=== PATIENT | male | born 1970 | race Caucasian/White ===

== ENCOUNTER → 2016-08-27 | Outpatient (CLI) | payer MEDICARE, MEDICAID ==
[~2016-08-27] MED LIST: /MOXI40TA OR; ATOR40TA PO; AUGM875T27 PO; BUSP15TA47 PO; BUSP30TA PO; CELE40TA OR; FLUO60TA PO; FOLI1TAB OR; IBUP400T OR; LIPI20TA PO; LISI40TAB PO; LISIPOW OR; LYRI20SO PO; MOTR200T44 PO; NORV5TAB PO; OLAN10TA2 PO; OMEP20TA7 OR; OMEP40CA2 PO; PREG25CA PO; PROZ40CA PO; SUBO8MIS SL; THIA100T OR; WELLTAB38 PO; [UNRECOGNIZED DRUG - OTHER]
--- NOTE | 2016-08-27 11:53 | REP ---
Clinical: Pain. History of prior surgery. Technique: AP, lateral, bilateral oblique views of the left wrist. Comparison: 06/18/2016. Findings: The patient is noted to be status post lunate resection for Kienback's disease. Dystrophic calcifications and presumed chondrocalcinosis as well as mild swelling is again identified and essentially unchanged. No new acute findings are identified. Impression: Chronic postsurgical/degenerative changes similar to the 06/18/2016. Signed by Sai Patterson MD 08/27/2016 11:45 A
== END ==
LOC: M RAD 11:27
PROVIDERS: ATTEND Physician Assistant Medical
DX: M25.532 Pain in left wrist (principal); Z47.89 Encounter for other orthopedic aftercare

== ENCOUNTER 2016-08-30 22:11 | Inpatient (IN) | payer MEDICARE, MEDICAID ==
[~2016-08-30] VITALS: Ht 182.9 cm; Wt 108.9 kg
[~2016-08-30 22:11] MED LIST changes: -ATOR40TA PO; -BUSP30TA PO; -FLUO60TA PO; -OLAN10TA2 PO; -WELLTAB38 PO
[2016-08-30] MEDS ORDERED: ASPIRIN 81 MG CHEW TABLET As Ordered ONE (22:30)
[2016-08-30 23:44] LABS: BASO % 0.3 % (0.0-1.0); EOS # 0.3 K/mm3 (0.0-0.50); EOS % 2.5 % (0.0-3.0); LARGE UNSTAINED CELL # 0.3 K/mm3 (0.0-0.4); LARGE UNSTAINED CELL % 3.2 % (0.0-4.0); LYMPH # 3.2 K/mm3 (1.5-4.5); LYMPH % 26.1 % (24.0-44.0); MEAN CORPUSCULAR HEMOGLOBIN 28.3 pg (27.0-33.0); MEAN CORPUSCULAR HGB CONC 33.3 g/dl (32.0-36.5); MEAN CORPUSCULAR VOLUME 84.9 fl (80.0-96.0); MONO # 1.2 K/mm3 (0.0-0.8); MONO % 10.9 % (0.0-5.0); NEUTROPHILS # 6.2 K/mm3 (1.8-7.7); PLATELET COUNT, AUTOMATED 176 k/mm3 (150-450); RED CELL DISTRIBUTION WIDTH 14.8 % (11.5-14.5); WHITE BLOOD COUNT 10.8 K/mm3 (4.0-10.0)
[2016-08-30] MEDS ORDERED: fentaNYL 100 MCG/2 ML INJECTION (J3010) As Ordered ONE (23:58)
[2016-08-31] VITALS (7 sets, daily range): BP systolic 112–137; BP diastolic 68–86
[2016-08-31 00:13] LABS: ALKALINE PHOSPHATASE 82 U/L (45-117); ALT/SGPT 153 U/L (12-78); ANION GAP 8 MEQ/L (8-16); AST/SGOT 84 U/L (15-37); BLOOD UREA NITROGEN 15 MG/DL (7-18); CALCIUM LEVEL 7.8 MG/DL (8.5-10.1); CARBON DIOXIDE LEVEL 25 MEQ/L (21-32); CHLORIDE LEVEL 112 MEQ/L (98-107); CREATININE FOR GFR 1.28 MG/DL (0.70-1.30); GLOMERULAR FILTRATION RATE > 60.0 (>60); GLUCOSE, FASTING 85 MG/DL (70-105); SODIUM LEVEL 145 MEQ/L (136-145)
[2016-08-31 00:14] LABS: ALBUMIN 3.3 GM/DL (3.2-5.2); ALBUMIN/GLOBULIN RATIO 0.89 (1.00-1.93); BILIRUBIN,DIRECT < 0.1 MG/DL (0.0-0.2); BILIRUBIN,TOTAL 0.3 MG/DL (0.2-1.0)
[2016-08-31] MEDS ORDERED: FUROSEMIDE 40 MG/4 ML VIAL (J1940) As Ordered ONE ×3 (00:40→04:18)
[2016-08-31] MEDS ORDERED: ATOR40TA PO (01:45)
[2016-08-31] MEDS ORDERED: FLUO60TA PO (01:45)
[2016-08-31] MEDS ORDERED: IPRATROPIUM 0.5MG/ALBUTEROL 2.5MG INH SOL UD 3ML (DUONEB)(J7620) NEB PRN (01:45)
[2016-08-31] MEDS ORDERED: LISI40TAB PO (01:45)
[2016-08-31] MEDS ORDERED: BUSP30TA PO (01:45)
[2016-08-31] MEDS ORDERED: OLAN10TA2 PO (01:45)
[2016-08-31] MEDS ORDERED: NICOTINE 14 MG/24 HR TRANSDERMAL TD SCH (02:00)
[2016-08-31] MEDS ORDERED: WELLTAB38 PO (02:27)
[2016-08-31] MEDS ORDERED: PERCOCET 5MG/325MG TAB As Ordered ONE ×2 (02:33→08:49)
[2016-08-31] MEDS: PERCOCET 5MG/325MG TAB PO PRN ×4 (02:35→21:53)
[2016-08-31] MEDS: FUROSEMIDE 40 MG/4 ML VIAL (J1940) IV SCH ×6 (04:22→23:32)
--- NOTE | 2016-08-31 06:14 | ECGEPIP ---
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
--- NOTE | 2016-08-31 07:05 | HPE ---
DATE OF ADMISSION: 08/31/2016 PRIMARY CARE PROVIDER: Blayne Mayfield, psychiatrist. In the past, it has been Dr. Farrell. CODE STATUS: FULL CODE. CHIEF COMPLAINT: Increasing shortness of breath, dyspnea on exertion, worse over the last 2-3 days. HISTORY OF PRESENT ILLNESS: Mr. Hearn is a pleasant, 45-year-old gentleman seen in the emergency department with increasing lower extremity edema, anasarca with abdominal distension, shortness breath, dyspnea on exertion, paroxysmal nocturnal dyspnea (PND), orthopnea and happened to sleep on three pillows at night for greater than 2 weeks. His who is present with him informs me that his symptoms have been longstanding and progressively worse over the last year to 2 years and the patient has been medically noncompliant with his medications and outpatient followups. He also describes today intermittently noticing substernal chest pain, left shoulder pain and radiation down his left arm. Currently, this has dissipated. He denies any nausea or vomiting. His appetite has been relatively good. He denies any fevers, chills, cough. 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 He does continue to smoke approximately a pack a day. He does have a previous history of polysubstance abuse/use as well as a previous history of alcohol abuse. PAST MEDICAL HISTORY: Includes major depression/bipolar disorder, hypertension, gastroesophageal reflux disease, osteoarthritis, chronic low back pain, tobacco use, history of hepatitis C, polysubstance abuse. PAST SURGICAL HISTORY: Left wrist repair with previous nerve disorder, polypectomy of the throat, and right wrist repair as well. SOCIAL HISTORY: The patient is , lives at home. Smokes approximately a pack a day. Currently denies any alcohol use, but he does have a prior history of alcohol abuse as well as polysubstance abuse. No recent travel. No sick contacts. FAMILY HISTORY: Noncontributory. ALLERGIES: NO KNOWN DRUG ALLERGIES. HOME MEDICATIONS: - Norvasc 10 mg daily - BuSpar 10 mg twice a day - lisinopril 40 mg daily - omeprazole 40 mg daily - lorazepam 0.5 mg nightly - Wellbutrin XL 150 mg daily REVIEW OF SYSTEMS: Constitutional: He denies fevers, chills, rigors. No change in appetite. However, he has had some generalized weakness and shortness of breath. HEENT: No headache, lightheadedness, dizziness. No blurry vision, double vision or tinnitus. Pulmonary: Dyspnea with occasional wheeze, nonproductive cough. No hemoptysis. Cardiovascular: Substernal chest pain earlier today with radiation to jaw, left shoulder and arm. He also describes symptoms of PND, orthopnea, lower extremity edema, dyspnea on exertion. He is able to climb a flight of stairs in his house , which has 20 steps. He states he is quite short of breath and diaphoretic when he reaches the top but he is able to make it the full flight of stairs without stopping. Gastrointestinal (GI): No nausea, vomiting, diarrhea. Denies hematochezia or melena. Genitourinary (): No dysuria, frequency or hematuria. Musculoskeletal: Generalized weakness. Does have chronic low back pain, apparently a history of osteoarthritis of the cervical spine. Neurologic: No paresthesias, paralysis. No history of seizure disorder. Lymphatics: No lumps, bumps, swelling in the neck, axilla or groin. No history of weight loss. No night sweats. Endocrine: Negative for diabetes. Negative for thyroid disorder. Hematology: No history of bleeding or bruising disorder. No history of venous thromboembolism. Oncology: No history of cancer. Psychiatric: Positive for major depression/bipolar disorder and anxiety. History of polysubstance abuse, alcohol abuse. 10-point review of system complete. Pertinent positives are listed. PHYSICAL EXAMINATION: Temperature is 97.2. Pulse is 86 and regular. Respiratory rate is 18 with some auditory wheeze, but he is be able speak complete sentences. Blood pressure (BP ) 141/92. SpO2 is 92% on room air. General: The patient appears to be in no acute distress. He is alert, oriented , pleasant to talk to. HEENT: Head is atraumatic, normocephalic. Jugular venous distention (JVD) is noted to the angle of the jaw. Throat is clear. Neck: Supple. Lungs: Intermittent expiratory wheeze, occasional crackles in the basilar region. Heart: Regular rate and rhythm. Abdomen: Soft, distended. Positive bowel sounds. No masses. No rebound. Lower extremities: He does have 1-2+ edema to the mid huerta. No calf tenderness. LABORATORY DATA: White count is 10.8, hemoglobin 13.4, platelets are 176,000. Sodium 145, potassium 4.0, chloride 112, bicarbonate 25, anion gap 8, BUN is 15, creatinine 1.28, glucose 85, calcium 7.8, total bilirubin 0.3, direct bilirubin less than 0.1, AST 84, ALT 153, alkaline phosphatase is 82, CK is 581, CK-MB is 3.2, troponin less than 0.02, BNP is 79.1, albumin is 3.3. Does appear to have some cephalization of pulmonary vasculature. There is no appreciable pleural effusion. No consolidation. 12-lead EKG: Sinus rhythm with no acute ST-T wave abnormality. However, there is some borderline left axis deviation. Ventricular rate is 83 beats per minute. IMPRESSION: Mr. Hearn is a 45-year-old gentleman who has had increasing shortness of breath, paroxysmal nocturnal dyspnea, orthopnea, dyspnea on exertion and substernal chest pain this evening who will be admitted for cardiac rule out as well as workup for acutely decompensated congestive heart failure. He did receive 80 of Lasix IV in the emergency department and will need to keep him on telemetry overnight, cycle his cardiac enzymes, fluid restrict and start net negative Lasix to see how he improves his symptomatology. PROBLEM LIST: 1. Heart failure, new onset acutely decompensated. 2. Substernal chest pain. 3. Hypertension, possibly related to hypertensive heart disease. 4. Medical noncompliance. 5. Gastroesophageal reflux disease. 6. Depression and anxiety. 7. Tobacco use. Counseling provided. Encourage smoking cessation. 8. History of alcohol abuse. 9. History of hepatitis C. 10. History of polysubstance abuse. 11. Chronic low back pain 12. History of cervical osteoarthritis. PLAN: The patient will be admitted to progressive care unit (PCU) on telemetry per Dr. Carvajal. 80 of Lasix IV given times one now in the emergency department. Will continue with net negative Lasix, fluid restrict 1800 mL/hr. Continue home medications. Hold parameters on Norvasc and lisinopril. Will check a 2-D echo tomorrow, cycles his cardiac marker panel and cardiac rehabilitation. Nicotine patch for smoking cessation and deep venous thrombosis (DVT) prophylaxis with Lovenox. DISPOSITION: Anticipate the patient will be here than two midnights. [employer]
--- NOTE | 2016-08-31 08:02 | REP ---
Clinical: Chest pain and shortness of breath. Technique: PA and lateral. Comparison: 09/23/2015. Findings: Diffuse coarsened interstitial markings and very subtle hazy bilateral opacities suggest bronchitis and multifocal pneumonia / atelectasis. Mediastinum and cardiac silhouette stable. No effusion. No pneumothorax. Skeletal structures intact. Impression: Findings suggest bronchitis with multifocal atelectasis/infiltrate. Signed by Sai Patterson MD 08/31/2016 07:53 A
[2016-08-31] MEDS: LISINOPRIL 40 MG TAB PO SCH (09:18)
[2016-08-31] MEDS: buPROPion **XL** TABLET 150MG (WELLBUTRIN XL) PO SCH (09:18)
[2016-08-31] MEDS: busPIRone 10 MG TAB PO SCH ×2 (09:18→20:33)
[2016-08-31] MEDS: OMEPRAZOLE 20 MG CAP PO SCH (09:18)
[2016-08-31] MEDS: amLODIPine 5 MG TAB PO SCH (09:18)
[2016-08-31 13:34] LABS: INR 0.99
--- NOTE | 2016-08-31 14:51 | EDDOCDS ---
Nurse's Notes [facility] Name: Misty Shay Age: 45 yrs Sex: Male : 1970 Arrival Date: 08/30/2016 Time: 22:11 Bed Admit Hold Private MD: Blayne Mayfield Diagnosis: Acute combined systolic (congestive) and diastolic (congestive) heart failure Presentation: 08/30 22:19 Presenting complaint: Patient states: shortness of breath, leg and feet swelling, chest sls1 tightness, reports out of blood pressure medication. Reports swelling for two days, and generalized body aches, with back pain. Pt also reports has not been voiding. Aspirin was not taken prior to arrival. Adult Sepsis Screening: The patient does not have new or worsening altered mentation. Patient's respiratory rate is less than 22. Systolic blood pressure is greater than 100. Patient has a qSOFA score of 0- Negative Sepsis Screen. Suicide/Homicide risk assessment- the patient denies having any suicidal and/or homicidal ideations and does not present with any other emotional, behavioral or mental health complaints. Status: Patient is not a member services representative or dependent. Transition of care: patient was not received from another setting of care. 22:19 Acuity: TAMIE Level 2 sls1 22:19 Method Of Arrival: Walkin/Carried/Asstd sls1 Triage Assessment: 22:23 General: Appears in no apparent distress, Behavior is appropriate for age, cooperative. sls1 Pain: Location: back, chest, right leg and left leg Pain currently is 6 out of 10 on a pain scale. Pt Declines HIV testing. The patient is triaged at the bedside. See Assessment in Nurses Notes section of ED record. Neurological: No deficits noted. Cardiovascular: Chest pain is described as Pain is 6 out of 10 on a pain scale. radiates Does not radiate. episodes are continuous began. Respiratory: Reports shortness of breath at rest on exertion. Historical: - Allergies: no known allergies; - Home Meds: 1. amlodipine 10 mg Oral tab 1 tab once daily 2. BuSpar 10 mg oral tab 2 times per day 3. lisinopril 40 mg Oral tab 1 tab once daily 4. omeprazole 40 mg Oral cpDR once daily 5. lorazepam 0.5 mg Oral tab nightly 6. Wellbutrin XL 150 mg Oral Tb24 1 tab once daily - PMHx: bone disease; Depression; Hypertension; Bipolar disorder; - PSHx: left wrsit repair; nerve disorder; Polypectomy throat; Right wrist repair; - Social history: Smoking status: Patient uses tobacco products, current every day smoker. No barriers to communication noted, The patient speaks fluent Senegalese, Speaks appropriately for age, former etoh use. - Family history: Not pertinent. - : The pt / caregiver states he / she is not on anticoagulants. Home medication list is obtained from the patient. - Exposure Risk Screening:: None identified. Screenin:36 Screening information is obtained from the patient. Fall risk: No risks identified. ko2 Assistance ADL's: requires no assistance with activities of daily living. Abuse/DV Screen: The patient / caregiver reports he/she is: not in a situation that causes fear, pain or injury. Nutritional screening: No deficits noted. Advance Directives: Currently, there is no health care proxy. There is no active DNR order. There is no living will. There is no Power of Watermelon Harvesting Supervisor. home support is adequate. Assessment: 23:36 General: Appears in no apparent distress, comfortable, Behavior is appropriate for age, ko2 cooperative. Pain: Location: chest and back Pain currently is 6 out of 10 on a pain scale. Cardiovascular: Heart tones S1 S2 present Rhythm is regular. Respiratory: Airway is patent Respiratory effort is even, unlabored. Derm: Skin is normal. 08/31 00:30 General: Appears in no apparent distress, comfortable, Behavior is appropriate for age, ko2 cooperative. Pain: Location: back. Neurological: Level of Consciousness is awake, alert. Respiratory: Airway is patent Respiratory effort is even, unlabored. Derm: Skin is normal. 01:39 General: Appears in no apparent distress, comfortable, Behavior is appropriate for age, ko2 cooperative. Neurological: Level of Consciousness is awake, alert. Respiratory: Airway is patent Respiratory effort is even, unlabored. Derm: Skin is normal. 02:16 General: Report given to brewer nurse Rosanna Senior RN Please see Intelligent[employer] for further ko2 documentation. Vital Signs: 08/30 22:13 BP 148 / 91; Pulse 89; Resp 18 S; Temp 97.2(O); Pulse Ox 97% on R/A; Weight 108.86 kg gr2 (R); Height 6 ft. 0 in. (182.88 cm) (R); Pain 4/10; 08/31 00:02 BP 141 / 92 (auto/); ko2 00:02 Pulse 86 MON; Pulse Ox 92% ; ko2 00:28 BP 144 / 80 (auto/); ko2 00:29 Pulse 86 MON; ko2 00:58 BP 123 / 69 (auto/); ko2 00:58 Pulse 84 MON; Pulse Ox 94% ; ko2 01:28 BP 122 / 71 (auto/); ko2 01:29 Pulse 84 MON; Pulse Ox 95% ; ko2 08/30 22:13 Body Mass Index 32.55 (108.86 kg, 182.88 cm) gr2 Vitals: 08/30 22:13 Log In Time: August 30, 2016 at 22:13. RN notified that patient meets Red Flag gr2 criteria. ED Course: 22:12 Patient visited by Justin Maxwell. gr2 22:12 Blayne Mayfield is Private Physician. gr2 22:12 Patient moved to Waiting gr2 22:16 Rina Trivedi,OUMAR is Primary Nurse. sls1 22:16 Patient moved to 8 sls1 22:20 Kels[facility] Mcdonald FNP [facility] le 22:21 Triage Initiated sls1 22:30 Patient visited by Kelsy Mcdonald FNP. le 22:30 Patient visited by Kelsy Mcdonald FNP. le 22:34 Patient visited by Mirta Cmapos, CITLALLI. cln 22:34 EKG done. (by ED staff). Reviewed by Kelsy MACIAS. cln 22:54 Patient name changed from Misty\S\Giuseppe\S\Shay\S\ to Misty\S\A\S\Shay. EDMS 23:04 [facility] Payment Agreement was scanned into [employer] and attached to record. [facility] 23:35 Patient visited by Rina Trivedi RN. ko2 23:35 B-Type Natiuretic Peptide Sent. ko2 23:35 Basic Metabolic Profile Sent. ko2 23:35 CBC with Diff Sent. ko2 23:35 Cardiac Injury Profile Sent. ko2 23:35 Troponin Sent. ko2 23:35 Inserted saline lock: 20 gauge in left antecubital area and blood collected. The ko2 patient tolerated the procedure well. 23:36 Patient visited by Rina Trivedi RN. ko2 08/31 00:04 LIVER PROFILE Sent. ko2 00:10 The patient / caregiver is instructed regarding the plan of care and ED course. Cardiac ko2 monitor on. Pulse ox on. NIBP on. 00:29 Patient visited by Rina Trivedi RN. ko2 00:48 José Lopez DO is Hospitalizing Provider. le 02:23 Patient moved to 10 jul 03:26 Patient moved to Admit Hold ml3 06:33 EKG-ADULT Returned. EDMS 07:14 Primary Nurse role handed off by Rina Trivedi RN js13 08:12 Chest, 2 View (pa\E\lat) Returned. EDMS 14:39 No procedures done that require assistance. me3 Administered Medications: 08/30 23:35 Drug: Aspirin 324 mg [aspirin 81 mg chewable tablet (4 tabs)] Route: PO; ko2 08/31 00:03 Drug: fentaNYL (PF) 50 mcg [fentanyl (PF) 50 mcg/mL injection solution (1 mL)] Route: ko2 IVP; Site: left antecubital; 00:46 CANCELLED (Other Intervention Used): Furosemide 40 mg IVP once le 00:53 Drug: Furosemide 80 mg [furosemide 10 mg/mL injection solution (8 mL)] Route: IVP; mb9 Site: left antecubital; Output: 00:30 Urine: 525.00ml (Voided); Total: 525.00ml. ko2 01:39 Urine: 1450.00ml (Voided); Total: 1975.00ml. ko2 Order Results: Lab Order: B-Type Natiuretic Peptide; SPEC'M 08/30/16 23:33 Test: BRAIN NATRIURETIC PEPTIDE; Value: 79.1; Range: <100; Units: PG/ML; Status: F Lab Order: Basic Metabolic Profile; SPEC'M 08/30/16 23:33 Test: GLUCOSE, FASTING; Value: 85; Range: 70-105; Units: MG/DL; Status: F Test: BLOOD UREA NITROGEN; Value: 15; Range: 7-18; Units: MG/DL; Status: F Test: CREATININE FOR GFR; Value: 1.28; Range: 0.70-1.30; Units: MG/DL; Status: F Test: GLOMERULAR FILTRATION RATE; Value: > 60.0; Range: >60; Status: F Test: SODIUM LEVEL; Value: 145; Range: 136-145; Units: MEQ/L; Status: F Test: POTASSIUM SERUM; Value: 4.0; Range: 3.5-5.1; Units: MEQ/L; Status: F Test: CHLORIDE LEVEL; Value: 112; Range: 98-107; Abnormal: Above high normal; Units: MEQ/L; Status: F Test: CARBON DIOXIDE LEVEL; Value: 25; Range: 21-32; Units: MEQ/L; Status: F Test: ANION GAP; Value: 8; Range: 8-16; Units: MEQ/L; Status: F Test: CALCIUM LEVEL; Value: 7.8; Range: 8.5-10.1; Abnormal: Below low normal; Units: MG/DL; Status: F Test Note: ; Units are mL/min/1.73 m2 Chronic Kidney Disease Staging per NKF: Stage I & II GFR >=60 Normal to Mildly Decreased Stage III GFR 30-59 Moderately Decreased Stage IV GFR 15-29 Severely Decreased Stage V GFR <15 Very Little GFR Left ESRD GFR <15 on PHYSIOGNOMIST Lab Order: CBC with Diff; SPEC'M 08/30/16 23:33 Test: WHITE BLOOD COUNT; Value: 10.8; Range: 4.0-10.0; Abnormal: Above high normal; Units: K/mm3; Status: F Test: RED BLOOD COUNT; Value: 4.73; Range: 4.30-6.10; Units: M/mm3; Status: F Test: HEMOGLOBIN; Value: 13.4; Range: 14.0-18.0; Abnormal: Below low normal; Units: g/dl; Status: F Test: HEMATOCRIT; Value: 40.1; Range: 42.0-52.0; Abnormal: Below low normal; Units: %; Status: F Test: MEAN CORPUSCULAR VOLUME; Value: 84.9; Range: 80.0-96.0; Units: fl; Status: F Test: MEAN CORPUSCULAR HEMOGLOBIN; Value: 28.3; Range: 27.0-33.0; Units: pg; Status: F Test: MEAN CORPUSCULAR HGB CONC; Value: 33.3; Range: 32.0-36.5; Units: g/dl; Status: F Test: RED CELL DISTRIBUTION WIDTH; Value: 14.8; Range: 11.5-14.5; Abnormal: Above high normal; Units: %; Status: F Test: PLATELET COUNT, AUTOMATED; Value: 176; Range: 150-450; Units: k/mm3; Status: F Test: NEUTROPHILS %; Value: 57.0; Range: 36.0-66.0; Units: %; Status: F Test: LYMPH %; Value: 26.1; Range: 24.0-44.0; Units: %; Status: F Test: MONO %; Value: 10.9; Range: 0.0-5.0; Abnormal: Above high normal; Units: %; Status: F Test: EOS %; Value: 2.5; Range: 0.0-3.0; Units: %; Status: F Test: BASO %; Value: 0.3; Range: 0.0-1.0; Units: %; Status: F Test: LARGE UNSTAINED CELL %; Value: 3.2; Range: 0.0-4.0; Units: %; Status: F Test: NEUTROPHILS #; Value: 6.2; Range: 1.8-7.7; Units: K/mm3; Status: F Test: LYMPH #; Value: 3.2; Range: 1.5-4.5; Units: K/mm3; Status: F Test: MONO #; Value: 1.2; Range: 0.0-0.8; Abnormal: Above high normal; Units: K/mm3; Status: F Test: EOS #; Value: 0.3; Range: 0.0-0.50; Units: K/mm3; Status: F Test: BASO #; Value: 0.0; Range: 0.0-0.2; Units: K/mm3; Status: F Test: LARGE UNSTAINED CELL #; Value: 0.3; Range: 0.0-0.4; Units: K/mm3; Status: F Lab Order: Cardiac Injury Profile; SPEC'M 08/30/16 23:33 Test: CPK CREATINE PHOSPHOKINASE; Value: 581; Range: 39-308; Abnormal: Above high normal; Units: U/L; Status: F Test: CK-MB VALUE MASS; Value: 3.2; Range: 0.0-3.6; Units: NG/ML; Status: F Test: MB/CK RELATIVE INDEX; Value: 0.55; Range: < OR =4; Status: F Test Note: ; DIAGNOSIS CRITERIA MMB ng/ml Relative Index (RI) NON-AMI < or = 5 N/A STEVENS ZONE > 5 < or = 4 AMI > 5 > 4 Lab Order: Troponin; SPEC' 08/30/16 23:33 Test: TROPONIN I; Value: < 0.02; Range: < 0.10; Units: NG/ML; Status: F Test Note: ; Troponin I Reference Interval for [email or web address] LOCI: 99th Percentile= 0.00-0.045 ng/ml Risk Stratification: <= 0.10 ng/ml Decreased Risk for Adverse Clinical Events. 0.10-1.50 ng/ml Increased Risk for Adverse Clinical Events. Evaluation of additional criterion and/or repeat testing in 2-6 hours is suggested to rule out myocardial damage. >= 1.50 ng/ml Indicative of Myocardial Injury. Lab Order: LIVER PROFILE; [facility] 08/30/16 23:33 Test: AST/SGOT; Value: 84; Range: 15-37; Abnormal: Above high normal; Units: U/L; Status: F Test: ALT/SGPT; Value: 153; Range: 12-78; Abnormal: Above high normal; Units: U/L; Status: F Test: ALKALINE PHOSPHATASE; Value: 82; Range: 45-117; Units: U/L; Status: F Test: BILIRUBIN,TOTAL; Value: 0.3; Range: 0.2-1.0; Units: MG/DL; Status: F Test: BILIRUBIN,DIRECT; Value: < 0.1; Range: 0.0-0.2; Units: MG/DL; Status: F Test: TOTAL PROTEIN; Value: 7.0; Range: 6.4-8.2; Units: GM/DL; Status: F Test: ALBUMIN; Value: 3.3; Range: 3.2-5.2; Units: GM/DL; Status: F Test: ALBUMIN/GLOBULIN RATIO; Value: 0.89; Range: 1.00-1.93; Abnormal: Below low normal; Status: F Lab Order: CARDIAC MARKER PANEL; [facility]08/31/16 06:07 Test: CPK CREATINE PHOSPHOKINASE; Value: 518; Range: 39-308; Abnormal: Above high normal; Units: U/L; Status: F Test: CK-MB VALUE MASS; Value: 3.1; Range: 0.0-3.6; Units: NG/ML; Status: F Test: MB/CK RELATIVE INDEX; Value: 0.59; Range: < OR =4; Status: F Test: TROPONIN I; Value: < 0.02; Range: < 0.10; Units: NG/ML; Status: F Test Note: ; DIAGNOSIS CRITERIA MMB ng/ml Relative Index (RI) NON-AMI < or = 5 N/A STEVENS ZONE > 5 < or = 4 AMI > 5 > 4 Lab Order: CARDIAC MARKER PANEL; [facility]08/31/16 11:46 Test: CPK CREATINE PHOSPHOKINASE; Value: 429; Range: 39-308; Abnormal: Above high normal; Units: U/L; Status: F Test: CK-MB VALUE MASS; Value: 2.2; Range: 0.0-3.6; Units: NG/ML; Status: F Test: MB/CK RELATIVE INDEX; Value: 0.51; Range: < OR =4; Status: F Test: TROPONIN I; Value: < 0.02; Range: < 0.10; Units: NG/ML; Status: F Test Note: ; DIAGNOSIS CRITERIA MMB ng/ml Relative Index (RI) NON-AMI < or = 5 N/A STEVENS ZONE > 5 < or = 4 AMI > 5 > 4 Lab Order: C REACTIVE PROTEIN QUANTITATIV; [facility]08/31/16 10:42 Test: C REACTIVE PROTEIN QUANTITATIV; Value: 0.79; Range: 0.00-0.30; Abnormal: Above high normal; Units: MG/DL; Status: F Lab Order: ERYTHROCYTE SEDIMENTATION RATE; [facility]08/31/16 10:42 Test: ERYTHROCYTE SEDIMENTATION RATE; Value: 14; Range: 0-15; Units: mm/hr; Status: F Lab Order: HEPATITIS PROFILE; [facility]08/31/16 10:42 Test: HEPATITIS C VIRUS NEHEMIAH INDEX; Value: > 11.0; Range: <0.8; Abnormal: Above high normal; Units: INDEX; Status: F Test: HEPATITIS B SURFACE ANTIGEN; Value: NEGATIVE; Range: NEGATIVE; Status: F Test: HEPATITIS B CORE ANTIBODY IGM; Value: NEGATIVE; Range: NEGATIVE; Status: F Test: HEPATITIS A ANTIBODY IGM; Value: NEGATIVE; Range: NEGATIVE; Status: F Test Note: ; This screening test for Hepatitis C Virus was above the 1.0 cutoff index value and will be sent for Hep C RNA OC testing to confirm or exclude active Hepatitis C Virus infection. Screening test Positive samples with high index values (>11.0) usually (95%) confirm Positive, but <5 of every 100 samples with this result might be a false positive and Hep C RNA OC testing will aid in patient management. Lab Order: LACTIC ACID LEVEL, LACTATE; SPEC'M 08/31/16 10:41 Test: LACTIC ACID SEPSIS PROTOCOL; Value: 1.3; Range: 0.4-2.0; Units: MMOL/L; Status: F Lab Order: INFLUENZA A&B RAPID ANTIGEN; SPEC'M 08/31/16 10:39 Test: INFLUENZA A RAPID SCR by ICA; Value: INFLUENZA A RESULTS NEGATIVE; Status: F Test: INFLUENZA A RAPID SCR by ICA; Value: Comments:; Status: F Test: INFLUENZA B RAPID SCR by ICA; Value: INFLUENZA B RESULTS NEGATIVE; Status: F Test Note: ; The Influenza test is a direct rapid immunoassay for the qualitative detection of Influenza viral antigen. Cell culture (Viral Culture) testing should be considered to confirm NEGATIVE results and to assist in detecting other viruses that can provide similar clinical symptoms. Please contact the lab within 24 hours ([phone]) if confirmatory testing is desired. Lab Order: RESPIRATORY PANEL; SPEC'M 08/31/16 10:39 Test: RESPIRATORY PANEL; Value: RP PANEL RESULT NEGATIVE by PCR; Status: F Test: RESPIRATORY PANEL; Value: Comments:; Status: F Test Note: ; This respiratory PCR panel detects Influenza A H1, H3 and 2009 H1 viruses, Influenza B virus, Respiratory syncytial virus, Human metapneumovirus, Parainfluenza virus 1, 2, 3 and 4, Adenovirus, Rhinovirus/Enterovirus, Coronavirus HKU1, NL63, OC43 and 229E, Bordetella pertussis, Mycoplasma pneumoniae and Chlamydia pneumoniae. Lab Order: PROTHROMBIN TIME PROFILE\E\INR; SPEC'M 08/31/16 13:12 Test: PROTHROMBIN TIME; Value: 13.2; Range: 12.3-14.5; Units: SECONDS; Status: F Test: INR; Value: 0.99; Status: F Test Note: ; THERAPUTIC HUMAN INR VALUES INDICATIONS NORMAL RANGES PROPHYLAXIS/TREATMENT OF: VENOUS THROMBOSIS 2.0-3.0 PULMONARY EMBOLISM 2.0-3.0 PREVENTION OF SYSTEMIC EMBOLISM FROM: TISSUE HEART VALVES 2.0-3.0 ACUTE MYOCARDIAL INFARCTION 2.0-3.0 VALVULAR HEART DISEASE 2.0-3.0 ATRIAL FIBRILLATION 2.0-3.0 MECHANICAL VALVES(HIGH RISK) 2.5-3.5 RECURRENT MYOCARDIAL INFARCTION 2.5-3.5 Lab Order: D-DIMER QUANT; SPEC'M 08/31/16 13:12 Test: D-DIMER QUANT; Value: 352.1; Range: <500; Units: ng/ml; Status: F Radiology Order: EKG-ADULT Test: EKG-ADULT REASON FOR EXAMINATION: Chest Pain; Stationary ECG Study; [facility] - ED; ; Test Date: 2016-08-30; Pat Name: IMSTY SHAY Department:; Room: -; 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; : 1970 Requested By: JAGUAR Lee; Order Number: [id number] Reading MD: Elian Lilly; Measurements; Intervals [place]; Rate: 83 P: 28; MN: 177 QRS: -24; QRSD: 102 T: 30; QT: 376; QTc: 444; Interpretive Statements; SINUS RHYTHM; BORDERLINE LEFT AXIS DEVIATION; SIMILAR TO 04/02/16; Electronically Signed On 08-31-2016 6:14:32 EST by Elian Lilly; Radiology Order: Chest, 2 View (pa\E\lat) Test: Chest, 2 View (pa\E\lat) REASON FOR EXAMINATION: Chest Pain;Shortness of Breath; Clinical: Chest pain and shortness of breath.; ; Technique: PA and lateral.; ; Comparison: 09/23/2015.; ; Findings:; Diffuse coarsened interstitial markings and very subtle hazy bilateral opacities; suggest bronchitis and multifocal pneumonia / atelectasis. Mediastinum and; cardiac silhouette stable. No effusion. No pneumothorax. Skeletal structures; intact.; ; Impression:; Findings suggest bronchitis with multifocal atelectasis/infiltrate.; ; ; Signed by; Misty Patterson MD 08/31/2016 07:53 A; Outcome: 00:48 Decision to Hospitalize by Provider. rick 02:11 Discharge Assessment: Patient awake, alert and oriented x 3. No cognitive and/or ko2 functional deficits noted. Patient verbalized understanding of disposition instructions. patient administered narcotics - yes. 14:39 The following High Risk Discharge criteria are identified: None. Admitted PACU holding, me3 accompanied by nurse, on monitor, with chart. Condition: stable. 14:40 Property :Personal belongings accompany Pt. me3 14:41 No special radiology studies were completed. me3 14:51 Patient left the ED. srm Signatures: Dispatcher [employer]DA[employer] Cece Hatch, RN RN alyx Hassan, Lois Elaine RN OUMAR Patel, Vitaliy, Food And Beverage Cashier Unit ml3 Genesis Trujillo,FRESH FOOD MANAGER FRESH FOOD MANAGER me3 Kelsy Mcdonald, NIGHT ORDER SELECTOR NIGHT ORDER SELECTOR Brigida Monroe RN RN sls1 Breanna KumarRN RN js13 Justin Maxwell gr2 Rina TrivediRN RN emeterio2 Juanita Trejo Michael,RN RN mb9 Mirta Campos, CITLALLI INVENTORY ACCOUNTANT cln Corrections: (The following items were deleted from the chart) 08/30 23:58 23:35 LIVER PROFILE+LAB sent. [address] 08/31 02:17 02:16 General: Report given to brewer nurse Rosanna Senior RN. [place] [id number] MTDD
--- NOTE | 2016-08-31 14:51 | EDDOCDS ---
Physician Documentation [facility] Name: Sai Hearn Age: 45 yrs Sex: Male : 1970 Arrival Date: 08/30/2016 Time: 22:11 Bed Admit Hold Private MD: Blayne Mayfield Disposition: 08/31/16 00:48 Hospitalization ordered by José Lopez for Inpatient Admission. Preliminary diagnosis is Acute combined systolic (congestive) and diastolic (congestive) heart failure. - Bed requested for Admit. - Status is Inpatient Admission. srm - Condition is Stable. - Problem is new. - Symptoms are unchanged. Historical: - Allergies: no known allergies; - Home Meds: 1. amlodipine 10 mg Oral tab 1 tab once daily 2. BuSpar 10 mg oral tab 2 times per day 3. lisinopril 40 mg Oral tab 1 tab once daily 4. omeprazole 40 mg Oral cpDR once daily 5. lorazepam 0.5 mg Oral tab nightly 6. Wellbutrin XL 150 mg Oral Tb24 1 tab once daily - PMHx: bone disease; Depression; Hypertension; Bipolar disorder; - PSHx: left wrsit repair; nerve disorder; Polypectomy throat; Right wrist repair; - Social history: Smoking status: Patient uses tobacco products, current every day smoker. No barriers to communication noted, The patient speaks fluent Chadian, Speaks appropriately for age, former etoh use. - Family history: Not pertinent. - : The pt / caregiver states he / she is not on anticoagulants. Home medication list is obtained from the patient. - Exposure Risk Screening:: None identified. Vital Signs: 08/30 22:13 BP 148 / 91; Pulse 89; Resp 18 S; Temp 97.2(O); Pulse Ox 97% on R/A; Weight 108.86 kg / gr2 240 lbs (R); Height 6 ft. 0 in. (182.88 cm) (R); Pain 4/10; 08/31 00:02 BP 141 / 92 (auto/); ko2 00:02 Pulse 86 MON; Pulse Ox 92% ; ko2 00:28 BP 144 / 80 (auto/); ko2 00:29 Pulse 86 MON; ko2 00:58 BP 123 / 69 (auto/); ko2 00:58 Pulse 84 MON; Pulse Ox 94% ; ko2 01:28 BP 122 / 71 (auto/); ko2 01:29 Pulse 84 MON; Pulse Ox 95% ; ko2 08/30 22:13 Body Mass Index 32.55 (108.86 kg, 182.88 cm) gr2 MDM: 08/30 22:17 ECG WITH READING ER PHYS+CARDIAG ordered. EDMS 22:21 Aspirin Chewable Tablet 324 mg PO once ordered. le 22:21 Bait Packer/Pulse Ox/q 30 min VS ordered. le 22:21 IV Saline Lock ordered. le 22:21 Rhythm Strip to chart ordered. le 22:21 Undress patient appropriately for examination ordered. le 22:23 Chest, 2 View (pa\E\lat) Ordered. EDMS 22:23 B-Type Natiuretic Peptide Ordered. EDMS 22:23 Basic Metabolic Profile Ordered. EDMS 22:23 CBC with Diff Ordered. EDMS 22:23 Cardiac Injury Profile Ordered. EDMS 22:23 Troponin Ordered. EDMS 22:52 Financial registration complete. [facility] 23:04 [facility] Payment Agreement was scanned into [employer] and attached to record. [facility] 23:56 fentaNYL (PF) 50 mcg IVP once ordered. le 23:56 CBC with Diff Reviewed. le 23:58 LIVER PROFILE Ordered. EDMS 08/31 00:05 B-Type Natiuretic Peptide Reviewed. le 00:17 Basic Metabolic Profile Reviewed. le 00:17 LIVER PROFILE Reviewed. le 00:17 Troponin Reviewed. le 00:25 Bladder Scan please ordered. le 00:25 Basic Metabolic Profile Reviewed. le 00:25 Cardiac Injury Profile Reviewed. le 00:25 LIVER PROFILE Reviewed. le 00:25 Troponin Reviewed. le 00:46 Furosemide 80 mg IVP once ordered. le 00:47 BED REQUEST+ADM ordered. EDMS 01:52 PHYSICAL THERAPY EVAL & TREAT ordered. EDMS 01:53 Admission / Observation Status ordered. EDMS 01:53 ECHOCARD,DOPPLER/COLOR FLOW ordered. EDMS 01:53 CARDIAC MARKER PANEL Ordered. EDMS 01:54 CARDIAC MARKER PANEL Ordered. EDMS 02:06 2 GRAM SODIUM DIET ordered. EDMS 10:21 C REACTIVE PROTEIN QUANTITATIV Ordered. EDMS 10:21 ERYTHROCYTE SEDIMENTATION RATE Ordered. EDMS 10:22 HEPATITIS PROFILE Ordered. EDMS 10:22 LACTIC ACID LEVEL, LACTATE Ordered. EDMS 10:22 INFLUENZA A&B RAPID ANTIGEN Ordered. EDMS 10:22 RESPIRATORY PANEL Ordered. EDMS 10:22 Abdomen, limited US Ordered. EDMS 12:10 HCV RNA OC QUALITATIVE Ordered. EDMS 12:51 PROTHROMBIN TIME PROFILE\E\INR Ordered. EDMS 12:55 D-DIMER QUANT Ordered. EDMS Administered Medications: 08/30 23:35 Drug: Aspirin 324 mg [aspirin 81 mg chewable tablet (4 tabs)] Route: PO; ko2 08/31 00:03 Drug: fentaNYL (PF) 50 mcg [fentanyl (PF) 50 mcg/mL injection solution (1 mL)] Route: ko2 IVP; Site: left antecubital; 00:46 CANCELLED (Other Intervention Used): Furosemide 40 mg IVP once le 00:53 Drug: Furosemide 80 mg [furosemide 10 mg/mL injection solution (8 mL)] Route: IVP; mb9 Site: left antecubital; Signatures: Dispatcher [employer] EDCece Self, RN OUMAR Mcdonald, Kelsy, RN ENT RN ENT Brigida Monroe RN RN sls1 Rina Trivedi RN RN ko2 Juanita Trejo Michael RN mb9 The chart was reviewed and I authenticate all verbal orders and agree with the evaluation and treatment provided.Corrections: (The following items were deleted from the chart) 08/30 23:58 22:39 LIVER PROFILE+LAB ordered. EDMS EDMS 08/31 00:46 00:38 Furosemide 40 mg IVP once ordered. le le 00:46 00:46 Furosemide 40 mg IVP once ordered. le le 02:05 01:53 2 GRAM SODIUM DIET ordered. EDMS EDMS 12:55 12:45 D-DIMER QUANT ordered. EDMS EDMS Attachments: 08/30 23:04 [facility] Payment Agreement [facility]
[2016-08-31] MEDS: LORazepam 0.5 MG TAB PO PRN (20:49)
[2016-09-01] MEDS: FUROSEMIDE 40 MG/4 ML VIAL (J1940) IV SCH ×2 (03:55→08:11)
[2016-09-01] MEDS: PERCOCET 5MG/325MG TAB PO PRN ×3 (03:55→17:29)
[2016-09-01 04:00] VITALS: BP 124/86
[2016-09-01 06:29] LABS: MEAN CORPUSCULAR HEMOGLOBIN 28.6 pg (27.0-33.0); MEAN CORPUSCULAR HGB CONC 33.8 g/dl (32.0-36.5); MEAN CORPUSCULAR VOLUME 84.6 fl (80.0-96.0); RED CELL DISTRIBUTION WIDTH 14.7 % (11.5-14.5); WHITE BLOOD COUNT 6.9 K/mm3 (4.0-10.0)
[2016-09-01 06:54] LABS: ANION GAP 8 MEQ/L (8-16); BLOOD UREA NITROGEN 16 MG/DL (7-18); CALCIUM LEVEL 8.6 MG/DL (8.5-10.1); CARBON DIOXIDE LEVEL 29 MEQ/L (21-32); CHLORIDE LEVEL 102 MEQ/L (98-107); CREATININE FOR GFR 1.21 MG/DL (0.70-1.30); GLOMERULAR FILTRATION RATE > 60.0 (>60); GLUCOSE, FASTING 124 MG/DL (70-105); POTASSIUM SERUM 3.8 MEQ/L (3.5-5.1); SODIUM LEVEL 139 MEQ/L (136-145)
--- NOTE | 2016-09-01 07:50 | REP ---
Clinical: Elevated liver function tests . Technique: Fitzpatrick scale ultrasound using curved array transducer. Findings: The liver and pancreas are normal in contour, size, and echogenicity without focal hepatic or pancreatic lesions identified. The gallbladder is normal without gallstones, wall thickening or pericholecystic fluid. No biliary ductal dilatation is appreciated, and the common bile duct measures 3.6 mm diameter. The right kidney is normal in reniform shape without hydronephrosis and measures 10.3 x 4.0 x 6.0 cm. No ascites. Visualized portions of the abdominal aorta normal. Impression: Normal right upper quadrant and gallbladder abdominal ultrasound. Signed by Sai Patterson MD 09/01/2016 07:42 A
[2016-09-01 08:00] VITALS: BP 139/87
[2016-09-01] MEDS: amLODIPine 5 MG TAB PO SCH (08:11)
[2016-09-01] MEDS: OMEPRAZOLE 20 MG CAP PO SCH (08:11)
[2016-09-01] MEDS: LISINOPRIL 40 MG TAB PO SCH (08:12)
[2016-09-01] MEDS: busPIRone 10 MG TAB PO SCH ×2 (08:12→20:12)
[2016-09-01] MEDS: buPROPion **XL** TABLET 150MG (WELLBUTRIN XL) PO SCH (08:12)
[2016-09-01 11:10] VITALS: BP 122/78
[2016-09-01] MEDS ORDERED: IBUPROFEN 800 MG TAB PO PRN (12:45)
[2016-09-01 14:00] VITALS: BP 117/61
--- NOTE | 2016-09-01 16:15 | IPNPDOC ---
Subjective Date Seen The patient was seen on 09/01/16. Subjective Chief Complaint/HPI The patient is a 45-year-old male admitted with a reason for visit of Chest Pain , Chf. General: Denies: Chills, Night Sweats Constitutional: Denies: Chills, Fever Eyes: Denies: Pain, Vision change ENT: Denies: Ear Pain, Head Aches Skin: Denies: Lesions, Rash Pulmonary: Denies: Cough, Dyspnea Cardiovascular: Denies: Chest Pain, Orthopnea, Palpitations Gastrointestinal: Denies: Nausea, Vomiting Genitourinary: Denies: Dysuria Hematologic: Denies: Bleeding Excessively, Bruising Objective Physical Examination General Exam: Positive: Alert, Cooperative, No Acute Distress ENT Exam: Positive: Atraumatic, Mucous membr. moist/pink Neck Exam: Negative: JVD Chest Exam: Positive: Clear to auscultation, Normal air movement Heart Exam: Positive: Normal S1, Normal S2, Rate Normal Abdomen Exam: Positive: Soft, Negative: Tenderness Extremity Exam: Negative: Swelling, Tenderness Assessment /Plan Plan/VTE VTE Prophylaxis Ordered?: Yes Plan 1. Heart failure, new onset acutely decompensated. 2-D echocardiogram pending Status post IV Lasix every 4 hours, this has been transitioned to by mouth Lasix 40 mg daily Daily weights Monitor I's and O's Fluid restriction The patient states that his volume status has markedly improved, as well as his dyspnea The patient has a net negative fluid balance of 5 L over the last 48 hours The patient has been weaned off of all supplemental oxygen We will continue to monitor the patient's volume status 2. Hypertension, possibly related to hypertensive heart disease. Continue current antihypertensive regimen 3. Gastroesophageal reflux disease. Continue PPI 4. Depression and anxiety. Continue current medication regimen 5. Tobacco use Encourage smoking cessation. 6. History of alcohol abuse. 7. History of hepatitis C. 8. History of polysubstance abuse. 9. Chronic low back pain 10. History of cervical osteoarthritis. DVT prophylaxis-Lovenox VS, I&O, 24H, Fishbone Vital Signs/I&O Vital Signs Date Time Temp Pulse Resp B/P Pulse Ox O2 Delivery O2 Flow Rate FiO2 09/01/16 14:00 95.4 81 18 117/61 94 Room Air I&O- Last 24 Hours up to 6 AM 09/01/16 06:00 Intake Total 1230 ml Output Total 2475 ml Balance -1245 ml Laboratory Data 24H LABS Laboratory Tests 2 09/01/16 06:09: Anion Gap 8, Blood Urea Nitrogen 16, Creatinine 1.21, Sodium Level 139, Potassium Level 3.8, Chloride Level 102, Carbon Dioxide Level 29, Calcium Level 8.6, Glomerular Filtration Rate > 60.0 CBC/BMP Laboratory Tests 09/01/16 06:09 Calcium Level 8.6, Red Blood Count 5.46, Mean Corpuscular Volume 84.6, Mean Corpuscular Hemoglobin 28.6, Mean Corpuscular Hemoglobin Concent 33.8, Red Cell Distribution Width 14.7 H Microbiology Microbiology 08/31/16 Influenza Virus Type A Antigen - Final, Complete 08/31/16 Influenza Virus Type B Antigen - Final, Complete 08/31/16 Respiratory Virus Panel (PCR) ([facility]) - Final, Complete JANIS STEINER MD Sep 01, 2016 16:15
[2016-09-01] MEDS: LORazepam 0.5 MG TAB PO PRN (20:11)
[2016-09-01] MEDS: NYSTATIN 100,000 UNITS/GM TOPICAL PWD 15 GM TOP PRN (21:52)
[2016-09-01 22:00] VITALS: BP 104/69
[2016-09-02] MEDS: PERCOCET 5MG/325MG TAB PO PRN ×3 (05:24→17:33)
[2016-09-02 05:31] LABS: MEAN CORPUSCULAR HEMOGLOBIN 29.3 pg (27.0-33.0); MEAN CORPUSCULAR HGB CONC 34.2 g/dl (32.0-36.5); MEAN CORPUSCULAR VOLUME 85.7 fl (80.0-96.0); RED CELL DISTRIBUTION WIDTH 14.7 % (11.5-14.5)
[2016-09-02 05:45] LABS: ANION GAP 7 MEQ/L (8-16); CALCIUM LEVEL 8.7 MG/DL (8.5-10.1); CARBON DIOXIDE LEVEL 28 MEQ/L (21-32); CHLORIDE LEVEL 105 MEQ/L (98-107); CREATININE FOR GFR 1.27 MG/DL (0.70-1.30); GLOMERULAR FILTRATION RATE > 60.0 (>60); GLUCOSE, FASTING 125 MG/DL (70-105); POTASSIUM SERUM 4.2 MEQ/L (3.5-5.1); SODIUM LEVEL 140 MEQ/L (136-145)
[2016-09-02 05:58] LABS: BLOOD UREA NITROGEN 30 MG/DL (7-18)
[2016-09-02 06:00] VITALS: BP 129/88
[2016-09-02] MEDS: OMEPRAZOLE 20 MG CAP PO SCH (09:00)
[2016-09-02] MEDS: buPROPion **XL** TABLET 150MG (WELLBUTRIN XL) PO SCH (09:00)
[2016-09-02] MEDS: ENOXAPARIN 40 MG/0.4 ML SYRINGE (J1650) SC SCH (09:00)
[2016-09-02] MEDS: LISINOPRIL 40 MG TAB PO SCH (09:01)
[2016-09-02] MEDS: amLODIPine 5 MG TAB PO SCH (09:01)
[2016-09-02] MEDS: busPIRone 10 MG TAB PO SCH ×2 (09:01→20:08)
[2016-09-02] MEDS: NYSTATIN 100,000 UNITS/GM TOPICAL PWD 15 GM TOP PRN ×2 (09:02→20:11)
[2016-09-02] MEDS: FUROSEMIDE 40 MG TAB PO SCH (09:02)
[2016-09-02] MEDS ORDERED: INFLUENZA QUADRIVALENT PF VACCINE 0.5ML SYRINGE/VIAL (90686) IM ONE (13:00)
[2016-09-02 14:00] VITALS: BP 115/56
--- NOTE | 2016-09-02 14:15 | IPNPDOC ---
Subjective Date Seen The patient was seen on 09/02/16. Subjective Chief Complaint/HPI The patient is a 45-year-old male admitted with a reason for visit of Chest Pain , Chf. General: Denies: Chills, Night Sweats Constitutional: Denies: Chills, Fever Eyes: Denies: Pain, Vision change ENT: Denies: Ear Pain, Head Aches Skin: Denies: Lesions, Rash Pulmonary: Denies: Cough, Dyspnea Cardiovascular: Denies: Chest Pain, Palpitations Gastrointestinal: Denies: Nausea, Vomiting Genitourinary: Denies: Dysuria, Frequency Hematologic: Denies: Bleeding Excessively, Bruising Objective Physical Examination General Exam: Positive: Alert, Cooperative, No Acute Distress ENT Exam: Positive: Atraumatic, Mucous membr. moist/pink Neck Exam: Negative: JVD Chest Exam: Positive: Clear to auscultation, Normal air movement Heart Exam: Positive: Normal S1, Normal S2, Rate Normal Abdomen Exam: Positive: Soft, Negative: Tenderness Extremity Exam: Negative: Swelling, Tenderness Assessment /Plan Plan/VTE VTE Prophylaxis Ordered?: Yes Plan 1. Heart failure, new onset acutely decompensated. 2-D echocardiogram pending Continue on Lasix 40 mg daily Daily weights Monitor I's and O's Fluid restriction We will continue to monitor the patient's volume status, and await the results of the 2-D echo in an effort to better titrate his diuretic dosage. 2. Hypertension, possibly related to hypertensive heart disease. Continue current antihypertensive regimen 3. Gastroesophageal reflux disease. Continue PPI 4. Depression and anxiety. Continue current medication regimen 5. Tobacco use Encourage smoking cessation. 6. History of alcohol abuse. 7. History of hepatitis C. 8. History of polysubstance abuse. 9. Chronic low back pain 10. History of cervical osteoarthritis. DVT prophylaxis-Lovenox VS, I&O, 24H, Fishbone Vital Signs/I&O Vital Signs Date Time Temp Pulse Resp B/P Pulse Ox O2 Delivery O2 Flow Rate FiO2 09/02/16 14:00 97.5 89 18 115/56 97 Room Air I&O- Last 24 Hours up to 6 AM 09/02/16 06:00 Intake Total 1920 ml Output Total 1700 ml Balance 220 ml Laboratory Data 24H LABS Laboratory Tests 2 09/02/16 05:11: Anion Gap 7L, Blood Urea Nitrogen 30#H, Creatinine 1.27, Sodium Level 140, Potassium Level 4.2, Chloride Level 105, Carbon Dioxide Level 28, Calcium Level 8.7, Glomerular Filtration Rate > 60.0 CBC/BMP Laboratory Tests 09/02/16 05:11 Calcium Level 8.7, Red Blood Count 5.40, Mean Corpuscular Volume 85.7, Mean Corpuscular Hemoglobin 29.3, Mean Corpuscular Hemoglobin Concent 34.2, Red Cell Distribution Width 14.7 H Microbiology Microbiology 08/31/16 Influenza Virus Type A Antigen - Final, Complete 08/31/16 Influenza Virus Type B Antigen - Final, Complete 08/31/16 Respiratory Virus Panel (PCR) ([facility]) - Final, Complete JANIS STEINER MD Sep 02, 2016 14:15
--- NOTE | 2016-09-02 15:51 | EDDOCDS ---
Nurse's Notes [facility] Name: Misty Shay Age: 45 yrs Sex: Male : 1970 Arrival Date: 08/30/2016 Time: 22:11 Bed Admit Hold Private MD: Blayne Mayfield Diagnosis: Acute combined systolic (congestive) and diastolic (congestive) heart failure Presentation: 08/30 22:19 Presenting complaint: Patient states: shortness of breath, leg and feet swelling, chest sls1 tightness, reports out of blood pressure medication. Reports swelling for two days, and generalized body aches, with back pain. Pt also reports has not been voiding. Aspirin was not taken prior to arrival. Adult Sepsis Screening: The patient does not have new or worsening altered mentation. Patient's respiratory rate is less than 22. Systolic blood pressure is greater than 100. Patient has a qSOFA score of 0- Negative Sepsis Screen. Suicide/Homicide risk assessment- the patient denies having any suicidal and/or homicidal ideations and does not present with any other emotional, behavioral or mental health complaints. Status: Patient is not a marketing services specialist or dependent. Transition of care: patient was not received from another setting of care. 22:19 Acuity: TAMIE Level 2 sls1 22:19 Method Of Arrival: Walkin/Carried/Asstd sls1 Triage Assessment: 22:23 General: Appears in no apparent distress, Behavior is appropriate for age, cooperative. sls1 Pain: Location: back, chest, right leg and left leg Pain currently is 6 out of 10 on a pain scale. Pt Declines HIV testing. The patient is triaged at the bedside. See Assessment in Nurses Notes section of ED record. Neurological: No deficits noted. Cardiovascular: Chest pain is described as Pain is 6 out of 10 on a pain scale. radiates Does not radiate. episodes are continuous began. Respiratory: Reports shortness of breath at rest on exertion. Historical: - Allergies: no known allergies; - Home Meds: 1. amlodipine 10 mg Oral tab 1 tab once daily 2. BuSpar 10 mg oral tab 2 times per day 3. lisinopril 40 mg Oral tab 1 tab once daily 4. omeprazole 40 mg Oral cpDR once daily 5. lorazepam 0.5 mg Oral tab nightly 6. Wellbutrin XL 150 mg Oral Tb24 1 tab once daily - PMHx: bone disease; Depression; Hypertension; Bipolar disorder; - PSHx: left wrsit repair; nerve disorder; Polypectomy throat; Right wrist repair; - Social history: Smoking status: Patient uses tobacco products, current every day smoker. No barriers to communication noted, The patient speaks fluent Mexican, Speaks appropriately for age, former etoh use. - Family history: Not pertinent. - : The pt / caregiver states he / she is not on anticoagulants. Home medication list is obtained from the patient. - Exposure Risk Screening:: None identified. Screenin:36 Screening information is obtained from the patient. Fall risk: No risks identified. ko2 Assistance ADL's: requires no assistance with activities of daily living. Abuse/DV Screen: The patient / caregiver reports he/she is: not in a situation that causes fear, pain or injury. Nutritional screening: No deficits noted. Advance Directives: Currently, there is no health care proxy. There is no active DNR order. There is no living will. There is no Power of Scuba Diving Instructor. home support is adequate. Assessment: 23:36 General: Appears in no apparent distress, comfortable, Behavior is appropriate for age, ko2 cooperative. Pain: Location: chest and back Pain currently is 6 out of 10 on a pain scale. Cardiovascular: Heart tones S1 S2 present Rhythm is regular. Respiratory: Airway is patent Respiratory effort is even, unlabored. Derm: Skin is normal. 08/31 00:30 General: Appears in no apparent distress, comfortable, Behavior is appropriate for age, ko2 cooperative. Pain: Location: back. Neurological: Level of Consciousness is awake, alert. Respiratory: Airway is patent Respiratory effort is even, unlabored. Derm: Skin is normal. 01:39 General: Appears in no apparent distress, comfortable, Behavior is appropriate for age, ko2 cooperative. Neurological: Level of Consciousness is awake, alert. Respiratory: Airway is patent Respiratory effort is even, unlabored. Derm: Skin is normal. 02:16 General: Report given to brewer nurse Rosanna Senior RN Please see [employer] for further ko2 documentation. Vital Signs: 08/30 22:13 BP 148 / 91; Pulse 89; Resp 18 S; Temp 97.2(O); Pulse Ox 97% on R/A; Weight 108.86 kg gr2 (R); Height 6 ft. 0 in. (182.88 cm) (R); Pain 4/10; 08/31 00:02 BP 141 / 92 (auto/); ko2 00:02 Pulse 86 MON; Pulse Ox 92% ; ko2 00:28 BP 144 / 80 (auto/); ko2 00:29 Pulse 86 MON; ko2 00:58 BP 123 / 69 (auto/); ko2 00:58 Pulse 84 MON; Pulse Ox 94% ; ko2 01:28 BP 122 / 71 (auto/); ko2 01:29 Pulse 84 MON; Pulse Ox 95% ; ko2 08/30 22:13 Body Mass Index 32.55 (108.86 kg, 182.88 cm) gr2 Vitals: 08/30 22:13 Log In Time: August 30, 2016 at 22:13. RN notified that patient meets Red Flag gr2 criteria. ED Course: 22:12 Patient visited by Justin Maxwell. gr2 22:12 Blayne Mayfield is Private Physician. gr2 22:12 Patient moved to Waiting gr2 22:16 Rina Trivedi,OUMAR is Primary Nurse. sls1 22:16 Patient moved to 8 sls1 22:20 Kelsy Mcdonald FNP [facility]. le 22:21 Triage Initiated sls1 22:30 Patient visited by Kelsy Mcdonald FNP. le 22:30 Patient visited by Kelsy Mcdonald FNP. le 22:34 Patient visited by Mirta Campos, CITLALLI. cln 22:34 EKG done. (by ED staff). Reviewed by Kelsy MACIAS. cln 22:54 Patient name changed from Misty\S\Giuseppe\S\Shay\S\ to Misty\S\A\S\Shay. EDMS 23:04 [facility] Payment Agreement was scanned into [employer] and attached to record. [facility] 23:35 Patient visited by Rina Trivedi RN. ko2 23:35 B-Type Natiuretic Peptide Sent. ko2 23:35 Basic Metabolic Profile Sent. ko2 23:35 CBC with Diff Sent. ko2 23:35 Cardiac Injury Profile Sent. ko2 23:35 Troponin Sent. ko2 23:35 Inserted saline lock: 20 gauge in left antecubital area and blood collected. The ko2 patient tolerated the procedure well. 23:36 Patient visited by Rina Trivedi RN. ko2 08/31 00:04 LIVER PROFILE Sent. ko2 00:10 The patient / caregiver is instructed regarding the plan of care and ED course. Cardiac ko2 monitor on. Pulse ox on. NIBP on. 00:29 Patient visited by Rina Trivedi RN. ko2 00:48 José Lopez DO is Hospitalizing Provider. le 02:23 Patient moved to Jul 03:26 Patient moved to Admit Hold ml3 06:33 EKG-ADULT Returned. EDMS 07:14 Primary Nurse role handed off by Rina Trivedi,RN js13 08:12 Chest, 2 View (pa\E\lat) Returned. EDMS 14:39 No procedures done that require assistance. me3 15:55 T-Sheet-- Draft Copy was scanned into [employer] and attached to record. gb 09/01 09:18 ECG/EKG was scanned into [employer] and attached to record. gb Administered Medications: 08/30 23:35 Drug: Aspirin 324 mg [aspirin 81 mg chewable tablet (4 tabs)] Route: PO; ko2 08/31 00:03 Drug: fentaNYL (PF) 50 mcg [fentanyl (PF) 50 mcg/mL injection solution (1 mL)] Route: ko2 IVP; Site: left antecubital; 00:46 CANCELLED (Other Intervention Used): Furosemide 40 mg IVP once le 00:53 Drug: Furosemide 80 mg [furosemide 10 mg/mL injection solution (8 mL)] Route: IVP; mb9 Site: left antecubital; Output: 00:30 Urine: 525.00ml (Voided); Total: 525.00ml. ko2 01:39 Urine: 1450.00ml (Voided); Total: 1975.00ml. ko2 Order Results: Lab Order: B-Type Natiuretic Peptide; SPEC'M 08/30/16 23:33 Test: BRAIN NATRIURETIC PEPTIDE; Value: 79.1; Range: <100; Units: PG/ML; Status: F Lab Order: Basic Metabolic Profile; SPEC'M 08/30/16 23:33 Test: GLUCOSE, FASTING; Value: 85; Range: 70-105; Units: MG/DL; Status: F Test: BLOOD UREA NITROGEN; Value: 15; Range: 7-18; Units: MG/DL; Status: F Test: CREATININE FOR GFR; Value: 1.28; Range: 0.70-1.30; Units: MG/DL; Status: F Test: GLOMERULAR FILTRATION RATE; Value: > 60.0; Range: >60; Status: F Test: SODIUM LEVEL; Value: 145; Range: 136-145; Units: MEQ/L; Status: F Test: POTASSIUM SERUM; Value: 4.0; Range: 3.5-5.1; Units: MEQ/L; Status: F Test: CHLORIDE LEVEL; Value: 112; Range: 98-107; Abnormal: Above high normal; Units: MEQ/L; Status: F Test: CARBON DIOXIDE LEVEL; Value: 25; Range: 21-32; Units: MEQ/L; Status: F Test: ANION GAP; Value: 8; Range: 8-16; Units: MEQ/L; Status: F Test: CALCIUM LEVEL; Value: 7.8; Range: 8.5-10.1; Abnormal: Below low normal; Units: MG/DL; Status: F Test Note: ; Units are mL/min/1.73 m2 Chronic Kidney Disease Staging per NKF: Stage I & II GFR >=60 Normal to Mildly Decreased Stage III GFR 30-59 Moderately Decreased Stage IV GFR 15-29 Severely Decreased Stage V GFR <15 Very Little GFR Left ESRD GFR <15 on FOREST FIRE PREVENTION SPECIALIST Lab Order: CBC with Diff; SPEC'M 08/30/16 23:33 Test: WHITE BLOOD COUNT; Value: 10.8; Range: 4.0-10.0; Abnormal: Above high normal; Units: K/mm3; Status: F Test: RED BLOOD COUNT; Value: 4.73; Range: 4.30-6.10; Units: M/mm3; Status: F Test: HEMOGLOBIN; Value: 13.4; Range: 14.0-18.0; Abnormal: Below low normal; Units: g/dl; Status: F Test: HEMATOCRIT; Value: 40.1; Range: 42.0-52.0; Abnormal: Below low normal; Units: %; Status: F Test: MEAN CORPUSCULAR VOLUME; Value: 84.9; Range: 80.0-96.0; Units: fl; Status: F Test: MEAN CORPUSCULAR HEMOGLOBIN; Value: 28.3; Range: 27.0-33.0; Units: pg; Status: F Test: MEAN CORPUSCULAR HGB CONC; Value: 33.3; Range: 32.0-36.5; Units: g/dl; Status: F Test: RED CELL DISTRIBUTION WIDTH; Value: 14.8; Range: 11.5-14.5; Abnormal: Above high normal; Units: %; Status: F Test: PLATELET COUNT, AUTOMATED; Value: 176; Range: 150-450; Units: k/mm3; Status: F Test: NEUTROPHILS %; Value: 57.0; Range: 36.0-66.0; Units: %; Status: F Test: LYMPH %; Value: 26.1; Range: 24.0-44.0; Units: %; Status: F Test: MONO %; Value: 10.9; Range: 0.0-5.0; Abnormal: Above high normal; Units: %; Status: F Test: EOS %; Value: 2.5; Range: 0.0-3.0; Units: %; Status: F Test: BASO %; Value: 0.3; Range: 0.0-1.0; Units: %; Status: F Test: LARGE UNSTAINED CELL %; Value: 3.2; Range: 0.0-4.0; Units: %; Status: F Test: NEUTROPHILS #; Value: 6.2; Range: 1.8-7.7; Units: K/mm3; Status: F Test: LYMPH #; Value: 3.2; Range: 1.5-4.5; Units: K/mm3; Status: F Test: MONO #; Value: 1.2; Range: 0.0-0.8; Abnormal: Above high normal; Units: K/mm3; Status: F Test: EOS #; Value: 0.3; Range: 0.0-0.50; Units: K/mm3; Status: F Test: BASO #; Value: 0.0; Range: 0.0-0.2; Units: K/mm3; Status: F Test: LARGE UNSTAINED CELL #; Value: 0.3; Range: 0.0-0.4; Units: K/mm3; Status: F Lab Order: Cardiac Injury Profile; SPEC'M 08/30/16 23:33 Test: CPK CREATINE PHOSPHOKINASE; Value: 581; Range: 39-308; Abnormal: Above high normal; Units: U/L; Status: F Test: CK-MB VALUE MASS; Value: 3.2; Range: 0.0-3.6; Units: NG/ML; Status: F Test: MB/CK RELATIVE INDEX; Value: 0.55; Range: < OR =4; Status: F Test Note: ; DIAGNOSIS CRITERIA MMB ng/ml Relative Index (RI) NON-AMI < or = 5 N/A STEVENS ZONE > 5 < or = 4 AMI > 5 > 4 Lab Order: Troponin; SPEC'M 08/30/16 23:33 Test: TROPONIN I; Value: < 0.02; Range: < 0.10; Units: NG/ML; Status: F Test Note: ; Troponin I Reference Interval for [place] LOCI: 99th Percentile= 0.00-0.045 ng/ml Risk Stratification: <= 0.10 ng/ml Decreased Risk for Adverse Clinical Events. 0.10-1.50 ng/ml Increased Risk for Adverse Clinical Events. Evaluation of additional criterion and/or repeat testing in 2-6 hours is suggested to rule out myocardial damage. >= 1.50 ng/ml Indicative of Myocardial Injury. Lab Order: LIVER PROFILE; SPEC'M 08/30/16 23:33 Test: AST/SGOT; Value: 84; Range: 15-37; Abnormal: Above high normal; Units: U/L; Status: F Test: ALT/SGPT; Value: 153; Range: 12-78; Abnormal: Above high normal; Units: U/L; Status: F Test: ALKALINE PHOSPHATASE; Value: 82; Range: 45-117; Units: U/L; Status: F Test: BILIRUBIN,TOTAL; Value: 0.3; Range: 0.2-1.0; Units: MG/DL; Status: F Test: BILIRUBIN,DIRECT; Value: < 0.1; Range: 0.0-0.2; Units: MG/DL; Status: F Test: TOTAL PROTEIN; Value: 7.0; Range: 6.4-8.2; Units: GM/DL; Status: F Test: ALBUMIN; Value: 3.3; Range: 3.2-5.2; Units: GM/DL; Status: F Test: ALBUMIN/GLOBULIN RATIO; Value: 0.89; Range: 1.00-1.93; Abnormal: Below low normal; Status: F Lab Order: CARDIAC MARKER PANEL; [facility] 06:07 Test: CPK CREATINE PHOSPHOKINASE; Value: 518; Range: 39-308; Abnormal: Above high normal; Units: U/L; Status: F Test: CK-MB VALUE MASS; Value: 3.1; Range: 0.0-3.6; Units: NG/ML; Status: F Test: MB/CK RELATIVE INDEX; Value: 0.59; Range: < OR =4; Status: F Test: TROPONIN I; Value: < 0.02; Range: < 0.10; Units: NG/ML; Status: F Test Note: ; DIAGNOSIS CRITERIA MMB ng/ml Relative Index (RI) NON-AMI < or = 5 N/A STEVENS ZONE > 5 < or = 4 AMI > 5 > 4 Lab Order: CARDIAC MARKER PANEL; [facility]08/31/16 11:46 Test: CPK CREATINE PHOSPHOKINASE; Value: 429; Range: 39-308; Abnormal: Above high normal; Units: U/L; Status: F Test: CK-MB VALUE MASS; Value: 2.2; Range: 0.0-3.6; Units: NG/ML; Status: F Test: MB/CK RELATIVE INDEX; Value: 0.51; Range: < OR =4; Status: F Test: TROPONIN I; Value: < 0.02; Range: < 0.10; Units: NG/ML; Status: F Test Note: ; DIAGNOSIS CRITERIA MMB ng/ml Relative Index (RI) NON-AMI < or = 5 N/A STEVENS ZONE > 5 < or = 4 AMI > 5 > 4 Lab Order: C REACTIVE PROTEIN QUANTITATIV; [facility]08/31/16 10:42 Test: C REACTIVE PROTEIN QUANTITATIV; Value: 0.79; Range: 0.00-0.30; Abnormal: Above high normal; Units: MG/DL; Status: F Lab Order: ERYTHROCYTE SEDIMENTATION RATE; 08/31/16 10:42 Test: ERYTHROCYTE SEDIMENTATION RATE; Value: 14; Range: 0-15; Units: mm/hr; Status: F Lab Order: HEPATITIS PROFILE; [facility]'M 08/31/16 10:42 Test: HEPATITIS C VIRUS NEHEMIAH INDEX; Value: > 11.0; Range: <0.8; Abnormal: Above high normal; Units: INDEX; Status: F Test: HEPATITIS B SURFACE ANTIGEN; Value: NEGATIVE; Range: NEGATIVE; Status: F Test: HEPATITIS B CORE ANTIBODY IGM; Value: NEGATIVE; Range: NEGATIVE; Status: F Test: HEPATITIS A ANTIBODY IGM; Value: NEGATIVE; Range: NEGATIVE; Status: F Test Note: ; This screening test for Hepatitis C Virus was above the 1.0 cutoff index value and will be sent for Hep C RNA OC testing to confirm or exclude active Hepatitis C Virus infection. Screening test Positive samples with high index values (>11.0) usually (95%) confirm Positive, but <5 of every 100 samples with this result might be a false positive and Hep C RNA OC testing will aid in patient management. Lab Order: LACTIC ACID LEVEL, LACTATE; SPEC'M 08/31/16 10:41 Test: LACTIC ACID SEPSIS PROTOCOL; Value: 1.3; Range: 0.4-2.0; Units: MMOL/L; Status: F Lab Order: INFLUENZA A&B RAPID ANTIGEN; SPEC'M 08/31/16 10:39 Test: INFLUENZA A RAPID SCR by ICA; Value: INFLUENZA A RESULTS NEGATIVE; Status: F Test: INFLUENZA A RAPID SCR by ICA; Value: Comments:; Status: F Test: INFLUENZA B RAPID SCR by ICA; Value: INFLUENZA B RESULTS NEGATIVE; Status: F Test Note: ; The Influenza test is a direct rapid immunoassay for the qualitative detection of Influenza viral antigen. Cell culture (Viral Culture) testing should be considered to confirm NEGATIVE results and to assist in detecting other viruses that can provide similar clinical symptoms. Please contact the lab within 24 hours ([phone] if confirmatory testing is desired. Lab Order: RESPIRATORY PANEL; SPEC'M 08/31/16 10:39 Test: RESPIRATORY PANEL; Value: RP PANEL RESULT NEGATIVE by PCR; Status: F Test: RESPIRATORY PANEL; Value: Comments:; Status: F Test Note: ; This respiratory PCR panel detects Influenza A H1, H3 and 2009 H1 viruses, Influenza B virus, Respiratory syncytial virus, Human metapneumovirus, Parainfluenza virus 1, 2, 3 and 4, Adenovirus, Rhinovirus/Enterovirus, Coronavirus HKU1, NL63, OC43 and 229E, Bordetella pertussis, Mycoplasma pneumoniae and Chlamydia pneumoniae. Lab Order: PROTHROMBIN TIME PROFILE\E\INR; SPEC'M 08/31/16 13:12 Test: PROTHROMBIN TIME; Value: 13.2; Range: 12.3-14.5; Units: SECONDS; Status: F Test: INR; Value: 0.99; Status: F Test Note: ; THERAPUTIC HUMAN INR VALUES INDICATIONS NORMAL RANGES PROPHYLAXIS/TREATMENT OF: VENOUS THROMBOSIS 2.0-3.0 PULMONARY EMBOLISM 2.0-3.0 PREVENTION OF SYSTEMIC EMBOLISM FROM: TISSUE HEART VALVES 2.0-3.0 ACUTE MYOCARDIAL INFARCTION 2.0-3.0 VALVULAR HEART DISEASE 2.0-3.0 ATRIAL FIBRILLATION 2.0-3.0 MECHANICAL VALVES(HIGH RISK) 2.5-3.5 RECURRENT MYOCARDIAL INFARCTION 2.5-3.5 Lab Order: D-DIMER QUANT; SPEC'M 08/31/16 13:12 Test: D-DIMER QUANT; Value: 352.1; Range: <500; Units: ng/ml; Status: F Radiology Order: EKG-ADULT Test: EKG-ADULT REASON FOR EXAMINATION: Chest Pain; Stationary ECG Study; [facility] - ED; ; Test Date: 2016-08-30; Pat Name: MISTY SHAY Department:; Room: -; Gender: M Winch Derrick Operator: maday; : 1970 Requested By: JAGUAR Lee; Order Number: [id number] Reading MD: Elian Lilly; Measurements; Intervals [place]; Rate: 83 P: 28; MT: 177 QRS: -24; QRSD: 102 T: 30; QT: 376; QTc: 444; Interpretive Statements; SINUS RHYTHM; BORDERLINE LEFT AXIS DEVIATION; SIMILAR TO 04/02/16; Electronically Signed On 08-31-2016 6:14:32 EST by Elian Lilly; Radiology Order: Chest, 2 View (pa\E\lat) Test: Chest, 2 View (pa\E\lat) REASON FOR EXAMINATION: Chest Pain;Shortness of Breath; Clinical: Chest pain and shortness of breath.; ; Technique: PA and lateral.; ; Comparison: 09/23/2015.; ; Findings:; Diffuse coarsened interstitial markings and very subtle hazy bilateral opacities; suggest bronchitis and multifocal pneumonia / atelectasis. Mediastinum and; cardiac silhouette stable. No effusion. No pneumothorax. Skeletal structures; intact.; ; Impression:; Findings suggest bronchitis with multifocal atelectasis/infiltrate.; ; ; Signed by; Misty Patterson MD 08/31/2016 07:53 A; Outcome: 00:48 Decision to Hospitalize by Provider. le 02:11 Discharge Assessment: Patient awake, alert and oriented x 3. No cognitive and/or ko2 functional deficits noted. Patient verbalized understanding of disposition instructions. patient administered narcotics - yes. 14:39 The following High Risk Discharge criteria are identified: None. Admitted PACU holding, me3 accompanied by nurse, on monitor, with chart. Condition: stable. 14:40 Property :Personal belongings accompany Pt. me3 14:41 No special radiology studies were completed. me3 14:51 Patient left the ED. srm Signatures: Dispatcher [employer] EDMN Cece Hatch, RN OUMAR Hassan, Lois Elaine, RN Dorie Jacob, Reg Reg gb Amanda, MarikaKiaraStephanie, Grease Packer Unit ml3 Genesis Trujillo,MESMERIST MESMERIST me3 Kelsy Mcdonald, RETROFIT INSTALLER RETROFIT INSTALLERBrigida Gavin, RN RN sls1 Breanna KumarRN RN js13 Justin Maxwell gr2 Rina TrivediRN RN emeterio2 Juanita Trejo Michael,RN RN mb9 Mirta Capmos, CITLALLI REGULATORY LAW SPECIALIST cln Corrections: (The following items were deleted from the chart) 08/30 23:58 23:35 LIVER PROFILE+LAB sent. enedelia EDMN 08/31 02:17 02:16 General: Report given to brewer nurse Rosanna Senior RN. enedelia mcdaniels Chart Complete MTDD
--- NOTE | 2016-09-02 15:51 | EDDOCDS ---
Physician Documentation [facility] Name: Sai Hearn Age: 45 yrs Sex: Male : 1970 Arrival Date: 08/30/2016 Time: 22:11 Bed Admit Hold Private MD: Blayne Mayfield Disposition: 08/31/16 00:48 Hospitalization ordered by José Lopez for Inpatient Admission. Preliminary diagnosis is Acute combined systolic (congestive) and diastolic (congestive) heart failure. - Bed requested for Admit. - Status is Inpatient Admission. srm - Condition is Stable. - Problem is new. - Symptoms are unchanged. Historical: - Allergies: no known allergies; - Home Meds: 1. amlodipine 10 mg Oral tab 1 tab once daily 2. BuSpar 10 mg oral tab 2 times per day 3. lisinopril 40 mg Oral tab 1 tab once daily 4. omeprazole 40 mg Oral cpDR once daily 5. lorazepam 0.5 mg Oral tab nightly 6. Wellbutrin XL 150 mg Oral Tb24 1 tab once daily - PMHx: bone disease; Depression; Hypertension; Bipolar disorder; - PSHx: left wrsit repair; nerve disorder; Polypectomy throat; Right wrist repair; - Social history: Smoking status: Patient uses tobacco products, current every day smoker. No barriers to communication noted, The patient speaks fluent Grenadian, Speaks appropriately for age, former etoh use. - Family history: Not pertinent. - : The pt / caregiver states he / she is not on anticoagulants. Home medication list is obtained from the patient. - Exposure Risk Screening:: None identified. Vital Signs: 08/30 22:13 BP 148 / 91; Pulse 89; Resp 18 S; Temp 97.2(O); Pulse Ox 97% on R/A; Weight 108.86 kg / gr2 240 lbs (R); Height 6 ft. 0 in. (182.88 cm) (R); Pain 4/10; 08/31 00:02 BP 141 / 92 (auto/); ko2 00:02 Pulse 86 MON; Pulse Ox 92% ; ko2 00:28 BP 144 / 80 (auto/); ko2 00:29 Pulse 86 MON; ko2 00:58 BP 123 / 69 (auto/); ko2 00:58 Pulse 84 MON; Pulse Ox 94% ; ko2 01:28 BP 122 / 71 (auto/); ko2 01:29 Pulse 84 MON; Pulse Ox 95% ; ko2 08/30 22:13 Body Mass Index 32.55 (108.86 kg, 182.88 cm) gr2 MDM: 08/30 22:17 ECG WITH READING ER PHYS+CARDIAG ordered. EDMS 22:21 Aspirin Chewable Tablet 324 mg PO once ordered. le 22:21 Supervisor Sunglasses/Pulse Ox/q 30 min VS ordered. le 22:21 IV Saline Lock ordered. le 22:21 Rhythm Strip to chart ordered. le 22:21 Undress patient appropriately for examination ordered. le 22:23 Chest, 2 View (pa\E\lat) Ordered. EDMS 22:23 B-Type Natiuretic Peptide Ordered. EDMS 22:23 Basic Metabolic Profile Ordered. EDMS 22:23 CBC with Diff Ordered. EDMS 22:23 Cardiac Injury Profile Ordered. EDMS 22:23 Troponin Ordered. EDMS 22:52 Financial registration complete. [facility] 23:04 [facility] Payment Agreement was scanned into [employer] and attached to record. [facility] 23:56 fentaNYL (PF) 50 mcg IVP once ordered. le 23:56 CBC with Diff Reviewed. le 23:58 LIVER PROFILE Ordered. EDMS 08/31 00:05 B-Type Natiuretic Peptide Reviewed. le 00:17 Basic Metabolic Profile Reviewed. le 00:17 LIVER PROFILE Reviewed. le 00:17 Troponin Reviewed. le 00:25 Bladder Scan please ordered. le 00:25 Basic Metabolic Profile Reviewed. le 00:25 Cardiac Injury Profile Reviewed. le 00:25 LIVER PROFILE Reviewed. le 00:25 Troponin Reviewed. le 00:46 Furosemide 80 mg IVP once ordered. le 00:47 BED REQUEST+ADM ordered. EDMS 01:52 PHYSICAL THERAPY EVAL & TREAT ordered. EDMS 01:53 Admission / Observation Status ordered. EDMS 01:53 ECHOCARD,DOPPLER/COLOR FLOW ordered. EDMS 01:53 CARDIAC MARKER PANEL Ordered. EDMS 01:54 CARDIAC MARKER PANEL Ordered. EDMS 02:06 2 GRAM SODIUM DIET ordered. EDMS 10:21 C REACTIVE PROTEIN QUANTITATIV Ordered. EDMS 10:21 ERYTHROCYTE SEDIMENTATION RATE Ordered. EDMS 10:22 HEPATITIS PROFILE Ordered. EDMS 10:22 LACTIC ACID LEVEL, LACTATE Ordered. EDMS 10:22 INFLUENZA A&B RAPID ANTIGEN Ordered. EDMS 10:22 RESPIRATORY PANEL Ordered. EDMS 10:22 Abdomen, limited US Ordered. EDMS 12:10 HCV RNA OC QUALITATIVE Ordered. EDMS 12:51 PROTHROMBIN TIME PROFILE\E\INR Ordered. EDMS 12:55 D-DIMER QUANT Ordered. EDMS 15:55 T-Sheet-- Draft Copy was scanned into [employer] and attached to record. 09/01 09:18 ECG/EKG was scanned into [employer] and attached to record. gb Administered Medications: 08/30 23:35 Drug: Aspirin 324 mg [aspirin 81 mg chewable tablet (4 tabs)] Route: PO; ko2 08/31 00:03 Drug: fentaNYL (PF) 50 mcg [fentanyl (PF) 50 mcg/mL injection solution (1 mL)] Route: ko2 IVP; Site: left antecubital; 00:46 CANCELLED (Other Intervention Used): Furosemide 40 mg IVP once le 00:53 Drug: Furosemide 80 mg [furosemide 10 mg/mL injection solution (8 mL)] Route: IVP; mb9 Site: left antecubital; Signatures: Dispatcher [employer] EDCece Self, RN RN [facility] Institutek[facility], Dorie, Reg Reg gb Kelsy Mcdonald, DRAFTSPERSON DRAFTSPERSON Brigida Monroe RN RN sls1 Rina TrivediRN RN ko2 Juanita Trejo Jesus Penn RN mb9 The chart was reviewed and I authenticate all verbal orders and agree with the evaluation and treatment provided.Corrections: (The following items were deleted from the chart) 08/30 23:58 22:39 LIVER PROFILE+LAB ordered. EDMS EDMS 08/31 00:46 00:38 Furosemide 40 mg IVP once ordered. le le 00:46 00:46 Furosemide 40 mg IVP once ordered. le le 02:05 01:53 2 GRAM SODIUM DIET ordered. EDMS EDMS 12:55 12:45 D-DIMER QUANT ordered. EDCA EDMS Attachments: 08/30 23:04 [facility] Payment Agreement [facility] 08/31 15:55 T-Sheet-- Draft Copy 09/01 09:18 ECG/EKG Chart Complete MTDD
--- NOTE | 2016-09-02 15:51 | EDDOCDS ---
Physician Documentation [facility] Name: Sai Hearn Age: 45 yrs Sex: Male : 1970 Arrival Date: 08/30/2016 Time: 22:11 Bed Admit Hold Private MD: Blayne Mayfield Disposition: 08/31/16 00:48 Hospitalization ordered by José Lopez for Inpatient Admission. Preliminary diagnosis is Acute combined systolic (congestive) and diastolic (congestive) heart failure. - Bed requested for Admit. - Status is Inpatient Admission. srm - Condition is Stable. - Problem is new. - Symptoms are unchanged. Historical: - Allergies: no known allergies; - Home Meds: 1. amlodipine 10 mg Oral tab 1 tab once daily 2. BuSpar 10 mg oral tab 2 times per day 3. lisinopril 40 mg Oral tab 1 tab once daily 4. omeprazole 40 mg Oral cpDR once daily 5. lorazepam 0.5 mg Oral tab nightly 6. Wellbutrin XL 150 mg Oral Tb24 1 tab once daily - PMHx: bone disease; Depression; Hypertension; Bipolar disorder; - PSHx: left wrsit repair; nerve disorder; Polypectomy throat; Right wrist repair; - Social history: Smoking status: Patient uses tobacco products, current every day smoker. No barriers to communication noted, The patient speaks fluent Hungarian, Speaks appropriately for age, former etoh use. - Family history: Not pertinent. - : The pt / caregiver states he / she is not on anticoagulants. Home medication list is obtained from the patient. - Exposure Risk Screening:: None identified. Vital Signs: 08/30 22:13 BP 148 / 91; Pulse 89; Resp 18 S; Temp 97.2(O); Pulse Ox 97% on R/A; Weight 108.86 kg / gr2 240 lbs (R); Height 6 ft. 0 in. (182.88 cm) (R); Pain 4/10; 08/31 00:02 BP 141 / 92 (auto/); ko2 00:02 Pulse 86 MON; Pulse Ox 92% ; ko2 00:28 BP 144 / 80 (auto/); ko2 00:29 Pulse 86 MON; ko2 00:58 BP 123 / 69 (auto/); ko2 00:58 Pulse 84 MON; Pulse Ox 94% ; ko2 01:28 BP 122 / 71 (auto/); ko2 01:29 Pulse 84 MON; Pulse Ox 95% ; ko2 08/30 22:13 Body Mass Index 32.55 (108.86 kg, 182.88 cm) gr2 MDM: 08/30 22:17 ECG WITH READING ER PHYS+CARDIAG ordered. EDMS 22:21 Aspirin Chewable Tablet 324 mg PO once ordered. le 22:21 Net Repairer/Pulse Ox/q 30 min VS ordered. le 22:21 IV Saline Lock ordered. le 22:21 Rhythm Strip to chart ordered. le 22:21 Undress patient appropriately for examination ordered. le 22:23 Chest, 2 View (pa\E\lat) Ordered. EDMS 22:23 B-Type Natiuretic Peptide Ordered. EDMS 22:23 Basic Metabolic Profile Ordered. EDMS 22:23 CBC with Diff Ordered. EDMS 22:23 Cardiac Injury Profile Ordered. EDMS 22:23 Troponin Ordered. EDMS 22:52 Financial registration complete. [facility] 23:04 [facility] Payment Agreement was scanned into [employer] and attached to record. [facility] 23:56 fentaNYL (PF) 50 mcg IVP once ordered. le 23:56 CBC with Diff Reviewed. le 23:58 LIVER PROFILE Ordered. EDMS 08/31 00:05 B-Type Natiuretic Peptide Reviewed. le 00:17 Basic Metabolic Profile Reviewed. le 00:17 LIVER PROFILE Reviewed. le 00:17 Troponin Reviewed. le 00:25 Bladder Scan please ordered. le 00:25 Basic Metabolic Profile Reviewed. le 00:25 Cardiac Injury Profile Reviewed. le 00:25 LIVER PROFILE Reviewed. le 00:25 Troponin Reviewed. le 00:46 Furosemide 80 mg IVP once ordered. le 00:47 BED REQUEST+ADM ordered. EDMS 01:52 PHYSICAL THERAPY EVAL & TREAT ordered. EDMS 01:53 Admission / Observation Status ordered. EDMS 01:53 ECHOCARD,DOPPLER/COLOR FLOW ordered. EDMS 01:53 CARDIAC MARKER PANEL Ordered. EDMS 01:54 CARDIAC MARKER PANEL Ordered. EDMS 02:06 2 GRAM SODIUM DIET ordered. EDMS 10:21 C REACTIVE PROTEIN QUANTITATIV Ordered. EDMS 10:21 ERYTHROCYTE SEDIMENTATION RATE Ordered. EDMS 10:22 HEPATITIS PROFILE Ordered. EDMS 10:22 LACTIC ACID LEVEL, LACTATE Ordered. EDMS 10:22 INFLUENZA A&B RAPID ANTIGEN Ordered. EDMS 10:22 RESPIRATORY PANEL Ordered. EDMS 10:22 Abdomen, limited US Ordered. EDMS 12:10 HCV RNA OC QUALITATIVE Ordered. EDMS 12:51 PROTHROMBIN TIME PROFILE\E\INR Ordered. EDMS 12:55 D-DIMER QUANT Ordered. EDMS 15:55 T-Sheet-- Draft Copy was scanned into [employer] and attached to record. 09/01 09:18 ECG/EKG was scanned into [employer] and attached to record. gb Administered Medications: 08/30 23:35 Drug: Aspirin 324 mg [aspirin 81 mg chewable tablet (4 tabs)] Route: PO; ko2 08/31 00:03 Drug: fentaNYL (PF) 50 mcg [fentanyl (PF) 50 mcg/mL injection solution (1 mL)] Route: ko2 IVP; Site: left antecubital; 00:46 CANCELLED (Other Intervention Used): Furosemide 40 mg IVP once le 00:53 Drug: Furosemide 80 mg [furosemide 10 mg/mL injection solution (8 mL)] Route: IVP; mb9 Site: left antecubital; Signatures: Dispatcher [employer] EDCece Self, RN RN [facility], Dorie, Reg Reg gb Kelsy Mcdonald, APPLICATIONS SALES CONSULTANT APPLICATIONS SALES CONSULTANT Brigida Monroe RN RN sls1 Rina TrivediRN RN ko2 Juanita Trejo Jesus Penn RN mb9 The chart was reviewed and I authenticate all verbal orders and agree with the evaluation and treatment provided.Corrections: (The following items were deleted from the chart) 08/30 23:58 22:39 LIVER PROFILE+LAB ordered. EDMS EDMS 08/31 00:46 00:38 Furosemide 40 mg IVP once ordered. le le 00:46 00:46 Furosemide 40 mg IVP once ordered. le le 02:05 01:53 2 GRAM SODIUM DIET ordered. EDMS EDMS 12:55 12:45 D-DIMER QUANT ordered. EDKS EDMS Attachments: 08/30 23:04 [facility] Payment Agreement [facility] 08/31 15:55 T-Sheet-- Draft Copy 09/01 09:18 ECG/EKG Chart Complete MTDD
[2016-09-02] MEDS: LORazepam 0.5 MG TAB PO PRN (20:09)
[2016-09-02 22:00] VITALS: BP 130/78
[2016-09-03] MEDS: PERCOCET 5MG/325MG TAB PO PRN (05:17)
[2016-09-03 05:58] LABS: MEAN CORPUSCULAR HEMOGLOBIN 28.2 pg (27.0-33.0); MEAN CORPUSCULAR HGB CONC 32.9 g/dl (32.0-36.5); MEAN CORPUSCULAR VOLUME 85.8 fl (80.0-96.0); RED CELL DISTRIBUTION WIDTH 14.9 % (11.5-14.5); WHITE BLOOD COUNT 7.8 K/mm3 (4.0-10.0)
[2016-09-03 06:00] VITALS: BP 154/88
[2016-09-03 06:18] LABS: ANION GAP 9 MEQ/L (8-16); BLOOD UREA NITROGEN 26 MG/DL (7-18); CALCIUM LEVEL 8.6 MG/DL (8.5-10.1); CARBON DIOXIDE LEVEL 28 MEQ/L (21-32); CHLORIDE LEVEL 103 MEQ/L (98-107); CREATININE FOR GFR 1.15 MG/DL (0.70-1.30); GLOMERULAR FILTRATION RATE > 60.0 (>60); GLUCOSE, FASTING 109 MG/DL (70-105); POTASSIUM SERUM 4.3 MEQ/L (3.5-5.1); SODIUM LEVEL 140 MEQ/L (136-145)
--- NOTE | 2016-09-03 06:44 | ECHO ---
DATE OF PROCEDURE: 09/01/2016 DATE OF : 1970 AGE: 45 REFERRING PROVIDER: Dr. Lopez. PATIENT LOCATION: Room 4201. REASON FOR ECHOCARDIOGRAM: Heart failure, unspecified. 2D MEASUREMENTS: IVS: 1.8 cm LV: 4.1 cm LVPW: cm LA: 3.7 cm Aorta: 3.7 cm IVC: 1.46 cm DOPPLER MEASUREMENTS: Peak velocity across the aortic valve: 1.2 m/s Peak velocity across the LVOT: 0.70 m/s Mitral E: 0.46 Mitral A: 0.64 Ratio 0.7 2D COMMENTS: 1. Normal left ventricular size and systolic function with probably moderately increased left ventricular wall thickness. Left ventricular systolic function is normal, estimated at 60% to 65%. 2. Normal left atrium. Normal right atrium and right ventricle. 3. The atrial septum appeared to be normal without evidence of defect or shunt. 4. Borderline enlarged aortic root at 3.7 cm. 5. No pericardial effusion seen. 6. Mildly calcified aortic valve with normal leaflet excursion. Normal mitral valve, tricuspid valve and pulmonic valve. 7. The proximal pulmonary artery branches were not well visualized. 8. The inferior vena cava was normal in size, central venous pressure is most likely normal. DOPPLER: No significant valvular abnormalities detected but trace tricuspid regurgitation. The estimated pulmonary artery systolic pressure is normal. IMPRESSION: 1. Normal global left ventricular systolic function with probably moderate concentric left ventricular hypertrophy. There are some features of left ventricular diastolic dysfunction, grade 1. 2. Aortic valve sclerosis without stenosis or aortic regurgitation. 3. Trace tricuspid regurgitation.
[2016-09-03] MEDS ORDERED: FURO40TA2 PO (07:10)
[2016-09-03] MEDS: busPIRone 10 MG TAB PO SCH (08:13)
[2016-09-03] MEDS: buPROPion **XL** TABLET 150MG (WELLBUTRIN XL) PO SCH (08:13)
[2016-09-03] MEDS: OMEPRAZOLE 20 MG CAP PO SCH (08:13)
[2016-09-03] MEDS: FUROSEMIDE 40 MG TAB PO SCH (08:14)
[2016-09-03 08:15] VITALS: BP 130/86
[2016-09-03] MEDS: amLODIPine 5 MG TAB PO SCH (08:15)
[2016-09-03] MEDS: LISINOPRIL 40 MG TAB PO SCH (08:16)
[2016-09-03] MEDS: ENOXAPARIN 40 MG/0.4 ML SYRINGE (J1650) SC SCH (08:18)
[2016-09-03] MEDS ORDERED: OXYC1TAB23 PO (08:59)
--- NOTE | 2016-09-03 14:45 | DS.PDOC ---
Discharge Summary General Date of Admission Aug 31, 2016 at 01:44 Date of Discharge Sep 03, 2016 at 10:24 Discharge Summary PROCEDURES PERFORMED DURING STAY: None. COMPLICATIONS/CHIEF COMPLAINT: Chest Pain, Chf ADMISSION DIAGNOSES: 1. . Decompensated congestive heart failure 2. . Hypertension 3. . Chronic back pain DISCHARGE DIAGNOSES: 1. . Diastolic congestive heart failure 2. . Hypertension 3. . Chronic back pain HISTORY OF PRESENT ILLNESS: 45-year-old male with past medical history of hypertension, GERD, osteoarthritis , chronic low back pain, depression/anxiety, and history of hepatitis C presented to the ER with a chief complaint of increasing lower extremity edema, abdominal distention, shortness of breath, dyspnea on exertion, paroxysmal nocturnal dyspnea, and orthopnea for the past 2 weeks. The patient states that he has been having a worsening of this over the last 1-2 years. The patient denied any chest pain, palpitations, lightheadedness/dizziness, or any history of heart disease. In the ER, the patient was found to have generalized anasarca. The patient was started on IV Lasix in an effort to obtain a negative fluid balance. During the patient's stay in the hospital here, the patient did achieve nearly 5 L of net negative fluid loss over the first 48 hours of his hospitalization. A 2-D echocardiogram was performed and this revealed a normal ejection fraction, with a stage I diastolic dysfunction. An EKG was without any acute changes, and troponin levels were also within normal limits. The patient has been transitioned to 40 mg of by mouth Lasix daily, and the patient has remained euvolemic on this regimen. The patient will be discharged on a dose of 40 mg of Lasix daily. I've advised the patient that he should discontinue this medication if he starts to feel lightheaded/dizzy, with increased muscle cramping, and overall dehydration. I have discussed the adverse effects of this medication, and advised the patient to follow-up with his primary care physician within 7 days for further monitoring of his clinical condition and electrolytes. DISCHARGE MEDICATIONS: Please see below. ALLERGIES: Please see below. PHYSICAL EXAMINATION ON DISCHARGE: VITAL SIGNS: Please see below. General Exam: Positive: Alert, Cooperative, No Acute Distress ENT Exam: Positive: Atraumatic, Mucous membr. moist/pink Neck Exam: Negative: JVD Chest Exam: Positive: Clear to auscultation, Normal air movement Heart Exam: Positive: Normal S1, Normal S2, Rate Normal Abdomen Exam: Positive: Soft, Negative: Tenderness Extremity Exam: Negative: Swelling, Tenderness LABORATORY DATA: Please see below. VTE Prophylaxis ordered?: Yes DISCHARGE CONDITION: Stable. DISPOSITION: .Discharged Home ACTIVITY: . As tolerated DIET: . 2 g low sodium diet, fluid restriction ITEMS TO FOLLOWUP ON OUTPATIENT: 1. . Follow-up with primary care physician within one week 2. . BMP within 1 week 3. . Patient advised to return to the ER if symptoms return or worsen TIME SPENT ON DISCHARGE: Greater than 30 minutes. Vital Signs/I&Os Vital Signs Date Time Temp Pulse Resp B/P Pulse Ox O2 Delivery O2 Flow Rate FiO2 09/03/16 10:08 Room Air 09/03/16 08:15 85 130/86 09/03/16 06:00 97.0 19 97 I&O- Last 24 Hours up to 6 AM 09/03/16 06:00 Intake Total 1500 ml Output Total 1350 ml Balance 150 ml Laboratory Data Labs 24H Laboratory Tests 2 09/03/16 05:12: Anion Gap 9, Blood Urea Nitrogen 26H, Creatinine 1.15, Sodium Level 140, Potassium Level 4.3, Chloride Level 103, Carbon Dioxide Level 28, Calcium Level 8.6, Glomerular Filtration Rate > 60.0 CBC/BMP Laboratory Tests 09/03/16 05:12 Calcium Level 8.6, Red Blood Count 5.29, Mean Corpuscular Volume 85.8, Mean Corpuscular Hemoglobin 28.2, Mean Corpuscular Hemoglobin Concent 32.9, Red Cell Distribution Width 14.9 H Microbiology Microbiology 08/31/16 Influenza Virus Type A Antigen - Final, Complete 08/31/16 Influenza Virus Type B Antigen - Final, Complete 08/31/16 Respiratory Virus Panel (PCR) (RICHARD) - Final, Complete Medications Scheduled Amlodipine Besylate (Norvasc) 5 Mg Tab 5 MG PO DAILY Atorvastatin Calcium (Atorvastatin Calcium) 40 Mg Tab 40 MG PO DAILY Bupropion HCl (Wellbutrin Xl) 150 Mg Tab 150 MG PO DAILY Buspirone HCl (Buspirone HCl) 30 Mg Tab 30 MG PO BID Fluoxetine HCl (Fluoxetine HCl) 60 Mg Tab 60 MG PO DAILY Furosemide (Furosemide) 40 Mg Tab 40 MG PO DAILY Lisinopril (Lisinopril) 40 Mg Tab 40 MG PO DAILY Olanzapine (Olanzapine) 10 Mg Tab 10 MG PO QHS Omeprazole (Omeprazole) 40 Mg Cap 40 MG PO DAILY Scheduled PRN Oxycodone/Acetaminophen (Oxycodone/Acetaminophen 5-325 mg) 1 Tab Tab 1 TAB PO BIDP PRN PRN PAIN SCALE 6-10 Allergies Coded Allergies: Acetaminophen (Verified Allergy, Unknown, 10/18/12) Codeine (Verified Allergy, Unknown, 10/18/12) JANIS STEINER MD Sep 03, 2016 14:45
== END 2016-09-03 10:24 | disposition home or self-care (01) | DRG 293 ==
LOC: M ED 22:11 → M ED INP 08-31 01:44 → M MSPAV 08-31 15:40 → M OR 08-31 15:40 → M ED INP 08-31 15:40 → M OR 09-01 11:06 → M MSPAV 09-01 11:06 → UNDODISIN 09-03 10:24
PROVIDERS: ADMIT Hospitalist; ATTEND Internal Medicine
DX: I11.0 Hypertensive heart disease with heart failure (principal); F31.9 Bipolar disorder, unspecified; I50.33 Acute on chronic diastolic (congestive) heart failure; K21.9 Gastro-esophageal reflux disease without esophagitis; M19.90 Unspecified osteoarthritis, unspecified site; M54.5 Low back pain; F17.210 Nicotine dependence, cigarettes, uncomplicated; B18.2 Chronic viral hepatitis C; Z79.899 Other long term (current) drug therapy; F41.9 Anxiety disorder, unspecified; Z91.19 Patient's noncompliance with other medical treatment and regimen; M43.12 Spondylolisthesis, cervical region

== ENCOUNTER 2016-09-14 16:32 | Emergency (ER) | payer MEDICARE, MEDICAID ==
[~2016-09-14 16:32] MED LIST changes: +ATOR40TA PO; +BUSP30TA PO; +FLUO60TA PO; +FURO40TA2 PO; +OLAN10TA2 PO; +OXYC1TAB23 PO; +WELLTAB38 PO
[2016-09-14] MEDS ORDERED: NS 1,000 ML IV ONE (16:45)
[2016-09-14] MEDS ORDERED: ONDANSETRON 4MG/2ML VIAL (J2405) IV ONE (16:45)
[2016-09-14 17:00] LABS: BASO # 0.1 K/mm3 (0.0-0.2); BASO % 0.6 % (0.0-1.0); EOS # 0.2 K/mm3 (0.0-0.50); EOS % 2.2 % (0.0-3.0); LARGE UNSTAINED CELL # 0.7 K/mm3 (0.0-0.4); LARGE UNSTAINED CELL % 6.4 % (0.0-4.0); LYMPH # 4.2 K/mm3 (1.5-4.5); LYMPH % 36.4 % (24.0-44.0); MEAN CORPUSCULAR HEMOGLOBIN 27.9 pg (27.0-33.0); MEAN CORPUSCULAR HGB CONC 32.9 g/dl (32.0-36.5); MONO # 0.8 K/mm3 (0.0-0.8); MONO % 6.9 % (0.0-5.0); NEUTROPHILS # 5.4 K/mm3 (1.8-7.7); NEUTROPHILS % 47.5 % (36.0-66.0); PLATELET COUNT, AUTOMATED 235 k/mm3 (150-450); RED CELL DISTRIBUTION WIDTH 14.6 % (11.5-14.5); WHITE BLOOD COUNT 11.4 K/mm3 (4.0-10.0)
[2016-09-14 17:38] LABS: ALBUMIN 3.7 GM/DL (3.2-5.2); ALBUMIN/GLOBULIN RATIO 0.93 (1.00-1.93); ALKALINE PHOSPHATASE 93 U/L (45-117); ALT/SGPT 181 U/L (12-78); ANION GAP 12 MEQ/L (8-16); AST/SGOT 119 U/L (15-37); BILIRUBIN,DIRECT 0.2 MG/DL (0.0-0.2); BILIRUBIN,TOTAL 0.5 MG/DL (0.2-1.0); BLOOD UREA NITROGEN 15 MG/DL (7-18); CALCIUM LEVEL 8.6 MG/DL (8.5-10.1); CARBON DIOXIDE LEVEL 24 MEQ/L (21-32); CHLORIDE LEVEL 102 MEQ/L (98-107); CREATININE FOR GFR 1.35 MG/DL (0.70-1.30); GLOMERULAR FILTRATION RATE > 60.0 (>60); GLUCOSE, FASTING 180 MG/DL (70-105); POTASSIUM SERUM 3.6 MEQ/L (3.5-5.1); SODIUM LEVEL 138 MEQ/L (136-145); TOTAL PROTEIN 7.7 GM/DL (6.4-8.2)
--- NOTE | 2016-09-14 17:39 | REP ---
Portable chest x-ray: Single view: History: Drug overdose. Comparison study: 08/30/2016. Findings: EKG monitoring electrodes overlie the chest. A fusion plate is seen in the lower cervical spine at the upper margin of the field of view. The lungs are symmetrically aerated. No infiltrate is seen. Heart size is normal. Pulmonary vasculature is not increased. Pleural angles are sharp. Impression: No active cardiopulmonary disease seen. Signed by Ron Kim MD 09/14/2016 07:46 P
[2016-09-14 19:12] VITALS: BP 142/88
--- NOTE | 2016-09-14 21:00 | ECGEPIP ---
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
== END 2016-09-14 20:02 | disposition left against medical advice (07) ==
LOC: M ED 19:24
DX: T50.7X Poisoning by, adverse effect of and underdosing of analeptics and opioid receptor antagonists (principal); R40.20 Unspecified coma; X58.XXXA Exposure to other specified factors, initial encounter; Y92.89 Other specified places as the place of occurrence of the external cause; Y93.89 Activity, other specified; Y99.8 Other external cause status; F19.10 Other psychoactive substance abuse, uncomplicated; F17.200 Nicotine dependence, unspecified, uncomplicated
CPT/HCPCS: 36415; 71010; 80048; 80076; 82550; 83605; 84443; 85025; 93005; 93041; 94760; 96374; 99285; G0480; J2405

== ENCOUNTER → 2016-12-28 | Outpatient (CLI) | payer MEDICARE, MEDICAID ==
[2016-12-28 10:32] LABS: BASO # 0.1 K/mm3 (0.0-0.2); BASO % 1.1 % (0.0-1.0); EOS # 0.2 K/mm3 (0.0-0.50); LARGE UNSTAINED CELL # 0.3 K/mm3 (0.0-0.4); LARGE UNSTAINED CELL % 3.4 % (0.0-4.0); LYMPH # 2.4 K/mm3 (1.5-4.5); LYMPH % 28.6 % (24.0-44.0); MEAN CORPUSCULAR HEMOGLOBIN 29.6 pg (27.0-33.0); MEAN CORPUSCULAR HGB CONC 34.2 g/dl (32.0-36.5); MEAN CORPUSCULAR VOLUME 86.5 fl (80.0-96.0); MONO # 0.9 K/mm3 (0.0-0.8); NEUTROPHILS # 4.5 K/mm3 (1.8-7.7); PLATELET COUNT, AUTOMATED 142 k/mm3 (150-450); RED CELL DISTRIBUTION WIDTH 13.3 % (11.5-14.5); WHITE BLOOD COUNT 8.3 K/mm3 (4.0-10.0)
[2016-12-28 11:37] LABS: ALBUMIN 3.8 GM/DL (3.2-5.2); ALBUMIN/GLOBULIN RATIO 1.09 (1.00-1.93); ALKALINE PHOSPHATASE 79 U/L (45-117); ALT/SGPT 101 U/L (12-78); ANION GAP 7 MEQ/L (8-16); AST/SGOT 43 U/L (15-37); BILIRUBIN,TOTAL 0.3 MG/DL (0.2-1.0); BLOOD UREA NITROGEN 22 MG/DL (7-18); CALCIUM LEVEL 8.9 MG/DL (8.5-10.1); CARBON DIOXIDE LEVEL 25 MEQ/L (21-32); CHLORIDE LEVEL 108 MEQ/L (98-107); CHOLESTEROL LEVEL 109 MG/DL (<200); CREATININE FOR GFR 1.08 MG/DL (0.70-1.30); GLOMERULAR FILTRATION RATE > 60.0 (>60); GLUCOSE, FASTING 107 MG/DL (70-105); POTASSIUM SERUM 4.2 MEQ/L (3.5-5.1); SODIUM LEVEL 140 MEQ/L (136-145); TOTAL PROTEIN 7.3 GM/DL (6.4-8.2); TRIGLYCERIDES LEVEL 73 MG/DL (<150)
== END ==
LOC: M WUC 08:26
PROVIDERS: ATTEND Family Medicine Addiction Medicine
DX: B18.2 Chronic viral hepatitis C (principal)

== ENCOUNTER → 2017-01-28 | Outpatient (REF) | payer MEDICARE, MEDICAID ==
[~2017-01-28] MED LIST changes: -ATOR40TA PO; +ATOR40TA75 PO; -AUGM875T27 PO; +AUGM875T28 PO
== END ==
LOC: M LAB REF 13:37
PROVIDERS: ATTEND Family Medicine Addiction Medicine
DX: N52.8 Other male erectile dysfunction (principal)

== ENCOUNTER → 2017-03-02 | Outpatient (CLI) | payer MEDICARE, MEDICAID ==
[2017-03-02 09:51] LABS: BASO % 0.4 % (0.0-1.0); EOS # 0.3 K/mm3 (0.0-0.50); EOS % 2.7 % (0.0-3.0); LARGE UNSTAINED CELL # 0.2 K/mm3 (0.0-0.4); LARGE UNSTAINED CELL % 2.2 % (0.0-4.0); LYMPH # 2.7 K/mm3 (1.5-4.5); LYMPH % 26.5 % (24.0-44.0); MEAN CORPUSCULAR HEMOGLOBIN 29.2 pg (27.0-33.0); MEAN CORPUSCULAR VOLUME 88.4 fl (80.0-96.0); MONO # 0.8 K/mm3 (0.0-0.8); MONO % 8.6 % (0.0-5.0); NEUTROPHILS # 5.7 K/mm3 (1.8-7.7); NEUTROPHILS % 59.6 % (36.0-66.0); PLATELET COUNT, AUTOMATED 192 k/mm3 (150-450); RED CELL DISTRIBUTION WIDTH 13.8 % (11.5-14.5); WHITE BLOOD COUNT 9.6 K/mm3 (4.0-10.0)
[2017-03-03 08:59] LABS: HEPATITIS B SURFACE ANTIBODY NEGATIVE (POSITIVE)
[2017-03-04 14:13] LABS: ALT 88 IU/L (0-55); GGT 38 IU/L (0-65); HAPTOGLOBIN 164 mg/dL (34-200); HEPATITIS C QUANTITATION 9211570 IU/mL (.); NECROINFLAM SCORE 0.51 (0.00-0.17); NECROINFLAMM GRADE A1-A2 (.); TOTAL BILIRUBIN 0.1 mg/dL (0.0-1.2)
[2017-03-12 14:15] LABS: HCV GENOTYPE REFLEX NS5QA Indicated (.); HEPATITIS C QUANTITATION 5839090 IU/mL (.)
== END ==
LOC: M WUC 08:40
PROVIDERS: ATTEND Internal Medicine Infectious Disease
DX: B18.2 Chronic viral hepatitis C (principal)

== ENCOUNTER → 2017-05-05 | Outpatient (REF) | payer MEDICARE, MEDICAID ==
[2017-05-05 12:38] LABS: ALBUMIN 4.1 GM/DL (3.2-5.2); BILIRUBIN,DIRECT 0.1 MG/DL (0.0-0.2); BILIRUBIN,TOTAL 0.5 MG/DL (0.2-1.0); TOTAL PROTEIN 8.2 GM/DL (6.4-8.2)
[2017-05-07 14:36] LABS: HEPATITIS C QUANTITATION HCV Not Detected IU/mL (.)
== END ==
LOC: M SFHCPLAZ 09:21
PROVIDERS: ATTEND Internal Medicine Infectious Disease
DX: B18.2 Chronic viral hepatitis C (principal); Z23 Encounter for immunization
CPT/HCPCS: 36415; 80076; 87522; 90471; 90686; 90746; G0008

== ENCOUNTER → 2017-07-01 | Outpatient (REF) | payer MEDICARE, MEDICAID ==
[2017-07-01 12:41] LABS: ALBUMIN 3.8 GM/DL (3.2-5.2); ALBUMIN/GLOBULIN RATIO 0.86 (1.00-1.93); ALKALINE PHOSPHATASE 92 U/L (45-117); ALT/SGPT 27 U/L (12-78); AST/SGOT 24 U/L (7-37); BILIRUBIN,DIRECT 0.1 MG/DL (0.0-0.2); BILIRUBIN,TOTAL 0.3 MG/DL (0.2-1.0); TOTAL PROTEIN 8.2 GM/DL (6.4-8.2)
[2017-07-02 10:35] LABS: HEPATITIS B SURFACE ANTIBODY NEGATIVE (POSITIVE)
== END ==
LOC: M LABDRAW1 11:44
PROVIDERS: ATTEND Internal Medicine Infectious Disease
DX: B18.2 Chronic viral hepatitis C (principal)

== ENCOUNTER → 2017-07-27 | Outpatient (CLI) | payer MEDICARE, MEDICAID | LOC: M RAD 09:24 | DX: R06.09 Other forms of dyspnea (principal) | CPT/HCPCS: 71046 ==

== ENCOUNTER → 2017-08-06 | Outpatient (CLI) | payer MEDICARE, MEDICAID ==
[2017-08-06 11:15] LABS: BASO % 0.3 % (0.0-1.0); EOS # 0.1 10^3/uL (0.0-0.50); EOS % 0.8 % (0.0-3.0); HEMATOCRIT 43.9 % (42.0-52.0); HEMOGLOBIN 14.5 g/dl (14.0-18.0); IMMATURE GRANULOCYTE % 0.3 % (0-0); LYMPH # 2.7 10^3/uL (1.5-4.5); LYMPH % 27.7 % (24.0-44.0); MEAN CORPUSCULAR HEMOGLOBIN 27.2 pg (27.0-33.0); MEAN CORPUSCULAR VOLUME 82.2 fl (80.0-96.0); MONO # 0.8 10^3/uL (0.0-0.8); MONO % 8.7 % (0.0-5.0); NEUTROPHILS % 62.2 % (36.0-66.0); PLATELET COUNT, AUTOMATED 292 10^3/uL (150-450); RED BLOOD COUNT 5.34 10^6/uL (4.30-6.10); RED CELL DISTRIBUTION WIDTH 12.9 % (11.5-14.5); WHITE BLOOD COUNT 9.6 10^3/uL (4.0-10.0)
[2017-08-06 11:36] LABS: ANION GAP 8 MEQ/L (8-16); BLOOD UREA NITROGEN 19 MG/DL (7-18); CALCIUM LEVEL 9.2 MG/DL (8.5-10.1); CARBON DIOXIDE LEVEL 24 MEQ/L (21-32); CHLORIDE LEVEL 103 MEQ/L (98-107); CREATININE FOR GFR 1.13 MG/DL (0.70-1.30); GLOMERULAR FILTRATION RATE > 60.0 (>60); GLUCOSE, FASTING 108 MG/DL (70-100); POTASSIUM SERUM 4.5 MEQ/L (3.5-5.1); SODIUM LEVEL 135 MEQ/L (136-145)
== END ==
LOC: M LAB 10:27
DX: R06.09 Other forms of dyspnea (principal); I44.60 Unspecified fascicular block
CPT/HCPCS: 93005

== ENCOUNTER 2017-09-13 11:40 | Observation (INO) | payer MEDICARE, MEDICAID ==
[2017-09-13 12:33] LABS: BASO % 0.4 % (0.0-1.0); EOS # 0.1 10^3/uL (0.0-0.50); EOS % 0.9 % (0.0-3.0); HEMATOCRIT 38.8 % (42.0-52.0); HEMOGLOBIN 12.8 g/dl (14.0-18.0); IMMATURE GRANULOCYTE % 0.3 % (0-3.0); LYMPH # 3.1 10^3/uL (1.5-4.5); LYMPH % 28.2 % (24.0-44.0); MEAN CORPUSCULAR HEMOGLOBIN 27.1 pg (27.0-33.0); MONO % 8.9 % (0.0-5.0); NEUTROPHILS # 6.7 10^3/uL (1.8-7.7); NEUTROPHILS % 61.3 % (36.0-66.0); PLATELET COUNT, AUTOMATED 251 10^3/uL (150-450); RED BLOOD COUNT 4.73 10^6/uL (4.30-6.10); RED CELL DISTRIBUTION WIDTH 13.9 % (11.5-14.5); WHITE BLOOD COUNT 10.9 10^3/uL (4.0-10.0)
[2017-09-13 12:58] LABS: LACTIC ACID SEPSIS PROTOCOL 1.1 MMOL/L (0.4-2.0)
[2017-09-13 13:00] LABS: ALBUMIN 3.4 GM/DL (3.2-5.2); ALBUMIN/GLOBULIN RATIO 0.81 (1.00-1.93); ALKALINE PHOSPHATASE 108 U/L (45-117); ALT/SGPT 22 U/L (12-78); AST/SGOT 22 U/L (7-37); BILIRUBIN,DIRECT 0.1 MG/DL (0.0-0.2); BILIRUBIN,TOTAL 0.3 MG/DL (0.2-1.0); NT-PRO BNP 24 PG/ML (<125); TOTAL PROTEIN 7.6 GM/DL (6.4-8.2)
[2017-09-13 13:01] LABS: ANION GAP 8 MEQ/L (8-16); BLOOD UREA NITROGEN 13 MG/DL (7-18); CALCIUM LEVEL 8.4 MG/DL (8.5-10.1); CARBON DIOXIDE LEVEL 26 MEQ/L (21-32); CHLORIDE LEVEL 104 MEQ/L (98-107); CPK CREATINE PHOSPHOKINASE 184 U/L (39-308); CREATININE FOR GFR 1.17 MG/DL (0.70-1.30); GLOMERULAR FILTRATION RATE > 60.0 (>60); GLUCOSE, FASTING 84 MG/DL (70-100); POTASSIUM SERUM 4.2 MEQ/L (3.5-5.1); SODIUM LEVEL 138 MEQ/L (136-145); TROPONIN I < 0.02 NG/ML (< 0.10)
[2017-09-13 13:02] LABS: CK-MB VALUE MASS 1.7 NG/ML (0.0-3.6); MB/CK RELATIVE INDEX 0.92 (< OR =4)
[2017-09-13] MEDS ORDERED: ISOVUE-370 76% 100ML VIAL (Q9967) As Ordered ×2 (15:00)
[2017-09-13 16:00] LABS: INFLUENZA A AMPLIFICATION NEGATIVE (NEGATIVE); INFLUENZA B AMPLIFICATION NEGATIVE (NEGATIVE)
[2017-09-13] MEDS: AZITHROMYCIN INJ 500 MG, VIAL MATE ADAPTER 1 EACH in D5W 250 ML IV ×2 (16:45)
[2017-09-13] MEDS: CEFTRIAXONE SOD 1 GM in APPROPRIATE DILUENT 1 EA IV (16:45)
[2017-09-13] MEDS: FUROSEMIDE 40 MG/4 ML VIAL (J1940) IV ×2 (16:45)
[2017-09-13] MEDS ORDERED: ACETAMINOPHEN TAB 650MG DOSE (2X325MG) PO ×2 (18:15)
[2017-09-13] MEDS ORDERED: ONDANSETRON 4MG/2ML VIAL (J2405) IV ×2 (18:15)
[2017-09-13] MEDS ORDERED: ONDANSETRON 4 MG TAB (S0181) PO ×2 (18:15)
[2017-09-13] MEDS ORDERED: IPRATROPIUM 0.5MG/ALBUTEROL 2.5MG INH SOL UD 3ML (DUONEB)(J7620) NEB ×2 (18:30)
[2017-09-13 19:51] LABS: CPK CREATINE PHOSPHOKINASE 191 U/L (39-308); TROPONIN I < 0.02 NG/ML (< 0.10)
[2017-09-13 19:52] LABS: CK-MB VALUE MASS 1.5 NG/ML (0.0-3.6); MB/CK RELATIVE INDEX 0.78 (< OR =4)
[2017-09-13] MEDS: IPRATROPIUM 0.5MG/ALBUTEROL 2.5MG INH SOL UD 3ML (DUONEB)(J7620) NEB ×2 (20:19)
[2017-09-14 02:16] LABS: CPK CREATINE PHOSPHOKINASE 136 U/L (39-308); TROPONIN I < 0.02 NG/ML (< 0.10)
[2017-09-14 02:18] LABS: MB/CK RELATIVE INDEX 0.73 (< OR =4)
[2017-09-14] MEDS: IPRATROPIUM 0.5MG/ALBUTEROL 2.5MG INH SOL UD 3ML (DUONEB)(J7620) NEB ×4 (03:59→07:14)
[2017-09-14 06:15] LABS: BASO % 0.4 % (0.0-1.0); EOS # 0.2 10^3/uL (0.0-0.50); EOS % 2.5 % (0.0-3.0); HEMATOCRIT 40.4 % (42.0-52.0); IMMATURE GRANULOCYTE % 0.4 % (0-3.0); LYMPH # 2.3 10^3/uL (1.5-4.5); LYMPH % 33.5 % (24.0-44.0); MEAN CORPUSCULAR HEMOGLOBIN 26.6 pg (27.0-33.0); MEAN CORPUSCULAR HGB CONC 32.2 g/dl (32.0-36.5); MEAN CORPUSCULAR VOLUME 82.8 fl (80.0-96.0); MONO # 0.7 10^3/uL (0.0-0.8); MONO % 10.4 % (0.0-5.0); NEUTROPHILS # 3.6 10^3/uL (1.8-7.7); NEUTROPHILS % 52.8 % (36.0-66.0); PLATELET COUNT, AUTOMATED 239 10^3/uL (150-450); RED BLOOD COUNT 4.88 10^6/uL (4.30-6.10); RED CELL DISTRIBUTION WIDTH 13.8 % (11.5-14.5); WHITE BLOOD COUNT 6.9 10^3/uL (4.0-10.0)
[2017-09-14 06:32] LABS: ALBUMIN 3.4 GM/DL (3.2-5.2); ALBUMIN/GLOBULIN RATIO 0.79 (1.00-1.93); ALKALINE PHOSPHATASE 111 U/L (45-117); ALT/SGPT 20 U/L (12-78); ANION GAP 6 MEQ/L (8-16); AST/SGOT 22 U/L (7-37); BILIRUBIN,TOTAL 0.3 MG/DL (0.2-1.0); BLOOD UREA NITROGEN 16 MG/DL (7-18); CALCIUM LEVEL 8.8 MG/DL (8.5-10.1); CARBON DIOXIDE LEVEL 28 MEQ/L (21-32); CHLORIDE LEVEL 103 MEQ/L (98-107); CREATININE FOR GFR 1.05 MG/DL (0.70-1.30); GLOMERULAR FILTRATION RATE > 60.0 (>60); GLUCOSE, FASTING 102 MG/DL (70-100); MAGNESIUM LEVEL 2.1 MG/DL (1.8-2.4); POTASSIUM SERUM 4.2 MEQ/L (3.5-5.1); RHEUMATOID FACTOR QUANT < 10.0 IU/ML (0-15.0); SODIUM LEVEL 137 MEQ/L (136-145); TOTAL PROTEIN 7.7 GM/DL (6.4-8.2)
[2017-09-14] MEDS: OMEPRAZOLE 20 MG CAP PO ×2 (08:51)
[2017-09-14] MEDS: amLODIPine 5 MG TAB PO ×2 (08:51)
[2017-09-14] MEDS: MULTIVITAMINS/MINERALS THERAP 1 TAB PO ×2 (08:51)
[2017-09-14] MEDS: LISINOPRIL 40 MG TAB PO ×2 (08:51)
[2017-09-14] MEDS: ATORVASTATIN 20 MG TAB PO ×2 (08:51)
[2017-09-14] MEDS: FUROSEMIDE 40 MG TAB PO ×2 (08:51)
[2017-09-14] MEDS: ENOXAPARIN 40 MG/0.4 ML SYRINGE (J1650) SC ×4 (08:52→09:00)
[2017-09-14 10:52] LABS: CPK CREATINE PHOSPHOKINASE 118 U/L (39-308); TROPONIN I < 0.02 NG/ML (< 0.10)
[2017-09-14 10:53] LABS: MB/CK RELATIVE INDEX 0.84 (< OR =4)
[2017-09-14] MEDS ORDERED: CEFTRIAXONE SOD 1 GM in APPROPRIATE DILUENT 1 EA IV (17:00)
[2017-09-14] MEDS ORDERED: AZITHROMYCIN INJ 500 MG, VIAL MATE ADAPTER 1 EACH in D5W 250 ML IV ×2 (18:00)
[2017-09-15 14:15] LABS: ANTINUCLEAR ANTIBODIES DIRECT Negative (Negative)
== END 2017-09-14 12:40 | disposition home or self-care (01) ==
LOC: M ED 11:40 → M ED INP 18:12 → M MSPAV 21:09
DX: J84.89 Other specified interstitial pulmonary diseases (principal); J18.9 Pneumonia, unspecified organism; I50.32 Chronic diastolic (congestive) heart failure; I11.0 Hypertensive heart disease with heart failure; F31.9 Bipolar disorder, unspecified; K21.9 Gastro-esophageal reflux disease without esophagitis; M19.90 Unspecified osteoarthritis, unspecified site; Z86.19 Personal history of other infectious and parasitic diseases; M54.5 Low back pain; F11.11 Opioid abuse, in remission; Z87.898 Personal history of other specified conditions; R07.89 Other chest pain; R06.02 Shortness of breath; J84.10 Pulmonary fibrosis, unspecified; E78.5 Hyperlipidemia, unspecified; F17.210 Nicotine dependence, cigarettes, uncomplicated; Z88.5 Allergy status to narcotic agent; Z79.899 Other long term (current) drug therapy; Z79.2 Long term (current) use of antibiotics
CPT/HCPCS: J0456

== ENCOUNTER → 2018-04-25 | Outpatient (CLI) | payer MEDICARE | LOC: M RAD 12:13 | DX: R06.00 Dyspnea, unspecified (principal) | CPT/HCPCS: 71046 ==

== ENCOUNTER → 2018-05-10 | Outpatient (REF) | payer MEDICARE, MEDICAID ==
[2018-05-10 14:15] LABS: ERYTHROCYTE SEDIMENTATION RATE 6 mm/hr (0-15)
[2018-05-10 14:20] LABS: RHEUMATOID FACTOR QUANT < 10.0 IU/ML (<15.0)
[2018-05-13 00:10] LABS: ANCA-ATYPICAL <1:20 titer (Neg:<1:20); ANGIOTENSIN 1 CONVERTING ENZYM 4 U/L (14-82); ANTI DOUBLE STRAND-DNA AB 8 IU/mL (0-9); ANTINUCLEAR ANTIBODIES DIRECT Negative (Negative); CYTOPLASMIC NEUTROP AB ANCA-C <1:20 titer (Neg:<1:20); PERINUCLEAR AB ANCA-P <1:20 titer (Neg:<1:20); RNP ANTIBODIES 0.2 AI (0.0-0.9); SJOGREN'S ANTI SS-A 0.3 AI (0.0-0.9); SJOGREN'S ANTI SS-B <0.2 AI (0.0-0.9); SMITH ANTIBODIES <0.2 AI (0.0-0.9)
== END ==
LOC: M LAB REF 13:14
DX: R91.8 Other nonspecific abnormal finding of lung field (principal)
CPT/HCPCS: 82164

== ENCOUNTER → 2018-05-24 | Outpatient (CLI) | payer MEDICARE, MEDICAID | LOC: M RAD 09:00 | DX: J84.10 Pulmonary fibrosis, unspecified (principal) | CPT/HCPCS: 71250 ==

== ENCOUNTER → 2018-06-27 | Outpatient (CLI) | payer MEDICARE, MEDICAID ==
[~2018-06-27] MED LIST changes: +AZIT500T2 PO; +CEFD1CAP8 PO; +IBUPOTC PO; +OMEP20CA3 PO; +PROAAER10 INH; +VITMTA PO; +[UNRECOGNIZED DRUG - OTHER] TOP
[2018-06-27 10:59] LABS: ABG PARTIAL PRESSURE CO2 37.4 mmHg (35.0-45.0); ABG pH (ARTERIAL) 7.437 UNITS (7.350-7.450)
[2018-06-27 11:00] LABS: ABG BASE EXCESS 0.8 (-2.0-2.0); ABG HCO3 24.7 MEQ/L (22.0-26.0); ABG PARTIAL PRESSURE O2 77.6 mmHg (75.0-100.0); ABG STANDARD HCO3 25.1 MEQ/L (22.0-26.0); ABG TOTAL CO2 25.8 MEQ/L (22.0-29.0)
[2018-06-27 11:01] LABS: ABG O2 SATURATION 96.5 % (95.0-99.0)
[2018-06-27 11:03] LABS: APPEARANCE, URINE CLEAR (CLEAR); BACTERIA, URINE AUTO NEGATIVE (NEGATIVE); BILIRUBIN, URINE AUTO NEGATIVE (NEGATIVE); BLOOD, URINE BLOOD NEGATIVE (NEGATIVE); COLOR, URINE YELLOW (YELLOW); GLUCOSE, URINE (UA) AUTO NEGATIVE (NEGATIVE); KETONE, URINE AUTO NEGATIVE (NEGATIVE); LEUKOCYTE ESTERASE, URINE AUTO NEGATIVE (NEGATIVE); MUCUS, URINE SMALL (NEGATIVE); NITRITE, URINE AUTO NEGATIVE (NEGATIVE); PROTEIN, URINE AUTO NEGATIVE (NEGATIVE); RBC, URINE AUTO 3 /HPF (0-3); SPECIFIC GRAVITY URINE AUTO 1.016 (1.002-1.035); SQUAMOUS EPITHELIAL CELL UR AU 0 /HPF (0-6); UROBILINOGEN, URINE AUTO 0.2 mg/dL (0.0-2.0); WBC, URINE AUTO 0 /HPF (0-3)
[2018-06-27 11:05] LABS: HEMATOCRIT 45.8 % (42.0-52.0); HEMOGLOBIN 14.9 g/dl (13.5-17.5); MEAN CORPUSCULAR HEMOGLOBIN 28.1 pg (27.0-33.0); MEAN CORPUSCULAR HGB CONC 32.5 g/dl (32.0-36.5); MEAN CORPUSCULAR VOLUME 86.3 fl (80.0-96.0); PLATELET COUNT, AUTOMATED 249 10^3/uL (150-450); RED BLOOD COUNT 5.31 10^6/uL (4.30-6.10); WHITE BLOOD COUNT 12.8 10^3/uL (4.0-10.0)
[2018-06-27 11:17] LABS: INR 0.99; PROTHROMBIN TIME 13.2 SECONDS (12.1-14.4)
[2018-06-27 11:18] LABS: PARTIAL THROMBOPLASTIN TIME 30.1 SECONDS (25.4-37.6)
[2018-06-27 11:27] LABS: BLOOD UREA NITROGEN 12 MG/DL (7-18); CALCIUM LEVEL 9.3 MG/DL (8.5-10.1); CARBON DIOXIDE LEVEL 26 MEQ/L (21-32); CHLORIDE LEVEL 102 MEQ/L (98-107); CREATININE FOR GFR 1.12 MG/DL (0.70-1.30); GLOMERULAR FILTRATION RATE > 60.0 (>60); GLUCOSE, FASTING 96 MG/DL (70-100); POTASSIUM SERUM 4.3 MEQ/L (3.5-5.1); SODIUM LEVEL 137 MEQ/L (136-145)
[2018-06-27 11:43] LABS: HEPATITIS B SURFACE ANTIBODY NEGATIVE (POSITIVE)
--- NOTE | 2018-06-27 12:05 | REP ---
CHEST X-RAY: TWO VIEWS. HISTORY: Dyspnea. Preadmission testing. COMPARISON CHEST X-RAY: April 25, 2018 FINDINGS: There is a diffuse interstitial lung disease pattern consistent with fibrosis, unchanged from the April 25, 2018 prior study. Heart is not enlarged. Pleural angles are sharp. The patient is status post ventral discectomy and fusion plating in the lower cervical spine. No other significant bony abnormality is seen. IMPRESSION: Diffuse interstitial lung disease finding, consistent with fibrosis. Unchanged from the comparison study. Electronically Signed by Ron Kim MD 06/27/2018 08:00 P
--- NOTE | 2018-06-28 08:48 | ECGEPIP ---
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
[2018-06-29 14:14] LABS: HEPATITIS C QUANTITATION HCV Not Detected IU/mL (.)
== END ==
LOC: M ADMPAT 09:20
PROVIDERS: ATTEND Thoracic Surgery (Cardiothoracic Vascular Surgery)
DX: Z01.818 Encounter for other preprocedural examination (principal); J84.10 Pulmonary fibrosis, unspecified; B18.2 Chronic viral hepatitis C; R91.1 Solitary pulmonary nodule; R91.8 Other nonspecific abnormal finding of lung field

== ENCOUNTER → 2018-07-07 | Outpatient (CLI) | payer MEDICARE, MEDICAID ==
[~2018-07-07] MED LIST changes: +ALEV220C2 PO; +AMLO10TA5 PO; +LISI40TA PO
--- NOTE | 2018-07-13 13:58 | SLEEPHOME ---
DATE OF PROCEDURE: 07/07/2018 INTERPRETATION: Diagnostic home sleep testing was performed due to concern for sleep apnea syndrome in this patient with symptoms of excessive daytime sleepiness, insomnia, snoring, gasping respirations, and nonrestorative sleep. Portable home monitoring was performed using a NOX-T3 respiratory monitoring device. Continuous record was made of pulse, oxygen saturation, airflow, chest and abdominal strain. There were 430.4 minutes of data analyzed of presumed sleep. There was however, a significant time period when the pulse and SpO2 monitoring was not captured. During the presumed sleep interval, there was a minimum of 225 respiratory events identified of 10 seconds in duration or longer for a respiratory event index (MAY) of at least 31.4. The events were predominately obstructive apneas / hypopneas however, when considering that oximetry data was only available until about 1:30 in the morning, over 50% of the night hypopneas could not be evaluated. I suspect that his index is significantly higher, perhaps even doubled. The patient's baseline saturation was 92% with a minimal recorded value of 84%. The patient's baseline pulse was 95 beast per minute with a maximum recorded pulse of 114 beats per minute. IMPRESSION: Abnormal home sleep test with repetitive respiratory events, respiratory event of at least 31.2 is consistent with severe obstructive sleep apnea. Many events were likely not seen because of the loss of SpO2 monitoring making it impossible to determine hypopneas. RECOMMENDATIONS: Recommend the patient be sent to a sleep disorder center for formal determination of pressure therapy or be started on a APAP. MTDD
== END ==
LOC: M SLEEP HO 10:32
PROVIDERS: ATTEND Internal Medicine Pulmonary Disease
DX: G47.30 Sleep apnea, unspecified (principal)

== ENCOUNTER → 2018-07-27 | Outpatient (CLI) | payer MEDICARE, MEDICAID ==
[~2018-07-27] MED LIST changes: +8 HO650T2 PO
--- NOTE | 2018-07-28 00:46 | REP ---
Clinical: History of pulmonary fibrosis with dyspnea. Technique: PA and lateral. Comparison: 07/21/2018, 04/25/2018. Findings: Mediastinum and cardiac silhouette are stable and within normal limits. Lung durham demonstrate diffuse chronic stable fibrosis and interstitial disease. No obvious acute consolidation, effusion, or pneumothorax. Skeletal structures are intact. Impression: Chronic changes consistent with a history of pulmonary fibrosis. While no focal consolidation or effusion is appreciated, a very subtle superimposed process cannot be excluded. Electronically Signed by Sai Patterson MD 07/28/2018 12:37 A
== END ==
LOC: M RAD 13:37
PROVIDERS: ATTEND Thoracic Surgery (Cardiothoracic Vascular Surgery)
DX: R91.8 Other nonspecific abnormal finding of lung field (principal); J84.10 Pulmonary fibrosis, unspecified; R07.1 Chest pain on breathing

== ENCOUNTER 2018-07-31 09:22 | Emergency (ER) | payer MEDICARE, MEDICAID ==
[~2018-07-31] VITALS: Ht 182.9 cm; Wt 105.5 kg
[~2018-07-31 09:22] MED LIST changes: -8 HO650T2 PO
[2018-07-31 10:11] LABS: BASO # 0.1 10^3/uL (0.0-0.2); BASO % 0.3 % (0.0-1.0); EOS # 0.4 10^3/uL (0.0-0.50); EOS % 1.9 % (0.0-3.0); HEMATOCRIT 41.7 % (42.0-52.0); HEMOGLOBIN 13.5 g/dl (13.5-17.5); LYMPH # 3.9 10^3/uL (1.5-4.5); MEAN CORPUSCULAR HEMOGLOBIN 27.3 pg (27.0-33.0); MEAN CORPUSCULAR HGB CONC 32.4 g/dl (32.0-36.5); MEAN CORPUSCULAR VOLUME 84.4 fl (80.0-96.0); MONO # 1.6 10^3/uL (0.0-0.8); MONO % 8.6 % (0.0-5.0); NEUTROPHILS # 12.5 10^3/uL (1.8-7.7); NEUTROPHILS % 67.7 % (36.0-66.0); PLATELET COUNT, AUTOMATED 327 10^3/uL (150-450); RED BLOOD COUNT 4.94 10^6/uL (4.30-6.10); WHITE BLOOD COUNT 18.5 10^3/uL (4.0-10.0)
[2018-07-31 10:22] LABS: INR 1.02; PARTIAL THROMBOPLASTIN TIME 30.4 SECONDS (25.4-37.6); PROTHROMBIN TIME 13.5 SECONDS (12.1-14.4)
[2018-07-31 10:29] LABS: ERYTHROCYTE SEDIMENTATION RATE 41 mm/hr (0-15)
[2018-07-31 10:39] LABS: ALBUMIN 3.5 GM/DL (3.2-5.2); BILIRUBIN,DIRECT 0.1 MG/DL (0.0-0.2); BILIRUBIN,TOTAL 0.3 MG/DL (0.2-1.0); C REACTIVE PROTEIN QUANTITATIV 3.11 MG/DL (0.00-0.30); CALCIUM LEVEL 8.7 MG/DL (8.5-10.1); CREATININE FOR GFR 1.83 MG/DL (0.70-1.30); GLOMERULAR FILTRATION RATE 42.3 (>60); POTASSIUM SERUM 4.1 MEQ/L (3.5-5.1); TOTAL PROTEIN 8.5 GM/DL (6.4-8.2)
--- NOTE | 2018-07-31 11:20 | REP ---
LEFT LOWER EXTREMITY DOPPLER VENOUS ULTRASOUND: 07/31/2018. Comparison: None. Clinical history: Evaluate for DVT. Lower extremity pain. Technique: The deep venous system of the left lower extremity is evaluated with logan scale imaging, compression ultrasound, color imaging and duplex Doppler interrogation. Examination from the groin through the popliteal fossa into the proximal calf. Findings: There is full compressibility from the common femoral vein in the inguinal region through the popliteal vein. Color imaging confirms patency throughout the course of the deep venous system. There is respiratory variation and augmented flow at all levels. Impression: 1. No Doppler venous ultrasound evidence of DVT in the left lower extremity. Electronically Signed by Edgar Byrd MD 07/31/2018 11:11 A
--- NOTE | 2018-07-31 12:41 | REP ---
HEPATIC ULTRASOUND: 07/31/2018. Comparison: CT chest 07/14/2018, RUQ ultrasound 08/31/2016. Clinical history: Right upper quadrant pain. History hepatitis C. Evaluate for gallbladder or pancreas abnormality. Findings: Sonographic evaluation of the right upper quadrant shows the liver homogeneous but not increased in echotexture. However the liver is slightly enlarged and 18.8 cm vertical diameter in the midclavicular line. No hepatic mass, intrahepatic biliary dilatation nor perihepatic ascites. Gallbladder is adequately filled and does demonstrate some small amount of layering sludge. Wall thickness is 2.5 mm and normal. There is no stone, mass or pericholecystic fluid. Common bile duct 3.8 mm and unremarkable. The pancreas is limited evaluation due to gas shadowing. Portions seen were unremarkable. Right kidney is 10.6 x 4.8 x 4.5 cm. There is no hydronephrosis, stone or other abnormality visible. Aorta not seen because of gas shadowing. Impression: 1. Some mild hepatomegaly with an 18.8 cm vertical diameter of the right hepatic lobe in the midclavicular line. Although echogenicity is homogeneous, it appears normal and not abnormally increased to suggest fatty infiltration. No biliary dilatation or mass. No ascites. 2. Gallbladder with small amounts of layering sludge but no mass, wall thickening, stone or pericholecystic fluid. 3. Common duct 3.8 mm and normal. The visualized right kidney and portions of pancreas and kidneys seen were unremarkable. Electronically Signed by Edgar Byrd MD 07/31/2018 02:31 P
[2018-07-31] MEDS ORDERED: NS 1,000 ML IV ONE (12:45)
[2018-07-31] MEDS: MORPHINE 4 MG/ML 1ML VIAL/SYRINGE (J2270) IV PRN ×2 (12:49→15:07)
--- NOTE | 2018-07-31 13:36 | REP ---
LEFT KNEE, COMPLETE: 07/31/2018. Clinical history: Left lower extremity pain. No trauma. Non localized. Evaluate for infection. Five views are provided. There is spurring at the insertion of the quadriceps tendon on the upper pole the patella. No definite suprapatellar effusion. Spurs in the tibial spines noted. No narrowing of the medial or lateral compartments nor the patellofemoral joint. No patellar subluxation. No fracture, avulsion, loose body or osteochondral defect. I do not see significant soft tissue swelling about the knee. Impression: 1. Minor degenerative changes at the knee without definite joint effusion, fracture, loose body or bony destructive lesion. No abnormal soft tissue swelling by plain film. Electronically Signed by Edgar Byrd MD 07/31/2018 04:36 P
--- NOTE | 2018-07-31 13:38 | REP ---
LEFT TIBIA-FIBULA: 07/31/2018. Clinical history: Left lower leg pain, atraumatic. Non localized. Rule out infection. Findings: Four views were provided to encompass the entirety of the tibia and fibula. There is no fracture or focal lesion of the tibia-fibula. There is no avulsion, soft-tissue calcification, foreign body or bony destructive lesion visible. Minor degenerative changes with spurs at the tibial spines and a spur at the quadriceps insertion noted. No significant soft tissue swelling visible. Impression: 1. No fracture, avulsion, destructive bone lesion, abnormal soft-tissue calcification or foreign body. Minimal degenerative changes about the knee. No significant soft tissue swelling seen by plain film. Electronically Signed by Edgar Byrd MD 07/31/2018 04:36 P
--- NOTE | 2018-07-31 13:48 | REP ---
LEFT ANKLE COMPLETE: 07/31/2018. Comparison: Left tibia-fibula and foot series this date. Clinical history: Left lower leg pain, atraumatic, non localized. Rule out infection. Findings: Four views of the ankle were provided. Distal tibia and fibula without visible or displaced fracture. There is no avulsion or destructive bone lesion. The mortise joint appeared symmetric and normal. There is no osteochondral defect in the talar dome. Subtalar joints are intact. Calcaneus and talus without fracture or focal lesion. The talonavicular and calcaneocuboid joints are normal. I do not see significant swelling about the ankle. Impression: 1. No visible or displaced fracture, avulsion, disruption of the mortise joint, abnormal soft-tissue calcification, foreign body or significant soft tissue swelling by plain film. Electronically Signed by Edgar Byrd MD 07/31/2018 04:37 P
--- NOTE | 2018-07-31 13:50 | REP ---
LEFT FOOT COMPLETE: 07/31/2018. Clinical history: Left lower extremity pain, atraumatic, non localized. Rule out infection. Comparison: Left ankle series today. Findings: The four views show no plantar or Achilles insertional spur. Subtalar joints intact. Tarsal bones, metatarsals, phalanges and their joints show no acute destructive lesion or fracture. Some minor degenerative changes noted at some of the IP joints and the first MTP joint. No foreign body or abnormal soft tissues swelling. Impression: 1. Minimal degenerative change but no fracture, avulsion, erosion, destructive lesion or significant soft tissue swelling. Electronically Signed by Edgar Byrd MD 07/31/2018 04:37 P
[2018-07-31 15:44] VITALS: BP 113/61
[2018-07-31] MEDS ORDERED: 8 HO650T2 PO (15:47)
--- NOTE | 2018-08-01 06:45 | ED PDOC ---
Post-Departure Follow-Up dr montenegro faxed formal report of liver us for fu Gianni Guzman MD Aug 01, 2018 06:45
--- NOTE | 2018-08-01 07:51 | REP ---
CT LEFT TIBIA-FIBULA WITHOUT CONTRAST: 07/31/2018. Comparison: X-ray 07/31/2018. Technique: Axial soft-tissue and bone windows reviewed with coronal and sagittal reconstructions provided. Findings: Axial images show a small suprapatellar bursal fluid collection extending into the medial and lateral bursa adjacent to the condyles. No joint space narrowing or patellar fracture. The bony femoral condyles, tibial plateau, tibial shaft and plafond were intact and without a fracture. Cortex preserved. No endosteal scalloping or mass. Sclerotic focus along the endosteal surface of the proximal tibial diametaphysis medially, likely a benign bone island. Remainder of the tibial shaft and endosteal surface unremarkable. I do not see soft tissue swelling in the pretibial region nor periosteal reaction. There is no fracture or healing fracture. The fibula is likewise unremarkable for fracture or focal lesion. No destructive lesions or cortical breach. The anterior and posterior compartment musculature of the lower leg was normal. Visualized portions of ankle and foot grossly intact. Please see CT foot report for full description. Impression: 1. No visible destructive change in the tibia or fibula to suggest osteomyelitis. The anterior posterior compartment musculature were symmetric and normal in their appearance without evidence of edema, fluid collection or abscess. Subcutaneous fat intact. Nothing acute on this CT. Electronically Signed by Edgar Byrd MD 08/01/2018 01:01 P
--- NOTE | 2018-08-01 07:52 | REP ---
CT LEFT FOOT WITHOUT CONTRAST: 07/31/2018 CLINICAL HISTORY: Lower extremity pain, rule out infection. COMPARISON: Left foot and ankle x-rays this date. TECHNIQUE: Axial soft-tissue and bone windows through the foot with coronal and sagittal reconstructions provided. FINDINGS: Distal tibia to the tibial plafond and distal fibula are unremarkable. Ankle mortise joint is symmetric and normal and is without talar dome osteochondral defect, avulsion or fracture fragments. There is some minor degenerative changes inferior aspect of the medial malleolus and medial talus adjacent to it. Tarsal bones and articulations are unremarkable. The talonavicular and calcaneocuboid joints are normal. Tarsometatarsal joints, metatarsals and the MTP joints are all grossly intact without fracture or destructive lesion. That portion of phalanges and IP joints visualized also unremarkable. Normal arches seen on the sagittal reconstructions and the subtalar joints intact. Achilles tendon grossly intact. No abnormal soft tissue swelling about the lower leg or at the ankle. Some minor subcutaneous edema in the plantar aspect of the mid and distal forefoot. This is nonspecific. IMPRESSION: 1. There is no fracture, avulsion, destructive lesion or other finding to suggest osteomyelitis in the bony foot and ankle included on this study. 2. No abnormal soft tissue swelling of the lower leg hind foot and ankle region. 3. Minimal subcutaneous edema plantar aspect of the mid and distal forefoot. No evidence of abscess. No subcutaneous emphysema. No acute bony abnormality. Electronically Signed by Edgar Byrd MD 08/01/2018 01:03 P
== END 2018-07-31 15:55 | disposition home or self-care (01) ==
LOC: M ED 09:22
DX: M79.662 Pain in left lower leg (principal); S37.002A Unspecified injury of left kidney, initial encounter; X58.XXXA Exposure to other specified factors, initial encounter; Y92.89 Other specified places as the place of occurrence of the external cause; I50.9 Heart failure, unspecified; I11.0 Hypertensive heart disease with heart failure; E78.5 Hyperlipidemia, unspecified; M51.37 Other intervertebral disc degeneration, lumbosacral region; K21.9 Gastro-esophageal reflux disease without esophagitis; J84.10 Pulmonary fibrosis, unspecified; R91.1 Solitary pulmonary nodule; Z86.14 Personal history of Methicillin resistant Staphylococcus aureus infection; Z79.899 Other long term (current) drug therapy; Z88.5 Allergy status to narcotic agent; Z88.8 Allergy status to other drugs, medicaments and biological substances; F10.11 Alcohol abuse, in remission; F11.10 Opioid abuse, uncomplicated; Z87.891 Personal history of nicotine dependence
CPT/HCPCS: 36415; 73564; 73590; 73610; 73630; 73700; 76705; 80048; 80076; 85025; 85610; 85652; 85730; 86140; 87040; 93971; 96374; 96376; 99284; J2270

== ENCOUNTER → 2018-08-15 | Outpatient (CLI) | payer MEDICARE ==
[~2018-08-15] MED LIST changes: +8 HO650T2 PO
--- NOTE | 2018-08-16 02:57 | REP ---
Clinical: Pulmonary fibrosis. Technique: PA and lateral. Comparison: 07/27/2018. Findings: A right apical pneumothorax of approximately 25% is appreciated. Diffuse underlying interstitial changes noted throughout the bilateral lung durham consistent with the given diagnosis of pulmonary fibrosis. Subtle superimposed scattered atelectasis and/or infiltrates cannot be excluded. No effusion. Mediastinum and cardiac silhouette are stable and within normal limits. Skeletal structures are intact. Impression: Right apical pneumothorax of approximately 25%. Electronically Signed by Sai Patterson MD 08/16/2018 02:48 A
== END ==
LOC: M SMT 09:33
PROVIDERS: ATTEND Thoracic Surgery (Cardiothoracic Vascular Surgery)
DX: J84.10 Pulmonary fibrosis, unspecified (principal)

== ENCOUNTER → 2018-08-18 | Outpatient (CLI) | payer MEDICARE ==
--- NOTE | 2018-08-19 01:52 | REP ---
Clinical: Pulmonary fibrosis with dyspnea. Technique: PA and lateral. Comparison: 08/15/2018. Findings: Mediastinum and cardiac silhouette are normal. Lung durham demonstrate diffuse chronic fibrosis and interstitial changes. A right apical pneumothorax is again identified at and essentially unchanged. Skeletal structures are intact. Impression: Right apical pneumothorax unchanged from recent prior examination. Electronically Signed by Sai Patterson MD 08/19/2018 01:42 A
== END ==
LOC: M SMT 10:32
PROVIDERS: ATTEND Thoracic Surgery (Cardiothoracic Vascular Surgery)
DX: J84.10 Pulmonary fibrosis, unspecified (principal); R07.1 Chest pain on breathing; J93.9 Pneumothorax, unspecified

== ENCOUNTER → 2018-08-25 | Outpatient (CLI) | payer MEDICARE ==
--- NOTE | 2018-08-25 14:43 | REP ---
Chest two views HISTORY: follow-up chest x-ray Comparison: 08/18/2018 A diffuse increase in interstitial markings is present in the lungs consistent with chronic interstitial fibrosis. The heart is normal in size. The pulmonary vasculature is normal in appearance. The bony structure is intact. IMPRESSION: Chronic interstitial fibrosis. Electronically Signed by Reza Yang MD 08/25/2018 02:35 P
== END ==
LOC: M SMT 11:45
PROVIDERS: ATTEND Thoracic Surgery (Cardiothoracic Vascular Surgery)
DX: J98.4 Other disorders of lung (principal); J84.10 Pulmonary fibrosis, unspecified; R07.1 Chest pain on breathing; J93.9 Pneumothorax, unspecified

== ENCOUNTER → 2018-09-20 | Outpatient (REF) | payer MEDICARE, MEDICAID ==
[2018-09-20 14:40] LABS: URIC ACID 5.6 MG/DL (3.5-7.2)
== END ==
LOC: M LAB REF 13:51
PROVIDERS: ATTEND Internal Medicine Pulmonary Disease
DX: J84.82 Adult pulmonary Langerhans cell histiocytosis (principal)

== ENCOUNTER → 2018-09-20 | Outpatient (REF) | payer MEDICARE, MEDICAID ==
[2018-09-20 12:31] LABS: BASO % 0.3 % (0.0-1.0); EOS # 0.2 10^3/uL (0.0-0.50); EOS % 1.6 % (0.0-3.0); HEMATOCRIT 43.2 % (42.0-52.0); HEMOGLOBIN 14.1 g/dl (13.5-17.5); LYMPH # 3.4 10^3/uL (1.5-4.5); LYMPH % 30.2 % (24.0-44.0); MEAN CORPUSCULAR HEMOGLOBIN 27.2 pg (27.0-33.0); MEAN CORPUSCULAR HGB CONC 32.6 g/dl (32.0-36.5); MEAN CORPUSCULAR VOLUME 83.2 fl (80.0-96.0); MONO % 8.4 % (0.0-5.0); NEUTROPHILS # 6.7 10^3/uL (1.8-7.7); PLATELET COUNT, AUTOMATED 257 10^3/uL (150-450); RED BLOOD COUNT 5.19 10^6/uL (4.30-6.10); WHITE BLOOD COUNT 11.3 10^3/uL (4.0-10.0)
[2018-09-20 13:36] LABS: ALBUMIN 3.5 GM/DL (3.2-5.2); ALT/SGPT 19 U/L (12-78); BILIRUBIN,TOTAL 0.4 MG/DL (0.2-1.0); BLOOD UREA NITROGEN 14 MG/DL (7-18); CALCIUM LEVEL 8.9 MG/DL (8.5-10.1); CARBON DIOXIDE LEVEL 26 MEQ/L (21-32); CHLORIDE LEVEL 103 MEQ/L (98-107); CHOLESTEROL LEVEL 185 MG/DL (<200); CHOLESTEROL RISK RATIO 5.606 (<5); CREATININE FOR GFR 1.16 MG/DL (0.70-1.30); GLOMERULAR FILTRATION RATE > 60.0 (>60); GLUCOSE, FASTING 108 MG/DL (70-100); HDL CHOLESTEROL 33 MG/DL (>40); LDL CHOLESTEROL 119 MG/DL (<100); NON-HDL-C 152 MG/DL; POTASSIUM SERUM 4.1 MEQ/L (3.5-5.1); SODIUM LEVEL 137 MEQ/L (136-145); TESTOSTERONE 241 NG/DL (241-827); TRIGLYCERIDES LEVEL 163 MG/DL (<150)
== END ==
LOC: M LAB REF 12:02
PROVIDERS: ATTEND Family Medicine Addiction Medicine
DX: I10 Essential (primary) hypertension (principal); N52.8 Other male erectile dysfunction; J84.82 Adult pulmonary Langerhans cell histiocytosis

== ENCOUNTER → 2018-11-29 | Outpatient (REF) | payer MEDICARE, MEDICAID ==
[~2018-11-29] MED LIST changes: -/MOXI40TA OR; +AVEL1TAB2 OR; +LISI40TA52 PO; -LISI40TAB PO
[2018-11-29 18:24] LABS: BASO % 0.4 % (0.0-1.0); EOS # 0.2 10^3/uL (0.0-0.50); EOS % 1.7 % (0.0-3.0); HEMOGLOBIN 14.5 g/dl (13.5-17.5); LYMPH # 2.8 10^3/uL (1.5-4.5); LYMPH % 27.9 % (24.0-44.0); MEAN CORPUSCULAR HEMOGLOBIN 26.9 pg (27.0-33.0); MEAN CORPUSCULAR HGB CONC 31.5 g/dl (32.0-36.5); MEAN CORPUSCULAR VOLUME 85.3 fl (80.0-96.0); MONO # 0.6 10^3/uL (0.0-0.8); MONO % 6.2 % (0.0-5.0); NEUTROPHILS # 6.4 10^3/uL (1.8-7.7); NEUTROPHILS % 63.4 % (36.0-66.0); PLATELET COUNT, AUTOMATED 275 10^3/uL (150-450); RED BLOOD COUNT 5.39 10^6/uL (4.30-6.10); WHITE BLOOD COUNT 10.1 10^3/uL (4.0-10.0)
[2018-11-29 18:38] LABS: ALBUMIN 3.7 GM/DL (3.2-5.2); ALT/SGPT 21 U/L (12-78); BILIRUBIN,TOTAL 0.4 MG/DL (0.2-1.0); BLOOD UREA NITROGEN 14 MG/DL (7-18); CALCIUM LEVEL 8.8 MG/DL (8.5-10.1); CARBON DIOXIDE LEVEL 29 MEQ/L (21-32); CHLORIDE LEVEL 99 MEQ/L (98-107); CREATININE FOR GFR 1.22 MG/DL (0.70-1.30); GLOMERULAR FILTRATION RATE > 60.0 (>60); GLUCOSE, FASTING 121 MG/DL (70-100); POTASSIUM SERUM 4.2 MEQ/L (3.5-5.1); SODIUM LEVEL 135 MEQ/L (136-145); TOTAL PROTEIN 8.6 GM/DL (6.4-8.2)
[2018-11-29 18:39] LABS: TESTOSTERONE 316 NG/DL (241-827)
== END ==
LOC: M LAB REF 17:23
PROVIDERS: ATTEND Family Medicine Addiction Medicine
DX: I10 Essential (primary) hypertension (principal); E55.9 Vitamin D deficiency, unspecified; R53.83 Other fatigue

== ENCOUNTER → 2018-12-28 | Outpatient (REF) | payer MEDICARE, MEDICAID ==
[2018-12-28 13:17] LABS: FREE T4 1.74 NG/DL (0.76-1.46); PROSTATIC SPECIFIC AG MONITOR 0.25 NG/ML (< 4.00); THYROID STIMULATING HORMONE 1.7 uIU/ML (0.358-3.740)
== END ==
LOC: M LAB REF 12:32
PROVIDERS: ATTEND Family Medicine Addiction Medicine
DX: R79.89 Other specified abnormal findings of blood chemistry (principal); E03.8 Other specified hypothyroidism

== ENCOUNTER → 2019-01-18 | Outpatient (CLI) | payer MEDICARE, MEDICAID ==
[~2019-01-18] MED LIST changes: +ISOVUE-370 76% 100ML VIAL (Q9967) As Ordered ONE; -OMEP20CA3 PO; +OMEP20CA4 PO; +TERB250T90; +TEST1.622
--- NOTE | 2019-01-18 21:58 | REP ---
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 Findings: Alignment and lordosis maintained. Limbus vertebra at L4 noted. No acute fracture / compression injury or subluxation. Early moderate degenerative changes include endplate sclerosis with minimal disc space narrowing predominantly at L4-5 and L5-S1. Impression: 1. Early moderate multilevel degenerative spondylosis. 2. L4 limbus vertebra. Electronically Signed by Sai Patterson MD 01/18/2019 09:50 P
--- NOTE | 2019-01-18 22:13 | REP ---
Clinical: thoracic pain. Technique: AP, lateral, and swimmers views. Findings: Alignment and kyphosis is maintained. Vertebral bodies intact. No acute fracture / compression injury or subluxation. No degenerative changes. Paravertebral soft tissues are normal. Impression: Normal thoracic spine series. The Electronically Signed by Sai Patterson MD 01/18/2019 10:03 P
--- NOTE | 2019-01-18 23:15 | REP ---
Clinical: Langerhans cell histiocytosis. Technique: Axial contrast enhanced images from the thoracic inlet to the upper abdomen with coronal and sagittal re-formations using 100 ml Isovue 370 intravenous contrast material. Comparison: 07/14/2018. Findings: Moderate/advanced diffuse fibrosis with interstitial changes and scarring as well as mild underlying bronchiectasis again noted and essentially unchanged. No focal consolidation. 8 mm noncalcified nodule in the medial right lower lobe (image 47) is unchanged through 10/18/2014. No further nodule or mass lesion. No effusion. No pneumothorax. Mediastinal and hilar adenopathy is unchanged compared to 07/14/2018. Thoracic aorta, pulmonary vasculature and heart/pericardium are relatively normal / stable. Small hiatal hernia noted. Paraesophageal lymph nodes are also appreciated and stable measuring up to approximately 11 mm. Surrounding musculoskeletal structures are intact. Impression: 1. Stable diffuse fibrosis and chronic interstitial changes along with mild bronchiectasis and mediastinal/hilar adenopathy unchanged. 2. No new acute process identified. Electronically Signed by Sai Patterson MD 01/18/2019 11:07 P
== END ==
LOC: M RAD 09:59
PROVIDERS: ATTEND Internal Medicine Pulmonary Disease
DX: C96.5 Multifocal and unisystemic Langerhans-cell histiocytosis (principal); J84.10 Pulmonary fibrosis, unspecified; J47.9 Bronchiectasis, uncomplicated
CPT/HCPCS: 71260; 72072; 72100; Q9967

== ENCOUNTER 2019-01-23 12:53 | Emergency (ER) | payer MEDICARE, MEDICAID ==
[~2019-01-23] VITALS: Ht 182.9 cm; Wt 102.3 kg
[~2019-01-23 12:53] MED LIST changes: -ISOVUE-370 76% 100ML VIAL (Q9967) As Ordered ONE; -TERB250T90; -TEST1.622
[2019-01-23 12:54] VITALS: BP 92/57
[2019-01-23] MEDS ORDERED: TERB250T90 (13:06)
[2019-01-23] MEDS ORDERED: TEST1.622 (13:06)
== END 2019-01-23 14:17 | disposition left against medical advice (07) ==
LOC: M ED 12:53
DX: Z53.29 Procedure and treatment not carried out because of patient's decision for other reasons (principal)

== ENCOUNTER → 2019-02-17 | Outpatient (REF) | payer MEDICARE, MEDICAID ==
[~2019-02-17] MED LIST changes: +TERB250T90; +TEST1.622
== END ==
LOC: M LAB REF 18:48
PROVIDERS: ATTEND Nurse Practitioner Family
DX: L03.90 Cellulitis, unspecified (principal)

== ENCOUNTER → 2019-02-23 | Outpatient (REF) | payer MEDICARE, MEDICAID ==
[~2019-02-23] MED LIST changes: -AZIT500T2 PO; +AZIT500T5 PO; +OMEP1CAP73 PO; -OMEP20CA4 PO; -OMEP40CA2 PO; +OMEP40CA97 PO
[2019-02-23 12:38] LABS: BASO % 0.4 % (0.0-1.0); EOS # 0.2 10^3/uL (0.0-0.50); EOS % 2.9 % (0.0-3.0); HEMATOCRIT 44.1 % (42.0-52.0); HEMOGLOBIN 13.7 g/dl (13.5-17.5); LYMPH # 1.9 10^3/uL (1.5-4.5); LYMPH % 27.9 % (24.0-44.0); MEAN CORPUSCULAR HEMOGLOBIN 25.9 pg (27.0-33.0); MEAN CORPUSCULAR HGB CONC 31.1 g/dl (32.0-36.5); MEAN CORPUSCULAR VOLUME 83.4 fl (80.0-96.0); MONO # 0.6 10^3/uL (0.0-0.8); MONO % 9.3 % (0.0-5.0); NEUTROPHILS # 4.1 10^3/uL (1.8-7.7); NEUTROPHILS % 59.4 % (36.0-66.0); PLATELET COUNT, AUTOMATED 257 10^3/uL (150-450); RED BLOOD COUNT 5.29 10^6/uL (4.30-6.10); WHITE BLOOD COUNT 6.9 10^3/uL (4.0-10.0)
[2019-02-23 12:57] LABS: ALBUMIN 3.5 GM/DL (3.2-5.2); ALT/SGPT 20 U/L (12-78); BILIRUBIN,TOTAL 0.2 MG/DL (0.2-1.0); BLOOD UREA NITROGEN 12 MG/DL (7-18); CALCIUM LEVEL 8.9 MG/DL (8.5-10.1); CARBON DIOXIDE LEVEL 28 MEQ/L (21-32); CHLORIDE LEVEL 103 MEQ/L (98-107); CHOLESTEROL LEVEL 157 MG/DL (<200); CHOLESTEROL RISK RATIO 4.906 (<5); CREATININE FOR GFR 1.21 MG/DL (0.70-1.30); FREE T4 1.41 NG/DL (0.76-1.46); GLOMERULAR FILTRATION RATE > 60.0 (>60); GLUCOSE, FASTING 96 MG/DL (70-100); HDL CHOLESTEROL 32 MG/DL (>40); LDL CHOLESTEROL 104 MG/DL (<100); NON-HDL-C 125 MG/DL; POTASSIUM SERUM 4.5 MEQ/L (3.5-5.1); SODIUM LEVEL 139 MEQ/L (136-145); TOTAL PROTEIN 7.6 GM/DL (6.4-8.2); TRIGLYCERIDES LEVEL 104 MG/DL (<150)
[2019-02-23 13:56] LABS: TESTOSTERONE 358 NG/DL (241-827); TOTAL 25(OH) VITAMIN D 34.1 NG/ML (30.0-100.0)
[2019-02-23 14:43] LABS: HEMOGLOBIN A1c 6.5 %
[2019-02-25 14:36] LABS: Lyme Disease IgG Ab 18 kDa Ban Absent (.); Lyme Disease IgG Ab 23 kDa Ban Absent (.); Lyme Disease IgG Ab 28 kDa Ban Absent (.); Lyme Disease IgG Ab 30 kDa Ban Absent (.); Lyme Disease IgG Ab 39 kDa Ban Absent (.); Lyme Disease IgG Ab 41 kDa Ban Absent (.); Lyme Disease IgG Ab 45 kDa Ban Absent (.); Lyme Disease IgG Ab 58 kDa Ban Absent (.); Lyme Disease IgG Ab 66 kDa Ban Absent (.); Lyme Disease IgG Ab 93 kDa Ban Absent (.); Lyme Disease IgG West Blot Int Negative (.); Lyme Disease IgG/IgM Antibodie <0.91 ISR (0.00-0.90); Lyme Disease IgM Ab 23 kDa Ban Present (.); Lyme Disease IgM Ab 39 kDa Ban Absent (.); Lyme Disease IgM Ab 41 kDa Ban Present (.); Lyme Disease IgM Ab Quantitati 1.26 index (0.00-0.79); Lyme Disease IgM West Blot Int Positive (.)
== END ==
LOC: M LABDRAW1 07:46
PROVIDERS: ATTEND Family Medicine
DX: R79.89 Other specified abnormal findings of blood chemistry (principal); E07.9 Disorder of thyroid, unspecified

== ENCOUNTER → 2019-06-05 | Outpatient (CLI) | payer MEDICARE, MEDICAID ==
[~2019-06-05] MED LIST changes: -OMEP1CAP73 PO; +OMEP20CA4 PO
[2019-06-05 17:07] LABS: ALBUMIN 3.5 GM/DL (3.2-5.2); ALT/SGPT 19 U/L (12-78); BILIRUBIN,TOTAL 0.3 MG/DL (0.2-1.0); BLOOD UREA NITROGEN 16 MG/DL (7-18); CALCIUM LEVEL 8.8 MG/DL (8.5-10.1); CARBON DIOXIDE LEVEL 25 MEQ/L (21-32); CHLORIDE LEVEL 106 MEQ/L (98-107); CHOLESTEROL LEVEL 207 MG/DL (<200); CHOLESTEROL RISK RATIO 7.392 (<5); CREATININE FOR GFR 1.13 MG/DL (0.70-1.30); GLOMERULAR FILTRATION RATE > 60.0 (>60); GLUCOSE, FASTING 100 MG/DL (70-100); HDL CHOLESTEROL 28 MG/DL (>40); HEMOGLOBIN A1c 6.1 %; LDL CHOLESTEROL 136 MG/DL (<100); NON-HDL-C 179 MG/DL; POTASSIUM SERUM 4.4 MEQ/L (3.5-5.1); SODIUM LEVEL 139 MEQ/L (136-145); TOTAL PROTEIN 7.7 GM/DL (6.4-8.2); TRIGLYCERIDES LEVEL 217 MG/DL (<150)
[2019-06-05 17:10] LABS: MALB URINE SIEMENS 7.4 MG/L; MAU/CREAT RATIO 3.3 MCG/MG (0.0-30.0)
== END ==
LOC: M LAB 15:39
PROVIDERS: ATTEND Family Medicine
DX: E11.9 Type 2 diabetes mellitus without complications (principal)

== ENCOUNTER 2019-08-12 12:06 | Emergency (ER) | payer MEDICARE, MEDICAID ==
[~2019-08-12] VITALS: Ht 182.9 cm; Wt 101.8 kg
[~2019-08-12 12:06] MED LIST changes: +OMEP1CAP73 PO; -OMEP20CA4 PO
[2019-08-12] MEDS ORDERED: NS 1,000 ML IV SCH (12:23)
[2019-08-12] MEDS ORDERED: methylPREDNISolone INJ 125 MG/2 ML VIAL (J2930) IV ONE (12:30)
[2019-08-12] MEDS ORDERED: IPRATROPIUM 0.5MG/ALBUTEROL 2.5MG INH SOL UD 3ML (DUONEB)(J7620) NEB PRN (12:30)
[2019-08-12] MEDS ORDERED: ESCI10TA2 PO (12:36)
[2019-08-12] MEDS ORDERED: PREG150C PO (12:36)
--- NOTE | 2019-08-12 13:00 | REP ---
PA and lateral chest: Comparison is 08/25/2018. There is diffuse bilateral interstitial coarsening, similar to the prior study, compatible with fibrosis. There are no infiltrates or pleural effusions. Cardiac size is normal. The pipo, mediastinum, skeletal structures are unremarkable except for a cervical spine stabilization plate, unchanged. Impression: Chronic interstitial coarsening compatible with fibrosis. No acute cardiopulmonary findings. Electronically Signed by Mina Person MD 08/12/2019 12:52 P
[2019-08-12 13:07] LABS: ABG BASE EXCESS -0.2 (-2.0-2.0); ABG HCO3 25.1 MEQ/L (22.0-26.0); ABG O2 SATURATION 96.6 % (95.0-99.0); ABG PARTIAL PRESSURE CO2 43.6 mmHg (35.0-45.0); ABG PARTIAL PRESSURE O2 83.3 mmHg (75.0-100.0); ABG STANDARD HCO3 24.3 MEQ/L (22.0-26.0); ABG TOTAL CO2 26.4 MEQ/L (22.0-29.0); ABG pH (ARTERIAL) 7.378 UNITS (7.350-7.450)
[2019-08-12 13:10] LABS: BASO % 0.4 % (0.0-1.0); EOS # 0.3 10^3/uL (0.0-0.5); EOS % 2.4 % (0.0-3.0); HEMATOCRIT 41.4 % (42.0-52.0); HEMOGLOBIN 12.5 g/dl (13.5-17.5); LYMPH # 2.2 10^3/uL (1.5-5.0); LYMPH % 21.5 % (24.0-44.0); MEAN CORPUSCULAR HGB CONC 30.2 g/dl (32.0-36.5); MEAN CORPUSCULAR VOLUME 82.6 fl (80.0-96.0); MONO # 0.6 10^3/uL (0.0-0.8); MONO % 5.4 % (0.0-5.0); NEUTROPHILS # 7.2 10^3/uL (1.5-8.5); NEUTROPHILS % 69.8 % (36.0-66.0); PLATELET COUNT, AUTOMATED 226 10^3/uL (150-450); RED BLOOD COUNT 5.01 10^6/uL (4.30-6.10); WHITE BLOOD COUNT 10.3 10^3/uL (4.0-10.0)
[2019-08-12 13:41] LABS: ALBUMIN 3.8 GM/DL (3.2-5.2); ALT/SGPT 18 U/L (12-78); BILIRUBIN,DIRECT 0.1 MG/DL (0.0-0.2); BILIRUBIN,TOTAL 0.4 MG/DL (0.2-1.0); BLOOD UREA NITROGEN 19 MG/DL (7-18); CALCIUM LEVEL 8.4 MG/DL (8.5-10.1); CARBON DIOXIDE LEVEL 27 MEQ/L (21-32); CHLORIDE LEVEL 105 MEQ/L (98-107); CK-MB VALUE MASS 2.4 NG/ML (<3.6); CPK CREATINE PHOSPHOKINASE 193 U/L (39-308); CREATININE FOR GFR 1.31 MG/DL (0.70-1.30); GLOMERULAR FILTRATION RATE > 60.0 (>60); GLUCOSE, FASTING 98 MG/DL (70-100); MB/CK RELATIVE INDEX 1.24 (< OR =4); POTASSIUM SERUM 4.6 MEQ/L (3.5-5.1); SODIUM LEVEL 138 MEQ/L (136-145); TOTAL PROTEIN 7.6 GM/DL (6.4-8.2); TROPONIN I < 0.02 NG/ML (< 0.10)
[2019-08-12 13:42] LABS: INFLUENZA A AMPLIFICATION NEGATIVE (NEGATIVE); INFLUENZA B AMPLIFICATION NEGATIVE (NEGATIVE)
[2019-08-12 13:45] VITALS: BP 114/61
[2019-08-12] MEDS ORDERED: PRED20TA PO (14:07)
[2019-08-12] MEDS ORDERED: PROAAER10 INH (14:07)
--- NOTE | 2019-08-12 21:49 | ECGEPIP ---
[facility] - ED Test Date: 2019-08-12 Pat Name: MISTY SHAY Department: Room: - Gender: Male Program Checker: ROSETTA : 1970 Requested By: CARL MACIAS Order Number: [id number] Reading MD: Elian Lilly Measurements Intervals [place] Rate: 78 P: 42 MD: 167 QRS: -48 QRSD: 118 T: -6 QT: 410 QTc: 469 Interpretive Statements SINUS RHYTHM LEFT AXIS DEVIATION MODERATE INTRAVENTRICULAR CONDUCTION DELAY NONSPECIFIC T-WAVE ABNORMALITY Electronically Signed on 08-12-2019 21:49:02 EST by Elian Lilly
== END 2019-08-12 14:16 | disposition home or self-care (01) ==
LOC: M ED 12:06
DX: J84.10 Pulmonary fibrosis, unspecified (principal); R06.00 Dyspnea, unspecified; I11.0 Hypertensive heart disease with heart failure; J98.4 Other disorders of lung; B19.20 Unspecified viral hepatitis C without hepatic coma; F17.210 Nicotine dependence, cigarettes, uncomplicated; Z88.2 Allergy status to sulfonamides; Z88.5 Allergy status to narcotic agent; Z79.51 Long term (current) use of inhaled steroids; Z79.84 Long term (current) use of oral hypoglycemic drugs; Z79.899 Other long term (current) drug therapy
CPT/HCPCS: 36600; 71046; 80048; 80076; 82550; 82553; 82803; 84484; 85025; 87040; 87077; 87186; 87502; 93005; 93041; 94640; 94760; 96374; 99284; J2930

== ENCOUNTER → 2019-09-11 | Outpatient (REF) | payer MEDICARE, MEDICAID ==
[~2019-09-11] MED LIST changes: +ESCI10TA2 PO; +PRED20TA PO; +PREG150C PO
[2019-09-11 14:19] LABS: BASO % 0.2 % (0.0-1.0); EOS # 0.2 10^3/uL (0.0-0.5); EOS % 1.6 % (0.0-3.0); HEMATOCRIT 43.4 % (42.0-52.0); HEMOGLOBIN 13.7 g/dl (13.5-17.5); LYMPH # 1.5 10^3/uL (1.5-5.0); LYMPH % 14.1 % (24.0-44.0); MEAN CORPUSCULAR HEMOGLOBIN 25.7 pg (27.0-33.0); MEAN CORPUSCULAR HGB CONC 31.6 g/dl (32.0-36.5); MEAN CORPUSCULAR VOLUME 81.4 fl (80.0-96.0); MONO # 0.6 10^3/uL (0.0-0.8); MONO % 5.7 % (0.0-5.0); NEUTROPHILS # 8.3 10^3/uL (1.5-8.5); NEUTROPHILS % 78.1 % (36.0-66.0); PLATELET COUNT, AUTOMATED 282 10^3/uL (150-450); RED BLOOD COUNT 5.33 10^6/uL (4.30-6.10); WHITE BLOOD COUNT 10.6 10^3/uL (4.0-10.0)
[2019-09-11 14:41] LABS: HEMOGLOBIN A1c 6.4 %
[2019-09-11 15:01] LABS: ALBUMIN 3.7 GM/DL (3.2-5.2); ALT/SGPT 22 U/L (12-78); BILIRUBIN,TOTAL 0.6 MG/DL (0.2-1.0); BLOOD UREA NITROGEN 12 MG/DL (7-18); CALCIUM LEVEL 9.2 MG/DL (8.5-10.1); CARBON DIOXIDE LEVEL 25 MEQ/L (21-32); CHLORIDE LEVEL 104 MEQ/L (98-107); CHOLESTEROL LEVEL 191 MG/DL (<200); CHOLESTEROL RISK RATIO 5.787 (<5); CREATININE FOR GFR 1.06 MG/DL (0.70-1.30); GLOMERULAR FILTRATION RATE > 60.0 (>60); GLUCOSE, FASTING 103 MG/DL (70-100); HDL CHOLESTEROL 33 MG/DL (>40); LDL CHOLESTEROL 138 MG/DL (<100); NON-HDL-C 158 MG/DL; POTASSIUM SERUM 4.7 MEQ/L (3.5-5.1); SODIUM LEVEL 137 MEQ/L (136-145); TOTAL PROTEIN 8.1 GM/DL (6.4-8.2); TRIGLYCERIDES LEVEL 99 MG/DL (<150)
== END ==
LOC: M LAB REF 13:16
PROVIDERS: ATTEND Family Medicine
DX: E11.9 Type 2 diabetes mellitus without complications (principal)

== ENCOUNTER → 2019-09-12 | Outpatient (CLI) | payer MEDICARE, MEDICAID ==
--- NOTE | 2019-09-12 15:20 | PFTRPT ---
Site: [facility], [address] [place], [address] ID: [id number] Name: MISTY SHAY Visit Date: 09/12/2019 Second ID: [id number] Referring Doctor: Gin BROOKE, Re Levi Reviewing Doctor: Inocente Perez MD Outpatient Scheduler: Nilton VELASQUEZ, VIKTORIA Age: 48 : 1970 Sex: Male Race: Height: 72.00 Inches Weight: 224.00 Lbs BSA: 2.24 Order IDs: [id number] Requested Test(s): <RESP-PFT.DLCO> Diagnosis: J84.10 test meet the ATS standards for acceptability and repeatability. Review Status: Not Reviewed Pre-Bronch Post-Bronch Pred Actual %Pred Actual %Chng SPIROMETRY FVC (L) 5.40 3.88 71 FEV1 (L) 4.19 3.43 81 FEV1/FVC (%) 78 88 113 FEF 25% (L/sec) 8.28 10.30 124 FEF 50% (L/sec) 5.11 7.12 139 FEF 75% (L/sec) 1.78 2.15 120 FEF 25-75% (L/sec) 3.66 5.51 150 FEF Max (L/sec) 10.28 10.44 101 FIVC (L) 3.91 FIF 50% (L/sec) 4.98 3.50 70 FIF Max (L/sec) 3.85 Expiratory Time (sec) 6.46 Back Extrap Vol (L) 0.15 Time To FEFmax (sec) 0.082 LUNG VOLUMES SVC (L) 5.22 3.97 75 IC (L) 3.58 3.15 87 ERV (L) 1.64 0.82 49 DIFFUSION DLCOunc (ml/min/mmHg) 31.56 12.77 40 DLCOcor (ml/min/mmHg) 31.56 12.53 39 DL/VA (ml/min/mmHg/L) 4.28 2.46 57 VA (L) 7.37 5.10 69 BHT (sec) 10.26 IVC (L) 3.90 TLC (SB) (L) 5.25 BLOOD GASES Hgb (gm/dL) 15.3
== END ==
LOC: M CARPUL 14:44
PROVIDERS: ATTEND Internal Medicine Pulmonary Disease
DX: J84.10 Pulmonary fibrosis, unspecified (principal)

== ENCOUNTER → 2019-12-21 | Outpatient (CLI) | payer MEDICARE ==
--- NOTE | 2019-12-21 15:33 | REP ---
REASON FOR EXAM: History of chronic lung disease. COMPARISON: Multiple, the latest 08/12/2019. There is pulmonary fibrotic change, status quo. No acute patchy parenchymal opacities or pleural effusions have developed. There is no change in the cardiomediastinal silhouette or osseous structures. IMPRESSION: No evidence of significant change. Electronically Signed by Candelario Walsh DO 12/21/2019 05:06 P
== END ==
LOC: M RAD 11:12
PROVIDERS: ATTEND Nurse Practitioner Family
DX: J84.82 Adult pulmonary Langerhans cell histiocytosis (principal)

== ENCOUNTER → 2019-12-22 | Outpatient (REF) | payer MEDICARE, MEDICAID ==
[2019-12-22 13:07] LABS: BASO # 0.1 10^3/uL (0.0-0.2); BASO % 0.4 % (0.0-1.0); EOS # 0.3 10^3/uL (0.0-0.5); EOS % 2.6 % (0.0-3.0); HEMATOCRIT 46.6 % (42.0-52.0); HEMOGLOBIN 14.4 g/dl (13.5-17.5); LYMPH # 3.3 10^3/uL (1.5-5.0); LYMPH % 29.1 % (24.0-44.0); MEAN CORPUSCULAR HEMOGLOBIN 25.1 pg (27.0-33.0); MEAN CORPUSCULAR HGB CONC 30.9 g/dl (32.0-36.5); MEAN CORPUSCULAR VOLUME 81.3 fl (80.0-96.0); MONO % 8.7 % (0.0-5.0); NEUTROPHILS # 6.8 10^3/uL (1.5-8.5); NEUTROPHILS % 58.9 % (36.0-66.0); PLATELET COUNT, AUTOMATED 246 10^3/uL (150-450); RED BLOOD COUNT 5.73 10^6/uL (4.30-6.10); WHITE BLOOD COUNT 11.5 10^3/uL (4.0-10.0)
[2019-12-22 13:32] LABS: ALBUMIN 3.4 GM/DL (3.2-5.2); ALT/SGPT 19 U/L (12-78); BILIRUBIN,TOTAL 0.3 MG/DL (0.2-1.0); BLOOD UREA NITROGEN 16 MG/DL (7-18); CALCIUM LEVEL 9.1 MG/DL (8.5-10.1); CARBON DIOXIDE LEVEL 27 MEQ/L (21-32); CHLORIDE LEVEL 104 MEQ/L (98-107); CHOLESTEROL LEVEL 162 MG/DL (<200); CHOLESTEROL RISK RATIO 4.909 (<5); CREATININE FOR GFR 1.13 MG/DL (0.70-1.30); GLOMERULAR FILTRATION RATE > 60.0 (>56); GLUCOSE, FASTING 97 MG/DL (70-100); HDL CHOLESTEROL 33 MG/DL (>40); LDL CHOLESTEROL 111 MG/DL (<100); NON-HDL-C 129 MG/DL; POTASSIUM SERUM 4.6 MEQ/L (3.5-5.1); SODIUM LEVEL 135 MEQ/L (136-145); TOTAL 25(OH) VITAMIN D 29.6 NG/ML (30.0-100.0); TOTAL PROTEIN 7.6 GM/DL (6.4-8.2); TRIGLYCERIDES LEVEL 88 MG/DL (<150)
[2019-12-22 13:38] LABS: HEMOGLOBIN A1c 6.2 %
== END ==
LOC: M LAB REF 11:58
PROVIDERS: ATTEND Family Medicine
DX: E11.9 Type 2 diabetes mellitus without complications (principal)

== ENCOUNTER → 2020-01-16 | Outpatient (CLI) | payer MEDICARE, MEDICAID ==
[~2020-01-16] MED LIST changes: -AMLO10TA5 PO; +AMLO1TAB25 PO; +KETO10TAB PO; +ROBA750T4 PO
--- NOTE | 2020-01-16 22:58 | REP ---
REASON: Followup Langerhans cell histiocytosis. All priors were reviewed, the latest 01/18/2019. Once again, the lack of intravenous contrast decreases the sensitivity of the exam. There is mediastinal and hilar adenopathy, status quo. There are no pleural or pericardial effusions. There is no change in the appearance of the imaged upper abdomen or imaged osseous structures. Evaluation of the lung durham shows relatively stable appearing fibrotic changes with varicoid and early saccular bronchiectasis throughout, but particularly in the lung bases, and seen in conjunction with early honeycomb lung. These findings are stable not only from the latest prior, but when compared to an older exam of 05/24/2018. There has been, however, significant progression when compared to a much older examination of 03/27/2011. IMPRESSION: Chronic changes, as described above. Electronically Signed by Candelario Walsh DO 01/17/2020 09:25 A
== END ==
LOC: M RAD 10:29
PROVIDERS: ATTEND Nurse Practitioner Family
DX: J84.82 Adult pulmonary Langerhans cell histiocytosis (principal); R59.0 Localized enlarged lymph nodes

== ENCOUNTER → 2020-02-22 | Outpatient (CLI) | payer MEDICARE, MEDICAID ==
[2020-03-28 07:35] LABS: HEMATOCRIT 41.3 % (42.0-52.0); HEMOGLOBIN 12.8 g/dl (13.5-17.5); MEAN CORPUSCULAR HEMOGLOBIN 24.8 pg (27.0-33.0); PLATELET COUNT, AUTOMATED 271 10^3/uL (150-450); RED BLOOD COUNT 5.16 10^6/uL (4.30-6.10); WHITE BLOOD COUNT 15.9 10^3/uL (4.0-10.0)
--- NOTE | 2020-03-29 13:48 | ECGEPIP ---
[facility] Test Date: 2020-02-22 Pat Name: MISTY SHAY Department: Room: - Gender: Male Inoculator: PATRICIA : 1970 Requested By: Mina Cho Order Number: [id number] Reading MD: Rola Burton Measurements Intervals [place] Rate: 79 P: 41 VT: 172 QRS: -27 QRSD: 95 T: 9 QT: 367 QTc: 421 Interpretive Statements SINUS RHYTHM BORDERLINE LEFT AXIS DEVIATION MODERATE T-WAVE ABNORMALITY, CONSIDER ANTERIOR ISCHEMIA ABNORMAL ECG SEE SCANNED DOWNTIME REPORT
[2020-03-31 11:17] LABS: CHLAMYDIA DNA AMPLIFICATION NEGATIVE (NEGATIVE); GC DNA AMPLIFICATION NEGATIVE (NEGATIVE)
[2020-04-04 08:28] LABS: ALBUMIN 3.5 GM/DL (3.2-5.2); ALT/SGPT 16 U/L (12-78); BILIRUBIN,TOTAL 0.7 MG/DL (0.2-1.0); BLOOD UREA NITROGEN 12 MG/DL (7-18); CALCIUM LEVEL 8.9 MG/DL (8.5-10.1); CARBON DIOXIDE LEVEL 28 MEQ/L (21-32); CHLORIDE LEVEL 101 MEQ/L (98-107); CREATININE FOR GFR 1.16 MG/DL (0.70-1.30); GLOMERULAR FILTRATION RATE > 60.0 (>56); GLUCOSE, FASTING 90 MG/DL (70-100); HEPATITIS B SURFACE ANTIGEN NEGATIVE (NEGATIVE); HEPATITIS C VIRUS ABY INDEX > 11.0 INDEX (<0.8); HIV 1&2 SCREEN CENTAUR NEGATIVE (NEGATIVE); POTASSIUM SERUM 4.2 MEQ/L (3.5-5.1); SODIUM LEVEL 134 MEQ/L (136-145); TOTAL PROTEIN 7.6 GM/DL (6.4-8.2)
== END ==
LOC: M LAB 09:54
PROVIDERS: ATTEND Family Medicine
DX: F11.10 Opioid abuse, uncomplicated (principal); F17.218 Nicotine dependence, cigarettes, with other nicotine-induced disorders; I10 Essential (primary) hypertension; E78.2 Mixed hyperlipidemia; F32.9 Major depressive disorder, single episode, unspecified; F41.9 Anxiety disorder, unspecified

== ENCOUNTER 2020-02-24 18:33 | Emergency (ER) | payer MEDICARE ==
[~2020-02-24 18:33] MED LIST changes: -KETO10TAB PO; -ROBA750T4 PO
[2020-02-24] MEDS ORDERED: ACETAMINOPHEN 500 MG TAB As Ordered ONE (19:24)
[2020-02-24] MEDS ORDERED: MORPHINE 4 MG/ML 1ML VIAL/SYRINGE (J2270) ONE (19:24)
[2020-02-24] MEDS ORDERED: ACETAMINOPHEN 500 MG TAB ONE (19:24)
[2020-02-24] MEDS ORDERED: MORPHINE 4 MG/ML 1ML VIAL/SYRINGE (J2270) As Ordered ONE (19:24)
[2020-04-08 20:38] LABS: BASO % 0.3 % (0.0-1.0); EOS # 0.2 10^3/uL (0.0-0.5); EOS % 1.6 % (0.0-3.0); HEMATOCRIT 43.6 % (42.0-52.0); HEMOGLOBIN 13.2 g/dl (13.5-17.5); LYMPH # 2.4 10^3/uL (1.5-5.0); LYMPH % 23.8 % (24.0-44.0); MEAN CORPUSCULAR HEMOGLOBIN 24.5 pg (27.0-33.0); MEAN CORPUSCULAR HGB CONC 30.3 g/dl (32.0-36.5); MONO # 0.7 10^3/uL (0.0-0.8); MONO % 7.4 % (0.0-5.0); NEUTROPHILS # 6.7 10^3/uL (1.5-8.5); NEUTROPHILS % 66.5 % (36.0-66.0); PLATELET COUNT, AUTOMATED 257 10^3/uL (150-450); RED BLOOD COUNT 5.38 10^6/uL (4.30-6.10)
== END 2020-02-24 21:10 | disposition left against medical advice (07) ==
LOC: M ED 18:33
DX: M54.5 Low back pain (principal); R50.9 Fever, unspecified; Z53.9 Procedure and treatment not carried out, unspecified reason; I10 Essential (primary) hypertension; Z79.899 Other long term (current) drug therapy
CPT/HCPCS: 36415; 80047; 85025; 85379; 86140; 87040; 87486; 87581; 87633; 87798; 99285; J2270

== ENCOUNTER 2020-02-29 15:12 | Emergency (ER) | payer MEDICARE ==
[~2020-02-29] VITALS: Ht 182.9 cm; Wt 100.3 kg
[2020-02-29 15:13] VITALS: BP 148/75
[2020-03-01] MEDS ORDERED: KETO10TAB PO (20:32)
[2020-03-01] MEDS ORDERED: ROBA750T4 PO (20:32)
== END 2020-02-29 16:34 | disposition left against medical advice (07) ==
LOC: M ED 15:12
DX: Z53.21 Procedure and treatment not carried out due to patient leaving prior to being seen by health care provider (principal)

== ENCOUNTER 2020-03-01 17:42 | Emergency (ER) | payer MEDICARE, MEDICAID ==
[~2020-03-01] VITALS: Ht 182.9 cm; Wt 100.9 kg
[2020-03-01] MEDS ORDERED: NORCO, ANEXSIA 5/325MG TABLET (HYDROcodone/ACETAMINOPHEN) PO ONE (18:45)
--- NOTE | 2020-03-01 20:01 | REPVR ---
PROCEDURE INFORMATION: Exam: CT Lumbar Spine Without Contrast Exam date and time: 03/01/2020 7:46 PM Age: 49 years old Clinical indication: Injury or trauma; Fall; Initial encounter; Blunt trauma (contusions or hematomas) TECHNIQUE: Imaging protocol: Computed tomography images of the lumbar spine without contrast. Radiation optimization: All CT scans at this facility use at least one of these dose optimization techniques: automated exposure control; mA and/or kV adjustment per patient size (includes targeted exams where dose is matched to clinical indication); or iterative reconstruction. COMPARISON: CR Spine, Lumbosacral, partial 01/18/2019 10:31 AM FINDINGS: Vertebrae: Well corticated fragment at the anterior superior margin of L4 likely the result of unfused ring apophysis or prior trauma. No acute fracture demonstrated. L1-L2: No significant disc protrusion. No severe spinal canal stenosis. No significant neural foraminal narrowing. L2-L3: No significant disc protrusion. No spinal canal stenosis. No neural foraminal narrowing. L3-L4: No significant disc protrusion. No severe spinal canal stenosis. No significant neural foraminal narrowing. L4-L5: There is a moderate to severe central spinal stenosis at L4-L5 secondary to diffuse annular bulging, thickened ligamentum flavum with mild facet joint arthropathy. L5-S1: No significant disc protrusion. No severe spinal canal stenosis. No significant neural foraminal narrowing. Vasculature: The aortoiliac vessels demonstrate mild atherosclerotic calcification. Soft tissues: Unremarkable. IMPRESSION: 1. Moderate to severe central spinal stenosis L4-L5. 2. No acute findings. Electronically signed by: Liang Chavarria On 03/01/2020 20:01:41 PM
[2020-03-01] MEDS ORDERED: KETOROLAC 30 MG/ML 1ML VIAL IM ONE (20:15)
[2020-03-01] MEDS ORDERED: KETO10TAB PO (20:32)
[2020-03-01] MEDS ORDERED: ROBA750T4 PO (20:32)
[2020-03-01 20:44] VITALS: BP 154/74
== END 2020-03-01 20:47 | disposition home or self-care (01) ==
LOC: M ED 17:42
DX: S30.0XXA Contusion of lower back and pelvis, initial encounter (principal); M54.32 Sciatica, left side; M51.36 Other intervertebral disc degeneration, lumbar region; W10.8XXA Fall (on) (from) other stairs and steps, initial encounter; Y92.019 Unspecified place in single-family (private) house as the place of occurrence of the external cause; Z11.59 Encounter for screening for other viral diseases; F17.210 Nicotine dependence, cigarettes, uncomplicated; Z79.899 Other long term (current) drug therapy
CPT/HCPCS: 72131; 96372; 99283; U0002

== ENCOUNTER 2020-03-19 18:04 | Emergency (ER) | payer MEDICARE, MEDICAID ==
[~2020-03-19] VITALS: Ht 182.9 cm; Wt 97.7 kg
[~2020-03-19 18:04] MED LIST changes: +KETO10TAB PO; +ROBA750T4 PO
[2020-03-19 18:08] VITALS: BP 117/81
[2020-03-19] MEDS ORDERED: KETOROLAC 60MG 2ML VIAL IM ONE (20:00)
[2020-03-19] MEDS ORDERED: MORPHINE 10 MG/ML 1ML VIAL (J2270) IM ONE (20:00)
[2020-03-19] MEDS ORDERED: methocarbamoL 750 MG TAB PO ONE (20:00)
== END 2020-03-19 20:23 | disposition left against medical advice (07) ==
LOC: M ED 18:04
DX: M54.5 Low back pain (principal); E11.9 Type 2 diabetes mellitus without complications; I11.9 Hypertensive heart disease without heart failure; E78.5 Hyperlipidemia, unspecified; K21.9 Gastro-esophageal reflux disease without esophagitis; B18.2 Chronic viral hepatitis C; Z79.51 Long term (current) use of inhaled steroids; Z79.899 Other long term (current) drug therapy
CPT/HCPCS: 96372; 99281; J1885; J2270

== ENCOUNTER → 2020-04-03 | Outpatient (CLI) | payer MEDICARE ==
--- NOTE | 2020-04-10 09:25 | REP ---
MRI LUMBAR SPINE WITHOUT CONTRAST HISTORY: Lumbar disc displacement. No comparison MRI study. There is a comparison lumbar spine CT study from March 01, 2020. TECHNIQUE: Patient was quite claustrophobic. Axial and sagittal T1 and T2 weighted scans were obtained with and without fat saturation. MRI FINDINGS: Cortical and medullary bone signal intensity are normal. There is some straightening. Lumbar vertebral heights were observed, and alignment is otherwise normal. The tip of the conus medullaris is normal in position and appearance at L1. There is mild degenerative disc narrowing at T12-L1 and minimal central disc bulging is present at this level. No cord compression is seen. There are degenerative disc changes at L2-3 through L4-5 as well with disc space narrowing and decreased disc space signal intensity. The L1-2 disc level shows no significant finding. Axial and sagittal images at L2-3 demonstrate minimal diffuse disc bulging. No central canal stenosis or focal disc protrusion is seen. No foraminal narrowing is seen. At L3-4, there is diffuse disc bulging effacing the ventral subarachnoid space. Canal size is borderline. Midline AP dimension of the thecal sac at this level is 9.7 mm. No focal disc protrusion is seen. No foraminal narrowing is observed. At L4, there is a limbus vertebra as seen on CT study. There is degenerative disc narrowing at 3-4 and 4-5. Axial and sagittal images at the L4-5 disc space show diffuse disc bulging. There is moderate central canal stenosis at L4-5 as seen on the CT study. The midline AP dimension of the thecal sac at L4-5 is 7.8 mm. No foraminal stenosis is appreciated. There is no evidence of spondylolysis or spondylolisthesis. At L5-S1, there is mild bilateral facet hypertrophy. No focal disc protrusion is seen. No foraminal stenosis is seen. IMPRESSION: Mild central canal stenosis at L4-5. Degenerative disc disease with disc bulging diffusely at 4-5 and 3-4. Minimal disc bulging at L2-3. Limbus vertebra at L4. Straightening. Otherwise negative. MTDD
== END ==
LOC: M RAD 09:02
PROVIDERS: ATTEND Physician Assistant
DX: M51.26 Other intervertebral disc displacement, lumbar region (principal); M48.061 Spinal stenosis, lumbar region without neurogenic claudication; M51.36 Other intervertebral disc degeneration, lumbar region

== ENCOUNTER → 2021-02-12 | Outpatient (CLI) | payer MEDICARE ==
[~2021-02-12] MED LIST changes: +ESCI10TA16 PO; -ESCI10TA2 PO; -LISI40TA PO; +LISI40TA4 PO; -OLAN10TA2 PO; +OLAN1TAB20 PO; +OMEP40CA4 PO; -OMEP40CA97 PO
[2021-02-12 17:29] LABS: BASO % 0.3 % (0.0-1.0); EOS # 0.1 10^3/uL (0.0-0.5); HEMATOCRIT 44.7 % (42.0-52.0); HEMOGLOBIN 13.4 g/dl (13.5-17.5); LYMPH # 2.5 10^3/uL (1.5-5.0); LYMPH % 27.4 % (24.0-44.0); MEAN CORPUSCULAR HEMOGLOBIN 23.9 pg (27.0-33.0); MEAN CORPUSCULAR VOLUME 79.8 fl (80.0-96.0); MONO # 0.8 10^3/uL (0.0-0.8); MONO % 8.8 % (2.0-8.0); NEUTROPHILS # 5.7 10^3/uL (1.5-8.5); NEUTROPHILS % 62.2 % (36.0-66.0); PLATELET COUNT, AUTOMATED 298 10^3/uL (150-450); WHITE BLOOD COUNT 9.2 10^3/uL (4.0-10.0)
[2021-02-12 17:35] LABS: ALBUMIN 3.6 GM/DL (3.2-5.2); ALT/SGPT 18 U/L (12-78); BILIRUBIN,TOTAL 0.3 MG/DL (0.2-1.0); BLOOD UREA NITROGEN 13 MG/DL (7-18); CALCIUM LEVEL 8.8 MG/DL (8.5-10.1); CARBON DIOXIDE LEVEL 28 MEQ/L (21-32); CHLORIDE LEVEL 101 MEQ/L (98-107); CREATININE FOR GFR 1.11 MG/DL (0.70-1.30); GLOMERULAR FILTRATION RATE > 60.0 (>56); GLUCOSE, FASTING 94 MG/DL (70-100); POTASSIUM SERUM 4.3 MEQ/L (3.5-5.1); SODIUM LEVEL 135 MEQ/L (136-145); TESTOSTERONE 536 NG/DL (241-827); TOTAL PROTEIN 7.9 GM/DL (6.4-8.2)
[2021-02-12 17:46] LABS: HEMOGLOBIN A1c 5.7 %
== END ==
LOC: M WUC 10:47
PROVIDERS: ATTEND Family Medicine Addiction Medicine
DX: R79.89 Other specified abnormal findings of blood chemistry (principal); Z79.899 Other long term (current) drug therapy

== ENCOUNTER 2021-02-26 15:50 | Emergency (ER) | payer MEDICARE ==
[~2021-02-26] VITALS: Ht 182.9 cm; Wt 99.2 kg
[2021-02-26 15:50] VITALS: BP 145/95
== END 2021-02-26 16:02 | disposition left against medical advice (07) ==
LOC: M ED 15:50
DX: Z53.21 Procedure and treatment not carried out due to patient leaving prior to being seen by health care provider (principal)

== ENCOUNTER 2021-03-28 15:32 | Emergency (ER) | payer MEDICARE ==
[~2021-03-28] VITALS: Ht 182.9 cm; Wt 96.8 kg
[~2021-03-28 15:32] MED LIST changes: -TEST1.622; +TEST75GE
[2021-03-28 15:33] VITALS: BP 121/64
== END 2021-03-28 18:26 | disposition left against medical advice (07) ==
LOC: M ED 15:32
DX: Z53.21 Procedure and treatment not carried out due to patient leaving prior to being seen by health care provider (principal)

== ENCOUNTER 2021-03-31 00:02 | Inpatient (IN) | payer MEDICARE ==
[~2021-03-31] VITALS: Ht 182.9 cm; Wt 94.9 kg
[2021-03-31] MEDS ORDERED: METH10CO3 PO (00:28)
[2021-03-31] MEDS ORDERED: PANT40TA29 PO (00:28)
[2021-03-31] MEDS ORDERED: TEST1INJ3 IM (00:28)
[2021-03-31] MEDS ORDERED: dexameTHASONE 20MG/5ML VIAL (J1100 PER 1MG) IV ONE (00:55)
[2021-03-31] MEDS: COMBIVENT RESPIMAT 100-20MCG INHALER 4GM INH SCH ×3 (01:15→02:28)
[2021-03-31] MEDS ORDERED: FURO20TA2 PO (01:40)
[2021-03-31] MEDS ORDERED: LISI10TA22 PO (01:40)
[2021-03-31 01:48] LABS: BASO % 0.2 % (0.0-1.0); EOS % 0.1 % (0.0-3.0); HEMATOCRIT 37.4 % (42.0-52.0); HEMOGLOBIN 11.5 g/dl (13.5-17.5); LYMPH # 1.4 10^3/uL (1.5-5.0); MEAN CORPUSCULAR HGB CONC 30.7 g/dl (32.0-36.5); MEAN CORPUSCULAR VOLUME 74.8 fl (80.0-96.0); MONO # 0.7 10^3/uL (0.0-0.8); MONO % 5.3 % (2.0-8.0); NEUTROPHILS # 11.5 10^3/uL (1.5-8.5); NEUTROPHILS % 83.9 % (36.0-66.0); PLATELET COUNT, AUTOMATED 246 10^3/uL (150-450); WHITE BLOOD COUNT 13.7 10^3/uL (4.0-10.0)
--- NOTE | 2021-03-31 01:53 | REPVR ---
PROCEDURE INFORMATION: Exam: XR Chest Exam date and time: 03/31/2021 1:31 AM Age: 50 years old Clinical indication: Cough and dyspnea; Additional info: Dyspnea/cough TECHNIQUE: Imaging protocol: XR of the chest. Views: 1 view. COMPARISON: CT Chest without contrast 01/16/2020 10:46 AM FINDINGS: Lungs: Coarse and prominent interstitium with hazy bilateral pulmonary infiltrates which are increased since the prior study. Pleural spaces: Unremarkable. No pleural effusion. No pneumothorax. Heart/Mediastinum: The heart and mediastinum are unchanged. Bones/joints: Anterior fusion of the cervical spine. IMPRESSION: Coarsened prominent interstitium with hazy bilateral pulmonary infiltrates which are increased since 08/12/2019 and may reflect pulmonary edema and congestive failure overlying COPD. Pneumonia is not excluded. Electronically signed by: Kirby White On 03/31/2021 01:52:59 AM
[2021-03-31 02:35] LABS: ALBUMIN 2.9 GM/DL (3.2-5.2); ALT/SGPT 16 U/L (12-78); BILIRUBIN,DIRECT 0.2 MG/DL (0.0-0.2); BILIRUBIN,TOTAL 0.5 MG/DL (0.2-1.0); BLOOD UREA NITROGEN 13 MG/DL (7-18); CALCIUM LEVEL 7.9 MG/DL (8.5-10.1); CARBON DIOXIDE LEVEL 24 MEQ/L (21-32); CHLORIDE LEVEL 106 MEQ/L (98-107); CK-MB VALUE MASS 1.6 NG/ML (<3.6); CPK CREATINE PHOSPHOKINASE 90 U/L (39-308); CREATININE FOR GFR 1.37 MG/DL (0.70-1.30); GLOMERULAR FILTRATION RATE 58.3 (>56); GLUCOSE, FASTING 97 MG/DL (70-100); MB/CK RELATIVE INDEX 1.78 (< OR =4); NT-PRO BNP 6126 PG/ML (<125); POTASSIUM SERUM 4.3 MEQ/L (3.5-5.1); SODIUM LEVEL 138 MEQ/L (136-145); TOTAL PROTEIN 7.4 GM/DL (6.4-8.2); TROPONIN I < 0.02 NG/ML (< 0.10)
[2021-03-31] MEDS ORDERED: ISOVUE-370 76% 100ML VIAL As Ordered ONE (04:25)
--- NOTE | 2021-03-31 05:02 | REPVR ---
PROCEDURE INFORMATION: Exam: CTA Chest With Contrast Exam date and time: 03/31/2021 4:42 AM Age: 50 years old Clinical indication: Pain; Chest pressure; Additional info: Hypoxia/sob TECHNIQUE: Imaging protocol: Computed tomographic angiography of the chest with contrast. 3D rendering (Not supervised by radiologist): MIP and/or 3D reconstructed images were created by the technologist. Radiation optimization: All CT scans at this facility use at least one of these dose optimization techniques: automated exposure control; mA and/or kV adjustment per patient size (includes targeted exams where dose is matched to clinical indication); or iterative reconstruction. Contrast material: ISO 370; Contrast volume: 75 ml; Contrast route: INTRAVENOUS (IV); COMPARISON: CT ANGIO CHEST 09/13/2017 3:01 PM FINDINGS: Pulmonary arteries: The main pulmonary artery measures 40 mm. No pulmonary embolism is identified. Aorta: The ascending thoracic aorta measures 30 mm. Lungs: Coarse interstitium with scattered bullous and cystic changes and mild bronchiectasis. There are minimal scattered ground-glass infiltrates which are increased or new. Pleural spaces: Unremarkable. No pneumothorax. No pleural effusion. Heart: Unremarkable. No cardiomegaly. No pericardial effusion. Mediastinal space: Minimal hiatal hernia. Lymph nodes: Numerous enlarged mediastinal and bilateral hilar nodes which are slightly increased overall since the prior study. Bones/joints: Anterior fusion of the lower cervical spine. Slight anterior wedge configuration of T11 and to a lesser degree T8 which appear to be chronic and unchanged from the prior study. Soft tissues: Unremarkable. IMPRESSION: 1. Coarse pulmonary interstitium with scattered bullous and cystic changes and mild bronchiectasis which are increased since 09/13/2017. There are also scattered ground-glass infiltrates which are increased or new since the prior study. 2. Mild mediastinal and bilateral hilar adenopathy which is slightly increased overall since the prior study. 3. Enlarged main pulmonary artery measuring 40 mm which may be seen with pulmonary hypertension. 4. Otherwise negative CTA chest. No pulmonary embolism is identified. Electronically signed by: Kirby White On 03/31/2021 05:01:48 AM
[2021-03-31] MEDS ORDERED: ACETAMINOPHEN TAB 650MG DOSE (2X325MG) PO PRN (05:30)
[2021-03-31] MEDS ORDERED: MOM 30ML SUSPENSION UDC PO PRN (05:30)
[2021-03-31] MEDS ORDERED: NS 1,000 ML IV SCH (05:30)
[2021-03-31] MEDS ORDERED: COMBIVENT RESPIMAT 100-20MCG INHALER 4GM INH PRN (05:30)
--- NOTE | 2021-03-31 05:32 | HPEPDOC ---
[facility] Medical History & Physical Date of Admission Mar 31, 2021 Date of Service: Mar 31, 2021 Attending Physician: LETITIA MILLARD MD History and Physical CHIEF COMPLAINT: [sob ] HISTORY OF PRESENT ILLNESS: [This is a 50 y/o male with a pmh of htn, gerd, hep c now resolved, polysubstance abuse on methadone therapy and adult pulmonary langerhan's histiocytosis who presents to our ED on 03/31 with a cc of increasing sob x3 days. Patient states that his symptom began insidiously about 3 days ago and has steadily worsened. Patient states that he has never felt this before and feels as though it is d/t his lung disease but is unsure why it has gotten worse. Patient tells me that other than his breathing, he "feels great." Patient does admit to some recent poor appetite because of his being sob. Patient, at the time of my exam, denies any subjective fevers, chills, chest pain, chest tightness, cough, abd pain, n/v/d/c, pedal edema, dysuria, recent travel. ] PAST MEDICAL HISTORY: 1. [See HPI PAST SURGICAL HISTORY: 1. [Cervical fusion]. 2. [Unspec. b/l wrist surgeries]. 3. [Lung biopsy]. SOCIAL HISTORY: Tobacco use:[Current smoker] ETOH: [Former] Illicit drug use: [Former] FAMILY HISTORY: mother - DM ALLERGIES: Please see below. REVIEW OF SYSTEMS: CONSTITUTIONAL: [Denies fevers, chills]. HEENT: [Denies uri type sx]. CARDIOVASCULAR: [Denies chest pain, palpitations]. RESPIRATORY: [See HPI]. GASTROINTESTINAL: [Denies abd pain, n/v/d/c]. GENITOURINARY: [Denies dysuria]. SKIN: [Denies rash]. MUSCULOSKELETAL: [Denies acute joint pain]. NEUROLOGICAL: [Denies syncope, paresthesias]. ENDOCRINE: [Hx of DM]. HEMATOLOGIC/LYMPHATIC: [Denies hx of vte]. HOME MEDICATIONS: Please see below. PHYSICAL EXAMINATION: VITAL SIGNS: Please see below. GENERAL APPEARANCE: [This is a 50 y/o male who is alert and oriented to all questioning. He does not appear to be in any acute distress]. HEENT: [No mass or lesion. EOMI. No scleral icterus. Nares patent. Oral mucosa dry]. CARDIOVASCULAR: [Tachy rate, regular rhythm. no murmurs, rubs, gallops]. LUNGS: [Very coarse breath sounds with rales in all lung durham]. ABDOMEN: [Soft, nontender]. MUSCULOSKELETAL: [No joint deformity]. EXTREMITIES: [No pedal edema appreciated. Pulses intact. No overlying skin changes]. NEUROLOGICAL: [Speech clear. A+Ox3. No focal deficits]. PSYCHIATRIC: [mood and affect appear appropriate]. LABORATORY DATA: See below. IMAGING: [CXR: FINDINGS: Lungs: Coarse and prominent interstitium with hazy bilateral pulmonary infiltrates which are increased since the prior study. Pleural spaces: Unremarkable. No pleural effusion. No pneumothorax. Heart/Mediastinum: The heart and mediastinum are unchanged. Bones/joints: Anterior fusion of the cervical spine. IMPRESSION: Coarsened prominent interstitium with hazy bilateral pulmonary infiltrates which are increased since 08/12/2019 and may reflect pulmonary edema and congestive failure overlying COPD. Pneumonia is not excluded. CTA Chest: FINDINGS: Pulmonary arteries: The main pulmonary artery measures 40 mm. No pulmonary embolism is identified. Aorta: The ascending thoracic aorta measures 30 mm. Lungs: Coarse interstitium with scattered bullous and cystic changes and mild bronchiectasis. There are minimal scattered ground-glass infiltrates which are increased or new. Pleural spaces: Unremarkable. No pneumothorax. No pleural effusion. Heart: Unremarkable. No cardiomegaly. No pericardial effusion. Mediastinal space: Minimal hiatal hernia. Lymph nodes: Numerous enlarged mediastinal and bilateral hilar nodes which are slightly increased overall since the prior study. Bones/joints: Anterior fusion of the lower cervical spine. Slight anterior wedge configuration of T11 and to a lesser degree T8 which appear to be chronic and unchanged from the prior study. Soft tissues: Unremarkable. IMPRESSION: 1. Coarse pulmonary interstitium with scattered bullous and cystic changes and mild bronchiectasis which are increased since 09/13/2017. There are also scattered ground-glass infiltrates which are increased or new since the prior study. 2. Mild mediastinal and bilateral hilar adenopathy which is slightly increased overall since the prior study. 3. Enlarged main pulmonary artery measuring 40 mm which may be seen with pulmonary hypertension. 4. Otherwise negative CTA chest. No pulmonary embolism is identified. ] MICROBIOLOGY: Please see below. ASSESSMENT: [This is a 50 y/o male with a pmh of htn, gerd, hep c now resolved, polysubstance abuse on methadone therapy and adult pulmonary langerhan's histiocytosis who presents to our ED on 03/31 with a cc of increasing sob x3 days. Patient states that his symptom began insidiously about 3 days ago and has steadily worsened.]. . PLAN: 1. [Hypoxia - Likely d/t community acquired pneumonia i/s/o pulmonary langerhan's h istiocytosis (was previously followed by ) - Patient meeting sepsis criteria with fever, tachycardia, hypoxia, leukocytosis and infiltrates on cta - Will start abx with cefepime q12h - Opting at this time to skip 30cc/kg bolus as patient clinically only slightly dry and has hx of volume overload, current elevated bnp. Will just give maintenance fluids at this time - Patient acutely requiring 4L nasal canula, does not wear o2 at home - Will continue supplemental o2 and titrate to >90 - Smoking cessation education - Will begin steroid therapy d/t underlying pulmonary disease - Combivents as needed - Strongly recommend day team consult pulmonology for assistance in management of complex rare lung disease - The day time team may also consider referral to a specialized center for enrollment in a clinical trial or discussion with the Rehabilitation Medicine Physician about treatment with cladribine or cytarbine - Continuous pulse oximetry and telemetry - Admit to pcu for tx of presumed sepsis d/t cap i/s/o pulmonary langerhan's histiocytosis 2. Hx opioid use - continue methadone 3. HTN - continue lasix, lisinopril 4. GERD - continue protonix DVT prophylaxis - teds and scds]. Vital Signs Vital Signs Date Time Temp Pulse Resp B/P (MAP) Pulse Ox O2 Delivery O2 Flow Rate FiO2 03/31/21 04:17 62 18 93 Nasal Cannula 4.0 03/31/21 02:15 103/66 (78) 03/31/21 00:16 100.1 Laboratory Data Labs 24H Laboratory Tests 2 03/31/21 01:34: Immature Granulocyte % (Auto) 0.5, Neutrophils (%) (Auto) 83.9H, Lymphocytes (%) (Auto) 10.0L, Monocytes (%) (Auto) 5.3, Eosinophils (%) (Auto) 0.1, Basophils (%) (Auto) 0.2, Neutrophils # (Auto) 11.5H, Lymphocytes # (Auto) 1.4L, Monocytes # (Auto) 0.7, Eosinophils # (Auto) 0.0, Basophils # (Auto) 0.0, Nucleated Red Blood Cells % (auto) 0.0, Anion Gap 8, Glomerular Filtration Rate 58.3, Lactic Acid Level 0.7, Calcium Level 7.9L, Total Bilirubin 0.5, Direct Bilirubin 0.2, Aspartate Amino Transf (AST/SGOT) 21, Alanine Aminotransferase (ALT/SGPT) 16, Alkaline Phosphatase 115, Total Creatine Kinase 90, Creatine Kinase MB 1.6, Creatine Kinase MB Relative Index 1.78, Troponin I < 0.02, PB-Pew-T-Type Natriuretic Peptide 6126H, Total Protein 7.4, Albumin 2.9L, Albumin/Globulin Ratio 0.6, Thyroid Stimulating Hormone (TSH) 1.320 CBC/BMP Laboratory Tests 03/31/21 01:34 Microbiology Microbiology 03/31/21 Blood Culture, Received Pending 03/31/21 Blood Culture, Received Pending 03/31/21 Respiratory Virus Panel (PCR) (RICHARD) - Final, Complete Home Medications Scheduled Furosemide (Furosemide) 20 Mg Tablet, 20 MG PO DAILY Lisinopril (Lisinopril) 10 Mg Tablet, 10 MG PO DAILY Methadone HCl (Methadone Intensol) 10 Mg/1 Ml Oral.conc, 135 MG PO DAILY VERIFIED WITH CR[facility]O Multivitamins (Thera M Plus Tablet) 1 Tab Tab, 1 TAB PO DAILY Pantoprazole Sodium (Pantoprazole Sodium) 40 Mg Tablet.dr, 40 MG PO DAILY Testosterone Cypionate (Testosterone Cypionate) 100 Mg/1 Ml Vial, 100 MG IM QWEEK TUESDAYS Scheduled PRN Albuterol Sulfate (Proair Hfa) 108 Mcg/Act Aer, 2 PUFFS INH QID PRN for SHORTNESS OF BREATH Pregabalin (Pregabalin) 150 Mg Capsule, 150 MG PO BID PRN for PAIN LEVEL 1-4 Allergies Coded Allergies: No Known Allergies (Unverified , 03/01/20) A-FIB/CHADSVASC A-FIB History Current/History of A-Fib/PAF?: No BROCK ADAMS Mar 31, 2021 05:32 LETITIA MILLARD MD Mar 31, 2021 06:27
[2021-03-31] MEDS ORDERED: CEFEPIME HCL 2 GM in D5W MINI-BAG PLUS 50 ML IV SCH (06:00)
--- NOTE | 2021-03-31 06:56 | ECGEPIP ---
[facility] - ED Test Date: 2021-03-31 Pat Name: MISTY SHAY Department: Room: 01[facility] Gender: Male Office Service Coordinator: DELIA : 1970 Requested By: RENALDO Lewis Order Number: [id number] Reading MD: Renaldo Clayton Measurements Intervals [place] Rate: 68 P: 29 DC: 166 QRS: -53 QRSD: 100 T: -20 QT: 458 QTc: 487 Interpretive Statements Normal sinus rhythm Pulmonary disease pattern Left anterior fascicular block ST & Marked T wave abnormality- more pronounced than tracing done 02-22-20 Prolonged QTc interval Electronically Signed on 03-31-2021 6:55:55 EDT by Renaldo Clayton
[2021-03-31 08:00] VITALS: BP 133/79
[2021-03-31] MEDS ORDERED: HOME MED LIST COMPLETE! XX SCH (08:15)
[2021-03-31] MEDS: predniSONE 20 MG TAB PO SCH (09:28)
[2021-03-31] MEDS: METHADONE 10 MG TAB (S0109) PO SCH (09:29)
[2021-03-31 09:48] VITALS: BP 142/75
--- NOTE | 2021-03-31 11:21 | CR.PDOC ---
General Date of Consultation: Mar 31, 2021 Attending Physician: MARIA C FERGUSON MD Consultation REASON FOR CONSULTATION/CHIEF COMPLAINT: Worsening shortness of breathe and PMHx of Langerhan's histiocytosis HISTORY OF PRESENT ILLNESS: This is a 50 year-old male with PMHx of HTN, GERD, hx of Hepatitis C, hx of heroin abuse on methadone therapy and pulmonary Langerhan's Histiocytosis presenting to the ED on 03/31 with progressive increasing shortness of breath for the past 3 days. Patient states that since his diagnosis of Langerhan's Histiocytosis, he has had constant NAGY. In the past 3 days however he had worsening SOB, he had to use his inhalers with no relief and borrowed his mother's home oxygen. Also states that he has cough and congestion for the past 3 days which is changed from baseline. Is unable to easily bring up any mucous. Denies fevers or chills, no chest pain. Denies increased LE edema. Denies any recent respiratory infection, denies hx of frequent bronchitis. Patient was recently discharged from [facility] pulmonary with Dr. Greenfield; was following up there for his Pulmonary Langerhan's Histiocytosis and abnormal CT scans. In the ED he was given steroids and antibiotics. Patient was also hypoxic and placed on 4L NC. Patient was seen today at bedside rounds. Had no acute events overnight and no new complaints this morning. He states that his SOB has improved, continues to have some cough. ALLERGIES: Please see below. HOME MEDICATIONS: Please see below. PAST MEDICAL HISTORY: 1. Langerhan's Histiocytosis 2. HTN 3. GERD 4. Hx of Hepatitis C 5. Hx of heroin abuse on methadone therapy 6. SHAWN; noncomplaint on CPAP PAST SURGICAL HISTORY: 1. Lung biopsy - multiple wedge resections 2018 2. Cervical fusion 3. s/p knee surgery 4. s/p throat surgery 5. b/l wrist surgeries - Kienbock's disease 6. chronic diastolic CHF (formerly managed by Dr. Burton) 7. Bipolar disorder and anxiety 8. Osteoarthritis 9. Hx of alcohol abuse 10. Hx of heroin abuse on methadone therapy 11. Tobacco use disorder 12. Hx of right apical pneumothorax - chest tube x 2 (07/2018) 13. Chronic lower back pain & Sciatica 14. 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 Tobacco use: currently smoking 4-5 cigarettes/day ETOH: past alcohol use Illicit drug use: past heroin use; currently on methadone Travel: denies Sick contacts: denies REVIEW OF SYSTEMS: CONSTITUTIONAL: denies subjective fever, chills, night sweats HEENT: + cough CARDIOVASCULAR: denies chest pain, palpitations RESPIRATORY: + cough, shortness of breath GENITOURINARY: denies dysuria MUSCULOSKELETAL: denies leg swelling GASTROINTESTINAL: denies abdominal pain, n/v/d, constipation SKIN: denies any new lesions NEUROLOGICAL: denies numbness or tingling PHYSICAL EXAMINATION: VITAL SIGNS: Please see below. GENERAL APPEARANCE: well appearing; in no acute distress; AAO x3 HEENT: EOMI, trachea midlines; no cervical LAD; uvula midline; moist mucous membranes RESPIRATORY: Fine crackles bilaterally; good air entry bilaterally CARDIOVASCULAR: regular rate and rhythm; S1 and S2 heard; no murmurs, rubs or gallops noted ABDOMEN: normoactive bowel sounds; rounded, soft, nondistended, no tenderness to palpation EXTREMITIES: no pedal edema bilaterally; has clubbing on all fingers NEUROLOGICAL: CN II-XII grossly intact; no focal neurologic deficits noted PSYCHIATRIC: appropriate mood and affect LABORATORY DATA: Please see below. IMAGING: CXR 03/31: "Coarsened prominent interstitium with hazy bilateral pulmonary infiltrates which are increased since 08/12/2019 and may reflect pulmonary edema and congestive failure overlying COPD. Pneumonia is not excluded." CTA 03/31: "1. Coarse pulmonary interstitium with scattered bullous and cystic changes and mild bronchiectasis which are increased since 09/13/2017. There are also scattered ground-glass infiltrates, more perihilar, which are increased or new since the prior study. 2. Mild mediastinal and bilateral hilar adenopathy which is slightly increased overall since the prior study. 3. Enlarged main pulmonary artery measuring 40 mm which may be seen with pulmonary hypertension. 4. Otherwise negative CTA chest. No pulmonary embolism is identified." ASSESSMENT/PLAN: This is a 50 year-old male with PMHx of HTN, GERD, hx of Hepatitis C, hx of heroin abuse on methadone therapy and pulmonary Langerhan's Histiocytosis presenting to the ED on 03/31 with progressive increasing shortness of breath for the past 3 days concerning for Acute Hypoxemic Respiratory Failure likely 2/2 to worsening interstitial lung disease, possible component of pulmonary edema and CAP. Acute hypoxemic respiratory failure: Likely some chronic component 2/2 worsening smoking related interstitial lung disease with ongoing smoking and hx of biopsy proven [facility]. Patient also with possible acute component of pulmonary edema with new GGO in perihilar distribution and increased interlobular septal thickening with elevated BNP. Patient also had fever and leukocytosis so possible CAP as cause of increased GGO - Patient was given cefepime initially. would change abx to cover for atypical organisms and change to coverage for CAP. start ceftriaxone and doxycycline - d/c IVF NS @125 cc/hr - c/w supplemental O2 to maintain > 90% - c/w combivent inhaler - start lasix 40mg IV daily for now, monitor I/O. Patient was on torsemide 20mg po as outpatient. reports prior hx of abdominal swelling/distention, prior hx of hep C. - start PO prednisone 40mg daily for ILD - Smoking cessation education Possible Community Acquired Pneumonia - start ceftriaxone and doxycycline - pending MRSA PCR - pending sputum culture - pending legionella and strep urine antigens - f/u procalcitonin to aid in de-escalation of abx Prior hx of biopsy proven [facility], ongoing smoking with evidence of progressive now more fibrotic smoking related interstitial lung disease - used to f/w Dr. Gin DC from pulmonary practice. Will need to f/u with another group on discharge. - smoking cessation counselling - Evidence of pulmonary hypertension on imaging, likely contributing to pulmonary edema. May be 2/2 to group 3, hx also of SHAWN noncompliant with CPAP. Would get ECHO. Hx opioid use - c/w home methadone - start colace for prn constipation DVT prophylaxis - Heparin Code status Full Code Vital Signs/I&O Vital Signs Date Time Temp Pulse Resp B/P (MAP) Pulse Ox O2 Delivery O2 Flow Rate FiO2 03/31/21 09:48 142/75 (97) 03/31/21 08:00 97.7 61 30 Nasal Cannula 4.0 03/31/21 06:47 98 Laboratory Data Labs 24H Laboratory Tests 2 03/31/21 01:20: Procalcitonin <0.05 03/31/21 01:34: Immature Granulocyte % (Auto) 0.5, Neutrophils (%) (Auto) 83.9H, Lymphocytes (%) (Auto) 10.0L, Monocytes (%) (Auto) 5.3, Eosinophils (%) (Auto) 0.1, Basophils (%) (Auto) 0.2, Neutrophils # (Auto) 11.5H, Lymphocytes # (Auto) 1.4L, Monocytes # (Auto) 0.7, Eosinophils # (Auto) 0.0, Basophils # (Auto) 0.0, Nucleated Red Blood Cells % (auto) 0.0, Anion Gap 8, Glomerular Filtration Rate 58.3, Lactic Acid Level 0.7, Calcium Level 7.9L, Total Bilirubin 0.5, Direct Bilirubin 0.2, Aspartate Amino Transf (AST/SGOT) 21, Alanine Aminotransferase (ALT/SGPT) 16, Alkaline Phosphatase 115, Total Creatine Kinase 90, Creatine Kinase MB 1.6, Crea monica Kinase MB Relative Index 1.78, Troponin I < 0.02, UA-Dlz-[id number]-Type Natriuretic Peptide 6126H, Total Protein 7.4, Albumin 2.9L, Albumin/Globulin Ratio 0.6, Thyroid Stimulating Hormone (TSH) 1.320 CBC/BMP Laboratory Tests 03/31/21 01:34 Microbiology Microbiology 03/31/21 Blood Culture, Received Pending 03/31/21 Blood Culture, Received Pending 03/31/21 Respiratory Virus Panel (PCR) (RICHARD) - Final, Complete Allergies Coded Allergies: No Known Allergies (Unverified , 03/01/20) Home Medications Scheduled Furosemide (Furosemide) 20 Mg Tablet, 20 MG PO DAILY, (Reported) Lisinopril (Lisinopril) 10 Mg Tablet, 10 MG PO DAILY, (Reported) Methadone HCl (Methadone Intensol) 10 Mg/1 Ml Oral.conc, 135 MG PO DAILY, (Reported) VERIFIED WITH [facility] Multivitamins (Thera M Plus Tablet) 1 Tab Tab, 1 TAB PO DAILY, (Reported) Pantoprazole Sodium (Pantoprazole Sodium) 40 Mg Tablet.dr, 40 MG PO DAILY, (Reported) Testosterone Cypionate (Testosterone Cypionate) 100 Mg/1 Ml Vial, 100 MG IM QWEEK, (Reported) TUESDAYS Scheduled PRN Albuterol Sulfate (Proair Hfa) 108 Mcg/Act Aer, 2 PUFFS INH QID PRN for SHORTNESS OF BREATH, (Reported) Pregabalin (Pregabalin) 150 Mg Capsule, 150 MG PO BID PRN for PAIN LEVEL 1-4, (Reported) GME ATTESTATION GME ATTESTATION My faculty preceptor for this patient encounter was physically present during the encounter and was fully available. All aspects of the patient interview, examination, medical decision making process, and medical care plan development were reviewed and approved by the faculty preceptor. The faculty preceptor is aware and concurs with the plan as stated in the body of this note and will attest to such by his/her cosignature. Holly Boogie DO Mar 31, 2021 10:49 MARIA C FERGUSON MD Apr 01, 2021 08:17
[2021-03-31] MEDS ORDERED: DOCUSATE SODIUM 100MG CAPSULE PO PRN (11:25)
[2021-03-31 12:00] VITALS: BP 138/87
[2021-03-31] MEDS ORDERED: cefTRIAXone SOD 2 GM in D5W MINI-BAG PLUS 50 ML IV SCH (13:00)
[2021-03-31] MEDS: DOXYCYCLINE HYCLATE 100MG TABLET PO SCH ×2 (13:57→20:31)
[2021-03-31] MEDS: FUROSEMIDE 40MG/4ML VIAL (J1940) IV SCH (13:58)
--- NOTE | 2021-03-31 14:58 | IPNPDOC ---
Text Note Date of Service The patient was seen on 03/31/21. NOTE SUBJECTIVE: -No acute complaints overnight, requesting his methadone this AM OBJECTIVE: VITAL SIGNS: Please see below. GENERAL APPEARANCE: NAD HEENT: NCAT, EOMI, MMM CARDIOVASCULAR: RRR, no m/r/g LUNGS: Continues to be coarse with diffuse crackles ABDOMEN: Normoactive bowel sounds, soft, NTND EXTREMITIES: No pedal edema appreciated. Pulses intact. No overlying skin change s NEUROLOGICAL: Speech clear. A+Ox3. No focal deficits LABORATORY DATA: WBC 13.7 hgb 11.5 platelets 246 na 138 K 4.3 Cr 1.37 IMAGING: CXR: Lungs: Coarse and prominent interstitium with hazy bilateral pulmonary infiltrates which are increased since the prior study. Pleural spaces: Unremarkable. No pleural effusion. No pneumothorax. Heart/Mediastinum: The heart and mediastinum are unchanged. Bones/joints: Anterior fusion of the cervical spine. IMPRESSION: Coarsened prominent interstitium with hazy bilateral pulmonary infiltrates which are increased since 08/12/2019 and may reflect pulmonary edema and congestive failure overlying COPD. Pneumonia is not excluded. CTA Chest: Pulmonary arteries: The main pulmonary artery measures 40 mm. No pulmonary embolism is identified. Aorta: The ascending thoracic aorta measures 30 mm. Lungs: Coarse interstitium with scattered bullous and cystic changes and mild bronchiectasis. There are minimal scattered ground-glass infiltrates which are increased or new. Pleural spaces: Unremarkable. No pneumothorax. No pleural effusion. Heart: Unremarkable. No cardiomegaly. No pericardial effusion. Mediastinal space: Minimal hiatal hernia. Lymph nodes: Numerous enlarged mediastinal and bilateral hilar nodes which are slightly increased overall since the prior study. Bones/joints: Anterior fusion of the lower cervical spine. Slight anterior wedge configuration of T11 and to a lesser degree T8 which appear to be chronic and unchanged from the prior study. Soft tissues: Unremarkable. IMPRESSION: 1. Coarse pulmonary interstitium with scattered bullous and cystic changes and mild bronchiectasis which are increased since 09/13/2017. There are also scattered ground-glass infiltrates which are increased or new since the prior study. 2. Mild mediastinal and bilateral hilar adenopathy which is slightly increased overall since the prior study. 3. Enlarged main pulmonary artery measuring 40 mm which may be seen with pulmonary hypertension. 4. Otherwise negative CTA chest. No pulmonary embolism is identified. ] MICROBIOLOGY: Please see below. ASSESSMENT: 50 y/o M with a pmh of htn, gerd, HCV s/p treatment, polysubstance abuse on methadone therapy and adult pulmonary langerhan's histiocytosis who presents to our ED on 03/31 with a cc of increasing sob x3 days and admitted for presumed CAP with exacerbation of his Langerhans with acute hypoxemic respiratory failure. . PLAN: Acute hypoxemic respiratory failure: Likely 2/2 community acquired pneumonia i/s/o pulmonary langerhan's histiocytosis (was previously followed by ) - Patient met sepsis criteria with fever, tachycardia, hypoxemia, leukocytosis and GGOs on cta - Switched from cefepime to ceftriaxone by pulm - Continue supplemental Or, to goal >89% - Smoking cessation education - Pulm consulted, continue the empiric steroid therapy at pred 40 QD - Combivent Presumed CAP -empiric cefepime -MRSA PCR -sputum culture -legionella and strep urine antigens -f/u procalcitonin Langerhans histiocytosis: Likely in exacerbation i/s/o CAP and continued smoking -used to f/w Dr. Greenfield, will be seen by Dr. Power in consult today -smoking cessation counselling -tx CAP as detailed above -steroids as noted above Hx opioid use - continue methadone HTN - continue lasix, lisinopril GERD - continue protonix DVT prophylaxis - teds and scds, lovenox VS,Fishbone, I+O VS, Fishbone, I+O Laboratory Tests 03/31/21 01:34 Vital Signs Date Time Temp Pulse Resp B/P (MAP) Pulse Ox O2 Delivery O2 Flow Rate FiO2 03/31/21 06:47 98.1 62 16 115/76 (89) 98 Nasal Cannula 4.0 REMIGIO LANDRUM MD Mar 31, 2021 08:32
[2021-03-31] MEDS: MULTIVITAMINS/MINERALS THERAP 1 TAB PO SCH (15:52)
[2021-03-31] MEDS: PANTOPRAZOLE 40MG TAB (PROTONIX) PO SCH (15:52)
[2021-03-31 16:00] VITALS: BP 151/81
[2021-03-31] MEDS ORDERED: SLF 3 ML SYR IV PRN (16:10)
[2021-03-31 20:00] VITALS: BP 130/60
[2021-03-31] MEDS: SLF 3 ML SYR IV SCH (20:31)
[2021-04-01] VITALS (7 sets, daily range): BP systolic 122–146; BP diastolic 68–79
[2021-04-01] MEDS: SLF 3 ML SYR IV SCH ×3 (05:14→20:54)
[2021-04-01 06:11] LABS: HEMATOCRIT 41.3 % (42.0-52.0); HEMOGLOBIN 12.5 g/dl (13.5-17.5); MEAN CORPUSCULAR HEMOGLOBIN 22.9 pg (27.0-33.0); MEAN CORPUSCULAR HGB CONC 30.3 g/dl (32.0-36.5); MEAN CORPUSCULAR VOLUME 75.5 fl (80.0-96.0); PLATELET COUNT, AUTOMATED 236 10^3/uL (150-450); RED BLOOD COUNT 5.47 10^6/uL (4.30-6.10); WHITE BLOOD COUNT 12.2 10^3/uL (4.0-10.0)
[2021-04-01 06:33] LABS: ALBUMIN 2.7 GM/DL (3.2-5.2); ALT/SGPT 16 U/L (12-78); BILIRUBIN,TOTAL 0.4 MG/DL (0.2-1.0); BLOOD UREA NITROGEN 13 MG/DL (7-18); CALCIUM LEVEL 8.9 MG/DL (8.5-10.1); CARBON DIOXIDE LEVEL 27 MEQ/L (21-32); CHLORIDE LEVEL 108 MEQ/L (98-107); CREATININE FOR GFR 1.16 MG/DL (0.70-1.30); GLOMERULAR FILTRATION RATE > 60.0 (>56); GLUCOSE, FASTING 80 MG/DL (70-100); MAGNESIUM LEVEL 2.1 MG/DL (1.8-2.4); SODIUM LEVEL 140 MEQ/L (136-145); TOTAL PROTEIN 8.2 GM/DL (6.4-8.2)
[2021-04-01] MEDS: FUROSEMIDE 40MG/4ML VIAL (J1940) IV SCH (08:52)
[2021-04-01] MEDS: PANTOPRAZOLE 40MG TAB (PROTONIX) PO SCH (08:53)
[2021-04-01] MEDS: DOXYCYCLINE HYCLATE 100MG TABLET PO SCH ×2 (08:53→20:54)
[2021-04-01] MEDS: predniSONE 20 MG TAB PO SCH (08:53)
[2021-04-01] MEDS: METHADONE 10 MG TAB (S0109) PO SCH (08:54)
[2021-04-01] MEDS ORDERED: FUROSEMIDE 20 MG TAB PO SCH (09:00)
[2021-04-01] MEDS ORDERED: INFLUENZA QUADRIVALENT PF VACCINE 0.5ML SYRINGE IM ONE (09:00)
--- NOTE | 2021-04-01 09:29 | IPNPDOC ---
Date Seen The patient was seen on 04/01/21. Progress Note SUBJECTIVE: Patient is a 50-year-old male with his is a 50 year-old male with PMHx of HTN, GERD, hx of Hepatitis C, hx of heroin abuse on methadone therapy and pulmonary Langerhan's Histiocytosis presenting to the ED on 03/31 with progressive increasing shortness of breath for the past 3 days. Patient was seen at bedside this morning. He had no acute events overnight and has no acute complaints this morning. States that his breathing is better and that he is bringing some phlegm and continues to have cough. Denies fever, chills, night sweats, chest pain, palpitations, abdominal pain, n/v/d, swelling in legs. OBJECTIVE PHYSICAL EXAMINATION: VITAL SIGNS: Please see below. GENERAL: AAOx3; well appearing; in no acute distress HEENT: EOMI, trachea midline; no cervical LAD; uvula midline; moist mucous membranes CARDIOVASCULAR: regular rate and rhythm; S1 and S2 heard; no murmurs, rubs or gallops noted RESPIRATORY: Fine crackles bilaterally, good air entry bilaterally; no accessory muscle use ABDOMINAL: normoactive bowel sounds; rounded, soft, nondistended, no tenderness to palpation EXTREMITIES: no pedal edema bilaterally; has clubbing on all fingers NEUROLOGICAL: CN II-XII grossly intact; no focal neurologic deficits noted PSYCHIATRIC: appropriate mood and affect LABORATORY DATA, IMAGING STUDIES, MICROBIOLOGY: Please see below. IMAGING: CXR 03/31: "Coarsened prominent interstitium with hazy bilateral pulmonary infiltrates which are increased since 08/12/2019 and may reflect pulmonary edema and congestive failure overlying COPD. Pneumonia is not excluded." CTA 03/31: "1. Coarse pulmonary interstitium with scattered bullous and cystic changes and mild bronchiectasis which are increased since 09/13/2017. There are also scattered ground-glass infiltrates, more perihilar, which are increased or new since the prior study. 2. Mild mediastinal and bilateral hilar adenopathy which is slightly increased overall since the prior study. 3. Enlarged main pulmonary artery measuring 40 mm which may be seen with pulmonary hypertension. 4. Otherwise negative CTA chest. No pulmonary embolism is identified." ASSESSMENT AND PLAN: This is a 50 year-old male with PMHx of HTN, GERD, hx of Hepatitis C, hx of heroin abuse on methadone therapy and pulmonary Langerhan's Histiocytosis presenting to the ED on 03/31 with progressive increasing shortness of breath for the past 3 days concerning for Acute Hypoxemic Respiratory Failure likely 2/2 to worsening interstitial lung disease, possible component of pulmonary edema and CAP. PROBLEMS: Acute hypoxemic respiratory failure - likely some chronic component 2/2 worsening smoking related ILD with ongoing smoking and hx of biopsy proven PLCH - possible acute component of pulmonary edema with new ground glass opacities in perihilar distribution and increased interlobular septal thickening with elevated BNP; also had fever and leukocytosis so possible CAP - Procalcitonin negative. continue Doxycycline for total 7 day course for atypical coverage - d/c ceftriaxone - d/c IVF - c/w supplemental O2 to maintain > 90%; will try to ween down his need for O2, may need O2 with ambulation - c/w combivent inhaler - keep patient on 1 more day of IV lasix 40mg; monitor I/O; will restart PO home torsemide 20mg after as pt reports prior hx of abdominal swelling/distention and prior hx of hep C - c/w PO prednisone 40mg daily for ILD for the next 7 days - Smoking cessation education Possible Community Acquired Pneumonia - continue Doxycycline for 7 more days - MRSA PCR negative - sputum cx: mod gram + cocci in pairs; mod gram + rods; few gram - rods --> likely contaminants; will wait for final cx read - blood cx: prelim negative for growths - pending legionella and strep urine antigens - procalcitonin <0.05; will deescalate abx from ceftriaxone and doxycycline to just doxycycline Prior hx of biopsy proven PLCH, ongoing smoking with evidence of progressive now more fibrotic smoking related interstitial lung disease - used to f/w Dr. Gin DC from pulmonary practice. Will need to f/u with another group on discharge. - smoking cessation counselling - Evidence of pulmonary hypertension on imaging; likely contributing to pulmonary edema; likely 2/2 to group 3 pulmonary HTN, hx also of SHAWN noncompliant with CPAP -> pending Echocardiogram Hx opioid use - c/w home methadone - start colace for prn constipation DVT prophylaxis - Heparin Code status Full Code. VS, I&O, 24H, Fishbone Vital Signs/I&O Vital Signs Date Time Temp Pulse Resp B/P (MAP) Pulse Ox O2 Delivery O2 Flow Rate FiO2 04/01/21 08:53 137/78 04/01/21 07:32 97.9 53 17 97 Nasal Cannula 4.0 I&O- Last 24 Hours up to 6 AM 04/01/21 05:59 Intake Total 950 ml Output Total 550 ml Balance 400 ml Laboratory Data 24H LABS Laboratory Tests 2 03/31/21 11:31: Methicillin-Resist S.aureus DNA PCR NOT DETECTED 03/31/21 15:40: 04/01/21 05:24: Nucleated Red Blood Cells % (auto) 0.0, Anion Gap 5L, Glomerular Filtration Rate > 60.0, Calcium Level 8.9, Magnesium Level 2.1, Total Bilirubin 0.4, Aspartate Amino Transf (AST/SGOT) 14, Alanine Aminotransferase (ALT/SGPT) 16, Alkaline Phosphatase 104, Total Protein 8.2, Albumin 2.7L, Albumin/Globulin Ratio 0.5 CBC/BMP Laboratory Tests 04/01/21 05:24 Microbiology Microbiology 03/31/21 Gram Stain - Final, Resulted 03/31/21 Sputum Culture, Resulted Pending 03/31/21 Blood Culture - Preliminary, Resulted No growth after 24 hours . All specim... 03/31/21 Blood Culture - Preliminary, Resulted No growth after 24 hours . All specim... 03/31/21 Respiratory Virus Panel (PCR) ([facility]) - Final, Complete GME ATTESTATION GME ATTESTATION My faculty preceptor for this patient encounter was physically present during the encounter and was fully available. All aspects of the patient interview, examination, medical decision making process, and medical care plan development were reviewed and approved by the faculty preceptor. The faculty preceptor is aware and concurs with the plan as stated in the body of this note and will attest to such by his/her cosignature. ATTENDING NOTE I, Maria C Power, conducted an independent examination and history of the patient and agree with the plan as detailed by resident and edited where necessary Holly Boogie DO Apr 01, 2021 09:28 MARIA C POWER MD Apr 01, 2021 18:24
[2021-04-01] MEDS: MULTIVITAMINS/MINERALS THERAP 1 TAB PO SCH (11:22)
--- NOTE | 2021-04-01 12:01 | IPNPDOC ---
Text Note Date of Service The patient was seen on 04/01/21. NOTE SUBJECTIVE: -No acute complaints overnight -Now on 3L NC OBJECTIVE: VITAL SIGNS: Please see below. GENERAL APPEARANCE: NAD HEENT: NCAT, EOMI, MMM CARDIOVASCULAR: RRR, no m/r/g LUNGS: Continues to be coarse with diffuse crackles ABDOMEN: Normoactive bowel sounds, soft, NTND EXTREMITIES: No pedal edema appreciated. Pulses intact. No overlying skin changes NEUROLOGICAL: Speech clear. A+Ox3. No focal deficits LABORATORY DATA: Reviewed Cr now 1.16 IMAGING: CXR: Lungs: Coarse and prominent interstitium with hazy bilateral pulmonary infiltrates which are increased since the prior study. Pleural spaces: Unremarkable. No pleural effusion. No pneumothorax. Heart/Mediastinum: The heart and mediastinum are unchanged. Bones/joints: Anterior fusion of the cervical spine. IMPRESSION: Coarsened prominent interstitium with hazy bilateral pulmonary infiltrates which are increased since 08/12/2019 and may reflect pulmonary edema and congestive failure overlying COPD. Pneumonia is not excluded. CTA Chest: Pulmonary arteries: The main pulmonary artery measures 40 mm. No pulmonary embolism is identified. Aorta: The ascending thoracic aorta measures 30 mm. Lungs: Coarse interstitium with scattered bullous and cystic changes and mild bronchiectasis. There are minimal scattered ground-glass infiltrates which are increased or new. Pleural spaces: Unremarkable. No pneumothorax. No pleural effusion. Heart: Unremarkable. No cardiomegaly. No pericardial effusion. Mediastinal space: Minimal hiatal hernia. Lymph nodes: Numerous enlarged mediastinal and bilateral hilar nodes which are slightly increased overall since the prior study. Bones/joints: Anterior fusion of the lower cervical spine. Slight anterior wedge configuration of T11 and to a lesser degree T8 which appear to be chronic and unchanged from the prior study. Soft tissues: Unremarkable. IMPRESSION: 1. Coarse pulmonary interstitium with scattered bullous and cystic changes and mild bronchiectasis which are increased since 09/13/2017. There are also scattered ground-glass infiltrates which are increased or new since the prior study. 2. Mild mediastinal and bilateral hilar adenopathy which is slightly increased overall since the prior study. 3. Enlarged main pulmonary artery measuring 40 mm which may be seen with pulmonary hypertension. 4. Otherwise negative CTA chest. No pulmonary embolism is identified. ] MICROBIOLOGY: Please see below. ASSESSMENT: 50 y/o M with a pmh of htn, gerd, HCV s/p treatment, polysubstance abuse on methadone therapy and adult pulmonary langerhan's histiocytosis who presents to our ED on 03/31 with a cc of increasing sob x3 days and admitted for presumed CAP with exacerbation of his Langerhans with acute hypoxemic respiratory failure. . PLAN: Acute hypoxemic respiratory failure: Likely 2/2 community acquired pneumonia i/s/o pulmonary langerhan's histiocytosis (was previously followed by ) - Patient met sepsis criteria with fever, tachycardia, hypoxemia, leukocytosis and GGOs on cta - Switched from cefepime to ceftriaxone/doxy by pulm on 03/31 - Continue supplemental Or, to goal >89% - Smoking cessation education - Pulm consulted, continue the empiric steroid therapy at pred 40 QD, started him on lasix given that he had received fluids from the admitting team - Combivent - Pending TTE Presumed CAP -continue ceftriaxone/doxy -MRSA PCR negative -sputum culture pending -legionella and strep urine antigens pending -procalcitonin negative Langerhans histiocytosis: Likely in exacerbation i/s/o continued smoking -used to f/w Dr. Greenfield, being seen by Dr. Power in consult -smoking cessation counselling -Empiric tx of presumed CAP as detailed above, though procal is negative -steroids as noted above CHF: HFpEF? on baseline loop diuretic -pending TTE -continue lasix 40 QD IV per pulm Hx opioid use - continue methadone HTN - continue lasix, lisinopril GERD - continue protonix DVT prophylaxis - teds and scds, lovenox VS,Fishbone, I+O VS, Fishbone, I+O Laboratory Tests 04/01/21 05:24 Vital Signs Date Time Temp Pulse Resp B/P (MAP) Pulse Ox O2 Delivery O2 Flow Rate FiO2 04/01/21 07:32 97.9 53 17 137/78 (97) 97 Nasal Cannula 4.0 I&O- Last 24 Hours up to 6 AM 04/01/21 05:59 Intake Total 950 ml Output Total 550 ml Balance 400 ml REMIGIO LANDRUM MD Apr 01, 2021 08:25
--- NOTE | 2021-04-01 20:30 | ECHO ---
ECHOCARDIOGRAM DATE OF PROCEDURE: 04/01/2021 Age: 50 Gender: Male Height: 72 inches Weight: 216 pounds Body surface area: 2.2 m2 Inpatient, progressive care unit (PCU), room 3224. REFERRING PHYSICIAN: Holly Boogie D.O. INDICATION: Dyspnea. MEASUREMENTS: 2D Measurements: RV - 4.4 cm LV - 5.5 cm Septum 1.2 cm Posterior wall 1.2 cm Aortic root 4.0 cm LA - 4.1 cm LVEF 70% Doppler Measurements: AV - 1.42 m/s LVOT - 1.0 m/s LVOT diameter 2.2 cm MV-E 81, A 90, E:A ratio 0.9 Early mitral deceleration time 236 msec E prime medial 8.1 A prime medial 15.9 E prime lateral 9.6 PV - 1.1 m/s Pulmonary artery acceleration time 106 msec RVSP 35 mmHg IVC - 1.9 cm COMMENTS: Sinus bradycardia without intraventricular conduction disturbance. M-mode and 2-dimensional echocardiography was performed with pulse, continuous wave, color flow, and tissue Doppler studies. Borderline hypertrophied left ventricle with hyperkinetic wall motion. Slightly dilated left atrium with grade 1 LV diastolic dysfunction but currently normal estimated mean left atrial pressure. Mildly dilated right heart chambers with normal wall motion and Doppler evidence of mild pulmonary hypertension. Normal IVC size and collapse against an elevated central venous pressure. Mildly dilated aortic root but normal ascending and aortic arch diameters. Normal-appearing and functional aortic valve. Normal-appearing and functioning mitral valve and tricuspid valve with mild tricuspid insufficiency. No apparent intracardiac mass or pericardial effusion.
[2021-04-02] VITALS: BP 138/81
[2021-04-02 04:00] VITALS: BP 122/72
[2021-04-02 05:54] LABS: HEMATOCRIT 45.2 % (42.0-52.0); HEMOGLOBIN 13.6 g/dl (13.5-17.5); MEAN CORPUSCULAR HEMOGLOBIN 22.7 pg (27.0-33.0); MEAN CORPUSCULAR HGB CONC 30.1 g/dl (32.0-36.5); MEAN CORPUSCULAR VOLUME 75.3 fl (80.0-96.0); PLATELET COUNT, AUTOMATED 290 10^3/uL (150-450); WHITE BLOOD COUNT 11.8 10^3/uL (4.0-10.0)
[2021-04-02 06:22] LABS: ALBUMIN 2.9 GM/DL (3.2-5.2); ALT/SGPT 17 U/L (12-78); BILIRUBIN,TOTAL 0.4 MG/DL (0.2-1.0); BLOOD UREA NITROGEN 18 MG/DL (7-18); CARBON DIOXIDE LEVEL 29 MEQ/L (21-32); CHLORIDE LEVEL 106 MEQ/L (98-107); GLOMERULAR FILTRATION RATE > 60.0 (>56); GLUCOSE, FASTING 93 MG/DL (70-100); POTASSIUM SERUM 3.9 MEQ/L (3.5-5.1); SODIUM LEVEL 141 MEQ/L (136-145); TOTAL PROTEIN 7.7 GM/DL (6.4-8.2)
[2021-04-02] MEDS: SLF 3 ML SYR IV SCH (06:37)
[2021-04-02 07:37] VITALS: BP 145/84
[2021-04-02] MEDS: PANTOPRAZOLE 40MG TAB (PROTONIX) PO SCH (08:24)
[2021-04-02] MEDS: DOXYCYCLINE HYCLATE 100MG TABLET PO SCH (08:24)
[2021-04-02] MEDS: predniSONE 20 MG TAB PO SCH (08:24)
[2021-04-02] MEDS: FUROSEMIDE 40MG/4ML VIAL (J1940) IV SCH (08:25)
[2021-04-02] MEDS: METHADONE 10 MG TAB (S0109) PO SCH (08:25)
--- NOTE | 2021-04-02 09:19 | IPNPDOC ---
Date Seen The patient was seen on 04/02/21. Progress Note SUBJECTIVE: Patient is a 50-year-old male with his is a 50 year-old male with PMHx of HTN, GERD, hx of Hepatitis C, hx of heroin abuse on methadone therapy and pulmonary Langerhan's Histiocytosis presenting to the ED on 03/31 with progressive increasing shortness of breath for the past 3 days. Patient was seen at bedside this morning. He had no acute events overnight and has no acute complaints this morning. He states that he is ready to go home and that his breathing is back to his baseline. He does continue to have a productive cough. Denies fever, chills, night sweats, chest pain, palpitations, abdominal pain, n/v/d, swelling in legs. OBJECTIVE PHYSICAL EXAMINATION: VITAL SIGNS: Please see below. GENERAL: AAOx3; well appearing; in no acute distress HEENT: EOMI, trachea midline; no cervical LAD; uvula midline; moist mucous membranes CARDIOVASCULAR: regular rate and rhythm; S1 and S2 heard; no murmurs, rubs or gallops noted RESPIRATORY: Fine crackles bilaterally, good air entry bilaterally; no accessory muscle use ABDOMINAL: normoactive bowel sounds; rounded, soft, nondistended, no tenderness to palpation EXTREMITIES: no pedal edema bilaterally; has clubbing on all fingers NEUROLOGICAL: CN II-XII grossly intact; no focal neurologic deficits noted PSYCHIATRIC: appropriate mood and affect LABORATORY DATA, IMAGING STUDIES, MICROBIOLOGY: Please see below. IMAGING: CXR 03/31: "Coarsened prominent interstitium with hazy bilateral pulmonary infil trates which are increased since 08/12/2019 and may reflect pulmonary edema and congestive failure overlying COPD. Pneumonia is not excluded." CTA 03/31: "1. Coarse pulmonary interstitium with scattered bullous and cystic changes and mild bronchiectasis which are increased since 09/13/2017. There are also scattered ground-glass infiltrates, more perihilar, which are increased or new since the prior study. 2. Mild mediastinal and bilateral hilar adenopathy which is slightly increased overall since the prior study. 3. Enlarged main pulmonary artery measuring 40 mm which may be seen with pulmon kaylah hypertension. 4. Otherwise negative CTA chest. No pulmonary embolism is identified." Echocardiogram: "Sinus bradycardia without intraventricular conduction disturbance. M-mode and 2-dimensional echocardiography was performed with pulse, continuous wave, color flow, and tissue Doppler studies. Borderline hypertrophied left ventricle with hyperkinetic wall motion. Slightly dilated left atrium with grade 1 LV diastolic dysfunction but currently normal estimated mean left atrial pressure. Mildly dilated right heart chambers with normal wall motion and Doppler evidence of mild pulmonary hypertension. Normal IVC size and collapse against an elevated central venous pressure. Mildly dilated aortic root but normal ascending and aortic arch diameters. Normal-appearing and functional aortic valve. Normal-appearing and functioning mitral valve and tricuspid valve with mild tricuspid insufficiency. No apparent intracardiac mass or pericardial effusion." ASSESSMENT AND PLAN: This is a 50 year-old male with PMHx of HTN, GERD, hx of Hepatitis C, hx of heroin abuse on methadone therapy and pulmonary Langerhan's Histiocytosis presenting to the ED on 03/31 with progressive increasing shortness of breath for the past 3 days concerning for Acute Hypoxemic Respiratory Failure likely 2/2 to worsening interstitial lung disease, possible component of pulmonary edema and CAP. PROBLEMS: Acute hypoxemic respiratory failure - likely some chronic component 2/2 worsening smoking related ILD with ongoing smoking and hx of biopsy proven PLCH - possible acute component of pulmonary edema with new ground glass opacities in perihilar distribution and increased interlobular septal thickening with elevated BNP; also had fever and leukocytosis so possible CAP - continue Doxycycline for a total of 7 days for atypical coverage - pt currently on RA with O2 sat of 91%: will see how he sats with ambulation - c/w combivent inhaler - restart PO home torsemide 20mg after as pt reports prior hx of abdominal swelling/distention and prior hx of hep C - c/w PO prednisone 40mg daily for ILD for a total of 7 days - Smoking cessation education Possible Community Acquired Pneumonia - continue Doxycycline for a total of 7 days for atypical coverage - MRSA PCR negative - sputum cx: mod gram + cocci in pairs; mod gram + rods; few gram - rods --> likely contaminants; will wait for final cx read - blood cx: prelim negative for growths - pending legionella and strep urine antigens Prior hx of biopsy proven PLCH, ongoing smoking with evidence of progressive now more fibrotic smoking related interstitial lung disease - used to f/w Dr. Gin DC from pulmonary practice. Will need to f/u with another group on discharge. - smoking cessation counselling - Evidence of pulmonary hypertension on Echocardiogram; likely 2/2 to group 3 pulmonary HTN, hx also of SHAWN noncompliant with CPAP Hx opioid use - c/w home methadone - colace for prn constipation DVT prophylaxis - Heparin Code status Full Code. VS, I&O, 24H, Fishbone Vital Signs/I&O Vital Signs Date Time Temp Pulse Resp B/P (MAP) Pulse Ox O2 Delivery O2 Flow Rate FiO2 04/02/21 07:37 97.4 57 20 145/84 (104) 97 Nasal Cannula 3.0 I&O- Last 24 Hours up to 6 AM 04/02/21 06:00 Intake Total 2500 ml Output Total 1625 ml Balance 875 ml Laboratory Data 24H LABS Laboratory Tests 2 04/02/21 05:22: Nucleated Red Blood Cells % (auto) 0.0, Anion Gap 6L, Glomerular Filtration Rate > 60.0, Calcium Level 9.0, Magnesium Level 2.0, Total Bilirubin 0.4, Aspartate Amino Transf (AST/SGOT) 11, Alanine Aminotransferase (ALT/SGPT) 17, Alkaline Phosphatase 100, Total Protein 7.7, Albumin 2.9L, Albumin/Globulin Ratio 0.6 CBC/BMP Laboratory Tests 04/02/21 05:22 Microbiology Microbiology 03/31/21 Gram Stain - Final, Resulted 03/31/21 Sputum Culture, Resulted Pending 03/31/21 Blood Culture - Preliminary, Resulted No Growth after 48 hours. All Specime... 03/31/21 Blood Culture - Preliminary, Resulted No Growth after 48 hours. All Specime... 03/31/21 Respiratory Virus Panel (PCR) ([facility]) - Final, Complete GME ATTESTATION GME ATTESTATION My faculty preceptor for this patient encounter was physically present during the encounter and was fully available. All aspects of the patient interview, examination, medical decision making process, and medical care plan development were reviewed and approved by the faculty preceptor. The faculty preceptor is aware and concurs with the plan as stated in the body of this note and will attest to such by his/her cosignature. ATTENDING NOTE I, Maria C Power, have conducted an independent examination and history of the patient and agree with the plan as detailed by resident and discussed during rounds. Holly Boogie DO Apr 02, 2021 09:19 MARIA C POWER MD Apr 02, 2021 21:33
--- NOTE | 2021-04-02 09:41 | DS.PDOC ---
Discharge Summary General Date of Admission Mar 31, 2021 at 00:03 Date of Discharge 04/02/2021 Attending Physician: REMIGIO LANDRUM MD Discharge Summary PROCEDURES PERFORMED DURING STAY: None ADMITTING DIAGNOSES: Acute hypoxemic respiratory failure DISCHARGE DIAGNOSES: Acute hypoxemic respiratory failure CAP Adult Pulmonary Langerhans Cell Histiocytosis HTN GERD HCV s/p treatment History of polysubstance abuse on methadone therapy Pulmonary HTN Mild HFpEF exacerbation with grade 1 diastolic dysfunction COMPLICATIONS/CHIEF COMPLAINT: Adult Pulmonary Langerhans Cell Histiocytosis. HISTORY OF PRESENT ILLNESS: 50 y/o M with htn, gerd, hep c s/p treatment, polysubstance abuse on methadone therapy and adult pulmonary langerhan's histiocytosis, active smoker, who p resents to our ED on 03/31 with a cc of increasing sob x3 days. Patient reported that his symptoms began insidiously about 3 days ago and steadily worsened. He otherwise denied any subjective fevers, chills, chest pain, chest tightness, cough, abd pain, n/v/d/c, pedal edema, dysuria, recent travel. HOSPITAL COURSE: In the ED, he was hypoxemic to at least low 80s and required 4L NC to return to at least 90% saturation. He was afebrile, and normotensive. He was started on CAP coverage with underlying lung disease with cefepime and was initially given fluids? On day 2, pulm was consulted and placed him on IV diuretics and de- escalated his antibiotics to ceftriaxone/doxy and continue prednisone 40mg PO that was started after an initial dose of solumedrol. He had a TTE that revealed some mild diastolic dysfunction and pulm HTN. His hypoxemia improved to 91% on room air at rest on day 2, but he did have some desaturation with exertion. He is now being discharged home with PRN home oxygen for exertion, prednisone 40mg for 7d, doxy for 7d and referral to pulm in [place] as he had been discharged from [facility] pul for non-compliance. Of note, he has SHAWN for which he refuses CPAP therapy. He also was extensively counselled by pulm about the deleterious effects of continued smoking as this is most definitely contributing to his Langerhan's histiocytosis flare. DISCHARGE MEDICATIONS: Please see below. ALLERGIES: Please see below. PHYSICAL EXAMINATION ON DISCHARGE: VITAL SIGNS: Please see below. GENERAL APPEARANCE: NAD HEENT: NCAT, EOMI, MMM CARDIOVASCULAR: RRR, no m/r/g LUNGS: Continues to have fine velcro like crackles. ABDOMEN: Normoactive bowel sounds, soft, NTND EXTREMITIES: No pedal edema appreciated. Pulses intact. No overlying skin changes NEUROLOGICAL: Speech clear. A+Ox3. No focal deficits LABORATORY DATA: Please see below. IMAGING: CXR: Lungs: Coarse and prominent interstitium with hazy bilateral pulmonary infiltrates which are increased since the prior study. Pleural spaces: Unremarkable. No pleural effusion. No pneumothorax. Heart/Mediastinum: The heart and mediastinum are unchanged. Bones/joints: Anterior fusion of the cervical spine. IMPRESSION: Coarsened prominent interstitium with hazy bilateral pulmonary infiltrates which are increased since 08/12/2019 and may reflect pulmonary edema and congestive failure overlying COPD. Pneumonia is not excluded. CTA Chest: Pulmonary arteries: The main pulmonary artery measures 40 mm. No pulmonary embolism is identified. Aorta: The ascending thoracic aorta measures 30 mm. Lungs: Coarse interstitium with scattered bullous and cystic changes and mild bronchiectasis. There are minimal scattered ground-glass infiltrates which are increased or new. Pleural spaces: Unremarkable. No pneumothorax. No pleural effusion. Heart: Unremarkable. No cardiomegaly. No pericardial effusion. Mediastinal space: Minimal hiatal hernia. Lymph nodes: Numerous enlarged mediastinal and bilateral hilar nodes which are slightly increased overall since the prior study. Bones/joints: Anterior fusion of the lower cervical spine. Slight anterior wedge configuration of T11 and to a lesser degree T8 which appear to be chronic and unchanged from the prior study. Soft tissues: Unremarkable. IMPRESSION: 1. Coarse pulmonary interstitium with scattered bullous and cystic changes and mild bronchiectasis which are increased since 09/13/2017. There are also scattered ground-glass infiltrates which are increased or new since the prior study. 2. Mild mediastinal and bilateral hilar adenopathy which is slightly increased overall since the prior study. 3. Enlarged main pulmonary artery measuring 40 mm which may be seen with pulmonary hypertension. 4. Otherwise negative CTA chest. No pulmonary embolism is identified. TTE: INDICATION: Dyspnea. MEASUREMENTS: 2D Measurements: RV - 4.4 cm LV - 5.5 cm Septum 1.2 cm Posterior wall 1.2 cm Aortic root 4.0 cm LA - 4.1 cm LVEF 70% Doppler Measurements: AV - 1.42 m/s LVOT - 1.0 m/s LVOT diameter 2.2 cm MV-E 81, A 90, E:A ratio 0.9 Early mitral deceleration time 236 msec E prime medial 8.1 A prime medial 15.9 E prime lateral 9.6 PV - 1.1 m/s Pulmonary artery acceleration time 106 msec RVSP 35 mmHg IVC - 1.9 cm COMMENTS: Sinus bradycardia without intraventricular conduction disturbance. M-mode and 2-dimensional echocardiography was performed with pulse, continuous wave, color flow, and tissue Doppler studies. Borderline hypertrophied left ventricle with hyperkinetic wall motion. Slightly dilated left atrium with grade 1 LV diastolic dysfunction but currently normal estimated mean left atrial pressure. Mildly dilated right heart chambers with normal wall motion and Doppler evidence of mild pulmonary hypertension. Normal IVC size and collapse against an elevated central venous pressure. Mildly dilated aortic root but normal ascending and aortic arch diameters. Normal-appearing and functional aortic valve. Normal-appearing and functioning mitral valve and tricuspid valve with mild tricuspid insufficiency. PROGNOSIS: Good if compliant with pulm recs, high risk for readmission if non- compliant ACTIVITY: As tolerated DIET: 2g sodium DISCHARGE PLAN: Home with close PCP follow up and pulm referral DISPOSITION: Home DISCHARGE INSTRUCTIONS: Home with close PCP follow up and pulm referral ITEMS TO FOLLOWUP ON ON OUTPATIENT: CAP and ILD flare resolution DISCHARGE CONDITION: Stable TIME SPENT ON DISCHARGE: 50 minutes. Vital Signs/I&Os Vital Signs Date Time Temp Pulse Resp B/P (MAP) Pulse Ox O2 Delivery O2 Flow Rate FiO2 04/02/21 07:37 97.4 57 20 145/84 (104) 97 Nasal Cannula 3.0 I&O- Last 24 Hours up to 6 AM 04/02/21 06:00 Intake Total 2500 ml Output Total 1625 ml Balance 875 ml Laboratory Data Labs 24H Laboratory Tests 2 04/02/21 05:22: Nucleated Red Blood Cells % (auto) 0.0, Anion Gap 6L, Glomerular Filtration Rate > 60.0, Calcium Level 9.0, Magnesium Level 2.0, Total Bilirubin 0.4, Aspartate Amino Transf (AST/SGOT) 11, Alanine Aminotransferase (ALT/SGPT) 17, Alkaline Phosphatase 100, Total Protein 7.7, Albumin 2.9L, Albumin/Globulin Ratio 0.6 CBC/BMP Laboratory Tests 04/02/21 05:22 Microbiology Microbiology 03/31/21 Gram Stain - Final, Resulted 9/20/21 Sputum Culture, Resulted Pending 03/31/21 Blood Culture - Preliminary, Resulted No Growth after 48 hours. All Specime... 03/31/21 Blood Culture - Preliminary, Resulted No Growth after 48 hours. All Specime... 03/31/21 Respiratory Virus Panel (PCR) ([facility]) - Final, Complete Discharge Medications Scheduled Furosemide (Furosemide) 20 Mg Tablet, 20 MG PO DAILY, (Reported) Lisinopril (Lisinopril) 10 Mg Tablet, 10 MG PO DAILY, (Reported) Methadone HCl (Methadone Intensol) 10 Mg/1 Ml Oral.conc, 135 MG PO DAILY, (Reported) VERIFIED WITH [facility] Multivitamins (Thera M Plus Tablet) 1 Tab Tab, 1 TAB PO DAILY, (Reported) Pantoprazole Sodium (Pantoprazole Sodium) 40 Mg Tablet.dr, 40 MG PO DAILY, (Reported) Testosterone Cypionate (Testosterone Cypionate) 100 Mg/1 Ml Vial, 100 MG IM QWEEK, (Reported) TUESDAYS Scheduled PRN Albuterol Sulfate (Proair Hfa) 108 Mcg/Act Aer, 2 PUFFS INH QID PRN for SHORTNESS OF BREATH, (Reported) Pregabalin (Pregabalin) 150 Mg Capsule, 150 MG PO BID PRN for PAIN LEVEL 1-4, (Reported) Allergies Coded Allergies: No Known Allergies (Unverified , 03/01/20) REMIGIO LANDRUM MD Apr 02, 2021 09:35
[2021-04-02] MEDS ORDERED: DOXY100T PO (09:42)
[2021-04-02] MEDS ORDERED: PRED20TA PO (09:42)
[2021-04-03 21:08] LABS: BODY FLUID CULTURE Not indicated. (.); LEGIONELLA ANTIGEN URINE Negative (Negative); ORGANISM ID Not indicated. (.); SPECIMEN SOURCE Urine (.); URINE STREP PNEUMONIAE ANTIGEN Negative (Negative)
== END 2021-04-02 10:47 | disposition home or self-care (01) | DRG 196 ==
LOC: M ED 00:02 → EEVIPCON 00:03 → M ED INP 00:03 → ENRESERV 05:54 → M PCU 07:03
PROVIDERS: ADMIT Internal Medicine; ATTEND Internal Medicine
DX: J84.82 Adult pulmonary Langerhans cell histiocytosis (principal); J18.9 Pneumonia, unspecified organism; J96.01 Acute respiratory failure with hypoxia; I50.33 Acute on chronic diastolic (congestive) heart failure; I11.0 Hypertensive heart disease with heart failure; I27.20 Pulmonary hypertension, unspecified; K21.9 Gastro-esophageal reflux disease without esophagitis; F17.200 Nicotine dependence, unspecified, uncomplicated; G47.33 Obstructive sleep apnea (adult) (pediatric); Z91.19 Patient's noncompliance with other medical treatment and regimen; Z79.899 Other long term (current) drug therapy

== ENCOUNTER 2021-05-04 20:38 | Inpatient (IN) | payer MEDICARE ==
[~2021-05-04] VITALS: Ht 182.9 cm; Wt 101.2 kg
[~2021-05-04 20:38] MED LIST changes: +DOXY100T PO; +FURO20TA2 PO; +LISI10TA22 PO; +METH10CO3 PO; +PANT40TA29 PO; +TEST1INJ3 IM
--- OUTSIDE RECORDS SUMMARY | 2021-05-04 20:50 | CCD ---
Author Organization Unknown Address [address] [place] [address] Phone [phone] Care Team Providers Care Heavy Equipment Service Manager Name Role Phone MayfieldBlayne Unavailable Unavailable Allergies Code Code System Name Reaction Severity Status Onset NKDA Medications Name Status Start Date Stop Date acetaminophen 325 mg tablet TAKE ONE TABLET BY MOUTH EVERY 6 HOURS NEEDED FOR PAIN Completed 11/25/2020 Alcohol Prep Pads Active Not available amoxicillin 875 mg-potassium clavulanate 125 mg tablet TAKE ONE TABLET BY MOUTH TWICE A DAY FOR 14 DAYS Completed 11/25/2020 BD Luer-Sharron Syringe 3 mL 23 gauge x 1 1/ 2" USE DIRECTED FOR INJECTION Active Not avail able BD Regular Bevel Tie Siding 18 gauge x 1" USE DIRECTED Active Not available buspirone 5 mg tablet TAKE ONE TABLET BY MOUTH THREE TIMES A DAY Active Not available doxycycline hyclate 100 mg capsule Take 1 capsule twice a day by oral route for 7 days. Active Not available doxycycline hyclate 100 mg tablet Active Not available escitalopram 10 mg tablet TAKE ONE TABLET BY MOUTH EVERY DAY Completed 11/09 escitalopram 20 mg tablet Completed 2020 fluticasone 250 mcg-salmeterol 50 mcg/do se blistr powdr for inhalation USE DIRECTED Active 11/25/2020 Not available Fluzone Quad 60 mcg (15 mcg x 4)/0.5 mL intramuscular susp. INJECT DIRECTED Completed 11/25/2020 furosemide 20 mg tablet Take 1 tablet every day by oral route. Active Not available gabapentin 300 mg capsule TAKE ONE CAPSULE BY MOUTH AT BEDTIME FOR 7 DAYS THEN TAKE ONE CAPSULE BY MOUTH TWICE A DAY FOR 7 DAYS THEN TAKE ONE CAPSULE BY MOUTH THREE Completed 11/25/2020 ibuprofen 600 mg tablet TAKE ONE TABLET BY MOUTH TWICE A DAY Completed lisinopril 10 mg tablet TAKE ONE TABLET BY MOUTH EVERY DAY Active Not available meloxicam 7.5 mg tablet TAKE ONE TABLET BY MOUTH EVERY DAY Completed 11/09 methadone 10 mg/mL oral concentrate Take 135 mL every day by oral route. Active No t available methylprednisolone 4 mg tablets in a dos e pack TAKE DOSE BRIJESH DIRECTED ON SHEET Completed 11/09 multivitamin one daily Active Not available naproxen 500 mg tablet TAKE ONE TABLET BY MOUTH EVERY 12 HOURS FOR 7 DAYS Completed 11/25/2020 nicotine (polacrilex) [address] 1 GUM IN MOUTH NEEDED UP TO 10 PIECES PER DAY Active Not available nicotine 21 mg/24 hr daily transdermal p atch APPLY 1 PATCH TOPICALLY ONCE DAILY Active Not available omeprazole 20 mg capsule,delayed release TAKE ONE CAPSULE BY MOUTH EVERY DAY Completed pantoprazole 40 mg tablet,delayed releas e TAKE ONE TABLET BY MOUTH EVERY DAY Active Not available prednisone 20 mg tablet Take 1 tablet twice a day by oral route for 7 days. Active Not available pregabalin 150 mg capsule TAKE ONE CAPSULE BY MOUTH TWICE A DAY MAXIMUM DAILY DOSE 2 Active Not available pregabalin 200 mg capsule TAKE ONE CAPSULE BY MOUTH EVERY DAY MAXIMUM DAILY DOSE 1 Active Not available ProAir HFA 90 mcg/actuation aerosol inha ler INHALE TWO PUFFS BY MOUTH EVERY 4 HOURS NEEDED FOR SHORTNESS OF BREATH Active Not available sildenafil 100 mg tablet Take 1 tablet every day by oral route as needed. Completed 04/03/2021 sulfamethoxazole 800 mg-trimethoprim 160 mg tablet TAKE 1 TABLET BY MOUTH TWO TIMES A DAY FOR 7 DAYS Completed 04/03/2021 terbinafine HCl 250 mg tablet TAKE 1 TABLET BY MOUTH ONCE DAILY Completed 04/03 testosterone cypionate 100 mg/mL intramu scular oil INJECT 1ML INTRAMUSCULARLY EVERY WEEK MAXIMUM DAILY DOSE 1ML/WEEK Active Not available tizanidine 2 mg tablet TAKE ONE TABLET BY MOUTH EVERY 8 HOURS NEEDED FOR SPASMS Completed 11/25/2020 tobramycin 0.3 % eye drops INSTILL 2 DROPS INTO AFFECTED EYE S THREE TIMES A DAY FOR 7 DAYS Completed 11/25/2020 Problems Name Status Onset Date Source Vitamin D Deficiency Active 02/28/2013 History Hyperlipidemia Active 02/28/2013 History Psychoactive Substance Abuse Active 02/28/2013 His tory Degeneration of Lumbar Intervertebral Disc Active 02/28 History 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 History Fracture of Carpal Bone Active 01/04/2014 History Joint Finding Active 04/11/2014 History Finding of Esophagus Active 04/11/2014 History Generalized Anxiety Disorder Active 04/13/2014 His tory Polyp of Vocal Cord or Larynx Active 04/16/2014 Hi story Disorder of Skin And/or Subcutaneous Tissue Active 05/12 History [place] Lesion of Lung Active 06/12/2014 History Finding of Upper Limb Active 06/12/2014 History Hypertensive Disorder Active 09/11/2014 History Abdominal Pain Active 10/01/2014 History Idiopathic Interstitial Pneumonia Active 10/12/2014 History Memory Finding Active 12/31/2014 History Onychomycosis Active 07/15/2015 History Pain in Thoracic Spine Active 11/12/2015 History Pain of Left Wrist Active 12/11/2015 History Procedure Active 04/02/2016 History Functional Finding Active 09/09/2016 History Hepatitis C Carrier Active 12/24/2016 History Body Mass Index 30+ - Obesity Active 12/27/2016 Hi story Impotence Active 01/27/2017 History Obstructive Sleep Apnea Syndrome Active 03/30/2017 History Dyspnea Active 08/05/2017 History Dental Caries on Smooth Surface Penetrating into Pulp Active 08/27/2017 History Influenza Vaccine Needed Active 04/22/2018 History Liver Enzyme Levels - Finding Active 04/22/2018 Hi story Dental Denominational Present Active 06/07/2018 Histo ry Pain in Left Lower Limb Active 08/05/2018 History Localized Enlarged Lymph Nodes Active 08/05/2018 H istory Chest Pain Active 08/05/2018 History Finding of General Energy Active 09/16/2018 Histor y Evaluation Finding Active 11/23/2018 History Dental Arch Length Loss Secondary to Dental Caries Active 11/28/2018 History Hypothyroidism Active 12/28/2018 History Furuncle of Abdominal Wall Active 12/28/2018 Histo ry Low Blood Pressure Active 01/25/2019 History Adult Pulmonary Langerhans Cell Histiocytosis Active History Cellulitis Active 02/17/2019 History Endocrine/metabolic Screening Active 02/17/2019 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 History Clinical Finding Active 03/24/2019 History Finding of Body Region Active 05/03/2019 History Lyme Disease Active 06/23/2019 History Left Side Sciatica Active 12/29/2019 History Primary Erectile Dysfunction Active 05/08/2020 Erectile Dysfunction Active 09/19/2020 Decreased Testosterone Level Active 11/27/2020 Depressive Disorder Active History SNOMED CT Concept Active History Procedures Date Name Performed by 04/18/2021 XR, Chest, 2 View Information not avai lable Notes: left knee surgery 2000, bone fusi on in neck 2002, 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, 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, right hand, pinky and ring finger surgery (1988), lung biopsy 2019 Results Lab Results Date Name Specimen Result Interpretation Description Value Range Status Address 05/01/2021 SARS CoV 2 RdRp Gene, QL Probe, Respiratory Spec imen Nasopharyngeal Normal Sars-cov-2 negative negative Final [facility]: [address] [facility] 03/28/2021 SARS CoV 2 RNA (COVID-19), QL, air bag curer-PCR, Respiratory Specimen Nasopharyngeal Normal Sars Cov 2 RNA not detected not detected [facility]: [address] [facility] 02/12/2021 CBC W/ Auto Diff Normal White Blood Count 9.2 10 4.0-10.0 10 [facility]: [address] [address] Normal Red Blood Count 5.60 10 4.30-6.10 10 [facility]: [address] [address] Low Hemoglobin 13.4 g/dL 13.5-17.5 g/dL [facility]: [address] [address] Normal Hematocrit 44.7 % 42.0-52.0 % [facility]: [address] [address] Low Mean Corpuscular Volume 79.8 fL 80.0 -96.0 fL [facility]: [address] [address] Low Mean Corpuscular Hemoglobin 23.9 pg 27.0-33.0 pg [facility]: [address] [place] [address] Low Mean Corpuscular HGB Conc 30.0 g/dL 32.0-36.5 g/dL [facility]: [address] [place] [address] High Red Cell Distribution Width 15.3 % 1 1.5-14.5 % [facility]: [address] [place] [address] Normal Platelet Count, Automated 298 10 150 -450 10 [facility]: [address] [address] Normal Neutrophils % 62.2 % 36.0-66.0 % [facility]: [address] [facility] Normal Lymph % 27.4 % 24.0-44.0 % [facility]: [address] [facility] High Upson % 8.8 % 2.0-8.0 % [facility]: [address] [facility] Normal Eos % 1.0 % 0.0-3.0 % [facility]: [address] [facility] Normal Baso % 0.3 % 0.0-1.0 % [facility]: [address] [facility] Normal Immature Granulocyte % 0.3 % 0-3.0 % [facility]: 0 [facility] Normal Nucleated Red Blood Cell % 0.0 % 0- 0 % [facility]: [address] [facility] Normal Neutrophils # 5.7 10 1.5-8.5 10 [facility]: [address] [facility] Normal Lymph # 2.5 10 1.5-5.0 10 [facility]: [address] [facility] Normal Upson # 0.8 10 0.0-0.8 10 [facility]: [address] [facility] Normal Eos # 0.1 10 0.0-0.5 10 [facility]: [address] [facility] Normal Baso # 0.0 10 0.0-0.2 10 [facility]: [address] [facility] 02/12/2021 CMP, Serum or Plasma Normal Glucose, Fastin g 94 mg/dL 70-100 mg/dL [facility]: [address] 0 [facility] Normal Blood Urea Nitrogen 13 mg/dL 7-18 mg /dL [facility]: 0 [facility] Normal Creatinine for GFR 1.11 mg/dL 0.70-1 .30 mg/dL [facility]: 0 [facility] Normal Glomerular Filtration Rate > 60.0 >5 6 [facility]: [address] [facility] Low Sodium Level 135 mEq/L 136-145 mEq/L [facility]: [address] [facility] Normal Potassium Serum 4.3 mEq/L 3.5-5.1 mE q/L [facility]: [address] [facility] Normal Chloride Level 101 mEq/L 98-107 mEq/ L [facility]: [address] [facility] Normal Carbon Dioxide Level 28 mEq/L 21-32 mEq/L [facility]: [address] [facility] Low Anion Gap 6 mEq/L 8-16 mEq/L [facility]: [address] [facility] Normal Calcium Level 8.8 mg/dL 8.5-10.1 mg/ dL [facility]: [address] [facility] Normal AST/SGOT 20 U/L 7-37 U/L [facility]: [address] [facility] Normal ALT/SGPT 18 U/L 12-78 U/L [facility]: [address] [facility] Normal Alkaline Phosphatase 114 U/L 45-117 U/L [facility]: [address] [facility] Normal Bilirubin,total 0.3 mg/dL 0.2-1.0 mg /dL [facility]: [address] [facility] Normal Total Protein 7.9 gm/dL 6.4-8.2 gm/d L [facility]: [address] [facility] Normal Albumin 3.6 gm/dL 3.2-5.2 gm/dL Abena [facility]: [address] [facility] Normal Albumin/globulin Ratio 0.8 [facility]: [address] [facility] 02/12/2021 Testosterone, Total, Serum Normal Testoster one 536 NG/dL 241- 827 NG/dL [facility]: 83 0 [facility] 02/12/2021 PSA, Serum or Plasma Normal Prostat ic Specific Ag Monitor 0.30 NG/mL < 4.00 NG/mL [facility] nter: 0 [facility] 02/12/2021 TSH, Serum or Plasma Normal Thyroid Stimulating Hormone 1.980 uIU/mL 0.358-3.740 uIU/mL [facility] nter: [address] [address] 02/12/2021 HbA1C (Hemoglobin a1C), Blood Normal Hemogl obin a1C 5.7 % Final [facility]: [address] [address] High Estimated Average Glucose 117 mg/dL 60-110 mg/dL [facility]: [address] [place] [address] 06/27/2020 SARS CoV 2 RNA (COVID-19), QL, air bag curer-PCR, Respirat ory Specimen ABNORMAL Sars Cov 2 RNA detected not detected Final 02/24/2020 C Reactive Protein, QN, Serum or Plasma High C Reactive Protein Quantitativ 5.67 mg/dL 0.00-0.30 mg/dL [facility]: [address] [place] [address] Past Encounters 05/02/2021 Decreased Testosterone Level Blayne Mayfield MD: [address] [place] [phone], Ph. 05/01/2021 Exposure to SARS-CoV-2 Blayne Mayfield MD: [address] [place] [phone], Ph. 04/25/2021 Decreased Testosterone Level Blayne Mayfield MD: [address] [place] [phone], Ph. 04/18/2021 Decreased Testosterone Level Blayne Mayfield MD: [address] [place] [phone], Ph. 04/08/2021 Decreased Testosterone Level Blayne Mayfield MD: [address] [place] [phone], Ph. 04/04/2021 Decreased Testosterone Level; Generalized Anxiety Disorder; Adult Pulmonary Langerhans Cell Histiocytosis Blayne Mayfield MD: [address] [place] [phone], Ph. 03/28/2021 Exposure to SARS-CoV-2 Blayne Mayfield MD: [address] [place] [address], Ph. 03/25/2021 Decreased Testosterone Level Blayne Mayfield MD: [address], [place] [address], Ph. 03/18/2021 Decreased Testosterone Level Blayne Mayfield MD: [address] [place] [address], Ph. 03/10/2021 Decreased Testosterone Level; Depressive Disorder Blayne Mayfiedl MD: [address] [place] [address], Ph. 02/26/2021 Dyspnea Blayne Mayfield MD: [address] [place] [address], Ph. 02/05/2021 Decreased Testosterone Level; Dyspnea Blayne Mayfield MD: [address] [place] [address], Ph. 01/22/2021 Decreased Testosterone Level Blayne Mayfield MD: [address] [place] [address], Ph. 01/08/2021 Decreased Testosterone Level Blayne Mayfield MD: [address] [place] [address], Ph. 12/25/2020 Decreased Testosterone Level Blayne Mayfield MD: [address] [place] [address], Ph. 12/11/2020 Blayne Mayfield MD: [address] [place] [address], Ph. 11/27/2020 Blayne Mayfield MD: [address] [place] [address], Ph. 11/25/2020 Primary Erectile Dysfunction; Obstructive Sleep Apnea Syndrome Blayne Mayfield MD: [address] [place] [address], Ph. 09/19/2020 Degeneration of Lumbar Intervertebral Disc; Primary Erectile Dysfunction Blayne Mayfield MD: [address] [place] [address], Ph. 05/08/2020 Degeneration of Lumbar Intervertebral Disc; Primary Erectile Dysfunction Blyane Mayfield MD: [address] [place] [address], Ph. Social History Tobacco Smoking Status Light Tobacco Smoker (1/4 pack per da y) Notes: 6 all day Vaccine List Vaccine Type COVID-19, mRNA, LNP-S, PF, 100 mcg/0.5 m L dose 10/23/2020 11/22/2020 influenza, injectable, quadrivalent, pre servative free 06/23/20190.5 mL influenza, seasonal, injectable 04/22/20180.5 mL Plan of Care Reminders Provider Appointments None recorded. Lab None recorded. Referral None recorded. Procedures None recorded. Surgeries None recorded. Imaging None recorded. Vitals 04/08/2021 09:40AM NURSE Height 72 in 04/04/2021 01:20PM HOSPITAL DISCHARGE Height Weight BMI Blood Pressure 72 in 214 lbs 8 oz 29.1 kg/m2 132/81 mm[Hg] 03/25/2021 11:00AM NURSE Height Blood Pressure 72 in 122/74 mm[Hg] 03/10/2021 11:00AM ED FOLLOW-UP Height Weight BMI Blood Pressure 72 in 212 lbs 16 oz 28.9 kg/m2 121/73 mm[Hg] 02/05/2021 02:00PM SAME DAY 20 Height Weight BMI Blood Pressure 72 in 216 lbs 6 oz 29.3 kg/m2 133/91 mm[Hg] 12/11/2020 10:30AM NURSE Height 72 in 11/25/2020 10:20AM ESTABLISHED [id number] Height Weight BMI Blood Pressure 72 in 195 lbs 16 oz 26.6 kg/m2 117/78 mm[Hg] 09/19/2020 01:40PM ESTABLISHED [id number] Height Weight BMI Blood Pressure 72 in 201 lbs 27.3 kg/m2 126/76 mm[Hg] 05/08/2020 03:20PM ESTABLISHED [id number] Height Weight BMI Blood Pressure 72 in 206 lbs 27.9 kg/m2 129/86 mm[Hg] 03/27/2020 Height Weight BMI Blood Pressure 72 in 213 lbs 2.08 oz 29.01 kg/m2 109/71 mm[H g] 01/26/2020 Height Weight BMI Blood Pressure 72 in 218 lbs 2.08 oz 29.69 kg/m2 134/74 mm[H g] 12/29/2019 Height Weight BMI Blood Pressure 72 in 220 lbs 29.95 kg/m2 130/80 mm[Hg] 09/22/2019 Height Weight BMI Blood Pressure 72 in 218 lbs 6.08 oz 29.72 kg/m2 117/78 mm[H g] 06/23/2019 Height Weight BMI Blood Pressure 72 in 219 lbs 29.81 kg/m2 125/64 mm[Hg] 03/24/2019 Height Weight BMI Blood Pressure 72 in 221 lbs 2.08 oz 30.10 kg/m2 116/78 mm[H g] 02/17/2019 Height Weight BMI Blood Pressure 72 in 226 lbs 30.76 kg/m2 127/78 mm[Hg] 01/25/2019 Height Weight BMI Blood Pressure 72 in 224 lbs 30.49 kg/m2 97/70 mm[Hg] 12/28/2018 Height Weight BMI Blood Pressure 72 in 228 lbs 6.08 oz 31.09 kg/m2 114/76 mm[H g] 09/16/2018 Height Weight BMI Blood Pressure 72 in 230 lbs 31.31 kg/m2 129/73 mm[Hg] 08/05/2018 Height Weight BMI Blood Pressure 72 in 232 lbs 31.58 kg/m2 120/84 mm[Hg] 07/13/2018 Height Weight BMI Blood Pressure 72 in 232 lbs 6.08 oz 31.63 kg/m2 115/76 mm[H g]
--- OUTSIDE RECORDS SUMMARY | 2021-05-04 20:51 | CCD ---
Author Organization Unknown Address [address] [place] [address] Phone [phone] Care Team Providers Care Business Education Professor Name Role Phone MayfieldBlayne Unavailable Unavailable Allergies [...] Active Not avail able BD Regular Bevel [place] 18 gauge x 1" USE DIRECTED Active [...] Skin And/or Subcutaneous Tissue Active 05/12 History [place] Lesion of Lung Active 06/12/2014 History Finding [...] - Finding Active 04/22/2018 Hi story Dental Jehovah'S Witness Present Active 06/07/2018 Histo ry Pain in [...] imen Nasopharyngeal Normal Sars-cov-2 negative negative Final [facility]: [address] [facility] 03/28/2021 SARS CoV 2 RNA (COVID-19), QL, firer locomotive-PCR, Respiratory Specimen Nasopharyngeal Normal Sars Cov 2 RNA not detected not detected [facility]: [address] [facility] 02/12/2021 CBC W/ Auto Diff Normal White Blood Count 9.2 10 4.0-10.0 10 [facility]: [address] [place] [address] Normal Red Blood Count 5.60 10 4.30-6.10 10 [facility]: [address] [place] [address] Low Hemoglobin 13.4 g/dL 13.5-17.5 g/dL [facility]: [address] [place] [address] Normal Hematocrit 44.7 % 42.0-52.0 % [facility]: [address] [place] [address] Low Mean Corpuscular Volume 79.8 fL 80.0 -96.0 fL [facility]: [address] [place] [address] Low Mean Corpuscular Hemoglobin 23.9 pg 27.0-33.0 pg [facility]: [address] [place] [address] Low Mean Corpuscular HGB Conc 30.0 g/dL 32.0-36.5 g/dL [facility]: [address] [place] [address] High Red Cell Distribution Width 15.3 % 1 1.5-14.5 % [facility]: [address] [place] [address] Normal Platelet Count, Automated 298 10 150 -450 10 [facility]: [address] [place] [address] Normal Neutrophils % 62.2 % 36.0-66.0 % [facility]: [address] [facility] Normal Lymph % 27.4 % 24.0-44.0 % [facility]: [address] [facility] High [place] % 8.8 % 2.0-8.0 % [facility]: [address] [facility] Normal Eos % 1.0 % 0.0-3.0 % [facility]: [address] [facility] Normal Baso % 0.3 % 0.0-1.0 % [facility]: [address] [facility] Normal Immature Granulocyte % 0.3 % 0-3.0 % [facility]: 0 [facility] Normal Nucleated Red Blood Cell % 0.0 % 0- 0 % [facility]: [address] [facility] Normal Neutrophils # 5.7 10 1.5-8.5 10 [facility]: [address] [facility] Normal Lymph # 2.5 10 1.5-5.[address] [facility]: [address] [facility] Normal [place] # 0.8 10 0.0-0.8 10 [facility]: [address] [facility] Normal Eos # 0.1 10 0.0-0.5 10 [facility]: [address] [facility] Normal Baso # 0.0 10 0.0-0.2 10 [facility]: [address] [facility] 02/12/2021 CMP, Serum or Plasma Normal Glucose, Fastin g 94 mg/dL 70-100 mg/dL [facility]: [address] [facility] Normal Blood Urea Nitrogen 13 mg/dL 7-18 mg /dL [facility]: 0 [facility] Normal Creatinine for GFR 1.11 mg/dL 0.70-1 .30 mg/dL [facility]: 0 [facility] Normal Glomerular Filtration Rate > 60.0 >5 6 [facility]: [address] [facility] Low Sodium Level 135 mEq/L 136-145 mEq/L [facility]: [address] [facility] Normal Potassium Serum 4.3 mEq/L 3.5-5.1 mE q/L [facility]: [address] [facility] Normal Chloride Level 101 mEq/L 98-107 mEq/ L [facility]: [address] [facility] Normal Carbon Dioxide Level 28 mEq/L 21-32 mEq/L [facility]: [address] [facility] Low Anion Gap 6 mEq/L 8-16 mEq/L [facility]: [address] [facility] Normal Calcium Level 8.8 mg/dL 8.5-10.1 mg/ dL [facility]: [address] [facility] Normal AST/SGOT 20 U/L 7-37 U/L [facility]: [address] [facility] Normal ALT/SGPT 18 U/L 12-78 U/L [facility]: [address] [facility] Normal Alkaline Phosphatase 114 U/L 45-117 U/L [facility]: [address] [facility] Normal Bilirubin,total 0.3 mg/dL 0.2-1.0 mg /dL [facility]: [address] [facility] Normal Total Protein 7.9 gm/dL 6.4-8.2 gm/d L [facility]: [address] [facility] Normal Albumin 3.6 gm/dL 3.2-5.2 gm/dL [facility]: [address] [facility] Normal Albumin/globulin Ratio 0.8 [facility]: [address] [facility] 02/12/2021 Testosterone, Total, Serum Normal Testoster one 536 NG/dL 241- 827 NG/dL [facility]: [address] [facility] 02/12/2021 PSA, Serum or Plasma Normal Prostat ic Specific Ag Monitor 0.30 NG/mL < 4.00 NG/mL [facility] nter: [address] [place] [address] 02/12/2021 TSH, Serum or Plasma Normal Thyroid Stimulating Hormone 1.980 uIU/mL 0.358-3.740 uIU/mL [facility] nter: [address] [place] [address] 02/12/2021 HbA1C (Hemoglobin a1C), Blood Normal Hemogl obin a1C 5.7 % Final [facility]: [address] [place] [address] High Estimated Average Glucose 117 mg/dL 60-110 mg/dL [facility]: [address] [place] [address] 06/27/2020 SARS CoV 2 RNA (COVID-19), QL, firer locomotive-PCR, Respirat ory Specimen ABNORMAL Sars Cov 2 RNA detected not detected Final 02/24/2020 C Reactive Protein, QN, Serum or Plasma High C Reactive Protein Quantitativ 5.67 mg/dL 0.00-0.30 mg/dL [facility]: [address] [place] [address] Past Encounters 05/01/2021 Exposure to SARS-CoV-2 Blayne Mayfield MD: [address] [place] [phone], Ph. 04/25/2021 Decreased Testosterone Level Blayne Mayfield MD: [address] [place] [phone], Ph. 04/18/2021 Decreased Testosterone Level Blayne Mayfield MD: [address] [place] [phone], Ph. 04/08/2021 Decreased Testosterone Level Blayne Mayfield MD: [address] [place] [phone], Ph. 04/04/2021 Decreased Testosterone Level; Generalized Anxiety Disorder; Adult Pulmonary Langerhans Cell Histiocytosis Blayne Mayfield MD: [address] [place] [phone], Ph. 03/28/2021 Exposure to SARS-CoV-2 Blayne Mayfield MD: [address] [place] [phone], Ph. 03/25/2021 Decreased Testosterone Level Blayne Mayfield MD: [address], [place] [address], Ph. 03/18/2021 Decreased Testosterone Level Blayne Mayfield MD: [address], [place] [address], Ph. 03/10/2021 Decreased Testosterone Level; Depressive Disorder Blayne Mayfield MD: [address], [place] [address], Ph. 02/26/2021 Dyspnea Blayne Mayfield MD: [address] [place] [address], Ph. 02/05/2021 Decreased Testosterone Level; Dyspnea Blayne Mayfield MD: [address], [place] [address], Ph. 01/22/2021 Decreased Testosterone Level Blayne Mayfield MD: [address] [place] [address], Ph. 01/08/2021 Decreased Testosterone Level Blayne Mayfield MD: [address] [place] [address], Ph. 12/25/2020 Decreased Testosterone Level Blayne Mayfield MD: [address] [place] [address], Ph. 12/11/2020 Blayne Mayfield MD: [address] [place] [address], Ph. 11/27/2020 Blayne Mayfield MD: [address] [place] [address], Ph. 11/25/2020 Primary Erectile Dysfunction; Obstructive Sleep Apnea Syndrome Blayne Mayfield MD: [address] [place] [address], Ph. 09/19/2020 Degeneration of Lumbar Intervertebral Disc; Primary Erectile Dysfunction Blayne Mayfield MD: [address] [place] [address], Ph. 05/08/2020 Degeneration of Lumbar Intervertebral Disc; Primary Erectile Dysfunction Blayne Mayfield MD: [address] [place] [address], Ph. Social History Tobacco Smoking Status Light [...] NURSE Height 72 in 11/25/2020 10:20AM ESTABLISHED [id number] Height Weight BMI Blood Pressure 72 in 195 lbs 16 oz 26.6 kg/m2 117/78 mm[Hg] 09/19/2020 01:40PM ESTABLISHED [id number] Height Weight BMI Blood Pressure 72 in 201 lbs 27.3 kg/m2 126/76 mm[Hg] 05/08/2020 03:20PM ESTABLISHED [id number] Height Weight BMI Blood Pressure 72 in [...]
--- OUTSIDE RECORDS SUMMARY | 2021-05-04 20:51 | CCD ---
Author Organization Unknown Address [address] [place] [address] Phone [phone] Care Team Providers Care Government Clerk Name Role Phone MayfieldBlayne Unavailable Unavailable Allergies [...] Active Not avail able BD Regular Bevel [place] 18 gauge x 1" USE DIRECTED Active Not available buspirone 5 mg tablet Active Not availa ble doxycycline hyclate 100 mg capsule Take 1 [...] EVERY DAY Completed pantoprazole 40 mg tablet,delayed release Active Not available prednisone 20 mg tablet [...] Skin And/or Subcutaneous Tissue Active 05/12 History [place] Lesion of Lung Active 06/12/2014 History Finding [...] - Finding Active 04/22/2018 Hi story Dental Anglican Present Active 06/07/2018 Histo ry Pain in [...] Result Interpretation Description Value Range Status Address 03/28/2021 SARS CoV 2 RNA (COVID-19), QL, 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 machine adjuster-PCR, Respiratory Specimen Nasopharyngeal Normal Sars Cov 2 RNA not detected not detected [facility] [employer] [facility]: [address] [facility] 02/12/2021 CBC W/ Auto Diff Normal White Blood Count 9.2 10 4.0-10.0 10 [facility]: [address] [place] [address] Normal Red Blood Count 5.60 10 4.30-6.10 10 [facility]: [address] [place] [address] Low Hemoglobin 13.4 g/dL 13.5-17.5 g/dL [facility]: [address] [place] [address] Normal Hematocrit 44.7 % 42.0-52.0 % [facility]: [address] [place] [address] Low Mean Corpuscular Volume 79.8 fL 80.0 -96.0 fL [facility]: [address] [place] [address] Low Mean Corpuscular Hemoglobin 23.9 pg 27.0-33.0 pg [facility]: [address] [place] [address] Low Mean Corpuscular HGB Conc 30.0 g/dL 32.0-36.5 g/dL [facility]: [address] [place] [address] High Red Cell Distribution Width 15.3 % 1 1.5-14.5 % [facility]: [address] [place] [address] Normal Platelet Count, Automated 298 10 150 -450 10 [facility]: [address] [place] [address] Normal Neutrophils % 62.2 % 36.0-66.0 % [facility]: [address] [place] [address] Normal Lymph % 27.4 % 24.0-44.0 % [facility]: [address] [place] [address] High [place] % 8.8 % 2.0-8.0 % [facility]: 8[address] [facility] Normal Eos % 1.0 % 0.0-3.0 % [facility]: 0 [facility] Normal Baso % 0.3 % 0.0-1.0 % [facility]: 0 [facility] Normal Immature Granulocyte % 0.3 % 0-3.0 % [facility]: 0 [facility] Normal Nucleated Red Blood Cell % 0.0 % 0- 0 % [facility]: 0 [facility] Normal Neutrophils # 5.7 10 1.5-8.5 10 [facility]: 0 [facility] Normal Lymph # 2.5 10 1.5-5.0 10 [facility]: 0 [facility] Normal [place] # 0.8 10 0.0-0.8 10 [facility]: 8[address] [facility] Normal Eos # 0.1 10 0.0-0.[address] [facility]: 0 [facility] Normal Baso # 0.0 10 0.0-0.2 10 [facility]: 0 [facility] 02/12/2021 CMP, Serum or Plasma Normal Glucose, Fastin g 94 mg/dL 70-100 mg/dL [facility]: 83 0 [facility] Normal Blood Urea Nitrogen 13 mg/dL 7-18 mg /dL [facility]: 0 [facility] Normal Creatinine for GFR 1.11 mg/dL 0.70-1 .30 mg/dL [facility]: 0 [facility] Normal Glomerular Filtration Rate > 60.0 >5 6 [facility]: 0 [facility] Low Sodium Level 135 mEq/L 136-145 mEq/L [facility]: 0 [facility] Normal Potassium Serum 4.3 mEq/L 3.5-5.1 mE q/L [facility]: [address] [facility] Normal Chloride Level 101 mEq/L 98-107 mEq/ L [facility]: 8[address] [facility] Normal Carbon Dioxide Level 28 mEq/L 21-32 mEq/L [facility]: [address] [facility] Low Anion Gap 6 mEq/L 8-16 mEq/L [facility]: 8[address] [facility] Normal Calcium Level 8.8 mg/dL 8.5-10.1 mg/ dL [facility]: 8[address] [facility] Normal AST/SGOT 20 U/L 7-37 U/L [facility]: 8[address] [facility] Normal ALT/SGPT 18 U/L 12-78 U/L [facility]: 8[address] [facility] Normal Alkaline Phosphatase 114 U/L 45-117 U/L [facility]: 8[address] [facility] Normal Bilirubin,total 0.3 mg/dL 0.2-1.0 mg /dL [facility]: 8[address] [facility] Normal Total Protein 7.9 gm/dL 6.4-8.2 gm/d L [facility]: [address] [facility] Normal Albumin 3.6 gm/dL 3.2-5.2 gm/dL [facility]ena [facility]: 8[address] [facility] Normal Albumin/globulin Ratio 0.8 [facility]: 8[address] [facility] 02/12/2021 Testosterone, Total, Serum Normal Testoster one 536 NG/dL 241- 827 NG/dL [facility]: 83 0 [facility] 02/12/2021 PSA, Serum or Plasma Normal Prostat ic Specific Ag Monitor 0.30 NG/mL < 4.00 NG/mL [facility]: 8[address] [facility] 02/12/2021 TSH, Serum or Plasma Normal Thyroid Stimulating Hormone 1.980 uIU/mL 0.358-3.740 uIU/mL [facility] nter: 8[address] [facility] 02/12/2021 HbA1C (Hemoglobin a1C), Blood Normal Hemogl obin a1C 5.7 % Final [facility]: [address] [facility] High Estimated Average Glucose 117 mg/dL 60-110 mg/dL Final [facility]: 0 [facility] 06/27/2020 SARS CoV 2 RNA (COVID-19), QL, sewing machine adjuster-PCR, Respirat ory Specimen ABNORMAL Sars Cov 2 RNA detected not detected Final 02/24/2020 C Reactive Protein, QN, Serum or Plasma High C Reactive Protein Quantitativ 5.67 mg/dL 0.00-0.30 mg/dL Final [facility]: [address] [facility] Past Encounters 04/18/2021 Decreased Testosterone Level Blayne Mayfield MD: [address] [place] [phone], Ph. 04/08/2021 Decreased Testosterone Level Blayne Mayfield MD: [address] [place] [phone], Ph. 04/04/2021 Decreased Testosterone Level; Generalized Anxiety Disorder; Adult Pulmonary Langerhans Cell Histiocytosis Blayne Mayfield MD: [address] [place] [phone], Ph. 03/28/2021 Exposure to SARS-CoV-2 Blayne Mayfield MD: [address] [place] [phone], Ph. 03/25/2021 Decreased Testosterone Level Blayne Myafield MD: [address] [place] [phone], Ph. 03/18/2021 Decreased Testosterone Level Blayne Mayfield MD: [address] [place] [phone], Ph. 03/10/2021 Decreased Testosterone Level; Depressive Disorder Blayne Mayfield MD: [address] [place] [phone], Ph. 02/26/2021 Dyspnea Blayne Mayfield MD: [address] [place] [phone], Ph. 02/05/2021 Decreased Testosterone Level; Dyspnea Blayne Mayfield MD: [address] [place] [phone], Ph. 01/22/2021 Decreased Testosterone Level Blayne Mayfield MD: [address] [place] [phone], Ph. 01/08/2021 Decreased Testosterone Level Blayne Mayfield MD: [address] [place] [phone], Ph. 12/25/2020 Decreased Testosterone Level Blayne Mayfield MD: [address] [place] [phone], Ph. 12/11/2020 Blayne Mayfield MD: [address] [place] [phone], Ph. 11/27/2020 Blayne Mayfield MD: [address] [place] [phone], Ph. 11/25/2020 Primary Erectile Dysfunction; Obstructive Sleep Apnea Syndrome Blayne Mayfield MD: [address] [place] [phone], Ph. 09/19/2020 Degeneration of Lumbar Intervertebral Disc; Primary Erectile Dysfunction Blayne Mayfield MD: [address] [place] [phone], Ph. 05/08/2020 Degeneration of Lumbar Intervertebral Disc; Primary Erectile Dysfunction Blayne Mayfield MD: [address] [place] [phone], Ph. Social History Tobacco Smoking Status Light [...] NURSE Height 72 in 11/25/2020 10:20AM ESTABLISHED [id number] Height Weight BMI Blood Pressure 72 in 195 lbs 16 oz 26.6 kg/m2 117/78 mm[Hg] 09/19/2020 01:40PM ESTABLISHED [id number] Height Weight BMI Blood Pressure 72 in 201 lbs 27.3 kg/m2 126/76 mm[Hg] 05/08/2020 03:20PM ESTABLISHED [id number] Height Weight BMI Blood Pressure 72 in [...]
--- OUTSIDE RECORDS SUMMARY | 2021-05-04 20:51 | CCD ---
Continuity of Care Document (CCD) Created on: 04/17/2021 Sai Hearn External Reference #: [id number] : [id number] Sex: Male Author Author Sai FERGUSON M.D. Organization Unknown Address [address] [place] [address] Phone [phone] Care Team Providers Care Delivery Room Supervisor Name Role Phone Blayne Mayfield M.D. AUTM [phone] Hernandez Lobo M.D. AUTM [phone] AUTM Unavailable Problems Active Problems Provider Date Cellulitis and abscess of face Hung Han MD Onset: Difficulty speaking Hung Han MD Onset: 06/21/2014 Polyp of vocal cord or larynx Hung Han MD Onset: 05/2014 Sore throat symptom Hung Han MD Onset: 06/21/2014 Dysphagia Hung Han MD Onset: 06/21/2014 Difficulty speaking Hung Han MD Onset: 06/21/2014 Disorder of gastrointestinal tract Hung Han MD Onset : 10/04/2015 Social History Type Date Description Comments Sex Unknown Tobacco Use Start: Unknown Patient is a current cigarette smoker, smokes every day ETOH Use H/O Abuse (in remote past) ETOH Use 1-2 A Day (has recently cu t back) Recreational Drug Use History Of Tobacco Use Start: 07/12/87 Patient is a current smoker, smo kes some days Hx:1 ppd x 31 years. 3-4 cigs/day. Smoking Status Reviewed: 10/30/19 Patient is a current smoker, smokes some days Hx:1 ppd x 31 years. 3-4 cigs/day. Allergies and adverse reactions Description No Known Drug Allergies Medications Active Medications SIG Qnty Indications Ordering Provide r Date Lisinopril 10mg Tablets 1 by mouth every day Unknown Omeprazole 20mg Capsules DR 1 by mouth every day Unknown Multi For Him Capsules 1 tab by mouth every day Unknown Proair HFA 108(90Base) mcg/Act Aer osol 2 puffs four times a day as needed 17gm Kwadwo Santillan M.D. Furosemide 20mg Tablets 1 tab by mouth every day 3tabs Unknown CPAP Auto 5-15 [place] Unknown 00 Advair Diskus 500-50mcg/Dose Aeros ol 1 puff twice a day Unknown Immunizations Description No Information Available Vital Signs Date Vital Result Comment 10/30/2019 10:51am BP Systolic 114 mmHg BP Diastolic 78 mmHg Heart Rate 90 /min O2 % BldC Oximetry 95 % Body Temperature 98.7 F Height 72 inches 6'0" Weight 219.50 lb BMI (Body Mass Index) 29.8 kg/m2 [place] Body Weight 178 lb Weight 99.565 kg BSA (Body Surface Area) 2.22 m2 02/01/2019 11:38am BP Systolic 122 mmHg BP Diastolic 82 mmHg Heart Rate 72 /min O2 % BldC Oximetry 92 % Height 72 inches 6'0" Weight 225.00 lb BMI (Body Mass Index) 30.5 kg/m2 [place] Body Weight 178 lb Weight 102.060 kg BSA (Body Surface Area) 2.24 m2 Results Description No Information Available Procedures Date Code Description Status 04/02/2021 33351 Hospital Subsequent Care Level 2 Completed 04/01/2021 90423 Hospital Subsequent Care Level 2 Completed 03/31/2021 40474 Hospital Initial Care Level 1 Co mpleted Medical Devices Description No Information Available Encounters Type Date Location Provider Dx Diagnosis Office Visit 04/02/2021 1:[facility]a [facility] Sonia Martinez M.D. J96.01 Acute respiratory failure wi th hypoxia J18.9 Pneumonia, unspecified organ ism D72.829 Elevated white blood cell co unt, unspecified Office Visit 04/01/2021 1:23a [facility] Sonia Martinez M.D. J96.01 Acute respiratory failure wi th hypoxia J18.9 Pneumonia, unspecified organ ism D72.829 Elevated white blood cell co unt, unspecified Office Visit 03/31/2021 1:23a [facility] K Sonia hollingsworth M.D. J96.01 Acute respiratory failure wi th hypoxia J18.9 Pneumonia, unspecified organ ism D72.829 Elevated white blood cell co unt, unspecified Assessments Date Code Description Provider 04/02/2021 J96.01 Acute respiratory failure with h Sonia Rodriguez M.D. 04/02/2021 J18.9 Pneumonia, unspecified organism Sonia Ferguson M.D. 04/02/2021 D72.829 Elevated white blood cell count, unspecified Sonia Ferguson M.D. 04/01/2021 J96.01 Acute respiratory failure with h Sonia Rodriguez M.D. 04/01/2021 J18.9 Pneumonia, unspecified organism Sonia Ferguson M.D. 04/01/2021 D72.829 Elevated white blood cell count, unspecified Sonia Ferguson M.D. 03/31/2021 J96.01 Acute respiratory failure with h Sonia Rodriguez M.D. 03/31/2021 J18.9 Pneumonia, unspecified organism Sonia Ferguson M.D. 03/31/2021 D72.829 Elevated white blood cell count, unspecified Sonia Ferguson M.D. 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 Patient will be notified via phone of x-ray results. 2. Schedule PFT and CT scan for January. 3. Follow up after PFT and CT scan. Functional Status Functional Condition Comment Date Status Independent with all ADL's Activ e Independent with all IADL's Acti ve Mental Status Mental Condition Comment Date Status None Active Can understand information Activ e Referrals Description No Information Available
--- OUTSIDE RECORDS SUMMARY | 2021-05-04 20:51 | CCD ---
Author Organization Unknown Address [address] [place] [address] Phone [phone] Care Team Providers Care Upper Cutter Machine Name Role Phone MayfieldBlayne Unavailable Unavailable Allergies [...] Active Not avail able BD Regular Bevel [place] 18 gauge x 1" USE DIRECTED Active [...] 12 HOURS FOR 7 DAYS Completed 11/25/2020 omeprazole 20 mg capsule,delayed release TAKE ONE [...] Skin And/or Subcutaneous Tissue Active 05/12 History [place] Lesion of Lung Active 06/12/2014 History Finding of Upper Limb Active 06/12/2014 History Hypertensive Disorder Active 09/11/2014 History Abdominal Pain Active 10/01/2014 History Idiopathic Interstitial Pneumonia Active 10/12/2014 History Memory Finding Active 12/31/2014 History Onychomycosis Active 07/15/2015 History Pain in Thoracic Spine Active 11/12/2015 History Pain of Left Wrist Active 12/11/2015 History Procedure Active 04/02/2016 History Cardiovascular Finding Active 09/09/2016 History Hepatitis C Carrier Active 12/24/2016 History Body Mass Index 30+ - Obesity Active 12/27/2016 Hi story Impotence Active 01/27/2017 History Obstructive Sleep Apnea Syndrome Active 03/30/2017 History Dyspnea Active 08/05/2017 History Dental Caries on Smooth Surface Penetrating into Pulp Active 08/27/2017 History Influenza Vaccine Needed Active 04/22/2018 History Liver Enzyme Levels - Finding Active 04/22/2018 Hi story Dental Jewish Present Active 06/07/2018 Histo ry Pain in Left Lower Limb Active 08/05/2018 History Localized Enlarged Lymph Nodes Active 08/05/2018 H istory Chest Pain Active 08/05/2018 History Finding of General Energy Active 09/16/2018 Histor y Clinical Finding Active 11/23/2018 History Dental Arch Length [...] History SNOMED CT Concept Active History Procedures Notes: left knee surgery 2000, bone fusi on in neck 2002, 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: [address] [place] [address] Normal Red Blood Count 5.60 10 4.30-6.10 10 [facility]: [address] [place] [address] Low Hemoglobin 13.4 g/dL 13.5-17.5 g/dL [facility]: [address] [place] [address] Normal Hematocrit 44.7 % 42.0-52.0 % [facility]: [address] [place] [address] Low Mean Corpuscular Volume 79.8 fL 80.0 -96.0 fL [facility]: [address] [place] [address] Low Mean Corpuscular Hemoglobin 23.9 pg 27.0-33.0 pg [facility]: [address] [place] [address] Low Mean Corpuscular HGB Conc 30.0 g/dL 32.0-36.5 g/dL [facility]: [address] [place] [address] High Red Cell Distribution Width 15.3 % 1 1.5-14.5 % [facility]: [address] [place] [address] Normal Platelet Count, Automated 298 10 150 -450 10 [facility]: 0 [facility] Normal Neutrophils % 62.2 % 36.0-66.0 % [facility]: [address] [facility] Normal Lymph % 27.4 % 24.0-44.0 % [facility]: [address] [facility] High [place] % 8.8 % 2.0-8.0 % [facility]: [address] [facility] Normal Eos % 1.0 % 0.0-3.0 % [facility]: 0 [facility] Normal Baso % 0.3 % 0.0-1.0 % [facility]: 0 [facility] Normal Immature Granulocyte % 0.3 % 0-3.0 % [facility]: [address] [facility] Normal Nucleated Red Blood Cell % 0.0 % 0- 0 % [facility]: [address] [facility] Normal Neutrophils # 5.7 10 1.5-8.5 10 [facility]: [address] [facility] Normal Lymph # 2.5 10 1.5-5.0 10 [facility]: [address] [facility] Normal [place] # 0.8 10 0.0-0.8 10 [facility]: [address] [facility] Normal Eos # 0.1 10 0.0-0.5 10 [facility]: [address] [facility] Normal Baso # 0.0 10 0.0-0.2 10 [facility]: [address] [facility] 02/12/2021 CMP, Serum or Plasma Normal Glucose, Fastin g 94 mg/dL 70-100 mg/dL [facility]: 83 0 [facility] Normal Blood Urea Nitrogen 13 mg/dL 7-18 mg /dL [facility]: 0 [facility] Normal Creatinine for GFR 1.11 mg/dL 0.70-1 .30 mg/dL [facility]: 0 [facility] Normal Glomerular Filtration Rate > 60.0 >5 6 [facility]: 0 [facility] Low Sodium Level 135 mEq/L 136-145 mEq/L [facility]: 0 [facility] Normal Potassium Serum 4.3 mEq/L 3.5-5.1 mE q/L [facility]: [address] [facility] Normal Chloride Level 101 mEq/L 98-107 mEq/ L [facility]: 0 [facility] Normal Carbon Dioxide Level 28 mEq/L 21-32 mEq/L [facility]: 0 [facility] Low Anion Gap 6 mEq/L 8-16 mEq/L [facility]: 0 [facility] Normal Calcium Level 8.8 mg/dL 8.5-10.1 mg/ dL [facility]: [address] [facility] Normal AST/SGOT 20 U/L 7-37 U/L [facility]: [address] [facility] Normal ALT/SGPT 18 U/L 12-78 U/L [facility]: [address] [facility] Normal Alkaline Phosphatase 114 U/L 45-117 U/L [facility]: [address] [facility] Normal Bilirubin,total 0.3 mg/dL 0.2-1.0 mg /dL [facility]: [address] [facility] Normal Total Protein 7.9 gm/dL 6.4-8.2 gm/d L [facility]: [address] [facility] Normal Albumin 3.6 gm/dL 3.2-5.2 gm/dL [facility]: [address] [facility] Normal Albumin/globulin Ratio 0.8 [facility]: [address] [facility] 02/12/2021 Testosterone, Total, Serum Normal Testoster one 536 NG/dL 241- 827 NG/dL [facility]: 83 0 [facility] 02/12/2021 PSA, Serum or Plasma Normal Prostat ic Specific Ag Monitor 0.30 NG/mL < 4.00 NG/mL [facility]: [address] [facility] 02/12/2021 TSH, Serum or Plasma Normal Thyroid Stimulating Hormone 1.980 uIU/mL 0.358-3.740 uIU/mL [facility] Ce [facility]ter: 8[address] [facility] 02/12/2021 HbA1C (Hemoglobin a1C), Blood Normal Hemogl obin a1C 5.7 % [facility]: [address] [facility] High Estimated Average Glucose 117 mg/dL 60-110 mg/dL [facility]: [address] [facility] 06/27/2020 SARS CoV 2 RNA (COVID-19), QL, sports physical therapist-PCR, Respirat ory Specimen ABNORMAL Sars Cov 2 RNA detected not detected Final 02/24/2020 C Reactive Protein, QN, Serum or Plasma High C Reactive Protein Quantitativ 5.67 mg/dL 0.00-0.30 mg/dL Final [facility]: [address] [facility] Past Encounters 04/04/2021 Decreased Testosterone Level; Generalized Anxiety Disorder; Adult Pulmonary Langerhans Cell Histiocytosis Blayne Mayfield MD: [address] [place] [phone], Ph. 03/28/2021 Exposure to SARS-CoV-2 Blayne Mayfield MD: [address] [place] [address], Ph. 03/25/2021 Decreased Testosterone Level Blayne Mayfield MD: [address] [place] [address], Ph. 03/18/2021 Decreased Testosterone Level Blayne Mayfield MD: [address] [place] [phone], Ph. 03/10/2021 Decreased Testosterone Level; Depressive Disorder Blayne Mayfield MD: [address] [place] [address], Ph. 02/26/2021 Dyspnea Blayne Mayfield MD: [address] [place] [phone], Ph. 02/05/2021 Decreased Testosterone Level; Dyspnea Blayne Mayfield MD: [address] [place] [phone], Ph. 01/22/2021 Decreased Testosterone Level Blayne Mayfield MD: [address] [place] [address], Ph. 01/08/2021 Decreased Testosterone Level Blayne Mayfield MD: [address] [place] [address], Ph. 12/25/2020 Decreased Testosterone Level Blayne Mayfield MD: [address] [place] [phone], Ph. 12/11/2020 Blayne Mayfield MD: [address] [place] [address], Ph. 11/27/2020 Blayne Mayfield MD: [address] [place] [address], Ph. 11/25/2020 Primary Erectile Dysfunction; Obstructive Sleep Apnea Syndrome Blayne Mayfield MD: [address] [place] [phone], Ph. 09/19/2020 Degeneration of Lumbar Intervertebral Disc; Primary Erectile Dysfunction Blayne Mayfield MD: [address] [place] [phone], Ph. 05/08/2020 Degeneration of Lumbar Intervertebral Disc; Primary Erectile Dysfunction Blayne Mayfield MD: [address] [place] [phone], Ph. Social History Tobacco Smoking Status Light [...] Surgeries None recorded. Imaging None recorded. Vitals 04/04/2021 01:20PM HOSPITAL DISCHARGE Height Weight BMI [...] NURSE Height 72 in 11/25/2020 10:20AM ESTABLISHED [id number] Height Weight BMI Blood Pressure 72 in 195 lbs 16 oz 26.6 kg/m2 117/78 mm[Hg] 09/19/2020 01:40PM ESTABLISHED [id number] Height Weight BMI Blood Pressure 72 in 201 lbs 27.3 kg/m2 126/76 mm[Hg] 05/08/2020 03:20PM ESTABLISHED [id number] Height Weight BMI Blood Pressure 72 in [...]
--- OUTSIDE RECORDS SUMMARY | 2021-05-04 20:51 | CCD ---
Author Organization Unknown Address [address] [place] [address] Phone [phone] Care Team Providers Care Master Automotive Technician Name Role Phone MayfieldBlayne Unavailable Unavailable Allergies [...] Active Not avail able BD Regular Bevel [place] 18 gauge x 1" USE DIRECTED Active [...] Skin And/or Subcutaneous Tissue Active 05/12 History [place] Lesion of Lung Active 06/12/2014 History Finding [...] - Finding Active 04/22/2018 Hi story [facility] Present Active 06/07/2018 Histo ry Pain in [...] 03/28/2021 SARS CoV 2 RNA (COVID-19), QL, weight loss sales consultant-PCR, Respiratory Specimen Nasopharyngeal Normal Sars Cov 2 RNA not detected not detected [facility]: [address] , [place] 02/12/2021 CBC W/ Auto Diff Normal White Blood Count 9.2 10 4.0-10.0 10 [facility]: [address] [place] [address] Normal Red Blood Count 5.60 10 4.30-6.10 10 [facility]: [address] [place] [address] Low Hemoglobin 13.4 g/dL 13.5-17.5 g/dL [facility]: [address] [place] [address] Normal Hematocrit 44.7 % 42.0-52.0 % [facility]: [address] [place] [address] Low Mean Corpuscular Volume 79.8 fL 80.0 -96.0 fL [facility]: [address] [place] [address] Low Mean Corpuscular Hemoglobin 23.9 pg 27.0-33.0 pg [facility]: [address] [place] [address] Low Mean Corpuscular HGB Conc 30.0 g/dL 32.0-36.5 g/dL [facility]: [address] [place] [address] High Red Cell Distribution Width 15.3 % 1 1.5-14.5 % [facility]: [address] [place] [address] Normal Platelet Count, Automated 298 10 150 -450 10 [facility]: 0 [facility] Normal Neutrophils % 62.2 % 36.0-66.0 % [facility]: 0 [facility] Normal Lymph % 27.4 % 24.0-44.0 % [facility]: [address] [facility] High [place] % 8.8 % 2.0-8.0 % [facility]: [address] [facility] Normal Eos % 1.0 % 0.0-3.0 % [facility]: [address] [facility] Normal Baso % 0.3 % 0.0-1.0 % [facility]: [address] [facility] Normal Immature Granulocyte % 0.3 % 0-3.0 % [facility]: [address] [facility] Normal Nucleated Red Blood Cell % 0.0 % 0- 0 % [facility]: 8[address] [facility] Normal Neutrophils # 5.7 10 1.5-8.5 10 [facility]: [address] [facility] Normal Lymph # 2.5 10 1.5-5.[address] [facility]: [address] [facility] Normal [place] # 0.8 10 0.0-0.8 10 [facility]: [address] [facility] Normal Eos # 0.1 10 0.0-0.5 10 [facility]: [address] [facility] Normal Baso # 0.0 10 0.0-0.2 10 [facility]: [address] [facility] 02/12/2021 CMP, Serum or Plasma Normal Glucose, Fastin g 94 mg/dL 70-100 mg/dL [facility]: 83 0 [facility] Normal Blood Urea Nitrogen 13 mg/dL 7-18 mg /dL [facility]: 0 [facility] Normal Creatinine for GFR 1.11 mg/dL 0.70-1 .30 mg/dL [facility]: 8[address] [facility] Normal Glomerular Filtration Rate > 60.0 >5 6 [facility]: [address] [facility] Low Sodium Level 135 mEq/L 136-145 mEq/L [facility]: 0 [facility] Normal Potassium Serum 4.3 mEq/L 3.5-5.1 mE q/L [facility]: [address] [facility] Normal Chloride Level 101 mEq/L 98-107 mEq/ L [facility]: [address] [facility] Normal Carbon Dioxide Level 28 mEq/L 21-32 mEq/L [facility]: [address] [facility] Low Anion Gap 6 mEq/L 8-16 mEq/L [facility]: [address] [facility] Normal Calcium Level 8.8 mg/dL 8.5-10.1 mg/ dL [facility]: [address] [facility] Normal AST/SGOT 20 U/L 7-37 U/L [facility]: [address] [facility] Normal ALT/SGPT 18 U/L 12-78 U/L [facility]: [address] [facility] Normal Alkaline Phosphatase 114 U/L 45-117 U/L [facility]: [address] [facility] Normal Bilirubin,total 0.3 mg/dL 0.2-1.0 mg /dL [facility]: [address] [facility] Normal Total Protein 7.9 gm/dL 6.4-8.2 gm/d L [facility]: [address] [facility] Normal Albumin 3.6 gm/dL 3.2-5.2 gm/dL Abena l [facility]: [address] [facility] Normal Albumin/globulin Ratio 0.8 [facility]: [address] [facility] 02/12/2021 Testosterone, Total, Serum Normal Testoster one 536 NG/dL 241- 827 NG/dL [facility]: 83 0 [facility] 02/12/2021 PSA, Serum or Plasma Normal Prostat ic Specific Ag Monitor 0.30 NG/mL < 4.00 NG/mL [facility] Ce nter: 8[address] [facility] 02/12/2021 TSH, Serum or Plasma Normal Thyroid Stimulating Hormone 1.980 uIU/mL 0.358-3.740 uIU/mL [facility] nter: 8[address] [facility] 02/12/2021 HbA1C (Hemoglobin a1C), Blood Normal Hemogl obin a1C 5.7 % Final [facility]: [address] [facility] High Estimated Average Glucose 117 mg/dL 60-110 mg/dL Final [facility]: [address] [facility] 06/27/2020 SARS CoV 2 RNA (COVID-19), QL, weight loss sales consultant-PCR, Respirat ory Specimen ABNORMAL Sars Cov 2 RNA detected not detected Final 02/24/2020 C Reactive Protein, QN, Serum or Plasma High C Reactive Protein Quantitativ 5.67 mg/dL 0.00-0.30 mg/dL Final [facility]: [address] [facility] Past Encounters 04/08/2021 Decreased Testosterone Level Blyane Mayfield MD: [address] [place] [phone], Ph. 04/04/2021 Decreased Testosterone Level; Generalized Anxiety Disorder; Adult Pulmonary Langerhans Cell Histiocytosis Blayne Mayfield MD: [address] [place] [phone], Ph. 03/28/2021 Exposure to SARS-CoV-2 Blayne Mayfield MD: [address] [place] [phone], Ph. 03/25/2021 Decreased Testosterone Level Blayne Mayfield MD: [address] [place] [phone], Ph. 03/18/2021 Decreased Testosterone Level Blayne Mayfield MD: [address] [place] [phone], Ph. 03/10/2021 Decreased Testosterone Level; Depressive Disorder Blayne Mayfield MD: [address] [place] [phone], Ph. 02/26/2021 Dyspnea Blayne Mayfield MD: [address] [place] [phone], Ph. 02/05/2021 Decreased Testosterone Level; Dyspnea Blayne Mayfield MD: [address] [place] [phone], Ph. 01/22/2021 Decreased Testosterone Level Blayne Mayfield MD: [address] [place] [phone], Ph. 01/08/2021 Decreased Testosterone Level Blayne Mayfield MD: [address] [place] [phone], Ph. 12/25/2020 Decreased Testosterone Level Blayne Mayfield MD: [address] [place] [phone], Ph. 12/11/2020 Blayne Mayfield MD: [address] [place] [phone], Ph. 11/27/2020 Blayne Mayfield MD: [address] [place] [phone], Ph. 11/25/2020 Primary Erectile Dysfunction; Obstructive Sleep Apnea Syndrome Blayne Mayfield MD: [address] [place] [phone], Ph. 09/19/2020 Degeneration of Lumbar Intervertebral Disc; Primary Erectile Dysfunction Blayne Mayfield MD: [address] [place] [phone], Ph. 05/08/2020 Degeneration of Lumbar Intervertebral Disc; Primary Erectile Dysfunction Blayne Mayfield MD: [address] [place] [phone], Ph. Social History Tobacco Smoking Status Light [...] NURSE Height 72 in 11/25/2020 10:20AM ESTABLISHED [id number] Height Weight BMI Blood Pressure 72 in 195 lbs 16 oz 26.6 kg/m2 117/78 mm[Hg] 09/19/2020 01:40PM ESTABLISHED [id number] Height Weight BMI Blood Pressure 72 in 201 lbs 27.3 kg/m2 126/76 mm[Hg] 05/08/2020 03:20PM ESTABLISHED [id number] Height Weight BMI Blood Pressure 72 in [...]
--- OUTSIDE RECORDS SUMMARY | 2021-05-04 20:51 | CCD | Continuity of Care Document ---
Author Author Sai FERGUSON M.D. Organization Unknown Address [address] [place] [address] Phone [phone] Care Team Providers Care Engineer Internship Name Role Phone Blayne Mayfield M.D. AUTM [phone] Hernandez Lobo M.D. AUTM [phone] AUTM Unavailable Problems Active Problems Provider Date [...] lb BMI (Body Mass Index) 29.8 kg/m2 [place] Body Weight 178 lb Weight 99.565 kg BSA (Body Surface Area) 2.22 m2 02/01/2019 11:38am BP Systolic 122 mmHg BP Diastolic 82 mmHg Heart Rate 72 /min O2 % BldC Oximetry 92 % Height 72 inches 6'0" Weight 225.00 lb BMI (Body Mass Index) 30.5 kg/m2 [place] Body Weight 178 lb Weight 102.060 kg BSA (Body Surface Area) 2.24 m2 Results Description No Information Available Procedures Date Code Description Status 04/02/2021 28807 Hospital Subsequent Care Level 2 Completed 04/01/2021 56206 Hospital Subsequent Care Level 2 Completed 03/31/2021 49900 Hospital Initial Care Level 1 Co mpleted [...] Elevated white blood cell count, unspecified Sonia Freguson M.D. 03/31/2021 J96.01 Acute respiratory failure with [...]
--- OUTSIDE RECORDS SUMMARY | 2021-05-04 20:51 | CCD | Continuity of Care Document ---
Author Author Sai FERGUSON M.D. Organization Unknown Address [address] [place] [address] Phone [phone] Care Team Providers Care Pound Keeper Name Role Phone Blayne Mayfield M.D. AUTM [phone] Hernandez Lobo M.D. AUTM [phone] AUTM Unavailable Problems Active Problems Provider Date [...] lb BMI (Body Mass Index) 29.8 kg/m2 [place] Body Weight 178 lb Weight 99.565 kg BSA (Body Surface Area) 2.22 m2 02/01/2019 11:38am BP Systolic 122 mmHg BP Diastolic 82 mmHg Heart Rate 72 /min O2 % BldC Oximetry 92 % Height 72 inches 6'0" Weight 225.00 lb BMI (Body Mass Index) 30.5 kg/m2 [place] Body Weight 178 lb Weight 102.060 kg BSA (Body Surface Area) 2.24 m2 Results Description No Information Available Procedures Date Code Description Status 04/02/2021 67958 Hospital Subsequent Care Level 2 Completed 04/01/2021 28556 Hospital Subsequent Care Level 2 Completed 03/31/2021 89904 Hospital Initial Care Level 1 Co mpleted [...]
--- OUTSIDE RECORDS SUMMARY | 2021-05-04 20:51 | CCD ---
Author Organization Unknown Address [address] [place] [address] Phone [phone] Care Team Providers Care Veneer Layer Name Role Phone Chaparro Blayne Unavailable Unavailable Allergies Code Code System Name [...] Active Not avail able BD Regular Bevel [place] 18 gauge x 1" USE DIRECTED Active Not available doxycycline hyclate 100 mg tablet TAKE ONE TABLET BY MOUTH TWICE A DAY Completed escitalopram 10 mg tablet TAKE ONE TABLET BY MOUTH EVERY DAY Completed 11/09 escitalopram 20 mg tablet Completed 2020 fluticasone 250 mcg-salmeterol 50 mcg/do se blistr powdr for inhalation USE DIRECTED Active 11/25/2020 Not available Fluzone Quad 60 mcg (15 mcg x 4)/0.5 mL intramuscular susp. INJECT DIRECTED Completed 11/25/2020 furosemide 20 mg tablet TAKE ONE TABLET BY MOUTH EVERY DAY Completed 11/09 gabapentin 300 mg capsule TAKE ONE CAPSULE [...] TABLET BY MOUTH EVERY DAY Completed 11/09 methylprednisolone 4 mg tablets in a dos e pack TAKE DOSE BRIJESH DIRECTED ON SHEET Completed 11/09 naproxen 500 mg tablet TAKE ONE TABLET BY MOUTH EVERY 12 HOURS FOR 7 DAYS Completed 11/25/2020 omeprazole 20 mg capsule,delayed release TAKE ONE CAPSULE BY MOUTH EVERY DAY Completed pantoprazole 40 mg tablet,delayed release Active Not available prednisone 20 mg tablet TAKE THREE TABLETS BY MOUTH EVERY DAY DAYS 1 3 THEN TAKE TWO TABLETS BY MOUTH EVERY DAY DAYS 4 7 THEN TAKE ONE TABLET BY MOUTH EVERY DAY D Completed 11/25/2020 pregabalin 150 mg capsule TAKE ONE CAPSULE [...] every day by oral route as needed. Active Not available sulfamethoxazole 800 mg-trimethoprim 160 mg tablet TAKE 1 TABLET BY MOUTH TWO TIMES A DAY FOR 7 DAYS Active Not available terbinafine HCl 250 mg tablet TAKE 1 TABLET BY MOUTH ONCE DAILY Active Not a vailable testosterone cypionate 100 mg/mL intramu scular oil [...] Skin And/or Subcutaneous Tissue Active 05/12 History [place] Lesion of Lung Active 06/12/2014 History Finding [...] - Finding Active 04/22/2018 [facility] Present Active 06/07/2018 Histo ry Pain in [...] and ring finger surgery (1988), lung biopsy 2018 Results Lab Results Date Name Specimen Result Interpretation Description Value Range Status Address 02/12/2021 CBC W/ Auto Diff Normal White Blood Count 9.2 10 4.0-10.0 10 Final [facility]: [address] [facility] Normal Red Blood Count 5.60 10 4.30-6.10 10 [facility]: [address] [facility] Low Hemoglobin 13.4 g/dL 13.5-17.5 g/dL [facility]: [address] [facility] Normal Hematocrit 44.7 % 42.0-52.0 % [facility]: [address] [facility] Low Mean Corpuscular Volume 79.8 fL 80.0 -96.0 fL [facility]: [address] [place] [address] Low Mean Corpuscular Hemoglobin 23.9 pg 27.0-33.0 pg [facility]: [address] [place] [address] Low Mean Corpuscular HGB Conc 30.0 g/dL 32.0-36.5 g/dL [facility]: [address] [place] [address] High Red Cell Distribution Width 15.3 % 1 1.5-14.5 % [facility]: [address] [facility] Normal Platelet Count, Automated 298 10 150 -450 10 [facility]: [address] [facility] Normal Neutrophils % 62.2 % 36.0-66.0 % [facility]: [address] [facility] Normal Lymph % 27.4 % 24.0-44.0 % [facility]: [address] [facility] High [place] % 8.8 % 2.0-8.0 % [facility]: [address] [facility] Normal Eos % 1.0 % 0.0-3.0 % [facility]: [address] [facility] Normal Baso % 0.3 % 0.0-1.0 % [facility]: [address] [facility] Normal Immature Granulocyte % 0.3 % 0-3.0 % [facility]: [address] [facility] Normal Nucleated Red Blood Cell % 0.0 % 0- 0 % [facility]: [address] [facility] Normal Neutrophils # 5.7 10 1.5-8.5 10 [facility]: [address] [facility] Normal Lymph # 2.5 10 1.5-5.0 10 [facility]: [address] [facility] Normal [place] # 0.8 10 0.0-0.8 10 [facility]: [address] [facility] Normal Eos # 0.1 10 0.0-0.[address] [facility]: [address] [facility] Normal Baso # 0.0 10 0.0-0.2 10 [facility]: [address] [facility] 02/12/2021 CMP, Serum or Plasma Normal Glucose, Fastin g 94 mg/dL 70-100 mg/dL [facility]: [address] [facility] Normal Blood Urea Nitrogen 13 mg/dL 7-18 mg /dL [facility]: [address] [facility] Normal Creatinine for GFR 1.11 mg/dL 0.70-1 .30 mg/dL [facility]: [address] [facility] Normal Glomerular Filtration Rate > 60.0 >5 6 [facility]: [address] [facility] Low Sodium Level 135 mEq/L 136-145 mEq/L [facility]: [address] [facility] Normal Potassium Serum 4.3 mEq/L 3.5-5.1 mE q/L [facility]: [address] [facility] Normal Chloride Level 101 mEq/L 98-107 mEq/ L [facility]: [address] [facility] Normal Carbon Dioxide Level 28 mEq/L 21-32 mEq/L [facility]: 0 [facility] Low Anion Gap 6 mEq/L 8-16 mEq/L [facility]: 0 [facility] Normal Calcium Level 8.8 mg/dL 8.5-10.1 mg/ dL [facility]: [address] [facility] Normal AST/SGOT 20 U/L 7-37 U/L [facility]: [address] [facility] Normal ALT/SGPT 18 U/L 12-78 U/L [facility]: [address] [facility] Normal Alkaline Phosphatase 114 U/L 45-117 U/L [facility]: [address] [facility] Normal Bilirubin,total 0.3 mg/dL 0.2-1.0 mg /dL [facility]: [address] [facility] Normal Total Protein 7.9 gm/dL 6.4-8.2 gm/d L [facility]: [address] [facility] Normal Albumin 3.6 gm/dL 3.2-5.2 gm/dL [facility]: [address] [facility] Normal Albumin/globulin Ratio 0.8 [facility]: [address] [facility] 02/12/2021 Testosterone, Total, Serum Normal Testoster one 536 NG/dL 241- 827 NG/dL [facility]: [address] [facility] 02/12/2021 PSA, Serum or Plasma Normal Prostat ic Specific Ag Monitor 0.30 NG/mL < 4.00 NG/mL [facility] nter: [address] [facility] 02/12/2021 TSH, Serum or Plasma Normal Thyroid Stimulating Hormone 1.980 uIU/mL 0.358-3.740 uIU/mL [facility] nter: [address] [facility] 02/12/2021 HbA1C (Hemoglobin a1C), Blood Normal Hemogl obin a1C 5.7 % [facility]: [address] [facility] High Estimated Average Glucose 117 mg/dL 60-110 mg/dL [facility]: [address] [facility] 06/27/2020 SARS CoV 2 RNA (COVID-19), QL, project coordinator-PCR, Respirat ory Specimen ABNORMAL Sars Cov 2 RNA detected not detected Final 02/24/2020 C Reactive Protein, QN, Serum or Plasma High C Reactive Protein Quantitativ 5.67 mg/dL 0.00-0.30 mg/dL [facility]: [address] [facility] Past Encounters 03/18/2021 Decreased Testosterone Level Blayne Mayfield MD: [address] [place] [address], Ph. 03/10/2021 Decreased Testosterone Level; Depressive Disorder Blayne Mayfield MD: [address] [place] [address], Ph. 02/26/2021 Dyspnea Blayne Mayfield MD: [address] [place] [address], Ph. 02/05/2021 Decreased Testosterone Level; Dyspnea Blayne Mayfield MD: [address] [place] [address], Ph. 01/22/2021 Decreased Testosterone Level Blayne Mayfield MD: [address] [place] [phone], Ph. 01/08/2021 Decreased Testosterone Level Blayne Mayfield MD: [address] [place] [phone], Ph. 12/25/2020 Decreased Testosterone Level Blayne Mayfield MD: [address] [place] [phone], Ph. 12/11/2020 Blayne Mayfield MD: [address] [place] [phone], Ph. 11/27/2020 Blayne Mayfield MD: [address] [place] [phone], Ph. 11/25/2020 Primary Erectile Dysfunction; Obstructive Sleep Apnea Syndrome Blayne Mayfield MD: [address] [place] [address], Ph. 09/19/2020 Degeneration of Lumbar Intervertebral Disc; Primary Erectile Dysfunction Blayne Mayfield MD: [address] [place] [address], Ph. 05/08/2020 Degeneration of Lumbar Intervertebral Disc; Primary Erectile Dysfunction Blayne Mayfield MD: [address] [place] [address], Ph. Social History Tobacco Smoking Status Light [...] Surgeries None recorded. Imaging None recorded. Vitals 03/10/2021 11:00AM ED FOLLOW-UP Height Weight BMI Blood Pressure 72 in 212 lbs 16 oz 28.9 kg/m2 121/73 mm[Hg] 02/05/2021 02:00PM SAME DAY 20 Height Weight BMI Blood Pressure 72 in 216 lbs 6 oz 29.3 kg/m2 133/91 mm[Hg] 12/11/2020 10:30AM NURSE Height 72 in 11/25/2020 10:20AM ESTABLISHED [id number] Height Weight BMI Blood Pressure 72 in 195 lbs 16 oz 26.6 kg/m2 117/78 mm[Hg] 09/19/2020 01:40PM ESTABLISHED [id number] Height Weight BMI Blood Pressure 72 in 201 lbs 27.3 kg/m2 126/76 mm[Hg] 05/08/2020 03:20PM ESTABLISHED [id number] Height Weight BMI Blood Pressure 72 in [...]
--- OUTSIDE RECORDS SUMMARY | 2021-05-04 20:51 | CCD ---
Author Organization Unknown Address [address] [place] [address] Phone [phone] Care Team Providers Care Evaporator Repairer Name Role Phone Chaparro Blayne Unavailable Unavailable [...] Active Not avail able BD Regular Bevel [place] 18 gauge x 1" USE DIRECTED Active [...] D Completed 11/25/2020 pregabalin 150 mg capsule Active Not av ailable pregabalin 200 mg capsule TAKE ONE CAPSULE [...] Skin And/or Subcutaneous Tissue Active 05/12 History [place] Lesion of Lung Active 06/12/2014 History Finding [...] Blood Count 9.2 10 4.0-10.0 10 Final [facility]: [address] [facility] Normal Red Blood Count 5.60 10 4.30-6.10 10 [facility]: [address] [facility] Low Hemoglobin 13.4 g/dL 13.5-17.5 g/dL [facility]: [address] [facility] Normal Hematocrit 44.7 % 42.0-52.0 % [facility]: [address] [place] [address] Low Mean Corpuscular Volume 79.8 fL 80.0 -96.0 fL [facility]: [address] [place] [address] Low Mean Corpuscular Hemoglobin 23.9 pg 27.0-33.0 pg [facility]: [address] [place] [address] Low Mean Corpuscular HGB Conc 30.0 g/dL 32.0-36.5 g/dL [facility]: [address] [place] [address] High Red Cell Distribution Width 15.3 % 1 1.5-14.5 % [facility]: [address] [place] [address] Normal Platelet Count, Automated 298 10 150 -450 10 [facility]: 0 [facility] Normal Neutrophils % 62.2 % 36.0-66.0 % [facility]: [address] [facility] Normal Lymph % 27.4 % 24.0-44.0 % [facility]: [address] [facility] High [place] % 8.8 % 2.0-8.0 % Final [facility]: 0 [facility] Normal Eos % 1.0 % 0.0-3.0 % [facility]: 0 [facility] Normal Baso % 0.3 % 0.0-1.0 % [facility]: 0 [facility] Normal Immature Granulocyte % 0.3 % 0-3.0 % [facility]: 0 [facility] Normal Nucleated Red Blood Cell % 0.0 % 0- 0 % [facility]: [address] [place] [address] Normal Neutrophils # 5.7 10 1.5-8.5 10 [facility]: [address] [facility] Normal Lymph # 2.5 10 1.5-5.0 10 [facility]: [address] [facility] Normal [place] # 0.8 10 0.0-0.8 10 [facility]: [address] [facility] Normal Eos # 0.1 10 0.0-0.[address] [facility]: [address] [facility] Normal Baso # 0.0 10 0.0-0.2 10 [facility]: [address] [facility] 02/12/2021 CMP, Serum or Plasma Normal Glucose, Fastin g 94 mg/dL 70-100 mg/dL [facility]: [address] [facility] Normal Blood Urea Nitrogen 13 mg/dL 7-18 mg /dL [facility]: 0 [facility] Normal Creatinine for GFR 1.11 mg/dL 0.70-1 .30 mg/dL [facility]: [address] [facility] Normal Glomerular Filtration Rate > 60.0 >5 6 [facility]: 0 [facility] Low Sodium Level 135 mEq/L 136-145 mEq/L [facility]: 0 [facility] Normal Potassium Serum 4.3 mEq/L 3.5-5.1 mE q/L [facility]: [address] [facility] Normal Chloride Level 101 mEq/L 98-107 mEq/ L [facility]: [address] [facility] Normal Carbon Dioxide Level 28 mEq/L 21-32 mEq/L [facility]: 0 [facility] Low Anion Gap 6 mEq/L 8-16 mEq/L [facility]: 0 [facility] Normal Calcium Level 8.8 mg/dL 8.5-10.1 mg/ dL [facility]: 0 [facility] Normal AST/SGOT 20 U/L 7-37 U/L [facility]: [address] [facility] Normal ALT/SGPT 18 U/L 12-78 U/L [facility]: [address] [facility] Normal Alkaline Phosphatase 114 U/L 45-117 U/L [facility]: [address] [facility] Normal Bilirubin,total 0.3 mg/dL 0.2-1.0 mg /dL [facility]: [address] [facility] Normal Total Protein 7.9 gm/dL 6.4-8.2 gm/d L [facility]: [address] [facility] Normal Albumin 3.6 gm/dL 3.2-5.2 gm/dL [facility]: [address] [facility] Normal Albumin/globulin Ratio 0.8 [facility]: [address] [facility] 02/12/2021 Testosterone, Total, Serum Normal Testoster one 536 NG/dL 241- 827 NG/dL [facility]: [address] 0 [facility] 02/12/2021 PSA, Serum or Plasma Normal Prostat ic Specific Ag Monitor 0.30 NG/mL < 4.00 NG/mL [facility] nter: [address] [facility] 02/12/2021 TSH, Serum or Plasma Normal Thyroid Stimulating Hormone 1.980 uIU/mL 0.358-3.740 uIU/mL [facility] nter: [address] [facility] 02/12/2021 HbA1C (Hemoglobin a1C), Blood Normal Hemogl obin a1C 5.7 % [facility]: [address] [facility] High Estimated Average Glucose 117 mg/dL 60-110 mg/dL [facility]: [address] [facility] 06/27/2020 SARS CoV 2 RNA (COVID-19), QL, ground water technician-PCR, Respirat ory Specimen ABNORMAL Sars Cov 2 RNA detected not detected Final 02/24/2020 C Reactive Protein, QN, Serum or Plasma High C Reactive Protein Quantitativ 5.67 mg/dL 0.00-0.30 mg/dL [facility]: [address] [facility] Past Encounters 03/25/2021 Decreased Testosterone Level Blayne Mayfield MD: [address] [place] [address], Ph. 03/18/2021 Decreased Testosterone Level Blayne Mayfield MD: [address] [place] [address], Ph. 03/10/2021 Decreased Testosterone Level; Depressive Disorder Blayne Mayfield MD: [address] [place] [address], Ph. 02/26/2021 Dyspnea Blayne Mayfield MD: [address] [place] [phone], Ph. 02/05/2021 Decreased Testosterone Level; Dyspnea Blayne Mayfield MD: [address] [place] [address], Ph. 01/22/2021 Decreased Testosterone Level Blayne Mayfield MD: [address] [place] [address], Ph. 01/08/2021 Decreased Testosterone Level Blayne Mayfield MD: [address] [place] [phone], Ph. 12/25/2020 Decreased Testosterone Level Blayne Mayfield MD: [address] [place] [address], Ph. 12/11/2020 Blayne Mayfield MD: [address] [place] [address], Ph. 11/27/2020 Blayne Mayfield MD: [address] [place] [address], Ph. 11/25/2020 Primary Erectile Dysfunction; Obstructive Sleep Apnea Syndrome Blayne Mayfield MD: [address] [place] [address], Ph. 09/19/2020 Degeneration of Lumbar Intervertebral Disc; Primary Erectile Dysfunction Blayne Mayfield MD: [address] [place] [address], Ph. 05/08/2020 Degeneration of Lumbar Intervertebral Disc; Primary Erectile Dysfunction Blayne Mayfield MD: [address] [place] [address], Ph. Social History Tobacco Smoking Status Light [...] Surgeries None recorded. Imaging None recorded. Vitals 03/25/2021 11:00AM NURSE Height Blood Pressure 72 in 122/74 mm[Hg] 03/10/2021 11:00AM ED FOLLOW-UP Height Weight BMI Blood Pressure 72 in 212 lbs 16 oz 28.9 kg/m2 121/73 mm[Hg] 02/05/2021 02:00PM SAME DAY 20 Height Weight BMI Blood Pressure 72 in 216 lbs 6 oz 29.3 kg/m2 133/91 mm[Hg] 12/11/2020 10:30AM NURSE Height 72 in 11/25/2020 10:20AM ESTABLISHED [id number] Height Weight BMI Blood Pressure 72 in 195 lbs 16 oz 26.6 kg/m2 117/78 mm[Hg] 09/19/2020 01:40PM ESTABLISHED [id number] Height Weight BMI Blood Pressure 72 in 201 lbs 27.3 kg/m2 126/76 mm[Hg] 05/08/2020 03:20PM ESTABLISHED [id number] Height Weight BMI Blood Pressure 72 in [...]
--- OUTSIDE RECORDS SUMMARY | 2021-05-04 20:51 | CCD ---
Author Organization Unknown Address [address] [place] [address] Phone [phone] Care Team Providers Care Pyrotechnic Assembler Name Role Phone ChaparroBlayne Unavailable Unavailable Allergies Code Code System Name [...] Active Not avail able BD Regular Bevel [place] 18 gauge x 1" USE DIRECTED Active Not available doxycycline hyclate 100 mg tablet TAKE ONE TABLET BY MOUTH TWICE A DAY Completed escitalopram 10 mg tablet TAKE ONE TABLET BY MOUTH EVERY DAY Completed 11/09 escitalopram 20 mg tablet Active Not av ailable fluticasone 250 mcg-salmeterol 50 mcg/do se blistr [...] ONE TABLET BY MOUTH TWICE A DAY Active No t available lisinopril 10 mg tablet TAKE ONE TABLET [...] TAKE ONE CAPSULE BY MOUTH EVERY DAY Active Not available pantoprazole 40 mg tablet,delayed releas e TAKE [...] testosterone cypionate 100 mg/mL intramu scular oil Inject 1 mL every 2 weeks by intramuscular route. Active Not available tizanidine 2 mg tablet [...] Skin And/or Subcutaneous Tissue Active 05/12 History Rudyard Lesion of Lung Active 06/12/2014 History Finding [...] - Finding Active 04/22/2018 Hi story Dental Sikhism Present Active 06/07/2018 Histo ry Pain in [...] Blood Count 9.2 10 4.0-10.0 10 Final [facility]: [address] [facility] Normal Red Blood Count 5.60 10 4.30-6.10 10 [facility]: [address] [facility] Low Hemoglobin 13.4 g/dL 13.5-17.5 g/dL [facility]: [address] [facility] Normal Hematocrit 44.7 % 42.0-52.0 % [facility]: [address] [place] [address] Low Mean Corpuscular Volume 79.8 fL 80.0 -96.0 fL [facility]: [address] [place] [address] Low Mean Corpuscular Hemoglobin 23.9 pg 27.0-33.0 pg [facility]: [address] [place] [address] Low Mean Corpuscular HGB Conc 30.0 g/dL 32.0-36.5 g/dL [facility]: [address] [place] [address] High Red Cell Distribution Width 15.3 % 1 1.5-14.5 % [facility]: [address] [place] [address] Normal Platelet Count, Automated 298 10 150 -450 10 [facility]: [address] [facility] Normal Neutrophils % 62.2 % 36.0-66.0 % [facility]: [address] [facility] Normal Lymph % 27.4 % 24.0-44.0 % [facility]: [address] [facility] High [place] % 8.8 % 2.0-8.0 % [facility]: [address] [facility] Normal Eos % 1.0 % 0.0-3.0 % [facility]: [address] [facility] Normal Baso % 0.3 % 0.0-1.0 % [facility]: [address] [place] [address] Normal Immature Granulocyte % 0.3 % 0-3.0 % [facility]: [address] [facility] Normal Nucleated Red Blood Cell % 0.0 % 0- 0 % [facility]: [address] [place] [address] Normal Neutrophils # 5.7 10 1.5-8.5 10 [facility]: [address] [facility] Normal Lymph # 2.5 10 1.5-5.0 10 [facility]: [address] [facility] Normal [place] # 0.8 10 0.0-0.8 10 [facility]: [address] [facility] Normal Eos # 0.1 10 0.0-0.5 10 [facility]: [address] [facility] Normal Baso # 0.0 10 0.0-0.2 10 [facility]: [address] [facility] 02/12/2021 CMP, Serum or Plasma Normal Glucose, Fastin g 94 mg/dL 70-100 mg/dL [facility]: [address] [facility] Normal Blood Urea Nitrogen 13 mg/dL 7-18 mg /dL [facility]: [address] [facility] Normal Creatinine for GFR 1.11 mg/dL 0.70-1 .30 mg/dL [facility]: [address] [facility] Normal Glomerular Filtration Rate > 60.0 >5 6 [facility]: [address] [facility] Low Sodium Level 135 mEq/L 136-145 mEq/L [facility]: [address] [facility] Normal Potassium Serum 4.3 mEq/L 3.5-5.1 mE q/L [facility]: [address] [facility] Normal Chloride Level 101 mEq/L 98-107 mEq/ L [facility]: [address] [facility] Normal Carbon Dioxide Level 28 mEq/L 21-32 mEq/L [facility]: [address] [facility] Low Anion Gap 6 mEq/L 8-16 mEq/L [facility]: [address] [facility] Normal Calcium Level 8.8 mg/dL 8.5-10.1 mg/ dL [facility]: [address] [facility] Normal AST/SGOT 20 U/L 7-37 U/L [facility]: [address] [facility] Normal ALT/SGPT 18 U/L 12-78 U/L [facility]: [address] [facility] Normal Alkaline Phosphatase 114 U/L 45-117 U/L [facility]: [address] [facility] Normal Bilirubin,total 0.3 mg/dL 0.2-1.0 mg /dL [facility]: [address] [facility] Normal Total Protein 7.9 gm/dL 6.4-8.2 gm/d L [facility]: [address] [facility] Normal Albumin 3.6 gm/dL 3.2-5.2 gm/dL [facility]: [address] [facility] Normal Albumin/globulin Ratio 0.8 [facility]: [address] [facility] 02/12/2021 Testosterone, Total, Serum Normal Testoster one 536 NG/dL 241- 827 NG/dL [facility]: [address] [facility] 02/12/2021 PSA, Serum or Plasma Normal Prostat ic Specific Ag Monitor 0.30 NG/mL < 4.00 NG/mL [facility] nter: [address] [facility] 02/12/2021 TSH, Serum or Plasma Normal Thyroid Stimulating Hormone 1.980 uIU/mL 0.358-3.740 uIU/mL [facility] nter: [address] [facility] 02/12/2021 HbA1C (Hemoglobin a1C), Blood Normal Hemogl obin a1C 5.7 % [facility]: [address] [facility] High Estimated Average Glucose 117 mg/dL 60-110 mg/dL [facility]: [address] [facility] 06/27/2020 SARS CoV 2 RNA (COVID-19), QL, content editor-PCR, Respirat ory Specimen ABNORMAL Sars Cov 2 RNA detected not detected Final [facility] ([employer] [facility]): [address] [place] [address] 02/24/2020 C Reactive Protein, QN, Serum or Plasma High C Reactive Protein Quantitativ 5.67 mg/dL 0.00-0.30 mg/dL Final [facility]: [address] [facility] Past Encounters 02/26/2021 Dyspnea Blayne Mayfield MD: [address] [place] [phone], Ph. 02/05/2021 Decreased Testosterone Level; Dyspnea Blayne Mayfield MD: [address] [place] [phone], Ph. 01/22/2021 Decreased Testosterone Level Blayne Mayfield MD: [address] [place] [phone], Ph. 01/08/2021 Decreased Testosterone Level Blayne Mayfield MD: [address] [place] [phone], Ph. 12/25/2020 Decreased Testosterone Level Blayne Mayfield MD: [address] [place] [phone], Ph. 12/11/2020 Blayne Mayfield MD: [address] [place] [phone], Ph. 11/27/2020 Blayne Mayfield MD: [address] [place] [phone], Ph. 11/25/2020 Primary Erectile Dysfunction; Obstructive Sleep Apnea Syndrome Blayne Mayfield MD: [address] [place] [phone], Ph. 09/19/2020 Degeneration of Lumbar Intervertebral Disc; Primary Erectile Dysfunction Blayne Mayfield MD: [address] [place] [phone], Ph. 05/08/2020 Degeneration of Lumbar Intervertebral Disc; Primary Erectile Dysfunction Blayne Mayfield MD: [address] [place] [phone], Ph. Social History Tobacco Smoking Status Light [...] Surgeries None recorded. Imaging None recorded. Vitals 02/05/2021 02:00PM SAME DAY 20 Height Weight BMI Blood Pressure 72 in 216 lbs 6 oz 29.3 kg/m2 133/91 mm[Hg] 12/11/2020 10:30AM NURSE Height 72 in 11/25/2020 10:20AM ESTABLISHED [id number] Height Weight BMI Blood Pressure 72 in 195 lbs 16 oz 26.6 kg/m2 117/78 mm[Hg] 09/19/2020 01:40PM ESTABLISHED [id number] Height Weight BMI Blood Pressure 72 in 201 lbs 27.3 kg/m2 126/76 mm[Hg] 05/08/2020 03:20PM ESTABLISHED [id number] Height Weight BMI Blood Pressure 72 in [...]
--- OUTSIDE RECORDS SUMMARY | 2021-05-04 20:51 | CCD ---
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 Nasopharyngeal Normal Sars Cov 2 RNA not detected not detected [facility]: [address] , [place] 02/12/2021 CBC W/ Auto Diff Normal White Blood Count 9.2 10 4.0-10.0 10 [facility]: [address] [place] [address] Normal Red Blood Count 5.60 10 4.30-6.10 10 [facility]: [address] [place] [address] Low Hemoglobin 13.4 g/dL 13.5-17.5 g/dL [facility]: [address] [place] [address] Normal Hematocrit 44.7 % 42.0-52.0 % [facility]: [address] [place] [address] Low Mean Corpuscular Volume 79.8 fL 80.0 -96.0 fL [facility]: [address] [place] [address] Low Mean Corpuscular Hemoglobin 23.9 pg 27.0-33.0 pg [facility]: [address] [place] [address] Low Mean Corpuscular HGB Conc 30.0 g/dL 32.0-36.5 g/dL [facility]: [address] [place] [address] High Red Cell Distribution Width 15.3 % 1 1.5-14.5 % [facility]: [address] [place] [address] Normal Platelet Count, Automated 298 10 150 -450 10 [facility]: 0 [facility] Normal Neutrophils % 62.2 % 36.0-66.0 % [facility]: 0 [facility] Normal Lymph % 27.4 % 24.0-44.0 % [facility]: [address] [facility] High [place] % 8.8 % 2.0-8.0 % [facility]: 8[address] [facility] Normal Eos % 1.0 % 0.0-3.0 % [facility]: 8[address] [facility] Normal Baso % 0.3 % 0.0-1.0 % [facility]: 8[address] [facility] Normal Immature Granulocyte % 0.3 % 0-3.0 % [facility]: 8[address] [facility] Normal Nucleated Red Blood Cell % 0.0 % 0- 0 % [facility]: 8[address] [facility] Normal Neutrophils # 5.7 10 1.5-8.5 10 [facility]: 8[address] [facility] Normal Lymph # 2.5 10 1.5-5.0 10 [facility]: [address] [facility] Normal [place] # 0.8 10 0.0-0.8 10 [facility]: [address] [facility] Normal Eos # 0.1 10 0.0-0.[address] [facility]: 8[address] [facility] Normal Baso # 0.0 10 0.0-0.2 10 [facility]: 830 [facility] 02/12/2021 CMP, Serum or Plasma Normal Glucose, Fastin g 94 mg/dL 70-100 mg/dL [facility]: 83 0 [facility] Normal Blood Urea Nitrogen 13 mg/dL 7-18 mg /dL [facility]: 0 [facility] Normal Creatinine for GFR 1.11 mg/dL 0.70-1 .30 mg/dL [facility]: [address] [facility] Normal Glomerular Filtration Rate > 60.0 >5 6 [facility]: [address] [facility] Low Sodium Level 135 mEq/L 136-145 mEq/L [facility]: 0 [facility] Normal Potassium Serum 4.3 mEq/L 3.5-5.1 mE q/L [facility]: 8[address] [facility] Normal Chloride Level 101 mEq/L 98-107 mEq/ L [facility]: [address] [facility] Normal Carbon Dioxide Level 28 mEq/L 21-32 mEq/L [facility]: [address] [facility] Low Anion Gap 6 mEq/L 8-16 mEq/L [facility]: [address] [facility] Normal Calcium Level 8.8 mg/dL 8.5-10.1 mg/ dL [facility]: [address] [facility] Normal AST/SGOT 20 U/L 7-37 U/L [facility]: 8[address] [facility] Normal ALT/SGPT 18 U/L 12-78 U/L [facility]: [address] [facility] Normal Alkaline Phosphatase 114 U/L 45-117 U/L [facility]: 8[address] [facility] Normal Bilirubin,total 0.3 mg/dL 0.2-1.0 mg /dL [facility]: 8[address] [facility] Normal Total Protein 7.9 gm/dL 6.4-8.2 gm/d L [facility]: [address] [facility] Normal Albumin 3.6 gm/dL 3.2-5.2 gm/dL [facility]: [address] [facility] Normal Albumin/globulin Ratio 0.8 [facility]: [address] [facility] 02/12/2021 Testosterone, Total, Serum Normal Testoster one 536 NG/dL 241- 827 NG/dL [facility]: 83 0 [facility] 02/12/2021 PSA, Serum or Plasma Normal Prostat ic Specific Ag Monitor 0.30 NG/mL < 4.00 NG/mL [facility] nter: 830 [facility] 02/12/2021 TSH, Serum or Plasma Normal Thyroid Stimulating Hormone 1.980 uIU/mL 0.358-3.740 uIU/mL [facility] nter: 8[address] [facility] 02/12/2021 HbA1C (Hemoglobin a1C), Blood Normal Hemogl obin a1C 5.7 % Final [facility]: [address] [facility] High Estimated Average Glucose 117 mg/dL 60-110 mg/dL Final [facility]: [address] [facility] 06/27/2020 SARS CoV 2 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: 830 [facility] Past Encounters 04/08/2021 Decreased Testosterone Level Blayne Mayfield MD: [address] [place] [phone], Ph. 04/04/2021 Decreased Testosterone Level; Generalized Anxiety Disorder; Adult Pulmonary [place] Cell Histiocytosis Blayne Mayfield MD: [address] [place] [phone], Ph. 03/28/2021 Exposure to SARS-CoV-2 Blayne Mayfield MD: [address] [place] [phone], Ph. 03/25/2021 Decreased Testosterone Level Blayne Mayfield MD: [address] [place] [phone], Ph. 03/18/2021 Decreased Testosterone Level Blayne Mayfield MD: [address] [place] [phone], Ph. 03/10/2021 Decreased Testosterone Level; Depressive Disorder Blayne Mayfield MD: [address] [place] [phone], Ph. 02/26/2021 Dyspnea Blayne Mayfield MD: [address] [place] [phone], Ph. 02/05/2021 Decreased Testosterone Level; Dyspnea Blayne Mayfield MD: [address] [place] [phone], Ph. 01/22/2021 Decreased Testosterone Level Blayne Mayfield MD: [address] [place] [phone], Ph. 01/08/2021 Decreased Testosterone Level Blayne Mayfield MD: [address] [place] [phone], Ph. 12/25/2020 Decreased Testosterone Level Blayne Mayfield MD: [address] [place] [phone], Ph. 12/11/2020 Blayne Mayfield MD: [address] [place] [phone], Ph. 11/27/2020 Blayne Mayfield MD: [address] [place] [phone], Ph. 11/25/2020 Primary Erectile Dysfunction; Obstructive Sleep Apnea Syndrome Blayne Mayfield MD: [address] [place] [phone], Ph. 09/19/2020 Degeneration of Lumbar Intervertebral Disc; Primary Erectile Dysfunction Blayne Mayfield MD: [address] [place] [phone], Ph. 05/08/2020 Degeneration of Lumbar Intervertebral Disc; Primary Erectile Dysfunction Blayne Mayfield MD: [address] [place] [phone], Ph. Social History Tobacco Smoking Status Light [...] NURSE Height 72 in 11/25/2020 10:20AM ESTABLISHED [id number] Height Weight BMI Blood Pressure 72 in 195 lbs 16 oz 26.6 kg/m2 117/78 mm[Hg] 09/19/2020 01:40PM ESTABLISHED [id number] Height Weight BMI Blood Pressure 72 in 201 lbs 27.3 kg/m2 126/76 mm[Hg] 05/08/2020 03:20PM ESTABLISHED [id number] Height Weight BMI Blood Pressure 72 in [...]
--- OUTSIDE RECORDS SUMMARY | 2021-05-04 20:51 | CCD ---
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 Nasopharyngeal Normal Sars Cov 2 RNA not detected not detected [facility]: [address] [facility] 02/12/2021 CBC W/ Auto Diff Normal White Blood Count 9.2 10 4.0-10.0 10 [facility]: [address] [place] [address] Normal Red Blood Count 5.60 10 4.30-6.10 10 [facility]: [address] [place] [address] Low Hemoglobin 13.4 g/dL 13.5-17.5 g/dL [facility]: [address] [place] [address] Normal Hematocrit 44.7 % 42.0-52.0 % [facility]: [address] [place] [address] Low Mean Corpuscular Volume 79.8 fL 80.0 -96.0 fL [facility]: [address] [place] [address] Low Mean Corpuscular Hemoglobin 23.9 pg 27.0-33.0 pg [facility]: [address] [place] [address] Low Mean Corpuscular HGB Conc 30.0 g/dL 32.0-36.5 g/dL [facility]: [address] [place] [address] High Red Cell Distribution Width 15.3 % 1 1.5-14.5 % [facility]: [address] [place] [address] Normal Platelet Count, Automated 298 10 150 -450 10 [facility]: [address] [place] [address] Normal Neutrophils % 62.2 % 36.0-66.0 % [facility]: [address] [place] [address] Normal Lymph % 27.4 % 24.0-44.0 % [facility]: [address] [place] [address] High [place] % 8.8 % 2.0-8.0 % [facility]: [address] [facility] Normal Eos % 1.0 % 0.0-3.0 % [facility]: 0 [facility] Normal Baso % 0.3 % 0.0-1.0 % [facility]: 0 [facility] Normal Immature Granulocyte % 0.3 % 0-3.0 % [facility]: 0 [facility] Normal Nucleated Red Blood Cell % 0.0 % 0- 0 % [facility]: 0 [facility] Normal Neutrophils # 5.7 10 1.5-8.5 10 [facility]: 0 [facility] Normal Lymph # 2.5 10 1.5-5.0 10 [facility]: 0 [facility] Normal [place] # 0.8 10 0.0-0.8 10 [facility]: [address] [facility] Normal Eos # 0.1 10 0.0-0.5 10 [facility]: 0 [facility] Normal Baso # 0.0 10 0.0-0.2 10 [facility]: 0 [facility] 02/12/2021 CMP, Serum or Plasma Normal Glucose, Fastin g 94 mg/dL 70-100 mg/dL [facility]: 83 [address] [facility] Normal Blood Urea Nitrogen 13 mg/dL 7-18 mg /dL [facility]: 0 [facility] Normal Creatinine for GFR 1.11 mg/dL 0.70-1 .30 mg/dL [facility]: 0 [facility] Normal Glomerular Filtration Rate > 60.0 >5 6 [facility]: 0 [facility] Low Sodium Level 135 mEq/L 136-145 mEq/L [facility]: 0 [facility] Normal Potassium Serum 4.3 mEq/L 3.5-5.1 mE q/L [facility]: [address] [facility] Normal Chloride Level 101 mEq/L 98-107 mEq/ L [facility]: [address] [facility] Normal Carbon Dioxide Level 28 mEq/L 21-32 mEq/L [facility]: [address] [facility] Low Anion Gap 6 mEq/L 8-16 mEq/L [facility]: [address] [facility] Normal Calcium Level 8.8 mg/dL 8.5-10.1 mg/ dL [facility]: [address] [facility] Normal AST/SGOT 20 U/L 7-37 U/L [facility]: [address] [facility] Normal ALT/SGPT 18 U/L 12-78 U/L [facility]: [address] [facility] Normal Alkaline Phosphatase 114 U/L 45-117 U/L [facility]: [address] [facility] Normal Bilirubin,total 0.3 mg/dL 0.2-1.0 mg /dL [facility]: [address] [facility] Normal Total Protein 7.9 gm/dL 6.4-8.2 gm/d L [facility]: [address] [facility] Normal Albumin 3.6 gm/dL 3.2-5.2 gm/dL [facility]: [address] [facility] Normal Albumin/globulin Ratio 0.8 [facility]: [address] [facility] 02/12/2021 Testosterone, Total, Serum Normal Testoster one 536 NG/dL 241- 827 NG/dL [facility]: [address] [facility] 02/12/2021 PSA, Serum or Plasma Normal Prostat ic Specific Ag Monitor 0.30 NG/mL < 4.00 NG/mL [facility] Ce nter: [address] [facility] 02/12/2021 TSH, Serum or Plasma Normal Thyroid Stimulating Hormone 1.980 uIU/mL 0.358-3.740 uIU/mL [facility] nter: [address] [facility] 02/12/2021 HbA1C (Hemoglobin a1C), Blood Normal Hemogl obin a1C 5.7 % Final [facility]: [address] [facility] High Estimated Average Glucose 117 mg/dL 60-110 mg/dL Final 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 04/18/2021 Decreased Testosterone Level Blayne Mayfield MD: [address] [place] [phone], Ph. 04/08/2021 Decreased Testosterone Level Blayne Mayfield MD: [address] [place] [phone], Ph. 04/04/2021 Decreased Testosterone Level; Generalized Anxiety Disorder; Adult Pulmonary [place] Cell Histiocytosis Blayne Mayfield MD: [address] [place] [phone], Ph. 03/28/2021 Exposure to SARS-CoV-2 Blayne Mayfield MD: [address] [place] [phone], Ph. 03/25/2021 Decreased Testosterone Level Blayne Mayfield MD: [address] [place] [phone], Ph. 03/18/2021 Decreased Testosterone Level Blayne Mayfield MD: [address] [place] [phone], Ph. 03/10/2021 Decreased Testosterone Level; Depressive Disorder Blayne Mayfield MD: [address] [place] [phone], Ph. 02/26/2021 Dyspnea Blayne Mayfield MD: [address] [place] [phone], Ph. 02/05/2021 Decreased Testosterone Level; Dyspnea Blayne Mayfield MD: [address] [place] [phone], Ph. 01/22/2021 Decreased Testosterone Level Blayne Mayfield MD: [address] [place] [phone], Ph. 01/08/2021 Decreased Testosterone Level Blayne Mayfield MD: [address] [place] [phone], Ph. 12/25/2020 Decreased Testosterone Level Blayne Mayfield MD: [address] [place] [phone], Ph. 12/11/2020 Blayne Mayfield MD: [address] [place] [phone], Ph. 11/27/2020 Blayne Mayfield MD: [address] [place] [phone], Ph. 11/25/2020 Primary Erectile Dysfunction; Obstructive Sleep Apnea Syndrome Blayne Mayfield MD: [address] [place] [phone], Ph. 09/19/2020 Degeneration of Lumbar Intervertebral Disc; Primary Erectile Dysfunction Blayne Mayfield MD: [address] [place] [phone], Ph. 05/08/2020 Degeneration of Lumbar Intervertebral Disc; Primary Erectile Dysfunction Blayne Mayfield MD: [address] [place] [phone], Ph. Social History Tobacco Smoking Status Light [...] NURSE Height 72 in 11/25/2020 10:20AM ESTABLISHED [id number] Height Weight BMI Blood Pressure 72 in 195 lbs 16 oz 26.6 kg/m2 117/78 mm[Hg] 09/19/2020 01:40PM ESTABLISHED [id number] Height Weight BMI Blood Pressure 72 in 201 lbs 27.3 kg/m2 126/76 mm[Hg] 05/08/2020 03:20PM ESTABLISHED [id number] Height Weight BMI Blood Pressure 72 in [...]
--- OUTSIDE RECORDS SUMMARY | 2021-05-04 20:52 | CCD ---
Author Organization Unknown Address [address] [place] [address] Phone [phone] Care Team Providers Care Conductor Freight Name Role Phone ChaparroBlayne Unavailable Unavailable Allergies [...] Active Not avail able BD Regular Bevel [place] 18 gauge x 1" USE DIRECTED Active [...] Active Not available pantoprazole 40 mg tablet,delayed release Active Not available prednisone 20 mg tablet TAKE THREE TABLETS BY MOUTH EVERY DAY DAYS 1 3 THEN TAKE TWO TABLETS BY MOUTH EVERY DAY DAYS 4 7 THEN TAKE ONE TABLET BY MOUTH EVERY DAY D Completed 11/25/2020 pregabalin 150 mg capsule TAKE ONE CAPSULE BY MOUTH TWICE A DAY MAXIMUM DAILY DOSE 2 CAPS Active Not available pregabalin 200 mg capsule [...] Skin And/or Subcutaneous Tissue Active 05/12 History [place] [facility] Lung Active 06/12/2014 History Finding [...] - Finding Active 04/22/2018 Hi story 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 Latter-Day Present Active 06/07/2018 Histo ry Pain in [...] Result Interpretation Description Value Range Status Address 06/27/2020 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 01/22/2021 Decreased Testosterone Level Blayne Mayfield MD: [address] [place] [phone], Ph. 01/08/2021 Decreased Testosterone Level Blayne Mayfield MD: [address] [place] [phone], Ph. 12/25/2020 Decreased Testosterone Level Blayne Mayfield MD: [address] [place] [phone], Ph. 12/11/2020 Blayne Mayfield MD: [address] [place] [phone], Ph. 11/27/2020 Blayne Mayfield MD: [address] [place] [phone], Ph. 11/25/2020 Primary Erectile Dysfunction; Obstructive Sleep Apnea Syndrome Blayne Mayfield MD: [address] [place] [phone], Ph. 09/19/2020 Degeneration of Lumbar Intervertebral Disc; Primary Erectile Dysfunction Blayne Mayfield MD: [address] [place] [phone], Ph. 05/08/2020 Degeneration of Lumbar Intervertebral Disc; Primary Erectile Dysfunction Blayne Mayfield MD: [address] [place] [phone], Ph. Social History Tobacco Smoking Status Light [...] NURSE Height 72 in 11/25/2020 10:20AM ESTABLISHED [id number] Height Weight BMI Blood Pressure 72 in 195 lbs 16 oz 26.6 kg/m2 117/78 mm[Hg] 09/19/2020 01:40PM ESTABLISHED [id number] Height Weight BMI Blood Pressure 72 in 201 lbs 27.3 kg/m2 126/76 mm[Hg] 05/08/2020 03:20PM ESTABLISHED [id number] Height Weight BMI Blood Pressure 72 in [...]
--- OUTSIDE RECORDS SUMMARY | 2021-05-04 20:54 | CCD ---
Author Author [facility] Address Unknown Phone Unavailable Care Team Providers Care Music Department Chair Name Role Phone Jesus Mayfield MD Unavailable Unavailable Jesus Mayfield MD Unavailable Unavailable Jesus Mayfield MD Unavailable Unavailable Jesus Mayfield MD Unavailable Unavailable Jesus Mayfield MD Unavailable Unavailable Jesus Mayfield MD Unavailable Unavailable Jesus Mayfield MD Unavailable Unavailable Jesus Mayfield MD Unavailable Unavailable Jesus Mayfield MD Unavailable Unavailable Jesus Mayfield MD Unavailable Unavailable Jesus Mayfield MD Unavailable Unavailable Jesus Mayfield MD Unavailable Unavailable Jesus Mayfield MD Unavailable Unavailable Jesus Mayfield MD Unavailable Unavailable Jesus Mayfield MD Unavailable Unavailable Jesus Mayfield MD Unavailable Unavailable Jesus Mayfield MD Unavailable Unavailable Jesus Mayfield MD Unavailable Unavailable Jesus Mayfield MD Unavailable Unavailable Jesus Mayfield MD Unavailable Unavailable Jesus Mayfield MD Unavailable Unavailable Jesus Mayfield MD Unavailable Unavailable Jesus Mayfield MD Unavailable Unavailable Jesus Mayfield MD Unavailable Unavailable Jesus Mayfield MD Unavailable Unavailable Jesus Mayfield MD Unavailable Unavailable Jesus Mayfield MD Unavailable Unavailable Jesus Mayfield MD Unavailable Unavailable Jesus Mayfield MD Unavailable Unavailable Jesus Mayfield MD Unavailable Unavailable Jesus Mayfield MD Unavailable Unavailable Jesus Mayfield MD Unavailable Unavailable Jesus Mayfield MD Unavailable Unavailable Jesus Mayfield MD Unavailable Unavailable Jesus Mayfield MD Unavailable Unavailable Jesus Mayfield MD Unavailable Unavailable Jesus Mayfield MD Unavailable Unavailable Jesus Mayfield MD Unavailable Unavailable Jesus Mayfield MD Unavailable Unavailable Jesus Mayfield MD Unavailable Unavailable Jesus Mayfield MD Unavailable Unavailable Jesus Mayfield MD Unavailable Unavailable Jesus Mayfield MD Unavailable Unavailable Jesus Mayfield MD Unavailable Unavailable Jesus Mayfield MD Unavailable Unavailable Jesus Mayfield MD Unavailable Unavailable Jesus Mayfield MD Unavailable Unavailable Jesus Mayfield MD Unavailable Unavailable Jesus Mayfield MD Unavailable Unavailable Jesus Mayfield MD Unavailable Unavailable Jesus Mayfield MD Unavailable Unavailable Jesus Mayfield MD Unavailable Unavailable Jesus Mayfield MD Unavailable Unavailable Jesus Mayfield MD Unavailable Unavailable Jesus Mayfield MD Unavailable Unavailable Jesus Mayfield MD Unavailable Unavailable Jesus Mayfield MD Unavailable Unavailable Jesus Mayfield MD Unavailable Unavailable Jesus Mayfield MD Unavailable Unavailable Jesus Mayfield MD Unavailable Unavailable Jesus Mayfield MD Unavailable Unavailable Jesus Mayfield MD Unavailable Unavailable Jesus Mayfield MD Unavailable Unavailable Jesus Mayfield MD Unavailable Unavailable Jesus Mayfield MD Unavailable Unavailable Jesus Mayfield MD Unavailable Unavailable Jesus Mayfield MD Unavailable Unavailable Jesus Mayfield MD Unavailable Unavailable Jesus Mayfield MD Unavailable Unavailable Jesus Mayfield MD Unavailable Unavailable Jesus Mayfield MD Unavailable Unavailable Jesus Mayfield MD Unavailable Unavailable Jesus Mayfield MD Unavailable Unavailable Jesus Mayfield MD Unavailable Unavailable Jesus Mayfield MD Unavailable Unavailable Jesus Mayfield MD Unavailable Unavailable Jesus Mayfield MD Unavailable Unavailable Jesus Mayfield MD Unavailable Unavailable Jesus Mayfield MD Unavailable Unavailable Jesus Mayfield MD Unavailable Unavailable Jesus Mayfield MD Unavailable Unavailable Jesus Mayfield MD Unavailable Unavailable Jesus Mayfield MD Unavailable Unavailable Jesus Mayfield MD Unavailable Unavailable Jesus Mayfield MD Unavailable Unavailable Jesus Mayfield MD Unavailable Unavailable Jesus Mayfield MD Unavailable Unavailable Jesus Mayfield MD Unavailable Unavailable Jesus Mayfield MD Unavailable Unavailable Jesus Mayfield MD Unavailable Unavailable Jesus Mayfield MD Unavailable Unavailable Jesus Mayfield MD Unavailable Unavailable Jesus Mayfield MD Unavailable Unavailable Sonia Power MD Unavailable Unavailable Sonia Power MD Unavailable Unavailable Sonia Power MD Unavailable Unavailable Sonia Power MD Unavailable Unavailable Sonia Power MD Unavailable Unavailable Sonia Power MD Unavailable Unavailable Sonia Power MD Unavailable Unavailable Sonia Power MD Unavailable Unavailable Sonia Power MD Unavailable Unavailable Sonia Power MD Unavailable Unavailable Sonia Power MD Unavailable Unavailable Sonia Power MD Unavailable Unavailable Sonia Power MD Unavailable Unavailable Sonia Power MD Unavailable Unavailable Sonia Power MD Unavailable Unavailable Sonia Power MD Unavailable Unavailable Sonia Power MD Unavailable Unavailable Sonia Power MD Unavailable Unavailable Sonia Power MD Unavailable Unavailable Sonia Power MD Unavailable Unavailable Sonia Power MD Unavailable Unavailable Sonia Power MD Unavailable Unavailable Sonia Power MD Unavailable Unavailable Sonia Power MD Unavailable Unavailable Sonia Power MD Unavailable Unavailable Sonia Power MD Unavailable Unavailable Sonia Power MD Unavailable Unavailable Sonia Power MD Unavailable Unavailable Sonia Power MD Unavailable Unavailable Sonia Power MD Unavailable Unavailable Jesus Mayfield MD Unavailable Unavailable Jesus Mayfield MD Unavailable Unavailable Jesus Mayfield MD Unavailable Unavailable Jesus Mayfield MD Unavailable Unavailable Jesus Mayfield MD Unavailable Unavailable Jesus Mayfield MD Unavailable Unavailable Jesus Mayfield MD Unavailable Unavailable Jesus Mayfield MD Unavailable Unavailable Jesus Mayfield MD Unavailable Unavailable Jesus Mayfield MD Unavailable Unavailable Jesus Mayfield MD Unavailable Unavailable Jesus Mayfield MD Unavailable Unavailable Jesus Mayfield MD Unavailable Unavailable Jesus Mayfield MD Unavailable Unavailable Jesus Mayfield MD Unavailable Unavailable Jesus Mayfield MD Unavailable Unavailable Jesus Mayfield MD Unavailable Unavailable Jesus Mayfield MD Unavailable Unavailable Jesus Mayfield MD Unavailable Unavailable Jesus Mayfield MD Unavailable Unavailable Jesus Mayfield MD Unavailable Unavailable Jesus Mayfield MD Unavailable Unavailable Jesus Mayfield MD Unavailable Unavailable Jesus Mayfield MD Unavailable Unavailable Jesus Mayfield MD Unavailable Unavailable Jesus Mayfield MD Unavailable Unavailable Jesus Mayfield MD Unavailable Unavailable Jesus Mayfield MD Unavailable Unavailable Jesus Mayfield MD Unavailable Unavailable Jesus Mayfield MD Unavailable Unavailable Jesus Mayfield MD Unavailable Unavailable Jesus Mayfield MD Unavailable Unavailable Jesus Mayfield MD Unavailable Unavailable Jesus Mayfield MD Unavailable Unavailable Jesus Mayfield MD Unavailable Unavailable Jesus Mayfield MD Unavailable Unavailable Jesus Mayfield MD Unavailable Unavailable Jesus Mayfield MD Unavailable Unavailable Jesus Mayfield MD Unavailable Unavailable Jesus Mayfield MD Unavailable Unavailable Jesus Mayfield MD Unavailable Unavailable Jesus Mayfield MD Unavailable Unavailable Jesus Mayfield MD Unavailable Unavailable Jesus Mayfield MD Unavailable Unavailable Jesus Mayfield MD Unavailable Unavailable Jesus Mayfield MD Unavailable Unavailable Jesus Mayfield MD Unavailable Unavailable Jesus Mayfield MD Unavailable Unavailable Jesus Mayfield MD Unavailable Unavailable Jesus Mayfield MD Unavailable Unavailable Jesus Mayfield MD Unavailable Unavailable Jesus Mayfield MD Unavailable Unavailable Jesus Mayfield MD Unavailable Unavailable Jesus Mayfield MD Unavailable Unavailable Jesus Mayfield MD Unavailable Unavailable Jesus Mayfield MD Unavailable Unavailable Jesus Mayfield MD Unavailable Unavailable Jesus Mayfield MD Unavailable Unavailable Jesus Mayfield MD Unavailable Unavailable Jesus Mayfield MD Unavailable Unavailable Jesus Mayfield MD Unavailable Unavailable Jesus Mayfield MD Unavailable Unavailable Jesus Mayfield MD Unavailable Unavailable Jesus Mayfield MD Unavailable Unavailable Jesus Mayfield MD Unavailable Unavailable Jesus Mayfield MD Unavailable Unavailable Jesus Mayfield MD Unavailable Unavailable Jesus Mayfield MD Unavailable Unavailable Jesus Mayfield MD Unavailable Unavailable Jesus Mayfield MD Unavailable Unavailable Jesus Mayfield MD Unavailable Unavailable Jesus Mayfield MD Unavailable Unavailable Jesus Mayfield MD Unavailable Unavailable Jesus Mayfield MD Unavailable Unavailable Jesus Mayfield MD Unavailable Unavailable Jesus Mayfield MD Unavailable Unavailable Jesus Mayfield MD Unavailable Unavailable Jesus Mayfield MD Unavailable Unavailable Jesus Mayfield MD Unavailable Unavailable Jesus Mayfield MD Unavailable Unavailable Jesus Mayfield MD Unavailable Unavailable Jesus Mayfield MD Unavailable Unavailable Jesus Mayfield MD Unavailable Unavailable Jesus Mayfield MD Unavailable Unavailable Jesus Mayfield MD Unavailable Unavailable Jesus Mayfield MD Unavailable Unavailable Jesus Mayfield MD Unavailable Unavailable Jesus Mayfield MD Unavailable Unavailable Jesus Mayfield MD Unavailable Unavailable Jesus Mayfield MD Unavailable Unavailable Jesus Mayfield MD Unavailable Unavailable Jesus Mayfield MD Unavailable Unavailable Jesus Mayfield MD Unavailable Unavailable MCELHERAN, HILARIO PA Unavailable Unavailable MCELHERAN, HILARIO PA Unavailable Unavailable MCELHERAN, HILARIO PA Unavailable Unavailable MCELHERAN, HILARIO PA Unavailable Unavailable MCELHERAN, HILARIO PA Unavailable Unavailable MCELHERAN, HILARIO PA Unavailable Unavailable MCELHERAN, HILARIO PA Unavailable Unavailable MCELHERAN, HILARIO PA Unavailable Unavailable MCELHERAN, HILARIO PA Unavailable Unavailable MCELHERAN, HILARIO PA Unavailable Unavailable MCELHERAN, HILARIO PA Unavailable Unavailable MCELHERAN, HILARIO PA Unavailable Unavailable MCELHERAN, HILARIO PA Unavailable Unavailable MCELHERAN, HILARIO PA Unavailable Unavailable MCELHERAN, HILARIO PA Unavailable Unavailable MCELHERAN, HILARIO PA Unavailable Unavailable MCELHERAN, HILARIO PA Unavailable Unavailable MCELHERAN, HILARIO PA Unavailable Unavailable MCELHERAN, HILARIO PA Unavailable Unavailable MCELHERAN, HILARIO PA Unavailable Unavailable MCELHERAN, HILARIO PA Unavailable Unavailable MCELHERAN, HILARIO PA Unavailable Unavailable MCELHERAN, HILARIO PA Unavailable Unavailable MCELHERAN, HILARIO PA Unavailable Unavailable MCELHERAN, HILARIO PA Unavailable Unavailable MCELHERAN, HILARIO PA Unavailable Unavailable MCELHERAN, HILARIO PA Unavailable Unavailable MCELHERAN, HILARIO PA Unavailable Unavailable MCELHERAN, HILARIO PA Unavailable Unavailable Nicola Willard MD Unavailable Unavailable Nicola Willard MD Unavailable Unavailable Nicola Willard MD Unavailable Unavailable Jesus Mayfield MD Unavailable Unavailable Jesus Mayfield MD Unavailable Unavailable Jesus Mayfield MD Unavailable Unavailable Jesus Mayfield MD Unavailable Unavailable Jesus Mayfield MD Unavailable Unavailable Jesus Mayfield MD Unavailable Unavailable Jesus Mayfield MD Unavailable Unavailable Jesus Mayfield MD Unavailable Unavailable Jesus Mayfield MD Unavailable Unavailable Jesus Mayfield MD Unavailable Unavailable Jesus Mayfield MD Unavailable Unavailable Jesus Mayfield MD Unavailable Unavailable Jesus Mayfield MD Unavailable Unavailable Jesus Mayfield MD Unavailable Unavailable Jesus Mayfield MD Unavailable Unavailable Jesus Mayfield MD Unavailable Unavailable Jesus Mayfield MD Unavailable Unavailable Jesus Mayfield MD Unavailable Unavailable Jesus Mayfield MD Unavailable Unavailable Jesus Mayfield MD Unavailable Unavailable Jesus Mayfield MD Unavailable Unavailable Jesus Mayfield MD Unavailable Unavailable Jesus Mayfield MD Unavailable Unavailable Jesus Mayfield MD Unavailable Unavailable Jesus Mayfield MD Unavailable Unavailable Jesus Mayfield MD Unavailable Unavailable Jesus Mayfield MD Unavailable Unavailable Jesus Mayfield MD Unavailable Unavailable eJsus Mayfield MD Unavailable Unavailable Jesus Mayfield MD Unavailable Unavailable Jesus Mayfield MD Unavailable Unavailable Jesus Mayfield MD Unavailable Unavailable Jesus Mayfield MD Unavailable Unavailable Jesus Mayfield MD Unavailable Unavailable Jesus Mayfield MD Unavailable Unavailable Jesus Mayfield MD Unavailable Unavailable Jesus Mayfield MD Unavailable Unavailable Jesus Mayfield MD Unavailable Unavailable Jesus Mayfield MD Unavailable Unavailable Jesus Mayfield MD Unavailable Unavailable Jesus Mayfield MD Unavailable Unavailable Jesus Mayfield MD Unavailable Unavailable Jesus Mayfield MD Unavailable Unavailable Jesus Mayfield MD Unavailable Unavailable Jesus Mayfield MD Unavailable Unavailable Jesus Mayfield MD Unavailable Unavailable Jesus Mayfield MD Unavailable Unavailable Jesus Mayfield MD Unavailable Unavailable Jesus Mayfield MD Unavailable Unavailable Jesus Mayfield MD Unavailable Unavailable Jesus Mayfield MD Unavailable Unavailable Jesus Mayfield MD Unavailable Unavailable Jesus Mayfield MD Unavailable Unavailable Jesus Mayfield MD Unavailable Unavailable Jesus Mayfield MD Unavailable Unavailable Jesus Mayfield MD Unavailable Unavailable Jesus Mayfield MD Unavailable Unavailable Jesus Mayfield MD Unavailable Unavailable Jesus Mayfield MD Unavailable Unavailable Jesus Mayfield MD Unavailable Unavailable Jesus Mayfield MD Unavailable Unavailable Jesus Mayfield MD Unavailable Unavailable Jesus Mayfield MD Unavailable Unavailable Jesus Mayfield MD Unavailable Unavailable Jesus Mayfeild MD Unavailable Unavailable Jesus Mayfield MD Unavailable Unavailable Jesus Mayfield MD Unavailable Unavailable Jesus Mayfield MD Unavailable Unavailable Jesus Mayfield MD Unavailable Unavailable Jesus Mayfield MD Unavailable Unavailable Jesus Mayfield MD Unavailable Unavailable Jesus Mayfield MD Unavailable Unavailable Jesus Mayfield MD Unavailable Unavailable Jesus Mayfield MD Unavailable Unavailable Jesus Mayfield MD Unavailable Unavailable Jesus Mayfield MD Unavailable Unavailable Jesus Mayfield MD Unavailable Unavailable Jesus Mayfield MD Unavailable Unavailable Jesus Mayfield MD Unavailable Unavailable Jesus Mayfield MD Unavailable Unavailable Jesus Mayfield MD Unavailable Unavailable Jesus Mayfield MD Unavailable Unavailable Jesus Mayfield MD Unavailable Unavailable Jesus Mayfield MD Unavailable Unavailable Jesus Mayfield MD Unavailable Unavailable Jesus Mayfield MD Unavailable Unavailable Jesus Mayfield MD Unavailable Unavailable Jesus Mayfield MD Unavailable Unavailable Jesus Mayfield MD Unavailable Unavailable Jesus Mayfield MD Unavailable Unavailable Jesus Mayfield MD Unavailable Unavailable Jesus Mayfield MD Unavailable Unavailable Jesus Mayfield MD Unavailable Unavailable Re-disclosure Warning The records that you are about to access may contain information from federally-assisted alcohol or drug abuse programs. If such information is present, then the following federally mandated warning applies: This information has been disclosed to you from records protected by federal confidentiality rules (42 CFR part 2). The federal rules prohibit you from making any further disclosure of this information unless further disclosure is expressly permitted by the written consent of the person to whom it pertains or as otherwise permitted by 42 CFR part 2. A general authorization for the release of medical or other information is NOT sufficient for this purpose. The Federal rules restrict any use of the information to criminally investigate or prosecute any alcohol or drug abuse patient.The records that you are about to access may contain highly sensitive health information, the redisclosure of which is protected by Article 27-F of the [facility] Public Health law. If you continue you may have access to information: Regarding HIV / AIDS; Provided by facilities licensed or operated by the [facility] Office of Mental Health; or Provided by the [facility] Office for People With Developmental Disabilities. If such information is present, then the following [facility] mandated warning applies: This information has been disclosed to you from confidential records which are protected by state law. State law prohibits you from making any further disclosure of this information without the specific written consent of the person to whom it pertains, or as otherwise permitted by law. Any unauthorized further disclosure in violation of state law may result in a fine or alf sentence or both. A general authorization for the release of medical or other information is NOT sufficient authorization for further disc losure. Allergies and Adverse Reactions Type Description Substance Reaction Status Data Source(s ) Propensity to adverse reactions NO KNOWN ALLERGIES NO KNOWN ALLERGIES [facility] Allergy to substance Allergy to substance Allergy to substance ALEX ([facility]) Allergy to substance Allergy to substance Allergy to substance ALEX ([facility]) Allergy to substance Allergy to substance Allergy to substance ALEX ([facility]) Allergy to substance Allergy to substance Allergy to substance ALEX ([facility]) Allergy to substance Allergy to substance Allergy to substance ALEX ([facility]) Allergy to substance Allergy to substance Allergy to substance ALEX ([facility]) Allergy to substance Allergy to substance Allergy to substance ALEX ([facility]) Allergy to substance Allergy to substance Allergy to substance ALEX ([facility]) Family History Family Member Name Family Member Gender Family Member Status Date o f Status Description Data Source(s) Unknown Unknown Problem [facility] ([facility]) Encounters Encounter Providers Location Date Indications Data Source(s ) Outpatient 05/30/2021 12:00:[address] [facility] Outpatient Attender: Nicola ARZATEeferrer: Blayne Mayfield MD 05/30/2021 12:00:[address] [facility] Blayne Mayfield MD: [address] [place] [address], Ph. Attender: Blayne Mayfield MD [facility] Medical 05/02/2021 12:00:00 AM EDT ALEX ([facility]) Blayne Mayfield MD: [address] [place] [address], Ph. Attender: Blayne Mayfield MD [facility] Medical 05/01/2021 12:00:00 AM EDT [facility]LEX ([facility]) Blayne Mayfield MD: [address] [place] [address], Ph. Attender: Blayne Mayfield MD [facility] Medical 05/01/2021 12:00:00 AM EDT [facility]LEX ([facility]) Blayne Mayfield MD: [address] [place] [address], Ph. Attender: Blayne Mayfield MD [facility] Medical 04/25/2021 12:00:00 AM EDT [facility]LEX ([facility]) Blayne Mayfield MD: [address] [place] [address], Ph. Attender: Blayne Mayfield MD [facility] Medical 04/25/2021 12:00:00 AM EDT [facility]LEX ([facility]) Blayne Mayfield MD: [address] [place] [address], Ph. Attender: Blayne Mayfield MD [facility] Medical 04/25/2021 12:00:00 AM EDT [facility]LEX ([facility]) Blayne Mayfield MD: [address] [place] [address], Ph. Attender: Blayne Mayfield MD [facility] Medical 04/18/2021 12:00:00 AM EDT ALEX ([facility]) Blayne Mayfield MD: [address] [place] [address], Ph. Attender: Blayne Mayfield MD [facility] Medical 04/18/2021 12:00:00 AM EDT ALEX ([facility]) Blayne Mayfield MD: [address] [place] [address], Ph. Attender: Blayne Mayfield MD [facility] Medical 04/18/2021 12:00:00 AM EDT ALEX ([facility]) Blayne Mayfield MD: [address] [place] [address], Ph. Attender: Blayne Mayfield MD [facility] Medical 04/18/2021 12:00:00 AM EDT [facility]LEX ([facility]) Blayne Mayfield MD: [address] [place] [address], Ph. Attender: Blayne Mayfield MD [facility] Medical 04/08/2021 12:00:00 AM EDT [facility]LEX ([facility]) Blayne Mayfield MD: [address] [place] [address], Ph. Attender: Blayne Mayfield MD [facility] Medical 04/08/2021 12:00:00 AM EDT ALEX ([facility]) Blayne Mayfield MD: [address] [place] [address], Ph. Attender: Blayne Mayfield MD [facility] Medical 04/08/2021 12:00:00 AM EDT ALEX ([facility]) Blayne Mayfield MD: [address] [place] [address], Ph. Attender: Blayne Mayfield MD [facility] Medical 04/08/2021 12:00:00 AM EDT ALEX ([facility]) Blayne Mayfield MD: [address] [place] [address], Ph. Attender: Blayne Mayfield MD [facility] Medical 04/08/2021 12:00:00 AM EDT ALEX ([facility]) Blayne Mayfield MD: [address] [place] [address], Ph. Attender: Blayne Mayfield MD [facility] Medical 04/08/2021 12:00:00 AM EDT [facility]LEX ([facility]) Blayne Mayfield MD: [address] [place] [address], Ph. Attender: Blayne Mayfield MD [facility] Medical 04/04/2021 12:00:00 AM EDT [facility]LEX ([facility]) Blayne Mayfield MD: [address] [place] [address], Ph. Attender: Blayne Mayfield MD [facility] Medical 04/04/2021 12:00:00 AM EDT [facility]LEX ([facility]) Blayne Mayfield MD: [address] [place] [address], Ph. Attender: Blayne Mayfield MD [facility] Medical 04/04/2021 12:00:00 AM EDT [facility]LEX ([facility]) Blayne Mayfield MD: [address] [place] [address], Ph. Attender: Blayne Mayfield MD [facility] Medical 04/04/2021 12:00:00 AM EDT [facility]LEX ([facility]) Blayne Mayfield MD: [address] [place] [address], Ph. Attender: Blayne Mayfield MD [facility] Medical 04/04/2021 12:00:00 AM EDT [facility]LEX ([facility]) Blayne Mayfield MD: [address] [place] [address], Ph. Attender: Blayne Mayfield MD [facility] Medical 04/04/2021 12:00:00 AM EDT [facility]LEX ([facility]) Blayne Mayfield MD: [address] [place] [address], Ph. Attender: Blayne Mayfield MD [facility] Medical 04/04/2021 12:00:00 AM EDT [facility]LEX ([facility]) Outpatient Attender: Sonia Han/[place] [facility] 04/02/2021 01:23:00 AM EDT [facility] ([facility]) Outpatient Attender: Sonia Han/[place] 04/01/2021 01:23:00 AM EDT [facility] ([facility]) Outpatient Attender: Sonia Han/[place] [facility] 03/31/2021 01:23:00 AM EDT [facility] ([facility]) Blayne Mayfield MD: [address] [place] [address], Ph. Attender: Blayne Mayfield MD [facility] Medical 03/28/2021 12:00:00 AM EDT ALEX ([facility]) Blayne Mayfield MD: [address] [place] [address], Ph. Attender: Blayne Mayfield MD [facility] Medical 03/28/2021 12:00:00 AM EDT [facility]LEX ([facility]) Blayne Mayfield MD: [address] [place] [address], Ph. Attender: Blayne Mayfield MD [facility] Medical 03/28/2021 12:00:00 AM EDT [facility]LEX ([facility]) Blayne Mayfield MD: [address] [place] [address], Ph. Attender: Blayne Mayfield MD [facility] Medical 03/28/2021 12:00:00 AM EDT [facility]LEX ([facility]) Blayne Mayfield MD: [address] [place] [address], Ph. Attender: Blayne Mayfield MD [facility] Medical 03/28/2021 12:00:00 AM EDT ALEX ([facility]) Blayne Mayfield MD: [address] [place] [address], Ph. Attender: Blayne Mayfield MD [facility] Medical 03/28/2021 12:00:00 AM EDT ALEX ([facility]) Blayne Mayfield MD: [address] [place] [address], Ph. Attender: Blayne Mayfield MD [facility] Medical 03/28/2021 12:00:00 AM EDT ALEX ([facility]) Blayne Mayfield MD: [address] [place] [address]2 504, Ph. Attender: Blayne Mayfield MD [facility] Medical 03/25/2021 12:00:00 AM EDT ALEX ([facility]) Blayne Mayfield MD: [address] [place] [address]0 504, Ph. Attender: Blayne Mayfield MD [facility] Medical 03/25/2021 12:00:00 AM EDT ALEX ([facility]) Blayne Mayfield MD: [address] [place] [address]4 504, Ph. Attender: Blayne Mayfield MD [facility] Medical 03/25/2021 12:00:00 AM EDT ALEX ([facility]) Blayne Mayfield MD: [address] [place] [address]5 504, Ph. Attender: Blayne Mayfield MD [facility] Medical 03/25/2021 12:00:00 AM EDT ALEX ([facility]) Blayne Mayfield MD: [address] [place] [address]1 504, Ph. Attender: Blayne Mayfield MD [facility] Medical 03/25/2021 12:00:00 AM EDT ALEX ([facility]) Blayne Mayfield MD: [address] [place] [address]8 504, Ph. Attender: Blayne Mayfield MD [facility] Medical 03/25/2021 12:00:00 AM EDT ALEX ([facility]) Blayne Mayfield MD: [address] [place] [address]7 504, Ph. Attender: Blayne Mayfield MD [facility] Medical 03/25/2021 12:00:00 AM EDT ALEX ([facility]) Blayne Mayfield MD: [address] [place] [address]2 504, Ph. Attender: Blayne Mayfield MD [facility] Medical 03/25/2021 12:00:00 AM EDT ALEX ([facility]) Blayne Mayfield MD: [address] [place] [address]5 504, Ph. Attender: Blayne Mayfield MD [facility] Medical 03/18/2021 12:00:00 AM EDT ALEX ([facility]) Blayne Mayfield MD: [address] [place] [address]7 504, Ph. Attender: Blayne Mayfield MD [facility] Medical 03/18/2021 12:00:00 AM EDT ALEX ([facility]) Blayne Mayfield MD: [address] [place] [address]2 504, Ph. Attender: Blayne Mayfield MD [facility] Medical 03/18/2021 12:00:00 AM EDT ALEX ([facility]) Blayne Mayfield MD: [address] [place] [address]2 504, Ph. Attender: Blayne Mayfield MD [facility] Medical 03/18/2021 12:00:00 AM EDT ALEX ([facility]) Blayne Mayfield MD: [address] [place] [address]0 504, Ph. Attender: Blayne Mayfield MD [facility] Medical 03/18/2021 12:00:00 AM EDT ALEX ([facility]) Blayne Mayfield MD: [address] [place] [address]6 504, Ph. Attender: Blayne Mayfield MD [facility] Medical 03/18/2021 12:00:00 AM EDT ALEX ([facility]) Blayne Mayfield MD: [address] [place] [address]5 504, Ph. Attender: Blayne Mayfield MD [facility] Medical 03/18/2021 12:00:00 AM EDT ALEX ([facility]) Blayne Mayfield MD: [address] [place] [address]0 504, Ph. Attender: Blayne Mayfield MD [facility] Medical 03/18/2021 12:00:00 AM EDT ALEX ([facility]) Blayne Mayfield MD: [address] [place] [address]-2 504, Ph. Attender: Blayne Mayfield MD [facility] Medical 03/18/2021 12:00:00 AM EDT ALEX ([facility]) Blayne Mayfield MD: [address] [place] [address]-1 504, Ph. Attender: Blayne Mayfield MD [facility] Medical 03/10/2021 12:00:00 AM EDT ALEX ([facility]) Blayne Mayfield MD: [address] [place] [address]3 504, Ph. Attender: Blayne Mayfield MD [facility] Medical 03/10/2021 12:00:00 AM EDT ALEX ([facility]) Blayne Mayfield MD: [address] [place] [address]0 504, Ph. Attender: Blayne Mayfield MD [facility] Medical 03/10/2021 12:00:00 AM EDT ALEX ([facility]) Blayne Mayfield MD: [address] [place] [address]9 504, Ph. Attender: Blayne Mayfield MD [facility] Medical 03/10/2021 12:00:00 AM EDT ALEX ([facility]) Blayne Mayfield MD: [address] [place] [address]0 504, Ph. Attender: Blayne Mayfield MD [facility] Medical 03/10/2021 12:00:00 AM EDT ALEX ([facility]) Blayne Mayfield MD: [address] [place] [address]2 504, Ph. Attender: Blayne Mayfield MD [facility] Medical 03/10/2021 12:00:00 AM EDT ALEX ([facility]) Blayne Mayfield MD: [address] [place] [address]2 504, Ph. Attender: Blayne Mayfield MD [facility] Medical 03/10/2021 12:00:00 AM EDT ALEX ([facility]) Blayne Mayfield MD: [address] [place] [address]6 504, Ph. Attender: Blayne Mayfield MD [facility] Medical 03/10/2021 12:00:00 AM EDT ALEX ([facility]) Blayne Mayfield MD: [address] [place] [address]0 504, Ph. Attender: Blayne Mayfield MD [facility] Medical 03/10/2021 12:00:00 AM EDT ALEX ([facility]) Blayne Mayfield MD: [address] [place] [address]1 504, Ph. Attender: Blayne Mayfield MD [facility] Medical 02/26/2021 12:00:00 AM EDT ALEX ([facility]) Blayne Mayfield MD: [address] [place] [address]0 504, Ph. Attender: Blayne Mayfield MD [facility] Medical 02/26/2021 12:00:00 AM EDT ALEX ([facility]) Blayne Mayfield MD: [address] [place] [address]8 504, Ph. Attender: Blayne Mayfield MD [facility] Medical 02/26/2021 12:00:00 AM EDT ALEX ([facility]) Blayne Mayfield MD: [address] [place] [address]0 504, Ph. Attender: Blayne Mayfield MD [facility] Medical 02/26/2021 12:00:00 AM EDT ALEX ([facility]) Blayne Mayfield MD: [address] [place] [address]6 504, Ph. Attender: Blayne Mayfield MD [facility] Medical 02/26/2021 12:00:00 AM EDT ALEX ([facility]) Blayne Mayfield MD: [address] [place] [address]3 504, Ph. Attender: Blayne Mayfield MD [facility] Medical 02/26/2021 12:00:00 AM EDT ALEX ([facility]) Blayne Mayfield MD: [address] [place] [address]7 504, Ph. Attender: Blayne Mayfield MD [facility] Medical 02/26/2021 12:00:00 AM EDT ALEX ([facility]) Blayne Mayfield MD: [address] [place] [address]-1 504, Ph. Attender: Blayne Mayfield MD [facility] Medical 02/26/2021 12:00:00 AM EDT ALEX ([facility]) Blayne Mayfield MD: [address] [place] [address]8 504, Ph. Attender: Blayne Mayfield MD [facility] Medical 02/26/2021 12:00:00 AM EDT ALEX ([facility]) Blayne Mayfield MD: [address] [place] [address]5 504, Ph. Attender: Blayne Mayfield MD [facility] Medical 02/26/2021 12:00:00 AM EDT ALEX ([facility]) Blayne Mayfiedl MD: [address] [place] [address]3 504, Ph. Attender: Blayne Mayfield MD [facility] Medical 02/05/2021 12:00:00 AM EDT ALEX ([facility]) Blayne Mayfield MD: [address] [place] [address]3 504, Ph. Attender: Blayne Mayfield MD [facility] Medical 02/05/2021 12:00:00 AM EDT ALEX ([facility]) Blayne Mayfield MD: [address] [place] [address]6 504, Ph. Attender: Blayne Mayfield MD [facility] Medical 02/05/2021 12:00:00 AM EDT ALEX ([facility]) Blayne Mayfield MD: [address] [place] [address]-3 504, Ph. Attender: Blayne Mayfield MD [facility] Medical 02/05/2021 12:00:00 AM EDT ALEX ([facility]) Blayne Mayfield MD: [address] [place] [address]9 504, Ph. Attender: Blayne Mayfield MD [facility] Medical 02/05/2021 12:00:00 AM EDT ALEX ([facility]) Blayne Mayfield MD: [address] [place] [address]8 504, Ph. Attender: Blayne Mayfield MD [facility] Medical 02/05/2021 12:00:00 AM EDT ALEX ([facility]) Blayne Mayfield MD: [address] [place] [address]4 504, Ph. Attender: Blayne Mayfield MD [facility] Medical 02/05/2021 12:00:00 AM EDT ALEX ([facility]) Blayne Mayfield MD: [address] [place] [address]9 504, Ph. Attender: Blayne Mayfield MD [facility] Medical 02/05/2021 12:00:00 AM EDT ALEX ([facility]) Blayne Mayfield MD: [address] [place] [address]6 504, Ph. Attender: Blayne Mayfield MD [facility] Medical 02/05/2021 12:00:00 AM EDT ALEX ([facility]) Blayne Mayfield MD: [address] [place] [address]-4 504, Ph. Attender: Blayne Mayfield MD [facility] Medical 02/05/2021 12:00:00 AM EDT ALEX ([facility]) Blayne Mayfield MD: [address] [place] [address]7 504, Ph. Attender: Blayne Mayfield MD [facility] Medical 02/05/2021 12:00:00 AM EDT ALEX ([facility]) Blayne Mayfield MD: [address] [place] [address]6 504, Ph. Attender: Blayne Mayfield MD [facility] Medical 01/22/2021 12:00:00 AM EDT ALEX ([facility]) Blayne Mayfield MD: [address] [place] [address]-4 504, Ph. Attender: Blayne Mayfield MD [facility] Medical 01/22/2021 12:00:00 AM EDT ALEX ([facility]) Blayne Mayfield MD: [address] [place] [address]-7 504, Ph. Attender: Blayne Mayfield MD [facility] Medical 01/22/2021 12:00:00 AM EDT ALEX ([facility]) Blayne Mayfield MD: [address] [place] [address]-5 504, Ph. Attender: Blayne Mayfield MD [facility] Medical 01/22/2021 12:00:00 AM EDT ALEX ([facility]) Blayne Mayfield MD: [address] [place] [address]8 504, Ph. Attender: Blayne Mayfield MD [facility] Medical 01/22/2021 12:00:00 AM EDT ALEX ([facility]) Blayne Mayfield MD: [address] [place] [address]5 504, Ph. Attender: Blayne Mayfield MD [facility] Medical 01/22/2021 12:00:00 AM EDT ALEX ([facility]) Blayne Mayfield MD: [address] [place] [address]3 504, Ph. Attender: Blayne Mayfield MD [facility] Medical 01/22/2021 12:00:00 AM EDT ALEX ([facility]) Blayne Mayfield MD: [address] [place] [address]9 504, Ph. Attender: Blayne Mayfield MD [facility] Medical 01/22/2021 12:00:00 AM EDT ALEX ([facility]) Blayne Mayfield MD: [address] [place] [address]5 504, Ph. Attender: Blayne Mayfield MD [facility] Medical 01/22/2021 12:00:00 AM EDT ALEX ([facility]) Blayne Mayfield MD: [address] [place] [address]6 504, Ph. Attender: Blayne Mayfield MD [facility] Medical 01/22/2021 12:00:00 AM EDT ALEX ([facility]) Blayne Mayfield MD: [address] [place] [address]3 504, Ph. Attender: Blayne Mayfield MD [facility] Medical 01/22/2021 12:00:00 AM EDT ALEX ([facility]) Blayne Mayfield MD: [address] [place] [address]-0 504, Ph. Attender: Blayne Mayfield MD [facility] Medical 01/22/2021 12:00:00 AM EDT ALEX ([facility]) Blayne Mayfield MD: [address] [place] [address]-2 504, Ph. Attender: Blayne Mayfield MD [facility] Medical 01/08/2021 12:00:00 AM EDT ALEX ([facility]) Blayne Mayfield MD: [address] [place] [address]-8 504, Ph. Attender: Blayne Mayfield MD [facility] Medical 01/08/2021 12:00:00 AM EDT ALEX ([facility]) Blayne Mayfield MD: [address] [place] [address]-1 504, Ph. Attender: Blayne Mayfield MD [facility] Medical 01/08/2021 12:00:00 AM EDT ALEX ([facility]) Blayne Mayfield MD: [address] [place] [address]-1 504, Ph. Attender: Blayne Mayfield MD [facility] Medical 01/08/2021 12:00:00 AM EDT ALEX ([facility]) Blayne Mayfield MD: [address] [place] [address]4 504, Ph. Attender: Blayne Mayfield MD [facility] Medical 01/08/2021 12:00:00 AM EDT ALEX ([facility]) Blayne Mayfield MD: [address] [place] [address]-4 504, Ph. Attender: Blayne Mayfield MD [facility] Medical 01/08/2021 12:00:00 AM EDT ALEX ([facility]) Blayne Mayfield MD: [address] [place] [address]3 504, Ph. Attender: Blayne Mayfield MD [facility] Medical 01/08/2021 12:00:00 AM EDT ALEX ([facility]) Blayne Mayfield MD: [address] [place] [address]9 504, Ph. Attender: Blayne Mayfield MD [facility] Medical 01/08/2021 12:00:00 AM EDT ALEX ([facility]) Blayne Mayfield MD: [address] [place] [address]-2 504, Ph. Attender: Blayne Mayfield MD [facility] Medical 01/08/2021 12:00:00 AM EDT ALEX ([facility]) Blayne Mayfield MD: [address] [place] [address]9 504, Ph. Attender: Blayne Mayfield MD [facility] Medical 01/08/2021 12:00:00 AM EDT ALEX ([facility]) Blayne Mayfield MD: [address] [place] [address]8 504, Ph. Attender: Blayne Mayfield MD [facility] Medical 01/08/2021 12:00:00 AM EDT ALEX ([facility]) Blayne Mayfield MD: [address] [place] [address]4 504, Ph. Attender: Blayne Mayfield MD [facility] Medical 01/08/2021 12:00:00 AM EDT ALEX ([facility]) Blayne Mayfield MD: [address] [place] [address]6 504, Ph. Attender: Blayne Mayfield MD [facility] Medical 01/08/2021 12:00:00 AM EDT ALEX ([facility]) Blayne Mayfield MD: [address] [place] [address]-4 504, Ph. Attender: Blayne Mayfield MD [facility] Medical 01/08/2021 12:00:00 AM EDT ALEX ([facility]) Blayne Mayfield MD: [address] [place] [address]-2 504, Ph. Attender: Blayne Mayfield MD [facility] Medical 12/25/2020 12:00:00 AM EDT ALEX ([facility]) Blayne Mayfield MD: [address] [place] [address]-9 504, Ph. Attender: Blayen Mayfield MD [facility] Medical 12/25/2020 12:00:00 AM EDT ALEX ([facility]) Blayne Mayfield MD: [address] [place] [address]-2 504, Ph. Attender: Blayne Mayfield MD [facility] Medical 12/25/2020 12:00:00 AM EDT ALEX ([facility]) Blayne Mayfield MD: [address] [place] [address]-4 504, Ph. Attender: Blayne Mayfield MD [facility] Medical 12/25/2020 12:00:00 AM EDT ALEX ([facility]) Blayne Mayfield MD: [address] [place] [address]-0 504, Ph. Attender: Blayne Mayfield MD [facility] Medical 12/25/2020 12:00:00 AM EDT ALEX ([facility]) Blayne Mayfield MD: [address] [place] [address]7 504, Ph. Attender: Blayne Mayfield MD [facility] Medical 12/25/2020 12:00:00 AM EDT ALEX ([facility]) Blayne Mayfield MD: [address] [place] [address]-3 504, Ph. Attender: Blayne Mayfield MD [facility] Medical 12/25/2020 12:00:00 AM EDT ALEX ([facility]) Blayne Mayfield MD: [address] [place] [address]-9 504, Ph. Attender: Blayne Mayfield MD [facility] Medical 12/25/2020 12:00:00 AM EDT ALEX ([facility]) Blayne Mayfield MD: [address] [place] [address]-9 504, Ph. Attender: Blayne Mayfield MD [facility] Medical 12/25/2020 12:00:00 AM EDT ALEX ([facility]) Blayne Mayfield MD: [address] [place] [address]0 504, Ph. Attender: Blayne Mayfield MD [facility] Medical 12/25/2020 12:00:00 AM EDT ALEX ([facility]) Blayne Mayfield MD: [address] [place] [address]3 504, Ph. Attender: Blayne Mayfield MD [facility] Medical 12/25/2020 12:00:00 AM EDT ALEX ([facility]) Blayne Mayfield MD: [address] [place] [address]-4 504, Ph. Attender: Blayne Mayfield MD [facility] Medical 12/25/2020 12:00:00 AM EDT ALEX ([facility]) Blayne Mayfield MD: [address] [place] [address]-9 504, Ph. Attender: Blayne Mayfield MD [facility] Medical 12/25/2020 12:00:00 AM EDT ALEX ([facility]) Blayne Mayfield MD: [address] [place] [address]-0 504, Ph. Attender: Blayne Mayfield MD [facility] Medical 12/25/2020 12:00:00 AM EDT ALEX ([facility]) Blayne Mayfield MD: [address] [place] [address]-5 504, Ph. Attender: Blayne Mayfield MD [facility] Medical 12/11/2020 12:00:00 AM EDT ALEX ([facility]) Blayne Mayfield MD: [address] [place] [address]-5 504, Ph. Attender: Blayne Mayfield MD [facility] Medical 12/11/2020 12:00:00 AM EDT ALEX ([facility]) Blayne Mayfield MD: [address] [place] [address]-5 504, Ph. Attender: Blayne Mayfield MD [facility] Medical 12/11/2020 12:00:00 AM EDT ALEX ([facility]) Blayne Mayfield MD: [address] [place] [address]-2 504, Ph. Attender: Blayne Mayfield MD [facility] Medical 12/11/2020 12:00:00 AM EDT ALEX ([facility]) Blayne Mayfield MD: [address] [place] [address]-9 504, Ph. Attender: Blayne Mayfield MD [facility] Medical 12/11/2020 12:00:00 AM EDT ALEX ([facility]) Blayne Mayfield MD: [address] [place] [address]-5 504, Ph. Attender: Blayne Mayfield MD [facility] Medical 12/11/2020 12:00:00 AM EDT ALEX ([facility]) Blayne Mayfield MD: [address] [place] [address]-7 504, Ph. Attender: Blayne Mayfield MD [facility] Medical 12/11/2020 12:00:00 AM EDT ALEX ([facility]) Blayne Mayfield MD: [address] [place] [address]-2 504, Ph. Attender: Blayne Mayfield MD [facility] Medical 12/11/2020 12:00:00 AM EDT ALEX ([facility]) Blayne Mayfield MD: [address] [place] [address]-7 504, Ph. Attender: Blayne Mayfield MD [facility] Medical 12/11/2020 12:00:00 AM EDT ALEX ([facility]) Blayne Mayfield MD: [address] [place] [address]-5 504, Ph. Attender: Blayne Mayfield MD [facility] Medical 12/11/2020 12:00:00 AM EDT ALEX ([facility]) Blayne Mayfield MD: [address] [place] [address]-2 504, Ph. Attender: Blayne Mayfield MD [facility] Medical 12/11/2020 12:00:00 AM EDT ALEX ([facility]) Blayne Mayfield MD: [address] [place] [address]-2 504, Ph. Attender: Blayne Mayfield MD [facility] Medical 12/11/2020 12:00:00 AM EDT ALEX ([facility]) Blayne Mayfield MD: [address] [place] [address]-4 504, Ph. Attender: Blayne Mayfield MD [facility] Medical 12/11/2020 12:00:00 AM EDT ALEX ([facility]) Blayne Mayfield MD: [address] [place] [address]-0 504, Ph. Attender: Blayne Mayfield MD [facility] Medical 12/11/2020 12:00:00 AM EDT ALEX ([facility]) Blayne Mayfield MD: [address] [place] [address]-0 504, Ph. Attender: Blayne Mayfield MD [facility] Medical 12/11/2020 12:00:00 AM EDT ALEX ([facility]) Blayne Mayfield MD: [address] [place] [address]-3 504, Ph. Attender: Blayne Mayfield MD [facility] Medical 11/27/2020 12:00:00 AM EDT ALEX ([facility]) Blayne Mayfield MD: [address] [place] [address]-0 504, Ph. Attender: Blayne Mayfield MD [facility] Medical 11/27/2020 12:00:00 AM EDT ALEX ([facility]) Blayne Mayfield MD: [address] [place] [address]-1 504, Ph. Attender: Blayne Mayfield MD [facility] Medical 11/27/2020 12:00:00 AM EDT ALEX ([facility]) Blayne Mayfield MD: [address] [place] [address]-0 504, Ph. Attender: Blayne Mayfield MD [facility] Medical 11/27/2020 12:00:00 AM EDT ALEX ([facility]) Blayne Mayfield MD: [address] [place] [address]-3 504, Ph. Attender: Blayne Mayfield MD [facility] Medical 11/27/2020 12:00:00 AM EDT ALEX ([facility]) Blayne Mayfield MD: [address] [place] [address]-3 504, Ph. Attender: Blayne Mayfield MD [facility] Medical 11/27/2020 12:00:00 AM EDT ALEX ([facility]) Blayne Mayfield MD: [address] [place] [address]-9 504, Ph. Attender: Blayne Mayfield MD [facility] Medical 11/27/2020 12:00:00 AM EDT ALEX ([facility]) Blayne Mayfield MD: [address] [place] [address]-1 504, Ph. Attender: Blayne Mayfield MD [facility] Medical 11/27/2020 12:00:00 AM EDT ALEX ([facility]) Blayne Mayfield MD: [address] [place] [address]-7 504, Ph. Attender: Blayne Mayfield MD [facility] Medical 11/27/2020 12:00:00 AM EDT ALEX ([facility]) Blayne Mayfield MD: [address] [place] [address]8 504, Ph. Attender: Blayne Mayfield MD [facility] Medical 11/27/2020 12:00:00 AM EDT ALEX ([facility]) Blayne Mayfield MD: [address], [place] [address]-8 504, Ph. Attender: Blayne Mayfield MD [facility] Medical 11/27/2020 12:00:00 AM EDT ALEX ([facility]) Blayne Mayfield MD: [address] [place] [address]-0 504, Ph. Attender: Blayne Mayfield MD [facility] Medical 11/27/2020 12:00:00 AM EDT ALEX ([facility]) Blayne Mayfield MD: [address] [place] [address]3 504, Ph. Attender: Blayne Mayfield MD [facility] Medical 11/27/2020 12:00:00 AM EDT ALEX ([facility]) Blayne Mayfield MD: [address] [place] [address]1 504, Ph. Attender: Blayne Mayfield MD [facility] Medical 11/27/2020 12:00:00 AM EDT ALEX ([facility]) Blayne Mayfield MD: [address] [place] [address]3 504, Ph. Attender: Blayne Mayfield MD [facility] Medical 11/27/2020 12:00:00 AM EDT ALEX ([facility]) Blayne Mayfield MD: [address] [place] [address] 504, Ph. Attender: Blayne Mayfield MD [facility] Medical 11/27/2020 12:00:00 AM EDT ALEX ([facility]) Blayne Mayfield MD: [address] [place] [address]3 504, Ph. Attender: Blayne Mayfield MD [facility] Medical 11/25/2020 12:00:00 AM EDT ALEX ([facility]) Blayne Mayfield MD: [address] [place] [address]5 504, Ph. Attender: Blayne Mayfield MD [facility] Medical 11/25/2020 12:00:00 AM EDT ALEX ([facility]) Blayne Mayfield MD: [address] [place] [address], Ph. Attender: Blayne Mayfield MD [facility] Medical 11/25/2020 12:00:00 AM EDT ALEX ([facility]) Blayne Mayfield MD: [address] [place] [address], Ph. Attender: Blayne Mayfield MD [facility] Medical 11/25/2020 12:00:00 AM EDT ALEX ([facility]) Blayne Mayfield MD: [address] [place] [address], Ph. Attender: Blayne Mayfield MD [facility] Medical 11/25/2020 12:00:00 AM EDT ALEX ([facility]) Blayne Mayfield MD: [address] [place] [address], Ph. Attender: Blayne Mayfield MD [facility] Medical 11/25/2020 12:00:00 AM EDT ALEX ([facility]) Blayne Mayfield MD: [address] [place] [address], Ph. Attender: Blayne Mayfield MD [facility] Medical 11/25/2020 12:00:00 AM EDT ALEX ([facility]) Blayne Mayfield MD: [address] [place] [address], Ph. Attender: Blayne Mayfield MD [facility] Medical 11/25/2020 12:00:00 AM EDT ALEX ([facility]) Blayne Mayfield MD: [address] [place] [address], Ph. Attender: Blayne Mayfield MD [facility] Medical 11/25/2020 12:00:00 AM EDT ALEX ([facility]) Blayne Mayfield MD: [address] [place] [address], Ph. Attender: Blayne Mayfield MD [facility] Medical 11/25/2020 12:00:00 AM EDT ALEX ([facility]) Blayne Mayfield MD: [address] [place] [address], Ph. Attender: Blayne Mayfield MD [facility] Medical 11/25/2020 12:00:00 AM EDT ALEX ([facility]) Blayne Mayfield MD: [address] [place] [address], Ph. Attender: Blayne Mayfield MD [facility] Medical 11/25/2020 12:00:00 AM EDT ALEX ([facility]) Blayne Mayfield MD: [address] [place] [address], Ph. Attender: Blayne Mayfield MD [facility] Medical 11/25/2020 12:00:00 AM EDT ALEX ([facility]) Blayne Mayfield MD: [address] [place] [address], Ph. Attender: Blayne Mayfield MD [facility] Medical 11/25/2020 12:00:00 AM EDT ALEX ([facility]) Blayne Mayfield MD: [address] [place] [address], Ph. Attender: Blayne Mayfield MD [facility] Medical 11/25/2020 12:00:00 AM EDT ALEX ([facility]) Blayne Mayfield MD: [address] [place] [address], Ph. Attender: Blayne Mayfield MD [facility] Medical 11/25/2020 12:00:00 AM EDT ALEX ([facility]) Blayne Mayfield MD: [address] [place] [address], Ph. Attender: Blayne Mayfield MD [facility] Medical 11/25/2020 12:00:00 AM EDT ALEX ([facility]) Blayne Mayfield MD: [address] [place] [address], Ph. Attender: Blayne Mayfield MD [facility] Medical 09/19/2020 12:00:00 AM EST ALEX ([facility]) Blayne Mayfield MD: [address] [place] [address], Ph. Attender: Blayne Mayfield MD [facility] Medical 09/19/2020 12:00:00 AM EST ALEX ([facility]) Blayne Mayfield MD: [address] [place] [address], Ph. Attender: Blayne Mayfield MD [facility] Medical 09/19/2020 12:00:00 AM EST ALEX ([facility]) Blayne Mayfield MD: [address] [place] [address], Ph. Attender: Blayne Mayfield MD [facility] Medical 09/19/2020 12:00:00 AM EST ALEX ([facility]) Blayne Mayfield MD: [address] [place] [address], Ph. Attender: Blayne Mayfield MD [facility] Medical 09/19/2020 12:00:00 AM EST ALEX ([facility]) Blayne Mayfield MD: [address] [place] [address], Ph. Attender: Blayne Mayfield MD [facility] Medical 09/19/2020 12:00:00 AM EST ALEX ([facility]) Blayne Mayfield MD: [address] [place] [address], Ph. Attender: Blayne Mayfield MD [facility] Medical 09/19/2020 12:00:00 AM EST ALEX ([facility]) Blayne Mayfield MD: [address] [place] [address], Ph. Attender: Blayne Mayfield MD [facility] Medical 09/19/2020 12:00:00 AM EST ALEX ([facility]) Blayne Mayfield MD: [address] [place] [address], Ph. Attender: Blayne Mayfield MD [facility] Medical 09/19/2020 12:00:00 AM EST ALEX ([facility]) Blayne Mayfield MD: [address] [place] [address], Ph. Attender: Blayne Mayfield MD [facility] Medical 09/19/2020 12:00:00 AM EST ALEX ([facility]) Blayne Mayfield MD: [address] [place] [address], Ph. Attender: Blayne Mayfield MD [facility] Medical 09/19/2020 12:00:00 AM EST ALEX ([facility]) Blayne Mayfield MD: [address] [place] [address], Ph. Attender: Blayne Mayfield MD [facility] Medical 09/19/2020 12:00:00 AM EST ALEX ([facility]) Blayne Mayfield MD: [address] [place] [address], Ph. Attender: Blayne Mayfield MD [facility] Medical 09/19/2020 12:00:00 AM EST ALEX ([facility]) Blayne Mayfield MD: [address] [place] [address], Ph. Attender: Blayne Mayfield MD [facility] Medical 09/19/2020 12:00:00 AM EST ALEX ([facility]) Blayne Mayfield MD: [address] [place] [address], Ph. Attender: Blayne Mayfield MD [facility] Medical 09/19/2020 12:00:00 AM EST ALEX ([facility]) Blayne Mayfield MD: [address] [place] [address], Ph. Attender: Blayne Mayfield MD [facility] Medical 09/19/2020 12:00:00 AM EST ALEX ([facility]) Blayne Mayfield MD: [address] [place] [address], Ph. Attender: Blayne Mayfield MD [facility] Medical 09/19/2020 12:00:00 AM EST ALEX ([facility]) Blayne Mayfield MD: [address] [place] [address], Ph. Attender: Blayne Mayfield MD [facility] Medical 09/19/2020 12:00:00 AM EST ALEX ([facility]) Blayne Mayfield MD: [address] [place] [address], Ph. Attender: Blayne Mayfield MD [facility] Medical 05/08/2020 12:00:00 AM EDT ALEX ([facility]) Blayne Mayfield MD: [address] [place] [address], Ph. Attender: Blayne Mayfield MD [facility] Medical 05/08/2020 12:00:00 AM EDT ALEX ([facility]) Blayne Mayfield MD: [address] [place] [address], Ph. Attender: Blayne Mayfield MD [facility] Medical 05/08/2020 12:00:00 AM EDT ALEX ([facility]) Blayne Mayfield MD: [address] [place] [address], Ph. Attender: Blayne Mayfield MD [facility] Medical 05/08/2020 12:00:00 AM EDT ALEX ([facility]) Blayne Mayfield MD: [address] [place] [address], Ph. Attender: Blayne Mayfield MD [facility] Medical 05/08/2020 12:00:00 AM EDT ALEX ([facility]) Blayne Mayfield MD: [address] [place] [address], Ph. Attender: Blayne Mayfield MD [facility] Medical 05/08/2020 12:00:00 AM EDT ALEX ([facility]) Blayne Mayfield MD: [address] [place] [address], Ph. Attender: Blayne Mayfield MD [facility] Medical 05/08/2020 12:00:00 AM EDT ALEX ([facility]) Blayne Mayfield MD: [address] [place] [address], Ph. Attender: Blayne Mayfield MD [facility] Medical 05/08/2020 12:00:00 AM EDT ALEX ([facility]) Blayne Mayfield MD: [address] [place] [address], Ph. Attender: Blayne Mayfield MD [facility] Medical 05/08/2020 12:00:00 AM EDT ALEX ([facility]) Blayne Mayfield MD: [address] [place] [address], Ph. Attender: Blayne Mayfield MD [facility] Medical 05/08/2020 12:00:00 AM EDT ALEX ([facility]) Blayne Mayfield MD: [address] [place] [address], Ph. Attender: Blayne Mayfield MD [facility] Medical 05/08/2020 12:00:00 AM EDT ALEX ([facility]) Blayne Mayfield MD: [address] [place] [address], Ph. Attender: Blayne Mayfield MD [facility] Medical 05/08/2020 12:00:00 AM EDT ALEX ([facility]) Blayne Mayfield MD: [address] [place] [address], Ph. Attender: Blayne Mayfield MD [facility] Medical 05/08/2020 12:00:00 AM EDT ALEX ([facility]) Blayne Mayfield MD: [address] [place] [address]1 [address], Ph. Attender: Blayne Mayfield MD [facility] Medical 05/08/2020 12:00:00 AM EDT ALEX ([facility]) Blayne Mayfield MD: [address] [place] [address], Ph. Attender: Blayne Mayfield MD [facility] Medical 05/08/2020 12:00:00 AM EDT ALEX ([facility]) Blayne Mayfield MD: [address] [place] [address], Ph. Attender: Blayne Mayfield MD [facility] Medical 05/08/2020 12:00:00 AM EDT ALEX ([facility]) Blayne Mayfield MD: [address] [place] [address], Ph. Attender: Blayne Mayfield MD [facility] Medical 05/08/2020 12:00:00 AM EDT ALEX ([facility]) Blayne Mayfield MD: [address] [place] [address], Ph. Attender: Blayne Mayfield MD [facility] Medical 05/08/2020 12:00:00 AM EDT ALEX ([facility]) Blayne Mayfield MD: [address] [place] [address], Ph. Attender: Blayne Mayfield MD [facility] Medical 05/08/2020 12:00:00 AM EDT ALEX ([facility]) Outpatient Attender: HILARIO ALEJANDRA Physical Therapy 04/25/2020 03:30:00 PM EDT [facility] ([facility]) Outpatient Attender: Blayne Mayfield MD 04/09/2020 08:31:05 AM EDT [facility] Outpatient Attender: Blayne Mayfield MD 04/09/2020 08:31:02 AM EDT [facility] Outpatient Attender: Blayne Mayfield MD FP 03/28/2020 05:19:00 PM EDT [facility] Outpatient Attender: Blayne Mayfield MD FP 03/27/2020 03:39:01 PM EDT [facility] Outpatient Attender: Blayne Mayfield MD FP 03/26/2020 02:59:01 PM EDT [facility] Outpatient Attender: HILARIO ALEJANDRA Physical Therapy 03/20/2020 02:00:00 PM EDT [facility] ([facility]) Outpatient Attender: Blayne Mayfield MD 03/14/2020 11:23:00 AM EDT [facility] Outpatient Attender: Blayne Mayfield MD 03/11/2020 08:53:01 AM EDT [facility] Immunizations Vaccine Date Status Description Data Source(s) COVID-19, mRNA, LNP-S, PF, 100 mcg/0.5 mL dose 11/22/2020 12 :00:00 AM EDT completed 11/22/2020 IMPERIAL ([facility]) COVID-19, mRNA, LNP-S, PF, 100 mcg/0.5 mL dose 11/22/2020 12 :00:00 AM EDT completed 11/22/2020 [facility]) COVID-19, mRNA, LNP-S, PF, 100 mcg/0.5 mL dose 11/22/2020 12 :00:00 AM EDT completed 11/22/2020 [facility]) COVID-19, mRNA, LNP-S, PF, 100 mcg/0.5 mL dose 11/22/2020 12 :00:00 AM EDT completed 11/22/2020 IMPERIAL ([facility]) COVID-19, mRNA, LNP-S, PF, 100 mcg/0.5 mL dose 11/22/2020 12 :00:00 AM EDT completed 11/22/2020 IMPERIAL ([facility]) COVID-19, mRNA, LNP-S, PF, 100 mcg/0.5 mL dose 11/22/2020 12 :00:00 AM EDT completed 11/22/2020 IMPERIAL ([facility]) COVID-19, mRNA, LNP-S, PF, 100 mcg/0.5 mL dose 11/22/2020 12 :00:00 AM EDT completed 11/22/2020 IMPERIAL ([facility]) COVID-19, mRNA, LNP-S, PF, 100 mcg/0.5 mL dose 11/22/2020 12 :00:00 AM EDT completed 11/22/2020 IMPERIAL ([facility]) COVID-19, mRNA, LNP-S, PF, 100 mcg/0.5 mL dose 11/22/2020 12 :00:00 AM EDT completed 11/22/2020 IMPERIAL ([facility]) COVID-19, mRNA, LNP-S, PF, 100 mcg/0.5 mL dose 11/22/2020 12 :00:00 AM EDT completed 11/22/2020 [facility]) COVID-19, mRNA, LNP-S, PF, 100 mcg/0.5 mL dose 11/22/2020 12 :00:00 AM EDT completed 11/22/2020 IMPERIAL ([facility]) COVID-19, mRNA, LNP-S, PF, 100 mcg/0.5 mL dose 11/22/2020 12 :00:00 AM EDT completed 11/22/2020 IMPERIAL ([facility]) COVID-19, mRNA, LNP-S, PF, 100 mcg/0.5 mL dose 11/22/2020 12 :00:00 AM EDT completed 11/22/2020 ALEX ([facility]) COVID-19, mRNA, LNP-S, PF, 100 mcg/0.5 mL dose 11/22/2020 12 :00:00 AM EDT completed 11/22/2020 ALEX ([facility]) COVID-19, mRNA, LNP-S, PF, 100 mcg/0.5 mL dose 11/22/2020 12 :00:00 AM EDT completed 11/22/2020 [facility]) COVID-19, mRNA, LNP-S, PF, 100 mcg/0.5 mL dose 11/22/2020 12 :00:00 AM EDT completed 11/22/2020 ALEX ([facility]) COVID-19, mRNA, LNP-S, PF, 100 mcg/0.5 mL dose 11/22/2020 12 :00:00 AM EDT completed 11/22/2020 ALEX ([facility]) COVID-19 VACCINE Moderna 11/22/2020 12:00:00 AM EDT completed [facility] Vaccine Series Complete: YESThis Data wa s Submitted to [facility] Via [employer]. COVID-19 VACC,MRNA(MODERNA)/PF 11/22/2020 12:00:00 AM EDT completed [facility] COVID-19, mRNA, LNP-S, PF, 100 mcg/0.5 mL dose 10/23/2020 12 :00:00 AM EDT completed 10/23/2020 IMPERIAL ([facility]) COVID-19, mRNA, LNP-S, PF, 100 mcg/0.5 mL dose 10/23/2020 12 :00:00 AM EDT completed 10/23/2020 IMPERIAL ([facility]) COVID-19, mRNA, LNP-S, PF, 100 mcg/0.5 mL dose 10/23/2020 12 :00:00 AM EDT completed 10/23/2020 IMPERIAL ([facility]) COVID-19, mRNA, LNP-S, PF, 100 mcg/0.5 mL dose 10/23/2020 12 :00:00 AM EDT completed 10/23/2020 IMPERIAL ([facility]) COVID-19, mRNA, LNP-S, PF, 100 mcg/0.5 mL dose 10/23/2020 12 :00:00 AM EDT completed 10/23/2020 IMPERIAL ([facility]) COVID-19, mRNA, LNP-S, PF, 100 mcg/0.5 mL dose 10/23/2020 12 :00:00 AM EDT completed 10/23/2020 IMPERIAL ([facility]) COVID-19, mRNA, LNP-S, PF, 100 mcg/0.5 mL dose 10/23/2020 12 :00:00 AM EDT completed 10/23/2020 ALEX ([facility]) COVID-19, mRNA, LNP-S, PF, 100 mcg/0.5 mL dose 10/23/2020 12 :00:00 AM EDT completed 10/23/2020 ALEX ([facility]) COVID-19, mRNA, LNP-S, PF, 100 mcg/0.5 mL dose 10/23/2020 12 :00:00 AM EDT completed 10/23/2020 ALEX ([facility]) COVID-19, mRNA, LNP-S, PF, 100 mcg/0.5 mL dose 10/23/2020 12 :00:00 AM EDT completed 10/23/2020 ALEX ([facility]) COVID-19, mRNA, LNP-S, PF, 100 mcg/0.5 mL dose 10/23/2020 12 :00:00 AM EDT completed 10/23/2020 IMPERIAL ([facility]) COVID-19, mRNA, LNP-S, PF, 100 mcg/0.5 mL dose 10/23/2020 12 :00:00 AM EDT completed 10/23/2020 IMPERIAL ([facility]) COVID-19, mRNA, LNP-S, PF, 100 mcg/0.5 mL dose 10/23/2020 12 :00:00 AM EDT completed 10/23/2020 IMPERIAL ([facility]) COVID-19, mRNA, LNP-S, PF, 100 mcg/0.5 mL dose 10/23/2020 12 :00:00 AM EDT completed 10/23/2020 ALEX ([facility]) COVID-19, mRNA, LNP-S, PF, 100 mcg/0.5 mL dose 10/23/2020 12 :00:00 AM EDT completed 10/23/2020 ALEX ([facility]) COVID-19, mRNA, LNP-S, PF, 100 mcg/0.5 mL dose 10/23/2020 12 :00:00 AM EDT completed 10/23/2020 ALEX ([facility]) COVID-19, mRNA, LNP-S, PF, 100 mcg/0.5 mL dose 10/23/2020 12 :00:00 AM EDT completed 10/23/2020 ALEX ([facility]) COVID-19 VACCINE Moderna 10/23/2020 12:00:00 AM EDT completed [facility] Vaccine Series Complete: NOThis Data was Submitted to [facility] Via [employer]. COVID-19 VACCINE, MRNA-[id number], LNP-S (MODERNA)/PF 10/23/2020 1 2:00:00 AM EDT completed [facility] INFLUENZA VIRUS VACCINE QUADRIVALENT 2019- (6 MOS AN D UP) 05/08/2020 12:00:00 AM EDT completed [facility] Medications Medication Brand Name Start Date Product Form Dose Route Admi nistrative Instructions Pharmacy Instructions Status Indications Reaction Description Data Source(s) 150 mg 04/26/2021 12:00:00 AM EDT capsule 60 TAKE ONE CAPSULE BY MOUTH TWICE A DAY MAXIMUM DAILY DOSE = 2 TAKE ONE CAPSULE BY MOUTH TWICE A DAY MA XIMUM DAILY DOSE = 2 SOLD: 04/26/2021 [facility] buspirone hydrochloride 5 MG Oral Tablet BUSPIRONE HCL 04/24/2021 12:00:00 AM EDT tablet 60 TAKE ONE TABLET BY MOUTH THR EE TIMES A DAY TAKE ONE TABLET BY MOUTH THREE TIMES A DAY SOLD: 04/25/2021 [facility] 4 mg 04/03/2021 12:00:00 AM EDT gum [address] 1 GUM IN MOUTH NEEDED UP TO [address] 1 GUM IN MOUTH NEEDED UP TO 10 PIECES PER DAY SOLD: 04/03/2021 [facility] buspirone hydrochloride 5 MG Oral Tablet BUSPIRONE HCL 04/03/2021 12:00:00 AM EDT tablet 60 TAKE ONE TABLET BY MOUTH TWI CE A DAY TAKE ONE TABLET BY MOUTH TWICE A DAY SOLD: 04/03/2021 [facility] 21 mg/24 hr 04/03/2021 12:00:00 AM EDT patch 24 hour 28 APPLY 1 PATCH TOPICALLY ONCE DAILY APPLY 1 PATCH TOPICALLY ONCE DAILY SOLD: 04/03/2021 [facility] doxycycline hyclate 100 MG Oral Tablet DOXYCYCLINE HYCLATE 0 04/02/2021 12:00:00 AM EDT tablet 14 TAKE ONE TABLET BY MOUTH TWI CE A DAY TAKE ONE TABLET BY MOUTH TWICE A DAY SOLD: 04/02/2021 [facility] 20 mg 04/02/2021 12:00:00 AM EDT tablet 14 TAKE TWO TABLETS BY MOUTH EVERY DAY TAKE TWO TABLETS BY MOUTH EVERY DAY SOLD: 04/02/2021 [facility] 150 mg 03/23/2021 12:00:00 AM EDT capsule 60 TAKE ONE CAPSULE BY MOUTH TWICE A DAY MAXIMUM DAILY DOSE = 2 TAKE ONE CAPSULE BY MOUTH TWICE A DAY MA XIMUM DAILY DOSE = 2 SOLD: 03/23/2021 [facility] 100 mg/mL 03/10/2021 12:00:00 AM EDT oil 10 INJECT 1ML INTRAMUSCULARLY EVERY WEEK, MAXIMUM DAILY DOSE = 1ML/WEEK INJECT 1ML INTRAMUSCULARLY EVERY WEEK, MAXIMUM DAILY DOSE = 1ML/WEEK SOLD: 03/11/2021 [facility] pantoprazole 40 MG Delayed Release Oral Tablet PANTOPRAZOLE SODIUM 03/06/2021 12:00:00 AM EDT tablet,delayed release (DR/EC) 30 T REYNOLD ONE TABLET BY MOUTH EVERY DAY TAKE ONE TABLET BY MOUTH EVERY DAY SOLD: 03/07/2021 [facility] pantoprazole 40 MG Delayed Release Oral Tablet PANTOPRAZOLE SODIUM 03/06/2021 12:00:00 AM EDT tablet,delayed release (DR/EC) 30 T REYNOLD ONE TABLET BY MOUTH EVERY DAY TAKE ONE TABLET BY MOUTH EVERY DAY SOLD: 04/25/2021 [facility] pantoprazole 40 MG Delayed Release Oral Tablet PANTOPRAZOLE SODIUM 03/06/2021 12:00:00 AM EDT tablet,delayed release (DR/EC) 30 T REYNOLD ONE TABLET BY MOUTH EVERY DAY TAKE ONE TABLET BY MOUTH EVERY DAY SOLD: 04/01/2021 [facility] 150 mg 02/20/2021 12:00:00 AM EDT capsule 60 TAKE ONE CAPSULE BY MOUTH TWICE A DAY MAXIMUM DAILY DOSE = 2 TAKE ONE CAPSULE BY MOUTH TWICE A DAY MA XIMUM DAILY DOSE = 2 SOLD: 02/21/2021 [facility] 150 mg 01/22/2021 12:00:00 AM EDT capsule 60 TAKE ONE CAPSULE BY MOUTH TWICE A DAY MAXIMUM DAILY DOSE = 2 CAPS TAKE ONE CAPSULE BY MOUTH TWICE A DAY MA XIMUM DAILY DOSE = 2 CAPS SOLD: 01/22/2021 [facility] 10 mg 01/22/2021 12:00:00 AM EDT tablet 90 TAKE ONE TABLET BY MOUTH EVERY DAY TAKE ONE TABLET BY MOUTH EVERY DAY SOLD: 01/22/2021 [facility] 10 mg 01/22/2021 12:00:00 AM EDT tablet 90 TAKE ONE TABLET BY MOUTH EVERY DAY TAKE ONE TABLET BY MOUTH EVERY DAY SOLD: 04/25/2021 [facility] 150 mg 12/23/2020 12:00:00 AM EDT capsule 60 TAKE ONE CAPSULE BY MOUTH TWICE A DAY MAXIMUM DAILY DOSE = 2 TAKE ONE CAPSULE BY MOUTH TWICE A DAY MA XIMUM DAILY DOSE = 2 SOLD: 12/23/2020 [facility] Escitalopram 20 MG Oral Tablet ESCITALOPRAM OXALATE 12/06/2020 1 2:00:00 AM EDT tablet 90 TAKE ONE TABLET BY MOUTH EVERY D AY TAKE ONE TABLET BY MOUTH EVERY DAY SOLD: 12/06/2020 [facility] 3 mL 23 gauge x 1 1/2" 11/28/2020 12:00:00 AM EDT syringe 2 USE DIRECTED FOR INJECTION USE DIRECTED FOR INJECTION SOLD: 11/29/2020 [facility] 18 gauge x 1" 11/27/2020 12:00:00 AM EDT needle 2 USE DIRECTED USE DIRECTED SOLD: 11/29/2020 [facility] ALCOHOL ANTISEPTIC PADS 11/27/2020 12:00:00 AM EDT pads, med icated 100 USE DIRECTED USE DIRECTED SOLD: 11/29/2020 [facility] 100 mg/mL 11/26/2020 12:00:00 AM EDT oil 10 INJECT 1ML INTRAMUSCULARLY EVERY 2 WEEKS MAXIMUM DAILY DOSE = 1ML/2 WEEKS INJECT 1ML INTRAMUSCULARLY EVERY 2 WEEKS MAXIMUM DAILY DOSE = 1ML/2 WEEKS SOLD: 11/26/2020 [facility] 60 ACTUAT Fluticasone propionate 0.25 MG /ACTUAT / salmeterol 0.05 MG/ACTUAT Dry Powder Inhaler fluticasone 250 mcg-salmeterol 50 mcg/dose blistr powdr for inhalation USE DIRECTED fluticasone 250 mcg-salmeterol 50 mcg/do se blistr powdr for inhalation USE DIRECTED 11/25/2020 12:00:00 AM EDT completed 60 ACTUAT fluticason e propionate 0.25 MG/ACTUAT / salmeterol 0.05 MG/ACTUAT Dry Powder Inhaler ALEX ([facility]) 60 ACTUAT Fluticasone propionate 0.25 MG /ACTUAT / salmeterol 0.05 MG/ACTUAT Dry Powder Inhaler fluticasone 250 mcg-salmeterol 50 mcg/dose blistr powdr for inhalation USE DIRECTED fluticasone 250 mcg-salmeterol 50 mcg/do se blistr powdr for inhalation USE DIRECTED 11/25/2020 12:00:00 AM EDT completed 60 ACTUAT fluticason e propionate 0.25 MG/ACTUAT / salmeterol 0.05 MG/ACTUAT Dry Powder Inhaler ALEX ([facility]) 60 ACTUAT Fluticasone propionate 0.25 MG /ACTUAT / salmeterol 0.05 MG/ACTUAT Dry Powder Inhaler fluticasone 250 mcg-salmeterol 50 mcg/dose blistr powdr for inhalation USE DIRECTED fluticasone 250 mcg-salmeterol 50 mcg/do se blistr powdr for inhalation USE DIRECTED 11/25/2020 12:00:00 AM EDT completed 60 ACTUAT fluticason e propionate 0.25 MG/ACTUAT / salmeterol 0.05 MG/ACTUAT Dry Powder Inhaler ALEX ([facility]) 60 ACTUAT Fluticasone propionate 0.25 MG /ACTUAT / salmeterol 0.05 MG/ACTUAT Dry Powder Inhaler fluticasone 250 mcg-salmeterol 50 mcg/dose blistr powdr for inhalation USE DIRECTED fluticasone 250 mcg-salmeterol 50 mcg/do se blistr powdr for inhalation USE DIRECTED 11/25/2020 12:00:00 AM EDT completed 60 ACTUAT fluticason e propionate 0.25 MG/ACTUAT / salmeterol 0.05 MG/ACTUAT Dry Powder Inhaler ALEX ([facility]) 60 ACTUAT Fluticasone propionate 0.25 MG /ACTUAT / salmeterol 0.05 MG/ACTUAT Dry Powder Inhaler fluticasone 250 mcg-salmeterol 50 mcg/dose blistr powdr for inhalation USE DIRECTED fluticasone 250 mcg-salmeterol 50 mcg/do se blistr powdr for inhalation USE DIRECTED 11/25/2020 12:00:00 AM EDT completed 60 ACTUAT fluticason e propionate 0.25 MG/ACTUAT / salmeterol 0.05 MG/ACTUAT Dry Powder Inhaler LAEX ([facility]) 60 ACTUAT Fluticasone propionate 0.25 MG /ACTUAT / salmeterol 0.05 MG/ACTUAT Dry Powder Inhaler fluticasone 250 mcg-salmeterol 50 mcg/dose blistr powdr for inhalation USE DIRECTED fluticasone 250 mcg-salmeterol 50 mcg/do se blistr powdr for inhalation USE DIRECTED 11/25/2020 12:00:00 AM EDT completed 60 ACTUAT fluticason e propionate 0.25 MG/ACTUAT / salmeterol 0.05 MG/ACTUAT Dry Powder Inhaler ALEX ([facility]) 60 ACTUAT Fluticasone propionate 0.25 MG /ACTUAT / salmeterol 0.05 MG/ACTUAT Dry Powder Inhaler fluticasone 250 mcg-salmeterol 50 mcg/dose blistr powdr for inhalation USE DIRECTED fluticasone 250 mcg-salmeterol 50 mcg/do se blistr powdr for inhalation USE DIRECTED 11/25/2020 12:00:00 AM EDT completed 60 ACTUAT fluticason e propionate 0.25 MG/ACTUAT / salmeterol 0.05 MG/ACTUAT Dry Powder Inhaler ALEX ([facility]) 60 ACTUAT Fluticasone propionate 0.25 MG /ACTUAT / salmeterol 0.05 MG/ACTUAT Dry Powder Inhaler fluticasone 250 mcg-salmeterol 50 mcg/dose blistr powdr for inhalation USE DIRECTED fluticasone 250 mcg-salmeterol 50 mcg/do se blistr powdr for inhalation USE DIRECTED 11/25/2020 12:00:00 AM EDT completed 60 ACTUAT fluticason e propionate 0.25 MG/ACTUAT / salmeterol 0.05 MG/ACTUAT Dry Powder Inhaler ALEX ([facility]) 60 ACTUAT Fluticasone propionate 0.25 MG /ACTUAT / salmeterol 0.05 MG/ACTUAT Dry Powder Inhaler fluticasone 250 mcg-salmeterol 50 mcg/dose blistr powdr for inhalation USE DIRECTED fluticasone 250 mcg-salmeterol 50 mcg/do se blistr powdr for inhalation USE DIRECTED 11/25/2020 12:00:00 AM EDT completed 60 ACTUAT fluticason e propionate 0.25 MG/ACTUAT / salmeterol 0.05 MG/ACTUAT Dry Powder Inhaler ALEX ([facility]) 60 ACTUAT Fluticasone propionate 0.25 MG /ACTUAT / salmeterol 0.05 MG/ACTUAT Dry Powder Inhaler fluticasone 250 mcg-salmeterol 50 mcg/dose blistr powdr for inhalation USE DIRECTED fluticasone 250 mcg-salmeterol 50 mcg/do se blistr powdr for inhalation USE DIRECTED 11/25/2020 12:00:00 AM EDT completed 60 ACTUAT fluticason e propionate 0.25 MG/ACTUAT / salmeterol 0.05 MG/ACTUAT Dry Powder Inhaler ALEX ([facility]) 60 ACTUAT Fluticasone propionate 0.25 MG /ACTUAT / salmeterol 0.05 MG/ACTUAT Dry Powder Inhaler fluticasone 250 mcg-salmeterol 50 mcg/dose blistr powdr for inhalation USE DIRECTED fluticasone 250 mcg-salmeterol 50 mcg/do se blistr powdr for inhalation USE DIRECTED 11/25/2020 12:00:00 AM EDT completed 60 ACTUAT fluticason e propionate 0.25 MG/ACTUAT / salmeterol 0.05 MG/ACTUAT Dry Powder Inhaler ALEX ([facility]) 60 ACTUAT Fluticasone propionate 0.25 MG /ACTUAT / salmeterol 0.05 MG/ACTUAT Dry Powder Inhaler fluticasone 250 mcg-salmeterol 50 mcg/dose blistr powdr for inhalation USE DIRECTED fluticasone 250 mcg-salmeterol 50 mcg/do se blistr powdr for inhalation USE DIRECTED 11/25/2020 12:00:00 AM EDT completed 60 ACTUAT fluticason e propionate 0.25 MG/ACTUAT / salmeterol 0.05 MG/ACTUAT Dry Powder Inhaler ALEX ([facility]) 60 ACTUAT Fluticasone propionate 0.25 MG /ACTUAT / salmeterol 0.05 MG/ACTUAT Dry Powder Inhaler fluticasone 250 mcg-salmeterol 50 mcg/dose blistr powdr for inhalation USE DIRECTED fluticasone 250 mcg-salmeterol 50 mcg/do se blistr powdr for inhalation USE DIRECTED 11/25/2020 12:00:00 AM EDT completed 60 ACTUAT fluticason e propionate 0.25 MG/ACTUAT / salmeterol 0.05 MG/ACTUAT Dry Powder Inhaler ALEX ([facility]) 60 ACTUAT Fluticasone propionate 0.25 MG /ACTUAT / salmeterol 0.05 MG/ACTUAT Dry Powder Inhaler fluticasone 250 mcg-salmeterol 50 mcg/dose blistr powdr for inhalation USE DIRECTED fluticasone 250 mcg-salmeterol 50 mcg/do se blistr powdr for inhalation USE DIRECTED 11/25/2020 12:00:00 AM EDT completed 60 ACTUAT fluticason e propionate 0.25 MG/ACTUAT / salmeterol 0.05 MG/ACTUAT Dry Powder Inhaler ALEX ([facility]) 60 ACTUAT Fluticasone propionate 0.25 MG /ACTUAT / salmeterol 0.05 MG/ACTUAT Dry Powder Inhaler fluticasone 250 mcg-salmeterol 50 mcg/dose blistr powdr for inhalation USE DIRECTED fluticasone 250 mcg-salmeterol 50 mcg/do se blistr powdr for inhalation USE DIRECTED 11/25/2020 12:00:00 AM EDT completed 60 ACTUAT fluticason e propionate 0.25 MG/ACTUAT / salmeterol 0.05 MG/ACTUAT Dry Powder Inhaler ALEX ([facility]) 60 ACTUAT Fluticasone propionate 0.25 MG /ACTUAT / salmeterol 0.05 MG/ACTUAT Dry Powder Inhaler fluticasone 250 mcg-salmeterol 50 mcg/dose blistr powdr for inhalation USE DIRECTED fluticasone 250 mcg-salmeterol 50 mcg/do se blistr powdr for inhalation USE DIRECTED 11/25/2020 12:00:00 AM EDT completed 60 ACTUAT fluticason e propionate 0.25 MG/ACTUAT / salmeterol 0.05 MG/ACTUAT Dry Powder Inhaler ALEX ([facility]) 60 ACTUAT Fluticasone propionate 0.25 MG /ACTUAT / salmeterol 0.05 MG/ACTUAT Dry Powder Inhaler fluticasone 250 mcg-salmeterol 50 mcg/dose blistr powdr for inhalation USE DIRECTED fluticasone 250 mcg-salmeterol 50 mcg/do se blistr powdr for inhalation USE DIRECTED 11/25/2020 12:00:00 AM EDT completed 60 ACTUAT fluticason e propionate 0.25 MG/ACTUAT / salmeterol 0.05 MG/ACTUAT Dry Powder Inhaler ALEX ([facility]) 150 mg 11/21/2020 12:00:00 AM EDT capsule 60 TAKE ONE CAPSULE BY MOUTH TWICE A DAY MAXIMUM DAILY DOSE = 2 TAKE ONE CAPSULE BY MOUTH TWICE A DAY MA XIMUM DAILY DOSE = 2 SOLD: 11/22/2020 [facility] pantoprazole 40 MG Delayed Release Oral Tablet PANTOPRAZOLE SODIUM 11/13/2020 12:00:00 AM EDT tablet,delayed release (DR/EC) 30 T REYNOLD ONE TABLET BY MOUTH EVERY DAY TAKE ONE TABLET BY MOUTH EVERY DAY SOLD: 12/06/2020 [facility] pantoprazole 40 MG Delayed Release Oral Tablet PANTOPRAZOLE SODIUM 11/13/2020 12:00:00 AM EDT tablet,delayed release (DR/EC) 30 T REYNOLD ONE TABLET BY MOUTH EVERY DAY TAKE ONE TABLET BY MOUTH EVERY DAY SOLD: 01/02/2021 [facility] pantoprazole 40 MG Delayed Release Oral Tablet PANTOPRAZOLE SODIUM 11/13/2020 12:00:00 AM EDT tablet,delayed release (DR/EC) 30 T REYNOLD ONE TABLET BY MOUTH EVERY DAY TAKE ONE TABLET BY MOUTH EVERY DAY SOLD: 11/14/2020 [facility] pantoprazole 40 MG Delayed Release Oral Tablet PANTOPRAZOLE SODIUM 11/13/2020 12:00:00 AM EDT tablet,delayed release (DR/EC) 30 T REYNOLD ONE TABLET BY MOUTH EVERY DAY TAKE ONE TABLET BY MOUTH EVERY DAY SOLD: 02/04/2021 [facility] 150 mg 10/22/2020 12:00:00 AM EDT capsule 60 TAKE ONE CAPSULE BY MOUTH TWICE A DAY MAXIMUM DAILY DOSE = 2 TAKE ONE CAPSULE BY MOUTH TWICE A DAY ASHELY AVILA DAILY DOSE = 2 SOLD: 10/22/2020 [facility] 150 mg 09/21/2020 12:00:00 AM EST capsule 60 TAKE ONE CAPSULE BY MOUTH TWICE A DAY MAXIMUM DAILY DOSE = 2 TAKE ONE CAPSULE BY MOUTH TWICE A DAY ASHELY AVILA DAILY DOSE = 2 SOLD: 09/21/2020 [facility] Escitalopram 20 MG Oral Tablet ESCITALOPRAM OXALATE 08/28/2020 1 2:00:00 AM EST tablet 30 TAKE ONE TABLET BY MOUTH EVERY D AY TAKE ONE TABLET BY MOUTH EVERY DAY SOLD: 11/04/2020 [facility] Escitalopram 20 MG Oral Tablet ESCITALOPRAM OXALATE 08/28/2020 1 2:00:00 AM EST tablet 30 TAKE ONE TABLET BY MOUTH EVERY D AY TAKE ONE TABLET BY MOUTH EVERY DAY SOLD: 10/04/2020 [facility] Escitalopram 20 MG Oral Tablet ESCITALOPRAM OXALATE 08/28/2020 1 2:00:00 AM EST tablet 30 TAKE ONE TABLET BY MOUTH EVERY D AY TAKE ONE TABLET BY MOUTH EVERY DAY SOLD: 08/30/2020 [facility] 150 mg 08/23/2020 12:00:00 AM EST capsule 60 TAKE ONE CAPSULE BY MOUTH TWICE A DAY MAXIMUM DAILY DOSE = 2 CAPSULES TAKE ONE CAPSULE BY MOUTH TWICE A DAY MAXIMUM DAILY DOSE = 2 CAPSULES SOLD: 08/23/2020 [facility] pantoprazole 40 MG Delayed Release Oral Tablet PANTOPRAZOLE SODIUM 07/08/2020 12:00:00 AM EST tablet,delayed release (DR/EC) 30 T REYNOLD ONE TABLET BY MOUTH EVERY DAY TAKE ONE TABLET BY MOUTH EVERY DAY SOLD: 10/08/2020 [facility] pantoprazole 40 MG Delayed Release Oral Tablet PANTOPRAZOLE SODIUM 07/08/2020 12:00:00 AM EST tablet,delayed release (DR/EC) 30 T REYNOLD ONE TABLET BY MOUTH EVERY DAY TAKE ONE TABLET BY MOUTH EVERY DAY SOLD: 09/09/2020 [facility] pantoprazole 40 MG Delayed Release Oral Tablet PANTOPRAZOLE SODIUM 07/08/2020 12:00:00 AM EST tablet,delayed release (DR/EC) 30 T REYNOLD ONE TABLET BY MOUTH EVERY DAY TAKE ONE TABLET BY MOUTH EVERY DAY SOLD: 08/12/2020 [facility] pantoprazole 40 MG Delayed Release Oral Tablet PANTOPRAZOLE SODIUM 07/08/2020 12:00:00 AM EST tablet,delayed release (DR/EC) 30 T REYNOLD ONE TABLET BY MOUTH EVERY DAY TAKE ONE TABLET BY MOUTH EVERY DAY SOLD: 07/10/2020 [facility] 200 mg 05/28/2020 12:00:00 AM EST capsule 30 TAKE ONE CAPSULE BY MOUTH EVERY DAY MAXIMUM DAILY DOSE = 1 TAKE ONE CAPSULE BY MOUTH EVERY DAY MAXI MUM DAILY DOSE = 1 SOLD: 05/29/2020 [facility] 200 mg 05/28/2020 12:00:00 AM EST capsule 30 TAKE ONE CAPSULE BY MOUTH EVERY DAY MAXIMUM DAILY DOSE = 1 TAKE ONE CAPSULE BY MOUTH EVERY DAY MAXI MUM DAILY DOSE = 1 SOLD: 06/27/2020 [facility] 200 mg 05/28/2020 12:00:00 AM EST capsule 30 TAKE ONE CAPSULE BY MOUTH EVERY DAY MAXIMUM DAILY DOSE = 1 TAKE ONE CAPSULE BY MOUTH EVERY DAY MAXI MUM DAILY DOSE = 1 SOLD: 07/27/2020 [facility] Escitalopram 20 MG Oral Tablet ESCITALOPRAM OXALATE 05/18/2020 1 2:00:00 AM EST tablet 30 TAKE ONE TABLET BY MOUTH EVERY D AY TAKE ONE TABLET BY MOUTH EVERY DAY SOLD: 08/04/2020 [facility] Escitalopram 20 MG Oral Tablet ESCITALOPRAM OXALATE 05/18/2020 1 2:00:00 AM EST tablet 30 TAKE ONE TABLET BY MOUTH EVERY D AY TAKE ONE TABLET BY MOUTH EVERY DAY SOLD: 05/18/2020 [facility] Escitalopram 20 MG Oral Tablet ESCITALOPRAM OXALATE 05/18/2020 1 2:00:00 AM EST tablet 30 TAKE ONE TABLET BY MOUTH EVERY D AY TAKE ONE TABLET BY MOUTH EVERY DAY SOLD: 06/27/2020 [facility] Escitalopram 10 MG Oral Tablet ESCITALOPRAM OXALATE 04/30/2020 1 2:00:00 AM EDT tablet 30 TAKE ONE TABLET BY MOUTH EVERY D AY TAKE ONE TABLET BY MOUTH EVERY DAY SOLD: 04/30/2020 [facility] 600 mg 04/13/2020 12:00:00 AM EDT tablet 60 TAKE ONE TABLET BY MOUTH TWICE A DAY TAKE ONE TABLET BY MOUTH TWICE A DAY SOLD: 04/13/2020 [facility] 875-125 mg 04/13/2020 12:00:00 AM EDT tablet 28 TAKE ONE TABLET BY MOUTH TWICE A DAY FOR 14 DAYS TAKE ONE TABLET BY MOUTH TWICE A DAY FOR 14 DAYS SOLD: 04/13/2020 [facility] 200 mg 03/28/2020 12:00:00 AM EDT capsule 30 TAKE ONE CAPSULE BY MOUTH EVERY DAY, MAXIMUM DAILY DOSE = 1 TAKE ONE CAPSULE BY MOUTH EVERY DAY, MAX IMUM DAILY DOSE = 1 SOLD: 04/27/2020 [facility] 10 mg 03/28/2020 12:00:00 AM EDT tablet 90 TAKE ONE TABLET BY MOUTH EVERY DAY TAKE ONE TABLET BY MOUTH EVERY DAY SOLD: 09/23/2020 [facility] 10 mg 03/28/2020 12:00:00 AM EDT tablet 90 TAKE ONE TABLET BY MOUTH EVERY DAY TAKE ONE TABLET BY MOUTH EVERY DAY SOLD: 03/28/2020 [facility] 10 mg 03/28/2020 12:00:00 AM EDT tablet 90 TAKE ONE TABLET BY MOUTH EVERY DAY TAKE ONE TABLET BY MOUTH EVERY DAY SOLD: 06/27/2020 [facility] 200 mg 03/28/2020 12:00:00 AM EDT capsule 30 TAKE ONE CAPSULE BY MOUTH EVERY DAY, MAXIMUM DAILY DOSE = 1 TAKE ONE CAPSULE BY MOUTH EVERY DAY, MAX IMUM DAILY DOSE = 1 SOLD: 03/28/2020 [facility] Methylprednisolone 4 MG Oral Tablet [Medrol] Medrol 03/2020 12:00:00 AM EDT active MEDENT ( [facility]) gabapentin 300 MG Oral Capsule Gabapentin 03/20/2020 12:00:00 AM EDT ORAL active MEDENT ([facility]) 300 mg 03/20/2020 12:00:00 AM EDT capsule 90 TAKE ONE CAPSULE BY MOUTH AT BEDTIME FOR 7 DAYS, THEN TAKE ONE CAPSULE BY MOUTH TWICE A DAY FOR 7 DAYS, THEN TAKE ONE CAPSULE BY MOUTH THREE TIMES A DAY TAKE ONE CAPSULE BY MOUTH AT BEDTIME FOR 7 DAYS, THEN TAKE ONE CAPSULE BY MOUTH TWICE A DAY FOR 7 DAYS, THEN TAKE ONE CAPSULE BY MOUTH THREE TIMES A DAY SOLD: 03/22/2020 [facility] 4 mg 03/20/2020 12:00:00 AM EDT tablets,dose pack 21 TAKE DOSE BRIJESH DIRECTED ON SHEET TAKE DOSE BRIJESH DIRECTED ON SHEET SOLD: 03/22/2020 [facility] 300 mg 03/20/2020 12:00:00 AM EDT capsule 90 TAKE ONE CAPSULE BY MOUTH AT BEDTIME FOR 7 DAYS, THEN TAKE ONE CAPSULE BY MOUTH TWICE A DAY FOR 7 DAYS, THEN TAKE ONE CAPSULE BY MOUTH THREE TIMES A DAY TAKE ONE CAPSULE BY MOUTH AT BEDTIME FOR 7 DAYS, THEN TAKE ONE CAPSULE BY MOUTH TWICE A DAY FOR 7 DAYS, THEN TAKE ONE CAPSULE BY MOUTH THREE TIMES A DAY SOLD: 04/25/2020 [facility] 40 mg 02/27/2020 12:00:00 AM EDT tablet,delayed release (DR/EC) 30 TAKE ONE TABLET BY MOUTH EVERY DAY TAKE ONE TABLET BY MOUTH EVERY DAY SOLD: 03/28/2020 [facility] pantoprazole 40 MG Delayed Release Oral Tablet PANTOPRAZOLE SODIUM 02/27/2020 12:00:00 AM EDT tablet,delayed release (DR/EC) 30 T REYNOLD ONE TABLET BY MOUTH EVERY DAY TAKE ONE TABLET BY MOUTH EVERY DAY SOLD: 04/30/2020 [facility] pantoprazole 40 MG Delayed Release Oral Tablet PANTOPRAZOLE SODIUM 02/27/2020 12:00:00 AM EDT tablet,delayed release (DR/EC) 30 T REYNOLD ONE TABLET BY MOUTH EVERY DAY TAKE ONE TABLET BY MOUTH EVERY DAY SOLD: 06/09/2020 [facility] 20 mg 02/22/2020 12:00:00 AM EDT tablet 30 TAKE ONE TABLET BY MOUTH EVERY DAY TAKE ONE TABLET BY MOUTH EVERY DAY SOLD: 03/28/2020 [facility] 20 mg 02/22/2020 12:00:00 AM EDT tablet 30 TAKE ONE TABLET BY MOUTH EVERY DAY TAKE ONE TABLET BY MOUTH EVERY DAY SOLD: 07/10/2020 [facility] 20 mg 02/22/2020 12:00:00 AM EDT tablet 30 TAKE ONE TABLET BY MOUTH EVERY DAY TAKE ONE TABLET BY MOUTH EVERY DAY SOLD: 06/09/2020 [facility] 20 mg 02/22/2020 12:00:00 AM EDT tablet 30 TAKE ONE TABLET BY MOUTH EVERY DAY TAKE ONE TABLET BY MOUTH EVERY DAY SOLD: 04/30/2020 [facility] Escitalopram 20 MG Oral Tablet ESCITALOPRAM OXALATE 01/27/2020 1 2:00:00 AM EDT tablet 30 TAKE ONE TABLET BY MOUTH EVERY D AY TAKE ONE TABLET BY MOUTH EVERY DAY SOLD: 03/28/2020 [facility] Tobramycin 3 MG/ML Ophthalmic Solution t obramycin 0.3 % eye drops INSTILL 2 DROPS INTO AFFECTED EYE S THREE TIMES A DAY FOR 7 DAYS tobramycin 0.3 % eye drops INSTILL 2 DROPS INTO AFFECTED EYE S THREE TIMES A DAY FOR 7 DAYS completed tobramycin 3 MG/ML Ophtha lmic Solution ALEX ([facility]) gabapentin 300 MG Oral Capsule gabapenti n 300 mg capsule TAKE ONE CAPSULE BY MOUTH AT BEDTIME FOR 7 DAYS THEN TAKE ONE CAPSULE BY MOUTH TWICE A DAY FOR 7 DAYS THEN TAKE ONE CAPSULE BY MOUTH THREE gabapentin 300 mg capsule TAKE ONE CAPSULE BY MOUTH AT BEDTIME FOR 7 DAYS THEN TAKE ONE CAPSULE BY MOUTH TWICE A DAY FOR 7 DAYS THEN TAKE ONE CAPSULE BY MOUTH THREE completed gabapentin 300 MG Oral Capsule ALEX ([facility]) Acetaminophen 325 MG Oral Tablet acetami nophen 325 mg tablet TAKE ONE TABLET BY MOUTH EVERY 6 HOURS NEEDED FOR PAIN acetaminophen 325 mg tablet TAKE ONE TABLET BY MOUTH EVERY 6 HOURS NEEDED FOR PAIN completed acetaminophen 325 MG Oral Tablet IMPERIAL ([facility]) Escitalopram 20 MG Oral Tablet escitalopram 20 mg tabl et escitalopram 20 mg tablet completed escitalopram 20 MG Oral Tablet IMPERIAL ([facility]) Prednisone 20 MG Oral Tablet prednisone 20 mg tablet TAKE THREE TABLETS BY MOUTH EVERY DAY DAYS 1 3 THEN TAKE TWO TABLETS BY MOUTH EVERY DAY DAYS 4 7 THEN TAKE ONE TABLET BY MOUTH EVERY DAY D prednisone 20 mg tablet TAKE THREE TABLE TS BY MOUTH EVERY DAY DAYS 1 3 THEN TAKE TWO TABLETS BY MOUTH EVERY DAY DAYS 4 7 THEN TAKE ONE TABLET BY MOUTH EVERY DAY D completed prednisone 20 MG Oral Tablet ALEX ([facility]) Acetaminophen 325 MG Oral Tablet acetami nophen 325 mg tablet TAKE ONE TABLET BY MOUTH EVERY 6 HOURS NEEDED FOR PAIN acetaminophen 325 mg tablet TAKE ONE TABLET BY MOUTH EVERY 6 HOURS NEEDED FOR PAIN completed acetaminophen 325 MG Oral Tablet ALEX ([facility]) methylprednisolone 4 mg tablets in a dos e pack TAKE DOSE BRIJESH DIRECTED ON SHEET [id number] completed methylpre dnisolone 4 mg tablets in a dose pack ALEX ([facility]) Ibuprofen 600 MG Oral Tablet ibuprofen 6 00 mg tablet TAKE ONE TABLET BY MOUTH TWICE A DAY ibuprofen 600 mg tablet TAKE ONE TABLET BY MOUTH TWICE A DAY completed ibuprofen 600 MG Ora l Tablet IMPERIAL ([facility]) Escitalopram 10 MG Oral Tablet escitalop ac 10 mg tablet TAKE ONE TABLET BY MOUTH EVERY DAY escitalopram 10 mg tablet TAKE ONE TABLET BY MOUTH EVERY DAY completed escitalopram 1 0 MG Oral Tablet ALEX ([facility]) Tobramycin 3 MG/ML Ophthalmic Solution t obramycin 0.3 % eye drops INSTILL 2 DROPS INTO AFFECTED EYE S THREE TIMES A DAY FOR 7 DAYS tobramycin 0.3 % eye drops INSTILL 2 DROPS INTO AFFECTED EYE S THREE TIMES A DAY FOR 7 DAYS completed tobramycin 3 MG/ML Ophtha lmic Solution ALEX ([facility]) Tobramycin 3 MG/ML Ophthalmic Solution t obramycin 0.3 % eye drops INSTILL 2 DROPS INTO AFFECTED EYE S THREE TIMES A DAY FOR 7 DAYS tobramycin 0.3 % eye drops INSTILL 2 DROPS INTO AFFECTED EYE S THREE TIMES A DAY FOR 7 DAYS completed tobramycin 3 MG/ML Ophtha lmic Solution ALEX ([facility]) Escitalopram 10 MG Oral Tablet escitalop ac 10 mg tablet TAKE ONE TABLET BY MOUTH EVERY DAY escitalopram 10 mg tablet TAKE ONE TABLET BY MOUTH EVERY DAY completed escitalopram 1 0 MG Oral Tablet ALEX ([facility]) meloxicam 7.5 MG Oral Tablet meloxicam 7 .5 mg tablet TAKE ONE TABLET BY MOUTH EVERY DAY meloxicam 7.5 mg tablet TAKE ONE TABLET BY MOUTH EVERY DAY completed meloxicam 7.5 MG Oral Tablet ALEX ([facility]) Prednisone 20 MG Oral Tablet prednisone 20 mg tablet TAKE THREE TABLETS BY MOUTH EVERY DAY DAYS 1 3 THEN TAKE TWO TABLETS BY MOUTH EVERY DAY DAYS 4 7 THEN TAKE ONE TABLET BY MOUTH EVERY DAY D prednisone 20 mg tablet TAKE THREE TABLE TS BY MOUTH EVERY DAY DAYS 1 3 THEN TAKE TWO TABLETS BY MOUTH EVERY DAY DAYS 4 7 THEN TAKE ONE TABLET BY MOUTH EVERY DAY D completed prednisone 20 MG Oral Tablet ALEX ([facility]) Amoxicillin 875 MG / Clavulanate 125 MG Oral Tablet amoxicillin 875 mg-potassium clavulanate 125 mg tablet TAKE ONE TABLET BY MOUTH TWICE A DAY FOR 14 DAYS amoxicillin 875 mg-potassium clavulanate 125 mg tablet TAKE ONE TABLET BY MOUTH TWICE A DAY FOR 14 DAYS completed amoxicillin 875 MG / clavulanate 125 MG Oral Tablet ALEX ([facility]) Acetaminophen 325 MG Oral Tablet acetami nophen 325 mg tablet TAKE ONE TABLET BY MOUTH EVERY 6 HOURS NEEDED FOR PAIN acetaminophen 325 mg tablet TAKE ONE TABLET BY MOUTH EVERY 6 HOURS NEEDED FOR PAIN completed acetaminophen 325 MG Oral Tablet ALEX ([facility]) gabapentin 300 MG Oral Capsule gabapenti n 300 mg capsule TAKE ONE CAPSULE BY MOUTH AT BEDTIME FOR 7 DAYS THEN TAKE ONE CAPSULE BY MOUTH TWICE A DAY FOR 7 DAYS THEN TAKE ONE CAPSULE BY MOUTH THREE gabapentin 300 mg capsule TAKE ONE CAPSULE BY MOUTH AT BEDTIME FOR 7 DAYS THEN TAKE ONE CAPSULE BY MOUTH TWICE A DAY FOR 7 DAYS THEN TAKE ONE CAPSULE BY MOUTH THREE completed gabapentin 300 MG Oral Capsule ALEX ([facility]) Sulfamethoxazole 800 MG / Trimethoprim 1 60 MG Oral Tablet sulfamethoxazole 800 mg-trimethoprim 160 mg tablet TAKE 1 TABLET BY MOUTH TWO TIMES A DAY FOR 7 DAYS sulfamethoxazole 800 mg-trimethoprim 160 mg tablet TAKE 1 TABLET BY MOUTH TWO TIMES A DAY FOR 7 DAYS completed sulfamethoxazole 800 MG / trimethoprim 160 MG Oral Tablet ALEX ([facility]) tizanidine 2 MG Oral Tablet tizanidine 2 mg tablet TAKE ONE TABLET BY MOUTH EVERY 8 HOURS NEEDED FOR SPASMS tizanidine 2 mg tablet TAKE ONE TABLET B Y MOUTH EVERY 8 HOURS NEEDED FOR SPASMS completed tizanidine 2 MG Oral Tablet ALEX ([facility]) Amoxicillin 875 MG / Clavulanate 125 MG Oral Tablet amoxicillin 875 mg-potassium clavulanate 125 mg tablet TAKE ONE TABLET BY MOUTH TWICE A DAY FOR 14 DAYS amoxicillin 875 mg-potassium clavulanate 125 mg tablet TAKE ONE TABLET BY MOUTH TWICE A DAY FOR 14 DAYS completed amoxicillin 875 MG / clavulanate 125 MG Oral Tablet ALEX ([facility]) Escitalopram 10 MG Oral Tablet escitalop ac 10 mg tablet TAKE ONE TABLET BY MOUTH EVERY DAY escitalopram 10 mg tablet TAKE ONE TABLET BY MOUTH EVERY DAY completed escitalopram 1 0 MG Oral Tablet ALEX ([facility]) Fluzone Quad [id number] 60 mcg (15 mcg x 4)/0.5 mL intramuscular susp. INJECT DIRECTED [id number] completed influe nza A virus A/[facility] Mykel (H3N2) antigen 0.03 MG/ML / influenza A virus A/ (H1N1) antigen 0.03 MG/ML / influenza B virus B/[facility] antigen 0.03 MG/ML / influenza B virus B/Val antigen 0.03 MG/ML Injectable Suspension ALEX ([facility]) Furosemide 20 MG Oral Tablet furosemide 20 mg tablet TAKE ONE TABLET BY MOUTH EVERY DAY furosemide 20 mg tablet TAKE ONE TABLET BY MOUTH EVERY DAY completed furosemide 20 MG Oral Tablet IMPERIAL ([facility]) Sulfamethoxazole 800 MG / Trimethoprim 1 60 MG Oral Tablet sulfamethoxazole 800 mg-trimethoprim 160 mg tablet TAKE 1 TABLET BY MOUTH TWO TIMES A DAY FOR 7 DAYS sulfamethoxazole 800 mg-trimethoprim 160 mg tablet TAKE 1 TABLET BY MOUTH TWO TIMES A DAY FOR 7 DAYS completed sulfamethoxazole 800 MG / trimethoprim 160 MG Oral Tablet IMPERIAL ([facility]) Furosemide 20 MG Oral Tablet furosemide 20 mg tablet TAKE ONE TABLET BY MOUTH EVERY DAY furosemide 20 mg tablet TAKE ONE TABLET BY MOUTH EVERY DAY completed furosemide 20 MG Oral Tablet IMPERIAL ([facility]) Amoxicillin 875 MG / Clavulanate 125 MG Oral Tablet amoxicillin 875 mg-potassium clavulanate 125 mg tablet TAKE ONE TABLET BY MOUTH TWICE A DAY FOR 14 DAYS amoxicillin 875 mg-potassium clavulanate 125 mg tablet TAKE ONE TABLET BY MOUTH TWICE A DAY FOR 14 DAYS completed amoxicillin 875 MG / clavulanate 125 MG Oral Tablet IMPERIAL ([facility]) methylprednisolone 4 mg tablets in a dos e pack TAKE DOSE BRIJESH DIRECTED ON SHEET [id number] completed methylpre dnisolone 4 mg tablets in a dose pack IMPERIAL ([facility]) Amoxicillin 875 MG / Clavulanate 125 MG Oral Tablet amoxicillin 875 mg-potassium clavulanate 125 mg tablet TAKE ONE TABLET BY MOUTH TWICE A DAY FOR 14 DAYS amoxicillin 875 mg-potassium clavulanate 125 mg tablet TAKE ONE TABLET BY MOUTH TWICE A DAY FOR 14 DAYS completed amoxicillin 875 MG / clavulanate 125 MG Oral Tablet IMPERIAL ([facility]) meloxicam 7.5 MG Oral Tablet meloxicam 7 .5 mg tablet TAKE ONE TABLET BY MOUTH EVERY DAY meloxicam 7.5 mg tablet TAKE ONE TABLET BY MOUTH EVERY DAY completed meloxicam 7.5 MG Oral Tablet IMPERIAL ([facility]) gabapentin 300 MG Oral Capsule gabapenti n 300 mg capsule TAKE ONE CAPSULE BY MOUTH AT BEDTIME FOR 7 DAYS THEN TAKE ONE CAPSULE BY MOUTH TWICE A DAY FOR 7 DAYS THEN TAKE ONE CAPSULE BY MOUTH THREE gabapentin 300 mg capsule TAKE ONE CAPSULE BY MOUTH AT BEDTIME FOR 7 DAYS THEN TAKE ONE CAPSULE BY MOUTH TWICE A DAY FOR 7 DAYS THEN TAKE ONE CAPSULE BY MOUTH THREE completed gabapentin 300 MG Oral Capsule ALEX ([facility]) gabapentin 300 MG Oral Capsule gabapenti n 300 mg capsule TAKE ONE CAPSULE BY MOUTH AT BEDTIME FOR 7 DAYS THEN TAKE ONE CAPSULE BY MOUTH TWICE A DAY FOR 7 DAYS THEN TAKE ONE CAPSULE BY MOUTH THREE gabapentin 300 mg capsule TAKE ONE CAPSULE BY MOUTH AT BEDTIME FOR 7 DAYS THEN TAKE ONE CAPSULE BY MOUTH TWICE A DAY FOR 7 DAYS THEN TAKE ONE CAPSULE BY MOUTH THREE completed gabapentin 300 MG Oral Capsule ALEX ([facility]) Tobramycin 3 MG/ML Ophthalmic Solution t obramycin 0.3 % eye drops INSTILL 2 DROPS INTO AFFECTED EYE S THREE TIMES A DAY FOR 7 DAYS tobramycin 0.3 % eye drops INSTILL 2 DROPS INTO AFFECTED EYE S THREE TIMES A DAY FOR 7 DAYS completed tobramycin 3 MG/ML Ophtha lmic Solution IMPERIAL ([facility]) Tobramycin 3 MG/ML Ophthalmic Solution t obramycin 0.3 % eye drops INSTILL 2 DROPS INTO AFFECTED EYE S THREE TIMES A DAY FOR 7 DAYS tobramycin 0.3 % eye drops INSTILL 2 DROPS INTO AFFECTED EYE S THREE TIMES A DAY FOR 7 DAYS completed tobramycin 3 MG/ML Ophtha lmic Solution IMPERIAL ([facility]) terbinafine 250 MG Oral Tablet terbinafi ne HCl 250 mg tablet TAKE 1 TABLET BY MOUTH ONCE DAILY terbinafine HCl 250 mg tablet TAKE 1 TAB LET BY MOUTH ONCE DAILY completed terbinafine 250 MG Oral Tablet IMPERIAL ([facility]) methylprednisolone 4 mg tablets in a dos e pack TAKE DOSE BRIJESH DIRECTED ON SHEET [id number] completed methylpre dnisolone 4 mg tablets in a dose pack ALEX ([facility]) methylprednisolone 4 mg tablets in a dos e pack TAKE DOSE BRIJESH DIRECTED ON SHEET [id number] completed methylpre dnisolone 4 mg tablets in a dose pack ALEX ([facility]) methylprednisolone 4 mg tablets in a dos e pack TAKE DOSE BRIJESH DIRECTED ON SHEET [id number] completed methylpre dnisolone 4 mg tablets in a dose pack IMPERIAL ([facility]) Fluzone Quad 60 mcg (15 mcg x 4)/0.5 mL intramuscular susp. INJECT DIRECTED [id number] completed influe nza A virus A/[facility] (H3N2) antigen 0.03 MG/ML / influenza A virus A/ (H1N1) antigen 0.03 MG/ML / influenza B virus B/[facility] antigen 0.03 MG/ML / influenza B virus B/[place] antigen 0.03 MG/ML Injectable Suspension ALEX ([facility]) Tobramycin 3 MG/ML Ophthalmic Solution t obramycin 0.3 % eye drops INSTILL 2 DROPS INTO AFFECTED EYE S THREE TIMES A DAY FOR 7 DAYS tobramycin 0.3 % eye drops INSTILL 2 DROPS INTO AFFECTED EYE S THREE TIMES A DAY FOR 7 DAYS completed tobramycin 3 MG/ML Ophtha lmic Solution ALEX ([facility]) meloxicam 7.5 MG Oral Tablet meloxicam 7 .5 mg tablet TAKE ONE TABLET BY MOUTH EVERY DAY meloxicam 7.5 mg tablet TAKE ONE TABLET BY MOUTH EVERY DAY completed meloxicam 7.5 MG Oral Tablet IMPERIAL ([facility]) Naproxen 500 MG Oral Tablet naproxen 500 mg tablet TAKE ONE TABLET BY MOUTH EVERY 12 HOURS FOR 7 DAYS naproxen 500 mg tablet TAKE ONE TABLET B Y MOUTH EVERY 12 HOURS FOR 7 DAYS completed na proxen 500 MG Oral Tablet ALEX ([facility]) Ibuprofen 600 MG Oral Tablet ibuprofen 6 00 mg tablet TAKE ONE TABLET BY MOUTH TWICE A DAY ibuprofen 600 mg tablet TAKE ONE TABLET BY MOUTH TWICE A DAY completed ibuprofen 600 MG Ora l Tablet IMPERIAL ([facility]) Fluzone Quad 60 mcg (15 mcg x 4)/0.5 mL intramuscular susp. INJECT DIRECTED [id number] completed Fluzon e Quad 60 mcg (15 mcg x 4)/0.5 mL intramuscular susp. ALEX ([facility]) tizanidine 2 MG Oral Tablet tizanidine 2 mg tablet TAKE ONE TABLET BY MOUTH EVERY 8 HOURS NEEDED FOR SPASMS tizanidine 2 mg tablet TAKE ONE TABLET B Y MOUTH EVERY 8 HOURS NEEDED FOR SPASMS completed tizanidine 2 MG Oral Tablet ALEX ([facility]) doxycycline hyclate 100 MG Oral Tablet d oxycycline hyclate 100 mg tablet TAKE ONE TABLET BY MOUTH TWICE A DAY doxycycline hyclate 100 mg tablet TAKE O NE TABLET BY MOUTH TWICE A DAY completed doxycycline hyclate 100 MG Oral Tablet ALEX ([facility]) Escitalopram 20 MG Oral Tablet escitalopram 20 mg tabl et escitalopram 20 mg tablet completed escitalopram 20 MG Oral Tablet ALEX ([facility]) doxycycline hyclate 100 MG Oral Tablet d oxycycline hyclate 100 mg tablet TAKE ONE TABLET BY MOUTH TWICE A DAY doxycycline hyclate 100 mg tablet TAKE O NE TABLET BY MOUTH TWICE A DAY completed doxycycline hyclate 100 MG Oral Tablet ALEX ([facility]) Naproxen 500 MG Oral Tablet naproxen 500 mg tablet TAKE ONE TABLET BY MOUTH EVERY 12 HOURS FOR 7 DAYS naproxen 500 mg tablet TAKE ONE TABLET B Y MOUTH EVERY 12 HOURS FOR 7 DAYS completed na proxen 500 MG Oral Tablet IMPERIAL ([facility]) doxycycline hyclate 100 MG Oral Tablet d oxycycline hyclate 100 mg tablet TAKE ONE TABLET BY MOUTH TWICE A DAY doxycycline hyclate 100 mg tablet TAKE O NE TABLET BY MOUTH TWICE A DAY completed doxycycline hyclate 100 MG Oral Tablet ALEX ([facility]) Amoxicillin 875 MG / Clavulanate 125 MG Oral Tablet amoxicillin 875 mg-potassium clavulanate 125 mg tablet TAKE ONE TABLET BY MOUTH TWICE A DAY FOR 14 DAYS amoxicillin 875 mg-potassium clavulanate 125 mg tablet TAKE ONE TABLET BY MOUTH TWICE A DAY FOR 14 DAYS completed amoxicillin 875 MG / clavulanate 125 MG Oral Tablet ALEX ([facility]) Omeprazole 20 MG Delayed Release Oral Ca psule omeprazole 20 mg capsule,delayed release TAKE ONE CAPSULE BY MOUTH EVERY DAY omeprazole 20 mg capsule,delayed release TAKE ONE CAPSULE BY MOUTH EVERY DAY completed omeprazole 20 MG Delayed Release Oral Capsule ALEX ([facility]) meloxicam 7.5 MG Oral Tablet meloxicam 7 .5 mg tablet TAKE ONE TABLET BY MOUTH EVERY DAY meloxicam 7.5 mg tablet TAKE ONE TABLET BY MOUTH EVERY DAY completed meloxicam 7.5 MG Oral Tablet ALEX ([facility]) Ibuprofen 600 MG Oral Tablet ibuprofen 6 00 mg tablet TAKE ONE TABLET BY MOUTH TWICE A DAY ibuprofen 600 mg tablet TAKE ONE TABLET BY MOUTH TWICE A DAY completed ibuprofen 600 MG Ora l Tablet ALEX ([facility]) Omeprazole 20 MG Delayed Release Oral Ca psule omeprazole 20 mg capsule,delayed release TAKE ONE CAPSULE BY MOUTH EVERY DAY omeprazole 20 mg capsule,delayed release TAKE ONE CAPSULE BY MOUTH EVERY DAY completed omeprazole 20 MG Delayed Release Oral Capsule IMPERIAL ([facility]) Fluzone Quad 60 mcg (15 mcg x 4)/0.5 mL intramuscular susp. INJECT DIRECTED [id number] completed Fluzon e Quad 60 mcg (15 mcg x 4)/0.5 mL intramuscular susp. ALEX ([facility]) gabapentin 300 MG Oral Capsule gabapenti n 300 mg capsule TAKE ONE CAPSULE BY MOUTH AT BEDTIME FOR 7 DAYS THEN TAKE ONE CAPSULE BY MOUTH TWICE A DAY FOR 7 DAYS THEN TAKE ONE CAPSULE BY MOUTH THREE gabapentin 300 mg capsule TAKE ONE CAPSULE BY MOUTH AT BEDTIME FOR 7 DAYS THEN TAKE ONE CAPSULE BY MOUTH TWICE A DAY FOR 7 DAYS THEN TAKE ONE CAPSULE BY MOUTH THREE completed gabapentin 300 MG Oral Capsule IMPERIAL ([facility]) Tobramycin 3 MG/ML Ophthalmic Solution t obramycin 0.3 % eye drops INSTILL 2 DROPS INTO AFFECTED EYE S THREE TIMES A DAY FOR 7 DAYS tobramycin 0.3 % eye drops INSTILL 2 DROPS INTO AFFECTED EYE S THREE TIMES A DAY FOR 7 DAYS completed tobramycin 3 MG/ML Ophtha lmic Solution [facility]) methylprednisolone 4 mg tablets in a dos e pack TAKE DOSE BRIJESH DIRECTED ON SHEET [id number] completed methylpre dnisolone 4 mg tablets in a dose pack IMPERIAL ([facility]) Escitalopram 20 MG Oral Tablet escitalopram 20 mg tabl et escitalopram 20 mg tablet completed escitalopram 20 MG Oral Tablet IMPERIAL ([facility]) Ibuprofen 600 MG Oral Tablet ibuprofen 6 00 mg tablet TAKE ONE TABLET BY MOUTH TWICE A DAY ibuprofen 600 mg tablet TAKE ONE TABLET BY MOUTH TWICE A DAY completed ibuprofen 600 MG Ora l Tablet [facility]) methylprednisolone 4 mg tablets in a dos e pack TAKE DOSE BRIJESH DIRECTED ON SHEET [id number] completed methylpre dnisolone 4 mg tablets in a dose pack IMPERIAL ([facility]) Amoxicillin 875 MG / Clavulanate 125 MG Oral Tablet amoxicillin 875 mg-potassium clavulanate 125 mg tablet TAKE ONE TABLET BY MOUTH TWICE A DAY FOR 14 DAYS amoxicillin 875 mg-potassium clavulanate 125 mg tablet TAKE ONE TABLET BY MOUTH TWICE A DAY FOR 14 DAYS completed amoxicillin 875 MG / clavulanate 125 MG Oral Tablet ALEX ([facility]) Acetaminophen 325 MG Oral Tablet acetami nophen 325 mg tablet TAKE ONE TABLET BY MOUTH EVERY 6 HOURS NEEDED FOR PAIN acetaminophen 325 mg tablet TAKE ONE TABLET BY MOUTH EVERY 6 HOURS NEEDED FOR PAIN completed acetaminophen 325 MG Oral Tablet ALEX ([facility]) terbinafine 250 MG Oral Tablet terbinafi ne HCl 250 mg tablet TAKE 1 TABLET BY MOUTH ONCE DAILY terbinafine HCl 250 mg tablet TAKE 1 TAB LET BY MOUTH ONCE DAILY completed terbinafine 250 MG Oral Tablet IMPERIAL ([facility]) Prednisone 20 MG Oral Tablet prednisone 20 mg tablet TAKE THREE TABLETS BY MOUTH EVERY DAY DAYS 1 3 THEN TAKE TWO TABLETS BY MOUTH EVERY DAY DAYS 4 7 THEN TAKE ONE TABLET BY MOUTH EVERY DAY D prednisone 20 mg tablet TAKE THREE TABLE TS BY MOUTH EVERY DAY DAYS 1 3 THEN TAKE TWO TABLETS BY MOUTH EVERY DAY DAYS 4 7 THEN TAKE ONE TABLET BY MOUTH EVERY DAY D completed prednisone 20 MG Oral Tablet ALEX ([facility]) Amoxicillin 875 MG / Clavulanate 125 MG Oral Tablet amoxicillin 875 mg-potassium clavulanate 125 mg tablet TAKE ONE TABLET BY MOUTH TWICE A DAY FOR 14 DAYS amoxicillin 875 mg-potassium clavulanate 125 mg tablet TAKE ONE TABLET BY MOUTH TWICE A DAY FOR 14 DAYS completed amoxicillin 875 MG / clavulanate 125 MG Oral Tablet ALEX ([facility]) tizanidine 2 MG Oral Tablet tizanidine 2 mg tablet TAKE ONE TABLET BY MOUTH EVERY 8 HOURS NEEDED FOR SPASMS tizanidine 2 mg tablet TAKE ONE TABLET B Y MOUTH EVERY 8 HOURS NEEDED FOR SPASMS completed tizanidine 2 MG Oral Tablet ALEX ([facility]) Naproxen 500 MG Oral Tablet naproxen 500 mg tablet TAKE ONE TABLET BY MOUTH EVERY 12 HOURS FOR 7 DAYS naproxen 500 mg tablet TAKE ONE TABLET B Y MOUTH EVERY 12 HOURS FOR 7 DAYS completed na proxen 500 MG Oral Tablet ALEX ([facility]) Fluzone Quad [id number] 60 mcg (15 mcg x 4)/0.5 mL intramuscular susp. INJECT DIRECTED [id number] completed influe nza A virus A/[facility] (H3N2) antigen 0.03 MG/ML / influenza A virus A/ (H1N1) antigen 0.03 MG/ML / influenza B virus B/[facility] antigen 0.03 MG/ML / influenza B virus B/Val antigen 0.03 MG/ML Injectable Suspension ALEX ([facility]) Acetaminophen 325 MG Oral Tablet acetami nophen 325 mg tablet TAKE ONE TABLET BY MOUTH EVERY 6 HOURS NEEDED FOR PAIN acetaminophen 325 mg tablet TAKE ONE TABLET BY MOUTH EVERY 6 HOURS NEEDED FOR PAIN completed acetaminophen 325 MG Oral Tablet ALEX ([facility]) Acetaminophen 325 MG Oral Tablet acetami nophen 325 mg tablet TAKE ONE TABLET BY MOUTH EVERY 6 HOURS NEEDED FOR PAIN acetaminophen 325 mg tablet TAKE ONE TABLET BY MOUTH EVERY 6 HOURS NEEDED FOR PAIN completed acetaminophen 325 MG Oral Tablet ALEX ([facility]) tizanidine 2 MG Oral Tablet tizanidine 2 mg tablet TAKE ONE TABLET BY MOUTH EVERY 8 HOURS NEEDED FOR SPASMS tizanidine 2 mg tablet TAKE ONE TABLET B Y MOUTH EVERY 8 HOURS NEEDED FOR SPASMS completed tizanidine 2 MG Oral Tablet ALEX ([facility]) doxycycline hyclate 100 MG Oral Tablet d oxycycline hyclate 100 mg tablet TAKE ONE TABLET BY MOUTH TWICE A DAY doxycycline hyclate 100 mg tablet TAKE O NE TABLET BY MOUTH TWICE A DAY completed doxycycline hyclate 100 MG Oral Tablet ALEX ([facility]) Tobramycin 3 MG/ML Ophthalmic Solution t obramycin 0.3 % eye drops INSTILL 2 DROPS INTO AFFECTED EYE S THREE TIMES A DAY FOR 7 DAYS tobramycin 0.3 % eye drops INSTILL 2 DROPS INTO AFFECTED EYE S THREE TIMES A DAY FOR 7 DAYS completed tobramycin 3 MG/ML Ophtha lmic Solution ALEX ([facility]) Prednisone 20 MG Oral Tablet prednisone 20 mg tablet TAKE THREE TABLETS BY MOUTH EVERY DAY DAYS 1 3 THEN TAKE TWO TABLETS BY MOUTH EVERY DAY DAYS 4 7 THEN TAKE ONE TABLET BY MOUTH EVERY DAY D prednisone 20 mg tablet TAKE THREE TABLE TS BY MOUTH EVERY DAY DAYS 1 3 THEN TAKE TWO TABLETS BY MOUTH EVERY DAY DAYS 4 7 THEN TAKE ONE TABLET BY MOUTH EVERY DAY D completed prednisone 20 MG Oral Tablet ALEX ([facility]) methylprednisolone 4 mg tablets in a dos e pack TAKE DOSE BRIJESH DIRECTED ON SHEET [id number] completed methylpre dnisolone 4 mg tablets in a dose pack ALEX ([facility]) gabapentin 300 MG Oral Capsule gabapenti n 300 mg capsule TAKE ONE CAPSULE BY MOUTH AT BEDTIME FOR 7 DAYS THEN TAKE ONE CAPSULE BY MOUTH TWICE A DAY FOR 7 DAYS THEN TAKE ONE CAPSULE BY MOUTH THREE gabapentin 300 mg capsule TAKE ONE CAPSULE BY MOUTH AT BEDTIME FOR 7 DAYS THEN TAKE ONE CAPSULE BY MOUTH TWICE A DAY FOR 7 DAYS THEN TAKE ONE CAPSULE BY MOUTH THREE completed gabapentin 300 MG Oral Capsule ALEX ([facility]) Acetaminophen 325 MG Oral Tablet acetami nophen 325 mg tablet TAKE ONE TABLET BY MOUTH EVERY 6 HOURS NEEDED FOR PAIN acetaminophen 325 mg tablet TAKE ONE TABLET BY MOUTH EVERY 6 HOURS NEEDED FOR PAIN completed acetaminophen 325 MG Oral Tablet IMPERIAL ([facility]) Escitalopram 10 MG Oral Tablet escitalop ac 10 mg tablet TAKE ONE TABLET BY MOUTH EVERY DAY escitalopram 10 mg tablet TAKE ONE TABLET BY MOUTH EVERY DAY completed escitalopram 1 0 MG Oral Tablet IMPERIAL ([facility]) sildenafil 100 MG Oral Tablet sildenafil 100 mg tablet Take 1 tablet every day by oral route as needed. sildenafil 100 mg tablet Take 1 tablet e very day by oral route as needed. 1 completed sildenafil 100 MG Oral Tablet IMPERIAL ([facility]) meloxicam 7.5 MG Oral Tablet meloxicam 7 .5 mg tablet TAKE ONE TABLET BY MOUTH EVERY DAY meloxicam 7.5 mg tablet TAKE ONE TABLET BY MOUTH EVERY DAY completed meloxicam 7.5 MG Oral Tablet IMPERIAL ([facility]) Furosemide 20 MG Oral Tablet furosemide 20 mg tablet TAKE ONE TABLET BY MOUTH EVERY DAY furosemide 20 mg tablet TAKE ONE TABLET BY MOUTH EVERY DAY completed furosemide 20 MG Oral Tablet IMPERIAL ([facility]) tizanidine 2 MG Oral Tablet tizanidine 2 mg tablet TAKE ONE TABLET BY MOUTH EVERY 8 HOURS NEEDED FOR SPASMS tizanidine 2 mg tablet TAKE ONE TABLET B Y MOUTH EVERY 8 HOURS NEEDED FOR SPASMS completed tizanidine 2 MG Oral Tablet ALEX ([facility]) Fluzone Quad [id number] 60 mcg (15 mcg x 4)/0.5 mL intramuscular susp. INJECT DIRECTED [id number] completed Fluzon e Quad [id number] 60 mcg (15 mcg x 4)/0.5 mL intramuscular susp. ALEX ([facility]) terbinafine 250 MG Oral Tablet terbinafi ne HCl 250 mg tablet TAKE 1 TABLET BY MOUTH ONCE DAILY terbinafine HCl 250 mg tablet TAKE 1 TAB LET BY MOUTH ONCE DAILY completed terbinafine 250 MG Oral Tablet ALEX ([facility]) Furosemide 20 MG Oral Tablet furosemide 20 mg tablet TAKE ONE TABLET BY MOUTH EVERY DAY furosemide 20 mg tablet TAKE ONE TABLET BY MOUTH EVERY DAY completed furosemide 20 MG Oral Tablet ALEX ([facility]) tizanidine 2 MG Oral Tablet tizanidine 2 mg tablet TAKE ONE TABLET BY MOUTH EVERY 8 HOURS NEEDED FOR SPASMS tizanidine 2 mg tablet TAKE ONE TABLET B Y MOUTH EVERY 8 HOURS NEEDED FOR SPASMS completed tizanidine 2 MG Oral Tablet IMPERIAL ([facility]) methylprednisolone 4 mg tablets in a dos e pack TAKE DOSE BRIJESH DIRECTED ON SHEET [id number] completed methylpre dnisolone 4 mg tablets in a dose pack IMPERIAL ([facility]) meloxicam 7.5 MG Oral Tablet meloxicam 7 .5 mg tablet TAKE ONE TABLET BY MOUTH EVERY DAY meloxicam 7.5 mg tablet TAKE ONE TABLET BY MOUTH EVERY DAY completed meloxicam 7.5 MG Oral Tablet IMPERIAL ([facility]) Amoxicillin 875 MG / Clavulanate 125 MG Oral Tablet amoxicillin 875 mg-potassium clavulanate 125 mg tablet TAKE ONE TABLET BY MOUTH TWICE A DAY FOR 14 DAYS amoxicillin 875 mg-potassium clavulanate 125 mg tablet TAKE ONE TABLET BY MOUTH TWICE A DAY FOR 14 DAYS completed amoxicillin 875 MG / clavulanate 125 MG Oral Tablet ALEX ([facility]) gabapentin 300 MG Oral Capsule gabapenti n 300 mg capsule TAKE ONE CAPSULE BY MOUTH AT BEDTIME FOR 7 DAYS THEN TAKE ONE CAPSULE BY MOUTH TWICE A DAY FOR 7 DAYS THEN TAKE ONE CAPSULE BY MOUTH THREE gabapentin 300 mg capsule TAKE ONE CAPSULE BY MOUTH AT BEDTIME FOR 7 DAYS THEN TAKE ONE CAPSULE BY MOUTH TWICE A DAY FOR 7 DAYS THEN TAKE ONE CAPSULE BY MOUTH THREE completed gabapentin 300 MG Oral Capsule ALEX ([facility]) Naproxen 500 MG Oral Tablet naproxen 500 mg tablet TAKE ONE TABLET BY MOUTH EVERY 12 HOURS FOR 7 DAYS naproxen 500 mg tablet TAKE ONE TABLET B Y MOUTH EVERY 12 HOURS FOR 7 DAYS completed na proxen 500 MG Oral Tablet ALEX ([facility]) Naproxen 500 MG Oral Tablet naproxen 500 mg tablet TAKE ONE TABLET BY MOUTH EVERY 12 HOURS FOR 7 DAYS naproxen 500 mg tablet TAKE ONE TABLET B Y MOUTH EVERY 12 HOURS FOR 7 DAYS completed na proxen 500 MG Oral Tablet ALEX ([facility]) Sulfamethoxazole 800 MG / Trimethoprim 1 60 MG Oral Tablet sulfamethoxazole 800 mg-trimethoprim 160 mg tablet TAKE 1 TABLET BY MOUTH TWO TIMES A DAY FOR 7 DAYS sulfamethoxazole 800 mg-trimethoprim 160 mg tablet TAKE 1 TABLET BY MOUTH TWO TIMES A DAY FOR 7 DAYS completed sulfamethoxazole 800 MG / trimethoprim 160 MG Oral Tablet ALEX ([facility]) Fluzone Quad [id number] 60 mcg (15 mcg x 4)/0.5 mL intramuscular susp. INJECT DIRECTED [id number] completed influe nza A virus A/[facility] (H3N2) antigen 0.03 MG/ML / influenza A virus A/ (H1N1) antigen 0.03 MG/ML / influenza B virus B/[facility] antigen 0.03 MG/ML / influenza B virus B/[place] antigen 0.03 MG/ML Injectable Suspension ALEX ([facility]) Amoxicillin 875 MG / Clavulanate 125 MG Oral Tablet amoxicillin 875 mg-potassium clavulanate 125 mg tablet TAKE ONE TABLET BY MOUTH TWICE A DAY FOR 14 DAYS amoxicillin 875 mg-potassium clavulanate 125 mg tablet TAKE ONE TABLET BY MOUTH TWICE A DAY FOR 14 DAYS completed amoxicillin 875 MG / clavulanate 125 MG Oral Tablet ALEX ([facility]) Sulfamethoxazole 800 MG / Trimethoprim 1 60 MG Oral Tablet sulfamethoxazole 800 mg-trimethoprim 160 mg tablet TAKE 1 TABLET BY MOUTH TWO TIMES A DAY FOR 7 DAYS sulfamethoxazole 800 mg-trimethoprim 160 mg tablet TAKE 1 TABLET BY MOUTH TWO TIMES A DAY FOR 7 DAYS completed sulfamethoxazole 800 MG / trimethoprim 160 MG Oral Tablet ALEX ([facility]) Escitalopram 10 MG Oral Tablet escitalop ac 10 mg tablet TAKE ONE TABLET BY MOUTH EVERY DAY escitalopram 10 mg tablet TAKE ONE TABLET BY MOUTH EVERY DAY completed escitalopram 1 0 MG Oral Tablet ALEX ([facility]) Tobramycin 3 MG/ML Ophthalmic Solution t obramycin 0.3 % eye drops INSTILL 2 DROPS INTO AFFECTED EYE S THREE TIMES A DAY FOR 7 DAYS tobramycin 0.3 % eye drops INSTILL 2 DROPS INTO AFFECTED EYE S THREE TIMES A DAY FOR 7 DAYS completed tobramycin 3 MG/ML Ophtha lmic Solution ALEX ([facility]) Amoxicillin 875 MG / Clavulanate 125 MG Oral Tablet amoxicillin 875 mg-potassium clavulanate 125 mg tablet TAKE ONE TABLET BY MOUTH TWICE A DAY FOR 14 DAYS amoxicillin 875 mg-potassium clavulanate 125 mg tablet TAKE ONE TABLET BY MOUTH TWICE A DAY FOR 14 DAYS completed amoxicillin 875 MG / clavulanate 125 MG Oral Tablet IMPERIAL ([facility]) Fluzone Quad 60 mcg (15 mcg x 4)/0.5 mL intramuscular susp. INJECT DIRECTED [id number] completed influe nza A virus A/ (H3N2) antigen 0.03 MG/ML / influenza A virus A/ (H1N1) antigen 0.03 MG/ML / influenza B virus B/[facility] antigen 0.03 MG/ML / influenza B virus B/Val antigen 0.03 MG/ML Injectable Suspension IMPERIAL ([facility]) gabapentin 300 MG Oral Capsule gabapenti n 300 mg capsule TAKE ONE CAPSULE BY MOUTH AT BEDTIME FOR 7 DAYS THEN TAKE ONE CAPSULE BY MOUTH TWICE A DAY FOR 7 DAYS THEN TAKE ONE CAPSULE BY MOUTH THREE gabapentin 300 mg capsule TAKE ONE CAPSULE BY MOUTH AT BEDTIME FOR 7 DAYS THEN TAKE ONE CAPSULE BY MOUTH TWICE A DAY FOR 7 DAYS THEN TAKE ONE CAPSULE BY MOUTH THREE completed gabapentin 300 MG Oral Capsule ALEX ([facility]) Ibuprofen 600 MG Oral Tablet ibuprofen 6 00 mg tablet TAKE ONE TABLET BY MOUTH TWICE A DAY ibuprofen 600 mg tablet TAKE ONE TABLET BY MOUTH TWICE A DAY completed ibuprofen 600 MG Ora l Tablet IMPERIAL ([facility]) doxycycline hyclate 100 MG Oral Tablet d oxycycline hyclate 100 mg tablet TAKE ONE TABLET BY MOUTH TWICE A DAY doxycycline hyclate 100 mg tablet TAKE O NE TABLET BY MOUTH TWICE A DAY completed doxycycline hyclate 100 MG Oral Tablet ALEX ([facility]) tizanidine 2 MG Oral Tablet tizanidine 2 mg tablet TAKE ONE TABLET BY MOUTH EVERY 8 HOURS NEEDED FOR SPASMS tizanidine 2 mg tablet TAKE ONE TABLET B Y MOUTH EVERY 8 HOURS NEEDED FOR SPASMS completed tizanidine 2 MG Oral Tablet ALEX ([facility]) Tobramycin 3 MG/ML Ophthalmic Solution t obramycin 0.3 % eye drops INSTILL 2 DROPS INTO AFFECTED EYE S THREE TIMES A DAY FOR 7 DAYS tobramycin 0.3 % eye drops INSTILL 2 DROPS INTO AFFECTED EYE S THREE TIMES A DAY FOR 7 DAYS completed tobramycin 3 MG/ML Ophtha lmic Solution ALEX ([facility]) Ibuprofen 600 MG Oral Tablet ibuprofen 6 00 mg tablet TAKE ONE TABLET BY MOUTH TWICE A DAY ibuprofen 600 mg tablet TAKE ONE TABLET BY MOUTH TWICE A DAY completed ibuprofen 600 MG Ora l Tablet IMPERIAL ([facility]) gabapentin 300 MG Oral Capsule gabapenti n 300 mg capsule TAKE ONE CAPSULE BY MOUTH AT BEDTIME FOR 7 DAYS THEN TAKE ONE CAPSULE BY MOUTH TWICE A DAY FOR 7 DAYS THEN TAKE ONE CAPSULE BY MOUTH THREE gabapentin 300 mg capsule TAKE ONE CAPSULE BY MOUTH AT BEDTIME FOR 7 DAYS THEN TAKE ONE CAPSULE BY MOUTH TWICE A DAY FOR 7 DAYS THEN TAKE ONE CAPSULE BY MOUTH THREE completed gabapentin 300 MG Oral Capsule IMPERIAL ([facility]) Escitalopram 10 MG Oral Tablet escitalop ac 10 mg tablet TAKE ONE TABLET BY MOUTH EVERY DAY escitalopram 10 mg tablet TAKE ONE TABLET BY MOUTH EVERY DAY completed escitalopram 1 0 MG Oral Tablet IMPERIAL ([facility]) Naproxen 500 MG Oral Tablet naproxen 500 mg tablet TAKE ONE TABLET BY MOUTH EVERY 12 HOURS FOR 7 DAYS naproxen 500 mg tablet TAKE ONE TABLET B Y MOUTH EVERY 12 HOURS FOR 7 DAYS completed na proxen 500 MG Oral Tablet ALEX ([facility]) meloxicam 7.5 MG Oral Tablet meloxicam 7 .5 mg tablet TAKE ONE TABLET BY MOUTH EVERY DAY meloxicam 7.5 mg tablet TAKE ONE TABLET BY MOUTH EVERY DAY completed meloxicam 7.5 MG Oral Tablet IMPERIAL ([facility]) Escitalopram 20 MG Oral Tablet escitalopram 20 mg tabl et escitalopram 20 mg tablet completed escitalopram 20 MG Oral Tablet IMPERIAL ([facility]) meloxicam 7.5 MG Oral Tablet meloxicam 7 .5 mg tablet TAKE ONE TABLET BY MOUTH EVERY DAY meloxicam 7.5 mg tablet TAKE ONE TABLET BY MOUTH EVERY DAY completed meloxicam 7.5 MG Oral Tablet IMPERIAL ([facility]) Ibuprofen 600 MG Oral Tablet ibuprofen 6 00 mg tablet TAKE ONE TABLET BY MOUTH TWICE A DAY ibuprofen 600 mg tablet TAKE ONE TABLET BY MOUTH TWICE A DAY completed ibuprofen 600 MG Ora l Tablet IMPERIAL ([facility]) methylprednisolone 4 mg tablets in a dos e pack TAKE DOSE BRIJESH DIRECTED ON SHEET [id number] completed methylpre dnisolone 4 mg tablets in a dose pack IMPERIAL ([facility]) Furosemide 20 MG Oral Tablet furosemide 20 mg tablet TAKE ONE TABLET BY MOUTH EVERY DAY furosemide 20 mg tablet TAKE ONE TABLET BY MOUTH EVERY DAY completed furosemide 20 MG Oral Tablet IMPERIAL ([facility]) Escitalopram 10 MG Oral Tablet escitalop ac 10 mg tablet TAKE ONE TABLET BY MOUTH EVERY DAY escitalopram 10 mg tablet TAKE ONE TABLET BY MOUTH EVERY DAY completed escitalopram 1 0 MG Oral Tablet IMPERIAL ([facility]) Escitalopram 10 MG Oral Tablet escitalop ac 10 mg tablet TAKE ONE TABLET BY MOUTH EVERY DAY escitalopram 10 mg tablet TAKE ONE TABLET BY MOUTH EVERY DAY completed escitalopram 1 0 MG Oral Tablet IMPERIAL ([facility]) terbinafine 250 MG Oral Tablet terbinafi ne HCl 250 mg tablet TAKE 1 TABLET BY MOUTH ONCE DAILY terbinafine HCl 250 mg tablet TAKE 1 TAB LET BY MOUTH ONCE DAILY completed terbinafine 250 MG Oral Tablet IMPERIAL ([facility]) Omeprazole 20 MG Delayed Release Oral Ca psule omeprazole 20 mg capsule,delayed release TAKE ONE CAPSULE BY MOUTH EVERY DAY omeprazole 20 mg capsule,delayed release TAKE ONE CAPSULE BY MOUTH EVERY DAY completed omeprazole 20 MG Delayed Release Oral Capsule IMPERIAL ([facility]) Furosemide 20 MG Oral Tablet furosemide 20 mg tablet TAKE ONE TABLET BY MOUTH EVERY DAY furosemide 20 mg tablet TAKE ONE TABLET BY MOUTH EVERY DAY completed furosemide 20 MG Oral Tablet IMPERIAL ([facility]) Tobramycin 3 MG/ML Ophthalmic Solution t obramycin 0.3 % eye drops INSTILL 2 DROPS INTO AFFECTED EYE S THREE TIMES A DAY FOR 7 DAYS tobramycin 0.3 % eye drops INSTILL 2 DROPS INTO AFFECTED EYE S THREE TIMES A DAY FOR 7 DAYS completed tobramycin 3 MG/ML Ophtha lmic Solution ALEX ([facility]) Sulfamethoxazole 800 MG / Trimethoprim 1 60 MG Oral Tablet sulfamethoxazole 800 mg-trimethoprim 160 mg tablet TAKE 1 TABLET BY MOUTH TWO TIMES A DAY FOR 7 DAYS sulfamethoxazole 800 mg-trimethoprim 160 mg tablet TAKE 1 TABLET BY MOUTH TWO TIMES A DAY FOR 7 DAYS completed sulfamethoxazole 800 MG / trimethoprim 160 MG Oral Tablet IMPERIAL ([facility]) Escitalopram 20 MG Oral Tablet escitalopram 20 mg tabl et escitalopram 20 mg tablet completed escitalopram 20 MG Oral Tablet IMPERIAL ([facility]) Naproxen 500 MG Oral Tablet naproxen 500 mg tablet TAKE ONE TABLET BY MOUTH EVERY 12 HOURS FOR 7 DAYS naproxen 500 mg tablet TAKE ONE TABLET B Y MOUTH EVERY 12 HOURS FOR 7 DAYS completed na proxen 500 MG Oral Tablet IMPERIAL ([facility]) Fluzone Quad 60 mcg (15 mcg x 4)/0.5 mL intramuscular susp. INJECT DIRECTED [id number] completed Fluzon e Quad 60 mcg (15 mcg x 4)/0.5 mL intramuscular susp. ALEX ([facility]) Prednisone 20 MG Oral Tablet prednisone 20 mg tablet TAKE THREE TABLETS BY MOUTH EVERY DAY DAYS 1 3 THEN TAKE TWO TABLETS BY MOUTH EVERY DAY DAYS 4 7 THEN TAKE ONE TABLET BY MOUTH EVERY DAY D prednisone 20 mg tablet TAKE THREE TABLE TS BY MOUTH EVERY DAY DAYS 1 3 THEN TAKE TWO TABLETS BY MOUTH EVERY DAY DAYS 4 7 THEN TAKE ONE TABLET BY MOUTH EVERY DAY D completed prednisone 20 MG Oral Tablet IMPERIAL ([facility]) methylprednisolone 4 mg tablets in a dos e pack TAKE DOSE BRIJESH DIRECTED ON SHEET [id number] completed methylpre dnisolone 4 mg tablets in a dose pack IMPERIAL ([facility]) Acetaminophen 325 MG Oral Tablet acetami nophen 325 mg tablet TAKE ONE TABLET BY MOUTH EVERY 6 HOURS NEEDED FOR PAIN acetaminophen 325 mg tablet TAKE ONE TABLET BY MOUTH EVERY 6 HOURS NEEDED FOR PAIN completed acetaminophen 325 MG Oral Tablet IMPERIAL ([facility]) tizanidine 2 MG Oral Tablet tizanidine 2 mg tablet TAKE ONE TABLET BY MOUTH EVERY 8 HOURS NEEDED FOR SPASMS tizanidine 2 mg tablet TAKE ONE TABLET B Y MOUTH EVERY 8 HOURS NEEDED FOR SPASMS completed tizanidine 2 MG Oral Tablet IMPERIAL ([facility]) Tobramycin 3 MG/ML Ophthalmic Solution t obramycin 0.3 % eye drops INSTILL 2 DROPS INTO AFFECTED EYE S THREE TIMES A DAY FOR 7 DAYS tobramycin 0.3 % eye drops INSTILL 2 DROPS INTO AFFECTED EYE S THREE TIMES A DAY FOR 7 DAYS completed tobramycin 3 MG/ML Ophtha lmic Solution IMPERIAL ([facility]) Escitalopram 10 MG Oral Tablet escitalop ac 10 mg tablet TAKE ONE TABLET BY MOUTH EVERY DAY escitalopram 10 mg tablet TAKE ONE TABLET BY MOUTH EVERY DAY completed escitalopram 1 0 MG Oral Tablet IMPERIAL ([facility]) Ibuprofen 600 MG Oral Tablet ibuprofen 6 00 mg tablet TAKE ONE TABLET BY MOUTH TWICE A DAY ibuprofen 600 mg tablet TAKE ONE TABLET BY MOUTH TWICE A DAY completed ibuprofen 600 MG Ora l Tablet IMPERIAL ([facility]) Tobramycin 3 MG/ML Ophthalmic Solution t obramycin 0.3 % eye drops INSTILL 2 DROPS INTO AFFECTED EYE S THREE TIMES A DAY FOR 7 DAYS tobramycin 0.3 % eye drops INSTILL 2 DROPS INTO AFFECTED EYE S THREE TIMES A DAY FOR 7 DAYS completed tobramycin 3 MG/ML Ophtha lmic Solution IMPERIAL ([facility]) methylprednisolone 4 mg tablets in a dos e pack TAKE DOSE BRIJESH DIRECTED ON SHEET [id number] completed methylpre dnisolone 4 mg tablets in a dose pack IMPERIAL ([facility]) Escitalopram 10 MG Oral Tablet escitalop ac 10 mg tablet TAKE ONE TABLET BY MOUTH EVERY DAY escitalopram 10 mg tablet TAKE ONE TABLET BY MOUTH EVERY DAY completed escitalopram 1 0 MG Oral Tablet IMPERIAL ([facility]) Ibuprofen 600 MG Oral Tablet ibuprofen 6 00 mg tablet TAKE ONE TABLET BY MOUTH TWICE A DAY ibuprofen 600 mg tablet TAKE ONE TABLET BY MOUTH TWICE A DAY completed ibuprofen 600 MG Ora l Tablet IMPERIAL ([facility]) Escitalopram 10 MG Oral Tablet escitalop ac 10 mg tablet TAKE ONE TABLET BY MOUTH EVERY DAY escitalopram 10 mg tablet TAKE ONE TABLET BY MOUTH EVERY DAY completed escitalopram 1 0 MG Oral Tablet IMPERIAL ([facility]) Prednisone 20 MG Oral Tablet prednisone 20 mg tablet TAKE THREE TABLETS BY MOUTH EVERY DAY DAYS 1 3 THEN TAKE TWO TABLETS BY MOUTH EVERY DAY DAYS 4 7 THEN TAKE ONE TABLET BY MOUTH EVERY DAY D prednisone 20 mg tablet TAKE THREE TABLE TS BY MOUTH EVERY DAY DAYS 1 3 THEN TAKE TWO TABLETS BY MOUTH EVERY DAY DAYS 4 7 THEN TAKE ONE TABLET BY MOUTH EVERY DAY D completed prednisone 20 MG Oral Tablet ALEX ([facility]) Naproxen 500 MG Oral Tablet naproxen 500 mg tablet TAKE ONE TABLET BY MOUTH EVERY 12 HOURS FOR 7 DAYS naproxen 500 mg tablet TAKE ONE TABLET B Y MOUTH EVERY 12 HOURS FOR 7 DAYS completed na proxen 500 MG Oral Tablet ALEX ([facility]) sildenafil 100 MG Oral Tablet sildenafil 100 mg tablet Take 1 tablet every day by oral route as needed. sildenafil 100 mg tablet Take 1 tablet e very day by oral route as needed. 1 completed sildenafil 100 MG Oral Tablet ALEX ([facility]) meloxicam 7.5 MG Oral Tablet meloxicam 7 .5 mg tablet TAKE ONE TABLET BY MOUTH EVERY DAY meloxicam 7.5 mg tablet TAKE ONE TABLET BY MOUTH EVERY DAY completed meloxicam 7.5 MG Oral Tablet ALEX ([facility]) sildenafil 100 MG Oral Tablet sildenafil 100 mg tablet Take 1 tablet every day by oral route as needed. sildenafil 100 mg tablet Take 1 tablet e very day by oral route as needed. 1 completed sildenafil 100 MG Oral Tablet ALEX ([facility]) methylprednisolone 4 mg tablets in a dos e pack TAKE DOSE BRIJESH DIRECTED ON SHEET [id number] completed methylpre dnisolone 4 mg tablets in a dose pack ALEX ([facility]) sildenafil 100 MG Oral Tablet sildenafil 100 mg tablet Take 1 tablet every day by oral route as needed. sildenafil 100 mg tablet Take 1 tablet e very day by oral route as needed. 1 completed sildenafil 100 MG Oral Tablet ALEX ([facility]) methylprednisolone 4 mg tablets in a dos e pack TAKE DOSE BRIJESH DIRECTED ON SHEET [id number] completed methylpre dnisolone 4 mg tablets in a dose pack ALEX ([facility]) Fluzone Quad 60 mcg (15 mcg x 4)/0.5 mL intramuscular susp. INJECT DIRECTED [id number] completed Fluzon e Quad 60 mcg (15 mcg x 4)/0.5 mL intramuscular susp. ALEX ([facility]) tizanidine 2 MG Oral Tablet tizanidine 2 mg tablet TAKE ONE TABLET BY MOUTH EVERY 8 HOURS NEEDED FOR SPASMS tizanidine 2 mg tablet TAKE ONE TABLET B Y MOUTH EVERY 8 HOURS NEEDED FOR SPASMS completed tizanidine 2 MG Oral Tablet ALEX ([facility]) Escitalopram 20 MG Oral Tablet escitalopram 20 mg tabl et escitalopram 20 mg tablet completed escitalopram 20 MG Oral Tablet ALEX ([facility]) Acetaminophen 325 MG Oral Tablet acetami nophen 325 mg tablet TAKE ONE TABLET BY MOUTH EVERY 6 HOURS NEEDED FOR PAIN acetaminophen 325 mg tablet TAKE ONE TABLET BY MOUTH EVERY 6 HOURS NEEDED FOR PAIN completed acetaminophen 325 MG Oral Tablet ALEX ([facility]) sildenafil 100 MG Oral Tablet sildenafil 100 mg tablet Take 1 tablet every day by oral route as needed. sildenafil 100 mg tablet Take 1 tablet e very day by oral route as needed. 1 completed sildenafil 100 MG Oral Tablet IMPERIAL ([facility]) Omeprazole 20 MG Delayed Release Oral Ca psule omeprazole 20 mg capsule,delayed release TAKE ONE CAPSULE BY MOUTH EVERY DAY omeprazole 20 mg capsule,delayed release TAKE ONE CAPSULE BY MOUTH EVERY DAY completed omeprazole 20 MG Delayed Release Oral Capsule ALEX ([facility]) Prednisone 20 MG Oral Tablet prednisone 20 mg tablet TAKE THREE TABLETS BY MOUTH EVERY DAY DAYS 1 3 THEN TAKE TWO TABLETS BY MOUTH EVERY DAY DAYS 4 7 THEN TAKE ONE TABLET BY MOUTH EVERY DAY D prednisone 20 mg tablet TAKE THREE TABLE TS BY MOUTH EVERY DAY DAYS 1 3 THEN TAKE TWO TABLETS BY MOUTH EVERY DAY DAYS 4 7 THEN TAKE ONE TABLET BY MOUTH EVERY DAY D completed prednisone 20 MG Oral Tablet ALEX ([facility]) Amoxicillin 875 MG / Clavulanate 125 MG Oral Tablet amoxicillin 875 mg-potassium clavulanate 125 mg tablet TAKE ONE TABLET BY MOUTH TWICE A DAY FOR 14 DAYS amoxicillin 875 mg-potassium clavulanate 125 mg tablet TAKE ONE TABLET BY MOUTH TWICE A DAY FOR 14 DAYS completed amoxicillin 875 MG / clavulanate 125 MG Oral Tablet ALEX ([facility]) Escitalopram 10 MG Oral Tablet escitalop ac 10 mg tablet TAKE ONE TABLET BY MOUTH EVERY DAY escitalopram 10 mg tablet TAKE ONE TABLET BY MOUTH EVERY DAY completed escitalopram 1 0 MG Oral Tablet ALEX ([facility]) gabapentin 300 MG Oral Capsule gabapenti n 300 mg capsule TAKE ONE CAPSULE BY MOUTH AT BEDTIME FOR 7 DAYS THEN TAKE ONE CAPSULE BY MOUTH TWICE A DAY FOR 7 DAYS THEN TAKE ONE CAPSULE BY MOUTH THREE gabapentin 300 mg capsule TAKE ONE CAPSULE BY MOUTH AT BEDTIME FOR 7 DAYS THEN TAKE ONE CAPSULE BY MOUTH TWICE A DAY FOR 7 DAYS THEN TAKE ONE CAPSULE BY MOUTH THREE completed gabapentin 300 MG Oral Capsule ALEX ([facility]) terbinafine 250 MG Oral Tablet terbinafi ne HCl 250 mg tablet TAKE 1 TABLET BY MOUTH ONCE DAILY terbinafine HCl 250 mg tablet TAKE 1 TAB LET BY MOUTH ONCE DAILY completed terbinafine 250 MG Oral Tablet ALEX ([facility]) gabapentin 300 MG Oral Capsule gabapenti n 300 mg capsule TAKE ONE CAPSULE BY MOUTH AT BEDTIME FOR 7 DAYS THEN TAKE ONE CAPSULE BY MOUTH TWICE A DAY FOR 7 DAYS THEN TAKE ONE CAPSULE BY MOUTH THREE gabapentin 300 mg capsule TAKE ONE CAPSULE BY MOUTH AT BEDTIME FOR 7 DAYS THEN TAKE ONE CAPSULE BY MOUTH TWICE A DAY FOR 7 DAYS THEN TAKE ONE CAPSULE BY MOUTH THREE completed gabapentin 300 MG Oral Capsule IMPERIAL ([facility]) Naproxen 500 MG Oral Tablet naproxen 500 mg tablet TAKE ONE TABLET BY MOUTH EVERY 12 HOURS FOR 7 DAYS naproxen 500 mg tablet TAKE ONE TABLET B Y MOUTH EVERY 12 HOURS FOR 7 DAYS completed na proxen 500 MG Oral Tablet IMPERIAL ([facility]) methylprednisolone 4 mg tablets in a dos e pack TAKE DOSE BRIJESH DIRECTED ON SHEET [id number] completed methylpre dnisolone 4 mg tablets in a dose pack IMPERIAL ([facility]) meloxicam 7.5 MG Oral Tablet meloxicam 7 .5 mg tablet TAKE ONE TABLET BY MOUTH EVERY DAY meloxicam 7.5 mg tablet TAKE ONE TABLET BY MOUTH EVERY DAY completed meloxicam 7.5 MG Oral Tablet IMPERIAL ([facility]) meloxicam 7.5 MG Oral Tablet meloxicam 7 .5 mg tablet TAKE ONE TABLET BY MOUTH EVERY DAY meloxicam 7.5 mg tablet TAKE ONE TABLET BY MOUTH EVERY DAY completed meloxicam 7.5 MG Oral Tablet IMPERIAL ([facility]) Naproxen 500 MG Oral Tablet naproxen 500 mg tablet TAKE ONE TABLET BY MOUTH EVERY 12 HOURS FOR 7 DAYS naproxen 500 mg tablet TAKE ONE TABLET B Y MOUTH EVERY 12 HOURS FOR 7 DAYS completed na proxen 500 MG Oral Tablet IMPERIAL ([facility]) Omeprazole 20 MG Delayed Release Oral Ca psule omeprazole 20 mg capsule,delayed release TAKE ONE CAPSULE BY MOUTH EVERY DAY omeprazole 20 mg capsule,delayed release TAKE ONE CAPSULE BY MOUTH EVERY DAY completed omeprazole 20 MG Delayed Release Oral Capsule IMPERIAL ([facility]) Escitalopram 10 MG Oral Tablet escitalop ac 10 mg tablet TAKE ONE TABLET BY MOUTH EVERY DAY escitalopram 10 mg tablet TAKE ONE TABLET BY MOUTH EVERY DAY completed escitalopram 1 0 MG Oral Tablet IMPERIAL ([facility]) Escitalopram 20 MG Oral Tablet escitalopram 20 mg tabl et escitalopram 20 mg tablet completed escitalopram 20 MG Oral Tablet IMPERIAL ([facility]) Fluzone Quad [id number] 60 mcg (15 mcg x 4)/0.5 mL intramuscular susp. INJECT DIRECTED [id number] completed influe nza A virus A/[facility] (H3N2) antigen 0.03 MG/ML / influenza A virus A/Val (H1N1) antigen 0.03 MG/ML / influenza B virus B/[facility] antigen 0.03 MG/ML / influenza B virus B/[place] antigen 0.03 MG/ML Injectable Suspension IMPERIAL ([facility]) tizanidine 2 MG Oral Tablet tizanidine 2 mg tablet TAKE ONE TABLET BY MOUTH EVERY 8 HOURS NEEDED FOR SPASMS tizanidine 2 mg tablet TAKE ONE TABLET B Y MOUTH EVERY 8 HOURS NEEDED FOR SPASMS completed tizanidine 2 MG Oral Tablet IMPERIAL ([facility]) Prednisone 20 MG Oral Tablet prednisone 20 mg tablet TAKE THREE TABLETS BY MOUTH EVERY DAY DAYS 1 3 THEN TAKE TWO TABLETS BY MOUTH EVERY DAY DAYS 4 7 THEN TAKE ONE TABLET BY MOUTH EVERY DAY D prednisone 20 mg tablet TAKE THREE TABLE TS BY MOUTH EVERY DAY DAYS 1 3 THEN TAKE TWO TABLETS BY MOUTH EVERY DAY DAYS 4 7 THEN TAKE ONE TABLET BY MOUTH EVERY DAY D completed prednisone 20 MG Oral Tablet IMPERIAL ([facility]) gabapentin 300 MG Oral Capsule gabapenti n 300 mg capsule TAKE ONE CAPSULE BY MOUTH AT BEDTIME FOR 7 DAYS THEN TAKE ONE CAPSULE BY MOUTH TWICE A DAY FOR 7 DAYS THEN TAKE ONE CAPSULE BY MOUTH THREE gabapentin 300 mg capsule TAKE ONE CAPSULE BY MOUTH AT BEDTIME FOR 7 DAYS THEN TAKE ONE CAPSULE BY MOUTH TWICE A DAY FOR 7 DAYS THEN TAKE ONE CAPSULE BY MOUTH THREE completed gabapentin 300 MG Oral Capsule IMPERIAL ([facility]) Acetaminophen 325 MG Oral Tablet acetami nophen 325 mg tablet TAKE ONE TABLET BY MOUTH EVERY 6 HOURS NEEDED FOR PAIN acetaminophen 325 mg tablet TAKE ONE TABLET BY MOUTH EVERY 6 HOURS NEEDED FOR PAIN completed acetaminophen 325 MG Oral Tablet IMPERIAL ([facility]) Amoxicillin 875 MG / Clavulanate 125 MG Oral Tablet amoxicillin 875 mg-potassium clavulanate 125 mg tablet TAKE ONE TABLET BY MOUTH TWICE A DAY FOR 14 DAYS amoxicillin 875 mg-potassium clavulanate 125 mg tablet TAKE ONE TABLET BY MOUTH TWICE A DAY FOR 14 DAYS completed amoxicillin 875 MG / clavulanate 125 MG Oral Tablet IMPERIAL ([facility]) methylprednisolone 4 mg tablets in a dos e pack TAKE DOSE BRIJESH DIRECTED ON SHEET [id number] completed methylpre dnisolone 4 mg tablets in a dose pack IMPERIAL ([facility]) Tobramycin 3 MG/ML Ophthalmic Solution t obramycin 0.3 % eye drops INSTILL 2 DROPS INTO AFFECTED EYE S THREE TIMES A DAY FOR 7 DAYS tobramycin 0.3 % eye drops INSTILL 2 DROPS INTO AFFECTED EYE S THREE TIMES A DAY FOR 7 DAYS completed tobramycin 3 MG/ML Ophtha lmic Solution IMPERIAL ([facility]) Sulfamethoxazole 800 MG / Trimethoprim 1 60 MG Oral Tablet sulfamethoxazole 800 mg-trimethoprim 160 mg tablet TAKE 1 TABLET BY MOUTH TWO TIMES A DAY FOR 7 DAYS sulfamethoxazole 800 mg-trimethoprim 160 mg tablet TAKE 1 TABLET BY MOUTH TWO TIMES A DAY FOR 7 DAYS completed sulfamethoxazole 800 MG / trimethoprim 160 MG Oral Tablet IMPERIAL ([facility]) Escitalopram 20 MG Oral Tablet escitalopram 20 mg tabl et escitalopram 20 mg tablet completed escitalopram 20 MG Oral Tablet IMPERIAL ([facility]) gabapentin 300 MG Oral Capsule gabapenti n 300 mg capsule TAKE ONE CAPSULE BY MOUTH AT BEDTIME FOR 7 DAYS THEN TAKE ONE CAPSULE BY MOUTH TWICE A DAY FOR 7 DAYS THEN TAKE ONE CAPSULE BY MOUTH THREE gabapentin 300 mg capsule TAKE ONE CAPSULE BY MOUTH AT BEDTIME FOR 7 DAYS THEN TAKE ONE CAPSULE BY MOUTH TWICE A DAY FOR 7 DAYS THEN TAKE ONE CAPSULE BY MOUTH THREE completed gabapentin 300 MG Oral Capsule IMPERIAL ([facility]) Acetaminophen 325 MG Oral Tablet acetami nophen 325 mg tablet TAKE ONE TABLET BY MOUTH EVERY 6 HOURS NEEDED FOR PAIN acetaminophen 325 mg tablet TAKE ONE TABLET BY MOUTH EVERY 6 HOURS NEEDED FOR PAIN completed acetaminophen 325 MG Oral Tablet ALEX ([facility]) Acetaminophen 325 MG Oral Tablet acetami nophen 325 mg tablet TAKE ONE TABLET BY MOUTH EVERY 6 HOURS NEEDED FOR PAIN acetaminophen 325 mg tablet TAKE ONE TABLET BY MOUTH EVERY 6 HOURS NEEDED FOR PAIN completed acetaminophen 325 MG Oral Tablet ALEX ([facility]) terbinafine 250 MG Oral Tablet terbinafi ne HCl 250 mg tablet TAKE 1 TABLET BY MOUTH ONCE DAILY terbinafine HCl 250 mg tablet TAKE 1 TAB LET BY MOUTH ONCE DAILY completed terbinafine 250 MG Oral Tablet IMPERIAL ([facility]) Tobramycin 3 MG/ML Ophthalmic Solution t obramycin 0.3 % eye drops INSTILL 2 DROPS INTO AFFECTED EYE S THREE TIMES A DAY FOR 7 DAYS tobramycin 0.3 % eye drops INSTILL 2 DROPS INTO AFFECTED EYE S THREE TIMES A DAY FOR 7 DAYS completed tobramycin 3 MG/ML Ophtha lmic Solution IMPERIAL ([facility]) meloxicam 7.5 MG Oral Tablet meloxicam 7 .5 mg tablet TAKE ONE TABLET BY MOUTH EVERY DAY meloxicam 7.5 mg tablet TAKE ONE TABLET BY MOUTH EVERY DAY completed meloxicam 7.5 MG Oral Tablet IMPERIAL ([facility]) Naproxen 500 MG Oral Tablet naproxen 500 mg tablet TAKE ONE TABLET BY MOUTH EVERY 12 HOURS FOR 7 DAYS naproxen 500 mg tablet TAKE ONE TABLET B Y MOUTH EVERY 12 HOURS FOR 7 DAYS completed na proxen 500 MG Oral Tablet IMPERIAL ([facility]) doxycycline hyclate 100 MG Oral Tablet d oxycycline hyclate 100 mg tablet TAKE ONE TABLET BY MOUTH TWICE A DAY doxycycline hyclate 100 mg tablet TAKE O NE TABLET BY MOUTH TWICE A DAY completed doxycycline hyclate 100 MG Oral Tablet ALEX ([facility]) sildenafil 100 MG Oral Tablet sildenafil 100 mg tablet Take 1 tablet every day by oral route as needed. sildenafil 100 mg tablet Take 1 tablet e very day by oral route as needed. 1 completed sildenafil 100 MG Oral Tablet IMPERIAL ([facility]) Furosemide 20 MG Oral Tablet furosemide 20 mg tablet TAKE ONE TABLET BY MOUTH EVERY DAY furosemide 20 mg tablet TAKE ONE TABLET BY MOUTH EVERY DAY completed furosemide 20 MG Oral Tablet IMPERIAL ([facility]) Fluzone Quad 60 mcg (15 mcg x 4)/0.5 mL intramuscular susp. INJECT DIRECTED [id number] completed Fluzon e Quad [id number] 60 mcg (15 mcg x 4)/0.5 mL intramuscular susp. ALEX ([facility]) Tobramycin 3 MG/ML Ophthalmic Solution t obramycin 0.3 % eye drops INSTILL 2 DROPS INTO AFFECTED EYE S THREE TIMES A DAY FOR 7 DAYS tobramycin 0.3 % eye drops INSTILL 2 DROPS INTO AFFECTED EYE S THREE TIMES A DAY FOR 7 DAYS completed tobramycin 3 MG/ML Ophtha lmic Solution ALEX ([facility]) meloxicam 7.5 MG Oral Tablet meloxicam 7 .5 mg tablet TAKE ONE TABLET BY MOUTH EVERY DAY meloxicam 7.5 mg tablet TAKE ONE TABLET BY MOUTH EVERY DAY completed meloxicam 7.5 MG Oral Tablet ALEX ([facility]) Escitalopram 10 MG Oral Tablet escitalop ac 10 mg tablet TAKE ONE TABLET BY MOUTH EVERY DAY escitalopram 10 mg tablet TAKE ONE TABLET BY MOUTH EVERY DAY completed escitalopram 1 0 MG Oral Tablet ALEX ([facility]) Naproxen 500 MG Oral Tablet naproxen 500 mg tablet TAKE ONE TABLET BY MOUTH EVERY 12 HOURS FOR 7 DAYS naproxen 500 mg tablet TAKE ONE TABLET B Y MOUTH EVERY 12 HOURS FOR 7 DAYS completed na proxen 500 MG Oral Tablet ALEX ([facility]) Amoxicillin 875 MG / Clavulanate 125 MG Oral Tablet amoxicillin 875 mg-potassium clavulanate 125 mg tablet TAKE ONE TABLET BY MOUTH TWICE A DAY FOR 14 DAYS amoxicillin 875 mg-potassium clavulanate 125 mg tablet TAKE ONE TABLET BY MOUTH TWICE A DAY FOR 14 DAYS completed amoxicillin 875 MG / clavulanate 125 MG Oral Tablet ALEX ([facility]) gabapentin 300 MG Oral Capsule gabapenti n 300 mg capsule TAKE ONE CAPSULE BY MOUTH AT BEDTIME FOR 7 DAYS THEN TAKE ONE CAPSULE BY MOUTH TWICE A DAY FOR 7 DAYS THEN TAKE ONE CAPSULE BY MOUTH THREE gabapentin 300 mg capsule TAKE ONE CAPSULE BY MOUTH AT BEDTIME FOR 7 DAYS THEN TAKE ONE CAPSULE BY MOUTH TWICE A DAY FOR 7 DAYS THEN TAKE ONE CAPSULE BY MOUTH THREE completed gabapentin 300 MG Oral Capsule ALEX ([facility]) Sulfamethoxazole 800 MG / Trimethoprim 1 60 MG Oral Tablet sulfamethoxazole 800 mg-trimethoprim 160 mg tablet TAKE 1 TABLET BY MOUTH TWO TIMES A DAY FOR 7 DAYS sulfamethoxazole 800 mg-trimethoprim 160 mg tablet TAKE 1 TABLET BY MOUTH TWO TIMES A DAY FOR 7 DAYS completed sulfamethoxazole 800 MG / trimethoprim 160 MG Oral Tablet ALEX ([facility]) tizanidine 2 MG Oral Tablet tizanidine 2 mg tablet TAKE ONE TABLET BY MOUTH EVERY 8 HOURS NEEDED FOR SPASMS tizanidine 2 mg tablet TAKE ONE TABLET B Y MOUTH EVERY 8 HOURS NEEDED FOR SPASMS completed tizanidine 2 MG Oral Tablet ALEX ([facility]) Fluzone Quad 60 mcg (15 mcg x 4)/0.5 mL intramuscular susp. INJECT DIRECTED [id number] completed influe nza A virus A/ (H3N2) antigen 0.03 MG/ML / influenza A virus A/[facility] (H1N1) antigen 0.03 MG/ML / influenza B virus B/[facility] antigen 0.03 MG/ML / influenza B virus B/[place] antigen 0.03 MG/ML Injectable Suspension ALEX ([facility]) Naproxen 500 MG Oral Tablet naproxen 500 mg tablet TAKE ONE TABLET BY MOUTH EVERY 12 HOURS FOR 7 DAYS naproxen 500 mg tablet TAKE ONE TABLET B Y MOUTH EVERY 12 HOURS FOR 7 DAYS completed na proxen 500 MG Oral Tablet IMPERIAL ([facility]) meloxicam 7.5 MG Oral Tablet meloxicam 7 .5 mg tablet TAKE ONE TABLET BY MOUTH EVERY DAY meloxicam 7.5 mg tablet TAKE ONE TABLET BY MOUTH EVERY DAY completed meloxicam 7.5 MG Oral Tablet IMPERIAL ([facility]) Naproxen 500 MG Oral Tablet naproxen 500 mg tablet TAKE ONE TABLET BY MOUTH EVERY 12 HOURS FOR 7 DAYS naproxen 500 mg tablet TAKE ONE TABLET B Y MOUTH EVERY 12 HOURS FOR 7 DAYS [facility] Fl[facility] 60 mcg (15 mcg x 4)/0.5 mL intramuscular susp. INJECT DIRECTED [id number] completed Fluzon e Quad 60 mcg (15 mcg x 4)/0.5 mL intramuscular susp. ALEX ([facility]) Tobramycin 3 MG/ML Ophthalmic Solution t obramycin 0.3 % eye drops INSTILL 2 DROPS INTO AFFECTED EYE S THREE TIMES A DAY FOR 7 DAYS tobramycin 0.3 % eye drops INSTILL 2 DROPS INTO AFFECTED EYE S THREE TIMES A DAY FOR 7 DAYS completed tobramycin 3 MG/ML Ophtha lmic Solution IMPERIAL ([facility]) Escitalopram 20 MG Oral Tablet escitalopram 20 mg tabl et escitalopram 20 mg tablet completed escitalopram 20 MG Oral Tablet ALEX ([facility]) Fluzone Quad 60 mcg (15 mcg x 4)/0.5 mL intramuscular susp. INJECT DIRECTED [id number] completed Fluzon e Quad 60 mcg (15 mcg x 4)/0.5 mL intramuscular susp. ALEX ([facility]) meloxicam 7.5 MG Oral Tablet meloxicam 7 .5 mg tablet TAKE ONE TABLET BY MOUTH EVERY DAY meloxicam 7.5 mg tablet TAKE ONE TABLET BY MOUTH EVERY DAY completed meloxicam 7.5 MG Oral Tablet ALEX ([facility]) meloxicam 7.5 MG Oral Tablet meloxicam 7 .5 mg tablet TAKE ONE TABLET BY MOUTH EVERY DAY meloxicam 7.5 mg tablet TAKE ONE TABLET BY MOUTH EVERY DAY completed meloxicam 7.5 MG Oral Tablet IMPERIAL ([facility]) Amoxicillin 875 MG / Clavulanate 125 MG Oral Tablet amoxicillin 875 mg-potassium clavulanate 125 mg tablet TAKE ONE TABLET BY MOUTH TWICE A DAY FOR 14 DAYS amoxicillin 875 mg-potassium clavulanate 125 mg tablet TAKE ONE TABLET BY MOUTH TWICE A DAY FOR 14 DAYS completed amoxicillin 875 MG / clavulanate 125 MG Oral Tablet IMPERIAL ([facility]) tizanidine 2 MG Oral Tablet tizanidine 2 mg tablet TAKE ONE TABLET BY MOUTH EVERY 8 HOURS NEEDED FOR SPASMS tizanidine 2 mg tablet TAKE ONE TABLET B Y MOUTH EVERY 8 HOURS NEEDED FOR SPASMS completed tizanidine 2 MG Oral Tablet IMPERIAL ([facility]) Omeprazole 20 MG Delayed Release Oral Ca psule omeprazole 20 mg capsule,delayed release TAKE ONE CAPSULE BY MOUTH EVERY DAY omeprazole 20 mg capsule,delayed release TAKE ONE CAPSULE BY MOUTH EVERY DAY completed omeprazole 20 MG Delayed Release Oral Capsule ALEX ([facility]) Naproxen 500 MG Oral Tablet naproxen 500 mg tablet TAKE ONE TABLET BY MOUTH EVERY 12 HOURS FOR 7 DAYS naproxen 500 mg tablet TAKE ONE TABLET B Y MOUTH EVERY 12 HOURS FOR 7 DAYS completed na proxen 500 MG Oral Tablet ALEX ([facility]) Fluzone Quad [id number] 60 mcg (15 mcg x 4)/0.5 mL intramuscular susp. INJECT DIRECTED [id number] completed influe nza A virus A/[facility] (H3N2) antigen 0.03 MG/ML / influenza A virus A/ (H1N1) antigen 0.03 MG/ML / influenza B virus B/[facility] antigen 0.03 MG/ML / influenza B virus B/Val antigen 0.03 MG/ML Injectable Suspension ALEX ([facility]) gabapentin 300 MG Oral Capsule gabapenti n 300 mg capsule TAKE ONE CAPSULE BY MOUTH AT BEDTIME FOR 7 DAYS THEN TAKE ONE CAPSULE BY MOUTH TWICE A DAY FOR 7 DAYS THEN TAKE ONE CAPSULE BY MOUTH THREE gabapentin 300 mg capsule TAKE ONE CAPSULE BY MOUTH AT BEDTIME FOR 7 DAYS THEN TAKE ONE CAPSULE BY MOUTH TWICE A DAY FOR 7 DAYS THEN TAKE ONE CAPSULE BY MOUTH THREE completed gabapentin 300 MG Oral Capsule ALEX ([facility]) sildenafil 100 MG Oral Tablet sildenafil 100 mg tablet Take 1 tablet every day by oral route as needed. sildenafil 100 mg tablet Take 1 tablet e very day by oral route as needed. 1 completed sildenafil 100 MG Oral Tablet ALEX ([facility]) Amoxicillin 875 MG / Clavulanate 125 MG Oral Tablet amoxicillin 875 mg-potassium clavulanate 125 mg tablet TAKE ONE TABLET BY MOUTH TWICE A DAY FOR 14 DAYS amoxicillin 875 mg-potassium clavulanate 125 mg tablet TAKE ONE TABLET BY MOUTH TWICE A DAY FOR 14 DAYS completed amoxicillin 875 MG / clavulanate 125 MG Oral Tablet ALEX ([facility]) Omeprazole 20 MG Delayed Release Oral Ca psule omeprazole 20 mg capsule,delayed release TAKE ONE CAPSULE BY MOUTH EVERY DAY omeprazole 20 mg capsule,delayed release TAKE ONE CAPSULE BY MOUTH EVERY DAY completed omeprazole 20 MG Delayed Release Oral Capsule ALEX ([facility]) Prednisone 20 MG Oral Tablet prednisone 20 mg tablet TAKE THREE TABLETS BY MOUTH EVERY DAY DAYS 1 3 THEN TAKE TWO TABLETS BY MOUTH EVERY DAY DAYS 4 7 THEN TAKE ONE TABLET BY MOUTH EVERY DAY D prednisone 20 mg tablet TAKE THREE TABLE TS BY MOUTH EVERY DAY DAYS 1 3 THEN TAKE TWO TABLETS BY MOUTH EVERY DAY DAYS 4 7 THEN TAKE ONE TABLET BY MOUTH EVERY DAY D completed prednisone 20 MG Oral Tablet ALEX ([facility]) Prednisone 20 MG Oral Tablet prednisone 20 mg tablet TAKE THREE TABLETS BY MOUTH EVERY DAY DAYS 1 3 THEN TAKE TWO TABLETS BY MOUTH EVERY DAY DAYS 4 7 THEN TAKE ONE TABLET BY MOUTH EVERY DAY D prednisone 20 mg tablet TAKE THREE TABLE TS BY MOUTH EVERY DAY DAYS 1 3 THEN TAKE TWO TABLETS BY MOUTH EVERY DAY DAYS 4 7 THEN TAKE ONE TABLET BY MOUTH EVERY DAY D completed prednisone 20 MG Oral Tablet ALEX ([facility]) Furosemide 20 MG Oral Tablet furosemide 20 mg tablet TAKE ONE TABLET BY MOUTH EVERY DAY furosemide 20 mg tablet TAKE ONE TABLET BY MOUTH EVERY DAY completed furosemide 20 MG Oral Tablet IMPERIAL ([facility]) methylprednisolone 4 mg tablets in a dos e pack TAKE DOSE BRIJESH DIRECTED ON SHEET [id number] completed methylpre dnisolone 4 mg tablets in a dose pack ALEX ([facility]) tizanidine 2 MG Oral Tablet tizanidine 2 mg tablet TAKE ONE TABLET BY MOUTH EVERY 8 HOURS NEEDED FOR SPASMS tizanidine 2 mg tablet TAKE ONE TABLET B Y MOUTH EVERY 8 HOURS NEEDED FOR SPASMS completed tizanidine 2 MG Oral Tablet IMPERIAL ([facility]) Omeprazole 20 MG Delayed Release Oral Ca psule omeprazole 20 mg capsule,delayed release TAKE ONE CAPSULE BY MOUTH EVERY DAY omeprazole 20 mg capsule,delayed release TAKE ONE CAPSULE BY MOUTH EVERY DAY completed omeprazole 20 MG Delayed Release Oral Capsule ALEX ([facility]) Acetaminophen 325 MG Oral Tablet acetami nophen 325 mg tablet TAKE ONE TABLET BY MOUTH EVERY 6 HOURS NEEDED FOR PAIN acetaminophen 325 mg tablet TAKE ONE TABLET BY MOUTH EVERY 6 HOURS NEEDED FOR PAIN completed acetaminophen 325 MG Oral Tablet ALEX ([facility]) Amoxicillin 875 MG / Clavulanate 125 MG Oral Tablet amoxicillin 875 mg-potassium clavulanate 125 mg tablet TAKE ONE TABLET BY MOUTH TWICE A DAY FOR 14 DAYS amoxicillin 875 mg-potassium clavulanate 125 mg tablet TAKE ONE TABLET BY MOUTH TWICE A DAY FOR 14 DAYS completed amoxicillin 875 MG / clavulanate 125 MG Oral Tablet ALEX ([facility]) Amoxicillin 875 MG / Clavulanate 125 MG Oral Tablet amoxicillin 875 mg-potassium clavulanate 125 mg tablet TAKE ONE TABLET BY MOUTH TWICE A DAY FOR 14 DAYS amoxicillin 875 mg-potassium clavulanate 125 mg tablet TAKE ONE TABLET BY MOUTH TWICE A DAY FOR 14 DAYS completed amoxicillin 875 MG / clavulanate 125 MG Oral Tablet ALEX ([facility]) doxycycline hyclate 100 MG Oral Tablet d oxycycline hyclate 100 mg tablet TAKE ONE TABLET BY MOUTH TWICE A DAY doxycycline hyclate 100 mg tablet TAKE O NE TABLET BY MOUTH TWICE A DAY completed doxycycline hyclate 100 MG Oral Tablet ALEX ([facility]) tizanidine 2 MG Oral Tablet tizanidine 2 mg tablet TAKE ONE TABLET BY MOUTH EVERY 8 HOURS NEEDED FOR SPASMS tizanidine 2 mg tablet TAKE ONE TABLET B Y MOUTH EVERY 8 HOURS NEEDED FOR SPASMS completed tizanidine 2 MG Oral Tablet ALEX ([facility]) doxycycline hyclate 100 MG Oral Tablet d oxycycline hyclate 100 mg tablet TAKE ONE TABLET BY MOUTH TWICE A DAY doxycycline hyclate 100 mg tablet TAKE O NE TABLET BY MOUTH TWICE A DAY completed doxycycline hyclate 100 MG Oral Tablet ALEX ([facility]) Acetaminophen 325 MG Oral Tablet acetami nophen 325 mg tablet TAKE ONE TABLET BY MOUTH EVERY 6 HOURS NEEDED FOR PAIN acetaminophen 325 mg tablet TAKE ONE TABLET BY MOUTH EVERY 6 HOURS NEEDED FOR PAIN completed acetaminophen 325 MG Oral Tablet ALEX ([facility]) Acetaminophen 325 MG Oral Tablet acetami nophen 325 mg tablet TAKE ONE TABLET BY MOUTH EVERY 6 HOURS NEEDED FOR PAIN acetaminophen 325 mg tablet TAKE ONE TABLET BY MOUTH EVERY 6 HOURS NEEDED FOR PAIN completed acetaminophen 325 MG Oral Tablet ALEX ([facility]) meloxicam 7.5 MG Oral Tablet meloxicam 7 .5 mg tablet TAKE ONE TABLET BY MOUTH EVERY DAY meloxicam 7.5 mg tablet TAKE ONE TABLET BY MOUTH EVERY DAY completed meloxicam 7.5 MG Oral Tablet ALEX ([facility]) tizanidine 2 MG Oral Tablet tizanidine 2 mg tablet TAKE ONE TABLET BY MOUTH EVERY 8 HOURS NEEDED FOR SPASMS tizanidine 2 mg tablet TAKE ONE TABLET B Y MOUTH EVERY 8 HOURS NEEDED FOR SPASMS completed tizanidine 2 MG Oral Tablet ALEX ([facility]) Furosemide 20 MG Oral Tablet furosemide 20 mg tablet TAKE ONE TABLET BY MOUTH EVERY DAY furosemide 20 mg tablet TAKE ONE TABLET BY MOUTH EVERY DAY completed furosemide 20 MG Oral Tablet ALEX ([facility]) Furosemide 20 MG Oral Tablet furosemide 20 mg tablet TAKE ONE TABLET BY MOUTH EVERY DAY furosemide 20 mg tablet TAKE ONE TABLET BY MOUTH EVERY DAY completed furosemide 20 MG Oral Tablet IMPERIAL ([facility]) gabapentin 300 MG Oral Capsule gabapenti n 300 mg capsule TAKE ONE CAPSULE BY MOUTH AT BEDTIME FOR 7 DAYS THEN TAKE ONE CAPSULE BY MOUTH TWICE A DAY FOR 7 DAYS THEN TAKE ONE CAPSULE BY MOUTH THREE gabapentin 300 mg capsule TAKE ONE CAPSULE BY MOUTH AT BEDTIME FOR 7 DAYS THEN TAKE ONE CAPSULE BY MOUTH TWICE A DAY FOR 7 DAYS THEN TAKE ONE CAPSULE BY MOUTH THREE completed gabapentin 300 MG Oral Capsule IMPERIAL ([facility]) Escitalopram 10 MG Oral Tablet escitalop ac 10 mg tablet TAKE ONE TABLET BY MOUTH EVERY DAY escitalopram 10 mg tablet TAKE ONE TABLET BY MOUTH EVERY DAY completed escitalopram 1 0 MG Oral Tablet IMPERIAL ([facility]) doxycycline hyclate 100 MG Oral Tablet d oxycycline hyclate 100 mg tablet TAKE ONE TABLET BY MOUTH TWICE A DAY doxycycline hyclate 100 mg tablet TAKE O NE TABLET BY MOUTH TWICE A DAY completed doxycycline hyclate 100 MG Oral Tablet ALEX ([facility]) Naproxen 500 MG Oral Tablet naproxen 500 mg tablet TAKE ONE TABLET BY MOUTH EVERY 12 HOURS FOR 7 DAYS naproxen 500 mg tablet TAKE ONE TABLET B Y MOUTH EVERY 12 HOURS FOR 7 DAYS completed na proxen 500 MG Oral Tablet IMPERIAL ([facility]) Acetaminophen 325 MG Oral Tablet acetami nophen 325 mg tablet TAKE ONE TABLET BY MOUTH EVERY 6 HOURS NEEDED FOR PAIN acetaminophen 325 mg tablet TAKE ONE TABLET BY MOUTH EVERY 6 HOURS NEEDED FOR PAIN completed acetaminophen 325 MG Oral Tablet IMPERIAL ([facility]) Escitalopram 10 MG Oral Tablet escitalop ac 10 mg tablet TAKE ONE TABLET BY MOUTH EVERY DAY escitalopram 10 mg tablet TAKE ONE TABLET BY MOUTH EVERY DAY completed escitalopram 1 0 MG Oral Tablet IMPERIAL ([facility]) tizanidine 2 MG Oral Tablet tizanidine 2 mg tablet TAKE ONE TABLET BY MOUTH EVERY 8 HOURS NEEDED FOR SPASMS tizanidine 2 mg tablet TAKE ONE TABLET B Y MOUTH EVERY 8 HOURS NEEDED FOR SPASMS completed tizanidine 2 MG Oral Tablet ALEX ([facility]) Naproxen 500 MG Oral Tablet naproxen 500 mg tablet TAKE ONE TABLET BY MOUTH EVERY 12 HOURS FOR 7 DAYS naproxen 500 mg tablet TAKE ONE TABLET B Y MOUTH EVERY 12 HOURS FOR 7 DAYS completed na proxen 500 MG Oral Tablet ALEX ([facility]) tizanidine 2 MG Oral Tablet tizanidine 2 mg tablet TAKE ONE TABLET BY MOUTH EVERY 8 HOURS NEEDED FOR SPASMS tizanidine 2 mg tablet TAKE ONE TABLET B Y MOUTH EVERY 8 HOURS NEEDED FOR SPASMS completed tizanidine 2 MG Oral Tablet IMPERIAL ([facility]) Escitalopram 10 MG Oral Tablet escitalop ac 10 mg tablet TAKE ONE TABLET BY MOUTH EVERY DAY escitalopram 10 mg tablet TAKE ONE TABLET BY MOUTH EVERY DAY completed escitalopram 1 0 MG Oral Tablet IMPERIAL ([facility]) Acetaminophen 325 MG Oral Tablet acetami nophen 325 mg tablet TAKE ONE TABLET BY MOUTH EVERY 6 HOURS NEEDED FOR PAIN acetaminophen 325 mg tablet TAKE ONE TABLET BY MOUTH EVERY 6 HOURS NEEDED FOR PAIN completed acetaminophen 325 MG Oral Tablet IMPERIAL ([facility]) terbinafine 250 MG Oral Tablet terbinafi ne HCl 250 mg tablet TAKE 1 TABLET BY MOUTH ONCE DAILY terbinafine HCl 250 mg tablet TAKE 1 TAB LET BY MOUTH ONCE DAILY completed terbinafine 250 MG Oral Tablet IMPERIAL ([facility]) Omeprazole 20 MG Delayed Release Oral Ca psule omeprazole 20 mg capsule,delayed release TAKE ONE CAPSULE BY MOUTH EVERY DAY omeprazole 20 mg capsule,delayed release TAKE ONE CAPSULE BY MOUTH EVERY DAY completed omeprazole 20 MG Delayed Release Oral Capsule ALEX ([facility]) gabapentin 300 MG Oral Capsule gabapenti n 300 mg capsule TAKE ONE CAPSULE BY MOUTH AT BEDTIME FOR 7 DAYS THEN TAKE ONE CAPSULE BY MOUTH TWICE A DAY FOR 7 DAYS THEN TAKE ONE CAPSULE BY MOUTH THREE gabapentin 300 mg capsule TAKE ONE CAPSULE BY MOUTH AT BEDTIME FOR 7 DAYS THEN TAKE ONE CAPSULE BY MOUTH TWICE A DAY FOR 7 DAYS THEN TAKE ONE CAPSULE BY MOUTH THREE completed gabapentin 300 MG Oral Capsule ALEX ([facility]) doxycycline hyclate 100 MG Oral Tablet d oxycycline hyclate 100 mg tablet TAKE ONE TABLET BY MOUTH TWICE A DAY doxycycline hyclate 100 mg tablet TAKE O NE TABLET BY MOUTH TWICE A DAY completed doxycycline hyclate 100 MG Oral Tablet ALEX ([facility]) Fluzone Quad 60 mcg (15 mcg x 4)/0.5 mL intramuscular susp. INJECT DIRECTED [id number] completed Fluzon e Quad 60 mcg (15 mcg x 4)/0.5 mL intramuscular susp. 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 Plan Information Ghi FHP-(DO Not Use) [facility] Part B [id number] Self [place] Medig[place] Part B [id number] Self MEDICARE A [id number] Self [id number] A MEDICAID M [id number] Self [id number] EXCELLUS I [id number] Self [id number] Medicaid S [id number] S [id number] [facility] I [id number] Self [id number] Managed Care - Community Plan [facility] P [id number] S [id number] [facility] Community Plan [facility] Part B [id number] Self Managed Care - Community Plan [facility] P [id number] S [id number] Medicaid S [id number] S [id number] Managed Care - Community Plan [facility] P [id number] S [id number] Medicare P [id number] S [id number] A Medicare P [id number] S [id number] A Medicaid S [id number] S [id number] MEDICAID [id number] SP [id number] MEDICAID [id number] SP [id number] [place] [id number] [place] Part B [id number] Self Medicare C [id number] SELF [id number] A MEDICAID [id number] SP [id number] Medicaid [facility] Healthcare S D [id number] SELF [id number] Medicaid S [id number] S [id number] Medicaid S [id number] S [id number] Medicare Wrap O [id number] S [id number] [facility] [id number] SP [id number] Medicare P [id number] S [id number] D [facility] O [id number] S [id number] [facility] P [id number] S [id number] Medicare S [id number] S [id number] A MEDICAID [id number] SP [id number] Medicaid S [id number] S [id number] [place] [id number] SP [id number] [facility] MCRO [id number] SP [id number] UHC UNITED MEDICARE DUAL G [id number] Self [id number] [facility] P [id number] S [id number] Medicaid S [id number] S [id number] [facility] P [id number] S [id number] Medicare Dme Supplies Medigap Part B [id number] Self DME Jurisdiction [facility] C [id number] SELF [id number] [facility]/MCR Medigap Part B [id number] Self [place] Part B [id number] [place] Medicare Primary [id number] Self MEDICAID UNAVAILABLE UNAVAILA BLE UN COMMUNITY PLAN MCDO [id number] SP [id number] Medicare P [id number] S [id number] MEDICARE [id number] SP [id number] MEDICARE [id number] SP [id number] [facility] P UNAVAILABLE [id number] S UNAVAILABLE SELF PAY UNAVAILABLE SP UNAVAILA BLE BLUE CROSS LEOLA PLAN [id number] SP [id number] MEDICAID W [id number] S [id number] MEDICAID W [id number] S [id number] BLUE CHOICE OPTION O [id number] S [id number] O BLUE [id number] SP [id number] O [id number] S [id number] S [id number] EMEDNY [id number] SP [id number] [facility]) O [id number] S [id number] Medicaid Dental O [id number] S [id number] MEDICARE [id number] SP [id number] MEDICAID M [id number] S [id number] MEDICAID [id number] SP [id number] [facility] [id number] SP [id number] MEDICAID [id number] SP [id number] [place] Medicare Primary [id number] Self [id number] Medicaid [place] Med[place] Part B [id number] Self [id number] [place] Medicare Primary [id number] Self [id number] [facility] Medigap Part B [id number] Self [id number] Dual Complete Medigap Part B [id number] Self [id number] [place] Medicare Primary [id number] Self 1 [id number] Medicaid [place] Med[place] Part B [id number] Self [id number] [place] Medicare Primary [id number] Self [id number] [place] Medicare Primary [id number] Self 1 [id number] Medicaid [place] Med[place] Part B [id number] Self [id number] [place] Medicare Primary [id number] Self [id number] Medicare [facility]/[place] Medicare Primary [id number] Self 1 [id number] Medicaid [facility] Part B [id number] Self [id number] Medicare [facility] Medicare Primary [id number] Self [id number] ANSI-Medicare Part B [id number] ANSI-Medicaid [id number] ANSI-Medicare Part B [id number] MEDICARE [facility] [id number] SP [id number] Medicare [facility] Medicare Primary [id number] Self 1 [id number] [facility] Medigap Part B [id number] Self 1 [id number] Medicaid [place] Med[place] Part B [id number] Self [id number] [facility] Health Maintenance Organization (HMO) [id number] Self [id number] [facility] [id number] SP [id number] MEDICARE [id number] SP [id number] MEDICARE [id number] SP [id number] A Medicare Wrap O [id number] S [id number] [facility] P [id number] S [id number] [facility] [id number] SP [id number] MEDICARE C [id number] S [id number] A Problems, Conditions, and Diagnoses Code Display Name Description Problem Type Effective Dates Data Source(s) 848039135 Decreased testosterone level Decreased Testosterone Le lynda Problem 11/27/2020 12:00:00 AM EDT ALEX ([facility]) [id number] Decreased testosterone level Decreased Testosterone Le lynda Problem 11/27/2020 12:00:00 AM EDT ALEX ([facility]) [id number] Decreased testosterone level Decreased Testosterone Le lynda Problem 11/27/2020 12:00:00 AM EDT ALEX ([facility]) [id number] Decreased testosterone level Decreased Testosterone Le lynda Problem 11/27/2020 12:00:00 AM EDT ALEX ([facility]) [id number] Decreased testosterone level Decreased Testosterone Le lynda Problem 11/27/2020 12:00:00 AM EDT ALEX ([facility]) [id number] Decreased testosterone level Decreased Testosterone Le lynda Problem 11/27/2020 12:00:00 AM EDT ALEX ([facility]) [id number] Decreased testosterone level Decreased Testosterone Le lynda Problem 11/27/2020 12:00:00 AM EDT ALEX ([facility]) [id number] Decreased testosterone level Decreased Testosterone Le lynda Problem 11/27/2020 12:00:00 AM EDT ALEX ([facility]) [id number] Decreased testosterone level Decreased Testosterone Le lynda Problem 11/27/2020 12:00:00 AM EDT ALEX ([facility]) [id number] Decreased testosterone level Decreased Testosterone Le lynda Problem 11/27/2020 12:00:00 AM EDT ALEX ([facility]) [id number] Decreased testosterone level Decreased Testosterone Le lynda Problem 11/27/2020 12:00:00 AM EDT ALEX ([facility]) [id number] Decreased testosterone level Decreased Testosterone Le lynda Problem 11/27/2020 12:00:00 AM EDT ALEX ([facility]) [id number] Decreased testosterone level Decreased Testosterone Le lynda Problem 11/27/2020 12:00:00 AM EDT ALEX ([facility]) [id number] Decreased testosterone level Decreased Testosterone Le lynda Problem 11/27/2020 12:00:00 AM EDT ALEX ([facility]) [id number] Decreased testosterone level Decreased Testosterone Le lynda Problem 11/27/2020 12:00:00 AM EDT ALEX ([facility]) [id number] Decreased testosterone level Decreased Testosterone Le lynda Problem 11/27/2020 12:00:00 AM EDT ALEX ([facility]) [id number] Erectile dysfunction Erectile Dysfunction Problem 09/19/2020 12:00:00 AM EST ALEX ([facility]) [id number] Erectile dysfunction Erectile Dysfunction Problem 09/19/2020 12:00:00 AM EST ALEX ([facility]) [id number] Erectile dysfunction Erectile Dysfunction Problem 09/19/2020 12:00:00 AM EST ALEX ([facility]) [id number] Erectile dysfunction Erectile Dysfunction Problem 09/19/2020 12:00:00 AM EST ALEX ([facility]) [id number] Erectile dysfunction Erectile Dysfunction Problem 09/19/2020 12:00:00 AM EST ALEX ([facility]) [id number] Erectile dysfunction Erectile Dysfunction Problem 09/19/2020 12:00:00 AM EST ALEX ([facility]) [id number] Erectile dysfunction Erectile Dysfunction Problem 09/19/2020 12:00:00 AM EST ALEX ([facility]) [id number] Erectile dysfunction Erectile Dysfunction Problem 09/19/2020 12:00:00 AM EST ALEX ([facility]) [id number] Erectile dysfunction Erectile Dysfunction Problem 09/19/2020 12:00:00 AM EST ALEX ([facility]) [id number] Erectile dysfunction Erectile Dysfunction Problem 09/19/2020 12:00:00 AM EST ALEX ([facility]) [id number] Erectile dysfunction Erectile Dysfunction Problem 09/19/2020 12:00:00 AM EST ALEX ([facility]) [id number] Erectile dysfunction Erectile Dysfunction Problem 09/19/2020 12:00:00 AM EST ALEX ([facility]) [id number] Erectile dysfunction Erectile Dysfunction Problem 09/19/2020 12:00:00 AM EST ALEX ([facility]) [id number] Erectile dysfunction Erectile Dysfunction Problem 09/19/2020 12:00:00 AM EST ALEX ([facility]) [id number] Erectile dysfunction Erectile Dysfunction Problem 09/19/2020 12:00:00 AM EST AELX ([facility]) [id number] Erectile dysfunction Erectile Dysfunction Problem 09/19/2020 12:00:00 AM EST ALEX ([facility]) [id number] Erectile dysfunction Erectile Dysfunction Problem 09/19/2020 12:00:00 AM EST ALEX ([facility]) [id number] Erectile dysfunction Erectile Dysfunction Problem 09/19/2020 12:00:00 AM EST ALEX ([facility]) [id number] Primary erectile dysfunction Primary Erectile Dysfunct ion Problem 05/08/2020 12:00:00 AM EDT ALEX ([facility]) [id number] Primary erectile dysfunction Primary Erectile Dysfunct ion Problem 05/08/2020 12:00:00 AM EDT ALEX ([facility]) [id number] Primary erectile dysfunction Primary Erectile Dysfunct ion Problem 05/08/2020 12:00:00 AM EDT ALEX ([facility]) [id number] Primary erectile dysfunction Primary Erectile Dysfunct ion Problem 05/08/2020 12:00:00 AM EDT ALEX ([facility]) [id number] Primary erectile dysfunction Primary Erectile Dysfunct ion Problem 05/08/2020 12:00:00 AM EDT ALEX ([facility]) [id number] Primary erectile dysfunction Primary Erectile Dysfunct ion Problem 05/08/2020 12:00:00 AM EDT ALEX ([facility]) [id number] Primary erectile dysfunction Primary Erectile Dysfunct ion Problem 05/08/2020 12:00:00 AM EDT ALEX ([facility]) [id number] Primary erectile dysfunction Primary Erectile Dysfunct ion Problem 05/08/2020 12:00:00 AM EDT ALEX ([facility]) [id number] Primary erectile dysfunction Primary Erectile Dysfunct ion Problem 05/08/2020 12:00:00 AM EDT ALEX ([facility]) [id number] Primary erectile dysfunction Primary Erectile Dysfunct ion Problem 05/08/2020 12:00:00 AM EDT ALEX ([facility]) [id number] Primary erectile dysfunction Primary Erectile Dysfunct ion Problem 05/08/2020 12:00:00 AM EDT ALEX ([facility]) [id number] Primary erectile dysfunction Primary Erectile Dysfunct ion Problem 05/08/2020 12:00:00 AM EDT ALEX ([facility]) [id number] Primary erectile dysfunction Primary Erectile Dysfunct ion Problem 05/08/2020 12:00:00 AM EDT ALEX ([facility]) [id number] Primary erectile dysfunction Primary Erectile Dysfunct ion Problem 05/08/2020 12:00:00 AM EDT ALEX ([facility]) [id number] Primary erectile dysfunction Primary Erectile Dysfunct ion Problem 05/08/2020 12:00:00 AM EDT ALEX ([facility]) [id number] Primary erectile dysfunction Primary Erectile Dysfunct ion Problem 05/08/2020 12:00:00 AM EDT ALEX ([facility]) [id number] Primary erectile dysfunction Primary Erectile Dysfunct ion Problem 05/08/2020 12:00:00 AM EDT ALEX ([facility]) [id number] Primary erectile dysfunction Primary Erectile Dysfunct ion Problem 05/08/2020 12:00:00 AM EDT ALEX ([facility]) [id number] Primary erectile dysfunction Primary Erectile Dysfunct ion Problem 05/08/2020 12:00:00 AM EDT ALEX ([facility]) [id number] SNOMED CT Concept SNOMED CT Concept Problem 04/25 05:55:28 PM EDT ALEX ([facility]) [id number] Depressive disorder Depressive Disorder Problem 1 05:55:28 PM EDT ALEX ([facility]) [id number] SNOMED CT Concept SNOMED CT Concept Problem 04/25 05:55:28 PM EDT ALEX ([facility]) [id number] Depressive disorder Depressive Disorder Problem 1 05:55:28 PM EDT ALEX ([facility]) [id number] SNOMED CT Concept SNOMED CT Concept Problem 04/25 05:55:28 PM EDT [facility] [facility]) [id number] Depressive disorder Depressive Disorder Problem 1 05:55:28 PM EDT ALEX ([facility] er) [id number] SNOMED CT Concept SNOMED CT Concept Problem 04/25 05:55:28 PM EDT ALEX ([facility] er) [id number] Depressive disorder Depressive Disorder Problem 1 05:55:28 PM EDT ALEX ([facility] er) [id number] SNOMED CT Concept SNOMED CT Concept Problem 04/25 05:55:28 PM EDT ALEX ([facility] er) [id number] Depressive disorder Depressive Disorder Problem 1 05:55:28 PM EDT ALEX ([facility] er) [id number] Depressive disorder Depressive Disorder Problem 1 05:55:28 PM EDT ALEX ([facility] er) [id number] SNOMED CT Concept SNOMED CT Concept Problem 04/25 05:55:28 PM EDT ALEX ([facility] er) [id number] SNOMED CT Concept SNOMED CT Concept Problem 04/25 05:55:28 PM EDT ALEX ([facility] er) [id number] Depressive disorder Depressive Disorder Problem 1 05:55:28 PM EDT ALEX ([facility] er) [id number] SNOMED CT Concept SNOMED CT Concept Problem 04/25 05:55:28 PM EDT ALEX ([facility] er) [id number] Depressive disorder Depressive Disorder Problem 1 05:55:28 PM EDT ALEX ([facility] er) [id number] SNOMED CT Concept SNOMED CT Concept Problem 04/25 05:55:28 PM EDT ALEX ([facility] er) [id number] Depressive disorder Depressive Disorder Problem 1 05:55:28 PM EDT ALEX ([facility] er) [id number] SNOMED CT Concept SNOMED CT Concept Problem 04/25 05:55:28 PM EDT ALEX ([facility] er) [id number] Depressive disorder Depressive Disorder Problem 1 05:55:28 PM EDT ALEX ([facility]) [id number] SNOMED CT Concept SNOMED CT Concept Problem 04/25 05:55:28 PM EDT ALEX ([facility] er) [id number] Depressive disorder Depressive Disorder Problem 1 05:55:28 PM EDT ALEX ([facility] er) [id number] SNOMED CT Concept SNOMED CT Concept Problem 04/25 05:55:28 PM EDT ALEX ([facility] er) [id number] Depressive disorder Depressive Disorder Problem 1 05:55:28 PM EDT ALEX ([facility] er) [id number] Depressive disorder Depressive Disorder Problem 1 05:55:28 PM EDT ALEX ([facility] er) [id number] SNOMED CT Concept SNOMED CT Concept Problem 04/25 05:55:28 PM EDT ALEX ([facility] er) [id number] Depressive disorder Depressive Disorder Problem 1 05:55:28 PM EDT ALEX ([facility] er) [id number] SNOMED CT Concept SNOMED CT Concept Problem 04/25 05:55:28 PM EDT ALEX ([facility] er) [id number] SNOMED CT Concept SNOMED CT Concept Problem 04/25 05:55:28 PM EDT ALEX ([facility] er) [id number] Depressive disorder Depressive Disorder Problem 1 05:55:28 PM EDT ALEX ([facility] er) [id number] SNOMED CT Concept SNOMED CT Concept Problem 04/25 05:55:28 PM EDT ALEX ([facility] er) [id number] Depressive disorder Depressive Disorder Problem 1 05:55:28 PM EDT ALEX ([facility] er) 873848304 SNOMED CT Concept SNOMED CT Concept Problem 04/25 05:55:28 PM EDT ALEX ([facility] er) [id number] Depressive disorder Depressive Disorder Problem 1 05:55:28 PM EDT ALEX ([facility] er) [id number] SNOMED CT Concept SNOMED CT Concept Problem 04/25 05:55:28 PM EDT ALEX ([facility] er) [id number] Depressive disorder Depressive Disorder Problem 1 05:55:28 PM EDT ALEX ([facility] er) [id number] SNOMED CT Concept SNOMED CT Concept Problem 04/25 05:55:28 PM EDT ALEX ([facility] er) [id number] Depressive disorder Depressive Disorder Problem 1 05:55:28 PM EDT ALEX ([facility] er) Surgeries/Procedures Procedure Description Date Indications Data Source(s) XR, chest, 2 view 04/18/2021 12:00:00 AM EDT [facility]) XR, chest, 2 view [facility] 04/18/2021 12:00:00 AM EDT IMPERIAL ([facility]) XR, chest, 2 view 04/18/2021 12:00:00 AM EDT [facility]) [facility] 04/02/2021 12:00:00 AM EDT MEDDARVIN ([facility], ) SBSQ HOSPITAL CARE/DAY 25 MINUTES 04/01/2021 12:00:00 AM EDT MEDENT ([facility]) INITIAL HOSPITAL CARE/DAY 30 MINUTES 03/31/2021 12:00: 00 AM EDT UZMA ([facility], ) Results ID Date Data Source [id number] 05/01/2021 01:23:00 PM EDT IMPERIAL ([facility]) Name Value Range Interpretation Code Description Data Huma rce(s) Supporting Document(s) sars-cov-2 negative negative Sars-cov-2 [facility]) ID Date Data Source [id number] 05/01/2021 01:23:00 PM EDT [facility]) Name Value Range Interpretation Code Description Data Huma rce(s) Supporting Document(s) sars-cov-2 negative negative Sars-cov-2 [facility]) ID Date Data Source [id number] 03/31/2021 01:20:00 AM EDT [facility] Name Value Range Interpretation Code Description Data Huma rce(s) Supporting Document(s) SARS-CoV-2 (COVID 19) NEGATIVE - SARS-CoV-2 (COVID19) [facility] This lab was ordered by [facility] a nd reported by [facility]. ID Date Data Source [id number] 03/28/2021 02:51:00 PM EDT [facility]) Name Value Range Interpretation Code Description Data Huma rce(s) Supporting Document(s) SARS-CoV-2 (COVID-19) RNA [Presence] in Respiratory specimen by OC with probe detection not detected not detected Sars Cov 2 RNA [facility]) ID Date Data Source [id number] 03/28/2021 02:51:00 PM EDT [facility]) Name Value Range Interpretation Code Description Data Huma rce(s) Supporting Document(s) SARS-CoV-2 (COVID-19) RNA [Presence] in Respiratory specimen by OC with probe detection not detected not detected Sars Cov 2 RNA [facility]) ID Date Data Source [id number] 03/28/2021 02:51:00 PM EDT [facility]) Name Value Range Interpretation Code Description Data Huma rce(s) Supporting Document(s) SARS-CoV-2 (COVID-19) RNA [Presence] in Respiratory specimen by OC with probe detection not detected not detected Sars Cov 2 RNA [facility]) ID Date Data Source [id number] 03/28/2021 02:51:00 PM EDT [facility]) Name Value Range Interpretation Code Description Data Huma rce(s) Supporting Document(s) SARS-CoV-2 (COVID-19) RNA [Presence] in Respiratory specimen by OC with probe detection not detected not detected Sars Cov 2 RNA [facility]) ID Date Data Source [id number] 03/28/2021 02:51:00 PM EDT [facility]) Name Value Range Interpretation Code Description Data Huma rce(s) Supporting Document(s) SARS-CoV-2 (COVID-19) RNA [Presence] in Respiratory specimen by OC with probe detection not detected not detected Sars Cov 2 RNA [facility]) ID Date Data Source [id number] 03/28/2021 02:51:00 PM EDT [facility]) Name Value Range Interpretation Code Description Data Huma rce(s) Supporting Document(s) SARS-CoV-2 (COVID-19) RNA [Presence] in Respiratory specimen by OC with probe detection not detected not detected Sars Cov 2 RNA [facility]) ID Date Data Source [id number] 03/30/2021 11:58:00 AM EDT [facility] Name Value Range Interpretation Code Description Data Huma rce(s) Supporting Document(s) [id number] NOT DETECTED [facility] A Not Detected result means that SARS-Co V-2 RNA was notpresent in the specimen above the limit of detection.Test Method: Nucleic Acid Amplification Test includingreverse blending tank tender polymerase chain reaction (RT-PCR)and blending tank tender mediated amplification (TMA). The testmethod meets the [place] Centers for Disease Control andprevention (CDC) pre departure and arrival requirementfor viral test for COVID-19 dated August 08, 2020.Testing requirements for traveling may change with time.The patient is responsible for determining the testrequirements for each nation while they are traveling.This patient specimen was tested using an FDA EUA poolingmethod.Patient specimens with low viral loads may not be detectedin sample pools due to the decreased sensitivity ofpooled testing.Please review the "Fact Sheets" and FDA authorizedlabeling available for health care providers andpatients using the following websites:https://www.[employer].com/home/Covid-19/HCP/NAAT/fact-cxftk0euem s://www.[employer]/home/Covid-19/Patients/NAAT/fact-hoojm4Ggan test has been authorized by the FDA under anEmergency Use Authorization (EUA) for use by authorizedlaboratories.Due to the current public health emergency, [facility] is accepting samples from appropriateclinical sources collected using wide variety ofswabs and transport media for COVID-19. Not detectedtest results derived from specimens received in non-commercially manufactured viral collection kits or thosenot yet authorized by FDA for COVID-19 testing should becautiously evaluated and take extra precautions such assuch as additional clinical monitoring, including collectionof an additional specimen.Additional information about COVID-19 can be foundat the [facility] website:[email or web address]. ID Date Data Source [id number] 03/28/2021 02:51:00 PM EDT [facility] Name Value Range Interpretation Code Description Data Huma rce(s) Supporting Document(s) SARS-COV-2 RNA RESP QL OC+PROBE Not detected [facility] This lab was ordered by [facility] and reported by [facility]. ID Date Data Source [id number] 02/12/2021 10:50:00 AM EDT [facility]) Name Value Range Interpretation Code Description Data Huma rce(s) Supporting Document(s) Hemoglobin A1c/Hemoglobin.total in Blood 5.7 % Hemoglobin a1C IMPERIAL ([facility]) estimated average glucose 117 mg/dL 60-110 Above high norm al Estimated Average Glucose IMPERIAL ([facility]) ID Date Data Source [id number] 02/12/2021 10:50:00 AM EDT [facility]) Name Value Range Interpretation Code Description Data Huma rce(s) Supporting Document(s) thyroid stimulating hormone 1.980 uIU/mL 0.358-3.740 Thyroid Stimulating Hormone [facility]) ID Date Data Source [id number] 02/12/2021 10:50:00 AM EDT [facility]) Name Value Range Interpretation Code Description Data Huma rce(s) Supporting Document(s) prostatic specific Ag monitor 0.30 NG/mL < 4.00 Prosta tic Specific Ag Monitor IMPERIAL ([facility]) ID Date Data Source [id number] 02/12/2021 10:50:00 AM EDT [facility]) Name Value Range Interpretation Code Description Data Huma rce(s) Supporting Document(s) testosterone 536 NG/dL [phone] Testosterone [facility]ERIAL ([facility]) ID Date Data Source [id number] 02/12/2021 10:50:00 AM EDT [facility]) Name Value Range Interpretation Code Description Data Huma rce(s) Supporting Document(s) creatinine for GFR 1.11 mg/dL 0.70-1.30 Creatinine for GF R IMPERIAL ([facility]) blood urea nitrogen 13 mg/dL 7-18 Blood Urea Nitro gen IMPERIAL ([facility]) glucose, fasting 94 mg/dL 70-100 Glucose, Fasting AT [facility]) glomerular filtration rate > 60.0 >56 Glomerula r Filtration Rate ALEX ([facility]) potassium serum 4.3 mEq/L 3.5-5.1 Potassium Serum ATHE ([facility]) chloride level 101 mEq/L 98-107 Chloride Level ALEX ([facility]) carbon dioxide level 28 mEq/L 21-32 Carbon Dioxide Level ALEX ([facility]) sodium level 135 mEq/L 136-145 Below low normal Sodium Level ATHE NA ([facility]) calcium level 8.8 mg/dL 8.5-10.1 Calcium Level ALEX ( [facility]) anion gap 6 mEq/L 8-16 Below low normal Anion Gap ALEX ( [facility]) AST/SGOT 20 U/L 7-37 AST/SGOT ALEX ([facility]) alkaline phosphatase 114 U/L 45-117 Alkaline Phosph atase ALEX ([facility]) ALT/SGPT 18 U/L 12-78 ALT/SGPT ALEX ([facility]) albumin/globulin ratio Albumin/globu karlee Ratio ALEX ([facility]) bilirubin,total 0.3 mg/dL 0.2-1.0 Bilirubin,total ATHE ([facility]) total protein 7.9 gm/dL 6.4-8.2 Total Protein ALEX ( [facility]) albumin 3.6 gm/dL 3.2-5.2 Albumin ALEX ([facility]) ID Date Data Source [id number] 02/12/2021 10:50:00 AM EDT ALEX ([facility]) Name Value Range Interpretation Code Description Data Huma rce(s) Supporting Document(s) white blood count 9.2 10 4.0-10.0 White Blood Count ALEX ([facility]) red blood count 5.60 10 4.30-6.10 Red Blood Count ATHE ([facility]) hemoglobin 13.4 g/dL 13.5-17.5 Below low normal Hemoglobin ALEX ( [facility]) mean corpuscular hemoglobin 23.9 pg 27.0-33.0 Below low nor mal Mean Corpuscular Hemoglobin ALEX ([facility]) mean corpuscular volume 79.8 fL 80.0-96.0 Below low normal Mean Corpuscular Volume ALEX ([facility]) hematocrit 44.7 % 42.0-52.0 Hematocrit ALEX ([facility]) neutrophils % 62.2 % 36.0-66.0 Neutrophils % ALEX ( [facility]) red cell distribution width 15.3 % 11.5-14.5 Above high no rmal Red Cell Distribution Width ALEX ([facility]) platelet count, automated 298 10 150-450 Platelet C ount, Automated ALEX ([facility]) mean corpuscular HGB conc 30.0 g/dL 32.0-36.5 Below low tino l Mean Corpuscular HGB Conc ALEX ([facility]) mono % 8.8 % 2.0-8.0 Above high normal [place] % ALEX ([facility]) eos % 1.0 % 0.0-3.0 Eos % ALEX ([facility]) baso % 0.3 % 0.0-1.0 Baso % ALEX ([facility]) lymph % 27.4 % 24.0-44.0 Lymph % ALEX ([facility]) neutrophils # 5.7 10 1.5-8.5 Neutrophils # IMPERIAL ( [facility]) immature granulocyte % 0.3 % 0-3.0 Immature Gran ulocyte % ALEX ([facility]) lymph # 2.5 10 1.5-5.0 Lymph # ALEX ([facility]) nucleated red blood cell % 0.0 % 0-0 Nucleated Red Blood Cell % ALEX ([facility]) eos # 0.1 10 0.0-0.5 Eos # ALEX ([facility]) baso # 0.0 10 0.0-0.2 Baso # ALEX ([facility]) mono # 0.8 10 0.0-0.8 [place] # ALEX ([facility]) ID Date Data Source [id number] 02/12/2021 10:50:00 AM EDT IMPERIAL ([facility]) Name Value Range Interpretation Code Description Data Huma rce(s) Supporting Document(s) estimated average glucose 117 mg/dL 60-110 Above high norm al Estimated Average Glucose IMPERIAL ([facility]) Hemoglobin A1c/Hemoglobin.total in Blood 5.7 % Hemoglobin a1C IMPERIAL ([facility]) ID Date Data Source [id number] 02/12/2021 10:50:00 AM EDT IMPERIAL ([facility]) Name Value Range Interpretation Code Description Data Huma rce(s) Supporting Document(s) thyroid stimulating hormone 1.980 uIU/mL 0.358-3.740 Thyroid Stimulating Hormone IMPERIAL ([facility]) ID Date Data Source [id number] 02/12/2021 10:50:00 AM EDT IMPERIAL ([facility]) Name Value Range Interpretation Code Description Data Huma rce(s) Supporting Document(s) prostatic specific Ag monitor 0.30 NG/mL < 4.00 Prosta tic Specific Ag Monitor IMPERIAL ([facility]) ID Date Data Source [id number] 02/12/2021 10:50:00 AM EDT [facility]) Name Value Range Interpretation Code Description Data Huma rce(s) Supporting Document(s) testosterone 536 NG/dL [phone] Testosterone ALEX ([facility]) ID Date Data Source [id number] 02/12/2021 10:50:00 AM EDT [facility]) Name Value Range Interpretation Code Description Data Huma rce(s) Supporting Document(s) glomerular filtration rate > 60.0 >56 Glomerula r Filtration Rate IMPERIAL ([facility]) creatinine for GFR 1.11 mg/dL 0.70-1.30 Creatinine for GF R ALEX ([facility]) glucose, fasting 94 mg/dL 70-100 Glucose, Fasting AT [facility] ([facility]) blood urea nitrogen 13 mg/dL 7-18 Blood Urea Nitro gen ALEX ([facility]) sodium level 135 mEq/L 136-145 Below low normal Sodium Level ATHE NA ([facility]) chloride level 101 mEq/L 98-107 Chloride Level ALEX ([facility]) carbon dioxide level 28 mEq/L 21-32 Carbon Dioxide Level ALEX ([facility]) potassium serum 4.3 mEq/L 3.5-5.1 Potassium Serum ATHE NA ([facility]) AST/SGOT 20 U/L 7-37 AST/SGOT ALEX ([facility]) calcium level 8.8 mg/dL 8.5-10.1 Calcium Level ALEX ( [facility]) alkaline phosphatase 114 U/L 45-117 Alkaline Phosph atase ALEX ([facility]) ALT/SGPT 18 U/L 12-78 ALT/SGPT ALEX ([facility]) anion gap 6 mEq/L 8-16 Below low normal Anion Gap ALEX ( [facility]) albumin 3.6 gm/dL 3.2-5.2 Albumin ALEX ([facility]) albumin/globulin ratio Albumin/globu karlee Ratio ALEX ([facility]) total protein 7.9 gm/dL 6.4-8.2 Total Protein ALEX ( [facility]) bilirubin,total 0.3 mg/dL 0.2-1.0 Bilirubin,total ATHE ([facility]) ID Date Data Source [id number] 02/12/2021 10:50:00 AM EDT IMPERIAL ([facility]) Name Value Range Interpretation Code Description Data Huma rce(s) Supporting Document(s) white blood count 9.2 10 4.0-10.0 White Blood Count ALEX ([facility]) red blood count 5.60 10 4.30-6.10 Red Blood Count ATHE ([facility]) mean corpuscular hemoglobin 23.9 pg 27.0-33.0 Below low nor mal Mean Corpuscular Hemoglobin ALEX ([facility]) mean corpuscular volume 79.8 fL 80.0-96.0 Below low normal Mean Corpuscular Volume ALEX ([facility]) hematocrit 44.7 % 42.0-52.0 Hematocrit ALEX ([facility]) hemoglobin 13.4 g/dL 13.5-17.5 Below low normal Hemoglobin ALEX ( [facility]) neutrophils % 62.2 % 36.0-66.0 Neutrophils % ALEX ( [facility]) mean corpuscular HGB conc 30.0 g/dL 32.0-36.5 Below low tino l Mean Corpuscular HGB Conc ALEX ([facility]) red cell distribution width 15.3 % 11.5-14.5 Above high no rmal Red Cell Distribution Width ALEX ([facility]) platelet count, automated 298 10 150-450 Platelet C ount, Automated ALEX ([facility]) eos % 1.0 % 0.0-3.0 Eos % ALEX ([facility]) lymph % 27.4 % 24.0-44.0 Lymph % ALEX ([facility]) mono % 8.8 % 2.0-8.0 Above high normal [place] % ALEX ([facility]) neutrophils # 5.7 10 1.5-8.5 Neutrophils # ALEX ( [facility]) baso % 0.3 % 0.0-1.0 Baso % ALEX ([facility]) nucleated red blood cell % 0.0 % 0-0 Nucleated Red Blood Cell % ALEX ([facility]) immature granulocyte % 0.3 % 0-3.0 Immature Gran ulocyte % ALEX ([facility]) mono # 0.8 10 0.0-0.8 [place] # ALEX ([facility]) eos # 0.1 10 0.0-0.5 Eos # ALEX ([facility]) baso # 0.0 10 0.0-0.2 Baso # ALEX ([facility]) lymph # 2.5 10 1.5-5.0 Lymph # ALEX ([facility]) ID Date Data Source [id number] 02/12/2021 10:50:00 AM EDT IMPERIAL ([facility]) Name Value Range Interpretation Code Description Data Huma rce(s) Supporting Document(s) estimated average glucose 117 mg/dL 60-110 Above high norm al Estimated Average Glucose IMPERIAL ([facility]) Hemoglobin A1c/Hemoglobin.total in Blood 5.7 % Hemoglobin a1C IMPERIAL ([facility]) ID Date Data Source [id number] 02/12/2021 10:50:00 AM EDT [facility]) Name Value Range Interpretation Code Description Data Huma rce(s) Supporting Document(s) thyroid stimulating hormone 1.980 uIU/mL 0.358-3.740 Thyroid Stimulating Hormone IMPERIAL ([facility]) ID Date Data Source [id number] 02/12/2021 10:50:00 AM EDT [facility]) Name Value Range Interpretation Code Description Data Huma rce(s) Supporting Document(s) prostatic specific Ag monitor 0.30 NG/mL < 4.00 Prosta tic Specific Ag Monitor IMPERIAL ([facility]) ID Date Data Source [id number] 02/12/2021 10:50:00 AM EDT [facility]) Name Value Range Interpretation Code Description Data Huma rce(s) Supporting Document(s) testosterone 536 NG/dL [phone] Testosterone ALEX ([facility]) ID Date Data Source [id number] 02/12/2021 10:50:00 AM EDT [facility]) Name Value Range Interpretation Code Description Data Huma rce(s) Supporting Document(s) blood urea nitrogen 13 mg/dL 7-18 Blood Urea Nitro gen IMPERIAL ([facility]) creatinine for GFR 1.11 mg/dL 0.70-1.30 Creatinine for GF R ALEX ([facility]) glucose, fasting 94 mg/dL 70-100 Glucose, Fasting AT [facility] ([facility]) glomerular filtration rate > 60.0 >56 Glomerula r Filtration Rate ALEX ([facility]) chloride level 101 mEq/L 98-107 Chloride Level ALEX ([facility]) potassium serum 4.3 mEq/L 3.5-5.1 Potassium Serum ATHE NA ([facility]) sodium level 135 mEq/L 136-145 Below low normal Sodium Level ATHE NA ([facility]) AST/SGOT 20 U/L 7-37 AST/SGOT ALEX ([facility]) carbon dioxide level 28 mEq/L 21-32 Carbon Dioxide Level ALEX ([facility]) calcium level 8.8 mg/dL 8.5-10.1 Calcium Level ALEX ( [facility]) anion gap 6 mEq/L 8-16 Below low normal Anion Gap ALEX ( [facility]) alkaline phosphatase 114 U/L 45-117 Alkaline Phosph atase ALEX ([facility]) ALT/SGPT 18 U/L 12-78 ALT/SGPT ALEX ([facility]) total protein 7.9 gm/dL 6.4-8.2 Total Protein ALEX ( [facility]) bilirubin,total 0.3 mg/dL 0.2-1.0 Bilirubin,total ATHE ([facility]) albumin 3.6 gm/dL 3.2-5.2 Albumin ALEX ([facility]) albumin/globulin ratio Albumin/globu karlee Ratio ALEX ([facility]) ID Date Data Source [id number] 02/12/2021 10:50:00 AM EDT IMPERIAL ([facility]) Name Value Range Interpretation Code Description Data Huma rce(s) Supporting Document(s) hemoglobin 13.4 g/dL 13.5-17.5 Below low normal Hemoglobin ALEX ( [facility]) white blood count 9.2 10 4.0-10.0 White Blood Count ALEX ([facility]) red blood count 5.60 10 4.30-6.10 Red Blood Count ATHE NA ([facility]) mean corpuscular volume 79.8 fL 80.0-96.0 Below low normal Mean Corpuscular Volume ALEX ([facility]) mean corpuscular hemoglobin 23.9 pg 27.0-33.0 Below low nor mal Mean Corpuscular Hemoglobin ALEX ([facility]) hematocrit 44.7 % 42.0-52.0 Hematocrit ALEX ([facility]) mean corpuscular HGB conc 30.0 g/dL 32.0-36.5 Below low tino l Mean Corpuscular HGB Conc ALEX ([facility]) neutrophils % 62.2 % 36.0-66.0 Neutrophils % ALEX ( [facility]) red cell distribution width 15.3 % 11.5-14.5 Above high no rmal Red Cell Distribution Width ALEX ([facility]) platelet count, automated 298 10 150-450 Platelet C ount, Automated ALEX ([facility]) eos % 1.0 % 0.0-3.0 Eos % ALEX ([facility]) mono % 8.8 % 2.0-8.0 Above high normal [place] % ALEX ([facility]) lymph % 27.4 % 24.0-44.0 Lymph % ALEX ([facility]) baso % 0.3 % 0.0-1.0 Baso % ALEX ([facility]) nucleated red blood cell % 0.0 % 0-0 Nucleated Red Blood Cell % ALEX ([facility]) neutrophils # 5.7 10 1.5-8.5 Neutrophils # ALEX ( [facility]) lymph # 2.5 10 1.5-5.0 Lymph # IMPERIAL ([facility]) immature granulocyte % 0.3 % 0-3.0 Immature Gran ulocyte % ALEX ([facility]) baso # 0.0 10 0.0-0.2 Baso # ALEX ([facility]) eos # 0.1 10 0.0-0.5 Eos # ALEX ([facility]) mono # 0.8 10 0.0-0.8 [place] # ALEX ([facility]) ID Date Data Source [id number] 02/12/2021 10:50:00 AM EDT IMPERIAL ([facility]) Name Value Range Interpretation Code Description Data Huma rce(s) Supporting Document(s) estimated average glucose 117 mg/dL 60-110 Above high norm al Estimated Average Glucose IMPERIAL ([facility]) Hemoglobin A1c/Hemoglobin.total in Blood 5.7 % Hemoglobin a1C IMPERIAL ([facility]) ID Date Data Source [id number] 02/12/2021 10:50:00 AM EDT [facility]) Name Value Range Interpretation Code Description Data Huma rce(s) Supporting Document(s) thyroid stimulating hormone 1.980 uIU/mL 0.358-3.740 Thyroid Stimulating Hormone IMPERIAL ([facility]) ID Date Data Source [id number] 02/12/2021 10:50:00 AM EDT [facility]) Name Value Range Interpretation Code Description Data Huma rce(s) Supporting Document(s) prostatic specific Ag monitor 0.30 NG/mL < 4.00 Prosta tic Specific Ag Monitor [facility]) ID Date Data Source [id number] 02/12/2021 10:50:00 AM EDT IMPERIAL ([facility]) Name Value Range Interpretation Code Description Data Huma rce(s) Supporting Document(s) testosterone 536 NG/dL [phone] Testosterone ALEX ([facility]) ID Date Data Source [id number] 02/12/2021 10:50:00 AM EDT [facility]) Name Value Range Interpretation Code Description Data Huma rce(s) Supporting Document(s) creatinine for GFR 1.11 mg/dL 0.70-1.30 Creatinine for GF R ALEX ([facility]) blood urea nitrogen 13 mg/dL 7-18 Blood Urea Nitro gen ALEX ([facility]) glucose, fasting 94 mg/dL 70-100 Glucose, Fasting AT [facility] ([facility]) chloride level 101 mEq/L 98-107 Chloride Level ALEX ([facility]) potassium serum 4.3 mEq/L 3.5-5.1 Potassium Serum ATHE NA ([facility]) sodium level 135 mEq/L 136-145 Below low normal Sodium Level ATHE NA ([facility]) glomerular filtration rate > 60.0 >56 Glomerula r Filtration Rate ALEX ([facility]) ALT/SGPT 18 U/L 12-78 ALT/SGPT ALEX ([facility]) anion gap 6 mEq/L 8-16 Below low normal Anion Gap ALEX ( [facility]) calcium level 8.8 mg/dL 8.5-10.1 Calcium Level ALEX ( [facility]) carbon dioxide level 28 mEq/L 21-32 Carbon Dioxide Level ALEX ([facility]) AST/SGOT 20 U/L 7-37 AST/SGOT ALEX ([facility]) alkaline phosphatase 114 U/L 45-117 Alkaline Phosph atase ALEX ([facility]) total protein 7.9 gm/dL 6.4-8.2 Total Protein ALEX ( [facility]) albumin 3.6 gm/dL 3.2-5.2 Albumin ALEX ([facility]) bilirubin,total 0.3 mg/dL 0.2-1.0 Bilirubin,total ATHE ([facility]) albumin/globulin ratio Albumin/globu karlee Ratio ALEX ([facility]) ID Date Data Source [id number] 02/12/2021 10:50:00 AM EDT ALEX ([facility]) Name Value Range Interpretation Code Description Data Huma rce(s) Supporting Document(s) red blood count 5.60 10 4.30-6.10 Red Blood Count ATHE ([facility]) white blood count 9.2 10 4.0-10.0 White Blood Count ALEX ([facility]) hemoglobin 13.4 g/dL 13.5-17.5 Below low normal Hemoglobin LAEX ( [facility]) hematocrit 44.7 % 42.0-52.0 Hematocrit ALEX ([facility]) mean corpuscular volume 79.8 fL 80.0-96.0 Below low normal Mean Corpuscular Volume ALEX ([facility]) red cell distribution width 15.3 % 11.5-14.5 Above high no rmal Red Cell Distribution Width ALEX ([facility]) mean corpuscular HGB conc 30.0 g/dL 32.0-36.5 Below low tino l Mean Corpuscular HGB Conc ALEX ([facility]) mean corpuscular hemoglobin 23.9 pg 27.0-33.0 Below low nor mal Mean Corpuscular Hemoglobin ALEX ([facility]) platelet count, automated 298 10 150-450 Platelet C ount, Automated ALEX ([facility]) eos % 1.0 % 0.0-3.0 Eos % ALEX ([facility]) mono % 8.8 % 2.0-8.0 Above high normal [place] % IMPERIAL ([facility]) neutrophils % 62.2 % 36.0-66.0 Neutrophils % IMPERIAL ( [facility]) lymph % 27.4 % 24.0-44.0 Lymph % IMPERIAL ([facility]) nucleated red blood cell % 0.0 % 0-0 Nucleated Red Blood Cell % IMPERIAL ([facility]) immature granulocyte % 0.3 % 0-3.0 Immature Gran ulocyte % ALEX ([facility]) baso % 0.3 % 0.0-1.0 Baso % IMPERIAL ([facility]) neutrophils # 5.7 10 1.5-8.5 Neutrophils # IMPERIAL ( [facility]) lymph # 2.5 10 1.5-5.0 Lymph # ALEX ([facility]) eos # 0.1 10 0.0-0.5 Eos # ALEX ([facility]) mono # 0.8 10 0.0-0.8 [place] # ALEX ([facility]) baso # 0.0 10 0.0-0.2 Baso # ALEX ([facility]) ID Date Data Source [id number] 02/12/2021 10:50:00 AM EDT IMPERIAL ([facility]) Name Value Range Interpretation Code Description Data Huma rce(s) Supporting Document(s) estimated average glucose 117 mg/dL 60-110 Above high norm al Estimated Average Glucose IMPERIAL ([facility]) Hemoglobin A1c/Hemoglobin.total in Blood 5.7 % Hemoglobin a1C IMPERIAL ([facility]) ID Date Data Source [id number] 02/12/2021 10:50:00 AM EDT IMPERIAL ([facility]) Name Value Range Interpretation Code Description Data Huma rce(s) Supporting Document(s) thyroid stimulating hormone 1.980 uIU/mL 0.358-3.740 Thyroid Stimulating Hormone IMPERIAL ([facility]) ID Date Data Source [id number] 02/12/2021 10:50:00 AM EDT IMPERIAL ([facility]) Name Value Range Interpretation Code Description Data Huma rce(s) Supporting Document(s) prostatic specific Ag monitor 0.30 NG/mL < 4.00 Prosta tic Specific Ag Monitor IMPERIAL ([facility]) ID Date Data Source [id number] 02/12/2021 10:50:00 AM EDT IMPERIAL ([facility]) Name Value Range Interpretation Code Description Data Huma rce(s) Supporting Document(s) testosterone 536 NG/dL [phone] Testosterone ALEX ([facility]) ID Date Data Source [id number] 02/12/2021 10:50:00 AM EDT [facility]) Name Value Range Interpretation Code Description Data Huma rce(s) Supporting Document(s) glucose, fasting 94 mg/dL 70-100 Glucose, Fasting AT [facility] ([facility]) glomerular filtration rate > 60.0 >56 Glomerula r Filtration Rate ALEX ([facility]) creatinine for GFR 1.11 mg/dL 0.70-1.30 Creatinine for GF R ALEX ([facility]) blood urea nitrogen 13 mg/dL 7-18 Blood Urea Nitro gen ALEX ([facility]) potassium serum 4.3 mEq/L 3.5-5.1 Potassium Serum ATHE NA ([facility]) chloride level 101 mEq/L 98-107 Chloride Level ALEX ([facility]) carbon dioxide level 28 mEq/L 21-32 Carbon Dioxide Level ALEX ([facility]) sodium level 135 mEq/L 136-145 Below low normal Sodium Level ATHE ([facility]) calcium level 8.8 mg/dL 8.5-10.1 Calcium Level ALEX ( [facility]) anion gap 6 mEq/L 8-16 Below low normal Anion Gap ALEX ( [facility]) ALT/SGPT 18 U/L 12-78 ALT/SGPT ALEX ([facility]) AST/SGOT 20 U/L 7-37 AST/SGOT ALEX ([facility]) alkaline phosphatase 114 U/L 45-117 Alkaline Phosph atase ALEX ([facility]) albumin/globulin ratio Albumin/globu karlee Ratio ALEX ([facility]) total protein 7.9 gm/dL 6.4-8.2 Total Protein ALEX ( [facility]) bilirubin,total 0.3 mg/dL 0.2-1.0 Bilirubin,total ATHE ([facility]) albumin 3.6 gm/dL 3.2-5.2 Albumin ALEX ([facility]) ID Date Data Source [id number] 02/12/2021 10:50:00 AM EDT IMPERIAL ([facility]) Name Value Range Interpretation Code Description Data Huma rce(s) Supporting Document(s) white blood count 9.2 10 4.0-10.0 White Blood Count ALEX ([facility]) hemoglobin 13.4 g/dL 13.5-17.5 Below low normal Hemoglobin ALEX ( [facility]) red blood count 5.60 10 4.30-6.10 Red Blood Count ATHE NA ([facility]) mean corpuscular hemoglobin 23.9 pg 27.0-33.0 Below low nor mal Mean Corpuscular Hemoglobin ALEX ([facility]) hematocrit 44.7 % 42.0-52.0 Hematocrit ALEX ([facility]) mean corpuscular volume 79.8 fL 80.0-96.0 Below low normal Mean Corpuscular Volume ALEX ([facility]) mean corpuscular HGB conc 30.0 g/dL 32.0-36.5 Below low tino l Mean Corpuscular HGB Conc ALEX ([facility]) red cell distribution width 15.3 % 11.5-14.5 Above high no rmal Red Cell Distribution Width ALEX ([facility]) lymph % 27.4 % 24.0-44.0 Lymph % ALEX ([facility]) platelet count, automated 298 10 150-450 Platelet C ount, Automated ALEX ([facility]) neutrophils % 62.2 % 36.0-66.0 Neutrophils % ALEX ( [facility]) mono % 8.8 % 2.0-8.0 Above high normal [place] % ALEX ([facility]) eos % 1.0 % 0.0-3.0 Eos % ALEX ([facility]) baso % 0.3 % 0.0-1.0 Baso % ALEX ([facility]) lymph # 2.5 10 1.5-5.0 Lymph # ALEX ([facility]) neutrophils # 5.7 10 1.5-8.5 Neutrophils # IMPERIAL ( [facility]) nucleated red blood cell % 0.0 % 0-0 Nucleated Red Blood Cell % ALEX ([facility]) immature granulocyte % 0.3 % 0-3.0 Immature Gran ulocyte % ALEX ([facility]) baso # 0.0 10 0.0-0.2 Baso # ALEX ([facility]) eos # 0.1 10 0.0-0.5 Eos # ALEX ([facility]) mono # 0.8 10 0.0-0.8 [place] # ALEX ([facility]) ID Date Data Source [id number] 02/12/2021 10:50:00 AM EDT ALEX ([facility]) Name Value Range Interpretation Code Description Data Huma rce(s) Supporting Document(s) estimated average glucose 117 mg/dL 60-110 Above high norm al Estimated Average Glucose IMPERIAL ([facility]) Hemoglobin A1c/Hemoglobin.total in Blood 5.7 % Hemoglobin a1C IMPERIAL ([facility]) ID Date Data Source [id number] 02/12/2021 10:50:00 AM EDT IMPERIAL ([facility]) Name Value Range Interpretation Code Description Data Huma rce(s) Supporting Document(s) thyroid stimulating hormone 1.980 uIU/mL 0.358-3.740 Thyroid Stimulating Hormone IMPERIAL ([facility]) ID Date Data Source [id number] 02/12/2021 10:50:00 AM EDT IMPERIAL ([facility]) Name Value Range Interpretation Code Description Data Huma rce(s) Supporting Document(s) prostatic specific Ag monitor 0.30 NG/mL < 4.00 Prosta tic Specific Ag Monitor IMPERIAL ([facility]) ID Date Data Source [id number] 02/12/2021 10:50:00 AM EDT IMPERIAL ([facility]) Name Value Range Interpretation Code Description Data Huma rce(s) Supporting Document(s) testosterone 536 NG/dL 241-827 Testosterone ALEX ([facility]) ID Date Data Source [id number] 02/12/2021 10:50:00 AM EDT ALEX ([facility]) Name Value Range Interpretation Code Description Data Huma rce(s) Supporting Document(s) glucose, fasting 94 mg/dL 70-100 Glucose, Fasting AT [facility] ([facility]) glomerular filtration rate > 60.0 >56 Glomerula r Filtration Rate ALEX ([facility]) blood urea nitrogen 13 mg/dL 7-18 Blood Urea Nitro gen AELX ([facility]) sodium level 135 mEq/L 136-145 Below low normal Sodium Level ATHE NA ([facility]) creatinine for GFR 1.11 mg/dL 0.70-1.30 Creatinine for GF R ALEX ([facility]) carbon dioxide level 28 mEq/L 21-32 Carbon Dioxide Level ALEX ([facility]) chloride level 101 mEq/L 98-107 Chloride Level ALEX ([facility]) potassium serum 4.3 mEq/L 3.5-5.1 Potassium Serum ATHE NA ([facility]) anion gap 6 mEq/L 8-16 Below low normal Anion Gap ALEX ( [facility]) calcium level 8.8 mg/dL 8.5-10.1 Calcium Level ALEX ( [facility]) AST/SGOT 20 U/L 7-37 AST/SGOT ALEX ([facility]) ALT/SGPT 18 U/L 12-78 ALT/SGPT ALEX ([facility]) alkaline phosphatase 114 U/L 45-117 Alkaline Phosph atase ALEX ([facility]) total protein 7.9 gm/dL 6.4-8.2 Total Protein ALEX ( [facility]) albumin 3.6 gm/dL 3.2-5.2 Albumin ALEX ([facility]) albumin/globulin ratio Albumin/globu karlee Ratio ALEX ([facility]) bilirubin,total 0.3 mg/dL 0.2-1.0 Bilirubin,total ATHE ([facility]) ID Date Data Source [id number] 02/12/2021 10:50:00 AM EDT IMPERIAL ([facility]) Name Value Range Interpretation Code Description Data Huma rce(s) Supporting Document(s) white blood count 9.2 10 4.0-10.0 White Blood Count ALEX ([facility]) hemoglobin 13.4 g/dL 13.5-17.5 Below low normal Hemoglobin ALEX ( [facility]) hematocrit 44.7 % 42.0-52.0 Hematocrit ALEX ([facility]) red blood count 5.60 10 4.30-6.10 Red Blood Count ATHE NA ([facility]) red cell distribution width 15.3 % 11.5-14.5 Above high no rmal Red Cell Distribution Width ALEX ([facility]) mean corpuscular hemoglobin 23.9 pg 27.0-33.0 Below low nor mal Mean Corpuscular Hemoglobin ALEX ([facility]) mean corpuscular volume 79.8 fL 80.0-96.0 Below low normal Mean Corpuscular Volume ALEX ([facility]) mean corpuscular HGB conc 30.0 g/dL 32.0-36.5 Below low tino l Mean Corpuscular HGB Conc ALEX ([facility]) neutrophils % 62.2 % 36.0-66.0 Neutrophils % ALEX ( [facility]) platelet count, automated 298 10 150-450 Platelet C ount, Automated ALEX ([facility]) lymph % 27.4 % 24.0-44.0 Lymph % ALEX ([facility]) immature granulocyte % 0.3 % 0-3.0 Immature Gran ulocyte % ALEX ([facility]) mono % 8.8 % 2.0-8.0 Above high normal [place] % ALEX ([facility]) baso % 0.3 % 0.0-1.0 Baso % ALEX ([facility]) eos % 1.0 % 0.0-3.0 Eos % ALEX ([facility]) mono # 0.8 10 0.0-0.8 [place] # ALEX ([facility]) nucleated red blood cell % 0.0 % 0-0 Nucleated Red Blood Cell % ALEX ([facility]) neutrophils # 5.7 10 1.5-8.5 Neutrophils # ALEX ( [facility]) lymph # 2.5 10 1.5-5.0 Lymph # ALEX ([facility]) eos # 0.1 10 0.0-0.5 Eos # ALEX ([facility]) baso # 0.0 10 0.0-0.2 Baso # ALEX ([facility]) ID Date Data Source [id number] 02/12/2021 10:50:00 AM EDT IMPERIAL ([facility]) Name Value Range Interpretation Code Description Data Huma rce(s) Supporting Document(s) prostatic specific Ag monitor 0.30 NG/mL < 4.00 Prosta tic Specific Ag Monitor IMPERIAL ([facility]) ID Date Data Source [id number] 02/12/2021 10:50:00 AM EDT IMPERIAL ([facility]) Name Value Range Interpretation Code Description Data Huma rce(s) Supporting Document(s) testosterone 536 NG/dL 241-827 Testosterone ALEX ([facility]) ID Date Data Source [id number] 02/12/2021 10:50:00 AM EDT [facility]) Name Value Range Interpretation Code Description Data Huma rce(s) Supporting Document(s) glucose, fasting 94 mg/dL 70-100 Glucose, Fasting AT [facility]) blood urea nitrogen 13 mg/dL 7-18 Blood Urea Nitro gen IMPERIAL ([facility]) sodium level 135 mEq/L 136-145 Below low normal Sodium Level ATHE NA ([facility]) potassium serum 4.3 mEq/L 3.5-5.1 Potassium Serum ATHE NA ([facility]) glomerular filtration rate > 60.0 >56 Glomerula r Filtration Rate IMPERIAL ([facility]) creatinine for GFR 1.11 mg/dL 0.70-1.30 Creatinine for GF R IMPERIAL ([facility]) carbon dioxide level 28 mEq/L 21-32 Carbon Dioxide Level ALEX ([facility]) calcium level 8.8 mg/dL 8.5-10.1 Calcium Level ALEX ( [facility]) AST/SGOT 20 U/L 7-37 AST/SGOT ALEX ([facility]) chloride level 101 mEq/L 98-107 Chloride Level ALEX ([facility]) anion gap 6 mEq/L 8-16 Below low normal Anion Gap ALEX ( [facility]) total protein 7.9 gm/dL 6.4-8.2 Total Protein ALEX ( [facility]) alkaline phosphatase 114 U/L 45-117 Alkaline Phosph atase ALEX ([facility]) albumin 3.6 gm/dL 3.2-5.2 Albumin ALEX ([facility]) ALT/SGPT 18 U/L 12-78 ALT/SGPT ALEX ([facility]) bilirubin,total 0.3 mg/dL 0.2-1.0 Bilirubin,total ATHE ([facility]) albumin/globulin ratio Albumin/globu karlee Ratio ALEX ([facility]) ID Date Data Source [id number] 02/12/2021 10:50:00 AM EDT ALEX ([facility]) Name Value Range Interpretation Code Description Data Huma rce(s) Supporting Document(s) white blood count 9.2 10 4.0-10.0 White Blood Count ALEX ([facility]) red blood count 5.60 10 4.30-6.10 Red Blood Count ATHE ([facility]) mean corpuscular volume 79.8 fL 80.0-96.0 Below low normal Mean Corpuscular Volume ALEX ([facility]) hematocrit 44.7 % 42.0-52.0 Hematocrit ALEX ([facility]) hemoglobin 13.4 g/dL 13.5-17.5 Below low normal Hemoglobin ALEX ( [facility]) red cell distribution width 15.3 % 11.5-14.5 Above high no rmal Red Cell Distribution Width ALEX ([facility]) platelet count, automated 298 10 150-450 Platelet C ount, Automated ALEX ([facility]) mean corpuscular HGB conc 30.0 g/dL 32.0-36.5 Below low tino l Mean Corpuscular HGB Conc ALEX ([facility]) mean corpuscular hemoglobin 23.9 pg 27.0-33.0 Below low nor mal Mean Corpuscular Hemoglobin ALEX ([facility]) mono % 8.8 % 2.0-8.0 Above high normal [place] % ALEX ([facility]) eos % 1.0 % 0.0-3.0 Eos % ALEX ([facility]) lymph % 27.4 % 24.0-44.0 Lymph % IMPERIAL ([facility]) neutrophils % 62.2 % 36.0-66.0 Neutrophils % IMPERIAL ( [facility]) nucleated red blood cell % 0.0 % 0-0 Nucleated Red Blood Cell % IMPERIAL ([facility]) immature granulocyte % 0.3 % 0-3.0 Immature Gran ulocyte % IMPERIAL ([facility]) baso % 0.3 % 0.0-1.0 Baso % ALEX ([facility]) neutrophils # 5.7 10 1.5-8.5 Neutrophils # ALEX ( [facility]) mono # 0.8 10 0.0-0.8 [place] # ALEX ([facility]) lymph # 2.5 10 1.5-5.0 Lymph # ALEX ([facility]) baso # 0.0 10 0.0-0.2 Baso # ALEX ([facility]) eos # 0.1 10 0.0-0.5 Eos # ALEX ([facility]) ID Date Data Source [id number] 02/12/2021 10:50:00 AM EDT IMPERIAL ([facility]) Name Value Range Interpretation Code Description Data Huma rce(s) Supporting Document(s) Hemoglobin A1c/Hemoglobin.total in Blood 5.7 % Hemoglobin a1C IMPERIAL ([facility]) estimated average glucose 117 mg/dL 60-110 Above high norm al Estimated Average Glucose IMPERIAL ([facility]) ID Date Data Source [id number] 02/12/2021 10:50:00 AM EDT [facility]) Name Value Range Interpretation Code Description Data Huma rce(s) Supporting Document(s) thyroid stimulating hormone 1.980 uIU/mL 0.358-3.740 Thyroid Stimulating Hormone IMPERIAL ([facility]) ID Date Data Source [id number] 02/12/2021 10:50:00 AM EDT [facility]) Name Value Range Interpretation Code Description Data Huma rce(s) Supporting Document(s) prostatic specific Ag monitor 0.30 NG/mL < 4.00 Prosta tic Specific Ag Monitor IMPERIAL ([facility]) ID Date Data Source [id number] 02/12/2021 10:50:00 AM EDT IMPERIAL ([facility]) Name Value Range Interpretation Code Description Data Huma rce(s) Supporting Document(s) testosterone 536 NG/dL [phone] Testosterone ALEX ([facility]) ID Date Data Source [id number] 02/12/2021 10:50:00 AM EDT [facility]) Name Value Range Interpretation Code Description Data Huma rce(s) Supporting Document(s) creatinine for GFR 1.11 mg/dL 0.70-1.30 Creatinine for GF R IMPERIAL ([facility]) glucose, fasting 94 mg/dL 70-100 Glucose, Fasting AT [facility]) blood urea nitrogen 13 mg/dL 7-18 Blood Urea Nitro gen ALEX ([facility]) sodium level 135 mEq/L 136-145 Below low normal Sodium Level ATHE ([facility]) potassium serum 4.3 mEq/L 3.5-5.1 Potassium Serum ATHE NA ([facility]) glomerular filtration rate > 60.0 >56 Glomerula r Filtration Rate IMPERIAL ([facility]) anion gap 6 mEq/L 8-16 Below low normal Anion Gap ALEX ( [facility]) carbon dioxide level 28 mEq/L 21-32 Carbon Dioxide Level ALEX ([facility]) calcium level 8.8 mg/dL 8.5-10.1 Calcium Level ALEX ( [facility]) chloride level 101 mEq/L 98-107 Chloride Level ALEX ([facility]) bilirubin,total 0.3 mg/dL 0.2-1.0 Bilirubin,total ATHE NA ([facility]) AST/SGOT 20 U/L 7-37 AST/SGOT ALEX ([facility]) ALT/SGPT 18 U/L 12-78 ALT/SGPT ALEX ([facility]) alkaline phosphatase 114 U/L 45-117 Alkaline Phosph atase ALEX ([facility]) albumin 3.6 gm/dL 3.2-5.2 Albumin ALEX ([facility]) albumin/globulin ratio Albumin/globu karlee Ratio ALEX ([facility]) total protein 7.9 gm/dL 6.4-8.2 Total Protein ALEX ( [facility]) ID Date Data Source [id number] 02/12/2021 10:50:00 AM EDT ALEX ([facility]) Name Value Range Interpretation Code Description Data Huma rce(s) Supporting Document(s) red blood count 5.60 10 4.30-6.10 Red Blood Count ATHE ([facility]) white blood count 9.2 10 4.0-10.0 White Blood Count ALEX ([facility]) hematocrit 44.7 % 42.0-52.0 Hematocrit ALEX ([facility]) mean corpuscular volume 79.8 fL 80.0-96.0 Below low normal Mean Corpuscular Volume ALEX ([facility]) hemoglobin 13.4 g/dL 13.5-17.5 Below low normal Hemoglobin ALEX ( [facility]) mean corpuscular hemoglobin 23.9 pg 27.0-33.0 Below low nor mal Mean Corpuscular Hemoglobin ALEX ([facility]) platelet count, automated 298 10 150-450 Platelet C ount, Automated ALEX ([facility]) mean corpuscular HGB conc 30.0 g/dL 32.0-36.5 Below low tino l Mean Corpuscular HGB Conc ALEX ([facility]) red cell distribution width 15.3 % 11.5-14.5 Above high no rmal Red Cell Distribution Width ALEX ([facility]) neutrophils % 62.2 % 36.0-66.0 Neutrophils % ALEX ( [facility]) mono % 8.8 % 2.0-8.0 Above high normal [place] % IMPERIAL ([facility]) lymph % 27.4 % 24.0-44.0 Lymph % IMPERIAL ([facility]) eos % 1.0 % 0.0-3.0 Eos % IMPERIAL ([facility]) baso % 0.3 % 0.0-1.0 Baso % IMPERIAL ([facility]) immature granulocyte % 0.3 % 0-3.0 Immature Gran ulocyte % IMPERIAL ([facility]) nucleated red blood cell % 0.0 % 0-0 Nucleated Red Blood Cell % IMPERIAL ([facility]) mono # 0.8 10 0.0-0.8 [place] # IMPERIAL ([facility]) neutrophils # 5.7 10 1.5-8.5 Neutrophils # IMPERIAL ( [facility]) lymph # 2.5 10 1.5-5.0 Lymph # IMPERIAL ([facility]) baso # 0.0 10 0.0-0.2 Baso # IMPERIAL ([facility]) eos # 0.1 10 0.0-0.5 Eos # IMPERIAL ([facility]) ID Date Data Source [id number] 02/12/2021 10:50:00 AM EDT IMPERIAL ([facility]) Name Value Range Interpretation Code Description Data Huma rce(s) Supporting Document(s) Hemoglobin A1c/Hemoglobin.total in Blood 5.7 % Hemoglobin a1C IMPERIAL ([facility]) estimated average glucose 117 mg/dL 60-110 Above high norm al Estimated Average Glucose IMPERIAL ([facility]) ID Date Data Source [id number] 02/12/2021 10:50:00 AM EDT IMPERIAL ([facility]) Name Value Range Interpretation Code Description Data Huma rce(s) Supporting Document(s) thyroid stimulating hormone 1.980 uIU/mL 0.358-3.740 Thyroid Stimulating Hormone IMPERIAL ([facility]) ID Date Data Source [id number] 02/12/2021 10:50:00 AM EDT IMPERIAL ([facility]) Name Value Range Interpretation Code Description Data Huma rce(s) Supporting Document(s) prostatic specific Ag monitor 0.30 NG/mL < 4.00 Prosta tic Specific Ag Monitor IMPERIAL ([facility]) ID Date Data Source [id number] 02/12/2021 10:50:00 AM EDT IMPERIAL ([facility]) Name Value Range Interpretation Code Description Data Huma rce(s) Supporting Document(s) testosterone 536 NG/dL 241-827 Testosterone ALEX ([facility]) ID Date Data Source [id number] 02/12/2021 10:50:00 AM EDT IMPERIAL ([facility]) Name Value Range Interpretation Code Description Data Huma rce(s) Supporting Document(s) blood urea nitrogen 13 mg/dL 7-18 Blood Urea Nitro gen IMPERIAL ([facility]) creatinine for GFR 1.11 mg/dL 0.70-1.30 Creatinine for GF R IMPERIAL ([facility]) glucose, fasting 94 mg/dL 70-100 Glucose, Fasting AT [facility] ([facility]) glomerular filtration rate > 60.0 >56 Glomerula r Filtration Rate IMPERIAL ([facility]) sodium level 135 mEq/L 136-145 Below low normal Sodium Level ATHE NA ([facility]) potassium serum 4.3 mEq/L 3.5-5.1 Potassium Serum ATHE ([facility]) chloride level 101 mEq/L 98-107 Chloride Level ALEX ([facility]) calcium level 8.8 mg/dL 8.5-10.1 Calcium Level ALEX ( [facility]) carbon dioxide level 28 mEq/L 21-32 Carbon Dioxide Level ALEX ([facility]) anion gap 6 mEq/L 8-16 Below low normal Anion Gap ALEX ( [facility]) AST/SGOT 20 U/L 7-37 AST/SGOT ALEX ([facility]) alkaline phosphatase 114 U/L 45-117 Alkaline Phosph atase ALEX ([facility]) ALT/SGPT 18 U/L 12-78 ALT/SGPT ALEX ([facility]) bilirubin,total 0.3 mg/dL 0.2-1.0 Bilirubin,total ATHE ([facility]) total protein 7.9 gm/dL 6.4-8.2 Total Protein ALEX ( [facility]) albumin 3.6 gm/dL 3.2-5.2 Albumin ALEX ([facility]) albumin/globulin ratio Albumin/globu karlee Ratio ALEX ([facility]) ID Date Data Source [id number] 02/12/2021 10:50:00 AM EDT ALEX ([facility]) Name Value Range Interpretation Code Description Data Huma rce(s) Supporting Document(s) white blood count 9.2 10 4.0-10.0 White Blood Count ALEX ([facility]) red blood count 5.60 10 4.30-6.10 Red Blood Count ATHE ([facility]) hematocrit 44.7 % 42.0-52.0 Hematocrit ALEX ([facility]) hemoglobin 13.4 g/dL 13.5-17.5 Below low normal Hemoglobin ALEX ( [facility]) mean corpuscular volume 79.8 fL 80.0-96.0 Below low normal Mean Corpuscular Volume ALEX ([facility]) mean corpuscular hemoglobin 23.9 pg 27.0-33.0 Below low nor mal Mean Corpuscular Hemoglobin ALEX ([facility]) red cell distribution width 15.3 % 11.5-14.5 Above high no rmal Red Cell Distribution Width ALEX ([facility]) mean corpuscular HGB conc 30.0 g/dL 32.0-36.5 Below low tino l Mean Corpuscular HGB Conc IMPERIAL ([facility]) mono % 8.8 % 2.0-8.0 Above high normal [place] % ALEX ([facility]) lymph % 27.4 % 24.0-44.0 Lymph % IMPERIAL ([facility]) platelet count, automated 298 10 150-450 Platelet C ount, Automated IMPERIAL ([facility]) neutrophils % 62.2 % 36.0-66.0 Neutrophils % IMPERIAL ( [facility]) immature granulocyte % 0.3 % 0-3.0 Immature Gran ulocyte % IMPERIAL ([facility]) baso % 0.3 % 0.0-1.0 Baso % IMPERIAL ([facility]) eos % 1.0 % 0.0-3.0 Eos % IMPERIAL ([facility]) nucleated red blood cell % 0.0 % 0-0 Nucleated Red Blood Cell % IMPERIAL ([facility]) neutrophils # 5.7 10 1.5-8.5 Neutrophils # IMPERIAL ( [facility]) lymph # 2.5 10 1.5-5.0 Lymph # IMPERIAL ([facility]) baso # 0.0 10 0.0-0.2 Baso # IMPERIAL ([facility]) eos # 0.1 10 0.0-0.5 Eos # ALEX ([facility]) mono # 0.8 10 0.0-0.8 [place] # IMPERIAL ([facility]) ID Date Data Source [id number] 02/12/2021 10:50:00 AM EDT IMPERIAL ([facility]) Name Value Range Interpretation Code Description Data Huma rce(s) Supporting Document(s) estimated average glucose 117 mg/dL 60-110 Above high norm al Estimated Average Glucose ALEX ([facility]) Hemoglobin A1c/Hemoglobin.total in Blood 5.7 % Hemoglobin a1C ALEX ([facility]) ID Date Data Source [id number] 02/12/2021 10:50:00 AM EDT [facility]) Name Value Range Interpretation Code Description Data Huma rce(s) Supporting Document(s) thyroid stimulating hormone 1.980 uIU/mL 0.358-3.740 Thyroid Stimulating Hormone IMPERIAL ([facility]) ID Date Data Source [id number] 02/12/2021 10:50:00 AM EDT [facility]) Name Value Range Interpretation Code Description Data Huma rce(s) Supporting Document(s) prostatic specific Ag monitor 0.30 NG/mL < 4.00 Prosta tic Specific Ag Monitor IMPERIAL ([facility]) ID Date Data Source [id number] 02/12/2021 10:50:00 AM EDT [facility]) Name Value Range Interpretation Code Description Data Huma rce(s) Supporting Document(s) testosterone 536 NG/dL 241-827 Testosterone ALEX ([facility]) ID Date Data Source [id number] 02/12/2021 10:50:00 AM EDT [facility]) Name Value Range Interpretation Code Description Data Huma rce(s) Supporting Document(s) glucose, fasting 94 mg/dL 70-100 Glucose, Fasting AT [facility]) creatinine for GFR 1.11 mg/dL 0.70-1.30 Creatinine for GF R IMPERIAL ([facility]) glomerular filtration rate > 60.0 >56 Glomerula r Filtration Rate ALEX ([facility]) blood urea nitrogen 13 mg/dL 7-18 Blood Urea Nitro gen ALEX ([facility]) chloride level 101 mEq/L 98-107 Chloride Level IMPERIAL ([facility]) sodium level 135 mEq/L 136-145 Below low normal Sodium Level ATHE NA ([facility]) potassium serum 4.3 mEq/L 3.5-5.1 Potassium Serum ATHE ([facility]) carbon dioxide level 28 mEq/L 21-32 Carbon Dioxide Level ALEX ([facility]) calcium level 8.8 mg/dL 8.5-10.1 Calcium Level ALEX ( [facility]) anion gap 6 mEq/L 8-16 Below low normal Anion Gap ALEX ( [facility]) alkaline phosphatase 114 U/L 45-117 Alkaline Phosph atase ALEX ([facility]) AST/SGOT 20 U/L 7-37 AST/SGOT ALEX ([facility]) ALT/SGPT 18 U/L 12-78 ALT/SGPT ALEX ([facility]) bilirubin,total 0.3 mg/dL 0.2-1.0 Bilirubin,total ATHE ([facility]) total protein 7.9 gm/dL 6.4-8.2 Total Protein ALEX ( [facility]) albumin 3.6 gm/dL 3.2-5.2 Albumin ALEX ([facility]) albumin/globulin ratio Albumin/globu karlee Ratio ALEX ([facility]) ID Date Data Source [id number] 02/12/2021 10:50:00 AM EDT ALEX ([facility]) Name Value Range Interpretation Code Description Data Huma rce(s) Supporting Document(s) white blood count 9.2 10 4.0-10.0 White Blood Count ALEX ([facility]) red blood count 5.60 10 4.30-6.10 Red Blood Count ATHE ([facility]) hemoglobin 13.4 g/dL 13.5-17.5 Below low normal Hemoglobin ALEX ( [facility]) hematocrit 44.7 % 42.0-52.0 Hematocrit ALEX ([facility]) red cell distribution width 15.3 % 11.5-14.5 Above high no rmal Red Cell Distribution Width ALEX ([facility]) mean corpuscular volume 79.8 fL 80.0-96.0 Below low normal Mean Corpuscular Volume ALEX ([facility]) mean corpuscular hemoglobin 23.9 pg 27.0-33.0 Below low nor mal Mean Corpuscular Hemoglobin ALEX ([facility]) mean corpuscular HGB conc 30.0 g/dL 32.0-36.5 Below low tino l Mean Corpuscular HGB Conc ALEX ([facility]) platelet count, automated 298 10 150-450 Platelet C ount, Automated ALEX ([facility]) neutrophils % 62.2 % 36.0-66.0 Neutrophils % ALEX ( [facility]) mono % 8.8 % 2.0-8.0 Above high normal [place] % ALEX ([facility]) eos % 1.0 % 0.0-3.0 Eos % IMPERIAL ([facility]) lymph % 27.4 % 24.0-44.0 Lymph % IMPERIAL ([facility]) immature granulocyte % 0.3 % 0-3.0 Immature Gran ulocyte % ALEX ([facility]) baso % 0.3 % 0.0-1.0 Baso % ALEX ([facility]) nucleated red blood cell % 0.0 % 0-0 Nucleated Red Blood Cell % IMPERIAL ([facility]) neutrophils # 5.7 10 1.5-8.5 Neutrophils # ALEX ( [facility]) eos # 0.1 10 0.0-0.5 Eos # ALEX ([facility]) lymph # 2.5 10 1.5-5.0 Lymph # ALEX ([facility]) mono # 0.8 10 0.0-0.8 [place] # ALEX ([facility]) baso # 0.0 10 0.0-0.2 Baso # ALEX ([facility]) ID Date Data Source [id number] 02/12/2021 10:50:00 AM EDT IMPERIAL ([facility]) Name Value Range Interpretation Code Description Data Huma rce(s) Supporting Document(s) estimated average glucose 117 mg/dL 60-110 Above high norm al Estimated Average Glucose IMPERIAL ([facility]) Hemoglobin A1c/Hemoglobin.total in Blood 5.7 % Hemoglobin a1C [facility]) ID Date Data Source [id number] 02/12/2021 10:50:00 AM EDT ALEX ([facility]) Name Value Range Interpretation Code Description Data Huma rce(s) Supporting Document(s) thyroid stimulating hormone 1.980 uIU/mL 0.358-3.740 Thyroid Stimulating Hormone IMPERIAL ([facility]) ID Date Data Source [id number] 06/27/2020 03:30:00 PM EST [facility]) Name Value Range Interpretation Code Description Data Huma rce(s) Supporting Document(s) SARS-CoV-2 (COVID-19) RNA [Presence] in Respiratory specimen by OC with probe detection detected not detected Abnormal (applies to non-numeric results) Sars Cov 2 RNA [facility]) ID Date Data Source [id number] 06/27/2020 03:30:00 PM EST [facility]) Name Value Range Interpretation Code Description Data Huma rce(s) Supporting Document(s) SARS-CoV-2 (COVID-19) RNA [Presence] in Respiratory specimen by OC with probe detection detected not detected Abnormal (applies to non-numeric results) Sars Cov 2 RNA [facility]) ID Date Data Source [id number] 06/27/2020 03:30:00 PM EST [facility]) Name Value Range Interpretation Code Description Data Huma rce(s) Supporting Document(s) SARS-CoV-2 (COVID-19) RNA [Presence] in Respiratory specimen by OC with probe detection detected not detected Abnormal (applies to non-numeric results) Sars Cov 2 RNA [facility]) ID Date Data Source [id number] 06/27/2020 03:30:00 PM EST [facility]) Name Value Range Interpretation Code Description Data Huma rce(s) Supporting Document(s) SARS-CoV-2 (COVID-19) RNA [Presence] in Respiratory specimen by OC with probe detection detected not detected Abnormal (applies to non-numeric results) Sars Cov 2 RNA [facility]) ID Date Data Source [id number] 06/27/2020 03:30:00 PM EST [facility]) Name Value Range Interpretation Code Description Data Huma rce(s) Supporting Document(s) SARS-CoV-2 (COVID-19) RNA [Presence] in Respiratory specimen by OC with probe detection detected not detected Abnormal (applies to non-numeric results) Sars Cov 2 RNA [facility]) ID Date Data Source [id number] 06/27/2020 03:30:00 PM EST [facility]) Name Value Range Interpretation Code Description Data Huma rce(s) Supporting Document(s) SARS-CoV-2 (COVID-19) RNA [Presence] in Respiratory specimen by OC with probe detection detected not detected Abnormal (applies to non-numeric results) Sars Cov 2 RNA [facility]) ID Date Data Source [id number] 06/27/2020 03:30:00 PM EST [facility]) Name Value Range Interpretation Code Description Data Huma rce(s) Supporting Document(s) SARS-CoV-2 (COVID-19) RNA [Presence] in Respiratory specimen by OC with probe detection detected not detected Abnormal (applies to non-numeric results) [facility] Data Source [id number] 06/27/2020 03:30:00 PM EST [facility]) Name Value Range Interpretation Code Description Data Huma rce(s) Supporting Document(s) SARS-CoV-2 (COVID-19) RNA [Presence] in Respiratory specimen by OC with probe detection detected not detected Abnormal (applies to non-numeric results) Sars Cov 2 RNA [facility]) ID Date Data Source [id number] 06/27/2020 03:30:00 PM EST [facility]) Name Value Range Interpretation Code Description Data Huma rce(s) Supporting Document(s) SARS-CoV-2 (COVID-19) RNA [Presence] in Respiratory specimen by OC with probe detection detected not detected Abnormal (applies to non-numeric results) Sars Cov 2 RNA [facility]) ID Date Data Source [id number] 06/27/2020 03:30:00 PM EST [facility]) Name Value Range Interpretation Code Description Data Huma rce(s) Supporting Document(s) SARS-CoV-2 (COVID-19) RNA [Presence] in Respiratory specimen by OC with probe detection detected not detected Abnormal (applies to non-numeric results) Sars Cov 2 RNA [facility]) ID Date Data Source [id number] 06/27/2020 03:30:00 PM EST [facility]) Name Value Range Interpretation Code Description Data Huma rce(s) Supporting Document(s) SARS-CoV-2 (COVID-19) RNA [Presence] in Respiratory specimen by OC with probe detection detected not detected Abnormal (applies to non-numeric results) [facility] Date Data Source [id number] 06/27/2020 03:30:00 PM EST [facility]) Name Value Range Interpretation Code Description Data Huma rce(s) Supporting Document(s) SARS-CoV-2 (COVID-19) RNA [Presence] in Respiratory specimen by OC with probe detection detected not detected Abnormal (applies to non-numeric results) Sars Cov 2 RNA [facility]) ID Date Data Source [id number] 06/27/2020 03:30:00 PM EST [facility]) Name Value Range Interpretation Code Description Data Huma rce(s) Supporting Document(s) SARS-CoV-2 (COVID-19) RNA [Presence] in Respiratory specimen by OC with probe detection detected not detected Abnormal (applies to non-numeric results) Sars Cov 2 RNA [facility]) ID Date Data Source [id number] 06/27/2020 03:30:00 PM EST [facility]) Name Value Range Interpretation Code Description Data Huma rce(s) Supporting Document(s) SARS-CoV-2 (COVID-19) RNA [Presence] in Respiratory specimen by OC with probe detection detected not detected Abnormal (applies to non-numeric results) Sars Cov 2 RNA [facility]) ID Date Data Source [id number] 06/27/2020 03:30:00 PM EST [facility]) Name Value Range Interpretation Code Description Data Huma rce(s) Supporting Document(s) SARS-CoV-2 (COVID-19) RNA [Presence] in Respiratory specimen by OC with probe detection detected not detected Abnormal (applies to non-numeric results) [facility] Data Source [id number] 06/27/2020 03:30:00 PM EST [facility]) Name Value Range Interpretation Code Description Data Huma rce(s) Supporting Document(s) SARS-CoV-2 (COVID-19) RNA [Presence] in Respiratory specimen by OC with probe detection detected not detected Abnormal (applies to non-numeric results) Sars Cov 2 RNA [facility]) ID Date Data Source [id number] 06/27/2020 03:30:00 PM EST [facility]) Name Value Range Interpretation Code Description Data Huma rce(s) Supporting Document(s) SARS-CoV-2 (COVID-19) RNA [Presence] in Respiratory specimen by OC with probe detection detected not detected Abnormal (applies to non-numeric results) Sars Cov 2 RNA [facility] ([facility]) ID Date Data Source [id number] 06/27/2020 03:30:00 PM EST [facility] ([facility]) Name Value Range Interpretation Code Description Data Huam rce(s) Supporting Document(s) SARS-CoV-2 (COVID-19) RNA [Presence] in Respiratory specimen by OC with probe detection detected not detected Abnormal (applies to non-numeric results) Sars Cov 2 RNA [facility]ERIAL ([facility]) ID Date Data Source [id number] 06/27/2020 03:30:00 PM EST [facility] Name Value Range Interpretation Code Description Data Huma rce(s) Supporting Document(s) SARS-COV-2 RNA RESP QL OC+PROBE [facility] This lab was ordered by [facility] and reported by [facility]. ID Date Data Source [id number] 03/27/2020 02:58:43 PM EDT [facility] Measurements & CalculationsHeight: 72 inches (6 ft. 0 in.) 182.88 cm Weight: 213 pounds 2 oz. 96.88 kg Body Mass Index (BMI): 29.01BMI Interpretation: OverweightBody Surface Area (BSA): 2.19Weight Management Education Done (Nutrition/Physical Activity)Vital SignsTemperature: 97.8F tympanic Pulse Rate: 68 beats/minuteRespiratory Rate: 18 respirations/minuteBlood Pressure: 109/71 right arm sitting automaticO2 Saturation: 95% room airVital Signs performed by: Pravin Nash LPN, March 27, 2020 3:04 PMInitial Intake Information From: patientRoom #: 14Infectious Disease / Travel ScreeningRecent travel for you or any close contacts? NoHave you had any close contact with anyone diagnosed with or under investigation for COVID-19 (coronavirus)? NoFever? NoRespiratory symptoms: cough, cold, congestion, shortness of breath, difficulty breathing? NoLoss of smell? NoLoss of taste? NoSmoking, Tobacco, Vaping or Smoke Exposure StatusSmoke Status: current every day smokerTobacco Use: YesAdv to Quit: YesDo you vape? NoPassive Smoke Exposure: YesHealthcare HistorySince your last office visit...Have you been admitted to the hospital? NoHave you been to an emergency room (ER) or urgent care clinic? Yes - [facility] Emergency room (ER) or urgent care date reported today: 03/12/2020Have you seen another healthcare provider? Yes - pulmonary Have you seen a dentist? Yes - NOCOIntake performed by: Pravin Nash LPN, March 27, 2020 3:00 PMRate Your HealthIn general, would you say your health is? GoodPain AssessmentAre you currently having any pain which... You would like your provider to address? Yes Affects your activity level? YesDepression Screening - PHQ-2Over the last two weeks, have you... Had little interest or pleasure in doing things? Not at all Been feeling down, depressed, or hopeless? Not at all PHQ-2 Score: 0Anxiety Screening - PAULINA-2Over the last two weeks, have you b een... Feeling nervous, anxious, or on edge? Not at all Unable to stop or control worrying? Not at all PAULINA-2 Score: 0Food InsecurityWithin the past year...Did you worry whether your food would run out before you got money to buy more? Never trueWas there a time when the food you bought didn't last and you didn't have money to get more? Never truePatient Learning & Communication Needs Preferred learning style: by experiencePossible barriers: nonePatient's Language used in visit: YesLanguage: citizen of [place] Pain AssessmentPain ScaleNumeric Rating Scale: 5 / 10Location: lower backDuration: 2 weeksFrequency: DailyCharacter/Quality: aching, sharp, stabbing and throbbingIs the pain radiating? NoScreening, Brief Intervention, & Referral to Treatment (SBIRT)Pre- Screening Questions How many times have you have 5 or more drinks in a day? 0How many times have you used an illegal drug or used a prescription medication for a non-medical reason? 0Performed by: Pravin Nash LPN, March 27, 2020 3:01 PM Patient History Medical History:Anxiety DisorderDepressionHTNsubstance abuseCHFSurgical History:left knee surgery 2001bone fusion in neck 2003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, 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right hand, pinky and ring finger surgery (1988)lung biopsy 2019Family History:FH of AnxietyFH DepressionFH DiabetesFH High CholesterolFH HeadachesSocial/Personal History:Smoking History:Patient currently smokes every day.Patient has been counseled to quit. Advised to Quit/Tobacco Education: YesChief Complaintback pain RM 14 History of Present Illness (HPI)There is some confusion about his medications based on the note from Ortho 03/20/20:They list [place] and T3 on his med list. He has not been taking them. 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 It appears that they were not aware that he is also on Lyrica. He threw these away as soon as realized what this was. On a Medrol Dosepak which is helping.They are setting him up with an MRI and are going to disucss surgical options based on this.Transitions of Care InboundProblem ReviewProblem List was reviewed and/or updated during this visit.Medication Reconciliation & ReviewMedication List was reviewed and/or updated during this visit, including review of any oiut-sis-uhbtiha medications, herbal therapies, and/or supplements.Allergy ReviewAllergy List was reviewed and/or updated during this visit.Adult Preventive CareProvider Calculated and Reviewed all Clinical Protocols for patient today. Screening Tobacco Screening: Smoking Status: current every day smoker (03/27/2020) Tobacco Use: Currently (03/27/2020) Advised to Quit: Yes (03/27/2020)Labs/Meds/Other Counseling-Nutrition and Physical Activity:BMI Interpretation: Overweight (03/27/2020) Counseling: Done (03/27/2020) Physical Activity: Done (03/27/2020)Review of Systems General: Denies dizziness, fatigue. Cardiovascular: Denies chest pain. Respiratory: Denies difficulty breathing, shortness of breath. Gastrointestinal: Denies diarrhea, constipation. Genitourinary: Denies urinary incontinence, pain with urination, urinary frequency, urinary urgency. Physical ExamGeneral Appearance: well nourished, well hydrated, no acute distressRespiratory, Auscultation: c lear to auscultation bilaterally; no rales, rhonchi, or wheezesRespiratory, Effort: no intercostal retractions or use of accessory musclesCardiovascular, Auscultation: S1, S2 audible; no murmur, rub, or gallop; RRRPeripheral Circulation: no clubbing, cyanosis, edema, or varicositiesGait & Station: normalSkin, Inspection: no rashes, lesions, or ulcerationsOrientation: oriented to time, place, and personMood & Affect: no depression, anxiety, or agitationJudgment & Insight: intactCare Management Plan Transitions of CareInboundRate Your HealthIn general, would you say your health is? GoodAss essment & Plan Problems:Assessed:Sciatica, left side (ICD-724.3) (HAV28-B79.32) Assessment: Instructions: And spinal stenosis.Seeing Ortho for MRI and to discuss surgical options.Continue current dose of Lyrica and recheck here one month.Patient Instructions/Care Plan: Sciatica- left side: And spinal stenosis.Seeing Ortho for MRI and to discuss surgical options.Continue current dose of Lyrica and recheck here one month. Plan developed in collaboration with patient and/or familyMedications:PANTOPRAZOLE SODIUM 40 MG ORAL TABLET DELAYED RELEASETERBINAFINE HCL 250 MG ORAL TABLETADVAIR DISKUS 250- 50 MCG/DOSE INHALATION AEROSOL POWDER BREATH ACTIVATEDLYRICA 200 MG ORAL CAPSULELEXAPRO 20 MG ORAL TABLETVENTOLIN HFA 108 (90 BASE) MCG/ACT INHALATION AEROSOL SOLUTIONFUROSEMIDE 20 MG ORAL TABLETLISINOPRIL 10 MG ORAL TABLETMedication Changes:Refilled:LYRICA 200 MG ORAL CAPSULE-One po qd. Qty: 30[Capsule] Refills: 1 Method: ElectronicAllergies:No Known Allergies (updated 11/28/2018) Orders:Adult - Ofc Vst, EST, Level III [CPT-45038] Medications:LYRICA 200 MG ORAL CAPSULE (PREGABALIN) One po qd. #30[Capsule] x 1 Route:ORAL Entered and Authorized by: Blayne Mayfield MD Method used: Electronically to [facility] (retail) [address] [place] [address] Note to Pharmacy: Route: ORAL; RxID: [id number] signed by Blayne Mayfield MD on 03/27/2020 at 3:38 PM Name Value Range Interpretation Code Description Data Huma rce(s) Supporting Document(s) Procedure Social History No Information Vital Signs ID Date Data Source UNK Name Value Range Interpretation Code Description Data Source(s) Body height 72 [in_i] 72 [facility]i] [facility] 72 [in_i] 72 [in_i] [facility]LEX ([facility]) Body height 72 [in_i] 72 [in_i] ALEX ([facility]) Body height 72 [in_i] 72 [in_i] ALEX ([facility]) Body height 72 [in_i] 72 [in_i] ALEX ([facility]) Body height 72 [in_i] 72 [in_i] ALEX ([facility]) Diastolic blood pressure 81 mm[Hg] 81 mm[Hg] ALEX ([facility]) Body height 72 [in_i] 72 [in_i] ALEX ([facility]) Body mass index (BMI) [Ratio] 29.1 kg/m2 29.1 k g/m2 ALEX ([facility]) Systolic blood pressure 132 mm[Hg] 132 mm[Hg] A THENA ([facility]) Body weight 3432 [oz_av] 3432 [oz_av] ALEX ([facility]) Body mass index (BMI) [Ratio] 29.1 kg/m2 29.1 k g/m2 ALEX ([facility]) Diastolic blood pressure 81 mm[Hg] 81 mm[Hg] ALEX ([facility]) Body height 72 [in_i] 72 [in_i] ALEX ([facility]) Body weight 3432 [oz_av] 3432 [oz_av] ALEX ([facility]) Systolic blood pressure 132 mm[Hg] 132 [facility]Hg] [facility] Diastolic blood pressure 81 mm[Hg] 81 mm[Hg] ALEX ([facility]) Body height 72 [in_i] 72 [in_i] ALEX ([facility]) Body mass index (BMI) [Ratio] 29.1 kg/m2 29.1 k g/m2 ALEX ([facility]) Systolic blood pressure 132 mm[Hg] 132 mm[Hg] A [facility] ([facility]) Body weight 3432 [oz_av] 3432 [oz_av] ALEX ([facility]) Diastolic blood pressure 81 mm[Hg] 81 mm[Hg] ALEX ([facility]) Body height 72 [in_i] 72 [in_i] ALEX ([facility]) Body mass index (BMI) [Ratio] 29.1 kg/m2 29.1 k g/m2 ALEX ([facility]) Systolic blood pressure 132 mm[Hg] 132 mm[Hg] [facility] Body weight 3432 [oz_av] 3432 [oz_av] ALEX ([facility]) Diastolic blood pressure 81 mm[Hg] 81 mm[Hg] ALEX ([facility]) Body height 72 [in_i] 72 [in_i] ALEX ([facility]) Body mass index (BMI) [Ratio] 29.1 kg/m2 29.1 k g/m2 ALEX ([facility]) Systolic blood pressure 132 mm[Hg] 132 mm[Hg] [facility] Body weight 3432 [oz_av] 3432 [oz_av] ALEX ([facility]) Diastolic blood pressure 81 mm[Hg] 81 mm[Hg] ALEX ([facility]) Body height 72 [in_i] 72 [in_i] ALEX ([facility]) Body mass index (BMI) [Ratio] 29.1 kg/m2 29.1 k g/m2 ALEX ([facility]) Systolic blood pressure 132 mm[Hg] 132 mm[Hg] A THENA ([facility]) Body weight 3432 [oz_av] 3432 [oz_av] ALEX ([facility]) Diastolic blood pressure 81 mm[Hg] 81 mm[Hg] ALEX ([facility]) Body height 72 [in_i] 72 [in_i] ALEX ([facility]) Body mass index (BMI) [Ratio] 29.1 kg/m2 29.1 k g/m2 ALEX ([facility]) Systolic blood pressure 132 mm[Hg] 132 mm[Hg] A THENA ([facility]) Body weight 3432 [oz_av] 3432 [oz_av] ALEX ([facility]) Diastolic blood pressure 74 mm[Hg] 74 mm[Hg] ALEX ([facility]) Body height 72 [in_i] 72 [in_i] ALEX ([facility]) Systolic blood pressure 122 mm[Hg] 122 mm[Hg] A THENA ([facility]) Diastolic blood pressure 74 mm[Hg] 74 mm[Hg] ALEX ([facility]) Body height 72 [in_i] 72 [in_i] ALEX ([facility]) Systolic blood pressure 122 mm[Hg] 122 mm[Hg] A THENA ([facility]) Diastolic blood pressure 74 mm[Hg] 74 mm[Hg] ALEX ([facility]) Body height 72 [in_i] 72 [in_i] ALEX ([facility]) Systolic blood pressure 122 mm[Hg] 122 mm[Hg] A THENA ([facility]) Diastolic blood pressure 74 mm[Hg] 74 mm[Hg] ALEX ([facility]) Body height 72 [in_i] 72 [in_i] ALEX ([facility]) Systolic blood pressure 122 mm[Hg] 122 mm[Hg] A THENA ([facility]) Diastolic blood pressure 74 mm[Hg] 74 mm[Hg] ALEX ([facility]) Body height 72 [in_i] 72 [in_i] ALEX ([facility]) Systolic blood pressure 122 mm[Hg] 122 mm[Hg] [facility] Diastolic blood pressure 74 mm[Hg] 74 mm[Hg] ALEX ([facility]) Body height 72 [in_i] 72 [in_i] ALEX ([facility]) Systolic blood pressure 122 mm[Hg] 122 mm[Hg] A THENA ([facility]) Diastolic blood pressure 74 mm[Hg] 74 mm[Hg] ALEX ([facility]) Body height 72 [in_i] 72 [in_i] ALEX ([facility]) Systolic blood pressure 122 mm[Hg] 122 mm[Hg] [facility] Diastolic blood pressure 74 mm[Hg] 74 mm[Hg] ALEX ([facility]) Body height 72 [in_i] 72 [in_i] ALEX ([facility]) Systolic blood pressure 122 mm[Hg] 122 mm[Hg] [facility] Diastolic blood pressure 73 mm[Hg] 73 mm[Hg] ALEX ([facility]) Body height 72 [in_i] 72 [in_i] ALEX ([facility]) Body mass index (BMI) [Ratio] 28.9 kg/m2 28.9 k g/m2 ALEX ([facility]) Systolic blood pressure 121 mm[Hg] 121 mm[Hg] A THENA ([facility]) Body weight 3408 [oz_av] 3408 [oz_av] ALEX ([facility]) Diastolic blood pressure 73 mm[Hg] 73 mm[Hg] ALEX ([facility]) Body height 72 [in_i] 72 [in_i] ALEX ([facility]) Body mass index (BMI) [Ratio] 28.9 kg/m2 28.9 k g/m2 ALEX ([facility]) Systolic blood pressure 121 mm[Hg] 121 mm[Hg] A THENA ([facility]) Body weight 3408 [oz_av] 3408 [oz_av] ALEX ([facility]) Diastolic blood pressure 73 mm[Hg] 73 mm[Hg] ALEX ([facility]) Body height 72 [in_i] 72 [in_i] ALEX ([facility]) Body mass index (BMI) [Ratio] 28.9 kg/m2 28.9 k g/m2 ALEX ([facility]) Systolic blood pressure 121 mm[Hg] 121 mm[Hg] A THENA ([facility]) Body weight 3408 [oz_av] 3408 [oz_av] ALEX ([facility]) Diastolic blood pressure 73 mm[Hg] 73 mm[Hg] ALEX ([facility]) Body height 72 [in_i] 72 [in_i] ALEX ([facility]) Body mass index (BMI) [Ratio] 28.9 kg/m2 28.9 k g/m2 ALEX ([facility]) Systolic blood pressure 121 mm[Hg] 121 mm[Hg] A THENA ([facility]) Body weight 3408 [oz_av] 3408 [oz_av] ALEX ([facility]) Diastolic blood pressure 73 mm[Hg] 73 mm[Hg] ALEX ([facility]) Body height 72 [in_i] 72 [in_i] ALEX ([facility]) Body mass index (BMI) [Ratio] 28.9 kg/m2 28.9 k g/m2 ALEX ([facility]) Systolic blood pressure 121 mm[Hg] 121 mm[Hg] A THENA ([facility]) Body weight 3408 [oz_av] 3408 [oz_av] ALEX ([facility]) Diastolic blood pressure 73 mm[Hg] 73 mm[Hg] ALEX ([facility]) Body height 72 [in_i] 72 [in_i] ALEX ([facility]) Body mass index (BMI) [Ratio] 28.9 kg/m2 28.9 k g/m2 ALEX ([facility]) Systolic blood pressure 121 mm[Hg] 121 mm[Hg] A THENA ([facility]) Body weight 3408 [oz_av] 3408 [oz_av] ALEX ([facility]) Diastolic blood pressure 73 mm[Hg] 73 mm[Hg] ALEX ([facility]) Body height 72 [in_i] 72 [in_i] ALEX ([facility]) Body mass index (BMI) [Ratio] 28.9 kg/m2 28.9 k g/m2 ALEX ([facility]) Systolic blood pressure 121 mm[Hg] 121 mm[facility]Hg] [facility] Body weight 3408 [oz_av] 3408 [oz_av] ALEX ([facility]) Body weight 3408 [oz_av] 3408 [oz_av] ALEX ([facility]) Diastolic blood pressure 73 mm[Hg] 73 mm[Hg] ALEX ([facility]) Body height 72 [in_i] 72 [in_i] ALEX ([facility]) Body mass index (BMI) [Ratio] 28.9 kg/m2 28.9 k g/m2 ALEX ([facility]) Systolic blood pressure 121 mm[Hg] 121 mm[Hg] A [facility] ([facility]) Body mass index (BMI) [Ratio] 28.9 kg/m2 28.9 k g/m2 ALEX ([facility]) Diastolic blood pressure 73 mm[Hg] 73 mm[Hg] ALEX ([facility]) Body height 72 [in_i] 72 [in_i] ALEX ([facility]) Systolic blood pressure 121 mm[Hg] 121 mm[Hg] [facility] Body weight 3408 [oz_av] 3408 [oz_av] ALEX ([facility]) Diastolic blood pressure 91 mm[Hg] 91 mm[Hg] ALEX ([facility]) Body height 72 [in_i] 72 [in_i] ALEX ([facility]) Body mass index (BMI) [Ratio] 29.3 kg/m2 29.3 k g/m2 ALEX ([facility]) Systolic blood pressure 133 mm[Hg] 133 mm[Hg] [facility] Body weight 3462 [oz_av] 3462 [oz_av] ALEX ([facility]) Diastolic blood pressure 91 mm[Hg] 91 mm[Hg] ALEX ([facility]) Body height 72 [in_i] 72 [in_i] ALEX ([facility]) Body mass index (BMI) [Ratio] 29.3 kg/m2 29.3 k g/m2 ALEX ([facility]) Systolic blood pressure 133 mm[Hg] 133 mm[Hg] A THENA ([facility]) Body weight 3462 [oz_av] 3462 [oz_av] ALEX ([facility]) Body mass index (BMI) [Ratio] 29.3 kg/m2 29.3 k g/m2 ALEX ([facility]) Systolic blood pressure 133 mm[Hg] 133 mm[Hg] A THENA ([facility]) Body weight 3462 [oz_av] 3462 [oz_av] ALEX ([facility]) Diastolic blood pressure 91 mm[Hg] 91 mm[Hg] ALEX ([facility]) Body height 72 [in_i] 72 [in_i] ALEX ([facility]) Diastolic blood pressure 91 mm[Hg] 91 mm[Hg] ALEX ([facility]) Body height 72 [in_i] 72 [in_i] ALEX ([facility]) Body weight 3462 [oz_av] 3462 [oz_av] ALEX ([facility]) Body mass index (BMI) [Ratio] 29.3 kg/m2 29.3 k g/m2 ALEX ([facility]) Systolic blood pressure 133 mm[Hg] 133 mm[Hg] A THENA ([facility]) Diastolic blood pressure 91 mm[Hg] 91 mm[Hg] ALEX ([facility]) Body height 72 [in_i] 72 [in_i] ALEX ([facility]) Body mass index (BMI) [Ratio] 29.3 kg/m2 29.3 k g/m2 ALEX ([facility]) Systolic blood pressure 133 mm[Hg] 133 mm[Hg] A THENA ([facility]) Body weight 3462 [oz_av] 3462 [oz_av] ALEX ([facility]) Diastolic blood pressure 91 mm[Hg] 91 mm[Hg] ALEX ([facility]) Body height 72 [in_i] 72 [in_i] ALEX ([facility]) Body mass index (BMI) [Ratio] 29.3 kg/m2 29.3 k g/m2 ALEX ([facility]) Systolic blood pressure 133 mm[Hg] 133 mm[Hg] A THENA ([facility]) Body weight 3462 [oz_av] 3462 [oz_av] ALEX ([facility]) Diastolic blood pressure 91 mm[Hg] 91 mm[Hg] ALEX ([facility]) Body height 72 [in_i] 72 [in_i] ALEX ([facility]) Body mass index (BMI) [Ratio] 29.3 kg/m2 29.3 k g/m2 ALEX ([facility]) Systolic blood pressure 133 mm[Hg] 133 mm[Hg] A THENA ([facility]) Body weight 3462 [oz_av] 3462 [oz_av] ALEX ([facility]) Diastolic blood pressure 91 mm[Hg] 91 mm[Hg] ALEX ([facility]) Body height 72 [in_i] 72 [in_i] ALEX ([facility]) Body mass index (BMI) [Ratio] 29.3 kg/m2 29.3 k g/m2 ALEX ([facility]) Systolic blood pressure 133 mm[Hg] 133 mm[Hg] A THENA ([facility]) Body weight 3462 [oz_av] 3462 [oz_av] ALEX ([facility]) Diastolic blood pressure 91 mm[Hg] 91 mm[Hg] ALEX ([facility]) Body height 72 [in_i] 72 [in_i] ALEX ([facility]) Body mass index (BMI) [Ratio] 29.3 kg/m2 29.3 k g/m2 ALEX ([facility]) Systolic blood pressure 133 mm[Hg] 133 mm[Hg] A THENA ([facility]) Body weight 3462 [oz_av] 3462 [oz_av] ALEX ([facility]) Diastolic blood pressure 91 mm[Hg] 91 mm[Hg] ALEX ([facility]) Body height 72 [in_i] 72 [in_i] ALEX ([facility]) Body mass index (BMI) [Ratio] 29.3 kg/m2 29.3 k g/m2 ALEX ([facility]) Systolic blood pressure 133 mm[Hg] 133 mm[Hg] A THENA ([facility]) Body weight 3462 [oz_av] 3462 [oz_av] ALEX ([facility]) Diastolic blood pressure 91 mm[Hg] 91 mm[Hg] ALEX ([facility]) Body height 72 [in_i] 72 [in_i] ALEX ([facility]) Body mass index (BMI) [Ratio] 29.3 kg/m2 29.3 k g/m2 ALEX ([facility]) Systolic blood pressure 133 mm[Hg] 133 mm[Hg] A THENA ([facility]) Body weight 3462 [oz_av] 3462 [oz_av] ALEX ([facility]) Body height 72 [in_i] 72 [in_i] ALEX ([facility]) Body height 72 [in_i] 72 [in_i] ALEX ([facility]) Body height 72 [in_i] 72 [in_i] ALEX ([facility]) Body height 72 [in_i] 72 [in_i] ALEX ([facility]) Body height 72 [in_i] 72 [in_i] ALEX ([facility]) Body height 72 [in_i] 72 [in_i] ALEX ([facility]) Body height 72 [in_i] 72 [in_i] ALEX ([facility]) Body height 72 [in_i] 72 [in_i] ALEX ([facility]) Body height 72 [in_i] 72 [in_i] ALEX ([facility]) Body height 72 [in_i] 72 [in_i] ALEX ([facility]) Body height 72 [in_i] 72 [in_i] ALEX ([facility]) Body height 72 [in_i] 72 [in_i] ALEX ([facility]) Body height 72 [in_i] 72 [in_i] ALEX ([facility]) Body height 72 [in_i] 72 [in_i] ALEX ([facility]) Body height 72 [in_i] 72 [in_i] ALEX ([facility]) Diastolic blood pressure 78 mm[Hg] 78 mm[Hg] ALEX ([facility]) Body height 72 [in_i] 72 [in_i] ALEX ([facility]) Body mass index (BMI) [Ratio] 26.6 kg/m2 26.6 k g/m2 ALEX ([facility]) Systolic blood pressure 117 mm[Hg] 117 mm[Hg] A [facility] ([facility]) Body weight 3136 [oz_av] 3136 [oz_av] AELX ([facility]) Body mass index (BMI) [Ratio] 26.6 kg/m2 26.6 k g/m2 ALEX ([facility]) Body height 72 [in_i] 72 [in_i] ALEX ([facility]) Diastolic blood pressure 78 mm[Hg] 78 mm[Hg] ALEX ([facility]) Systolic blood pressure 117 mm[Hg] 117 [facility] Body weight 3136 [oz_av] 3136 [oz_av] ALEX ([facility]) Systolic blood pressure 117 mm[Hg] 117 mm[Hg] A THENA ([facility]) Diastolic blood pressure 78 mm[Hg] 78 mm[Hg] ALEX ([facility]) Body height 72 [in_i] 72 [in_i] ALEX ([facility]) Body mass index (BMI) [Ratio] 26.6 kg/m2 26.6 k g/m2 ALEX ([facility]) Body weight 3136 [oz_av] 3136 [oz_av] ALEX ([facility]) Diastolic blood pressure 78 mm[Hg] 78 mm[Hg] ALEX ([facility]) Body height 72 [in_i] 72 [in_i] ALEX ([facility]) Body mass index (BMI) [Ratio] 26.6 kg/m2 26.6 k g/m2 ALEX ([facility]) Systolic blood pressure 117 mm[Hg] 117 [facility] Body weight 3136 [oz_av] 3136 [oz_av] ALEX ([facility]) Body weight 3136 [oz_av] 3136 [oz_av] ALEX ([facility]) Diastolic blood pressure 78 mm[Hg] 78 mm[Hg] ALEX ([facility]) Body height 72 [in_i] 72 [in_i] ALEX ([facility]) Body mass index (BMI) [Ratio] 26.6 kg/m2 26.6 k g/m2 ALEX ([facility]) Systolic blood pressure 117 mm[Hg] 117 [facility]Hg[facility] Diastolic blood pressure 78 mm[Hg] 78 mm[Hg] ALEX ([facility]) Diastolic blood pressure 78 mm[Hg] 78 mm[Hg] ALEX ([facility]) Body height 72 [in_i] 72 [in_i] ALEX ([facility]) Body mass index (BMI) [Ratio] 26.6 kg/m2 26.6 k g/m2 ALEX ([facility]) Systolic blood pressure 117 mm[Hg] 117 mm[Hg] A THENA ([facility]) Body weight 3136 [oz_av] 3136 [oz_av] ALEX ([facility]) Body height 72 [in_i] 72 [in_i] ALEX ([facility]) Body mass index (BMI) [Ratio] 26.6 kg/m2 26.6 k g/m2 ALEX ([facility]) Systolic blood pressure 117 mm[Hg] 117 [facility]Hg] [facility] Body weight 3136 [oz_av] 3136 [oz_av] ALEX ([facility]) Diastolic blood pressure 78 mm[Hg] 78 mm[Hg] ALEX ([facility]) Body height 72 [in_i] 72 [in_i] ALEX ([facility]) Body mass index (BMI) [Ratio] 26.6 kg/m2 26.6 k g/m2 ALEX ([facility]) Systolic blood pressure 117 mm[Hg] 117 [facility]Hg] [facility] Body weight 3136 [oz_av] 3136 [oz_av] ALEX ([facility]) Diastolic blood pressure 78 mm[Hg] 78 mm[Hg] ALEX ([facility]) Body height 72 [in_i] 72 [in_i] ALEX ([facility]) Body mass index (BMI) [Ratio] 26.6 kg/m2 26.6 k g/m2 ALEX ([facility]) Systolic blood pressure 117 mm[Hg] 117 mm[Hg] A [facility] ([facility]) Body weight 3136 [oz_av] 3136 [oz_av] ALEX ([facility]) Diastolic blood pressure 78 mm[Hg] 78 mm[Hg] ALEX ([facility]) Body height 72 [in_i] 72 [in_i] ALEX ([facility]) Body mass index (BMI) [Ratio] 26.6 kg/m2 26.6 k g/m2 ALEX ([facility]) Systolic blood pressure 117 mm[Hg] 117 mm[facility]Hg] [facility] Body weight 3136 [oz_av] 3136 [oz_av] ALEX ([facility]) Diastolic blood pressure 78 mm[Hg] 78 mm[Hg] ALEX ([facility]) Body height 72 [in_i] 72 [in_i] ALEX ([facility]) Body mass index (BMI) [Ratio] 26.6 kg/m2 26.6 k g/m2 ALEX ([facility]) Systolic blood pressure 117 mm[Hg] 117 mm[Hg] A [facility] ([facility]) Body weight 3136 [oz_av] 3136 [oz_av] ALEX ([facility]) Diastolic blood pressure 78 mm[Hg] 78 mm[Hg] ALEX ([facility]) Body height 72 [in_i] 72 [in_i] ALEX ([facility]) Body mass index (BMI) [Ratio] 26.6 kg/m2 26.6 k g/m2 ALEX ([facility]) Systolic blood pressure 117 mm[Hg] 117 mm[facility]Hg] [facility] Body weight 3136 [oz_av] 3136 [oz_av] ALEX ([facility]) Diastolic blood pressure 78 mm[Hg] 78 mm[Hg] ALEX ([facility]) Body height 72 [in_i] 72 [in_i] ALEX ([facility]) Body mass index (BMI) [Ratio] 26.6 kg/m2 26.6 k g/m2 ALEX ([facility]) Systolic blood pressure 117 mm[Hg] 117 mm[facility]Hg] [facility] Body weight 3136 [oz_av] 3136 [oz_av] ALEX ([facility]) Diastolic blood pressure 78 mm[Hg] 78 mm[Hg] ALEX ([facility]) Body height 72 [in_i] 72 [in_i] ALEX ([facility]) Body mass index (BMI) [Ratio] 26.6 kg/m2 26.6 k g/m2 ALEX ([facility]) Systolic blood pressure 117 mm[Hg] 117 mm[Hg] A THENA ([facility]) Body weight 3136 [oz_av] 3136 [oz_av] ALEX ([facility]) Body mass index (BMI) [Ratio] 26.6 kg/m2 26.6 k g/m2 ALEX ([facility]) Systolic blood pressure 117 mm[Hg] 117 mm[Hg] A THENA ([facility]) Body weight 3136 [oz_av] 3136 [oz_av] ALEX ([facility]) Diastolic blood pressure 78 mm[Hg] 78 mm[Hg] ALEX ([facility]) Body height 72 [in_i] 72 [in_i] ALEX ([facility]) Diastolic blood pressure 78 mm[Hg] 78 mm[Hg] ALEX ([facility]) Body height 72 [in_i] 72 [in_i] ALEX ([facility]) Body mass index (BMI) [Ratio] 26.6 kg/m2 26.6 k g/m2 ALEX ([facility]) Systolic blood pressure 117 mm[Hg] 117 mm[Hg] A THENA ([facility]) Body weight 3136 [oz_av] 3136 [oz_av] ALEX ([facility]) Diastolic blood pressure 78 mm[Hg] 78 mm[Hg] ALEX ([facility]) Body height 72 [in_i] 72 [in_i] ALEX ([facility]) Body mass index (BMI) [Ratio] 26.6 kg/m2 26.6 k g/m2 ALEX ([facility]) Systolic blood pressure 117 mm[Hg] 117 [facility]Hg] [facility] Body weight 3136 [oz_av] 3136 [oz_av] ALEX ([facility]) Body weight 3216 [oz_av] 3216 [oz_av] ALEX ([facility]) Diastolic blood pressure 76 mm[Hg] 76 mm[Hg] ALEX ([facility]) Body height 72 [in_i] 72 [in_i] ALEX ([facility]) Body mass index (BMI) [Ratio] 27.3 kg/m2 27.3 k g/m2 ALEX ([facility]) Systolic blood pressure 126 mm[Hg] 126 mm[facility]Hg] [facility] Diastolic blood pressure 76 mm[Hg] 76 mm[Hg] ALEX ([facility]) Body height 72 [in_i] 72 [in_i] ALEX ([facility]) Body mass index (BMI) [Ratio] 27.3 kg/m2 27.3 k g/m2 ALEX ([facility]) Systolic blood pressure 126 mm[Hg] 126 mm[facility]Hg] [facility] Body weight 3216 [oz_av] 3216 [oz_av] ALEX ([facility]) Diastolic blood pressure 76 mm[Hg] 76 mm[Hg] ALEX ([facility]) Body height 72 [in_i] 72 [in_i] ALEX ([facility]) Body mass index (BMI) [Ratio] 27.3 kg/m2 27.3 k g/m2 ALEX ([facility]) Systolic blood pressure 126 mm[Hg] 126 mm[Hg] [facility] Body weight 3216 [oz_av] 3216 [oz_av] ALEX ([facility]) Body mass index (BMI) [Ratio] 27.3 kg/m2 27.3 k g/m2 ALEX ([facility]) Systolic blood pressure 126 mm[Hg] 126 mm[Hg] [facility] Body weight 3216 [oz_av] 3216 [oz_av] ALEX ([facility]) Body height 72 [in_i] 72 [in_i] ALEX ([facility]) Diastolic blood pressure 76 mm[Hg] 76 mm[Hg] ALEX ([facility]) Diastolic blood pressure 76 mm[Hg] 76 mm[Hg] ALEX ([facility]) Body height 72 [in_i] 72 [in_i] ALEX ([facility]) Body mass index (BMI) [Ratio] 27.3 kg/m2 27.3 k g/m2 ALEX ([facility]) Systolic blood pressure 126 mm[Hg] 126 mm[Hg] [facility] Body weight 3216 [oz_av] 3216 [oz_av] ALEX ([facility]) Diastolic blood pressure 76 mm[Hg] 76 mm[Hg] ALEX ([facility]) Body height 72 [in_i] 72 [in_i] ALEX ([facility]) Body mass index (BMI) [Ratio] 27.3 kg/m2 27.3 k g/m2 ALEX ([facility]) Systolic blood pressure 126 mm[Hg] 126 mm[Hg] [facility] Body weight 3216 [oz_av] 3216 [oz_av] ALEX ([facility]) Diastolic blood pressure 76 mm[Hg] 76 mm[Hg] ALEX ([facility]) Body height 72 [in_i] 72 [in_i] ALEX ([facility]) Body mass index (BMI) [Ratio] 27.3 kg/m2 27.3 k g/m2 ALEX ([facility]) Systolic blood pressure 126 mm[Hg] 126 mm[facility]Hg] [facility] Body weight 3216 [oz_av] 3216 [oz_av] ALEX ([facility]) Diastolic blood pressure 76 mm[Hg] 76 mm[Hg] ALEX ([facility]) Body height 72 [in_i] 72 [in_i] ALEX ([facility]) Body mass index (BMI) [Ratio] 27.3 kg/m2 27.3 k g/m2 ALEX ([facility]) Systolic blood pressure 126 mm[Hg] 126 mm[Hg] [facility] Body weight 3216 [oz_av] 3216 [oz_av] ALEX ([facility]) Systolic blood pressure 126 mm[Hg] 126 mm[Hg] A THENA ([facility]) Body weight 3216 [oz_av] 3216 [oz_av] ALEX ([facility]) Diastolic blood pressure 76 mm[Hg] 76 mm[Hg] ALEX ([facility]) Body height 72 [in_i] 72 [in_i] ALEX ([facility]) Body mass index (BMI) [Ratio] 27.3 kg/m2 27.3 k g/m2 ALEX ([facility]) Systolic blood pressure 126 mm[Hg] 126 mm[Hg] A THENA ([facility]) Body weight 3216 [oz_av] 3216 [oz_av] ALEX ([facility]) Diastolic blood pressure 76 mm[Hg] 76 mm[Hg] ALEX ([facility]) Body height 72 [in_i] 72 [in_i] ALEX ([facility]) Body mass index (BMI) [Ratio] 27.3 kg/m2 27.3 k g/m2 ALEX ([facility]) Systolic blood pressure 126 mm[Hg] 126 mm[Hg] A THENA ([facility]) Diastolic blood pressure 76 mm[Hg] 76 mm[Hg] ALEX ([facility]) Body height 72 [in_i] 72 [in_i] ALEX ([facility]) Body mass index (BMI) [Ratio] 27.3 kg/m2 27.3 k g/m2 ALEX ([facility]) Systolic blood pressure 126 mm[Hg] 126 mm[Hg] [facility] Body weight 3216 [oz_av] 3216 [oz_av] ALEX ([facility]) Diastolic blood pressure 76 mm[Hg] 76 mm[Hg] ALEX ([facility]) Body height 72 [in_i] 72 [in_i] ALEX ([facility]) Body mass index (BMI) [Ratio] 27.3 kg/m2 27.3 k g/m2 ALEX ([facility]) Body weight 3216 [oz_av] 3216 [oz_av] ALEX ([facility]) Diastolic blood pressure 76 mm[Hg] 76 mm[Hg] ALEX ([facility]) Body height 72 [in_i] 72 [in_i] ALEX ([facility]) Body mass index (BMI) [Ratio] 27.3 kg/m2 27.3 k g/m2 ALEX ([facility]) Systolic blood pressure 126 mm[Hg] 126 mm[Hg] [facility] Body weight 3216 [oz_av] 3216 [oz_av] ALEX ([facility]) Diastolic blood pressure 76 mm[Hg] 76 mm[Hg] ALEX ([facility]) Body height 72 [in_i] 72 [in_i] ALEX ([facility]) Body mass index (BMI) [Ratio] 27.3 kg/m2 27.3 k g/m2 ALEX ([facility]) Systolic blood pressure 126 mm[Hg] 126 mm[Hg] A [facility] ([facility]) Body weight 3216 [oz_av] 3216 [oz_av] ALEX ([facility]) Diastolic blood pressure 76 mm[Hg] 76 mm[Hg] ALEX ([facility]) Body height 72 [in_i] 72 [in_i] ALEX ([facility]) Body mass index (BMI) [Ratio] 27.3 kg/m2 27.3 k g/m2 ALEX ([facility]) Systolic blood pressure 126 mm[Hg] 126 mm[Hg] [facility] Body weight 3216 [oz_av] 3216 [oz_av] ALEX ([facility]) Body height 72 [in_i] 72 [in_i] ALEX ([facility]) Diastolic blood pressure 76 mm[Hg] 76 mm[Hg] ALEX ([facility]) Body mass index (BMI) [Ratio] 27.3 kg/m2 27.3 k g/m2 ALEX ([facility]) Systolic blood pressure 126 mm[Hg] 126 mm[facility]Hg] [facility] Body weight 3216 [oz_av] 3216 [oz_av] ALEX ([facility]) Diastolic blood pressure 76 mm[Hg] 76 mm[Hg] ALEX ([facility]) Body height 72 [in_i] 72 [in_i] ALEX ([facility]) Body mass index (BMI) [Ratio] 27.3 kg/m2 27.3 k g/m2 ALEX ([facility]) Systolic blood pressure 126 mm[Hg] 126 mm[Hg] [facility] Body weight 3216 [oz_av] 3216 [oz_av] ALEX ([facility]) Diastolic blood pressure 76 mm[Hg] 76 mm[Hg] ALXE ([facility]) Body height 72 [in_i] 72 [in_i] ALEX ([facility]) Body mass index (BMI) [Ratio] 27.3 kg/m2 27.3 k g/m2 AELX ([facility]) Systolic blood pressure 126 mm[Hg] 126 mm[Hg] [facility] Body weight 3216 [oz_av] 3216 [oz_av] ALEX ([facility]) Diastolic blood pressure 86 mm[Hg] 86 mm[Hg] ALEX ([facility]) Body height 72 [in_i] 72 [in_i] ALEX ([facility]) Body mass index (BMI) [Ratio] 27.9 kg/m2 27.9 k g/m2 ALEX ([facility]) Systolic blood pressure 129 mm[Hg] 129 mm[facility]Hg] [facility] Diastolic blood pressure 86 mm[Hg] 86 mm[Hg] ALEX ([facility]) Body height 72 [in_i] 72 [in_i] ALEX ([facility]) Body mass index (BMI) [Ratio] 27.9 kg/m2 27.9 k g/m2 ALEX ([facility]) Systolic blood pressure 129 mm[Hg] 129 mm[facility]Hg] [facility] Body weight 3296 [oz_av] 3296 [oz_av] ALEX ([facility]) Body weight 3296 [oz_av] 3296 [oz_av] ALEX ([facility]) Body height 72 [in_i] 72 [in_i] ALEX ([facility]) Diastolic blood pressure 86 mm[Hg] 86 mm[Hg] ALEX ([facility]) Body mass index (BMI) [Ratio] 27.9 kg/m2 27.9 k g/m2 ALEX ([facility]) Systolic blood pressure 129 mm[Hg] 129 mm[Hg] A THENA ([facility]) Body weight 3296 [oz_av] 3296 [oz_av] ALEX ([facility]) Diastolic blood pressure 86 mm[Hg] 86 mm[Hg] ALEX ([facility]) Body height 72 [in_i] 72 [in_i] ALEX ([facility]) Body mass index (BMI) [Ratio] 27.9 kg/m2 27.9 k g/m2 ALEX ([facility]) Systolic blood pressure 129 mm[Hg] 129 mm[Hg] [facility] Body weight 3296 [oz_av] 3296 [oz_av] ALEX ([facility]) Diastolic blood pressure 86 mm[Hg] 86 mm[Hg] ALEX ([facility]) Body height 72 [in_i] 72 [in_i] ALEX ([facility]) Body mass index (BMI) [Ratio] 27.9 kg/m2 27.9 k g/m2 ALEX ([facility]) Systolic blood pressure 129 mm[Hg] 129 mm[Hg] [facility] Body weight 3296 [oz_av] 3296 [oz_av] ALEX ([facility]) Diastolic blood pressure 86 mm[Hg] 86 mm[Hg] ALEX ([facility]) Body height 72 [in_i] 72 [in_i] ALEX ([facility]) Body mass index (BMI) [Ratio] 27.9 kg/m2 27.9 k g/m2 ALEX ([facility]) Systolic blood pressure 129 mm[Hg] 129 mm[Hg] A [facility] ([facility]) Body weight 3296 [oz_av] 3296 [oz_av] ALEX ([facility]) Diastolic blood pressure 86 mm[Hg] 86 mm[Hg] ALEX ([facility]) Body height 72 [in_i] 72 [in_i] ALEX ([facility]) Body mass index (BMI) [Ratio] 27.9 kg/m2 27.9 k g/m2 ALEX ([facility]) Systolic blood pressure 129 mm[Hg] 129 mm[Hg] [facility] Body weight 3296 [oz_av] 3296 [oz_av] ALEX ([facility]) Diastolic blood pressure 86 mm[Hg] 86 mm[Hg] ALEX ([facility]) Body height 72 [in_i] 72 [in_i] ALEX ([facility]) Body mass index (BMI) [Ratio] 27.9 kg/m2 27.9 k g/m2 ALEX ([facility]) Systolic blood pressure 129 mm[Hg] 129 mm[Hg] [facility] Body weight 3296 [oz_av] 3296 [oz_av] ALEX ([facility]) Diastolic blood pressure 86 mm[Hg] 86 mm[Hg] ALEX ([facility]) Body height 72 [in_i] 72 [in_i] ALEX ([facility]) Body mass index (BMI) [Ratio] 27.9 kg/m2 27.9 k g/m2 ALEX ([facility]) Systolic blood pressure 129 mm[Hg] 129 mm[Hg] [facility] Body weight 3296 [oz_av] 3296 [oz_av] ALEX ([facility]) Diastolic blood pressure 86 mm[Hg] 86 mm[Hg] ALEX ([facility]) Body height 72 [in_i] 72 [in_i] ALEX ([facility]) Body mass index (BMI) [Ratio] 27.9 kg/m2 27.9 k g/m2 ALEX ([facility]) Systolic blood pressure 129 mm[Hg] 129 mm[Hg] A [facility] ([facility]) Body weight 3296 [oz_av] 3296 [oz_av] ALEX ([facility]) Diastolic blood pressure 86 mm[Hg] 86 mm[Hg] ALEX ([facility]) Body height 72 [in_i] 72 [in_i] ALEX ([facility]) Body mass index (BMI) [Ratio] 27.9 kg/m2 27.9 k g/m2 ALEX ([facility]) Systolic blood pressure 129 mm[Hg] 129 mm[facility]Hg] [facility] Body weight 3296 [oz_av] 3296 [oz_av] ALEX ([facility]) Diastolic blood pressure 86 mm[Hg] 86 mm[Hg] ALEX ([facility]) Body height 72 [in_i] 72 [in_i] ALEX ([facility]) Body mass index (BMI) [Ratio] 27.9 kg/m2 27.9 k g/m2 ALEX ([facility]) Systolic blood pressure 129 mm[Hg] 129 mm[Hg] [facility] Body weight 3296 [oz_av] 3296 [oz_av] ALEX ([facility]) Diastolic blood pressure 86 mm[Hg] 86 mm[Hg] ALEX ([facility]) Body height 72 [in_i] 72 [in_i] ALEX ([facility]) Body mass index (BMI) [Ratio] 27.9 kg/m2 27.9 k g/m2 ALEX ([facility]) Systolic blood pressure 129 mm[Hg] 129 mm[Hg] [facility] Body weight 3296 [oz_av] 3296 [oz_av] ALEX ([facility]) Diastolic blood pressure 86 mm[Hg] 86 mm[Hg] ALEX ([facility]) Body height 72 [in_i] 72 [in_i] ALEX ([facility]) Body mass index (BMI) [Ratio] 27.9 kg/m2 27.9 k g/m2 ALEX ([facility]) Systolic blood pressure 129 mm[Hg] 129 mm[Hg] A [facility] ([facility]) Body weight 3296 [oz_av] 3296 [oz_av] ALEX ([facility]) Body height 72 [in_i] 72 [in_i] ALEX ([facility]) Diastolic blood pressure 86 mm[Hg] 86 mm[Hg] ALEX ([facility]) Body mass index (BMI) [Ratio] 27.9 kg/m2 27.9 k g/m2 ALEX ([facility]) Systolic blood pressure 129 mm[Hg] 129 mm[Hg] [facility] Body weight 3296 [oz_av] 3296 [oz_av] ALEX ([facility]) Diastolic blood pressure 86 mm[Hg] 86 mm[Hg] ALEX ([facility]) Body height 72 [in_i] 72 [in_i] ALEX ([facility]) Body mass index (BMI) [Ratio] 27.9 kg/m2 27.9 k g/m2 ALEX ([facility]) Systolic blood pressure 129 mm[Hg] 129 mm[Hg] [facility] Body weight 3296 [oz_av] 3296 [oz_av] ALEX ([facility]) Diastolic blood pressure 86 mm[Hg] 86 mm[Hg] ALEX ([facility]) Body height 72 [in_i] 72 [in_i] ALEX ([facility]) Body mass index (BMI) [Ratio] 27.9 kg/m2 27.9 k g/m2 ALEX ([facility]) Systolic blood pressure 129 mm[Hg] 129 mm[Hg] A [place] ([facility]) Body weight 3296 [oz_av] 3296 [oz_av] ALEX ([facility]) Diastolic blood pressure 86 mm[Hg] 86 mm[Hg] ALEX ([facility]) Body height 72 [in_i] 72 [in_i] ALEX ([facility]) Body mass index (BMI) [Ratio] 27.9 kg/m2 27.9 k g/m2 ALEX ([facility]) Systolic blood pressure 129 mm[Hg] 129 mm[Hg] [facility] Body weight 3296 [oz_av] 3296 [oz_av] ALEX ([facility]) Diastolic blood pressure 86 mm[Hg] 86 mm[Hg] ALEX ([facility]) Body height 72 [in_i] 72 [in_i] ALEX ([facility]) Body mass index (BMI) [Ratio] 27.9 kg/m2 27.9 k g/m2 ALEX ([facility]) Systolic blood pressure 129 mm[Hg] 129 mm[Hg] A THENA ([facility]) Body weight 3296 [oz_av] 3296 [oz_av] ALEX ([facility]) Diastolic blood pressure 71 mm[Hg] 71 mm[Hg] ALEX ([facility]) Body height 72 [in_i] 72 [in_i] ALEX ([facility]) Body mass index (BMI) [Ratio] 29.01 kg/m2 29.01 kg/m2 ALEX ([facility]) Systolic blood pressure 109 mm[Hg] 109 mm[Hg] [facility] Body weight 3410.08 [oz_av] 3410.08 [oz_av] A[facility] [place] ([facility]) Body mass index (BMI) [Ratio] 29.01 kg/m2 29.01 kg/m2 ALEX ([facility]) Diastolic blood pressure 71 mm[Hg] 71 mm[Hg] ALEX ([facility]) Body height 72 [in_i] 72 [in_i] ALEX ([facility]) Systolic blood pressure 109 mm[Hg] 109 mm[Hg] A [facility] ([facility]) Body weight 3410.08 [oz_av] 3410.08 [oz_av] A[facility] [place] ([facility]) Diastolic blood pressure 71 mm[Hg] 71 mm[Hg] ALEX ([facility]) Body height 72 [in_i] 72 [in_i] ALEX ([facility]) Body mass index (BMI) [Ratio] 29.01 kg/m2 29.01 kg/m2 ALEX ([facility]) Systolic blood pressure 109 mm[Hg] 109 mm[Hg] A [facility] ([facility]) Body weight 3410.08 [oz_av] 3410.08 [oz_av] A[facility] [place] ([facility]) Diastolic blood pressure 71 mm[Hg] 71 mm[Hg] ALEX ([facility]) Body height 72 [in_i] 72 [in_i] ALEX ([facility]) Body mass index (BMI) [Ratio] 29.01 kg/m2 29.01 kg/m2 ALEX ([facility]) Systolic blood pressure 109 mm[Hg] 109 mm[Hg] A [facility] ([facility]) Body weight 3410.08 [oz_av] 3410.08 [oz_av] A[facility] [place] ([facility]) Diastolic blood pressure 71 mm[Hg] 71 mm[Hg] ALEX ([facility]) Body height 72 [in_i] 72 [in_i] ALEX ([facility]) Body mass index (BMI) [Ratio] 29.01 kg/m2 29.01 kg/m2 ALEX ([facility]) Systolic blood pressure 109 mm[Hg] 109 mm[Hg] A [facility] ([facility]) Body weight 3410.08 [oz_av] 3410.08 [oz_av] A[facility] [place] ([facility]) Diastolic blood pressure 71 mm[Hg] 71 mm[Hg] ALEX ([facility]) Body height 72 [in_i] 72 [in_i] ALEX ([facility]) Body mass index (BMI) [Ratio] 29.01 kg/m2 29.01 kg/m2 ALEX ([facility]) Systolic blood pressure 109 mm[Hg] 109 mm[Hg] [facility] Body weight 3410.08 [oz_av] 3410.08 [oz_av] A[facility] [place] ([facility]) Diastolic blood pressure 71 mm[Hg] 71 mm[Hg] ALEX ([facility]) Body height 72 [in_i] 72 [in_i] ALEX ([facility]) Body mass index (BMI) [Ratio] 29.01 kg/m2 29.01 kg/m2 ALEX ([facility]) Systolic blood pressure 109 mm[Hg] 109 mm[Hg] [facility] Body weight 3410.08 [oz_av] 3410.08 [oz_av] A[facility] [place] ([facility]) Diastolic blood pressure 71 mm[Hg] 71 mm[Hg] ALEX ([facility]) Body height 72 [in_i] 72 [in_i] ALEX ([facility]) Body mass index (BMI) [Ratio] 29.01 kg/m2 29.01 kg/m2 ALEX ([facility]) Systolic blood pressure 109 mm[Hg] 109 mm[Hg] A [place] ([facility]) Body weight 3410.08 [oz_av] 3410.08 [oz_av] A[facility] [place] ([facility]) Diastolic blood pressure 71 mm[Hg] 71 mm[Hg] ALEX ([facility]) Body height 72 [in_i] 72 [in_i] ALEX ([facility]) Body mass index (BMI) [Ratio] 29.01 kg/m2 29.01 kg/m2 ALEX ([facility]) Systolic blood pressure 109 mm[Hg] 109 mm[Hg] [facility] Body weight 3410.08 [oz_av] 3410.08 [oz_av] A[place] ([facility]) Diastolic blood pressure 71 mm[Hg] 71 mm[Hg] ALEX ([facility]) Body height 72 [in_i] 72 [in_i] ALEX ([facility]) Body mass index (BMI) [Ratio] 29.01 kg/m2 29.01 kg/m2 ALEX ([facility]) Systolic blood pressure 109 mm[Hg] 109 mm[Hg] A [place] ([facility]) Body weight 3410.08 [oz_av] 3410.08 [oz_av] A[facility] [place] ([facility]) Diastolic blood pressure 71 mm[Hg] 71 mm[Hg] ALEX ([facility]) Body height 72 [in_i] 72 [in_i] ALEX ([facility]) Body mass index (BMI) [Ratio] 29.01 kg/m2 29.01 kg/m2 ALEX ([facility]) Systolic blood pressure 109 mm[Hg] 109 mm[Hg] A [place] ([facility]) Body weight 3410.08 [oz_av] 3410.08 [oz_av] A[facility] [place] ([facility]) Diastolic blood pressure 71 mm[Hg] 71 mm[Hg] ALEX ([facility]) Body height 72 [in_i] 72 [in_i] ALEX ([facility]) Body mass index (BMI) [Ratio] 29.01 kg/m2 29.01 kg/m2 ALEX ([facility]) Systolic blood pressure 109 mm[Hg] 109 mm[Hg] A [place] ([facility]) Body weight 3410.08 [oz_av] 3410.08 [oz_av] A[facility] [place] ([facility]) Body weight 3410.08 [oz_av] 3410.08 [oz_av] A[facility] [place] ([facility]) Diastolic blood pressure 71 mm[Hg] 71 mm[Hg] ALEX ([facility]) Body height 72 [in_i] 72 [in_i] ALEX ([facility]) Body mass index (BMI) [Ratio] 29.01 kg/m2 29.01 kg/m2 ALEX ([facility]) Systolic blood pressure 109 mm[Hg] 109 mm[Hg] A [place] ([facility]) Systolic blood pressure 109 mm[Hg] 109 mm[Hg] A [place] ([facility]) Body weight 3410.08 [oz_av] 3410.08 [oz_av] A[facility] [place] ([facility]) Diastolic blood pressure 71 mm[Hg] 71 mm[Hg] ALEX ([facility]) Body height 72 [in_i] 72 [in_i] ALEX ([facility]) Body mass index (BMI) [Ratio] 29.01 kg/m2 29.01 kg/m2 ALEX ([facility]) Body weight 3410.08 [oz_av] 3410.08 [oz_av] A[facility] [place] ([facility]) Diastolic blood pressure 71 mm[Hg] 71 mm[Hg] ALEX ([facility]) Body height 72 [in_i] 72 [in_i] ALEX ([facility]) Body mass index (BMI) [Ratio] 29.01 kg/m2 29.01 kg/m2 ALEX ([facility]) Systolic blood pressure 109 mm[Hg] 109 mm[Hg] A [place] ([facility]) Body weight 3410.08 [oz_av] 3410.08 [oz_av] ATH [place] ([facility]) Diastolic blood pressure 71 mm[Hg] 71 mm[Hg] ALEX ([facility]) Body height 72 [in_i] 72 [in_i] ALEX ([facility]) Body mass index (BMI) [Ratio] 29.01 kg/m2 29.01 kg/m2 ALEX ([facility]) Systolic blood pressure 109 mm[Hg] 109 mm[Hg] [facility] Diastolic blood pressure 71 mm[Hg] 71 mm[Hg] ALEX ([facility]) Body height 72 [in_i] 72 [in_i] ALEX ([facility]) Body mass index (BMI) [Ratio] 29.01 kg/m2 29.01 kg/m2 ALEX ([facility]) Systolic blood pressure 109 mm[Hg] 109 mm[Hg] [facility] Body weight 3410.08 [oz_av] 3410.08 [oz_av] A[facility] [place] ([facility]) Diastolic blood pressure 71 mm[Hg] 71 mm[Hg] ALEX ([facility]) Body height 72 [in_i] 72 [in_i] ALEX ([facility]) Body mass index (BMI) [Ratio] 29.01 kg/m2 29.01 kg/m2 ALEX ([facility]) Systolic blood pressure 109 mm[Hg] 109 mm[Hg] A [place] ([facility]) Body weight 3410.08 [oz_av] 3410.08 [oz_av] A[facility] [place] ([facility]) Patient Treatment Plan of Care Planned Activity Planned Date Details Description Data Source (s) 60 ACTUAT Fluticasone propionate 0.25 MG /ACTUAT / salmeterol 0.05 MG/ACTUAT Dry Powder Inhaler 11/25/2020 12:00:00 AM EDT ATHEN A ([facility]) 60 ACTUAT Fluticasone propionate 0.25 MG /ACTUAT / salmeterol 0.05 MG/ACTUAT Dry Powder Inhaler 11/25/2020 12:00:00 AM EDT ATHEN A ([facility]) 60 ACTUAT Fluticasone propionate 0.25 MG /ACTUAT / salmeterol 0.05 MG/ACTUAT Dry Powder Inhaler 11/25/2020 12:00:00 AM EDT ATHEN A ([facility]) 60 ACTUAT Fluticasone propionate 0.25 MG /ACTUAT / salmeterol 0.05 MG/ACTUAT Dry Powder Inhaler 11/25/2020 12:00:00 AM EDT ATHEN A ([facility]) 60 ACTUAT Fluticasone propionate 0.25 MG /ACTUAT / salmeterol 0.05 MG/ACTUAT Dry Powder Inhaler 11/25/2020 12:00:00 AM EDT ATHEN A ([facility]) 60 ACTUAT Fluticasone propionate 0.25 MG /ACTUAT / salmeterol 0.05 MG/ACTUAT Dry Powder Inhaler 11/25/2020 12:00:00 AM EDT ATHEN A ([facility]) 60 ACTUAT Fluticasone propionate 0.25 MG /ACTUAT / salmeterol 0.05 MG/ACTUAT Dry Powder Inhaler 11/25/2020 12:00:00 AM EDT ATHEN A ([facility]) 60 ACTUAT Fluticasone propionate 0.25 MG /ACTUAT / salmeterol 0.05 MG/ACTUAT Dry Powder Inhaler 11/25/2020 12:00:00 AM EDT ATHEN A ([facility]) 60 ACTUAT Fluticasone propionate 0.25 MG /ACTUAT / salmeterol 0.05 MG/ACTUAT Dry Powder Inhaler 11/25/2020 12:00:00 AM EDT ATHEN A ([facility]) 60 ACTUAT Fluticasone propionate 0.25 MG /ACTUAT / salmeterol 0.05 MG/ACTUAT Dry Powder Inhaler 11/25/2020 12:00:00 AM EDT ATHEN A ([facility]) 60 ACTUAT Fluticasone propionate 0.25 MG /ACTUAT / salmeterol 0.05 MG/ACTUAT Dry Powder Inhaler 11/25/2020 12:00:00 AM EDT ATHEN A ([facility]) 60 ACTUAT Fluticasone propionate 0.25 MG /ACTUAT / salmeterol 0.05 MG/ACTUAT Dry Powder Inhaler 11/25/2020 12:00:00 AM EDT ATHEN A ([facility]) 60 ACTUAT Fluticasone propionate 0.25 MG /ACTUAT / salmeterol 0.05 MG/ACTUAT Dry Powder Inhaler 11/25/2020 12:00:00 AM EDT ATHEN A ([facility]) 60 ACTUAT Fluticasone propionate 0.25 MG /ACTUAT / salmeterol 0.05 MG/ACTUAT Dry Powder Inhaler 11/25/2020 12:00:00 AM EDT ATHEN A ([facility]) 60 ACTUAT Fluticasone propionate 0.25 MG /ACTUAT / salmeterol 0.05 MG/ACTUAT Dry Powder Inhaler 11/25/2020 12:00:00 AM EDT ATHEN A ([facility]) 60 ACTUAT Fluticasone propionate 0.25 MG /ACTUAT / salmeterol 0.05 MG/ACTUAT Dry Powder Inhaler 11/25/2020 12:00:00 AM EDT ATHEN A ([facility]) 60 ACTUAT Fluticasone propionate 0.25 MG /ACTUAT / salmeterol 0.05 MG/ACTUAT Dry Powder Inhaler 11/25/2020 12:00:00 AM EDT ATHEN A ([facility]) Ibuprofen 600 MG Oral Tablet ALEX ([facility]) gabapentin 300 MG Oral Capsule ALEX ([facility]) Fluzone Quad 60 mcg (15 mcg x 4)/0.5 mL intramuscular susp. INJECT DIRECTED ALEX ([facility]) Escitalopram 20 MG Oral Tablet ALEX ([facility]) Escitalopram 10 MG Oral Tablet ALEX ([facility]) Amoxicillin 875 MG / Clavulanate 125 MG Oral Tablet ALEX ([facility]) Acetaminophen 325 MG Oral Tablet ALEX ([facility]) Tobramycin 3 MG/ML Ophthalmic Solution IMPERIAL ([facility]) tizanidine 2 MG Oral Tablet IMPERIAL ([facility]) terbinafine 250 MG Oral Tablet IMPERIAL ([facility]) Sulfamethoxazole 800 MG / Trimethoprim 160 MG Oral Tablet IMPERIAL ([facility]) sildenafil 100 MG Oral Tablet IMPERIAL ([facility]) Omeprazole 20 MG Delayed Release Oral Capsule IMPERIAL ([facility]) Naproxen 500 MG Oral Tablet ALEX ([facility]) methylprednisolone 4 mg tablets in a dos e pack TAKE DOSE BRIJESH DIRECTED ON SHEET ALEX ([facility]) meloxicam 7.5 MG Oral Tablet ALEX ([facility]) Ibuprofen 600 MG Oral Tablet ALEX ([facility]) gabapentin 300 MG Oral Capsule ALEX ([facility]) Fluzone Quad 60 mcg (15 mcg x 4)/0.5 mL intramuscular susp. INJECT DIRECTED ALEX ([facility]) Escitalopram 20 MG Oral Tablet ALEX ([facility]) Escitalopram 10 MG Oral Tablet ALEX ([facility]) Amoxicillin 875 MG / Clavulanate 125 MG Oral Tablet ALEX ([facility]) Acetaminophen 325 MG Oral Tablet ALEX ([facility]) Tobramycin 3 MG/ML Ophthalmic Solution ALEX ([facility]) tizanidine 2 MG Oral Tablet ALEX ([facility]) terbinafine 250 MG Oral Tablet ALEX ([facility]) Sulfamethoxazole 800 MG / Trimethoprim 160 MG Oral Tablet ALEX ([facility]) sildenafil 100 MG Oral Tablet ALEX ([facility]) Omeprazole 20 MG Delayed Release Oral Capsule ALEX ([facility]) Naproxen 500 MG Oral Tablet ALEX ([facility]) methylprednisolone 4 mg tablets in a dos e pack TAKE DOSE BRIJESH DIRECTED ON SHEET ALEX ([facility]) meloxicam 7.5 MG Oral Tablet ALEX ([facility]) Ibuprofen 600 MG Oral Tablet ALEX ([facility]) gabapentin 300 MG Oral Capsule ALEX ([facility]) Fluzone Quad 60 mcg (15 mcg x 4)/0.5 mL intramuscular susp. INJECT DIRECTED ALEX ([facility]) Escitalopram 20 MG Oral Tablet ALEX ([facility]) Escitalopram 10 MG Oral Tablet ALEX ([facility]) Amoxicillin 875 MG / Clavulanate 125 MG Oral Tablet ALEX ([facility]) Acetaminophen 325 MG Oral Tablet ALEX ([facility]) Tobramycin 3 MG/ML Ophthalmic Solution ALEX ([facility]) tizanidine 2 MG Oral Tablet ALEX ([facility]) terbinafine 250 MG Oral Tablet ALEX ([facility]) Sulfamethoxazole 800 MG / Trimethoprim 160 MG Oral Tablet ALEX ([facility]) sildenafil 100 MG Oral Tablet ALEX ([facility]) Omeprazole 20 MG Delayed Release Oral Capsule ALEX ([facility]) Naproxen 500 MG Oral Tablet ALEX ([facility]) methylprednisolone 4 mg tablets in a dos e pack TAKE DOSE BRIJESH DIRECTED ON SHEET ALEX ([facility]) meloxicam 7.5 MG Oral Tablet ALEX ([facility]) Ibuprofen 600 MG Oral Tablet ALEX ([facility]) gabapentin 300 MG Oral Capsule ALEX ([facility]) Fluzone Quad 60 mcg (15 mcg x 4)/0.5 mL intramuscular susp. INJECT DIRECTED ALEX ([facility]) Escitalopram 20 MG Oral Tablet ALEX ([facility]) Escitalopram 10 MG Oral Tablet ALEX ([facility]) Amoxicillin 875 MG / Clavulanate 125 MG Oral Tablet ALEX ([facility]) Acetaminophen 325 MG Oral Tablet ALEX ([facility]) Tobramycin 3 MG/ML Ophthalmic Solution ALEX ([facility]) tizanidine 2 MG Oral Tablet ALEX ([facility]) terbinafine 250 MG Oral Tablet ALEX ([facility]) Sulfamethoxazole 800 MG / Trimethoprim 160 MG Oral Tablet ALEX ([facility]) sildenafil 100 MG Oral Tablet ALEX ([facility]) Omeprazole 20 MG Delayed Release Oral Capsule ALEX ([facility]) Naproxen 500 MG Oral Tablet ALEX ([facility]) meloxicam 7.5 MG Oral Tablet ALEX ([facility]) Ibuprofen 600 MG Oral Tablet ALEX ([facility]) gabapentin 300 MG Oral Capsule ALEX ([facility]) Fluzone Quad 60 mcg (15 mcg x 4)/0.5 mL intramuscular susp. INJECT DIRECTED ALEX ([facility]) Escitalopram 20 MG Oral Tablet ALEX ([facility]) Escitalopram 10 MG Oral Tablet ALEX ([facility]) Amoxicillin 875 MG / Clavulanate 125 MG Oral Tablet ALEX ([facility]) Acetaminophen 325 MG Oral Tablet ALEX ([facility]) Tobramycin 3 MG/ML Ophthalmic Solution ALEX ([facility]) tizanidine 2 MG Oral Tablet ALEX ([facility]) terbinafine 250 MG Oral Tablet ALEX ([facility]) Sulfamethoxazole 800 MG / Trimethoprim 160 MG Oral Tablet ALEX ([facility]) sildenafil 100 MG Oral Tablet ALEX ([facility]) Omeprazole 20 MG Delayed Release Oral Capsule ALEX ([facility]) Naproxen 500 MG Oral Tablet ALEX ([facility]) methylprednisolone 4 mg tablets in a dos e pack TAKE DOSE BRIJESH DIRECTED ON SHEET ALEX ([facility]) meloxicam 7.5 MG Oral Tablet ALEX ([facility]) Ibuprofen 600 MG Oral Tablet ALEX ([facility]) gabapentin 300 MG Oral Capsule ALEX ([facility]) Fluzone Quad 60 mcg (15 mcg x 4)/0.5 mL intramuscular susp. INJECT DIRECTED ALEX ([facility]) Escitalopram 20 MG Oral Tablet ALEX ([facility]) Escitalopram 10 MG Oral Tablet ALEX ([facility]) Amoxicillin 875 MG / Clavulanate 125 MG Oral Tablet ALEX ([facility]) Acetaminophen 325 MG Oral Tablet ALEX ([facility]) Tobramycin 3 MG/ML Ophthalmic Solution ALEX ([facility]) tizanidine 2 MG Oral Tablet ALEX ([facility]) Tobramycin 3 MG/ML Ophthalmic Solution ALEX ([facility]) tizanidine 2 MG Oral Tablet ALEX ([facility]) terbinafine 250 MG Oral Tablet ALEX ([facility]) Sulfamethoxazole 800 MG / Trimethoprim 160 MG Oral Tablet ALEX ([facility]) sildenafil 100 MG Oral Tablet ALEX ([facility]) Omeprazole 20 MG Delayed Release Oral Capsule ALEX ([facility]) Naproxen 500 MG Oral Tablet ALEX ([facility]) methylprednisolone 4 mg tablets in a dos e pack TAKE DOSE BRIJESH DIRECTED ON SHEET ALEX ([facility]) meloxicam 7.5 MG Oral Tablet ALEX ([facility]) Ibuprofen 600 MG Oral Tablet ALEX ([facility]) gabapentin 300 MG Oral Capsule ALEX ([facility]) Fluzone Quad 60 mcg (15 mcg x 4)/0.5 mL intramuscular susp. INJECT DIRECTED ALEX ([facility]) Escitalopram 20 MG Oral Tablet ALEX ([facility]) Escitalopram 10 MG Oral Tablet ALEX ([facility]) Amoxicillin 875 MG / Clavulanate 125 MG Oral Tablet ALEX ([facility]) Acetaminophen 325 MG Oral Tablet ALEX ([facility]) Tobramycin 3 MG/ML Ophthalmic Solution ALEX ([facility]) tizanidine 2 MG Oral Tablet ALEX ([facility]) terbinafine 250 MG Oral Tablet ALEX ([facility]) Sulfamethoxazole 800 MG / Trimethoprim 160 MG Oral Tablet ALEX ([facility]) sildenafil 100 MG Oral Tablet ALEX ([facility]) Omeprazole 20 MG Delayed Release Oral Capsule ALEX ([facility]) Naproxen 500 MG Oral Tablet ALEX ([facility]) methylprednisolone 4 mg tablets in a dos e pack TAKE DOSE BRIJESH DIRECTED ON SHEET ALEX ([facility]) meloxicam 7.5 MG Oral Tablet ALEX ([facility]) Prednisone 20 MG Oral Tablet ALEX ([facility]) Omeprazole 20 MG Delayed Release Oral Capsule ALEX ([facility]) Naproxen 500 MG Oral Tablet ALEX ([facility]) methylprednisolone 4 mg tablets in a dos e pack TAKE DOSE BRIJESH DIRECTED ON SHEET ALEX ([facility]) meloxicam 7.5 MG Oral Tablet ALEX ([facility]) Ibuprofen 600 MG Oral Tablet ALEX ([facility]) gabapentin 300 MG Oral Capsule ALEX ([facility]) Furosemide 20 MG Oral Tablet ALEX ([facility]) Fluzone Quad 60 mcg (15 mcg x 4)/0.5 mL intramuscular susp. INJECT DIRECTED ALEX ([facility]) Escitalopram 20 MG Oral Tablet ALEX ([facility]) Escitalopram 10 MG Oral Tablet ALEX ([facility]) doxycycline hyclate 100 MG Oral Tablet ALEX ([facility]) Amoxicillin 875 MG / Clavulanate 125 MG Oral Tablet ALEX ([facility]) Acetaminophen 325 MG Oral Tablet ALEX ([facility]) Tobramycin 3 MG/ML Ophthalmic Solution ALEX ([facility]) tizanidine 2 MG Oral Tablet ALEX ([facility]) Prednisone 20 MG Oral Tablet ALEX ([facility]) Omeprazole 20 MG Delayed Release Oral Capsule ALEX ([facility]) Naproxen 500 MG Oral Tablet ALEX ([facility]) methylprednisolone 4 mg tablets in a dos e pack TAKE DOSE BRIJESH DIRECTED ON SHEET ALEX ([facility]) meloxicam 7.5 MG Oral Tablet ALEX ([facility]) Ibuprofen 600 MG Oral Tablet ALEX ([facility]) gabapentin 300 MG Oral Capsule ALEX ([facility]) Furosemide 20 MG Oral Tablet ALEX ([facility]) Fluzone Quad 60 mcg (15 mcg x 4)/0.5 mL intramuscular susp. INJECT DIRECTED ALEX ([facility]) Escitalopram 20 MG Oral Tablet ALEX ([facility]) Escitalopram 10 MG Oral Tablet ALEX ([facility]) doxycycline hyclate 100 MG Oral Tablet ALEX ([facility]) Amoxicillin 875 MG / Clavulanate 125 MG Oral Tablet ALEX ([facility]) Acetaminophen 325 MG Oral Tablet ALEX ([facility]) Tobramycin 3 MG/ML Ophthalmic Solution ALEX ([facility]) tizanidine 2 MG Oral Tablet ALEX ([facility]) Prednisone 20 MG Oral Tablet ALEX ([facility]) Naproxen 500 MG Oral Tablet ALEX ([facility]) methylprednisolone 4 mg tablets in a dos e pack TAKE DOSE BRIJESH DIRECTED ON SHEET ALEX ([facility]) meloxicam 7.5 MG Oral Tablet ALEX ([facility]) gabapentin 300 MG Oral Capsule ALEX ([facility]) Furosemide 20 MG Oral Tablet ALEX ([facility]) Fluzone Quad 60 mcg (15 mcg x 4)/0.5 mL intramuscular susp. INJECT DIRECTED ALEX ([facility]) Escitalopram 10 MG Oral Tablet ALEX ([facility]) Tobramycin 3 MG/ML Ophthalmic Solution ALEX ([facility]) tizanidine 2 MG Oral Tablet ALEX ([facility]) Prednisone 20 MG Oral Tablet ALEX ([facility]) Naproxen 500 MG Oral Tablet ALEX ([facility]) methylprednisolone 4 mg tablets in a dos e pack TAKE DOSE BRIJESH DIRECTED ON SHEET ALEX ([facility]) meloxicam 7.5 MG Oral Tablet ALEX ([facility]) gabapentin 300 MG Oral Capsule ALEX ([facility]) Furosemide 20 MG Oral Tablet ALEX ([facility]) Fluzone Quad 60 mcg (15 mcg x 4)/0.5 mL intramuscular susp. INJECT DIRECTED ALEX ([facility]) Escitalopram 10 MG Oral Tablet ALEX ([facility]) doxycycline hyclate 100 MG Oral Tablet ALEX ([facility]) Amoxicillin 875 MG / Clavulanate 125 MG Oral Tablet ALEX ([facility]) Acetaminophen 325 MG Oral Tablet ALEX ([facility]) Tobramycin 3 MG/ML Ophthalmic Solution ALEX ([facility]) tizanidine 2 MG Oral Tablet ALEX ([facility]) Prednisone 20 MG Oral Tablet ALEX ([facility]) Naproxen 500 MG Oral Tablet ALEX ([facility]) methylprednisolone 4 mg tablets in a dos e pack TAKE DOSE BRIJESH DIRECTED ON SHEET ALEX ([facility]) meloxicam 7.5 MG Oral Tablet ALEX ([facility]) gabapentin 300 MG Oral Capsule ALEX ([facility]) Furosemide 20 MG Oral Tablet ALEX ([facility]) Fluzone Quad 60 mcg (15 mcg x 4)/0.5 mL intramuscular susp. INJECT DIRECTED ALEX ([facility]) Escitalopram 10 MG Oral Tablet ALEX ([facility]) doxycycline hyclate 100 MG Oral Tablet ALEX ([facility]) Amoxicillin 875 MG / Clavulanate 125 MG Oral Tablet ALEX ([facility]) Acetaminophen 325 MG Oral Tablet ALEX ([facility]) Tobramycin 3 MG/ML Ophthalmic Solution ALEX ([facility]) tizanidine 2 MG Oral Tablet ALEX ([facility]) methylprednisolone 4 mg tablets in a dos e pack TAKE DOSE BRIJESH DIRECTED ON SHEET ALEX ([facility]) Prednisone 20 MG Oral Tablet ALEX ([facility]) Naproxen 500 MG Oral Tablet ALEX ([facility]) methylprednisolone 4 mg tablets in a dos e pack TAKE DOSE BRIJESH DIRECTED ON SHEET ALEX ([facility]) meloxicam 7.5 MG Oral Tablet ALEX ([facility]) gabapentin 300 MG Oral Capsule ALEX ([facility]) Furosemide 20 MG Oral Tablet ALEX ([facility]) Fluzone Quad 60 mcg (15 mcg x 4)/0.5 mL intramuscular susp. INJECT DIRECTED ALEX ([facility]) Escitalopram 10 MG Oral Tablet ALEX ([facility]) doxycycline hyclate 100 MG Oral Tablet ALEX ([facility]) Amoxicillin 875 MG / Clavulanate 125 MG Oral Tablet ALEX ([facility]) Acetaminophen 325 MG Oral Tablet ALEX ([facility]) Tobramycin 3 MG/ML Ophthalmic Solution ALEX ([facility]) tizanidine 2 MG Oral Tablet ALEX ([facility]) Prednisone 20 MG Oral Tablet ALEX ([facility]) Naproxen 500 MG Oral Tablet ALEX ([facility]) methylprednisolone 4 mg tablets in a dos e pack TAKE DOSE BRIJESH DIRECTED ON SHEET ALEX ([facility]) meloxicam 7.5 MG Oral Tablet ALEX ([facility]) gabapentin 300 MG Oral Capsule ALEX ([facility]) Furosemide 20 MG Oral Tablet ALEX ([facility]) Fluzone Quad 60 mcg (15 mcg x 4)/0.5 mL intramuscular susp. INJECT DIRECTED ALEX ([facility]) Escitalopram 10 MG Oral Tablet ALEX ([facility]) doxycycline hyclate 100 MG Oral Tablet ALEX ([facility]) Amoxicillin 875 MG / Clavulanate 125 MG Oral Tablet ALEX ([facility]) Acetaminophen 325 MG Oral Tablet ALEX ([facility]) Tobramycin 3 MG/ML Ophthalmic Solution ALEX ([facility]) tizanidine 2 MG Oral Tablet ALEX ([facility]) Prednisone 20 MG Oral Tablet ALEX ([facility]) Naproxen 500 MG Oral Tablet ALEX ([facility]) methylprednisolone 4 mg tablets in a dos e pack TAKE DOSE BRIJESH DIRECTED ON SHEET ALEX ([facility]) meloxicam 7.5 MG Oral Tablet ALEX ([facility]) gabapentin 300 MG Oral Capsule ALEX ([facility]) Furosemide 20 MG Oral Tablet ALEX ([facility]) Fluzone Quad 60 mcg (15 mcg x 4)/0.5 mL intramuscular susp. INJECT DIRECTED ALEX ([facility]) Escitalopram 10 MG Oral Tablet ALEX ([facility]) doxycycline hyclate 100 MG Oral Tablet ALEX ([facility]) Amoxicillin 875 MG / Clavulanate 125 MG Oral Tablet ALEX ([facility]) Acetaminophen 325 MG Oral Tablet ALEX ([facility]) doxycycline hyclate 100 MG Oral Tablet ALEX ([facility]) Amoxicillin 875 MG / Clavulanate 125 MG Oral Tablet ALEX ([facility]) Acetaminophen 325 MG Oral Tablet ALEX ([facility]) Tobramycin 3 MG/ML Ophthalmic Solution ALEX ([facility]) tizanidine 2 MG Oral Tablet ALEX ([facility]) Prednisone 20 MG Oral Tablet ALEX ([facility]) Naproxen 500 MG Oral Tablet ALEX ([facility]) methylprednisolone 4 mg tablets in a dos e pack TAKE DOSE BRIJESH DIRECTED ON SHEET ALEX ([facility]) meloxicam 7.5 MG Oral Tablet ALEX ([facility]) gabapentin 300 MG Oral Capsule ALEX ([facility]) Furosemide 20 MG Oral Tablet ALEX ([facility]) Fluzone Quad 60 mcg (15 mcg x 4)/0.5 mL intramuscular susp. INJECT DIRECTED ALEX ([facility]) Escitalopram 10 MG Oral Tablet ALEX ([facility]) doxycycline hyclate 100 MG Oral Tablet ALEX ([facility]) Amoxicillin 875 MG / Clavulanate 125 MG Oral Tablet ALEX ([facility]) Acetaminophen 325 MG Oral Tablet ALEX ([facility]) Tobramycin 3 MG/ML Ophthalmic Solution ALEX ([facility]) tizanidine 2 MG Oral Tablet ALEX ([facility]) Prednisone 20 MG Oral Tablet ALEX ([facility]) Naproxen 500 MG Oral Tablet ALEX ([facility]) methylprednisolone 4 mg tablets in a dos e pack TAKE DOSE BRIJESH DIRECTED ON SHEET ALEX ([facility]) meloxicam 7.5 MG Oral Tablet ALEX ([facility]) gabapentin 300 MG Oral Capsule ALEX ([facility]) Furosemide 20 MG Oral Tablet ALEX ([facility]) Fluzone Quad 60 mcg (15 mcg x 4)/0.5 mL intramuscular susp. INJECT DIRECTED ALEX ([facility]) Escitalopram 10 MG Oral Tablet ALEX ([facility]) doxycycline hyclate 100 MG Oral Tablet ALEX ([facility]) Amoxicillin 875 MG / Clavulanate 125 MG Oral Tablet ALEX ([facility]) Acetaminophen 325 MG Oral Tablet ALEX ([facility])
--- OUTSIDE RECORDS SUMMARY | 2021-05-04 21:44 | CCD ---
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 Name Role Phone Jesus Mayfield MD Unavailable [...] Unavailable Jesus Mayfield MD Unavailable Unavailable Jesus Myafield MD Unavailable Unavailable Jesus Mayfield MD Unavailable [...] Unavailable Unavailable Sonia Power MD Unavailable Unavailable Soina Power MD Unavailable Unavailable Sonia Power MD [...] Unavailable Jesus Mayfield MD Unavailable Unavailable Jesus Myafield MD Unavailable Unavailable Jesus Mayfield MD Unavailable [...] Unavailable Jesus Mayfield MD Unavailable Unavailable Jesus Mayfiled MD Unavailable Unavailable MCELHERAN, HILARIO PA Unavailable [...] is protected by Article 27-F of the [place] [employer] law. If you continue you may have access to information: Regarding HIV / AIDS; Provided by facilities licensed or operated by the [place] Office of Mental Health; or Provided by the [place] Office for People With Developmental Disabilities. If such information is present, then the following [employer] mandated warning applies: This information has been [...] reactions NO KNOWN ALLERGIES NO KNOWN ALLERGIES [facility] Allergy to substance Allergy to substance Allergy to substance A[facility] ([facility]) Allergy to substance Allergy to substance Allergy to substance A[facility] ([facility]) Allergy to substance Allergy to substance Allergy to substance [facility] ([facility]) Allergy to substance Allergy to substance Allergy to substance A[facility] ([facility]) Allergy to substance Allergy to substance Allergy to substance A[facility] ([facility]) Allergy to substance Allergy to substance Allergy to substance A[facility] ([facility]) Allergy to substance Allergy to substance Allergy to substance A[facility] ([facility]) Allergy to substance Allergy to substance Allergy to substance A[facility] ([facility]) Family History Family Member Name Family Member Gender Family Member Status Date o f Status Description Data Source(s) Unknown Unknown Problem [facility] ([facility]) Encounters Encounter Providers Location Date Indications Data Source(s ) Outpatient 05/30/2021 12:00:00 AM [facility] Outpatient Attender: Nicola ARZATEeferrer: Blayne Mayfield MD 05/30/2021 12:00:00 AM [facility] Blayne Mayfield MD: [address] [place] [address], Ph. Attender: Blayne Mayfield MD [facility] Medical 05/02/2021 12:00:00 AM EDT ALEX ([facility]) Blayne Mayfield MD: [address] [place] [address] 504, Ph. Attender: Blayne Mayfield MD [facility] Medical 05/01/2021 12:00:00 AM EDT ALEX ([facility]) Blayne Mayfield MD: [address] [place] [address] 504, Ph. Attender: Blayne Mayfield MD [facility] Medical 05/01/2021 12:00:00 AM EDT ALEX ([facility]) Blayne Mayfield MD: [address] [place] [address], Ph. Attender: Blayne Mayfield MD [facility] Medical 04/25/2021 12:00:00 AM EDT ALEX ([facility]) Blayne Mayfield MD: [address] [place] [address]1 504, Ph. Attender: Blayne Mayfield MD [facility] Medical 04/25/2021 12:00:00 AM EDT ALEX ([facility]) Blayne Mayfield MD: [address] [place] [address], Ph. Attender: Blayne Mayfield MD [facility] Medical 04/25/2021 12:00:00 AM EDT ALEX ([facility]) Blayne Mayfield MD: [address] [place] [address], Ph. Attender: Blayne Mayfield MD [facility] Medical 04/18/2021 12:00:00 AM EDT ALEX ([facility]) Blayne Mayfield MD: [address] [place] [address]5 504, Ph. Attender: Blayne Mayfield MD [facility] Medical 04/18/2021 12:00:00 AM EDT ALEX ([facility]) Blayne Mayfield MD: [address] [place] [address] 504, Ph. Attender: Blayne Mayfield MD [facility] Medical 04/18/2021 12:00:00 AM EDT ALEX ([facility]) Blayne Mayfield MD: [address] [place] [address] 504, Ph. Attender: Blayne Mayfield MD [facility] Medical 04/18/2021 12:00:00 AM EDT ALEX ([facility]) Blayne Mayfield MD: [address] [place] [address] 504, Ph. Attender: Blayne Mayfield MD [facility] Medical 04/08/2021 12:00:00 AM EDT ALEX ([facility]) Blayne Mayfield MD: [address] [place] [address], Ph. Attender: Blayne Mayfield MD [facility] Medical 04/08/2021 12:00:00 AM EDT ALEX ([facility]) Blayne Mayfield MD: [address] [place] [address]5 504, Ph. Attender: Blayne Mayfield MD [facility] Medical 04/08/2021 12:00:00 AM EDT ALEX ([facility]) Blayne Mayfield MD: [address] [place] [address] 504, Ph. Attender: Blayne Mayfield MD [facility] Medical 04/08/2021 12:00:00 AM EDT ALEX ([facility]) Blayne Mayfield MD: [address] [place] [address]1 504, Ph. Attender: Blayne Mayfield MD [facility] Medical 04/08/2021 12:00:00 AM EDT ALEX ([facility]) Blayne Mayfield MD: [address] [place] [address]5 504, Ph. Attender: Blayne Mayfield MD [facility] Medical 04/08/2021 12:00:00 AM EDT ALEX ([facility]) Blayne Mayfield MD: [address] [place] [address]2 504, Ph. Attender: Blayne Mayfield MD [facility] Medical 04/04/2021 12:00:00 AM EDT ALEX ([facility]) Blayne Mayfield MD: [address] [place] [address] 504, Ph. Attender: Blayne Mayfield MD [facility] Medical 04/04/2021 12:00:00 AM EDT ALEX ([facility]) Blayne Mayfield MD: [address] [place] [address]0 [address], Ph. Attender: Blayne Mayfield MD [facility] Medical 04/04/2021 12:00:00 AM EDT ALEX ([facility]) Blayne Mayfield MD: [address] [place] [address], Ph. Attender: Blayne Mayfield MD [facility] Medical 04/04/2021 12:00:00 AM EDT ALEX ([facility]) Blayne Mayfield MD: [address] [place] [address] 504, Ph. Attender: Blayne Mayfield MD [facility] Medical 04/04/2021 12:00:00 AM EDT ALEX ([facility]) Blayne Mayfield MD: [address] [place] [address], Ph. Attender: Blayne Mayfield MD [facility] Medical 04/04/2021 12:00:00 AM EDT ALEX ([facility]) Blayne Mayfield MD: [address] [place] [address]1 504, Ph. Attender: Blayne Mayfield MD [facility] Medical 04/04/2021 12:00:00 AM EDT ALEX ([facility]) Outpatient Attender: Sonia Han/[place] 04/02/2021 01:23:00 AM EDT MEDENT ([facility]) Outpatient Attender: Sonia Han/[place] [facility] 04/01/2021 01:23:00 AM EDT MED[facility] ([facility]) Outpatient Attender: Sonia Han/[place] 03/31/2021 01:23:00 AM EDT MED[facility] ([facility]) Blayne Mayfield MD: [address] [place] [address], Ph. Attender: Blayne Mayfield MD [facility] Medical 03/28/2021 12:00:00 AM EDT ALEX ([facility]) Blayne Mayfield MD: [address] [place] [address] 504, Ph. Attender: Blayne Mayfield MD [facility] Medical 03/28/2021 12:00:00 AM EDT ALEX ([facility]) Blayne Mayfield MD: [address] [place] [address]0 [address], Ph. Attender: Blayne Mayfield MD [facility] Medical 03/28/2021 12:00:00 AM EDT ALEX ([facility]) Blayne Mayfield MD: [address] [place] [address], Ph. Attender: Blayne Mayfield MD [facility] Medical 03/28/2021 12:00:00 AM EDT ALEX ([facility]) Blayne Mayfield MD: [address] [place] [address], Ph. Attender: Blayne Mayfield MD [facility] Medical 03/28/2021 12:00:00 AM EDT ALEX ([facility]) Blayne Mayfield MD: [address] [place] [address], Ph. Attender: Blayne Mayfield MD [facility] Medical 03/28/2021 12:00:00 AM EDT ALEX ([facility]) Blayne Mayfield MD: [address] [place] [address], Ph. Attender: Blayne Mayfield MD [facility] Medical 03/28/2021 12:00:00 AM EDT ALEX ([facility]) Blayne Mayfield MD: [address] [place] [address], Ph. Attender: Blayne Mayfield MD [facility] Medical 03/25/2021 12:00:00 AM EDT ALEX ([facility]) Blayne Mayfield MD: [address] [place] [address]1 504, Ph. Attender: Blayne Mayfield MD [facility] Medical 03/25/2021 12:00:00 AM EDT ALEX ([facility]) Blayne Mayfield MD: [address] [place] [address], Ph. Attender: Blayne Mayfield MD [facility] Medical 03/25/2021 12:00:00 AM EDT ALEX ([facility]) Blayne Mayfield MD: [address] [place] [address] 504, Ph. Attender: Blayne Mayfield MD [facility] Medical 03/25/2021 12:00:00 AM EDT ALEX ([facility]) Blayne Mayfield MD: [address] [place] [address], Ph. Attender: Blayne Mayfield MD [facility] Medical 03/25/2021 12:00:00 AM EDT ALEX ([facility]) Blayne Mayfield MD: [address] [place] [address], Ph. Attender: Blayne Mayfield MD [facility] Medical 03/25/2021 12:00:00 AM EDT ALEX ([facility]) Blayne Mayfield MD: [address] [place] [address], Ph. Attender: Blayne Mayfield MD [facility] Medical 03/25/2021 12:00:00 AM EDT ALEX ([facility]) Blayne Mayfield MD: [address] [place] [address], Ph. Attender: Blayne Mafyield MD [facility] Medical 03/25/2021 12:00:00 AM EDT ALEX ([facility]) Blayne Mayfield MD: [address] [place] [address] 504, Ph. Attender: Blayne Mayfield MD [facility] Medical 03/18/2021 12:00:00 AM EDT ALEX ([facility]) Blayne Mayfield MD: [address] [place] [address], Ph. Attender: Blayne Mayfield MD [facility] Medical 03/18/2021 12:00:00 AM EDT ALEX ([facility]) Blayne Mayfield MD: [address] [place] [address] 504, Ph. Attender: Blayne Mayfield MD [facility] Medical 03/18/2021 12:00:00 AM EDT ALEX ([facility]) Blayne Mayfield MD: [address] [place] [address] 504, Ph. Attender: Blayne Mayfield MD [facility] Medical 03/18/2021 12:00:00 AM EDT ALEX ([facility]) Blayne Mayfield MD: [address] [place] [address] 504, Ph. Attender: Blayne Mayfield MD [facility] Medical 03/18/2021 12:00:00 AM EDT ALEX ([facility]) Blayne Mayfield MD: [address] [place] [address] 504, Ph. Attender: Blayne Mayfield MD [facility] Medical 03/18/2021 12:00:00 AM EDT ALEX ([facility]) Blayne Mayfield MD: [address] [place] [address] 504, Ph. Attender: Blayne Mayfield MD [facility] Medical 03/18/2021 12:00:00 AM EDT ALEX ([facility]) Blayne Mayfield MD: [address] [place] [address] 504, Ph. Attender: Blayne Mayfield MD [facility] Medical 03/18/2021 12:00:00 AM EDT ALEX ([facility]) Blayne Mayfield MD: [address] [place] [address]5 504, Ph. Attender: Blayne Mayfield MD [facility] Medical 03/18/2021 12:00:00 AM EDT ALEX ([facility]) Blayne Mayfield MD: [address] [place] [address]0 504, Ph. Attender: Blayne Mayfield MD [facility] Medical 03/10/2021 12:00:00 AM EDT ALEX ([facility]) Blayne Mayfield MD: [address] [place] [address] 504, Ph. Attender: Blayne Mayfield MD [facility] Medical 03/10/2021 12:00:00 AM EDT ALEX ([facility]) Blayne Mayfield MD: [address] [place] [address] 504, Ph. Attender: Blayne Mayfield MD [facility] Medical 03/10/2021 12:00:00 AM EDT ALEX ([facility]) Blayne Mayfield MD: [address] [place] [address]0 504, Ph. Attender: Blayne Mayfield MD [facility] Medical 03/10/2021 12:00:00 AM EDT ALEX ([facility]) Blayne Mayfield MD: [address] [place] [address]8 504, Ph. Attender: Blayne Mayfield MD [facility] Medical 03/10/2021 12:00:00 AM EDT ALEX ([facility]) Blayne Mayfield MD: [address] [place] [address] 504, Ph. Attender: Blayne Mayfield MD [facility] Medical 03/10/2021 12:00:00 AM EDT ALEX ([facility]) Blayne Mayfield MD: [address] [place] [address]2 504, Ph. Attender: Blayne Mayfield MD [facility] Medical 03/10/2021 12:00:00 AM EDT ALEX ([facility]) Blayne Mayfield MD: [address] [place] [address] 504, Ph. Attender: Blayne Mayfield MD [facility] Medical 03/10/2021 12:00:00 AM EDT ALEX ([facility]) Blayne Mayfield MD: [address] [place] [address]0 504, Ph. Attender: Blayne Mayfield MD [facility] Medical 03/10/2021 12:00:00 AM EDT ALEX ([facility]) Blayne Mayfield MD: [address] [place] [address]1 504, Ph. Attender: Blayne Mayfield MD [facility] Medical 02/26/2021 12:00:00 AM EDT ALEX ([facility]) Blayne Mayfield MD: [address] [place] [address]0 504, Ph. Attender: Balyne Mayfield MD [facility] Medical 02/26/2021 12:00:00 AM EDT ALEX ([facility]) Blayne Mayfield MD: [address] [place] [address], Ph. Attender: Blayne Mayfield MD [facility] Medical 02/26/2021 12:00:00 AM EDT ALEX ([facility]) Blayne Mayfield MD: [address] [place] [address] 504, Ph. Attender: Blayne Mayfield MD [facility] Medical 02/26/2021 12:00:00 AM EDT ALEX ([facility]) Blayne Mayfield MD: [address] [place] [address] 504, Ph. Attender: Blayne Mayfield MD [facility] Medical 02/26/2021 12:00:00 AM EDT ALEX ([facility]) Blayne Mayfield MD: [address] [place] [address] 504, Ph. Attender: Blayne Mayfield MD [facility] Medical 02/26/2021 12:00:00 AM EDT ALEX ([facility]) Blayne Mayfield MD: [address] [place] [address] 504, Ph. Attender: Blayne Mayfield MD [facility] Medical 02/26/2021 12:00:00 AM EDT ALEX ([facility]) Blayne Mayfield MD: [address] [place] [address]7 504, Ph. Attender: Blayne Mayfield MD [facility] Medical 02/26/2021 12:00:00 AM EDT ALEX ([facility]) Blayne Mayfield MD: [address] [place] [address]0 504, Ph. Attender: Blayne Mayfield MD [facility] Medical 02/26/2021 12:00:00 AM EDT ALEX ([facility]) Blayne Mayfield MD: [address] [place] [address] 504, Ph. Attender: Blayne Mayfield MD [facility] Medical 02/26/2021 12:00:00 AM EDT ALEX ([facility]) Blayne Mayfield MD: [address] [place] [address] 504, Ph. Attender: Blayen Mayfield MD [facility] Medical 02/05/2021 12:00:00 AM EDT ALEX ([facility]) Blayne Mayfield MD: [address] [place] [address]0 504, Ph. Attender: Blayne Mayfield MD [facility] Medical 02/05/2021 12:00:00 AM EDT ALEX ([facility]) Blayne Mayfield MD: [address] [place] [address], Ph. Attender: Blayne Mayfield MD [facility] Medical 02/05/2021 12:00:00 AM EDT ALEX ([facility]) Blayne Mayfield MD: [address] [place] [address]3 504, Ph. Attender: Blayne Mayfield MD [facility] Medical 02/05/2021 12:00:00 AM EDT ALEX ([facility]) Blayne Mayfield MD: [address] [place] [address]2 504, Ph. Attender: Blayne Mayfield MD [facility] Medical 02/05/2021 12:00:00 AM EDT ALEX ([facility]) Blayne Mayfield MD: [address] [place] [address] 504, Ph. Attender: Blayne Mayfield MD [facility] Medical 02/05/2021 12:00:00 AM EDT ALEX ([facility]) Blayne Mayfield MD: [address] [place] [address] 504, Ph. Attender: Blayne Mayfield MD [facility] Medical 02/05/2021 12:00:00 AM EDT ALEX ([facility]) Blayne Mayfield MD: [address] [place] [address] 504, Ph. Attender: Blayne Mayfield MD [facility] Medical 02/05/2021 12:00:00 AM EDT ALEX ([facility]) Blayne Mayfield MD: [address] [place] [address] 504, Ph. Attender: Blayne Mayfield MD [facility] Medical 02/05/2021 12:00:00 AM EDT ALEX ([facility]) Blayne Mayfield MD: [address] [place] [address]1 504, Ph. Attender: Blayne Mayfield MD [facility] Medical 02/05/2021 12:00:00 AM EDT ALEX ([facility]) Blayne Mayfield MD: [address] [place] [address]1 504, Ph. Attender: Blayne Mayfield MD [facility] Medical 02/05/2021 12:00:00 AM EDT ALEX ([facility]) Blayne Mayfield MD: [address] [place] [address] 504, Ph. Attender: Blayne Mayfield MD [facility] Medical 01/22/2021 12:00:00 AM EDT ALEX ([facility]) Blayne Mayfield MD: [address] [place] [address] 504, Ph. Attender: Blayne Mafyield MD [facility] Medical 01/22/2021 12:00:00 AM EDT ALEX ([facility]) Blayne Mayfield MD: [address] [place] [address]0 504, Ph. Attender: Blayne Mayfield MD [facility] Medical 01/22/2021 12:00:00 AM EDT ALEX ([facility]) Blayne Mayfield MD: [address] [place] [address]4 504, Ph. Attender: Blayne Mayfield MD [facility] Medical 01/22/2021 12:00:00 AM EDT ALEX ([facility]) Blayne Mayfield MD: [address] [place] [address] 504, Ph. Attender: Blayne Mayfield MD [facility] Medical 01/22/2021 12:00:00 AM EDT ALEX ([facility]) Blayne Mayfield MD: [address] [place] [address]3 504, Ph. Attender: Blayne Mayfield MD [facility] Medical 01/22/2021 12:00:00 AM EDT ALEX ([facility]) Blayne Mayfield MD: [address] [place] [address]0 504, Ph. Attender: Blayne Mayfield MD [facility] Medical 01/22/2021 12:00:00 AM EDT ALEX ([facility]) Blayne Mayfield MD: [address] [place] [address]4 504, Ph. Attender: Blayne Mayfield MD [facility] Medical 01/22/2021 12:00:00 AM EDT ALEX ([facility]) Blayne Mayfield MD: [address] [place] [address] 504, Ph. Attender: Blayne Mayfield MD [facility] Medical 01/22/2021 12:00:00 AM EDT ALEX ([facility]) Blayne Mayfield MD: [address] [place] [address] 504, Ph. Attender: Blayne Mayfield MD [facility] Medical 01/22/2021 12:00:00 AM EDT ALEX ([facility]) Blayne Mayfield MD: [address] [place] [address]5 504, Ph. Attender: Blayne Mayfield MD [facility] Medical 01/22/2021 12:00:00 AM EDT ALEX ([facility]) Blayne Mayfield MD: [address] [place] [address]2 504, Ph. Attender: Blayne Mayfield MD [facility] Medical 01/22/2021 12:00:00 AM EDT ALEX ([facility]) Blayne Mayfield MD: [address] [place] [address] 504, Ph. Attender: Blayne Mayfield MD [facility] Medical 01/08/2021 12:00:00 AM EDT ALEX ([facility]) Blayne Mayfield MD: [address] [place] [address]4 504, Ph. Attender: Blayne Mayfield MD [facility] Medical 01/08/2021 12:00:00 AM EDT ALEX ([facility]) Blayne Mayfield MD: [address] [place] [address]4 504, Ph. Attender: Blayne Mayfield MD [facility] Medical 01/08/2021 12:00:00 AM EDT ALEX ([facility]) Blayne Mayfield MD: [address] [place] [address]4 504, Ph. Attender: Blayne Mayfield MD [facility] Medical 01/08/2021 12:00:00 AM EDT ALEX ([facility]) Blayne Mayfield MD: [address] [place] [address]2 504, Ph. Attender: Blayne Mayfield MD [facility] Medical 01/08/2021 12:00:00 AM EDT ALEX ([facility]) Blayne Mayfield MD: [address] [place] [address] 504, Ph. Attender: Blayne Mayfield MD [facility] Medical 01/08/2021 12:00:00 AM EDT ALEX ([facility]) Blayne Mayfield MD: [address] [place] [address] 504, Ph. Attender: Blayne Mayfield MD [facility] Medical 01/08/2021 12:00:00 AM EDT ALEX ([facility]) Blayne Mayfield MD: [address] [place] [address]0 504, Ph. Attender: Blayne Mayfield MD [facility] Medical 01/08/2021 12:00:00 AM EDT ALEX ([facility]) Blayne Mayfield MD: [address] [place] [address]4 504, Ph. Attender: Blayne Mayfield MD [facility] Medical 01/08/2021 12:00:00 AM EDT ALEX ([facility]) Blayne Mayfield MD: [address] [place] [address]4 504, Ph. Attender: Blayne Mayfield MD [facility] Medical 01/08/2021 12:00:00 AM EDT ALEX ([facility]) Blayne Mayfield MD: [address] [place] [address]5 504, Ph. Attender: Blayne Mayfield MD [facility] Medical 01/08/2021 12:00:00 AM EDT ALEX ([facility]) Blayne Mayfield MD: [address] [place] [address]7 504, Ph. Attender: Blayne Mayfield MD [facility] Medical 01/08/2021 12:00:00 AM EDT ALEX ([facility]) Blayne Mayfield MD: [address] [place] [address]8 504, Ph. Attender: Blayne Mayfield MD [facility] Medical 01/08/2021 12:00:00 AM EDT ALEX ([facility]) Blayne Mayfield MD: [address] [place] [address]3 504, Ph. Attender: Blayne Mayfield MD [facility] Medical 01/08/2021 12:00:00 AM EDT ALEX ([facility]) Blayne Mayfield MD: [address] [place] [address]6 504, Ph. Attender: Blayne Mayfield MD [facility] Medical 12/25/2020 12:00:00 AM EDT ALEX ([facility]) Blayne Mayfield MD: [address] [place] [address]8 504, Ph. Attender: Blayne Mayfield MD [facility] Medical 12/25/2020 12:00:00 AM EDT ALEX ([facility]) Blayne Mayfield MD: [address] [place] [address] 504, Ph. Attender: Blayne Mayfield MD [facility] Medical 12/25/2020 12:00:00 AM EDT ALEX ([facility]) Blayne Mayfield MD: [address] [place] [address] 504, Ph. Attender: Blayne Mayfield MD [facility] Medical 12/25/2020 12:00:00 AM EDT ALEX ([facility]) Blayne Mayfield MD: [address] [place] [address]1 504, Ph. Attender: Blayne Mayfield MD [facility] 12/25/2020 12:00:00 AM EDT ALEX ([facility]) Blayne Mayfield MD: [address] [place] [address]4 504, Ph. Attender: Blayne Mayfield MD [facility] 12/25/2020 12:00:00 AM EDT ALEX ([facility]) Blayne Mayfield MD: [address] [place] [address]0 504, Ph. Attender: Blayne Mayfield MD [facility] 12/25/2020 12:00:00 AM EDT ALEX ([facility]) Blayne Mayfield MD: [address] [place] [address] 504, Ph. Attender: Blayne Mayfield MD [facility] Medical 12/25/2020 12:00:00 AM EDT ALEX ([facility]) Blayne Mayfield MD: [address] [place] [address]8 504, Ph. Attender: Blayne Mayfield MD [facility] Medical 12/25/2020 12:00:00 AM EDT ALEX ([facility]) Blayne Mayfield MD: [address] [place] [address]5 504, Ph. Attender: Blayne Mayfield MD [facility] Medical 12/25/2020 12:00:00 AM EDT ALEX ([facility]) Blayne Mayfield MD: [address] [place] [address] 504, Ph. Attender: Blayne Mayfield MD [facility] 12/25/2020 12:00:00 AM EDT ALEX ([facility]) Blayne Mayfield MD: [address] [place] [address], Ph. Attender: Blayne Mayfield MD [facility] Medical 12/25/2020 12:00:00 AM EDT ALEX ([facility]) Blayne Mayfield MD: [address] [place] [address], Ph. Attender: Blayne Mayfield MD [facility] Medical 12/25/2020 12:00:00 AM EDT ALEX ([facility]) Blayne Mayfield MD: [address] [place] [address], Ph. Attender: Blayne Mayfield MD [facility] Medical 12/25/2020 12:00:00 AM EDT ALEX ([facility]) Blayne Mayfield MD: [address] [place] [address]2 504, Ph. Attender: Blayne Mayfield MD [facility] Medical 12/11/2020 12:00:00 AM EDT ALEX ([facility]) Blayne Mayfield MD: [address] [place] [address], Ph. Attender: Blayne Mayfield MD [facility] Medical 12/11/2020 12:00:00 AM EDT ALEX ([facility]) Blayne Mayfield MD: [address] [place] [address], Ph. Attender: Blayne Mayfield MD [facility] Medical 12/11/2020 12:00:00 AM EDT ALEX ([facility]) Blayne Mayfield MD: [address] [place] [address], Ph. Attender: Blayne Mayfield MD [facility] 12/11/2020 12:00:00 AM EDT ALEX ([facility]) Blayne Mayfield MD: [address] [place] [address]9 504, Ph. Attender: Blayne Mayfield MD [facility] 12/11/2020 12:00:00 AM EDT ALEX ([facility]) Blayne Mayfield MD: [address] [place] [address] 504, Ph. Attender: Blayne Mayfield MD [facility] 12/11/2020 12:00:00 AM EDT ALEX ([facility]) Blayne Mayfield MD: [address] [place] [address]1 504, Ph. Attender: Blayne Mayfield MD [facility] 12/11/2020 12:00:00 AM EDT ALEX ([facility]) Blayne Mayfield MD: [address] [place] [address]1 504, Ph. Attender: Blayne Mayfield MD [facility] 12/11/2020 12:00:00 AM EDT ALEX ([facility]) Blayne Mayfield MD: [address] [place] [address]0 504, Ph. Attender: Blayne Mayfield MD [facility] Medical 12/11/2020 12:00:00 AM EDT ALEX ([facility]) Blayne Mayfield MD: [address] [place] [address], Ph. Attender: Blayne Mayfield MD [facility] 12/11/2020 12:00:00 AM EDT ALEX ([facility]) Blayne Mayfield MD: [address] [place] [address], Ph. Attender: Blayne Mayfield MD [facility] Medical 12/11/2020 12:00:00 AM EDT ALEX ([facility]) Blayne Mayfield MD: [address] [place] [address], Ph. Attender: Blayne Mayfield MD [facility] 12/11/2020 12:00:00 AM EDT ALEX ([facility]) Blayne Mayfield MD: [address] [place] [address]1 504, Ph. Attender: Blayne Mayfield MD [facility] 12/11/2020 12:00:00 AM EDT ALEX ([facility]) Blayne Mayfield MD: [address] [place] [address], Ph. Attender: Blayne Mayfield MD [facility] 12/11/2020 12:00:00 AM EDT ALEX ([facility]) Blayne Mayfield MD: [address] [place] [address]1 504, Ph. Attender: Blayne Mayfield MD [facility] Medical 12/11/2020 12:00:00 AM EDT ALEX ([facility]) Blayne Mayfield MD: [address] [place] [address], Ph. Attender: Blayne Mayfield MD [facility] Medical 11/27/2020 12:00:00 AM EDT ALEX ([facility]) Blayne Mayfield MD: [address] [place] [address], Ph. Attender: Blayne Mayfield MD [facility] Medical 11/27/2020 12:00:00 AM EDT ALEX ([facility]) Blayne Mayfield MD: [address] [place] [address], Ph. Attender: Blayne Mayfield MD [facility] Medical 11/27/2020 12:00:00 AM EDT ALEX ([facility]) Blayne Mayfield MD: [address] [place] [address], Ph. Attender: Blayne Mayfield MD [facility] Medical 11/27/2020 12:00:00 AM EDT ALEX ([facility]) Blayne Mayfield MD: [address] [place] [address], Ph. Attender: Blayne Mayfield MD [facility] Medical 11/27/2020 12:00:00 AM EDT ALEX ([facility]) Blayne Mayfield MD: [address] [place] [address], Ph. Attender: Blayne Mayfield MD [facility] Medical 11/27/2020 12:00:00 AM EDT ALEX ([facility]) Blayne Mayfield MD: [address] [place] [address], Ph. Attender: Blayne Mayfield MD [facility] Medical 11/27/2020 12:00:00 AM EDT ALEX ([facility]) Blayne Mayfield MD: [address] [place] [address], Ph. Attender: Blayne Mayfield MD [facility] Medical 11/27/2020 12:00:00 AM EDT ALEX ([facility]) Blayne Mayfield MD: [address] [place] [address], Ph. Attender: Blayne Mayfield MD [facility] Medical 11/27/2020 12:00:00 AM EDT ALEX ([facility]) Blayne Mayfield MD: [address] [place] [address], Ph. Attender: Blayne Mayfield MD [facility] Medical 11/27/2020 12:00:00 AM EDT ALEX ([facility]) Blayne Mayfield MD: [address], [place] [address], Ph. Attender: Blayne Mayfield MD [facility] Medical 11/27/2020 12:00:00 AM EDT ALEX ([facility]) Blayne Mayfield MD: [address] [place] [address], Ph. Attender: Blayne Mayfield MD [facility] Medical 11/27/2020 12:00:00 AM EDT ALEX ([facility]) Blayne Mayfield MD: [address] [place] [address], Ph. Attender: Blayne Mayfield MD [facility] Medical 11/27/2020 12:00:00 AM EDT ALEX ([facility]) Blayne Mayfield MD: [address] [place] [address], Ph. Attender: Blayne Mayfield MD [facility] 11/27/2020 12:00:00 AM EDT ALEX ([facility]) Blayne Mayfield MD: [address] [place] [address] 504, Ph. Attender: Blayne Mayfield MD [facility] 11/27/2020 12:00:00 AM EDT ALEX ([facility]) Blayne Mayfield MD: [address] [place] [address], Ph. Attender: Blayne Mayfield MD [facility] 11/27/2020 12:00:00 AM EDT ALEX ([facility]) Blayne Mayfield MD: [address] [place] [address], Ph. Attender: Blayne Mayfield MD [facility] Medical 11/25/2020 12:00:00 AM EDT ALEX ([facility]) Blayne Mayfield MD: [address] [place] [address], Ph. Attender: Blayne Mayfield MD [facility] Medical 11/25/2020 12:00:00 AM EDT ALEX ([facility]) Blayne Mayfield MD: [address] [place] [address], Ph. Attender: Blayne Mayfield MD [facility] Medical 11/25/2020 12:00:00 AM EDT ALEX ([facility]) Blayne Mayfield MD: [address] [place] [address], Ph. Attender: Blayne Mayfield MD [facility] Medical 11/25/2020 12:00:00 AM EDT ALEX ([facility]) Blayne Mayfield MD: [address] [place] [address], Ph. Attender: Blayne Mayfield MD [facility] Medical 11/25/2020 12:00:00 AM EDT ALEX ([facility]) Blayne Mayfield MD: [address] [place] [address], Ph. Attender: Blayne Mayfield MD [facility] Medical 11/25/2020 12:00:00 AM EDT ALEX ([facility]) Blayne Mayfield MD: [address] [place] [address], Ph. Attender: Blayne Mayfield MD [facility] Medical 11/25/2020 12:00:00 AM EDT ALEX ([facility]) Blayne Mayfield MD: [address] [place] [address]2 504, Ph. Attender: Blayne Mayfield MD [facility] 11/25/2020 12:00:00 AM EDT ALEX ([facility]) Blayne Mayfield MD: [address] [place] [address], Ph. Attender: Blayne Mayfield MD [facility] Medical 11/25/2020 12:00:00 AM EDT ALEX ([facility]) Blayne Mayfield MD: [address] [place] [address], Ph. Attender: Blayne Mayfield MD [facility] Medical 11/25/2020 12:00:00 AM EDT ALEX ([facility]) Blayne Mayfield MD: [address] [place] [address]5 [address], Ph. Attender: Blayne Mayfield MD [facility] 11/25/2020 12:00:00 AM EDT ALEX ([facility]) Blayne Mayfield MD: [address] [place] [address], Ph. Attender: Blayne Mayfield MD [facility] Medical 11/25/2020 12:00:00 AM EDT ALEX ([facility]) Blayne Mayfield MD: [address] [place] [address] 504, Ph. Attender: Blayne Mayfield MD [facility] Medical 11/25/2020 12:00:00 AM EDT ALEX ([facility]) Blayne Mayfield MD: [address] [place] [address], Ph. Attender: Blayne Mayfield MD [facility] Medical 11/25/2020 12:00:00 AM EDT ALEX ([facility]) Blayne Mayfield MD: [address] [place] [address], Ph. Attender: Blayne Mayfield MD [facility] 11/25/2020 12:00:00 AM EDT ALEX ([facility]) Blayne Mayfield MD: [address] [place] [address] 504, Ph. Attender: Blayne Mayfield MD [facility] 11/25/2020 12:00:00 AM EDT ALEX ([facility]) Blayne Mayfield MD: [address] [place] [address], Ph. Attender: Blayne Mayfield MD [facility] Medical 11/25/2020 12:00:00 AM EDT ALEX ([facility]) Blayne Mayfield MD: [address] [place] [address], Ph. Attender: Blayne Mayfield MD [facility] Medical 09/19/2020 12:00:00 AM EST ALEX ([facility]) Blayne Mayfield MD: [address] [place] [address] 504, Ph. Attender: Blayne Mayfield MD [facility] Medical 09/19/2020 12:00:00 AM EST ALEX ([facility]) Blayne Mayfield MD: [address] [place] [address] 504, Ph. Attender: Blayne Mayfield MD [facility] 09/19/2020 12:00:00 AM EST ALEX ([facility]) Blayne Mayfield MD: [address] [place] [address], Ph. Attender: Blayne Mayfield MD [facility] Medical 09/19/2020 12:00:00 AM EST ALEX ([facility]) Blayne Mayfield MD: [address] [place] [address]1 504, Ph. Attender: Blayne Mayfield MD [facility] Medical 09/19/2020 12:00:00 AM EST ALEX ([facility]) Blayne Mayfield MD: [address] [place] [address] 504, Ph. Attender: Blayne Mayfield MD [facility] Medical 09/19/2020 12:00:00 AM EST ALEX ([facility]) Blayne Mayfield MD: [address] [place] [address] 504, Ph. Attender: Blayne Mayfield MD [facility] Medical 09/19/2020 12:00:00 AM EST ALEX ([facility]) Blayne Mayfield MD: [address] [place] [address]0 504, Ph. Attender: Blayne Mayfield MD [facility] Medical 09/19/2020 12:00:00 AM EST ALEX ([facility]) Blayne Mayfield MD: [address] [place] [address]5 504, Ph. Attender: Blayne Mayfield MD [facility] Medical 09/19/2020 12:00:00 AM EST ALEX ([facility]) Blayne Mayfield MD: [address] [place] [address]2 504, Ph. Attender: Blayne Mayfield MD [facility] Medical 09/19/2020 12:00:00 AM EST ALEX ([facility]) Blayne Mayfield MD: [address] [place] [address], Ph. Attender: Blayne Mayfield MD [facility] Medical 09/19/2020 12:00:00 AM EST ALEX ([facility]) Blayne Mayfield MD: [address] [place] [address] 504, Ph. Attender: Blayne Mayfield MD [facility] Medical 09/19/2020 12:00:00 AM EST ALEX ([facility]) Blayne Mayfield MD: [address] [place] [address] 504, Ph. Attender: Blayne Mayfield MD [facility] Medical 09/19/2020 12:00:00 AM EST ALEX ([facility]) Blayne Mayfield MD: [address] [place] [address] 504, Ph. Attender: Blayne Mayfield MD [facility] Medical 09/19/2020 12:00:00 AM EST ALEX ([facility]) Blayne Mayfield MD: [address] [place] [address], Ph. Attender: Blayne Mayfield MD [facility] Medical 09/19/2020 12:00:00 AM EST ALEX ([facility]) Blayne Mayfield MD: [address] [place] [address], Ph. Attender: Blayne Mayfield MD [facility] Medical 09/19/2020 12:00:00 AM EST ALEX ([facility]) Blayne Mayfield MD: [address] [place] [address] 504, Ph. Attender: Blayne Mayfield MD [facility] 09/19/2020 12:00:00 AM EST ALEX ([facility]) Blayne Mayfield MD: [address] [place] [address]2 504, Ph. Attender: Blayne Mayfield MD [facility] Medical 09/19/2020 12:00:00 AM EST ALEX ([facility]) Blayne Mayfield MD: [address] [place] [address] 504, Ph. Attender: Blayne Mayfield MD [facility] Medical 05/08/2020 12:00:00 AM EDT ALEX ([facility]) Blayne Mayfield MD: [address] [place] [address]0 504, Ph. Attender: Blayne Mayfield MD [facility] 05/08/2020 12:00:00 AM EDT ALEX ([facility]) Blayne Mayfield MD: [address] [place] [address], Ph. Attender: Blayne Mayfield MD [facility] 05/08/2020 12:00:00 AM EDT ALEX ([facility]) Blayne Mayfield MD: [address] [place] [address] 504, Ph. Attender: Blayne Mayfield MD [facility] 05/08/2020 12:00:00 AM EDT ALEX ([facility]) Blayne Mayfield MD: [address] [place] [address]0 504, Ph. Attender: Blayne Mayfield MD [facility] 05/08/2020 12:00:00 AM EDT ALEX ([facility]) Blayne Mayfield MD: [address] [place] [address]3 504, Ph. Attender: Blayne Mayfield MD [facility] 05/08/2020 12:00:00 AM EDT ALEX ([facility]) Blayne Mayfield MD: [address] [place] [address], Ph. Attender: Blayne Mayfield MD [facility] 05/08/2020 12:00:00 AM EDT ALEX ([facility]) Blayne Mayfield MD: [address] [place] [address], Ph. Attender: Blayne Mayfield MD [facility] 05/08/2020 12:00:00 AM EDT ALEX ([facility]) Blayne Mayfield MD: [address] [place] [address], Ph. Attender: Blayne Mayfield MD [facility] 05/08/2020 12:00:00 AM EDT ALEX ([facility]) Blayne Mayfield MD: [address] [place] [address] 504, Ph. Attender: Blayne Mayfield MD [facility] 05/08/2020 12:00:00 AM EDT ALEX ([facility]) Blayne Mayfield MD: [address] [place] [address] 504, Ph. Attender: Blayne Mayfield MD [facility] 05/08/2020 12:00:00 AM EDT ALEX ([facility]) Blayne Mayfield MD: [address] [place] [address] 504, Ph. Attender: Blayne Mayfield MD [facility] 05/08/2020 12:00:00 AM EDT ALEX ([facility]) Blayne Mayfield MD: [address] [place] [address] 504, Ph. Attender: Blayne Mayfield MD [facility] 05/08/2020 12:00:00 AM EDT ALEX ([facility]) Blayne Mayfield MD: [address] [place] [address]8 504, Ph. Attender: Blayne Mayfield MD [facility] 05/08/2020 12:00:00 AM EDT ALEX ([facility]) Blayne Mayfield MD: [address] [place] [address]4 504, Ph. Attender: Blayne Mayfield MD [facility] 05/08/2020 12:00:00 AM EDT ALEX ([facility]) Blayne Mayfield MD: [address] [place] [address]3 504, Ph. Attender: Blayne Mayfield MD [facility] 05/08/2020 12:00:00 AM EDT ALEX ([facility]) Blayne Mayfield MD: [address] [place] [address]4 504, Ph. Attender: Blayne Mayfield MD [facility] 05/08/2020 12:00:00 AM EDT ALEX ([facility]) Blayne Mayfield MD: [address] [place] [address]5 504, Ph. Attender: Blayne Mayfield MD [facility] 05/08/2020 12:00:00 AM EDT ALEX ([facility]) Blayne Mayfield MD: [address] [place] [address]7 504, Ph. Attender: Blayne Mayfield MD [facility] 05/08/2020 12:00:00 AM EDT ALEX ([facility]) Outpatient Attender: HILARIO ALEJANDRA Physical Therapy 04/25/2020 03:30:00 PM EDT [facility] ([facility]) Outpatient Attender: Blayne Mayfield MD 04/09/2020 08:31:05 AM EDT [facility] Outpatient Attender: Blayne Mayfield MD 04/09/2020 08:31:02 AM EDT [facility] Outpatient Attender: Blayne Mayfield MD FP 03/28/2020 05:19:00 PM EDT [facility] Outpatient Attender: Blayne Mayfield MD FP 03/27/2020 03:39:01 PM EDT [facility] Outpatient Attender: Blayne Mayfield MD FP 03/26/2020 02:59:01 PM EDT [facility] Outpatient Attender: HILARIO ALEJANDRA Physical Therapy 03/20/2020 02:00:00 PM EDT [facility] ([facility]) Outpatient Attender: Blayne Mayfield MD 03/14/2020 11:23:00 AM EDT [facility] Outpatient Attender: Blayne Mayfield MD 03/11/2020 08:53:01 AM EDT [facility] Immunizations Vaccine Date Status Description Data Source(s) COVID-19, mRNA, LNP-S, PF, 100 mcg/0.5 mL dose 11/22/2020 12 :00:00 AM EDT completed 11/22/2020 [facility] ([facility]) COVID-19, mRNA, LNP-S, PF, 100 mcg/0.5 mL dose 11/22/2020 12 :00:00 AM EDT completed 11/22/2020 [facility]) COVID-19, mRNA, LNP-S, PF, 100 mcg/0.5 mL dose 11/22/2020 12 :00:00 AM EDT completed 11/22/2020 [facility]) COVID-19, mRNA, LNP-S, PF, 100 mcg/0.5 mL dose 11/22/2020 12 :00:00 AM EDT completed 11/22/2020 [facility] ([facility]) COVID-19, mRNA, LNP-S, PF, 100 mcg/0.5 mL dose 11/22/2020 12 :00:00 AM EDT completed 11/22/2020 [facility] ([facility]) COVID-19, mRNA, LNP-S, PF, 100 mcg/0.5 mL dose 11/22/2020 12 :00:00 AM EDT completed 11/22/2020 [facility] ([facility]) COVID-19, mRNA, LNP-S, PF, 100 mcg/0.5 mL dose 11/22/2020 12 :00:00 AM EDT completed 11/22/2020 [facility] ([facility]) COVID-19, mRNA, LNP-S, PF, 100 mcg/0.5 mL dose 11/22/2020 12 :00:00 AM EDT completed 11/22/2020 [facility] ([facility]) COVID-19, mRNA, LNP-S, PF, 100 mcg/0.5 mL dose 11/22/2020 12 :00:00 AM EDT completed 11/22/2020 [facility] ([facility]) COVID-19, mRNA, LNP-S, PF, 100 mcg/0.5 mL dose 11/22/2020 12 :00:00 AM EDT completed 11/22/2020 [facility]) COVID-19, mRNA, LNP-S, PF, 100 mcg/0.5 mL dose 11/22/2020 12 :00:00 AM EDT completed 11/22/2020 [facility] ([facility]) COVID-19, mRNA, LNP-S, PF, 100 mcg/0.5 mL dose 11/22/2020 12 :00:00 AM EDT completed 11/22/2020 [facility] ([facility]) COVID-19, mRNA, LNP-S, PF, 100 mcg/0.5 mL dose 11/22/2020 12 :00:00 AM EDT completed 11/22/2020 [facility] ([facility]) COVID-19, mRNA, LNP-S, PF, 100 mcg/0.5 mL dose 11/22/2020 12 :00:00 AM EDT completed 11/22/2020 [facility] ([facility]) COVID-19, mRNA, LNP-S, PF, 100 mcg/0.5 mL dose 11/22/2020 12 :00:00 AM EDT completed 11/22/2020 [facility]) COVID-19, mRNA, LNP-S, PF, 100 mcg/0.5 mL dose 11/22/2020 12 :00:00 AM EDT completed 11/22/2020 [facility] ([facility]) COVID-19, mRNA, LNP-S, PF, 100 mcg/0.5 mL dose 11/22/2020 12 :00:00 AM EDT completed 11/22/2020 [facility] ([facility]) COVID-19 VACCINE Moderna 11/22/2020 12:00:00 AM EDT completed [facility] Vaccine Series Complete: YESThis Data wa s Submitted to [facility] Via [employer]. COVID-19 VACC,MRNA(MODERNA)/PF 11/22/2020 12:00:00 AM EDT completed Farrah Kramer COVID-19, mRNA, LNP-S, PF, 100 mcg/0.5 mL dose 10/23/2020 12 :00:00 AM EDT completed 10/23/2020 [facility] ([facility]) COVID-19, mRNA, LNP-S, PF, 100 mcg/0.5 mL dose 10/23/2020 12 :00:00 AM EDT completed 10/23/2020 [facility] ([facility]) COVID-19, mRNA, LNP-S, PF, 100 mcg/0.5 mL dose 10/23/2020 12 :00:00 AM EDT completed 10/23/2020 [facility] ([facility]) COVID-19, mRNA, LNP-S, PF, 100 mcg/0.5 mL dose 10/23/2020 12 :00:00 AM EDT completed 10/23/2020 [facility] ([facility]) COVID-19, mRNA, LNP-S, PF, 100 mcg/0.5 mL dose 10/23/2020 12 :00:00 AM EDT completed 10/23/2020 [facility] ([facility]) COVID-19, mRNA, LNP-S, PF, 100 mcg/0.5 mL dose 10/23/2020 12 :00:00 AM EDT completed 10/23/2020 [facility] ([facility]) COVID-19, mRNA, LNP-S, PF, 100 mcg/0.5 mL dose 10/23/2020 12 :00:00 AM EDT completed 10/23/2020 [facility] ([facility]) COVID-19, mRNA, LNP-S, PF, 100 mcg/0.5 mL dose 10/23/2020 12 :00:00 AM EDT completed 10/23/2020 [facility] ([facility]) COVID-19, mRNA, LNP-S, PF, 100 mcg/0.5 mL dose 10/23/2020 12 :00:00 AM EDT completed 10/23/2020 [facility] ([facility]) COVID-19, mRNA, LNP-S, PF, 100 mcg/0.5 mL dose 10/23/2020 12 :00:00 AM EDT completed 10/23/2020 [facility] ([facility]) COVID-19, mRNA, LNP-S, PF, 100 mcg/0.5 mL dose 10/23/2020 12 :00:00 AM EDT completed 10/23/2020 [facility] ([facility]) COVID-19, mRNA, LNP-S, PF, 100 mcg/0.5 mL dose 10/23/2020 12 :00:00 AM EDT completed 10/23/2020 [facility] ([facility]) COVID-19, mRNA, LNP-S, PF, 100 mcg/0.5 mL dose 10/23/2020 12 :00:00 AM EDT completed 10/23/2020 [facility] ([facility]) COVID-19, mRNA, LNP-S, PF, 100 mcg/0.5 mL dose 10/23/2020 12 :00:00 AM EDT completed 10/23/2020 [facility] ([facility]) COVID-19, mRNA, LNP-S, PF, 100 mcg/0.5 mL dose 10/23/2020 12 :00:00 AM EDT completed 10/23/2020 [facility] ([facility]) COVID-19, mRNA, LNP-S, PF, 100 mcg/0.5 mL dose 10/23/2020 12 :00:00 AM EDT completed 10/23/2020 [facility] ([facility]) COVID-19, mRNA, LNP-S, PF, 100 mcg/0.5 mL dose 10/23/2020 12 :00:00 AM EDT completed 10/23/2020 [facility] ([facility]) COVID-19 VACCINE Moderna 10/23/2020 12:00:00 AM EDT completed [facility] Vaccine Series Complete: NOThis Data was Submitted to [facility] [employer]. COVID-19 VACCINE, MRNA-1273, LNP-S (MODERNA)/PF 10/23/2020 1 [...] salmeterol 0.05 MG/ACTUAT Dry Powder Inhaler [facility] ([facility]) 60 ACTUAT Fluticasone propionate 0.25 MG /ACTUAT / salmeterol 0.05 MG/ACTUAT Dry Powder Inhaler fluticasone 250 mcg-salmeterol 50 mcg/dose blistr powdr for inhalation USE DIRECTED fluticasone 250 mcg-salmeterol 50 mcg/do se blistr powdr for inhalation USE DIRECTED 11/25/2020 12:00:00 AM EDT completed 60 ACTUAT fluticason e propionate 0.25 MG/ACTUAT / salmeterol 0.05 MG/ACTUAT Dry Powder Inhaler ALEX ([facility]) 60 ACTUAT Fluticasone propionate 0.25 MG /ACTUAT / salmeterol 0.05 MG/ACTUAT Dry Powder Inhaler fluticasone 250 mcg-salmeterol 50 mcg/dose blistr powdr for inhalation USE DIRECTED fluticasone 250 mcg-salmeterol 50 mcg/do se blistr powdr for inhalation USE DIRECTED 11/25/2020 12:00:00 AM EDT completed 60 ACTUAT fluticason e propionate 0.25 MG/ACTUAT / salmeterol 0.05 MG/ACTUAT Dry Powder Inhaler ALEX ([facility]) 60 ACTUAT Fluticasone propionate 0.25 MG /ACTUAT / salmeterol 0.05 MG/ACTUAT Dry Powder Inhaler fluticasone 250 mcg-salmeterol 50 mcg/dose blistr powdr for inhalation USE DIRECTED fluticasone 250 mcg-salmeterol 50 mcg/do se blistr powdr for inhalation USE DIRECTED 11/25/2020 12:00:00 AM EDT completed 60 ACTUAT fluticason e propionate 0.25 MG/ACTUAT / salmeterol 0.05 MG/ACTUAT Dry Powder Inhaler ALEX ([facility]) 60 ACTUAT Fluticasone propionate 0.25 MG /ACTUAT / salmeterol 0.05 MG/ACTUAT Dry Powder Inhaler fluticasone 250 mcg-salmeterol 50 mcg/dose blistr powdr for inhalation USE DIRECTED fluticasone 250 mcg-salmeterol 50 mcg/do se blistr powdr for inhalation USE DIRECTED 11/25/2020 12:00:00 AM EDT completed 60 ACTUAT fluticason e propionate 0.25 MG/ACTUAT / salmeterol 0.05 MG/ACTUAT Dry Powder Inhaler ALEX ([facility]) 60 ACTUAT Fluticasone propionate 0.25 MG /ACTUAT / salmeterol 0.05 MG/ACTUAT Dry Powder Inhaler fluticasone 250 mcg-salmeterol 50 mcg/dose blistr powdr for inhalation USE DIRECTED fluticasone 250 mcg-salmeterol 50 mcg/do se blistr powdr for inhalation USE DIRECTED 11/25/2020 12:00:00 AM EDT completed 60 ACTUAT fluticason e propionate 0.25 MG/ACTUAT / salmeterol 0.05 MG/ACTUAT Dry Powder Inhaler ALEX ([facility]) 60 ACTUAT Fluticasone propionate 0.25 MG /ACTUAT / salmeterol 0.05 MG/ACTUAT Dry Powder Inhaler fluticasone 250 mcg-salmeterol 50 mcg/dose blistr powdr for inhalation USE DIRECTED fluticasone 250 mcg-salmeterol 50 mcg/do se blistr powdr for inhalation USE DIRECTED 11/25/2020 12:00:00 AM EDT completed 60 ACTUAT fluticason e propionate 0.25 MG/ACTUAT / salmeterol 0.05 MG/ACTUAT Dry Powder Inhaler ALEX ([facility]) 60 ACTUAT Fluticasone propionate 0.25 MG /ACTUAT / salmeterol 0.05 MG/ACTUAT Dry Powder Inhaler fluticasone 250 mcg-salmeterol 50 mcg/dose blistr powdr for inhalation USE DIRECTED fluticasone 250 mcg-salmeterol 50 mcg/do se blistr powdr for inhalation USE DIRECTED 11/25/2020 12:00:00 AM EDT completed 60 ACTUAT fluticason e propionate 0.25 MG/ACTUAT / salmeterol 0.05 MG/ACTUAT Dry Powder Inhaler ALEX ([facility]) 60 ACTUAT Fluticasone propionate 0.25 MG /ACTUAT / salmeterol 0.05 MG/ACTUAT Dry Powder Inhaler fluticasone 250 mcg-salmeterol 50 mcg/dose blistr powdr for inhalation USE DIRECTED fluticasone 250 mcg-salmeterol 50 mcg/do se blistr powdr for inhalation USE DIRECTED 11/25/2020 12:00:00 AM EDT completed 60 ACTUAT fluticason e propionate 0.25 MG/ACTUAT / salmeterol 0.05 MG/ACTUAT Dry Powder Inhaler ALEX ([facility]) 60 ACTUAT Fluticasone propionate 0.25 MG /ACTUAT / salmeterol 0.05 MG/ACTUAT Dry Powder Inhaler fluticasone 250 mcg-salmeterol 50 mcg/dose blistr powdr for inhalation USE DIRECTED fluticasone 250 mcg-salmeterol 50 mcg/do se blistr powdr for inhalation USE DIRECTED 11/25/2020 12:00:00 AM EDT completed 60 ACTUAT fluticason e propionate 0.25 MG/ACTUAT / salmeterol 0.05 MG/ACTUAT Dry Powder Inhaler ALEX ([facility]) 60 ACTUAT Fluticasone propionate 0.25 MG /ACTUAT / salmeterol 0.05 MG/ACTUAT Dry Powder Inhaler fluticasone 250 mcg-salmeterol 50 mcg/dose blistr powdr for inhalation USE DIRECTED fluticasone 250 mcg-salmeterol 50 mcg/do se blistr powdr for inhalation USE DIRECTED 11/25/2020 12:00:00 AM EDT completed 60 ACTUAT fluticason e propionate 0.25 MG/ACTUAT / salmeterol 0.05 MG/ACTUAT Dry Powder Inhaler ALEX ([facility]) 60 ACTUAT Fluticasone propionate 0.25 MG /ACTUAT / salmeterol 0.05 MG/ACTUAT Dry Powder Inhaler fluticasone 250 mcg-salmeterol 50 mcg/dose blistr powdr for inhalation USE DIRECTED fluticasone 250 mcg-salmeterol 50 mcg/do se blistr powdr for inhalation USE DIRECTED 11/25/2020 12:00:00 AM EDT completed 60 ACTUAT fluticason e propionate 0.25 MG/ACTUAT / salmeterol 0.05 MG/ACTUAT Dry Powder Inhaler ALEX ([facility]) 60 ACTUAT Fluticasone propionate 0.25 MG /ACTUAT / salmeterol 0.05 MG/ACTUAT Dry Powder Inhaler fluticasone 250 mcg-salmeterol 50 mcg/dose blistr powdr for inhalation USE DIRECTED fluticasone 250 mcg-salmeterol 50 mcg/do se blistr powdr for inhalation USE DIRECTED 11/25/2020 12:00:00 AM EDT completed 60 ACTUAT fluticason e propionate 0.25 MG/ACTUAT / salmeterol 0.05 MG/ACTUAT Dry Powder Inhaler ALEX ([facility]) 60 ACTUAT Fluticasone propionate 0.25 MG /ACTUAT / salmeterol 0.05 MG/ACTUAT Dry Powder Inhaler fluticasone 250 mcg-salmeterol 50 mcg/dose blistr powdr for inhalation USE DIRECTED fluticasone 250 mcg-salmeterol 50 mcg/do se blistr powdr for inhalation USE DIRECTED 11/25/2020 12:00:00 AM EDT completed 60 ACTUAT fluticason e propionate 0.25 MG/ACTUAT / salmeterol 0.05 MG/ACTUAT Dry Powder Inhaler ALEX ([facility]) 60 ACTUAT Fluticasone propionate 0.25 MG /ACTUAT / salmeterol 0.05 MG/ACTUAT Dry Powder Inhaler fluticasone 250 mcg-salmeterol 50 mcg/dose blistr powdr for inhalation USE DIRECTED fluticasone 250 mcg-salmeterol 50 mcg/do se blistr powdr for inhalation USE DIRECTED 11/25/2020 12:00:00 AM EDT completed 60 ACTUAT fluticason e propionate 0.25 MG/ACTUAT / salmeterol 0.05 MG/ACTUAT Dry Powder Inhaler ALEX ([facility]) 60 ACTUAT Fluticasone propionate 0.25 MG /ACTUAT / salmeterol 0.05 MG/ACTUAT Dry Powder Inhaler fluticasone 250 mcg-salmeterol 50 mcg/dose blistr powdr for inhalation USE DIRECTED fluticasone 250 mcg-salmeterol 50 mcg/do se blistr powdr for inhalation USE DIRECTED 11/25/2020 12:00:00 AM EDT completed 60 ACTUAT fluticason e propionate 0.25 MG/ACTUAT / salmeterol 0.05 MG/ACTUAT Dry Powder Inhaler ALEX ([facility]) 60 ACTUAT Fluticasone propionate 0.25 MG /ACTUAT / salmeterol 0.05 MG/ACTUAT Dry Powder Inhaler fluticasone 250 mcg-salmeterol 50 mcg/dose blistr powdr for inhalation USE DIRECTED fluticasone 250 mcg-salmeterol 50 mcg/do se blistr powdr for inhalation USE DIRECTED 11/25/2020 12:00:00 AM EDT completed 60 ACTUAT fluticason e propionate 0.25 MG/ACTUAT / salmeterol 0.05 MG/ACTUAT Dry Powder Inhaler ALEX ([facility]) 150 mg 11/21/2020 12:00:00 AM EDT capsule [...] 03/2020 12:00:00 AM EDT active MEDENT ( [facility]) gabapentin 300 MG Oral Capsule Gabapentin 03/20/2020 12:00:00 AM EDT ORAL active MEDENT ([facility]) 300 mg 03/20/2020 12:00:00 [...] tobramycin 3 MG/ML Ophtha lmic Solution ALEX ([facility]) gabapentin 300 MG Oral Capsule gabapenti n [...] completed gabapentin 300 MG Oral Capsule ALEX ([facility]) Acetaminophen 325 MG Oral Tablet acetami nophen 325 mg tablet TAKE ONE TABLET BY MOUTH EVERY 6 HOURS NEEDED FOR PAIN acetaminophen 325 mg tablet TAKE ONE TABLET BY MOUTH EVERY 6 HOURS NEEDED FOR PAIN completed acetaminophen 325 MG Oral Tablet CASSEL ([facility]) Escitalopram 20 MG Oral Tablet escitalopram 20 mg tabl et escitalopram 20 mg tablet completed escitalopram 20 MG Oral Tablet CASSEL ([facility]) Prednisone 20 MG Oral Tablet prednisone 20 [...] completed prednisone 20 MG Oral Tablet ALEX ([facility]) Acetaminophen 325 MG Oral Tablet acetami nophen 325 mg tablet TAKE ONE TABLET BY MOUTH EVERY 6 HOURS NEEDED FOR PAIN acetaminophen 325 mg tablet TAKE ONE TABLET BY MOUTH EVERY 6 HOURS NEEDED FOR PAIN completed acetaminophen 325 MG Oral Tablet ALEX ([facility]) methylprednisolone 4 mg tablets in a dos e pack TAKE DOSE BRIJESH DIRECTED ON SHEET [id number] completed methylpre dnisolone 4 mg tablets in a dose pack ALEX ([facility]) Ibuprofen 600 MG Oral Tablet ibuprofen 6 00 mg tablet TAKE ONE TABLET BY MOUTH TWICE A DAY ibuprofen 600 mg tablet TAKE ONE TABLET BY MOUTH TWICE A DAY completed ibuprofen 600 MG Ora l Tablet CASSEL ([facility]) Escitalopram 10 MG Oral Tablet escitalop ac 10 mg tablet TAKE ONE TABLET BY MOUTH EVERY DAY escitalopram 10 mg tablet TAKE ONE TABLET BY MOUTH EVERY DAY completed escitalopram 1 0 MG Oral Tablet ALEX ([facility]) Tobramycin 3 MG/ML Ophthalmic Solution t obramycin 0.3 % eye drops INSTILL 2 DROPS INTO AFFECTED EYE S THREE TIMES A DAY FOR 7 DAYS tobramycin 0.3 % eye drops INSTILL 2 DROPS INTO AFFECTED EYE S THREE TIMES A DAY FOR 7 DAYS completed tobramycin 3 MG/ML Ophtha lmic Solution ALEX ([facility]) Tobramycin 3 MG/ML Ophthalmic Solution t obramycin 0.3 % eye drops INSTILL 2 DROPS INTO AFFECTED EYE S THREE TIMES A DAY FOR 7 DAYS tobramycin 0.3 % eye drops INSTILL 2 DROPS INTO AFFECTED EYE S THREE TIMES A DAY FOR 7 DAYS completed tobramycin 3 MG/ML Ophtha lmic Solution ALEX ([facility]) Escitalopram 10 MG Oral Tablet escitalop ac 10 mg tablet TAKE ONE TABLET BY MOUTH EVERY DAY escitalopram 10 mg tablet TAKE ONE TABLET BY MOUTH EVERY DAY completed escitalopram 1 0 MG Oral Tablet ALEX ([facility]) meloxicam 7.5 MG Oral Tablet meloxicam 7 .5 mg tablet TAKE ONE TABLET BY MOUTH EVERY DAY meloxicam 7.5 mg tablet TAKE ONE TABLET BY MOUTH EVERY DAY completed meloxicam 7.5 MG Oral Tablet ALEX ([facility]) Prednisone 20 MG Oral Tablet prednisone 20 [...] completed prednisone 20 MG Oral Tablet ALEX ([facility]) Amoxicillin 875 MG / Clavulanate 125 MG Oral Tablet amoxicillin 875 mg-potassium clavulanate 125 mg tablet TAKE ONE TABLET BY MOUTH TWICE A DAY FOR 14 DAYS amoxicillin 875 mg-potassium clavulanate 125 mg tablet TAKE ONE TABLET BY MOUTH TWICE A DAY FOR 14 DAYS completed amoxicillin 875 MG / clavulanate 125 MG Oral Tablet ALEX ([facility]) Acetaminophen 325 MG Oral Tablet acetami nophen 325 mg tablet TAKE ONE TABLET BY MOUTH EVERY 6 HOURS NEEDED FOR PAIN acetaminophen 325 mg tablet TAKE ONE TABLET BY MOUTH EVERY 6 HOURS NEEDED FOR PAIN completed acetaminophen 325 MG Oral Tablet ALEX ([facility]) gabapentin 300 MG Oral Capsule gabapenti n [...] completed gabapentin 300 MG Oral Capsule ALEX ([facility]) Sulfamethoxazole 800 MG / Trimethoprim 1 60 MG Oral Tablet sulfamethoxazole 800 mg-trimethoprim 160 mg tablet TAKE 1 TABLET BY MOUTH TWO TIMES A DAY FOR 7 DAYS sulfamethoxazole 800 mg-trimethoprim 160 mg tablet TAKE 1 TABLET BY MOUTH TWO TIMES A DAY FOR 7 DAYS completed sulfamethoxazole 800 MG / trimethoprim 160 MG Oral Tablet ALEX ([facility]) tizanidine 2 MG Oral Tablet tizanidine 2 mg tablet TAKE ONE TABLET BY MOUTH EVERY 8 HOURS NEEDED FOR SPASMS tizanidine 2 mg tablet TAKE ONE TABLET B Y MOUTH EVERY 8 HOURS NEEDED FOR SPASMS completed tizanidine 2 MG Oral Tablet ALEX ([facility]) Amoxicillin 875 MG / Clavulanate 125 MG Oral Tablet amoxicillin 875 mg-potassium clavulanate 125 mg tablet TAKE ONE TABLET BY MOUTH TWICE A DAY FOR 14 DAYS amoxicillin 875 mg-potassium clavulanate 125 mg tablet TAKE ONE TABLET BY MOUTH TWICE A DAY FOR 14 DAYS completed amoxicillin 875 MG / clavulanate 125 MG Oral Tablet ALEX ([facility]) Escitalopram 10 MG Oral Tablet escitalop ac 10 mg tablet TAKE ONE TABLET BY MOUTH EVERY DAY escitalopram 10 mg tablet TAKE ONE TABLET BY MOUTH EVERY DAY completed escitalopram 1 0 MG Oral Tablet ALEX ([facility]) Fluzone Quad [id number] 60 mcg (15 mcg x 4)/0.5 mL intramuscular susp. INJECT DIRECTED [id number] completed influe nza A virus A/[facility] Mykel (H3N2) antigen 0.03 MG/ML / influenza A virus A/ (H1N1) antigen 0.03 MG/ML / influenza B virus B/[facility] antigen 0.03 MG/ML / influenza B virus B/Val antigen 0.03 MG/ML Injectable Suspension ALEX ([facility]) Furosemide 20 MG Oral Tablet furosemide 20 mg tablet TAKE ONE TABLET BY MOUTH EVERY DAY furosemide 20 mg tablet TAKE ONE TABLET BY MOUTH EVERY DAY completed furosemide 20 MG Oral Tablet CASSEL ([facility]) Sulfamethoxazole 800 MG / Trimethoprim 1 60 MG Oral Tablet sulfamethoxazole 800 mg-trimethoprim 160 mg tablet TAKE 1 TABLET BY MOUTH TWO TIMES A DAY FOR 7 DAYS sulfamethoxazole 800 mg-trimethoprim 160 mg tablet TAKE 1 TABLET BY MOUTH TWO TIMES A DAY FOR 7 DAYS completed sulfamethoxazole 800 MG / trimethoprim 160 MG Oral Tablet CASSEL ([facility]) Furosemide 20 MG Oral Tablet furosemide 20 mg tablet TAKE ONE TABLET BY MOUTH EVERY DAY furosemide 20 mg tablet TAKE ONE TABLET BY MOUTH EVERY DAY completed furosemide 20 MG Oral Tablet CASSEL ([facility]) Amoxicillin 875 MG / Clavulanate 125 MG Oral Tablet amoxicillin 875 mg-potassium clavulanate 125 mg tablet TAKE ONE TABLET BY MOUTH TWICE A DAY FOR 14 DAYS amoxicillin 875 mg-potassium clavulanate 125 mg tablet TAKE ONE TABLET BY MOUTH TWICE A DAY FOR 14 DAYS completed amoxicillin 875 MG / clavulanate 125 MG Oral Tablet CASSEL ([facility]) methylprednisolone 4 mg tablets in a dos e pack TAKE DOSE BRIJESH DIRECTED ON SHEET [id number] completed methylpre dnisolone 4 mg tablets in a dose pack CASSEL ([facility]) Amoxicillin 875 MG / Clavulanate 125 MG Oral Tablet amoxicillin 875 mg-potassium clavulanate 125 mg tablet TAKE ONE TABLET BY MOUTH TWICE A DAY FOR 14 DAYS amoxicillin 875 mg-potassium clavulanate 125 mg tablet TAKE ONE TABLET BY MOUTH TWICE A DAY FOR 14 DAYS completed amoxicillin 875 MG / clavulanate 125 MG Oral Tablet CASSEL ([facility]) meloxicam 7.5 MG Oral Tablet meloxicam 7 .5 mg tablet TAKE ONE TABLET BY MOUTH EVERY DAY meloxicam 7.5 mg tablet TAKE ONE TABLET BY MOUTH EVERY DAY completed meloxicam 7.5 MG Oral Tablet CASSEL ([facility]) gabapentin 300 MG Oral Capsule gabapenti n [...] completed gabapentin 300 MG Oral Capsule ALEX ([facility]) gabapentin 300 MG Oral Capsule gabapenti n [...] completed gabapentin 300 MG Oral Capsule ALEX ([facility]) Tobramycin 3 MG/ML Ophthalmic Solution t obramycin 0.3 % eye drops INSTILL 2 DROPS INTO AFFECTED EYE S THREE TIMES A DAY FOR 7 DAYS tobramycin 0.3 % eye drops INSTILL 2 DROPS INTO AFFECTED EYE S THREE TIMES A DAY FOR 7 DAYS completed tobramycin 3 MG/ML Ophtha lmic Solution CASSEL ([facility]) Tobramycin 3 MG/ML Ophthalmic Solution t obramycin 0.3 % eye drops INSTILL 2 DROPS INTO AFFECTED EYE S THREE TIMES A DAY FOR 7 DAYS tobramycin 0.3 % eye drops INSTILL 2 DROPS INTO AFFECTED EYE S THREE TIMES A DAY FOR 7 DAYS completed tobramycin 3 MG/ML Ophtha lmic Solution CASSEL ([facility]) terbinafine 250 MG Oral Tablet terbinafi ne HCl 250 mg tablet TAKE 1 TABLET BY MOUTH ONCE DAILY terbinafine HCl 250 mg tablet TAKE 1 TAB LET BY MOUTH ONCE DAILY completed terbinafine 250 MG Oral Tablet CASSEL ([facility]) methylprednisolone 4 mg tablets in a dos e pack TAKE DOSE BRIJESH DIRECTED ON SHEET [id number] completed methylpre dnisolone 4 mg tablets in a dose pack ALEX ([facility]) methylprednisolone 4 mg tablets in a dos e pack TAKE DOSE BRIJESH DIRECTED ON SHEET [id number] completed methylpre dnisolone 4 mg tablets in a dose pack ALEX ([facility]) methylprednisolone 4 mg tablets in a dos e pack TAKE DOSE BRIJESH DIRECTED ON SHEET [id number] completed methylpre dnisolone 4 mg tablets in a dose pack CASSEL ([facility]) Fluzone Quad 60 mcg (15 mcg x 4)/0.5 mL intramuscular susp. INJECT DIRECTED [id number] completed influe nza A virus A/[facility] (H3N2) antigen 0.03 MG/ML / influenza A virus A/ (H1N1) antigen 0.03 MG/ML / influenza B virus B/[facility] antigen 0.03 MG/ML / influenza B virus B/[facility] antigen 0.03 MG/ML Injectable Suspension ALEX ([facility]) Tobramycin 3 MG/ML Ophthalmic Solution t obramycin 0.3 % eye drops INSTILL 2 DROPS INTO AFFECTED EYE S THREE TIMES A DAY FOR 7 DAYS tobramycin 0.3 % eye drops INSTILL 2 DROPS INTO AFFECTED EYE S THREE TIMES A DAY FOR 7 DAYS completed tobramycin 3 MG/ML Ophtha lmic Solution ALEX ([facility]) meloxicam 7.5 MG Oral Tablet meloxicam 7 .5 mg tablet TAKE ONE TABLET BY MOUTH EVERY DAY meloxicam 7.5 mg tablet TAKE ONE TABLET BY MOUTH EVERY DAY completed meloxicam 7.5 MG Oral Tablet CASSEL ([facility]) Naproxen 500 MG Oral Tablet naproxen 500 mg tablet TAKE ONE TABLET BY MOUTH EVERY 12 HOURS FOR 7 DAYS naproxen 500 mg tablet TAKE ONE TABLET B Y MOUTH EVERY 12 HOURS FOR 7 DAYS completed na proxen 500 MG Oral Tablet ALEX ([facility]) Ibuprofen 600 MG Oral Tablet ibuprofen 6 00 mg tablet TAKE ONE TABLET BY MOUTH TWICE A DAY ibuprofen 600 mg tablet TAKE ONE TABLET BY MOUTH TWICE A DAY completed ibuprofen 600 MG Ora l Tablet CASSEL ([facility]) Fluzone Quad 60 mcg (15 mcg x 4)/0.5 mL intramuscular susp. INJECT DIRECTED [id number] completed Fluzon e Quad 60 mcg (15 mcg x 4)/0.5 mL intramuscular susp. ALEX ([facility]) tizanidine 2 MG Oral Tablet tizanidine 2 mg tablet TAKE ONE TABLET BY MOUTH EVERY 8 HOURS NEEDED FOR SPASMS tizanidine 2 mg tablet TAKE ONE TABLET B Y MOUTH EVERY 8 HOURS NEEDED FOR SPASMS completed tizanidine 2 MG Oral Tablet ALEX ([facility]) doxycycline hyclate 100 MG Oral Tablet d oxycycline hyclate 100 mg tablet TAKE ONE TABLET BY MOUTH TWICE A DAY doxycycline hyclate 100 mg tablet TAKE O NE TABLET BY MOUTH TWICE A DAY completed doxycycline hyclate 100 MG Oral Tablet ALEX ([facility]) Escitalopram 20 MG Oral Tablet escitalopram 20 mg tabl et escitalopram 20 mg tablet completed escitalopram 20 MG Oral Tablet ALEX ([facility]) doxycycline hyclate 100 MG Oral Tablet d oxycycline hyclate 100 mg tablet TAKE ONE TABLET BY MOUTH TWICE A DAY doxycycline hyclate 100 mg tablet TAKE O NE TABLET BY MOUTH TWICE A DAY completed doxycycline hyclate 100 MG Oral Tablet ALEX ([facility]) Naproxen 500 MG Oral Tablet naproxen 500 mg tablet TAKE ONE TABLET BY MOUTH EVERY 12 HOURS FOR 7 DAYS naproxen 500 mg tablet TAKE ONE TABLET B Y MOUTH EVERY 12 HOURS FOR 7 DAYS completed na proxen 500 MG Oral Tablet CASSEL ([facility]) doxycycline hyclate 100 MG Oral Tablet d oxycycline hyclate 100 mg tablet TAKE ONE TABLET BY MOUTH TWICE A DAY doxycycline hyclate 100 mg tablet TAKE O NE TABLET BY MOUTH TWICE A DAY completed doxycycline hyclate 100 MG Oral Tablet ALEX ([facility]) Amoxicillin 875 MG / Clavulanate 125 MG Oral Tablet amoxicillin 875 mg-potassium clavulanate 125 mg tablet TAKE ONE TABLET BY MOUTH TWICE A DAY FOR 14 DAYS amoxicillin 875 mg-potassium clavulanate 125 mg tablet TAKE ONE TABLET BY MOUTH TWICE A DAY FOR 14 DAYS completed amoxicillin 875 MG / clavulanate 125 MG Oral Tablet ALEX ([facility]) Omeprazole 20 MG Delayed Release Oral Ca psule omeprazole 20 mg capsule,delayed release TAKE ONE CAPSULE BY MOUTH EVERY DAY omeprazole 20 mg capsule,delayed release TAKE ONE CAPSULE BY MOUTH EVERY DAY completed omeprazole 20 MG Delayed Release Oral Capsule ALEX ([facility]) meloxicam 7.5 MG Oral Tablet meloxicam 7 .5 mg tablet TAKE ONE TABLET BY MOUTH EVERY DAY meloxicam 7.5 mg tablet TAKE ONE TABLET BY MOUTH EVERY DAY completed meloxicam 7.5 MG Oral Tablet ALEX ([facility]) Ibuprofen 600 MG Oral Tablet ibuprofen 6 00 mg tablet TAKE ONE TABLET BY MOUTH TWICE A DAY ibuprofen 600 mg tablet TAKE ONE TABLET BY MOUTH TWICE A DAY completed ibuprofen 600 MG Ora l Tablet ALEX ([facility]) Omeprazole 20 MG Delayed Release Oral Ca psule omeprazole 20 mg capsule,delayed release TAKE ONE CAPSULE BY MOUTH EVERY DAY omeprazole 20 mg capsule,delayed release TAKE ONE CAPSULE BY MOUTH EVERY DAY completed omeprazole 20 MG Delayed Release Oral Capsule CASSEL ([facility]) Fluzone Quad 60 mcg (15 mcg x 4)/0.5 mL intramuscular susp. INJECT DIRECTED [id number] completed Fluzon e Quad 60 mcg (15 mcg x 4)/0.5 mL intramuscular susp. ALEX ([facility]) gabapentin 300 MG Oral Capsule gabapenti n [...] THREE completed gabapentin 300 MG Oral Capsule CASSEL ([facility]) Tobramycin 3 MG/ML Ophthalmic Solution t obramycin 0.3 % eye drops INSTILL 2 DROPS INTO AFFECTED EYE S THREE TIMES A DAY FOR 7 DAYS tobramycin 0.3 % eye drops INSTILL 2 DROPS INTO AFFECTED EYE S THREE TIMES A DAY FOR 7 DAYS completed tobramycin 3 MG/ML Ophtha lmic Solution [facility]) methylprednisolone 4 mg tablets in a dos e pack TAKE DOSE BRIJESH DIRECTED ON SHEET [id number] completed methylpre dnisolone 4 mg tablets in a dose pack CASSEL ([facility]) Escitalopram 20 MG Oral Tablet escitalopram 20 mg tabl et escitalopram 20 mg tablet completed escitalopram 20 MG Oral Tablet CASSEL ([facility]) Ibuprofen 600 MG Oral Tablet ibuprofen 6 00 mg tablet TAKE ONE TABLET BY MOUTH TWICE A DAY ibuprofen 600 mg tablet TAKE ONE TABLET BY MOUTH TWICE A DAY completed ibuprofen 600 MG Ora l Tablet [facility]) methylprednisolone 4 mg tablets in a dos e pack TAKE DOSE BRIJESH DIRECTED ON SHEET [id number] completed methylpre dnisolone 4 mg tablets in a dose pack CASSEL ([facility]) Amoxicillin 875 MG / Clavulanate 125 MG Oral Tablet amoxicillin 875 mg-potassium clavulanate 125 mg tablet TAKE ONE TABLET BY MOUTH TWICE A DAY FOR 14 DAYS amoxicillin 875 mg-potassium clavulanate 125 mg tablet TAKE ONE TABLET BY MOUTH TWICE A DAY FOR 14 DAYS completed amoxicillin 875 MG / clavulanate 125 MG Oral Tablet ALEX ([facility]) Acetaminophen 325 MG Oral Tablet acetami nophen 325 mg tablet TAKE ONE TABLET BY MOUTH EVERY 6 HOURS NEEDED FOR PAIN acetaminophen 325 mg tablet TAKE ONE TABLET BY MOUTH EVERY 6 HOURS NEEDED FOR PAIN completed acetaminophen 325 MG Oral Tablet ALEX ([facility]) terbinafine 250 MG Oral Tablet terbinafi ne HCl 250 mg tablet TAKE 1 TABLET BY MOUTH ONCE DAILY terbinafine HCl 250 mg tablet TAKE 1 TAB LET BY MOUTH ONCE DAILY completed terbinafine 250 MG Oral Tablet CASSEL ([facility]) Prednisone 20 MG Oral Tablet prednisone 20 [...] completed prednisone 20 MG Oral Tablet ALEX ([facility]) Amoxicillin 875 MG / Clavulanate 125 MG Oral Tablet amoxicillin 875 mg-potassium clavulanate 125 mg tablet TAKE ONE TABLET BY MOUTH TWICE A DAY FOR 14 DAYS amoxicillin 875 mg-potassium clavulanate 125 mg tablet TAKE ONE TABLET BY MOUTH TWICE A DAY FOR 14 DAYS completed amoxicillin 875 MG / clavulanate 125 MG Oral Tablet ALEX ([facility]) tizanidine 2 MG Oral Tablet tizanidine 2 mg tablet TAKE ONE TABLET BY MOUTH EVERY 8 HOURS NEEDED FOR SPASMS tizanidine 2 mg tablet TAKE ONE TABLET B Y MOUTH EVERY 8 HOURS NEEDED FOR SPASMS completed tizanidine 2 MG Oral Tablet ALEX ([facility]) Naproxen 500 MG Oral Tablet naproxen 500 mg tablet TAKE ONE TABLET BY MOUTH EVERY 12 HOURS FOR 7 DAYS naproxen 500 mg tablet TAKE ONE TABLET B Y MOUTH EVERY 12 HOURS FOR 7 DAYS completed na proxen 500 MG Oral Tablet ALEX ([facility]) Fluzone Quad [id number] 60 mcg (15 mcg x 4)/0.5 mL intramuscular susp. INJECT DIRECTED [id number] completed influe nza A virus A/[facility] (H3N2) antigen 0.03 MG/ML / influenza A virus A/ (H1N1) antigen 0.03 MG/ML / influenza B virus B/[facility] antigen 0.03 MG/ML / influenza B virus B/Val antigen 0.03 MG/ML Injectable Suspension ALEX ([facility]) Acetaminophen 325 MG Oral Tablet acetami nophen 325 mg tablet TAKE ONE TABLET BY MOUTH EVERY 6 HOURS NEEDED FOR PAIN acetaminophen 325 mg tablet TAKE ONE TABLET BY MOUTH EVERY 6 HOURS NEEDED FOR PAIN completed acetaminophen 325 MG Oral Tablet ALEX ([facility]) Acetaminophen 325 MG Oral Tablet acetami nophen 325 mg tablet TAKE ONE TABLET BY MOUTH EVERY 6 HOURS NEEDED FOR PAIN acetaminophen 325 mg tablet TAKE ONE TABLET BY MOUTH EVERY 6 HOURS NEEDED FOR PAIN completed acetaminophen 325 MG Oral Tablet ALEX ([facility]) tizanidine 2 MG Oral Tablet tizanidine 2 mg tablet TAKE ONE TABLET BY MOUTH EVERY 8 HOURS NEEDED FOR SPASMS tizanidine 2 mg tablet TAKE ONE TABLET B Y MOUTH EVERY 8 HOURS NEEDED FOR SPASMS completed tizanidine 2 MG Oral Tablet ALEX ([facility]) doxycycline hyclate 100 MG Oral Tablet d oxycycline hyclate 100 mg tablet TAKE ONE TABLET BY MOUTH TWICE A DAY doxycycline hyclate 100 mg tablet TAKE O NE TABLET BY MOUTH TWICE A DAY completed doxycycline hyclate 100 MG Oral Tablet ALEX ([facility]) Tobramycin 3 MG/ML Ophthalmic Solution t obramycin 0.3 % eye drops INSTILL 2 DROPS INTO AFFECTED EYE S THREE TIMES A DAY FOR 7 DAYS tobramycin 0.3 % eye drops INSTILL 2 DROPS INTO AFFECTED EYE S THREE TIMES A DAY FOR 7 DAYS completed tobramycin 3 MG/ML Ophtha lmic Solution ALEX ([facility]) Prednisone 20 MG Oral Tablet prednisone 20 [...] completed prednisone 20 MG Oral Tablet ALEX ([facility]) methylprednisolone 4 mg tablets in a dos e pack TAKE DOSE BRIJESH DIRECTED ON SHEET [id number] completed methylpre dnisolone 4 mg tablets in a dose pack ALEX ([facility]) gabapentin 300 MG Oral Capsule gabapenti n [...] completed gabapentin 300 MG Oral Capsule ALEX ([facility]) Acetaminophen 325 MG Oral Tablet acetami nophen 325 mg tablet TAKE ONE TABLET BY MOUTH EVERY 6 HOURS NEEDED FOR PAIN acetaminophen 325 mg tablet TAKE ONE TABLET BY MOUTH EVERY 6 HOURS NEEDED FOR PAIN completed acetaminophen 325 MG Oral Tablet CASSEL ([facility]) Escitalopram 10 MG Oral Tablet escitalop ac 10 mg tablet TAKE ONE TABLET BY MOUTH EVERY DAY escitalopram 10 mg tablet TAKE ONE TABLET BY MOUTH EVERY DAY completed escitalopram 1 0 MG Oral Tablet CASSEL ([facility]) sildenafil 100 MG Oral Tablet sildenafil 100 mg tablet Take 1 tablet every day by oral route as needed. sildenafil 100 mg tablet Take 1 tablet e very day by oral route as needed. 1 completed sildenafil 100 MG Oral Tablet CASSEL ([facility]) meloxicam 7.5 MG Oral Tablet meloxicam 7 .5 mg tablet TAKE ONE TABLET BY MOUTH EVERY DAY meloxicam 7.5 mg tablet TAKE ONE TABLET BY MOUTH EVERY DAY completed meloxicam 7.5 MG Oral Tablet CASSEL ([facility]) Furosemide 20 MG Oral Tablet furosemide 20 mg tablet TAKE ONE TABLET BY MOUTH EVERY DAY furosemide 20 mg tablet TAKE ONE TABLET BY MOUTH EVERY DAY completed furosemide 20 MG Oral Tablet CASSEL ([facility]) tizanidine 2 MG Oral Tablet tizanidine 2 mg tablet TAKE ONE TABLET BY MOUTH EVERY 8 HOURS NEEDED FOR SPASMS tizanidine 2 mg tablet TAKE ONE TABLET B Y MOUTH EVERY 8 HOURS NEEDED FOR SPASMS completed tizanidine 2 MG Oral Tablet ALEX ([facility]) Fluzone Quad 1281-8519 60 mcg (15 mcg x 4)/0.5 mL intramuscular susp. INJECT DIRECTED [id number] completed Fluzon e Quad [id number] 60 mcg (15 mcg x 4)/0.5 mL intramuscular susp. ALEX ([facility]) terbinafine 250 MG Oral Tablet terbinafi ne HCl 250 mg tablet TAKE 1 TABLET BY MOUTH ONCE DAILY terbinafine HCl 250 mg tablet TAKE 1 TAB LET BY MOUTH ONCE DAILY completed terbinafine 250 MG Oral Tablet ALEX ([facility]) Furosemide 20 MG Oral Tablet furosemide 20 mg tablet TAKE ONE TABLET BY MOUTH EVERY DAY furosemide 20 mg tablet TAKE ONE TABLET BY MOUTH EVERY DAY completed furosemide 20 MG Oral Tablet ALEX ([facility]) tizanidine 2 MG Oral Tablet tizanidine 2 mg tablet TAKE ONE TABLET BY MOUTH EVERY 8 HOURS NEEDED FOR SPASMS tizanidine 2 mg tablet TAKE ONE TABLET B Y MOUTH EVERY 8 HOURS NEEDED FOR SPASMS completed tizanidine 2 MG Oral Tablet CASSEL ([facility]) methylprednisolone 4 mg tablets in a dos e pack TAKE DOSE BRIJESH DIRECTED ON SHEET [id number] completed methylpre dnisolone 4 mg tablets in a dose pack CASSEL ([facility]) meloxicam 7.5 MG Oral Tablet meloxicam 7 .5 mg tablet TAKE ONE TABLET BY MOUTH EVERY DAY meloxicam 7.5 mg tablet TAKE ONE TABLET BY MOUTH EVERY DAY completed meloxicam 7.5 MG Oral Tablet CASSEL ([facility]) Amoxicillin 875 MG / Clavulanate 125 MG Oral Tablet amoxicillin 875 mg-potassium clavulanate 125 mg tablet TAKE ONE TABLET BY MOUTH TWICE A DAY FOR 14 DAYS amoxicillin 875 mg-potassium clavulanate 125 mg tablet TAKE ONE TABLET BY MOUTH TWICE A DAY FOR 14 DAYS completed amoxicillin 875 MG / clavulanate 125 MG Oral Tablet ALEX ([facility]) gabapentin 300 MG Oral Capsule gabapenti n [...] completed gabapentin 300 MG Oral Capsule ALEX ([facility]) Naproxen 500 MG Oral Tablet naproxen 500 mg tablet TAKE ONE TABLET BY MOUTH EVERY 12 HOURS FOR 7 DAYS naproxen 500 mg tablet TAKE ONE TABLET B Y MOUTH EVERY 12 HOURS FOR 7 DAYS completed na proxen 500 MG Oral Tablet ALEX ([facility]) Naproxen 500 MG Oral Tablet naproxen 500 mg tablet TAKE ONE TABLET BY MOUTH EVERY 12 HOURS FOR 7 DAYS naproxen 500 mg tablet TAKE ONE TABLET B Y MOUTH EVERY 12 HOURS FOR 7 DAYS completed na proxen 500 MG Oral Tablet ALEX ([facility]) Sulfamethoxazole 800 MG / Trimethoprim 1 60 MG Oral Tablet sulfamethoxazole 800 mg-trimethoprim 160 mg tablet TAKE 1 TABLET BY MOUTH TWO TIMES A DAY FOR 7 DAYS sulfamethoxazole 800 mg-trimethoprim 160 mg tablet TAKE 1 TABLET BY MOUTH TWO TIMES A DAY FOR 7 DAYS completed sulfamethoxazole 800 MG / trimethoprim 160 MG Oral Tablet ALEX ([facility]) Fluzone Quad 9340-1500 60 mcg (15 mcg x 4)/0.5 mL intramuscular susp. INJECT DIRECTED [id number] completed influe nza A virus A/[facility] (H3N2) antigen 0.03 MG/ML / influenza A virus A/ (H1N1) antigen 0.03 MG/ML / influenza B virus B/[facility] antigen 0.03 MG/ML / influenza B virus B/[facility] antigen 0.03 MG/ML Injectable Suspension ALEX ([facility]) Amoxicillin 875 MG / Clavulanate 125 MG Oral Tablet amoxicillin 875 mg-potassium clavulanate 125 mg tablet TAKE ONE TABLET BY MOUTH TWICE A DAY FOR 14 DAYS amoxicillin 875 mg-potassium clavulanate 125 mg tablet TAKE ONE TABLET BY MOUTH TWICE A DAY FOR 14 DAYS completed amoxicillin 875 MG / clavulanate 125 MG Oral Tablet ALEX ([facility]) Sulfamethoxazole 800 MG / Trimethoprim 1 60 MG Oral Tablet sulfamethoxazole 800 mg-trimethoprim 160 mg tablet TAKE 1 TABLET BY MOUTH TWO TIMES A DAY FOR 7 DAYS sulfamethoxazole 800 mg-trimethoprim 160 mg tablet TAKE 1 TABLET BY MOUTH TWO TIMES A DAY FOR 7 DAYS completed sulfamethoxazole 800 MG / trimethoprim 160 MG Oral Tablet ALEX ([facility]) Escitalopram 10 MG Oral Tablet escitalop ac 10 mg tablet TAKE ONE TABLET BY MOUTH EVERY DAY escitalopram 10 mg tablet TAKE ONE TABLET BY MOUTH EVERY DAY completed escitalopram 1 0 MG Oral Tablet ALEX ([facility]) Tobramycin 3 MG/ML Ophthalmic Solution t obramycin 0.3 % eye drops INSTILL 2 DROPS INTO AFFECTED EYE S THREE TIMES A DAY FOR 7 DAYS tobramycin 0.3 % eye drops INSTILL 2 DROPS INTO AFFECTED EYE S THREE TIMES A DAY FOR 7 DAYS completed tobramycin 3 MG/ML Ophtha lmic Solution ALEX ([facility]) Amoxicillin 875 MG / Clavulanate 125 MG Oral Tablet amoxicillin 875 mg-potassium clavulanate 125 mg tablet TAKE ONE TABLET BY MOUTH TWICE A DAY FOR 14 DAYS amoxicillin 875 mg-potassium clavulanate 125 mg tablet TAKE ONE TABLET BY MOUTH TWICE A DAY FOR 14 DAYS completed amoxicillin 875 MG / clavulanate 125 MG Oral Tablet CASSEL ([facility]) Fluzone Quad 60 mcg (15 mcg x 4)/0.5 mL intramuscular susp. INJECT DIRECTED [id number] completed influe nza A virus A/ (H3N2) antigen 0.03 MG/ML / influenza A virus A/ (H1N1) antigen 0.03 MG/ML / influenza B virus B/[facility] antigen 0.03 MG/ML / influenza B virus B/Val antigen 0.03 MG/ML Injectable Suspension CASSEL ([facility]) gabapentin 300 MG Oral Capsule gabapenti n [...] completed gabapentin 300 MG Oral Capsule ALEX ([facility]) Ibuprofen 600 MG Oral Tablet ibuprofen 6 00 mg tablet TAKE ONE TABLET BY MOUTH TWICE A DAY ibuprofen 600 mg tablet TAKE ONE TABLET BY MOUTH TWICE A DAY completed ibuprofen 600 MG Ora l Tablet CASSEL ([facility]) doxycycline hyclate 100 MG Oral Tablet d oxycycline hyclate 100 mg tablet TAKE ONE TABLET BY MOUTH TWICE A DAY doxycycline hyclate 100 mg tablet TAKE O NE TABLET BY MOUTH TWICE A DAY completed doxycycline hyclate 100 MG Oral Tablet ALEX ([facility]) tizanidine 2 MG Oral Tablet tizanidine 2 mg tablet TAKE ONE TABLET BY MOUTH EVERY 8 HOURS NEEDED FOR SPASMS tizanidine 2 mg tablet TAKE ONE TABLET B Y MOUTH EVERY 8 HOURS NEEDED FOR SPASMS completed tizanidine 2 MG Oral Tablet ALEX ([facility]) Tobramycin 3 MG/ML Ophthalmic Solution t obramycin 0.3 % eye drops INSTILL 2 DROPS INTO AFFECTED EYE S THREE TIMES A DAY FOR 7 DAYS tobramycin 0.3 % eye drops INSTILL 2 DROPS INTO AFFECTED EYE S THREE TIMES A DAY FOR 7 DAYS completed tobramycin 3 MG/ML Ophtha lmic Solution ALEX ([facility]) Ibuprofen 600 MG Oral Tablet ibuprofen 6 00 mg tablet TAKE ONE TABLET BY MOUTH TWICE A DAY ibuprofen 600 mg tablet TAKE ONE TABLET BY MOUTH TWICE A DAY completed ibuprofen 600 MG Ora l Tablet CASSEL ([facility]) gabapentin 300 MG Oral Capsule gabapenti n [...] THREE completed gabapentin 300 MG Oral Capsule CASSEL ([facility]) Escitalopram 10 MG Oral Tablet escitalop ac 10 mg tablet TAKE ONE TABLET BY MOUTH EVERY DAY escitalopram 10 mg tablet TAKE ONE TABLET BY MOUTH EVERY DAY completed escitalopram 1 0 MG Oral Tablet CASSEL ([facility]) Naproxen 500 MG Oral Tablet naproxen 500 mg tablet TAKE ONE TABLET BY MOUTH EVERY 12 HOURS FOR 7 DAYS naproxen 500 mg tablet TAKE ONE TABLET B Y MOUTH EVERY 12 HOURS FOR 7 DAYS completed na proxen 500 MG Oral Tablet ALEX ([facility]) meloxicam 7.5 MG Oral Tablet meloxicam 7 .5 mg tablet TAKE ONE TABLET BY MOUTH EVERY DAY meloxicam 7.5 mg tablet TAKE ONE TABLET BY MOUTH EVERY DAY completed meloxicam 7.5 MG Oral Tablet CASSEL ([facility]) Escitalopram 20 MG Oral Tablet escitalopram 20 mg tabl et escitalopram 20 mg tablet completed escitalopram 20 MG Oral Tablet CASSEL ([facility]) meloxicam 7.5 MG Oral Tablet meloxicam 7 .5 mg tablet TAKE ONE TABLET BY MOUTH EVERY DAY meloxicam 7.5 mg tablet TAKE ONE TABLET BY MOUTH EVERY DAY completed meloxicam 7.5 MG Oral Tablet CASSEL ([facility]) Ibuprofen 600 MG Oral Tablet ibuprofen 6 00 mg tablet TAKE ONE TABLET BY MOUTH TWICE A DAY ibuprofen 600 mg tablet TAKE ONE TABLET BY MOUTH TWICE A DAY completed ibuprofen 600 MG Ora l Tablet CASSEL ([facility]) methylprednisolone 4 mg tablets in a dos e pack TAKE DOSE BRIJESH DIRECTED ON SHEET [id number] completed methylpre dnisolone 4 mg tablets in a dose pack CASSEL ([facility]) Furosemide 20 MG Oral Tablet furosemide 20 mg tablet TAKE ONE TABLET BY MOUTH EVERY DAY furosemide 20 mg tablet TAKE ONE TABLET BY MOUTH EVERY DAY completed furosemide 20 MG Oral Tablet CASSEL ([facility]) Escitalopram 10 MG Oral Tablet escitalop ac 10 mg tablet TAKE ONE TABLET BY MOUTH EVERY DAY escitalopram 10 mg tablet TAKE ONE TABLET BY MOUTH EVERY DAY completed escitalopram 1 0 MG Oral Tablet CASSEL ([facility]) Escitalopram 10 MG Oral Tablet escitalop ac 10 mg tablet TAKE ONE TABLET BY MOUTH EVERY DAY escitalopram 10 mg tablet TAKE ONE TABLET BY MOUTH EVERY DAY completed escitalopram 1 0 MG Oral Tablet CASSEL ([facility]) terbinafine 250 MG Oral Tablet terbinafi ne HCl 250 mg tablet TAKE 1 TABLET BY MOUTH ONCE DAILY terbinafine HCl 250 mg tablet TAKE 1 TAB LET BY MOUTH ONCE DAILY completed terbinafine 250 MG Oral Tablet CASSEL ([facility]) Omeprazole 20 MG Delayed Release Oral Ca psule omeprazole 20 mg capsule,delayed release TAKE ONE CAPSULE BY MOUTH EVERY DAY omeprazole 20 mg capsule,delayed release TAKE ONE CAPSULE BY MOUTH EVERY DAY completed omeprazole 20 MG Delayed Release Oral Capsule CASSEL ([facility]) Furosemide 20 MG Oral Tablet furosemide 20 mg tablet TAKE ONE TABLET BY MOUTH EVERY DAY furosemide 20 mg tablet TAKE ONE TABLET BY MOUTH EVERY DAY completed furosemide 20 MG Oral Tablet CASSEL ([facility]) Tobramycin 3 MG/ML Ophthalmic Solution t obramycin 0.3 % eye drops INSTILL 2 DROPS INTO AFFECTED EYE S THREE TIMES A DAY FOR 7 DAYS tobramycin 0.3 % eye drops INSTILL 2 DROPS INTO AFFECTED EYE S THREE TIMES A DAY FOR 7 DAYS completed tobramycin 3 MG/ML Ophtha lmic Solution ALEX ([facility]) Sulfamethoxazole 800 MG / Trimethoprim 1 60 MG Oral Tablet sulfamethoxazole 800 mg-trimethoprim 160 mg tablet TAKE 1 TABLET BY MOUTH TWO TIMES A DAY FOR 7 DAYS sulfamethoxazole 800 mg-trimethoprim 160 mg tablet TAKE 1 TABLET BY MOUTH TWO TIMES A DAY FOR 7 DAYS completed sulfamethoxazole 800 MG / trimethoprim 160 MG Oral Tablet CASSEL ([facility]) Escitalopram 20 MG Oral Tablet escitalopram 20 mg tabl et escitalopram 20 mg tablet completed escitalopram 20 MG Oral Tablet CASSEL ([facility]) Naproxen 500 MG Oral Tablet naproxen 500 mg tablet TAKE ONE TABLET BY MOUTH EVERY 12 HOURS FOR 7 DAYS naproxen 500 mg tablet TAKE ONE TABLET B Y MOUTH EVERY 12 HOURS FOR 7 DAYS completed na proxen 500 MG Oral Tablet CASSEL ([facility]) Fluzone Quad 60 mcg (15 mcg x 4)/0.5 mL intramuscular susp. INJECT DIRECTED [id number] completed Fluzon e Quad 60 mcg (15 mcg x 4)/0.5 mL intramuscular susp. ALEX ([facility]) Prednisone 20 MG Oral Tablet prednisone 20 [...] D completed prednisone 20 MG Oral Tablet CASSEL ([facility]) methylprednisolone 4 mg tablets in a dos e pack TAKE DOSE BRIJESH DIRECTED ON SHEET [id number] completed methylpre dnisolone 4 mg tablets in a dose pack CASSEL ([facility]) Acetaminophen 325 MG Oral Tablet acetami nophen 325 mg tablet TAKE ONE TABLET BY MOUTH EVERY 6 HOURS NEEDED FOR PAIN acetaminophen 325 mg tablet TAKE ONE TABLET BY MOUTH EVERY 6 HOURS NEEDED FOR PAIN completed acetaminophen 325 MG Oral Tablet CASSEL ([facility]) tizanidine 2 MG Oral Tablet tizanidine 2 mg tablet TAKE ONE TABLET BY MOUTH EVERY 8 HOURS NEEDED FOR SPASMS tizanidine 2 mg tablet TAKE ONE TABLET B Y MOUTH EVERY 8 HOURS NEEDED FOR SPASMS completed tizanidine 2 MG Oral Tablet CASSEL ([facility]) Tobramycin 3 MG/ML Ophthalmic Solution t obramycin 0.3 % eye drops INSTILL 2 DROPS INTO AFFECTED EYE S THREE TIMES A DAY FOR 7 DAYS tobramycin 0.3 % eye drops INSTILL 2 DROPS INTO AFFECTED EYE S THREE TIMES A DAY FOR 7 DAYS completed tobramycin 3 MG/ML Ophtha lmic Solution CASSEL ([facility]) Escitalopram 10 MG Oral Tablet escitalop ac 10 mg tablet TAKE ONE TABLET BY MOUTH EVERY DAY escitalopram 10 mg tablet TAKE ONE TABLET BY MOUTH EVERY DAY completed escitalopram 1 0 MG Oral Tablet CASSEL ([facility]) Ibuprofen 600 MG Oral Tablet ibuprofen 6 00 mg tablet TAKE ONE TABLET BY MOUTH TWICE A DAY ibuprofen 600 mg tablet TAKE ONE TABLET BY MOUTH TWICE A DAY completed ibuprofen 600 MG Ora l Tablet CASSEL ([facility]) Tobramycin 3 MG/ML Ophthalmic Solution t obramycin 0.3 % eye drops INSTILL 2 DROPS INTO AFFECTED EYE S THREE TIMES A DAY FOR 7 DAYS tobramycin 0.3 % eye drops INSTILL 2 DROPS INTO AFFECTED EYE S THREE TIMES A DAY FOR 7 DAYS completed tobramycin 3 MG/ML Ophtha lmic Solution CASSEL ([facility]) methylprednisolone 4 mg tablets in a dos e pack TAKE DOSE BRIJESH DIRECTED ON SHEET [id number] completed methylpre dnisolone 4 mg tablets in a dose pack CASSEL ([facility]) Escitalopram 10 MG Oral Tablet escitalop ac 10 mg tablet TAKE ONE TABLET BY MOUTH EVERY DAY escitalopram 10 mg tablet TAKE ONE TABLET BY MOUTH EVERY DAY completed escitalopram 1 0 MG Oral Tablet CASSEL ([facility]) Ibuprofen 600 MG Oral Tablet ibuprofen 6 00 mg tablet TAKE ONE TABLET BY MOUTH TWICE A DAY ibuprofen 600 mg tablet TAKE ONE TABLET BY MOUTH TWICE A DAY completed ibuprofen 600 MG Ora l Tablet CASSEL ([facility]) Escitalopram 10 MG Oral Tablet escitalop ac 10 mg tablet TAKE ONE TABLET BY MOUTH EVERY DAY escitalopram 10 mg tablet TAKE ONE TABLET BY MOUTH EVERY DAY completed escitalopram 1 0 MG Oral Tablet CASSEL ([facility]) Prednisone 20 MG Oral Tablet prednisone 20 [...] completed prednisone 20 MG Oral Tablet ALEX ([facility]) Naproxen 500 MG Oral Tablet naproxen 500 mg tablet TAKE ONE TABLET BY MOUTH EVERY 12 HOURS FOR 7 DAYS naproxen 500 mg tablet TAKE ONE TABLET B Y MOUTH EVERY 12 HOURS FOR 7 DAYS completed na proxen 500 MG Oral Tablet ALEX ([facility]) sildenafil 100 MG Oral Tablet sildenafil 100 mg tablet Take 1 tablet every day by oral route as needed. sildenafil 100 mg tablet Take 1 tablet e very day by oral route as needed. 1 completed sildenafil 100 MG Oral Tablet ALEX ([facility]) meloxicam 7.5 MG Oral Tablet meloxicam 7 .5 mg tablet TAKE ONE TABLET BY MOUTH EVERY DAY meloxicam 7.5 mg tablet TAKE ONE TABLET BY MOUTH EVERY DAY completed meloxicam 7.5 MG Oral Tablet ALEX ([facility]) sildenafil 100 MG Oral Tablet sildenafil 100 mg tablet Take 1 tablet every day by oral route as needed. sildenafil 100 mg tablet Take 1 tablet e very day by oral route as needed. 1 completed sildenafil 100 MG Oral Tablet ALEX ([facility]) methylprednisolone 4 mg tablets in a dos e pack TAKE DOSE BRIJESH DIRECTED ON SHEET [id number] completed methylpre dnisolone 4 mg tablets in a dose pack ALEX ([facility]) sildenafil 100 MG Oral Tablet sildenafil 100 mg tablet Take 1 tablet every day by oral route as needed. sildenafil 100 mg tablet Take 1 tablet e very day by oral route as needed. 1 completed sildenafil 100 MG Oral Tablet ALEX ([facility]) methylprednisolone 4 mg tablets in a dos e pack TAKE DOSE BRIJESH DIRECTED ON SHEET [id number] completed methylpre dnisolone 4 mg tablets in a dose pack ALEX ([facility]) Fluzone Quad 60 mcg (15 mcg x 4)/0.5 mL intramuscular susp. INJECT DIRECTED [id number] completed Fluzon e Quad 60 mcg (15 mcg x 4)/0.5 mL intramuscular susp. ALEX ([facility]) tizanidine 2 MG Oral Tablet tizanidine 2 mg tablet TAKE ONE TABLET BY MOUTH EVERY 8 HOURS NEEDED FOR SPASMS tizanidine 2 mg tablet TAKE ONE TABLET B Y MOUTH EVERY 8 HOURS NEEDED FOR SPASMS completed tizanidine 2 MG Oral Tablet ALEX ([facility]) Escitalopram 20 MG Oral Tablet escitalopram 20 mg tabl et escitalopram 20 mg tablet completed escitalopram 20 MG Oral Tablet ALEX ([facility]) Acetaminophen 325 MG Oral Tablet acetami nophen 325 mg tablet TAKE ONE TABLET BY MOUTH EVERY 6 HOURS NEEDED FOR PAIN acetaminophen 325 mg tablet TAKE ONE TABLET BY MOUTH EVERY 6 HOURS NEEDED FOR PAIN completed acetaminophen 325 MG Oral Tablet ALEX ([facility]) sildenafil 100 MG Oral Tablet sildenafil 100 mg tablet Take 1 tablet every day by oral route as needed. sildenafil 100 mg tablet Take 1 tablet e very day by oral route as needed. 1 completed sildenafil 100 MG Oral Tablet CASSEL ([facility]) Omeprazole 20 MG Delayed Release Oral Ca psule omeprazole 20 mg capsule,delayed release TAKE ONE CAPSULE BY MOUTH EVERY DAY omeprazole 20 mg capsule,delayed release TAKE ONE CAPSULE BY MOUTH EVERY DAY completed omeprazole 20 MG Delayed Release Oral Capsule ALEX ([facility]) Prednisone 20 MG Oral Tablet prednisone 20 [...] completed prednisone 20 MG Oral Tablet ALEX ([facility]) Amoxicillin 875 MG / Clavulanate 125 MG Oral Tablet amoxicillin 875 mg-potassium clavulanate 125 mg tablet TAKE ONE TABLET BY MOUTH TWICE A DAY FOR 14 DAYS amoxicillin 875 mg-potassium clavulanate 125 mg tablet TAKE ONE TABLET BY MOUTH TWICE A DAY FOR 14 DAYS completed amoxicillin 875 MG / clavulanate 125 MG Oral Tablet ALEX ([facility]) Escitalopram 10 MG Oral Tablet escitalop ac 10 mg tablet TAKE ONE TABLET BY MOUTH EVERY DAY escitalopram 10 mg tablet TAKE ONE TABLET BY MOUTH EVERY DAY completed escitalopram 1 0 MG Oral Tablet ALEX ([facility]) gabapentin 300 MG Oral Capsule gabapenti n [...] completed gabapentin 300 MG Oral Capsule ALEX ([facility]) terbinafine 250 MG Oral Tablet terbinafi ne HCl 250 mg tablet TAKE 1 TABLET BY MOUTH ONCE DAILY terbinafine HCl 250 mg tablet TAKE 1 TAB LET BY MOUTH ONCE DAILY completed terbinafine 250 MG Oral Tablet ALEX ([facility]) gabapentin 300 MG Oral Capsule gabapenti n [...] THREE completed gabapentin 300 MG Oral Capsule CASSEL ([facility]) Naproxen 500 MG Oral Tablet naproxen 500 mg tablet TAKE ONE TABLET BY MOUTH EVERY 12 HOURS FOR 7 DAYS naproxen 500 mg tablet TAKE ONE TABLET B Y MOUTH EVERY 12 HOURS FOR 7 DAYS completed na proxen 500 MG Oral Tablet CASSEL ([facility]) methylprednisolone 4 mg tablets in a dos e pack TAKE DOSE BRIJESH DIRECTED ON SHEET [id number] completed methylpre dnisolone 4 mg tablets in a dose pack CASSEL ([facility]) meloxicam 7.5 MG Oral Tablet meloxicam 7 .5 mg tablet TAKE ONE TABLET BY MOUTH EVERY DAY meloxicam 7.5 mg tablet TAKE ONE TABLET BY MOUTH EVERY DAY completed meloxicam 7.5 MG Oral Tablet CASSEL ([facility]) meloxicam 7.5 MG Oral Tablet meloxicam 7 .5 mg tablet TAKE ONE TABLET BY MOUTH EVERY DAY meloxicam 7.5 mg tablet TAKE ONE TABLET BY MOUTH EVERY DAY completed meloxicam 7.5 MG Oral Tablet CASSEL ([facility]) Naproxen 500 MG Oral Tablet naproxen 500 mg tablet TAKE ONE TABLET BY MOUTH EVERY 12 HOURS FOR 7 DAYS naproxen 500 mg tablet TAKE ONE TABLET B Y MOUTH EVERY 12 HOURS FOR 7 DAYS completed na proxen 500 MG Oral Tablet CASSEL ([facility]) Omeprazole 20 MG Delayed Release Oral Ca psule omeprazole 20 mg capsule,delayed release TAKE ONE CAPSULE BY MOUTH EVERY DAY omeprazole 20 mg capsule,delayed release TAKE ONE CAPSULE BY MOUTH EVERY DAY completed omeprazole 20 MG Delayed Release Oral Capsule CASSEL ([facility]) Escitalopram 10 MG Oral Tablet escitalop ac 10 mg tablet TAKE ONE TABLET BY MOUTH EVERY DAY escitalopram 10 mg tablet TAKE ONE TABLET BY MOUTH EVERY DAY completed escitalopram 1 0 MG Oral Tablet CASSEL ([facility]) Escitalopram 20 MG Oral Tablet escitalopram 20 mg tabl et escitalopram 20 mg tablet completed escitalopram 20 MG Oral Tablet CASSEL ([facility]) Fluzone Quad 4050-7587 60 mcg (15 mcg x 4)/0.5 mL intramuscular susp. INJECT DIRECTED [id number] completed influe nza A virus A/[facility] (H3N2) antigen 0.03 MG/ML / influenza A virus A/[facility] (H1N1) antigen 0.03 MG/ML / influenza B virus B/[facility] antigen 0.03 MG/ML / influenza B virus B/[facility] antigen 0.03 MG/ML Injectable Suspension CASSEL ([facility]) tizanidine 2 MG Oral Tablet tizanidine 2 mg tablet TAKE ONE TABLET BY MOUTH EVERY 8 HOURS NEEDED FOR SPASMS tizanidine 2 mg tablet TAKE ONE TABLET B Y MOUTH EVERY 8 HOURS NEEDED FOR SPASMS completed tizanidine 2 MG Oral Tablet CASSEL ([facility]) Prednisone 20 MG Oral Tablet prednisone 20 [...] D completed prednisone 20 MG Oral Tablet CASSEL ([facility]) gabapentin 300 MG Oral Capsule gabapenti n [...] THREE completed gabapentin 300 MG Oral Capsule CASSEL ([facility]) Acetaminophen 325 MG Oral Tablet acetami nophen 325 mg tablet TAKE ONE TABLET BY MOUTH EVERY 6 HOURS NEEDED FOR PAIN acetaminophen 325 mg tablet TAKE ONE TABLET BY MOUTH EVERY 6 HOURS NEEDED FOR PAIN completed acetaminophen 325 MG Oral Tablet CASSEL ([facility]) Amoxicillin 875 MG / Clavulanate 125 MG Oral Tablet amoxicillin 875 mg-potassium clavulanate 125 mg tablet TAKE ONE TABLET BY MOUTH TWICE A DAY FOR 14 DAYS amoxicillin 875 mg-potassium clavulanate 125 mg tablet TAKE ONE TABLET BY MOUTH TWICE A DAY FOR 14 DAYS completed amoxicillin 875 MG / clavulanate 125 MG Oral Tablet CASSEL ([facility]) methylprednisolone 4 mg tablets in a dos e pack TAKE DOSE BRIJESH DIRECTED ON SHEET [id number] completed methylpre dnisolone 4 mg tablets in a dose pack CASSEL ([facility]) Tobramycin 3 MG/ML Ophthalmic Solution t obramycin 0.3 % eye drops INSTILL 2 DROPS INTO AFFECTED EYE S THREE TIMES A DAY FOR 7 DAYS tobramycin 0.3 % eye drops INSTILL 2 DROPS INTO AFFECTED EYE S THREE TIMES A DAY FOR 7 DAYS completed tobramycin 3 MG/ML Ophtha lmic Solution CASSEL ([facility]) Sulfamethoxazole 800 MG / Trimethoprim 1 60 MG Oral Tablet sulfamethoxazole 800 mg-trimethoprim 160 mg tablet TAKE 1 TABLET BY MOUTH TWO TIMES A DAY FOR 7 DAYS sulfamethoxazole 800 mg-trimethoprim 160 mg tablet TAKE 1 TABLET BY MOUTH TWO TIMES A DAY FOR 7 DAYS completed sulfamethoxazole 800 MG / trimethoprim 160 MG Oral Tablet CASSEL ([facility]) Escitalopram 20 MG Oral Tablet escitalopram 20 mg tabl et escitalopram 20 mg tablet completed escitalopram 20 MG Oral Tablet CASSEL ([facility]) gabapentin 300 MG Oral Capsule gabapenti n [...] THREE completed gabapentin 300 MG Oral Capsule CASSEL ([facility]) Acetaminophen 325 MG Oral Tablet acetami nophen 325 mg tablet TAKE ONE TABLET BY MOUTH EVERY 6 HOURS NEEDED FOR PAIN acetaminophen 325 mg tablet TAKE ONE TABLET BY MOUTH EVERY 6 HOURS NEEDED FOR PAIN completed acetaminophen 325 MG Oral Tablet ALEX ([facility]) Acetaminophen 325 MG Oral Tablet acetami nophen 325 mg tablet TAKE ONE TABLET BY MOUTH EVERY 6 HOURS NEEDED FOR PAIN acetaminophen 325 mg tablet TAKE ONE TABLET BY MOUTH EVERY 6 HOURS NEEDED FOR PAIN completed acetaminophen 325 MG Oral Tablet ALEX ([facility]) terbinafine 250 MG Oral Tablet terbinafi ne HCl 250 mg tablet TAKE 1 TABLET BY MOUTH ONCE DAILY terbinafine HCl 250 mg tablet TAKE 1 TAB LET BY MOUTH ONCE DAILY completed terbinafine 250 MG Oral Tablet CASSEL ([facility]) Tobramycin 3 MG/ML Ophthalmic Solution t obramycin 0.3 % eye drops INSTILL 2 DROPS INTO AFFECTED EYE S THREE TIMES A DAY FOR 7 DAYS tobramycin 0.3 % eye drops INSTILL 2 DROPS INTO AFFECTED EYE S THREE TIMES A DAY FOR 7 DAYS completed tobramycin 3 MG/ML Ophtha lmic Solution CASSEL ([facility]) meloxicam 7.5 MG Oral Tablet meloxicam 7 .5 mg tablet TAKE ONE TABLET BY MOUTH EVERY DAY meloxicam 7.5 mg tablet TAKE ONE TABLET BY MOUTH EVERY DAY completed meloxicam 7.5 MG Oral Tablet CASSEL ([facility]) Naproxen 500 MG Oral Tablet naproxen 500 mg tablet TAKE ONE TABLET BY MOUTH EVERY 12 HOURS FOR 7 DAYS naproxen 500 mg tablet TAKE ONE TABLET B Y MOUTH EVERY 12 HOURS FOR 7 DAYS completed na proxen 500 MG Oral Tablet CASSEL ([facility]) doxycycline hyclate 100 MG Oral Tablet d oxycycline hyclate 100 mg tablet TAKE ONE TABLET BY MOUTH TWICE A DAY doxycycline hyclate 100 mg tablet TAKE O NE TABLET BY MOUTH TWICE A DAY completed doxycycline hyclate 100 MG Oral Tablet ALEX ([facility]) sildenafil 100 MG Oral Tablet sildenafil 100 mg tablet Take 1 tablet every day by oral route as needed. sildenafil 100 mg tablet Take 1 tablet e very day by oral route as needed. 1 completed sildenafil 100 MG Oral Tablet CASSEL ([facility]) Furosemide 20 MG Oral Tablet furosemide 20 mg tablet TAKE ONE TABLET BY MOUTH EVERY DAY furosemide 20 mg tablet TAKE ONE TABLET BY MOUTH EVERY DAY completed furosemide 20 MG Oral Tablet CASSEL ([facility]) Fluzone Quad 60 mcg (15 mcg x 4)/0.5 mL intramuscular susp. INJECT DIRECTED [id number] completed Fluzon e Quad [id number] 60 mcg (15 mcg x 4)/0.5 mL intramuscular susp. ALEX ([facility]) Tobramycin 3 MG/ML Ophthalmic Solution t obramycin 0.3 % eye drops INSTILL 2 DROPS INTO AFFECTED EYE S THREE TIMES A DAY FOR 7 DAYS tobramycin 0.3 % eye drops INSTILL 2 DROPS INTO AFFECTED EYE S THREE TIMES A DAY FOR 7 DAYS completed tobramycin 3 MG/ML Ophtha lmic Solution ALEX ([facility]) meloxicam 7.5 MG Oral Tablet meloxicam 7 .5 mg tablet TAKE ONE TABLET BY MOUTH EVERY DAY meloxicam 7.5 mg tablet TAKE ONE TABLET BY MOUTH EVERY DAY completed meloxicam 7.5 MG Oral Tablet ALEX ([facility]) Escitalopram 10 MG Oral Tablet escitalop ac 10 mg tablet TAKE ONE TABLET BY MOUTH EVERY DAY escitalopram 10 mg tablet TAKE ONE TABLET BY MOUTH EVERY DAY completed escitalopram 1 0 MG Oral Tablet ALEX ([facility]) Naproxen 500 MG Oral Tablet naproxen 500 mg tablet TAKE ONE TABLET BY MOUTH EVERY 12 HOURS FOR 7 DAYS naproxen 500 mg tablet TAKE ONE TABLET B Y MOUTH EVERY 12 HOURS FOR 7 DAYS completed na proxen 500 MG Oral Tablet ALEX ([facility]) Amoxicillin 875 MG / Clavulanate 125 MG Oral Tablet amoxicillin 875 mg-potassium clavulanate 125 mg tablet TAKE ONE TABLET BY MOUTH TWICE A DAY FOR 14 DAYS amoxicillin 875 mg-potassium clavulanate 125 mg tablet TAKE ONE TABLET BY MOUTH TWICE A DAY FOR 14 DAYS completed amoxicillin 875 MG / clavulanate 125 MG Oral Tablet ALEX ([facility]) gabapentin 300 MG Oral Capsule gabapenti n [...] completed gabapentin 300 MG Oral Capsule ALEX ([facility]) Sulfamethoxazole 800 MG / Trimethoprim 1 60 MG Oral Tablet sulfamethoxazole 800 mg-trimethoprim 160 mg tablet TAKE 1 TABLET BY MOUTH TWO TIMES A DAY FOR 7 DAYS sulfamethoxazole 800 mg-trimethoprim 160 mg tablet TAKE 1 TABLET BY MOUTH TWO TIMES A DAY FOR 7 DAYS completed sulfamethoxazole 800 MG / trimethoprim 160 MG Oral Tablet ALEX ([facility]) tizanidine 2 MG Oral Tablet tizanidine 2 mg tablet TAKE ONE TABLET BY MOUTH EVERY 8 HOURS NEEDED FOR SPASMS tizanidine 2 mg tablet TAKE ONE TABLET B Y MOUTH EVERY 8 HOURS NEEDED FOR SPASMS completed tizanidine 2 MG Oral Tablet ALEX ([facility]) Fluzone Quad 60 mcg (15 mcg x 4)/0.5 mL intramuscular susp. INJECT DIRECTED [id number] completed influe nza A virus A/ (H3N2) antigen 0.03 MG/ML / influenza A virus A/Val (H1N1) antigen 0.03 MG/ML / influenza B virus B/[facility] antigen 0.03 MG/ML / influenza B virus B/[place] antigen 0.03 MG/ML Injectable Suspension ALEX ([facility]) Naproxen 500 MG Oral Tablet naproxen 500 mg tablet TAKE ONE TABLET BY MOUTH EVERY 12 HOURS FOR 7 DAYS naproxen 500 mg tablet TAKE ONE TABLET B Y MOUTH EVERY 12 HOURS FOR 7 DAYS completed na proxen 500 MG Oral Tablet CASSEL ([facility]) meloxicam 7.5 MG Oral Tablet meloxicam 7 .5 mg tablet TAKE ONE TABLET BY MOUTH EVERY DAY meloxicam 7.5 mg tablet TAKE ONE TABLET BY MOUTH EVERY DAY completed meloxicam 7.5 MG Oral Tablet CASSEL ([facility]) Naproxen 500 MG Oral Tablet naproxen 500 mg tablet TAKE ONE TABLET BY MOUTH EVERY 12 HOURS FOR 7 DAYS naproxen 500 mg tablet TAKE ONE TABLET B Y MOUTH EVERY 12 HOURS FOR 7 DAYS completed na [facility] 500 [facility] Fluzone Quad 60 mcg (15 mcg x 4)/0.5 mL intramuscular susp. INJECT DIRECTED [id number] completed Fluzon e Quad 60 mcg (15 mcg x 4)/0.5 mL intramuscular susp. ALEX ([facility]) Tobramycin 3 MG/ML Ophthalmic Solution t obramycin 0.3 % eye drops INSTILL 2 DROPS INTO AFFECTED EYE S THREE TIMES A DAY FOR 7 DAYS tobramycin 0.3 % eye drops INSTILL 2 DROPS INTO AFFECTED EYE S THREE TIMES A DAY FOR 7 DAYS completed tobramycin 3 MG/ML Ophtha lmic Solution CASSEL ([facility]) Escitalopram 20 MG Oral Tablet escitalopram 20 mg tabl et escitalopram 20 mg tablet completed escitalopram 20 MG Oral Tablet ALEX ([facility]) Fluzone Quad 60 mcg (15 mcg x 4)/0.5 mL intramuscular susp. INJECT DIRECTED [id number] completed Fluzon e Quad 60 mcg (15 mcg x 4)/0.5 mL intramuscular susp. ALEX ([facility]) meloxicam 7.5 MG Oral Tablet meloxicam 7 .5 mg tablet TAKE ONE TABLET BY MOUTH EVERY DAY meloxicam 7.5 mg tablet TAKE ONE TABLET BY MOUTH EVERY DAY completed meloxicam 7.5 MG Oral Tablet ALEX ([facility]) meloxicam 7.5 MG Oral Tablet meloxicam 7 .5 mg tablet TAKE ONE TABLET BY MOUTH EVERY DAY meloxicam 7.5 mg tablet TAKE ONE TABLET BY MOUTH EVERY DAY completed meloxicam 7.5 MG Oral Tablet CASSEL ([facility]) Amoxicillin 875 MG / Clavulanate 125 MG Oral Tablet amoxicillin 875 mg-potassium clavulanate 125 mg tablet TAKE ONE TABLET BY MOUTH TWICE A DAY FOR 14 DAYS amoxicillin 875 mg-potassium clavulanate 125 mg tablet TAKE ONE TABLET BY MOUTH TWICE A DAY FOR 14 DAYS completed amoxicillin 875 MG / clavulanate 125 MG Oral Tablet CASSEL ([facility]) tizanidine 2 MG Oral Tablet tizanidine 2 mg tablet TAKE ONE TABLET BY MOUTH EVERY 8 HOURS NEEDED FOR SPASMS tizanidine 2 mg tablet TAKE ONE TABLET B Y MOUTH EVERY 8 HOURS NEEDED FOR SPASMS completed tizanidine 2 MG Oral Tablet CASSEL ([facility]) Omeprazole 20 MG Delayed Release Oral Ca psule omeprazole 20 mg capsule,delayed release TAKE ONE CAPSULE BY MOUTH EVERY DAY omeprazole 20 mg capsule,delayed release TAKE ONE CAPSULE BY MOUTH EVERY DAY completed omeprazole 20 MG Delayed Release Oral Capsule ALEX ([facility]) Naproxen 500 MG Oral Tablet naproxen 500 mg tablet TAKE ONE TABLET BY MOUTH EVERY 12 HOURS FOR 7 DAYS naproxen 500 mg tablet TAKE ONE TABLET B Y MOUTH EVERY 12 HOURS FOR 7 DAYS completed na proxen 500 MG Oral Tablet ALEX ([facility]) Fluzone Quad [id number] 60 mcg (15 mcg x 4)/0.5 mL intramuscular susp. INJECT DIRECTED [id number] completed influe nza A virus A/[facility] (H3N2) antigen 0.03 MG/ML / influenza A virus A/ (H1N1) antigen 0.03 MG/ML / influenza B virus B/[facility] antigen 0.03 MG/ML / influenza B virus B/Val antigen 0.03 MG/ML Injectable Suspension ALEX ([facility]) gabapentin 300 MG Oral Capsule gabapenti n [...] completed gabapentin 300 MG Oral Capsule ALEX ([facility]) sildenafil 100 MG Oral Tablet sildenafil 100 mg tablet Take 1 tablet every day by oral route as needed. sildenafil 100 mg tablet Take 1 tablet e very day by oral route as needed. 1 completed sildenafil 100 MG Oral Tablet ALEX ([facility]) Amoxicillin 875 MG / Clavulanate 125 MG Oral Tablet amoxicillin 875 mg-potassium clavulanate 125 mg tablet TAKE ONE TABLET BY MOUTH TWICE A DAY FOR 14 DAYS amoxicillin 875 mg-potassium clavulanate 125 mg tablet TAKE ONE TABLET BY MOUTH TWICE A DAY FOR 14 DAYS completed amoxicillin 875 MG / clavulanate 125 MG Oral Tablet ALEX ([facility]) Omeprazole 20 MG Delayed Release Oral Ca psule omeprazole 20 mg capsule,delayed release TAKE ONE CAPSULE BY MOUTH EVERY DAY omeprazole 20 mg capsule,delayed release TAKE ONE CAPSULE BY MOUTH EVERY DAY completed omeprazole 20 MG Delayed Release Oral Capsule ALEX ([facility]) Prednisone 20 MG Oral Tablet prednisone 20 [...] completed prednisone 20 MG Oral Tablet ALEX ([facility]) Prednisone 20 MG Oral Tablet prednisone 20 [...] completed prednisone 20 MG Oral Tablet ALEX ([facility]) Furosemide 20 MG Oral Tablet furosemide 20 mg tablet TAKE ONE TABLET BY MOUTH EVERY DAY furosemide 20 mg tablet TAKE ONE TABLET BY MOUTH EVERY DAY completed furosemide 20 MG Oral Tablet CASSEL ([facility]) methylprednisolone 4 mg tablets in a dos e pack TAKE DOSE BRIJESH DIRECTED ON SHEET [id number] completed methylpre dnisolone 4 mg tablets in a dose pack ALEX ([facility]) tizanidine 2 MG Oral Tablet tizanidine 2 mg tablet TAKE ONE TABLET BY MOUTH EVERY 8 HOURS NEEDED FOR SPASMS tizanidine 2 mg tablet TAKE ONE TABLET B Y MOUTH EVERY 8 HOURS NEEDED FOR SPASMS completed tizanidine 2 MG Oral Tablet CASSEL ([facility]) Omeprazole 20 MG Delayed Release Oral Ca psule omeprazole 20 mg capsule,delayed release TAKE ONE CAPSULE BY MOUTH EVERY DAY omeprazole 20 mg capsule,delayed release TAKE ONE CAPSULE BY MOUTH EVERY DAY completed omeprazole 20 MG Delayed Release Oral Capsule ALEX ([facility]) Acetaminophen 325 MG Oral Tablet acetami nophen 325 mg tablet TAKE ONE TABLET BY MOUTH EVERY 6 HOURS NEEDED FOR PAIN acetaminophen 325 mg tablet TAKE ONE TABLET BY MOUTH EVERY 6 HOURS NEEDED FOR PAIN completed acetaminophen 325 MG Oral Tablet ALEX ([facility]) Amoxicillin 875 MG / Clavulanate 125 MG Oral Tablet amoxicillin 875 mg-potassium clavulanate 125 mg tablet TAKE ONE TABLET BY MOUTH TWICE A DAY FOR 14 DAYS amoxicillin 875 mg-potassium clavulanate 125 mg tablet TAKE ONE TABLET BY MOUTH TWICE A DAY FOR 14 DAYS completed amoxicillin 875 MG / clavulanate 125 MG Oral Tablet ALEX ([facility]) Amoxicillin 875 MG / Clavulanate 125 MG Oral Tablet amoxicillin 875 mg-potassium clavulanate 125 mg tablet TAKE ONE TABLET BY MOUTH TWICE A DAY FOR 14 DAYS amoxicillin 875 mg-potassium clavulanate 125 mg tablet TAKE ONE TABLET BY MOUTH TWICE A DAY FOR 14 DAYS completed amoxicillin 875 MG / clavulanate 125 MG Oral Tablet ALEX ([facility]) doxycycline hyclate 100 MG Oral Tablet d oxycycline hyclate 100 mg tablet TAKE ONE TABLET BY MOUTH TWICE A DAY doxycycline hyclate 100 mg tablet TAKE O NE TABLET BY MOUTH TWICE A DAY completed doxycycline hyclate 100 MG Oral Tablet ALEX ([facility]) tizanidine 2 MG Oral Tablet tizanidine 2 mg tablet TAKE ONE TABLET BY MOUTH EVERY 8 HOURS NEEDED FOR SPASMS tizanidine 2 mg tablet TAKE ONE TABLET B Y MOUTH EVERY 8 HOURS NEEDED FOR SPASMS completed tizanidine 2 MG Oral Tablet ALEX ([facility]) doxycycline hyclate 100 MG Oral Tablet d oxycycline hyclate 100 mg tablet TAKE ONE TABLET BY MOUTH TWICE A DAY doxycycline hyclate 100 mg tablet TAKE O NE TABLET BY MOUTH TWICE A DAY completed doxycycline hyclate 100 MG Oral Tablet ALEX ([facility]) Acetaminophen 325 MG Oral Tablet acetami nophen 325 mg tablet TAKE ONE TABLET BY MOUTH EVERY 6 HOURS NEEDED FOR PAIN acetaminophen 325 mg tablet TAKE ONE TABLET BY MOUTH EVERY 6 HOURS NEEDED FOR PAIN completed acetaminophen 325 MG Oral Tablet ALEX ([facility]) Acetaminophen 325 MG Oral Tablet acetami nophen 325 mg tablet TAKE ONE TABLET BY MOUTH EVERY 6 HOURS NEEDED FOR PAIN acetaminophen 325 mg tablet TAKE ONE TABLET BY MOUTH EVERY 6 HOURS NEEDED FOR PAIN completed acetaminophen 325 MG Oral Tablet ALEX ([facility]) meloxicam 7.5 MG Oral Tablet meloxicam 7 .5 mg tablet TAKE ONE TABLET BY MOUTH EVERY DAY meloxicam 7.5 mg tablet TAKE ONE TABLET BY MOUTH EVERY DAY completed meloxicam 7.5 MG Oral Tablet ALEX ([facility]) tizanidine 2 MG Oral Tablet tizanidine 2 mg tablet TAKE ONE TABLET BY MOUTH EVERY 8 HOURS NEEDED FOR SPASMS tizanidine 2 mg tablet TAKE ONE TABLET B Y MOUTH EVERY 8 HOURS NEEDED FOR SPASMS completed tizanidine 2 MG Oral Tablet ALEX ([facility]) Furosemide 20 MG Oral Tablet furosemide 20 mg tablet TAKE ONE TABLET BY MOUTH EVERY DAY furosemide 20 mg tablet TAKE ONE TABLET BY MOUTH EVERY DAY completed furosemide 20 MG Oral Tablet ALEX ([facility]) Furosemide 20 MG Oral Tablet furosemide 20 mg tablet TAKE ONE TABLET BY MOUTH EVERY DAY furosemide 20 mg tablet TAKE ONE TABLET BY MOUTH EVERY DAY completed furosemide 20 MG Oral Tablet CASSEL ([facility]) gabapentin 300 MG Oral Capsule gabapenti n [...] THREE completed gabapentin 300 MG Oral Capsule CASSEL ([facility]) Escitalopram 10 MG Oral Tablet escitalop ac 10 mg tablet TAKE ONE TABLET BY MOUTH EVERY DAY escitalopram 10 mg tablet TAKE ONE TABLET BY MOUTH EVERY DAY completed escitalopram 1 0 MG Oral Tablet CASSEL ([facility]) doxycycline hyclate 100 MG Oral Tablet d oxycycline hyclate 100 mg tablet TAKE ONE TABLET BY MOUTH TWICE A DAY doxycycline hyclate 100 mg tablet TAKE O NE TABLET BY MOUTH TWICE A DAY completed doxycycline hyclate 100 MG Oral Tablet ALEX ([facility]) Naproxen 500 MG Oral Tablet naproxen 500 mg tablet TAKE ONE TABLET BY MOUTH EVERY 12 HOURS FOR 7 DAYS naproxen 500 mg tablet TAKE ONE TABLET B Y MOUTH EVERY 12 HOURS FOR 7 DAYS completed na proxen 500 MG Oral Tablet CASSEL ([facility]) Acetaminophen 325 MG Oral Tablet acetami nophen 325 mg tablet TAKE ONE TABLET BY MOUTH EVERY 6 HOURS NEEDED FOR PAIN acetaminophen 325 mg tablet TAKE ONE TABLET BY MOUTH EVERY 6 HOURS NEEDED FOR PAIN completed acetaminophen 325 MG Oral Tablet CASSEL ([facility]) Escitalopram 10 MG Oral Tablet escitalop ac 10 mg tablet TAKE ONE TABLET BY MOUTH EVERY DAY escitalopram 10 mg tablet TAKE ONE TABLET BY MOUTH EVERY DAY completed escitalopram 1 0 MG Oral Tablet CASSEL ([facility]) tizanidine 2 MG Oral Tablet tizanidine 2 mg tablet TAKE ONE TABLET BY MOUTH EVERY 8 HOURS NEEDED FOR SPASMS tizanidine 2 mg tablet TAKE ONE TABLET B Y MOUTH EVERY 8 HOURS NEEDED FOR SPASMS completed tizanidine 2 MG Oral Tablet ALEX ([facility]) Naproxen 500 MG Oral Tablet naproxen 500 mg tablet TAKE ONE TABLET BY MOUTH EVERY 12 HOURS FOR 7 DAYS naproxen 500 mg tablet TAKE ONE TABLET B Y MOUTH EVERY 12 HOURS FOR 7 DAYS completed na proxen 500 MG Oral Tablet ALEX ([facility]) tizanidine 2 MG Oral Tablet tizanidine 2 mg tablet TAKE ONE TABLET BY MOUTH EVERY 8 HOURS NEEDED FOR SPASMS tizanidine 2 mg tablet TAKE ONE TABLET B Y MOUTH EVERY 8 HOURS NEEDED FOR SPASMS completed tizanidine 2 MG Oral Tablet CASSEL ([facility]) Escitalopram 10 MG Oral Tablet escitalop ac 10 mg tablet TAKE ONE TABLET BY MOUTH EVERY DAY escitalopram 10 mg tablet TAKE ONE TABLET BY MOUTH EVERY DAY completed escitalopram 1 0 MG Oral Tablet CASSEL ([facility]) Acetaminophen 325 MG Oral Tablet acetami nophen 325 mg tablet TAKE ONE TABLET BY MOUTH EVERY 6 HOURS NEEDED FOR PAIN acetaminophen 325 mg tablet TAKE ONE TABLET BY MOUTH EVERY 6 HOURS NEEDED FOR PAIN completed acetaminophen 325 MG Oral Tablet CASSEL ([facility]) terbinafine 250 MG Oral Tablet terbinafi ne HCl 250 mg tablet TAKE 1 TABLET BY MOUTH ONCE DAILY terbinafine HCl 250 mg tablet TAKE 1 TAB LET BY MOUTH ONCE DAILY completed terbinafine 250 MG Oral Tablet CASSEL ([facility]) Omeprazole 20 MG Delayed Release Oral Ca psule omeprazole 20 mg capsule,delayed release TAKE ONE CAPSULE BY MOUTH EVERY DAY omeprazole 20 mg capsule,delayed release TAKE ONE CAPSULE BY MOUTH EVERY DAY completed omeprazole 20 MG Delayed Release Oral Capsule ALEX ([facility]) gabapentin 300 MG Oral Capsule gabapenti n [...] completed gabapentin 300 MG Oral Capsule ALEX ([facility]) doxycycline hyclate 100 MG Oral Tablet d oxycycline hyclate 100 mg tablet TAKE ONE TABLET BY MOUTH TWICE A DAY doxycycline hyclate 100 mg tablet TAKE O NE TABLET BY MOUTH TWICE A DAY completed doxycycline hyclate 100 MG Oral Tablet ALEX ([facility]) Fluzone Quad 60 mcg (15 mcg x 4)/0.5 mL intramuscular susp. INJECT DIRECTED [id number] completed Fluzon e Quad 60 mcg (15 mcg x 4)/0.5 mL intramuscular susp. ALEX ([facility]) Insurance Providers Payer name Policy type / Coverage type Policy ID Covered democrat ID Covered democrat's relationship to brewer Policy Brewer Plan Information G[facility] Not Use[id number] [place] Med[place] Part B [id number] Self MEDICARE A [id number] Self [id number] A MEDICAID M [id number] Self [id number] EXCELLUS I [id number] Self [id number] Medicaid S [id number] [facility] I [id number] Self [id number] Managed Care - Community Plan [facility] P [id number] S [id number] [facility] Community Plan [facility] Part B [id number] Self Managed Care - Community Plan [facility] P [id number] S [id number] Medicaid S [id number] Managed Care - Community Plan [facility] P [id number] S [id number] Medicare P [id number] S [id number] A Medicare P [id number] S [id number] A Medicaid S [id number] S [id number] MEDICAID [id number] SP [id number] MEDICAID [id number] SP [id number] [place] Primary [id number] Self [place] Medig[place] Part B [id number] Self Medicare C [id number] SELF [id number] A MEDICAID [id number] SP [id number] Medicaid [facility] Healthcare S D [id number] SELF [id number] Medicaid S [id number] S [id number] Medicaid S [id number] S [id number] Medicare Wrap O [id number] S [id number] [facility] [id number] SP [id number] Medicare P [id number] S [id number] D [facility] O [id number] S [id number] [facility] P [id number] S [id number] Medicare S [id number] S [id number] A MEDICAID [id number] SP [id number] Medicaid S [id number] S [id number] EMEDNY [id number] SP [id number] [facility] MCRO [id number] SP [id number] UHC UNITED MEDICARE DUAL G [id number] Self [id number] [facility] P [id number] S [id number] Medicaid S [id number] S [id number] [facility] [id number] S [id number] Medicare Dme Supplies Medigap Part B [id number] Self DME Jurisdiction A [facility] C [id number] SELF [id number] [facility] Ezequiel/MCR Medigap Part B [id number] Self [place] Part B [id number] [place] Medicare Primary [id number] Self MEDICAID UNAVAILABLE UNAVAILA BLE UN COMMUNITY PLAN MCDO [id number] SP [id number] Medicare P [id number] S [id number] MEDICARE [id number] SP [id number] MEDICARE [id number] SP [id number] [facility] P UNAVAILABLE [id number] S UNAVAILABLE SELF PAY UNAVAILABLE SP UNAVAILA BLE BLUE [employer]OSS [place] PLAN [id number] SP [id number] MEDICAID W [id number] S [id number] MEDICAID W [id number] S [id number] BLUE CHOICE OPTION O [id number] S [id number] O BLUE [id number] SP [id number] O [id number] S [id number] S [id number] EMEDNY [id number] SP [id number] [facility](MCAID) O [id number] S [id number] Medicaid Dental O [id number] S [id number] MEDICARE [id number] SP [id number] MEDICAID M [id number] S [id number] MEDICAID [id number] SP [id number] [facility] [id number] SP [id number] MEDICAID [id number] SP [id number] [place] Medicare Primary [id number] Self [id number] [place] Med[place] Part B [id number] Self [id number] [place] Medicare Primary [id number] Self [id number] [facility] Medigap Part B [id number] Self [id number] Dual Complete Medigap Part B [id number] Self [id number] [place] Medicare Primary [id number] Self 1 [id number] [place] Medig[place] Part B [id number] Self [id number] [place] Medicare Primary [id number] Self [id number] [place] Medicare Primary [id number] Self 1 [id number] [place] Med[place] Part B [id number] Self [id number] [place] Medicare Primary [id number] Self [id number] Medicare [facility]/[place] Medicare Primary [id number] Self 1 [id number] Medicaid [facility] Part B [id number] Self [id number] Medicare [facility] Medicare Primary [id number] Self [id number] ANSI-Medicare Part B [id number] ANSI-Medicaid [id number] ANSI-Medicare Part B [id number] MEDICARE [facility] [id number] SP [id number] Medicare [facility] Medicare Primary [id number] Self 1 [id number] [facility] Medigap Part B [id number] Self [id number] [place] Medig[place] Part B [id number] Self [id number] [facility] Health Maintenance Organization (HMO) [id number] Self [id number] [facility] [id number] SP [id number] MEDICARE [id number] SP [id number] MEDICARE [id number] SP [id number] A Medicare Wrap O [id number] S [id number] [facility] [employer] P [id number] S [id number] [facility] [id number] SP [id number] MEDICARE C [id number] S [id number] A Problems, Conditions, and Diagnoses Code Display Name Description Problem Type Effective Dates Data Source(s) [id number] Decreased testosterone level Decreased Testosterone Le lynda Problem 11/27/2020 12:00:00 AM EDT ALEX ([facility] er) [id number] Decreased testosterone level Decreased Testosterone Le lynda Problem 11/27/2020 12:00:00 AM EDT ALEX ([facility]) [id number] Decreased testosterone level Decreased Testosterone Le lynda Problem 11/27/2020 12:00:00 AM EDT ALEX ([facility] er) [id number] Decreased testosterone level Decreased Testosterone Le lynda Problem 11/27/2020 12:00:00 AM EDT ALEX ([facility] er) [id number] Decreased testosterone level Decreased Testosterone Le lynda Problem 11/27/2020 12:00:00 AM EDT ALEX ([facility]) [id number] Decreased testosterone level Decreased Testosterone Le lynda Problem 11/27/2020 12:00:00 AM EDT ALEX ([facility] er) [id number] Decreased testosterone level Decreased Testosterone Le lynda Problem 11/27/2020 12:00:00 AM EDT ALEX ([facility] er) [id number] Decreased testosterone level Decreased Testosterone Le lynda Problem 11/27/2020 12:00:00 AM EDT ALEX ([facility]) [id number] Decreased testosterone level Decreased Testosterone Le lynda Problem 11/27/2020 12:00:00 AM EDT ALEX ([facility]) [id number] Decreased testosterone level Decreased Testosterone Le lynda Problem 11/27/2020 12:00:00 AM EDT ALEX ([facility]) [id number] Decreased testosterone level Decreased Testosterone Le lynda Problem 11/27/2020 12:00:00 AM EDT ALEX ([facility] er) [id number] Decreased testosterone level Decreased Testosterone Le lynda Problem 11/27/2020 12:00:00 AM EDT ALEX ([facility] er) [id number] Decreased testosterone level Decreased Testosterone Le lynda Problem 11/27/2020 12:00:00 AM EDT ALEX ([facility]) [id number] Decreased testosterone level Decreased Testosterone Le lynda Problem 11/27/2020 12:00:00 AM EDT ALEX ([facility]) [id number] Decreased testosterone level Decreased Testosterone Le lynda Problem 11/27/2020 12:00:00 AM EDT ALEX ([facility]) [id number] Decreased testosterone level Decreased Testosterone Le lynda Problem 11/27/2020 12:00:00 AM EDT ALEX ([facility]) [id number] Erectile dysfunction Erectile Dysfunction Problem 09/19/2020 12:00:00 AM EST ALEX ([facility]) [id number] Erectile dysfunction Erectile Dysfunction Problem 09/19/2020 12:00:00 AM EST ALEX ([facility]) [id number] Erectile dysfunction Erectile Dysfunction Problem 09/19/2020 12:00:00 AM EST ALEX ([facility] er) [id number] Erectile dysfunction Erectile Dysfunction Problem 09/19/2020 12:00:00 AM EST ALEX ([facility]) [id number] Erectile dysfunction Erectile Dysfunction Problem 09/19/2020 12:00:00 AM EST ALEX ([facility]) [id number] Erectile dysfunction Erectile Dysfunction Problem 09/19/2020 12:00:00 AM EST ALEX ([facility]) [id number] Erectile dysfunction Erectile Dysfunction Problem 09/19/2020 12:00:00 AM EST ALEX ([facility]) [id number] Erectile dysfunction Erectile Dysfunction Problem 09/19/2020 12:00:00 AM EST ALEX ([facility] er) [id number] Erectile dysfunction Erectile Dysfunction Problem 09/19/2020 12:00:00 AM EST ALEX ([facility]) [id number] Erectile dysfunction Erectile Dysfunction Problem 09/19/2020 12:00:00 AM EST ALEX ([facility]) [id number] Erectile dysfunction Erectile Dysfunction Problem 09/19/2020 12:00:00 AM EST ALEX ([facility]) [id number] Erectile dysfunction Erectile Dysfunction Problem 09/19/2020 12:00:00 AM EST ALEX ([facility]) [id number] Erectile dysfunction Erectile Dysfunction Problem 09/19/2020 12:00:00 AM EST ALEX ([facility]) [id number] Erectile dysfunction Erectile Dysfunction Problem 09/19/2020 12:00:00 AM EST ALEX ([facility]) [id number] Erectile dysfunction Erectile Dysfunction Problem 09/19/2020 12:00:00 AM EST ALEX ([facility]) [id number] Erectile dysfunction Erectile Dysfunction Problem 09/19/2020 12:00:00 AM EST ALEX ([facility]) [id number] Erectile dysfunction Erectile Dysfunction Problem 09/19/2020 12:00:00 AM EST ALEX ([facility]) [id number] Erectile dysfunction Erectile Dysfunction Problem 09/19/2020 12:00:00 AM EST ALEX ([facility]) [id number] Primary erectile dysfunction Primary Erectile Dysfunct ion Problem 05/08/2020 12:00:00 AM EDT ALEX ([facility] er) [id number] Primary erectile dysfunction Primary Erectile Dysfunct ion Problem 05/08/2020 12:00:00 AM EDT ALEX ([facility] er) [id number] Primary erectile dysfunction Primary Erectile Dysfunct ion Problem 05/08/2020 12:00:00 AM EDT ALEX ([facility] er) [id number] Primary erectile dysfunction Primary Erectile Dysfunct ion Problem 05/08/2020 12:00:00 AM EDT ALEX ([facility] er) [id number] Primary erectile dysfunction Primary Erectile Dysfunct ion Problem 05/08/2020 12:00:00 AM EDT ALEX ([facility] er) [id number] Primary erectile dysfunction Primary Erectile Dysfunct ion Problem 05/08/2020 12:00:00 AM EDT ALEX ([facility]) [id number] Primary erectile dysfunction Primary Erectile Dysfunct ion Problem 05/08/2020 12:00:00 AM EDT ALEX ([facility] er) [id number] Primary erectile dysfunction Primary Erectile Dysfunct ion Problem 05/08/2020 12:00:00 AM EDT ALEX ([facility]) [id number] Primary erectile dysfunction Primary Erectile Dysfunct ion Problem 05/08/2020 12:00:00 AM EDT ALEX ([facility] er) [id number] Primary erectile dysfunction Primary Erectile Dysfunct ion Problem 05/08/2020 12:00:00 AM EDT ALEX ([facility] er) [id number] Primary erectile dysfunction Primary Erectile Dysfunct ion Problem 05/08/2020 12:00:00 AM EDT ALEX ([facility] er) [id number] Primary erectile dysfunction Primary Erectile Dysfunct ion Problem 05/08/2020 12:00:00 AM EDT ALEX ([facility]) [id number] Primary erectile dysfunction Primary Erectile Dysfunct ion Problem 05/08/2020 12:00:00 AM EDT ALEX ([facility]) [id number] Primary erectile dysfunction Primary Erectile Dysfunct ion Problem 05/08/2020 12:00:00 AM EDT ALEX ([facility] er) [id number] Primary erectile dysfunction Primary Erectile Dysfunct ion Problem 05/08/2020 12:00:00 AM EDT ALEX ([facility] er) [id number] Primary erectile dysfunction Primary Erectile Dysfunct ion Problem 05/08/2020 12:00:00 AM EDT ALEX ([facility]) [id number] Primary erectile dysfunction Primary Erectile Dysfunct ion Problem 05/08/2020 12:00:00 AM EDT ALEX ([facility] er) [id number] Primary erectile dysfunction Primary Erectile Dysfunct ion Problem 05/08/2020 12:00:00 AM EDT ALEX ([facility] er) [id number] Primary erectile dysfunction Primary Erectile Dysfunct ion Problem 05/08/2020 12:00:00 AM EDT ALEX ([facility] er) [id number] SNOMED CT Concept SNOMED CT Concept Problem 04/25 05:55:28 PM EDT ALEX ([facility] er) [id number] Depressive disorder Depressive Disorder Problem 1 05:55:28 PM EDT ALEX ([facility] er) [id number] SNOMED CT Concept SNOMED CT Concept Problem 04/25 05:55:28 PM EDT ALEX ([facility] er) [id number] Depressive disorder Depressive Disorder Problem 1 05:55:28 PM EDT ALEX ([facility] er) [id number] SNOMED CT Concept SNOMED CT Concept Problem 04/25 05:55:28 PM EDT ALEX ([facility] er) [id number] Depressive disorder Depressive Disorder Problem 1 05:55:28 PM EDT ALEX ([facility] er) [id number] SNOMED CT Concept SNOMED CT Concept Problem 04/25 05:55:28 PM EDT ALEX ([facility] er) [id number] Depressive disorder Depressive Disorder Problem 1 05:55:28 PM EDT ALEX ([facility]) [id number] SNOMED CT Concept SNOMED CT Concept Problem 04/25 05:55:28 PM EDT ALEX ([facility] er) [id number] Depressive disorder Depressive Disorder Problem 1 05:55:28 PM EDT ALEX ([facility] er) [id number] Depressive disorder Depressive Disorder Problem 1 05:55:28 PM EDT ALEX ([facility] er) [id number] SNOMED CT Concept SNOMED CT Concept Problem 04/25 05:55:28 PM EDT ALEX ([facility] er) [id number] SNOMED CT Concept SNOMED CT Concept Problem 04/25 05:55:28 PM EDT ALEX ([facility]) [id number] Depressive disorder Depressive Disorder Problem 1 05:55:28 PM EDT ALEX ([facility]) [id number] SNOMED CT Concept SNOMED CT Concept Problem 04/25 05:55:28 PM EDT ALEX ([facility]) [id number] Depressive disorder Depressive Disorder Problem 1 05:55:28 PM EDT ALEX ([facility]) [id number] SNOMED CT Concept SNOMED CT Concept Problem 04/25 05:55:28 PM EDT ALEX ([facility]) [id number] Depressive disorder Depressive Disorder Problem 1 05:55:28 PM EDT ALEX ([facility]) [id number] SNOMED CT Concept SNOMED CT Concept Problem 04/25 05:55:28 PM EDT ALEX ([facility]) [id number] Depressive disorder Depressive Disorder Problem 1 05:55:28 PM EDT ALEX ([facility]) [id number] SNOMED CT Concept SNOMED CT Concept Problem 04/25 05:55:28 PM EDT ALEX ([facility] er) [id number] Depressive disorder Depressive Disorder Problem 1 05:55:28 PM EDT ALEX ([facility]) [id number] SNOMED CT Concept SNOMED CT Concept Problem 04/25 05:55:28 PM EDT ALEX ([facility]) [id number] Depressive disorder Depressive Disorder Problem 1 05:55:28 PM EDT ALEX ([facility]) [id number] Depressive disorder Depressive Disorder Problem 1 05:55:28 PM EDT ALEX ([facility]) [id number] SNOMED CT Concept SNOMED CT Concept Problem 04/25 05:55:28 PM EDT ALEX ([facility]) [id number] Depressive disorder Depressive Disorder Problem 1 05:55:28 PM EDT ALEX ([facility]) [id number] SNOMED CT Concept SNOMED CT Concept Problem 04/25 05:55:28 PM EDT ALEX ([facility] er) [id number] SNOMED CT Concept SNOMED CT Concept Problem 04/25 05:55:28 PM EDT ALEX ([facility]) [id number] Depressive disorder Depressive Disorder Problem 1 05:55:28 PM EDT ALEX ([facility]) [id number] SNOMED CT Concept SNOMED CT Concept Problem 04/25 05:55:28 PM EDT ALEX ([facility] er) [id number] Depressive disorder Depressive Disorder Problem 1 05:55:28 PM EDT ALEX ([facility]) [id number] SNOMED CT Concept SNOMED CT Concept Problem 04/25 05:55:28 PM EDT ALEX ([facility] er) [id number] Depressive disorder Depressive Disorder Problem 1 05:55:28 PM EDT ALEX ([facility]) [id number] SNOMED CT Concept SNOMED CT Concept Problem 04/25 05:55:28 PM EDT ALEX ([facility] er) [id number] Depressive disorder Depressive Disorder Problem 1 05:55:28 PM EDT ALEX ([facility]) [id number] SNOMED CT Concept SNOMED CT Concept Problem 04/25 05:55:28 PM EDT ALEX ([facility]) [id number] Depressive disorder Depressive Disorder Problem 1 05:55:28 PM EDT ALEX ([facility]) Surgeries/Procedures Procedure Description Date Indications Data Source(s) XR, chest, 2 view 04/18/2021 12:00:00 AM EDT [facility]) XR, chest, 2 view 04/18/2021 [facility] 04/18/2021 12:00:00 AM EDT CASSEL ([facility]) XR, chest, 2 view 04/18/2021 12:00:00 AM EDT [facility] 04/02/2021 12:00:00 AM EDT MEDDARVIN ([facility], ) SBSQ HOSPITAL CARE/DAY 25 MINUTES 04/01/2021 12:00:00 AM EDT MEDENT ([facility]) INITIAL HOSPITAL CARE/DAY 30 MINUTES 03/31/2021 12:00: 00 AM EDT UZMA ([facility], ) Results ID Date Data Source [id number] 05/01/2021 01:23:00 PM EDT CASSEL ([facility]) Name Value Range Interpretation Code Description Data Huma rce(s) Supporting Document(s) sars-cov-2 negative negative Sars-cov-2 [facility]) ID Date Data Source [id number] 05/01/2021 01:23:00 PM EDT [facility]) Name Value Range Interpretation Code Description Data Huma rce(s) Supporting Document(s) sars-cov-2 negative negative Sars-cov-2 [facility]) ID Date Data Source [id number] 03/31/2021 01:20:00 AM EDT [facility] Name Value Range Interpretation Code Description Data Huma rce(s) Supporting Document(s) SARS-CoV-2 (COVID 19) NEGATIVE - SARS-CoV-2 (COVID19) [facility] This lab was ordered by [facility] a nd reported by [facility]. ID Date Data Source [id number] 03/28/2021 02:51:00 PM EDT [facility]) Name Value Range Interpretation Code Description Data Huma rce(s) Supporting Document(s) SARS-CoV-2 (COVID-19) RNA [Presence] in Respiratory specimen by OC with probe detection not detected not detected Sars Cov 2 RNA [facility]) ID Date Data Source [id number] 03/28/2021 02:51:00 PM EDT [facility]) Name Value Range Interpretation Code Description Data Huma rce(s) Supporting Document(s) SARS-CoV-2 (COVID-19) RNA [Presence] in Respiratory specimen by OC with probe detection not detected not detected Sars Cov 2 RNA [facility]) ID Date Data Source [id number] 03/28/2021 02:51:00 PM EDT [facility]) Name Value Range Interpretation Code Description Data Huma rce(s) Supporting Document(s) SARS-CoV-2 (COVID-19) RNA [Presence] in Respiratory specimen by OC with probe detection not detected not detected Sars Cov 2 RNA [facility]) ID Date Data Source [id number] 03/28/2021 02:51:00 PM EDT [facility]) Name Value Range Interpretation Code Description Data Huma rce(s) Supporting Document(s) SARS-CoV-2 (COVID-19) RNA [Presence] in Respiratory specimen by OC with probe detection not detected not detected Sars Cov 2 RNA [facility]) ID Date Data Source [id number] 03/28/2021 02:51:00 PM EDT [facility]) Name Value Range Interpretation Code Description Data Huma rce(s) Supporting Document(s) SARS-CoV-2 (COVID-19) RNA [Presence] in Respiratory specimen by OC with probe detection not detected not detected Sars Cov 2 RNA [facility]) ID Date Data Source [id number] 03/28/2021 02:51:00 PM EDT [facility]) Name Value Range Interpretation Code Description Data Huma rce(s) Supporting Document(s) SARS-CoV-2 (COVID-19) RNA [Presence] in Respiratory specimen by OC with probe detection not detected not detected Sars Cov 2 RNA [facility]) ID Date Data Source [id number] 03/30/2021 11:58:00 AM EDT [facility] Name Value Range Interpretation Code Description Data Huma rce(s) Supporting Document(s) [id number] NOT DETECTED [facility] A Not Detected result means that SARS-Co V-2 RNA was notpresent in the specimen above the limit of detection.Test Method: Nucleic Acid Amplification Test includingreverse erp analyst polymerase chain reaction (RT-PCR)and erp analyst mediated amplification (TMA). The testmethod meets the [...] health care providers andpatients using the following websites:[email or web address]-[email or web address] [email or web address]://[email or web address]/[email or web address]/fact-fjxsg6Ziox test has been authorized by the FDA under anEmergency Use Authorization (EUA) for use by authorizedlaboratories.Due to the current public health emergency, [facility] is accepting samples from appropriateclinical sources collected using wide variety ofswabs and transport media for COVID-19. Not detectedtest results derived from specimens received in non-commercially manufactured viral collection kits or thosenot yet authorized by FDA for COVID-19 testing should becautiously evaluated and take extra precautions such assuch as additional clinical monitoring, including collectionof an additional specimen.Additional information about COVID-19 can be foundat the [employer] website:[email or web address]. ID Date Data Source [id number] 03/28/2021 02:51:00 PM EDT [facility] Name Value Range Interpretation Code Description Data Huma rce(s) Supporting Document(s) SARS-COV-2 RNA RESP QL OC+PROBE Not detected [facility] This lab was ordered by [facility] and reported by [employer] [place]. ID Date Data Source [id number] 02/12/2021 10:50:00 AM EDT [facility]) Name Value Range Interpretation Code Description Data Huma rce(s) Supporting Document(s) Hemoglobin A1c/Hemoglobin.total in Blood 5.7 % Hemoglobin a1C CASSEL ([facility]) estimated average glucose 117 mg/dL 60-110 Above high norm al Estimated Average Glucose CASSEL ([facility]) ID Date Data Source [id number] 02/12/2021 10:50:00 AM EDT [facility]) Name Value Range Interpretation Code Description Data Huma rce(s) Supporting Document(s) thyroid stimulating hormone 1.980 uIU/mL 0.358-3.740 Thyroid Stimulating Hormone [facility]) ID Date Data Source [id number] 02/12/2021 10:50:00 AM EDT [facility]) Name Value Range Interpretation Code Description Data Huma rce(s) Supporting Document(s) prostatic specific Ag monitor 0.30 NG/mL < 4.00 Prosta tic Specific Ag Monitor CASSEL ([facility]) ID Date Data Source [id number] 02/12/2021 10:50:00 AM EDT [facility]) Name Value Range Interpretation Code Description Data Huma rce(s) Supporting Document(s) testosterone 536 NG/dL [phone] Testosterone CASSEL ([facility]) ID Date Data Source [id number] 02/12/2021 10:50:00 AM EDT [facility]) Name Value Range Interpretation Code Description Data Huma rce(s) Supporting Document(s) creatinine for GFR 1.11 mg/dL 0.70-1.30 Creatinine for GF R CASSEL ([facility]) blood urea nitrogen 13 mg/dL 7-18 Blood Urea Nitro gen CASSEL ([facility]) glucose, fasting 94 mg/dL 70-100 Glucose, Fasting AT [facility]) glomerular filtration rate > 60.0 >56 Glomerula r Filtration Rate ALEX ([facility]) potassium serum 4.3 mEq/L 3.5-5.1 Potassium Serum ATHE ([facility]) chloride level 101 mEq/L 98-107 Chloride Level ALEX ([facility]) carbon dioxide level 28 mEq/L 21-32 Carbon Dioxide Level ALEX ([facility]) sodium level 135 mEq/L 136-145 Below low normal Sodium Level ATHE NA ([facility]) calcium level 8.8 mg/dL 8.5-10.1 Calcium Level ALEX ( [facility]) anion gap 6 mEq/L 8-16 Below low normal Anion Gap ALEX ( [facility]) AST/SGOT 20 U/L 7-37 AST/SGOT ALEX ([facility]) alkaline phosphatase 114 U/L 45-117 Alkaline Phosph atase ALEX ([facility]) ALT/SGPT 18 U/L 12-78 ALT/SGPT ALEX ([facility]) albumin/globulin ratio Albumin/globu karlee Ratio ALEX ([facility]) bilirubin,total 0.3 mg/dL 0.2-1.0 Bilirubin,total ATHE ([facility]) total protein 7.9 gm/dL 6.4-8.2 Total Protein ALEX ( [facility]) albumin 3.6 gm/dL 3.2-5.2 Albumin ALEX ([facility]) ID Date Data Source [id number] 02/12/2021 10:50:00 AM EDT ALEX ([facility]) Name Value Range Interpretation Code Description Data Huma rce(s) Supporting Document(s) white blood count 9.2 10 4.0-10.0 White Blood Count ALEX ([facility]) red blood count 5.60 10 4.30-6.10 Red Blood Count ATHE ([facility]) hemoglobin 13.4 g/dL 13.5-17.5 Below low normal Hemoglobin ALEX ( [facility]) mean corpuscular hemoglobin 23.9 pg 27.0-33.0 Below low nor mal Mean Corpuscular Hemoglobin ALEX ([facility]) mean corpuscular volume 79.8 fL 80.0-96.0 Below low normal Mean Corpuscular Volume ALEX ([facility]) hematocrit 44.7 % 42.0-52.0 Hematocrit ALEX ([facility]) neutrophils % 62.2 % 36.0-66.0 Neutrophils % ALEX ( [facility]) red cell distribution width 15.3 % 11.5-14.5 Above high no rmal Red Cell Distribution Width ALEX ([facility]) platelet count, automated 298 10 150-450 Platelet C ount, Automated ALEX ([facility]) mean corpuscular HGB conc 30.0 g/dL 32.0-36.5 Below low tino l Mean Corpuscular HGB Conc ALEX ([facility]) mono % 8.8 % 2.0-8.0 Above high normal Terrell % ALEX ([facility]) eos % 1.0 % 0.0-3.0 Eos % ALEX ([facility]) baso % 0.3 % 0.0-1.0 Baso % ALEX ([facility]) lymph % 27.4 % 24.0-44.0 Lymph % ALEX ([facility]) neutrophils # 5.7 10 1.5-8.5 Neutrophils # CASSEL ( [facility]) immature granulocyte % 0.3 % 0-3.0 Immature Gran ulocyte % ALEX ([facility]) lymph # 2.5 10 1.5-5.0 Lymph # ALEX ([facility]) nucleated red blood cell % 0.0 % 0-0 Nucleated Red Blood Cell % ALEX ([facility]) eos # 0.1 10 0.0-0.5 Eos # ALEX ([facility]) baso # 0.0 10 0.0-0.2 Baso # ALEX ([facility]) mono # 0.8 10 0.0-0.8 Terrell # ALEX ([facility]) ID Date Data Source [id number] 02/12/2021 10:50:00 AM EDT CASSEL ([facility]) Name Value Range Interpretation Code Description Data Huma rce(s) Supporting Document(s) estimated average glucose 117 mg/dL 60-110 Above high norm al Estimated Average Glucose CASSEL ([facility]) Hemoglobin A1c/Hemoglobin.total in Blood 5.7 % Hemoglobin a1C CASSEL ([facility]) ID Date Data Source [id number] 02/12/2021 10:50:00 AM EDT CASSEL ([facility]) Name Value Range Interpretation Code Description Data Huma rce(s) Supporting Document(s) thyroid stimulating hormone 1.980 uIU/mL 0.358-3.740 Thyroid Stimulating Hormone CASSEL ([facility]) ID Date Data Source [id number] 02/12/2021 10:50:00 AM EDT CASSEL ([facility]) Name Value Range Interpretation Code Description Data Huma rce(s) Supporting Document(s) prostatic specific Ag monitor 0.30 NG/mL < 4.00 Prosta tic Specific Ag Monitor CASSEL ([facility]) ID Date Data Source [id number] 02/12/2021 10:50:00 AM EDT [facility]) Name Value Range Interpretation Code Description Data Huma rce(s) Supporting Document(s) testosterone 536 NG/dL [phone] Testosterone ALEX (No [facility]) ID Date Data Source [id number] 02/12/2021 10:50:00 AM EDT [facility]) Name Value Range Interpretation Code Description Data Huma rce(s) Supporting Document(s) glomerular filtration rate > 60.0 >56 Glomerula r Filtration Rate CASSEL ([facility]) creatinine for GFR 1.11 mg/dL 0.70-1.30 Creatinine for GF R ALEX ([facility]) glucose, fasting 94 mg/dL 70-100 Glucose, Fasting AT ARASH ([facility]) blood urea nitrogen 13 mg/dL 7-18 Blood Urea Nitro gen ALEX ([facility]) sodium level 135 mEq/L 136-145 Below low normal Sodium Level ATHE NA ([facility]) chloride level 101 mEq/L 98-107 Chloride Level ALEX ([facility]) carbon dioxide level 28 mEq/L 21-32 Carbon Dioxide Level ALEX ([facility]) potassium serum 4.3 mEq/L 3.5-5.1 Potassium Serum ATHE NA ([facility]) AST/SGOT 20 U/L 7-37 AST/SGOT ALEX ([facility]) calcium level 8.8 mg/dL 8.5-10.1 Calcium Level ALEX ( [facility]) alkaline phosphatase 114 U/L 45-117 Alkaline Phosph atase ALEX ([facility]) ALT/SGPT 18 U/L 12-78 ALT/SGPT ALEX ([facility]) anion gap 6 mEq/L 8-16 Below low normal Anion Gap ALEX ( [facility]) albumin 3.6 gm/dL 3.2-5.2 Albumin ALEX ([facility]) albumin/globulin ratio Albumin/globu karlee Ratio ALEX ([facility]) total protein 7.9 gm/dL 6.4-8.2 Total Protein ALEX ( [facility]) bilirubin,total 0.3 mg/dL 0.2-1.0 Bilirubin,total ATHE ([facility]) ID Date Data Source [id number] 02/12/2021 10:50:00 AM EDT CASSEL ([facility]) Name Value Range Interpretation Code Description Data Huma rce(s) Supporting Document(s) white blood count 9.2 10 4.0-10.0 White Blood Count ALEX ([facility]) red blood count 5.60 10 4.30-6.10 Red Blood Count ATHE ([facility]) mean corpuscular hemoglobin 23.9 pg 27.0-33.0 Below low nor mal Mean Corpuscular Hemoglobin ALEX ([facility]) mean corpuscular volume 79.8 fL 80.0-96.0 Below low normal Mean Corpuscular Volume ALEX ([facility]) hematocrit 44.7 % 42.0-52.0 Hematocrit ALEX ([facility]) hemoglobin 13.4 g/dL 13.5-17.5 Below low normal Hemoglobin ALEX ( [facility]) neutrophils % 62.2 % 36.0-66.0 Neutrophils % ALEX ( [facility]) mean corpuscular HGB conc 30.0 g/dL 32.0-36.5 Below low tino l Mean Corpuscular HGB Conc ALEX ([facility]) red cell distribution width 15.3 % 11.5-14.5 Above high no rmal Red Cell Distribution Width ALEX ([facility]) platelet count, automated 298 10 150-450 Platelet C ount, Automated ALEX ([facility]) eos % 1.0 % 0.0-3.0 Eos % ALEX ([facility]) lymph % 27.4 % 24.0-44.0 Lymph % ALEX ([facility]) mono % 8.8 % 2.0-8.0 Above high normal Terrell % ALEX ([facility]) neutrophils # 5.7 10 1.5-8.5 Neutrophils # ALEX ( [facility]) baso % 0.3 % 0.0-1.0 Baso % ALEX ([facility]) nucleated red blood cell % 0.0 % 0-0 Nucleated Red Blood Cell % ALEX ([facility]) immature granulocyte % 0.3 % 0-3.0 Immature Gran ulocyte % ALEX ([facility]) mono # 0.8 10 0.0-0.8 Terrell # ALEX ([facility]) eos # 0.1 10 0.0-0.5 Eos # ALEX ([facility]) baso # 0.0 10 0.0-0.2 Baso # ALEX ([facility]) lymph # 2.5 10 1.5-5.0 Lymph # ALEX ([facility]) ID Date Data Source [id number] 02/12/2021 10:50:00 AM EDT CASSEL ([facility]) Name Value Range Interpretation Code Description Data Huma rce(s) Supporting Document(s) estimated average glucose 117 mg/dL 60-110 Above high norm al Estimated Average Glucose CASSEL ([facility]) Hemoglobin A1c/Hemoglobin.total in Blood 5.7 % Hemoglobin a1C CASSEL ([facility]) ID Date Data Source [id number] 02/12/2021 10:50:00 AM EDT [facility]) Name Value Range Interpretation Code Description Data Huma rce(s) Supporting Document(s) thyroid stimulating hormone 1.980 uIU/mL 0.358-3.740 Thyroid Stimulating Hormone CASSEL ([facility]) ID Date Data Source [id number] 02/12/2021 10:50:00 AM EDT [facility]) Name Value Range Interpretation Code Description Data Huma rce(s) Supporting Document(s) prostatic specific Ag monitor 0.30 NG/mL < 4.00 Prosta tic Specific Ag Monitor CASSEL ([facility]) ID Date Data Source [id number] 02/12/2021 10:50:00 AM EDT [facility]) Name Value Range Interpretation Code Description Data Huma rce(s) Supporting Document(s) testosterone 536 NG/dL [phone] Testosterone ALEX (No [facility]) ID Date Data Source [id number] 02/12/2021 10:50:00 AM EDT [facility]) Name Value Range Interpretation Code Description Data Huma rce(s) Supporting Document(s) blood urea nitrogen 13 mg/dL 7-18 Blood Urea Nitro gen CASSEL ([facility]) creatinine for GFR 1.11 mg/dL 0.70-1.30 Creatinine for GF R ALEX ([facility]) glucose, fasting 94 mg/dL 70-100 Glucose, Fasting AT ARASH ([facility]) glomerular filtration rate > 60.0 >56 Glomerula r Filtration Rate ALEX ([facility]) chloride level 101 mEq/L 98-107 Chloride Level ALEX ([facility]) potassium serum 4.3 mEq/L 3.5-5.1 Potassium Serum ATHE NA ([facility]) sodium level 135 mEq/L 136-145 Below low normal Sodium Level ATHE NA ([facility]) AST/SGOT 20 U/L 7-37 AST/SGOT ALEX ([facility]) carbon dioxide level 28 mEq/L 21-32 Carbon Dioxide Level ALEX ([facility]) calcium level 8.8 mg/dL 8.5-10.1 Calcium Level ALEX ( [facility]) anion gap 6 mEq/L 8-16 Below low normal Anion Gap ALEX ( [facility]) alkaline phosphatase 114 U/L 45-117 Alkaline Phosph atase ALEX ([facility]) ALT/SGPT 18 U/L 12-78 ALT/SGPT ALEX ([facility]) total protein 7.9 gm/dL 6.4-8.2 Total Protein ALEX ( [facility]) bilirubin,total 0.3 mg/dL 0.2-1.0 Bilirubin,total ATHE ([facility]) albumin 3.6 gm/dL 3.2-5.2 Albumin ALEX ([facility]) albumin/globulin ratio Albumin/globu karlee Ratio ALEX ([facility]) ID Date Data Source [id number] 02/12/2021 10:50:00 AM EDT CASSEL ([facility]) Name Value Range Interpretation Code Description Data Huma rce(s) Supporting Document(s) hemoglobin 13.4 g/dL 13.5-17.5 Below low normal Hemoglobin ALEX ( [facility]) white blood count 9.2 10 4.0-10.0 White Blood Count ALEX ([facility]) red blood count 5.60 10 4.30-6.10 Red Blood Count ATHE NA ([facility]) mean corpuscular volume 79.8 fL 80.0-96.0 Below low normal Mean Corpuscular Volume ALEX ([facility]) mean corpuscular hemoglobin 23.9 pg 27.0-33.0 Below low nor mal Mean Corpuscular Hemoglobin ALEX ([facility]) hematocrit 44.7 % 42.0-52.0 Hematocrit ALEX ([facility]) mean corpuscular HGB conc 30.0 g/dL 32.0-36.5 Below low tino l Mean Corpuscular HGB Conc ALEX ([facility]) neutrophils % 62.2 % 36.0-66.0 Neutrophils % ALEX ( [facility]) red cell distribution width 15.3 % 11.5-14.5 Above high no rmal Red Cell Distribution Width ALEX ([facility]) platelet count, automated 298 10 150-450 Platelet C ount, Automated ALEX ([facility]) eos % 1.0 % 0.0-3.0 Eos % ALEX ([facility]) mono % 8.8 % 2.0-8.0 Above high normal Terrell % ALEX ([facility]) lymph % 27.4 % 24.0-44.0 Lymph % ALEX ([facility]) baso % 0.3 % 0.0-1.0 Baso % ALEX ([facility]) nucleated red blood cell % 0.0 % 0-0 Nucleated Red Blood Cell % ALEX ([facility]) neutrophils # 5.7 10 1.5-8.5 Neutrophils # ALEX ( [facility]) lymph # 2.5 10 1.5-5.0 Lymph # CASSEL ([facility]) immature granulocyte % 0.3 % 0-3.0 Immature Gran ulocyte % ALEX ([facility]) baso # 0.0 10 0.0-0.2 Baso # ALEX ([facility]) eos # 0.1 10 0.0-0.5 Eos # ALEX ([facility]) mono # 0.8 10 0.0-0.8 Terrell # ALEX ([facility]) ID Date Data Source [id number] 02/12/2021 10:50:00 AM EDT CASSEL ([facility]) Name Value Range Interpretation Code Description Data Huma rce(s) Supporting Document(s) estimated average glucose 117 mg/dL 60-110 Above high norm al Estimated Average Glucose CASSEL ([facility]) Hemoglobin A1c/Hemoglobin.total in Blood 5.7 % Hemoglobin a1C CASSEL ([facility]) ID Date Data Source [id number] 02/12/2021 10:50:00 AM EDT [facility]) Name Value Range Interpretation Code Description Data Huma rce(s) Supporting Document(s) thyroid stimulating hormone 1.980 uIU/mL 0.358-3.740 Thyroid Stimulating Hormone CASSEL ([facility]) ID Date Data Source [id number] 02/12/2021 10:50:00 AM EDT [facility]) Name Value Range Interpretation Code Description Data Huma rce(s) Supporting Document(s) prostatic specific Ag monitor 0.30 NG/mL < 4.00 Prosta tic Specific Ag Monitor [facility]) ID Date Data Source [id number] 02/12/2021 10:50:00 AM EDT CASSEL ([facility]) Name Value Range Interpretation Code Description Data Huma rce(s) Supporting Document(s) testosterone 536 NG/dL [phone] Testosterone ALEX ([facility]) ID Date Data Source [id number] 02/12/2021 10:50:00 AM EDT [facility]) Name Value Range Interpretation Code Description Data Huma rce(s) Supporting Document(s) creatinine for GFR 1.11 mg/dL 0.70-1.30 Creatinine for GF R ALEX ([facility]) blood urea nitrogen 13 mg/dL 7-18 Blood Urea Nitro gen ALEX ([facility]) glucose, fasting 94 mg/dL 70-100 Glucose, Fasting AT ARASH ([facility]) chloride level 101 mEq/L 98-107 Chloride Level ALEX ([facility]) potassium serum 4.3 mEq/L 3.5-5.1 Potassium Serum ATHE NA ([facility]) sodium level 135 mEq/L 136-145 Below low normal Sodium Level ATHE NA ([facility]) glomerular filtration rate > 60.0 >56 Glomerula r Filtration Rate ALEX ([facility]) ALT/SGPT 18 U/L 12-78 ALT/SGPT ALEX ([facility]) anion gap 6 mEq/L 8-16 Below low normal Anion Gap ALEX ( [facility]) calcium level 8.8 mg/dL 8.5-10.1 Calcium Level ALEX ( [facility]) carbon dioxide level 28 mEq/L 21-32 Carbon Dioxide Level ALEX ([facility]) AST/SGOT 20 U/L 7-37 AST/SGOT ALEX ([facility]) alkaline phosphatase 114 U/L 45-117 Alkaline Phosph atase ALEX ([facility]) total protein 7.9 gm/dL 6.4-8.2 Total Protein ALEX ( [facility]) albumin 3.6 gm/dL 3.2-5.2 Albumin ALEX ([facility]) bilirubin,total 0.3 mg/dL 0.2-1.0 Bilirubin,total ATHE ([facility]) albumin/globulin ratio Albumin/globu karlee Ratio ALEX ([facility]) ID Date Data Source [id number] 02/12/2021 10:50:00 AM EDT ALEX ([facility]) Name Value Range Interpretation Code Description Data Huma rce(s) Supporting Document(s) red blood count 5.60 10 4.30-6.10 Red Blood Count ATHE ([facility]) white blood count 9.2 10 4.0-10.0 White Blood Count ALEX ([facility]) hemoglobin 13.4 g/dL 13.5-17.5 Below low normal Hemoglobin ALEX ( [facility]) hematocrit 44.7 % 42.0-52.0 Hematocrit ALEX ([facility]) mean corpuscular volume 79.8 fL 80.0-96.0 Below low normal Mean Corpuscular Volume ALEX ([facility]) red cell distribution width 15.3 % 11.5-14.5 Above high no rmal Red Cell Distribution Width ALEX ([facility]) mean corpuscular HGB conc 30.0 g/dL 32.0-36.5 Below low tino l Mean Corpuscular HGB Conc ALEX ([facility]) mean corpuscular hemoglobin 23.9 pg 27.0-33.0 Below low nor mal Mean Corpuscular Hemoglobin ALEX ([facility]) platelet count, automated 298 10 150-450 Platelet C ount, Automated ALEX ([facility]) eos % 1.0 % 0.0-3.0 Eos % ALEX ([facility]) mono % 8.8 % 2.0-8.0 Above high normal Terrell % CASSEL ([facility]) neutrophils % 62.2 % 36.0-66.0 Neutrophils % CASSEL ( [facility]) lymph % 27.4 % 24.0-44.0 Lymph % CASSEL ([facility]) nucleated red blood cell % 0.0 % 0-0 Nucleated Red Blood Cell % CASSEL ([facility]) immature granulocyte % 0.3 % 0-3.0 Immature Gran ulocyte % ALEX ([facility]) baso % 0.3 % 0.0-1.0 Baso % CASSEL ([facility]) neutrophils # 5.7 10 1.5-8.5 Neutrophils # CASSEL ( [facility]) lymph # 2.5 10 1.5-5.0 Lymph # ALEX ([facility]) eos # 0.1 10 0.0-0.5 Eos # ALEX ([facility]) mono # 0.8 10 0.0-0.8 Terrell # ALEX ([facility]) baso # 0.0 10 0.0-0.2 Baso # ALEX ([facility]) ID Date Data Source [id number] 02/12/2021 10:50:00 AM EDT CASSEL ([facility]) Name Value Range Interpretation Code Description Data Huma rce(s) Supporting Document(s) estimated average glucose 117 mg/dL 60-110 Above high norm al Estimated Average Glucose CASSEL ([facility]) Hemoglobin A1c/Hemoglobin.total in Blood 5.7 % Hemoglobin a1C CASSEL ([facility]) ID Date Data Source [id number] 02/12/2021 10:50:00 AM EDT CASSEL ([facility]) Name Value Range Interpretation Code Description Data Huma rce(s) Supporting Document(s) thyroid stimulating hormone 1.980 uIU/mL 0.358-3.740 Thyroid Stimulating Hormone CASSEL ([facility]) ID Date Data Source [id number] 02/12/2021 10:50:00 AM EDT CASSEL ([facility]) Name Value Range Interpretation Code Description Data Huma rce(s) Supporting Document(s) prostatic specific Ag monitor 0.30 NG/mL < 4.00 Prosta tic Specific Ag Monitor CASSEL ([facility]) ID Date Data Source [id number] 02/12/2021 10:50:00 AM EDT CASSEL ([facility]) Name Value Range Interpretation Code Description Data Huma rce(s) Supporting Document(s) testosterone 536 NG/dL [id number] Testosterone ALEX ([facility]) ID Date Data Source [id number] 02/12/2021 10:50:00 AM EDT [facility]) Name Value Range Interpretation Code Description Data Huma rce(s) Supporting Document(s) glucose, fasting 94 mg/dL 70-100 Glucose, Fasting AT ARASH ([facility]) glomerular filtration rate > 60.0 >56 Glomerula r Filtration Rate ALEX ([facility]) creatinine for GFR 1.11 mg/dL 0.70-1.30 Creatinine for GF R ALEX ([facility]) blood urea nitrogen 13 mg/dL 7-18 Blood Urea Nitro gen ALEX ([facility]) potassium serum 4.3 mEq/L 3.5-5.1 Potassium Serum ATHE NA ([facility]) chloride level 101 mEq/L 98-107 Chloride Level ALEX ([facility]) carbon dioxide level 28 mEq/L 21-32 Carbon Dioxide Level ALEX ([facility]) sodium level 135 mEq/L 136-145 Below low normal Sodium Level ATHE ([facility]) calcium level 8.8 mg/dL 8.5-10.1 Calcium Level ALEX ( [facility]) anion gap 6 mEq/L 8-16 Below low normal Anion Gap ALEX ( [facility]) ALT/SGPT 18 U/L 12-78 ALT/SGPT ALEX ([facility]) AST/SGOT 20 U/L 7-37 AST/SGOT ALEX ([facility]) alkaline phosphatase 114 U/L 45-117 Alkaline Phosph atase ALEX ([facility]) albumin/globulin ratio Albumin/globu karlee Ratio ALEX ([facility]) total protein 7.9 gm/dL 6.4-8.2 Total Protein ALEX ( [facility]) bilirubin,total 0.3 mg/dL 0.2-1.0 Bilirubin,total ATHE ([facility]) albumin 3.6 gm/dL 3.2-5.2 Albumin ALEX ([facility]) ID Date Data Source [id number] 02/12/2021 10:50:00 AM EDT CASSEL ([facility]) Name Value Range Interpretation Code Description Data Huma rce(s) Supporting Document(s) white blood count 9.2 10 4.0-10.0 White Blood Count ALEX ([facility]) hemoglobin 13.4 g/dL 13.5-17.5 Below low normal Hemoglobin ALEX ( [facility]) red blood count 5.60 10 4.30-6.10 Red Blood Count ATHE NA ([facility]) mean corpuscular hemoglobin 23.9 pg 27.0-33.0 Below low nor mal Mean Corpuscular Hemoglobin ALEX ([facility]) hematocrit 44.7 % 42.0-52.0 Hematocrit ALEX ([facility]) mean corpuscular volume 79.8 fL 80.0-96.0 Below low normal Mean Corpuscular Volume ALEX ([facility]) mean corpuscular HGB conc 30.0 g/dL 32.0-36.5 Below low tino l Mean Corpuscular HGB Conc ALEX ([facility]) red cell distribution width 15.3 % 11.5-14.5 Above high no rmal Red Cell Distribution Width ALEX ([facility]) lymph % 27.4 % 24.0-44.0 Lymph % ALEX ([facility]) platelet count, automated 298 10 150-450 Platelet C ount, Automated ALEX ([facility]) neutrophils % 62.2 % 36.0-66.0 Neutrophils % ALEX ( [facility]) mono % 8.8 % 2.0-8.0 Above high normal Terrell % ALEX ([facility]) eos % 1.0 % 0.0-3.0 Eos % ALEX ([facility]) baso % 0.3 % 0.0-1.0 Baso % ALEX ([facility]) lymph # 2.5 10 1.5-5.0 Lymph # ALEX ([facility]) neutrophils # 5.7 10 1.5-8.5 Neutrophils # CASSEL ( [facility]) nucleated red blood cell % 0.0 % 0-0 Nucleated Red Blood Cell % ALEX ([facility]) immature granulocyte % 0.3 % 0-3.0 Immature Gran ulocyte % ALEX ([facility]) baso # 0.0 10 0.0-0.2 Baso # ALEX ([facility]) eos # 0.1 10 0.0-0.5 Eos # ALEX ([facility]) mono # 0.8 10 0.0-0.8 Terrell # ALEX ([facility]) ID Date Data Source [id number] 02/12/2021 10:50:00 AM EDT ALEX ([facility]) Name Value Range Interpretation Code Description Data Huma rce(s) Supporting Document(s) estimated average glucose 117 mg/dL 60-110 Above high norm al Estimated Average Glucose CASSEL ([facility]) Hemoglobin A1c/Hemoglobin.total in Blood 5.7 % Hemoglobin a1C CASSEL ([facility]) ID Date Data Source [id number] 02/12/2021 10:50:00 AM EDT CASSEL ([facility]) Name Value Range Interpretation Code Description Data Huma rce(s) Supporting Document(s) thyroid stimulating hormone 1.980 uIU/mL 0.358-3.740 Thyroid Stimulating Hormone CASSEL ([facility]) ID Date Data Source [id number] 02/12/2021 10:50:00 AM EDT CASSEL ([facility]) Name Value Range Interpretation Code Description Data Huma rce(s) Supporting Document(s) prostatic specific Ag monitor 0.30 NG/mL < 4.00 Prosta tic Specific Ag Monitor CASSEL ([facility]) ID Date Data Source [id number] 02/12/2021 10:50:00 AM EDT CASSEL ([facility]) Name Value Range Interpretation Code Description Data Huma rce(s) Supporting Document(s) testosterone 536 NG/dL [id number] Testosterone ALEX ([facility]) ID Date Data Source [id number] 02/12/2021 10:50:00 AM EDT ALEX ([facility]) Name Value Range Interpretation Code Description Data Huma rce(s) Supporting Document(s) glucose, fasting 94 mg/dL 70-100 Glucose, Fasting AT ARASH ([facility]) glomerular filtration rate > 60.0 >56 Glomerula r Filtration Rate ALEX ([facility]) blood urea nitrogen 13 mg/dL 7-18 Blood Urea Nitro gen ALEX ([facility]) sodium level 135 mEq/L 136-145 Below low normal Sodium Level ATHE NA ([facility]) creatinine for GFR 1.11 mg/dL 0.70-1.30 Creatinine for GF R ALEX ([facility]) carbon dioxide level 28 mEq/L 21-32 Carbon Dioxide Level ALEX ([facility]) chloride level 101 mEq/L 98-107 Chloride Level ALEX ([facility]) potassium serum 4.3 mEq/L 3.5-5.1 Potassium Serum ATHE NA ([facility]) anion gap 6 mEq/L 8-16 Below low normal Anion Gap ALEX ( [facility]) calcium level 8.8 mg/dL 8.5-10.1 Calcium Level ALEX ( [facility]) AST/SGOT 20 U/L 7-37 AST/SGOT ALEX ([facility]) ALT/SGPT 18 U/L 12-78 ALT/SGPT ALEX ([facility]) alkaline phosphatase 114 U/L 45-117 Alkaline Phosph atase ALEX ([facility]) total protein 7.9 gm/dL 6.4-8.2 Total Protein ALEX ( [facility]) albumin 3.6 gm/dL 3.2-5.2 Albumin ALEX ([facility]) albumin/globulin ratio Albumin/globu karlee Ratio ALEX ([facility]) bilirubin,total 0.3 mg/dL 0.2-1.0 Bilirubin,total ATHE ([facility]) ID Date Data Source [id number] 02/12/2021 10:50:00 AM EDT CASSEL ([facility]) Name Value Range Interpretation Code Description Data Huma rce(s) Supporting Document(s) white blood count 9.2 10 4.0-10.0 White Blood Count ALEX ([facility]) hemoglobin 13.4 g/dL 13.5-17.5 Below low normal Hemoglobin ALEX ( [facility]) hematocrit 44.7 % 42.0-52.0 Hematocrit ALEX ([facility]) red blood count 5.60 10 4.30-6.10 Red Blood Count ATHE NA ([facility]) red cell distribution width 15.3 % 11.5-14.5 Above high no rmal Red Cell Distribution Width ALEX ([facility]) mean corpuscular hemoglobin 23.9 pg 27.0-33.0 Below low nor mal Mean Corpuscular Hemoglobin ALEX ([facility]) mean corpuscular volume 79.8 fL 80.0-96.0 Below low normal Mean Corpuscular Volume ALEX ([facility]) mean corpuscular HGB conc 30.0 g/dL 32.0-36.5 Below low tino l Mean Corpuscular HGB Conc ALEX ([facility]) neutrophils % 62.2 % 36.0-66.0 Neutrophils % ALEX ( [facility]) platelet count, automated 298 10 150-450 Platelet C ount, Automated ALEX ([facility]) lymph % 27.4 % 24.0-44.0 Lymph % ALEX ([facility]) immature granulocyte % 0.3 % 0-3.0 Immature Gran ulocyte % ALEX ([facility]) mono % 8.8 % 2.0-8.0 Above high normal Terrell % ALEX ([facility]) baso % 0.3 % 0.0-1.0 Baso % ALEX ([facility]) eos % 1.0 % 0.0-3.0 Eos % ALEX ([facility]) mono # 0.8 10 0.0-0.8 Terrell # ALEX ([facility]) nucleated red blood cell % 0.0 % 0-0 Nucleated Red Blood Cell % ALEX ([facility]) neutrophils # 5.7 10 1.5-8.5 Neutrophils # ALEX ( [facility]) lymph # 2.5 10 1.5-5.0 Lymph # ALEX ([facility]) eos # 0.1 10 0.0-0.5 Eos # ALEX ([facility]) baso # 0.0 10 0.0-0.2 Baso # LAEX ([facility]) ID Date Data Source [id number] 02/12/2021 10:50:00 AM EDT CASSEL ([facility]) Name Value Range Interpretation Code Description Data Huma rce(s) Supporting Document(s) prostatic specific Ag monitor 0.30 NG/mL < 4.00 Prosta tic Specific Ag Monitor CASSEL ([facility]) ID Date Data Source [id number] 02/12/2021 10:50:00 AM EDT CASSEL ([facility]) Name Value Range Interpretation Code Description Data Huma rce(s) Supporting Document(s) testosterone 536 NG/dL [id number] Testosterone ALEX (No [facility]) ID Date Data Source [id number] 02/12/2021 10:50:00 AM EDT [facility]) Name Value Range Interpretation Code Description Data Huma rce(s) Supporting Document(s) glucose, fasting 94 mg/dL 70-100 Glucose, Fasting AT [facility]) blood urea nitrogen 13 mg/dL 7-18 Blood Urea Nitro gen CASSEL ([facility]) sodium level 135 mEq/L 136-145 Below low normal Sodium Level ATHE NA ([facility]) potassium serum 4.3 mEq/L 3.5-5.1 Potassium Serum ATHE NA ([facility]) glomerular filtration rate > 60.0 >56 Glomerula r Filtration Rate CASSEL ([facility]) creatinine for GFR 1.11 mg/dL 0.70-1.30 Creatinine for GF R CASSEL ([facility]) carbon dioxide level 28 mEq/L 21-32 Carbon Dioxide Level ALEX ([facility]) calcium level 8.8 mg/dL 8.5-10.1 Calcium Level ALEX ( [facility]) AST/SGOT 20 U/L 7-37 AST/SGOT ALEX ([facility]) chloride level 101 mEq/L 98-107 Chloride Level ALEX ([facility]) anion gap 6 mEq/L 8-16 Below low normal Anion Gap ALEX ( [facility]) total protein 7.9 gm/dL 6.4-8.2 Total Protein ALEX ( [facility]) alkaline phosphatase 114 U/L 45-117 Alkaline Phosph atase ALEX ([facility]) albumin 3.6 gm/dL 3.2-5.2 Albumin ALEX ([facility]) ALT/SGPT 18 U/L 12-78 ALT/SGPT ALEX ([facility]) bilirubin,total 0.3 mg/dL 0.2-1.0 Bilirubin,total ATHE ([facility]) albumin/globulin ratio Albumin/globu karlee Ratio ALEX ([facility]) ID Date Data Source [id number] 02/12/2021 10:50:00 AM EDT ALEX ([facility]) Name Value Range Interpretation Code Description Data Huma rce(s) Supporting Document(s) white blood count 9.2 10 4.0-10.0 White Blood Count ALEX ([facility]) red blood count 5.60 10 4.30-6.10 Red Blood Count ATHE ([facility]) mean corpuscular volume 79.8 fL 80.0-96.0 Below low normal Mean Corpuscular Volume ALEX ([facility]) hematocrit 44.7 % 42.0-52.0 Hematocrit ALEX ([facility]) hemoglobin 13.4 g/dL 13.5-17.5 Below low normal Hemoglobin ALEX ( [facility]) red cell distribution width 15.3 % 11.5-14.5 Above high no rmal Red Cell Distribution Width ALEX ([facility]) platelet count, automated 298 10 150-450 Platelet C ount, Automated ALEX ([facility]) mean corpuscular HGB conc 30.0 g/dL 32.0-36.5 Below low tino l Mean Corpuscular HGB Conc ALEX ([facility]) mean corpuscular hemoglobin 23.9 pg 27.0-33.0 Below low nor mal Mean Corpuscular Hemoglobin ALEX ([facility]) mono % 8.8 % 2.0-8.0 Above high normal Terrell % ALEX ([facility]) eos % 1.0 % 0.0-3.0 Eos % ALEX ([facility]) lymph % 27.4 % 24.0-44.0 Lymph % CASSEL ([facility]) neutrophils % 62.2 % 36.0-66.0 Neutrophils % CASSEL ( [facility]) nucleated red blood cell % 0.0 % 0-0 Nucleated Red Blood Cell % CASSEL ([facility]) immature granulocyte % 0.3 % 0-3.0 Immature Gran ulocyte % CASSEL ([facility]) baso % 0.3 % 0.0-1.0 Baso % ALEX ([facility]) neutrophils # 5.7 10 1.5-8.5 Neutrophils # ALEX ( [facility]) mono # 0.8 10 0.0-0.8 Terrell # ALEX ([facility]) lymph # 2.5 10 1.5-5.0 Lymph # ALEX ([facility]) baso # 0.0 10 0.0-0.2 Baso # ALEX ([facility]) eos # 0.1 10 0.0-0.5 Eos # ALEX ([facility]) ID Date Data Source [id number] 02/12/2021 10:50:00 AM EDT CASSEL ([facility]) Name Value Range Interpretation Code Description Data Huma rce(s) Supporting Document(s) Hemoglobin A1c/Hemoglobin.total in Blood 5.7 % Hemoglobin a1C CASSEL ([facility]) estimated average glucose 117 mg/dL 60-110 Above high norm al Estimated Average Glucose CASSEL ([facility]) ID Date Data Source [id number] 02/12/2021 10:50:00 AM EDT [facility]) Name Value Range Interpretation Code Description Data Huma rce(s) Supporting Document(s) thyroid stimulating hormone 1.980 uIU/mL 0.358-3.740 Thyroid Stimulating Hormone CASSEL ([facility]) ID Date Data Source [id number] 02/12/2021 10:50:00 AM EDT [facility]) Name Value Range Interpretation Code Description Data Huma rce(s) Supporting Document(s) prostatic specific Ag monitor 0.30 NG/mL < 4.00 Prosta tic Specific Ag Monitor CASSEL ([facility]) ID Date Data Source [id number] 02/12/2021 10:50:00 AM EDT CASSEL ([facility]) Name Value Range Interpretation Code Description Data Huma rce(s) Supporting Document(s) testosterone 536 NG/dL [phone] Testosterone ALEX (No [facility]) ID Date Data Source [id number] 02/12/2021 10:50:00 AM EDT [facility]) Name Value Range Interpretation Code Description Data Huma rce(s) Supporting Document(s) creatinine for GFR 1.11 mg/dL 0.70-1.30 Creatinine for GF R CASSEL ([facility]) glucose, fasting 94 mg/dL 70-100 Glucose, Fasting AT [facility]) blood urea nitrogen 13 mg/dL 7-18 Blood Urea Nitro gen ALEX ([facility]) sodium level 135 mEq/L 136-145 Below low normal Sodium Level ATHE ([facility]) potassium serum 4.3 mEq/L 3.5-5.1 Potassium Serum ATHE NA ([facility]) glomerular filtration rate > 60.0 >56 Glomerula r Filtration Rate CASSEL ([facility]) anion gap 6 mEq/L 8-16 Below low normal Anion Gap ALEX ( [facility]) carbon dioxide level 28 mEq/L 21-32 Carbon Dioxide Level ALEX ([facility]) calcium level 8.8 mg/dL 8.5-10.1 Calcium Level ALEX ( [facility]) chloride level 101 mEq/L 98-107 Chloride Level ALEX ([facility]) bilirubin,total 0.3 mg/dL 0.2-1.0 Bilirubin,total ATHE NA ([facility]) AST/SGOT 20 U/L 7-37 AST/SGOT ALEX ([facility]) ALT/SGPT 18 U/L 12-78 ALT/SGPT ALEX ([facility]) alkaline phosphatase 114 U/L 45-117 Alkaline Phosph atase ALEX ([facility]) albumin 3.6 gm/dL 3.2-5.2 Albumin ALEX ([facility]) albumin/globulin ratio Albumin/globu karlee Ratio ALEX ([facility]) total protein 7.9 gm/dL 6.4-8.2 Total Protein ALEX ( [facility]) ID Date Data Source [id number] 02/12/2021 10:50:00 AM EDT ALEX ([facility]) Name Value Range Interpretation Code Description Data Huma rce(s) Supporting Document(s) red blood count 5.60 10 4.30-6.10 Red Blood Count ATHE ([facility]) white blood count 9.2 10 4.0-10.0 White Blood Count ALEX ([facility]) hematocrit 44.7 % 42.0-52.0 Hematocrit ALEX ([facility]) mean corpuscular volume 79.8 fL 80.0-96.0 Below low normal Mean Corpuscular Volume ALEX ([facility]) hemoglobin 13.4 g/dL 13.5-17.5 Below low normal Hemoglobin ALEX ( [facility]) mean corpuscular hemoglobin 23.9 pg 27.0-33.0 Below low nor mal Mean Corpuscular Hemoglobin ALEX ([facility]) platelet count, automated 298 10 150-450 Platelet C ount, Automated ALEX ([facility]) mean corpuscular HGB conc 30.0 g/dL 32.0-36.5 Below low tino l Mean Corpuscular HGB Conc ALEX ([facility]) red cell distribution width 15.3 % 11.5-14.5 Above high no rmal Red Cell Distribution Width ALEX ([facility]) neutrophils % 62.2 % 36.0-66.0 Neutrophils % ALEX ( [facility]) mono % 8.8 % 2.0-8.0 Above high normal Terrell % CASSEL ([facility]) lymph % 27.4 % 24.0-44.0 Lymph % CASSEL ([facility]) eos % 1.0 % 0.0-3.0 Eos % CASSEL ([facility]) baso % 0.3 % 0.0-1.0 Baso % CASSEL ([facility]) immature granulocyte % 0.3 % 0-3.0 Immature Gran ulocyte % CASSEL ([facility]) nucleated red blood cell % 0.0 % 0-0 Nucleated Red Blood Cell % CASSEL ([facility]) mono # 0.8 10 0.0-0.8 Terrell # CASSEL ([facility]) neutrophils # 5.7 10 1.5-8.5 Neutrophils # CASSEL ( [facility]) lymph # 2.5 10 1.5-5.0 Lymph # CASSEL ([facility]) baso # 0.0 10 0.0-0.2 Baso # CASSEL ([facility]) eos # 0.1 10 0.0-0.5 Eos # CASSEL ([facility]) ID Date Data Source [id number] 02/12/2021 10:50:00 AM EDT CASSEL ([facility]) Name Value Range Interpretation Code Description Data Huma rce(s) Supporting Document(s) Hemoglobin A1c/Hemoglobin.total in Blood 5.7 % Hemoglobin a1C CASSEL ([facility]) estimated average glucose 117 mg/dL 60-110 Above high norm al Estimated Average Glucose CASSEL ([facility]) ID Date Data Source [id number] 02/12/2021 10:50:00 AM EDT CASSEL ([facility]) Name Value Range Interpretation Code Description Data Huma rce(s) Supporting Document(s) thyroid stimulating hormone 1.980 uIU/mL 0.358-3.740 Thyroid Stimulating Hormone CASSEL ([facility]) ID Date Data Source [id number] 02/12/2021 10:50:00 AM EDT CASSEL ([facility]) Name Value Range Interpretation Code Description Data Huma rce(s) Supporting Document(s) prostatic specific Ag monitor 0.30 NG/mL < 4.00 Prosta tic Specific Ag Monitor CASSEL ([facility]) ID Date Data Source [id number] 02/12/2021 10:50:00 AM EDT CASSEL ([facility]) Name Value Range Interpretation Code Description Data Huma rce(s) Supporting Document(s) testosterone 536 NG/dL [phone] Testosterone ALEX (No [facility]) ID Date Data Source [id number] 02/12/2021 10:50:00 AM EDT CASSEL ([facility]) Name Value Range Interpretation Code Description Data Huma rce(s) Supporting Document(s) blood urea nitrogen 13 mg/dL 7-18 Blood Urea Nitro gen CASSEL ([facility]) creatinine for GFR 1.11 mg/dL 0.70-1.30 Creatinine for GF R CASSEL ([facility]) glucose, fasting 94 mg/dL 70-100 Glucose, Fasting AT [facility] ([facility]) glomerular filtration rate > 60.0 >56 Glomerula r Filtration Rate CASSEL ([facility]) sodium level 135 mEq/L 136-145 Below low normal Sodium Level ATHE NA ([facility]) potassium serum 4.3 mEq/L 3.5-5.1 Potassium Serum ATHE ([facility]) chloride level 101 mEq/L 98-107 Chloride Level ALEX ([facility]) calcium level 8.8 mg/dL 8.5-10.1 Calcium Level ALEX ( [facility]) carbon dioxide level 28 mEq/L 21-32 Carbon Dioxide Level ALEX ([facility]) anion gap 6 mEq/L 8-16 Below low normal Anion Gap ALEX ( [facility]) AST/SGOT 20 U/L 7-37 AST/SGOT ALEX ([facility]) alkaline phosphatase 114 U/L 45-117 Alkaline Phosph atase ALEX ([facility]) ALT/SGPT 18 U/L 12-78 ALT/SGPT ALEX ([facility]) bilirubin,total 0.3 mg/dL 0.2-1.0 Bilirubin,total ATHE ([facility]) total protein 7.9 gm/dL 6.4-8.2 Total Protein ALEX ( [facility]) albumin 3.6 gm/dL 3.2-5.2 Albumin ALEX ([facility]) albumin/globulin ratio Albumin/globu karlee Ratio ALEX ([facility]) ID Date Data Source [id number] 02/12/2021 10:50:00 AM EDT ALEX ([facility]) Name Value Range Interpretation Code Description Data Huma rce(s) Supporting Document(s) white blood count 9.2 10 4.0-10.0 White Blood Count ALEX ([facility]) red blood count 5.60 10 4.30-6.10 Red Blood Count ATHE ([facility]) hematocrit 44.7 % 42.0-52.0 Hematocrit ALEX ([facility]) hemoglobin 13.4 g/dL 13.5-17.5 Below low normal Hemoglobin ALEX ( [facility]) mean corpuscular volume 79.8 fL 80.0-96.0 Below low normal Mean Corpuscular Volume ALEX ([facility]) mean corpuscular hemoglobin 23.9 pg 27.0-33.0 Below low nor mal Mean Corpuscular Hemoglobin ALEX ([facility]) red cell distribution width 15.3 % 11.5-14.5 Above high no rmal Red Cell Distribution Width ALEX ([facility]) mean corpuscular HGB conc 30.0 g/dL 32.0-36.5 Below low tino l Mean Corpuscular HGB Conc CASSEL ([facility]) mono % 8.8 % 2.0-8.0 Above high normal Terrell % ALEX ([facility]) lymph % 27.4 % 24.0-44.0 Lymph % CASSEL ([facility]) platelet count, automated 298 10 150-450 Platelet C ount, Automated CASSEL ([facility]) neutrophils % 62.2 % 36.0-66.0 Neutrophils % CASSEL ( [facility]) immature granulocyte % 0.3 % 0-3.0 Immature Gran ulocyte % CASSEL ([facility]) baso % 0.3 % 0.0-1.0 Baso % CASSEL ([facility]) eos % 1.0 % 0.0-3.0 Eos % CASSEL ([facility]) nucleated red blood cell % 0.0 % 0-0 Nucleated Red Blood Cell % CASSEL ([facility]) neutrophils # 5.7 10 1.5-8.5 Neutrophils # CASSEL ( [facility]) lymph # 2.5 10 1.5-5.0 Lymph # CASSEL ([facility]) baso # 0.0 10 0.0-0.2 Baso # CASSEL ([facility]) eos # 0.1 10 0.0-0.5 Eos # ALEX ([facility]) mono # 0.8 10 0.0-0.8 Terrell # CASSEL ([facility]) ID Date Data Source [id number] 02/12/2021 10:50:00 AM EDT CASSEL ([facility]) Name Value Range Interpretation Code Description Data Huma rce(s) Supporting Document(s) estimated average glucose 117 mg/dL 60-110 Above high norm al Estimated Average Glucose ALEX ([facility]) Hemoglobin A1c/Hemoglobin.total in Blood 5.7 % Hemoglobin a1C ALEX ([facility]) ID Date Data Source [id number] 02/12/2021 10:50:00 AM EDT [facility]) Name Value Range Interpretation Code Description Data Huma rce(s) Supporting Document(s) thyroid stimulating hormone 1.980 uIU/mL 0.358-3.740 Thyroid Stimulating Hormone CASSEL ([facility]) ID Date Data Source [id number] 02/12/2021 10:50:00 AM EDT [facility]) Name Value Range Interpretation Code Description Data Huma rce(s) Supporting Document(s) prostatic specific Ag monitor 0.30 NG/mL < 4.00 Prosta tic Specific Ag Monitor CASSEL ([facility]) ID Date Data Source [id number] 02/12/2021 10:50:00 AM EDT [facility]) Name Value Range Interpretation Code Description Data Huma rce(s) Supporting Document(s) testosterone 536 NG/dL [phone] Testosterone ALEX (No [facility]) ID Date Data Source [id number] 02/12/2021 10:50:00 AM EDT [facility]) Name Value Range Interpretation Code Description Data Huma rce(s) Supporting Document(s) glucose, fasting 94 mg/dL 70-100 Glucose, Fasting AT [facility]) creatinine for GFR 1.11 mg/dL 0.70-1.30 Creatinine for GF R CASSEL ([facility]) glomerular filtration rate > 60.0 >56 Glomerula r Filtration Rate ALEX ([facility]) blood urea nitrogen 13 mg/dL 7-18 Blood Urea Nitro gen ALEX ([facility]) chloride level 101 mEq/L 98-107 Chloride Level CASSEL ([facility]) sodium level 135 mEq/L 136-145 Below low normal Sodium Level ATHE NA ([facility]) potassium serum 4.3 mEq/L 3.5-5.1 Potassium Serum ATHE ([facility]) carbon dioxide level 28 mEq/L 21-32 Carbon Dioxide Level ALEX ([facility]) calcium level 8.8 mg/dL 8.5-10.1 Calcium Level ALEX ( [facility]) anion gap 6 mEq/L 8-16 Below low normal Anion Gap ALEX ( [facility]) alkaline phosphatase 114 U/L 45-117 Alkaline Phosph atase ALEX ([facility]) AST/SGOT 20 U/L 7-37 AST/SGOT ALEX ([facility]) ALT/SGPT 18 U/L 12-78 ALT/SGPT ALEX ([facility]) bilirubin,total 0.3 mg/dL 0.2-1.0 Bilirubin,total ATHE ([facility]) total protein 7.9 gm/dL 6.4-8.2 Total Protein ALEX ( [facility]) albumin 3.6 gm/dL 3.2-5.2 Albumin ALEX ([facility]) albumin/globulin ratio Albumin/globu karlee Ratio ALEX ([facility]) ID Date Data Source [id number] 02/12/2021 10:50:00 AM EDT ALEX ([facility]) Name Value Range Interpretation Code Description Data Huma rce(s) Supporting Document(s) white blood count 9.2 10 4.0-10.0 White Blood Count ALEX ([facility]) red blood count 5.60 10 4.30-6.10 Red Blood Count ATHE ([facility]) hemoglobin 13.4 g/dL 13.5-17.5 Below low normal Hemoglobin ALEX ( [facility]) hematocrit 44.7 % 42.0-52.0 Hematocrit ALEX ([facility]) red cell distribution width 15.3 % 11.5-14.5 Above high no rmal Red Cell Distribution Width ALEX ([facility]) mean corpuscular volume 79.8 fL 80.0-96.0 Below low normal Mean Corpuscular Volume ALEX ([facility]) mean corpuscular hemoglobin 23.9 pg 27.0-33.0 Below low nor mal Mean Corpuscular Hemoglobin ALEX ([facility]) mean corpuscular HGB conc 30.0 g/dL 32.0-36.5 Below low tino l Mean Corpuscular HGB Conc ALEX ([facility]) platelet count, automated 298 10 150-450 Platelet C ount, Automated ALEX ([facility]) neutrophils % 62.2 % 36.0-66.0 Neutrophils % ALEX ( [facility]) mono % 8.8 % 2.0-8.0 Above high normal Terrell % ALEX ([facility]) eos % 1.0 % 0.0-3.0 Eos % CASSEL ([facility]) lymph % 27.4 % 24.0-44.0 Lymph % CASSEL ([facility]) immature granulocyte % 0.3 % 0-3.0 Immature Gran ulocyte % ALEX ([facility]) baso % 0.3 % 0.0-1.0 Baso % ALEX ([facility]) nucleated red blood cell % 0.0 % 0-0 Nucleated Red Blood Cell % CASSEL ([facility]) neutrophils # 5.7 10 1.5-8.5 Neutrophils # ALEX ( [facility]) eos # 0.1 10 0.0-0.5 Eos # ALEX ([facility]) lymph # 2.5 10 1.5-5.0 Lymph # ALEX ([facility]) mono # 0.8 10 0.0-0.8 Terrell # ALEX ([facility]) baso # 0.0 10 0.0-0.2 Baso # ALEX ([facility]) ID Date Data Source [id number] 02/12/2021 10:50:00 AM EDT CASSEL ([facility]) Name Value Range Interpretation Code Description Data Huma rce(s) Supporting Document(s) estimated average glucose 117 mg/dL 60-110 Above high norm al Estimated Average Glucose CASSEL ([facility]) Hemoglobin A1c/Hemoglobin.total in Blood 5.7 % Hemoglobin a1C [facility]) ID Date Data Source [id number] 02/12/2021 10:50:00 AM EDT ALEX ([facility]) Name Value Range Interpretation Code Description Data Huma rce(s) Supporting Document(s) thyroid stimulating hormone 1.980 uIU/mL 0.358-3.740 Thyroid Stimulating Hormone CASSEL ([facility]) ID Date Data Source [id number] 06/27/2020 03:30:00 PM EST [facility]) Name Value Range Interpretation Code Description Data Huma rce(s) Supporting Document(s) SARS-CoV-2 (COVID-19) RNA [Presence] in Respiratory specimen by OC with probe detection detected not detected Abnormal (applies to non-numeric results) Sars Cov 2 RNA [facility]) ID Date Data Source [id number] 06/27/2020 03:30:00 PM EST [facility]) Name Value Range Interpretation Code Description Data Huma rce(s) Supporting Document(s) SARS-CoV-2 (COVID-19) RNA [Presence] in Respiratory specimen by OC with probe detection detected not detected Abnormal (applies to non-numeric results) Sars Cov 2 RNA [facility]) ID Date Data Source [id number] 06/27/2020 03:30:00 PM EST [facility]) Name Value Range Interpretation Code Description Data Huma rce(s) Supporting Document(s) SARS-CoV-2 (COVID-19) RNA [Presence] in Respiratory specimen by OC with probe detection detected not detected Abnormal (applies to non-numeric results) Sars Cov 2 RNA [facility]) ID Date Data Source [id number] 06/27/2020 03:30:00 PM EST [facility]) Name Value Range Interpretation Code Description Data Huma rce(s) Supporting Document(s) SARS-CoV-2 (COVID-19) RNA [Presence] in Respiratory specimen by OC with probe detection detected not detected Abnormal (applies to non-numeric results) Sars Cov 2 RNA [facility]) ID Date Data Source [id number] 06/27/2020 03:30:00 PM EST [facility]) Name Value Range Interpretation Code Description Data Huma rce(s) Supporting Document(s) SARS-CoV-2 (COVID-19) RNA [Presence] in Respiratory specimen by OC with probe detection detected not detected Abnormal (applies to non-numeric results) Sars Cov 2 RNA [facility]) ID Date Data Source [id number] 06/27/2020 03:30:00 PM EST [facility]) Name Value Range Interpretation Code Description Data Huma rce(s) Supporting Document(s) SARS-CoV-2 (COVID-19) RNA [Presence] in Respiratory specimen by OC with probe detection detected not detected Abnormal (applies to non-numeric results) Sars Cov 2 RNA [facility]) ID Date Data Source [id number] 06/27/2020 03:30:00 PM EST [facility]) Name Value Range Interpretation Code Description Data Huma rce(s) Supporting Document(s) SARS-CoV-2 (COVID-19) RNA [Presence] in Respiratory specimen by OC with probe detection detected not detected Abnormal (applies to non-numeric results) [facility] Date Data Source [id number] 06/27/2020 03:30:00 PM EST [facility]) Name Value Range Interpretation Code Description Data Huma rce(s) Supporting Document(s) SARS-CoV-2 (COVID-19) RNA [Presence] in Respiratory specimen by OC with probe detection detected not detected Abnormal (applies to non-numeric results) Sars Cov 2 RNA [facility]) ID Date Data Source [id number] 06/27/2020 03:30:00 PM EST [facility]) Name Value Range Interpretation Code Description Data Huma rce(s) Supporting Document(s) SARS-CoV-2 (COVID-19) RNA [Presence] in Respiratory specimen by OC with probe detection detected not detected Abnormal (applies to non-numeric results) Sars Cov 2 RNA [facility]) ID Date Data Source [id number] 06/27/2020 03:30:00 PM EST [facility]) Name Value Range Interpretation Code Description Data Huma rce(s) Supporting Document(s) SARS-CoV-2 (COVID-19) RNA [Presence] in Respiratory specimen by OC with probe detection detected not detected Abnormal (applies to non-numeric results) Sars Cov 2 RNA [facility]) ID Date Data Source [id number] 06/27/2020 03:30:00 PM EST [facility]) Name Value Range Interpretation Code Description Data Huma rce(s) Supporting Document(s) SARS-CoV-2 (COVID-19) RNA [Presence] in Respiratory specimen by OC with probe detection detected not detected Abnormal (applies to non-numeric results) [facility] ID Date Data Source [id number] 06/27/2020 03:30:00 PM EST [facility]) Name Value Range Interpretation Code Description Data Huma rce(s) Supporting Document(s) SARS-CoV-2 (COVID-19) RNA [Presence] in Respiratory specimen by OC with probe detection detected not detected Abnormal (applies to non-numeric results) Sars Cov 2 RNA [facility]) ID Date Data Source [id number] 06/27/2020 03:30:00 PM EST [facility]) Name Value Range Interpretation Code Description Data Huma rce(s) Supporting Document(s) SARS-CoV-2 (COVID-19) RNA [Presence] in Respiratory specimen by OC with probe detection detected not detected Abnormal (applies to non-numeric results) Sars Cov 2 RNA [facility]) ID Date Data Source [id number] 06/27/2020 03:30:00 PM EST [facility]) Name Value Range Interpretation Code Description Data Huma rce(s) Supporting Document(s) SARS-CoV-2 (COVID-19) RNA [Presence] in Respiratory specimen by OC with probe detection detected not detected Abnormal (applies to non-numeric results) Sars Cov 2 RNA [facility]) ID Date Data Source [id number] 06/27/2020 03:30:00 PM EST [facility]) Name Value Range Interpretation Code Description Data Huma rce(s) Supporting Document(s) SARS-CoV-2 (COVID-19) RNA [Presence] in Respiratory specimen by OC with probe detection detected not detected Abnormal (applies to non-numeric results) [facility] ID Date Data Source [id number] 06/27/2020 03:30:00 PM EST [facility]) Name Value Range Interpretation Code Description Data Huma rce(s) Supporting Document(s) SARS-CoV-2 (COVID-19) RNA [Presence] in Respiratory specimen by OC with probe detection detected not detected Abnormal (applies to non-numeric results) Sars Cov 2 RNA [facility]) ID Date Data Source [id number] 06/27/2020 03:30:00 PM EST [facility]) Name Value Range Interpretation Code Description Data Huma rce(s) Supporting Document(s) SARS-CoV-2 (COVID-19) RNA [Presence] in Respiratory specimen by OC with probe detection detected not detected Abnormal (applies to non-numeric results) Sars Cov 2 RNA CASSEL ([facility]) ID Date Data Source [id number] 06/27/2020 03:30:00 PM EST ALEX ([facility]) Name Value Range Interpretation Code Description Data Huma rce(s) Supporting Document(s) SARS-CoV-2 (COVID-19) RNA [Presence] in Respiratory specimen by OC with probe detection detected not detected Abnormal (applies to non-numeric results) Sars Cov 2 RNA CASSEL ([facility]) ID Date Data Source [id number] 06/27/2020 03:30:00 PM EST [facility] Name Value Range Interpretation Code Description Data Huma rce(s) Supporting Document(s) SARS-COV-2 RNA RESP QL OC+PROBE [facility] This lab was ordered by [facility] and reported by [facility]. ID Date Data Source [id number] 03/27/2020 02:58:43 PM EDT [facility] Measurements & CalculationsHeight: 72 inches (6 ft. [...] (ER) or urgent care clinic? Yes - [facility] Emergency room (ER) or urgent care date [...] barriers: nonePatient's Language used in visit: YesLanguage: chadian Pain AssessmentPain ScaleNumeric Rating Scale: 5 / [...] on the note from Ortho 03/20/20:They list [place] and [facility] on his med list. He has not been taking them. SEEING [employer] relfects this.They also started him on gabapentin. [...] during this visit, including review of any [id number] medications, herbal therapies, and/or supplements.Allergy ReviewAllergy List [...] essment & Plan Problems:Assessed:Sciatica, left side (ICD-724.3) (AIB73-P46.32) Assessment: Instructions: And spinal stenosis.Seeing Ortho for [...] Orders:Adult - Ofc Vst, EST, Level III [[id number]] Medications:LYRICA 200 MG ORAL CAPSULE (PREGABALIN) One po qd. #30[Capsule] x 1 Route:ORAL Entered and Authorized by: Blayne Mayfield MD Method used: Electronically to [facility] (retail) [address] [place] [address] Note to Pharmacy: Route: ORAL; RxID: [id number] signed by Blayne Mayfield MD on 03/27/2020 at 3:38 PM Name Value Range Interpretation Code Description Data Huma rce(s) Supporting Document(s) Procedure Social History No Information Vital Signs ID Date Data Source UNK Name Value Range Interpretation Code Description Data Source(s) Body height 72 [in_i] 72 [in_i] ALEX ([facility]) Body height 72 [in_i] 72 [in_i] ALEX ([facility]) Body height 72 [in_i] 72 [in_i] ALEX ([facility]) Body height 72 [in_i] 72 [in_i] ALEX ([facility]) Body height 72 [in_i] 72 [in_i] ALEX ([facility]) Body height 72 [in_i] 72 [in_i] ALEX ([facility]) Diastolic blood pressure 81 mm[Hg] 81 mm[Hg] ALEX ([facility]) Body height 72 [in_i] 72 [in_i] ALEX ([facility]) Body mass index (BMI) [Ratio] 29.1 kg/m2 29.1 k g/m2 ALEX ([facility]) Systolic blood pressure 132 mm[Hg] 132 mm[Hg] A [facility] ([facility]) Body weight 3432 [oz_av] 3432 [oz_av] ALEX ([facility]) Systolic blood pressure 132 mm[Hg] 132 mm[Hg] A [facility] ([facility]) Diastolic blood pressure 81 mm[Hg] 81 mm[Hg] ALEX ([facility]) Body mass index (BMI) [Ratio] 29.1 kg/m2 29.1 k g/m2 A[facility] ([facility]) Body height 72 [in_i] 72 [in_i] ALEX ([facility]) Body weight 3432 [oz_av] 3432 [oz_av] ALEX ([facility]) Diastolic blood pressure 81 mm[Hg] 81 mm[Hg] ALEX ([facility]) Body height 72 [in_i] 72 [in_i] ALEX ([facility]) Body mass index (BMI) [Ratio] 29.1 kg/m2 29.1 k g/m2 ALEX ([facility]) Systolic blood pressure 132 mm[Hg] 132 mm[Hg] A [facility] ([facility]) Body weight 3432 [oz_av] 3432 [oz_av] ALEX ([facility]) Diastolic blood pressure 81 mm[Hg] 81 mm[Hg] ALEX ([facility]) Body height 72 [in_i] 72 [in_i] ALEX ([facility]) Body mass index (BMI) [Ratio] 29.1 kg/m2 29.1 k g/m2 A[facility] ([facility]) Systolic blood pressure 132 mm[Hg] 132 mm[Hg] [facility] Body weight 3432 [oz_av] 3432 [oz_av] ALEX ([facility]) Diastolic blood pressure 81 mm[Hg] 81 mm[Hg] ALEX ([facility]) Body height 72 [in_i] 72 [in_i] ALEX ([facility]) Body mass index (BMI) [Ratio] 29.1 kg/m2 29.1 k g/m2 A[facility] ([facility]) Systolic blood pressure 132 mm[Hg] 132 mm[Hg] [facility] Body weight 3432 [oz_av] 3432 [oz_av] ALEX ([facility]) Diastolic blood pressure 81 mm[Hg] 81 mm[Hg] ALEX ([facility]) Body height 72 [in_i] 72 [in_i] ALEX ([facility]) Body mass index (BMI) [Ratio] 29.1 kg/m2 29.1 k g/m2 A[facility] ([facility]) Systolic blood pressure 132 mm[Hg] 132 mm[Hg] A [facility] ([facility]) Body weight 3432 [oz_av] 3432 [oz_av] ALEX ([facility]) Diastolic blood pressure 81 mm[Hg] 81 mm[Hg] ALEX ([facility]) Body height 72 [in_i] 72 [in_i] ALEX ([facility]) Body mass index (BMI) [Ratio] 29.1 kg/m2 29.1 k g/m2 ALEX ([facility]) Systolic blood pressure 132 mm[Hg] 132 mm[Hg] A [facility] ([facility]) Body weight 3432 [oz_av] 3432 [oz_av] ALEX ([facility]) Diastolic blood pressure 74 mm[Hg] 74 mm[Hg] ALEX ([facility]) Body height 72 [in_i] 72 [in_i] ALEX ([facility]) Systolic blood pressure 122 mm[Hg] 122 mm[Hg] A [facility] ([facility]) Diastolic blood pressure 74 mm[Hg] 74 mm[Hg] ALEX ([facility]) Body height 72 [in_i] 72 [in_i] ALEX ([facility]) Systolic blood pressure 122 mm[Hg] 122 mm[Hg] A [facility] ([facility]) Body height 72 [in_i] 72 [in_i] ALEX ([facility]) Diastolic blood pressure 74 mm[Hg] 74 mm[Hg] ALEX ([facility]) Systolic blood pressure 122 mm[Hg] 122 mm[Hg] A [facility] ([facility]) Diastolic blood pressure 74 mm[Hg] 74 mm[Hg] ALEX ([facility]) Body height 72 [in_i] 72 [in_i] ALEX ([facility]) Systolic blood pressure 122 mm[Hg] 122 mm[Hg] A [facility] ([facility]) Diastolic blood pressure 74 mm[Hg] 74 mm[Hg] ALEX ([facility]) Body height 72 [in_i] 72 [in_i] ALEX ([facility]) Systolic blood pressure 122 mm[Hg] 122 mm[Hg] [facility] Diastolic blood pressure 74 mm[Hg] 74 mm[Hg] ALEX ([facility]) Body height 72 [in_i] 72 [in_i] ALEX ([facility]) Systolic blood pressure 122 mm[Hg] 122 mm[Hg] A [facility] ([facility]) Diastolic blood pressure 74 mm[Hg] 74 mm[Hg] ALEX ([facility]) Body height 72 [in_i] 72 [in_i] ALEX ([facility]) Systolic blood pressure 122 mm[Hg] 122 mm[Hg] [facility] Diastolic blood pressure 74 mm[Hg] 74 mm[Hg] ALEX ([facility]) Body height 72 [in_i] 72 [in_i] ALEX ([facility]) Systolic blood pressure 122 mm[Hg] 122 mm[Hg] A [facility] ([facility]) Diastolic blood pressure 73 mm[Hg] 73 mm[Hg] ALEX ([facility]) Body height 72 [in_i] 72 [in_i] ALEX ([facility]) Body mass index (BMI) [Ratio] 28.9 kg/m2 28.9 k g/m2 ALEX ([facility]) Systolic blood pressure 121 mm[Hg] 121 mm[Hg] A [facility] ([facility]) Body weight 3408 [oz_av] 3408 [oz_av] ALEX ([facility]) Body weight 3408 [oz_av] 3408 [oz_av] ALEX ([facility]) Diastolic blood pressure 73 mm[Hg] 73 mm[Hg] ALEX ([facility]) Body height 72 [in_i] 72 [in_i] ALEX ([facility]) Body mass index (BMI) [Ratio] 28.9 kg/m2 28.9 k g/m2 ALEX ([facility]) Systolic blood pressure 121 mm[Hg] 121 mm[Hg] A [facility] ([facility]) Diastolic blood pressure 73 mm[Hg] 73 mm[Hg] ALEX ([facility]) Body height 72 [in_i] 72 [in_i] ALEX ([facility]) Body mass index (BMI) [Ratio] 28.9 kg/m2 28.9 k g/m2 ALEX ([facility]) Systolic blood pressure 121 mm[Hg] 121 mm[Hg] A [facility] ([facility]) Body weight 3408 [oz_av] 3408 [oz_av] ALEX ([facility]) Diastolic blood pressure 73 mm[Hg] 73 mm[Hg] ALEX ([facility]) Body height 72 [in_i] 72 [in_i] ALEX ([facility]) Body mass index (BMI) [Ratio] 28.9 kg/m2 28.9 k g/m2 ALEX ([facility]) Systolic blood pressure 121 mm[Hg] 121 mm[Hg] [facility] Body weight 3408 [oz_av] 3408 [oz_av] ALEX ([facility]) Diastolic blood pressure 73 mm[Hg] 73 mm[Hg] ALEX ([facility]) Body height 72 [in_i] 72 [in_i] ALEX ([facility]) Body mass index (BMI) [Ratio] 28.9 kg/m2 28.9 k g/m2 ALEX ([facility]) Systolic blood pressure 121 mm[Hg] 121 mm[Hg] A [facility] ([facility]) Body weight 3408 [oz_av] 3408 [oz_av] ALEX ([facility]) Diastolic blood pressure 73 mm[Hg] 73 mm[Hg] ALEX ([facility]) Body height 72 [in_i] 72 [in_i] ALEX ([facility]) Body mass index (BMI) [Ratio] 28.9 kg/m2 28.9 k g/m2 ALEX ([facility]) Systolic blood pressure 121 mm[Hg] 121 mm[Hg] [facility] Body weight 3408 [oz_av] 3408 [oz_av] ALEX ([facility]) Diastolic blood pressure 73 mm[Hg] 73 mm[Hg] ALEX ([facility]) Body height 72 [in_i] 72 [in_i] ALEX ([facility]) Body mass index (BMI) [Ratio] 28.9 kg/m2 28.9 k g/m2 ALEX ([facility]) Systolic blood pressure 121 mm[Hg] 121 mm[Hg] [facility] Body weight 3408 [oz_av] 3408 [oz_av] ALEX ([facility]) Body weight 3408 [oz_av] 3408 [oz_av] ALEX ([facility]) Diastolic blood pressure 73 mm[Hg] 73 mm[Hg] ALEX ([facility]) Body height 72 [in_i] 72 [in_i] ALEX ([facility]) Body mass index (BMI) [Ratio] 28.9 kg/m2 28.9 k g/m2 ALEX ([facility]) Systolic blood pressure 121 mm[Hg] 121 mm[Hg] A [facility] ([facility]) Body mass index (BMI) [Ratio] 28.9 kg/m2 28.9 k g/m2 ALEX ([facility]) Systolic blood pressure 121 mm[Hg] 121 mm[Hg] [facility] Body weight 3408 [oz_av] 3408 [oz_av] ALEX ([facility]) Diastolic blood pressure 73 mm[Hg] 73 mm[Hg] ALEX ([facility]) Body height 72 [in_i] 72 [in_i] ALEX ([facility]) Diastolic blood pressure 91 mm[Hg] 91 mm[Hg] ALEX ([facility]) Body height 72 [in_i] 72 [in_i] ALEX ([facility]) Body mass index (BMI) [Ratio] 29.3 kg/m2 29.3 k g/m2 ALEX ([facility]) Systolic blood pressure 133 mm[Hg] 133 mm[Hg] [facility] Body weight 3462 [oz_av] 3462 [oz_av] ALEX ([facility]) Diastolic blood pressure 91 mm[Hg] 91 mm[Hg] ALEX ([facility]) Body height 72 [in_i] 72 [in_i] ALEX ([facility]) Body mass index (BMI) [Ratio] 29.3 kg/m2 29.3 k g/m2 ALEX ([facility]) Systolic blood pressure 133 mm[Hg] 133 mm[Hg] A [facility] ([facility]) Body weight 3462 [oz_av] 3462 [oz_av] ALEX ([facility]) Body mass index (BMI) [Ratio] 29.3 kg/m2 29.3 k g/m2 ALEX ([facility]) Systolic blood pressure 133 mm[Hg] 133 mm[Hg] [facility] Diastolic blood pressure 91 mm[Hg] 91 mm[Hg] ALEX ([facility]) Body height 72 [in_i] 72 [in_i] ALEX ([facility]) Body weight 3462 [oz_av] 3462 [oz_av] ALEX ([facility]) Diastolic blood pressure 91 mm[Hg] 91 mm[Hg] ALEX ([facility]) Body height 72 [in_i] 72 [in_i] ALEX ([facility]) Body weight 3462 [oz_av] 3462 [oz_av] ALEX ([facility]) Body mass index (BMI) [Ratio] 29.3 kg/m2 29.3 k g/m2 ALEX ([facility]) Systolic blood pressure 133 mm[Hg] 133 mm[Hg] A [facility] ([facility]) Diastolic blood pressure 91 mm[Hg] 91 mm[Hg] ALEX ([facility]) Body height 72 [in_i] 72 [in_i] ALEX ([facility]) Body mass index (BMI) [Ratio] 29.3 kg/m2 29.3 k g/m2 ALEX ([facility]) Systolic blood pressure 133 mm[Hg] 133 mm[Hg] A [facility] ([facility]) Body weight 3462 [oz_av] 3462 [oz_av] ALEX ([facility]) Diastolic blood pressure 91 mm[Hg] 91 mm[Hg] ALEX ([facility]) Body height 72 [in_i] 72 [in_i] ALEX ([facility]) Body mass index (BMI) [Ratio] 29.3 kg/m2 29.3 k g/m2 ALEX ([facility]) Systolic blood pressure 133 mm[Hg] 133 mm[Hg] A [facility] ([facility]) Body weight 3462 [oz_av] 3462 [oz_av] ALEX ([facility]) Diastolic blood pressure 91 mm[Hg] 91 mm[Hg] ALEX ([facility]) Body height 72 [in_i] 72 [in_i] ALEX ([facility]) Body mass index (BMI) [Ratio] 29.3 kg/m2 29.3 k g/m2 ALEX ([facility]) Systolic blood pressure 133 mm[Hg] 133 mm[Hg] A [facility] ([facility]) Body weight 3462 [oz_av] 3462 [oz_av] ALEX ([facility]) Diastolic blood pressure 91 mm[Hg] 91 mm[Hg] ALEX ([facility]) Body height 72 [in_i] 72 [in_i] ALEX ([facility]) Body mass index (BMI) [Ratio] 29.3 kg/m2 29.3 k g/m2 ALEX ([facility]) Systolic blood pressure 133 mm[Hg] 133 mm[Hg] A [facility] ([facility]) Body weight 3462 [oz_av] 3462 [oz_av] ALEX ([facility]) Diastolic blood pressure 91 mm[Hg] 91 mm[Hg] ALEX ([facility]) Body height 72 [in_i] 72 [in_i] ALEX ([facility]) Body mass index (BMI) [Ratio] 29.3 kg/m2 29.3 k g/m2 ALEX ([facility]) Systolic blood pressure 133 mm[Hg] 133 mm[Hg] A [facility] ([facility]) Body weight 3462 [oz_av] 3462 [oz_av] ALEX ([facility]) Diastolic blood pressure 91 mm[Hg] 91 mm[Hg] ALEX ([facility]) Body height 72 [in_i] 72 [in_i] ALEX ([facility]) Body mass index (BMI) [Ratio] 29.3 kg/m2 29.3 k g/m2 ALEX ([facility]) Systolic blood pressure 133 mm[Hg] 133 mm[Hg] A [facility] ([facility]) Body weight 3462 [oz_av] 3462 [oz_av] ALEX ([facility]) Diastolic blood pressure 91 mm[Hg] 91 mm[Hg] ALEX ([facility]) Body height 72 [in_i] 72 [in_i] ALEX ([facility]) Body mass index (BMI) [Ratio] 29.3 kg/m2 29.3 k g/m2 ALEX ([facility]) Systolic blood pressure 133 mm[Hg] 133 mm[Hg] A [facility] ([facility]) Body weight 3462 [oz_av] 3462 [oz_av] ALEX ([facility]) Body height 72 [in_i] 72 [in_i] ALEX ([facility]) Body height 72 [in_i] 72 [in_i] ALEX ([facility]) Body height 72 [in_i] 72 [in_i] ALEX ([facility]) Body height 72 [in_i] 72 [in_i] ALEX ([facility]) Body height 72 [in_i] 72 [in_i] ALEX ([facility]) Body height 72 [in_i] 72 [in_i] ALEX ([facility]) Body height 72 [in_i] 72 [in_i] ALEX ([facility]) Body height 72 [in_i] 72 [in_i] ALEX ([facility]) Body height 72 [in_i] 72 [in_i] ALEX ([facility]) Body height 72 [in_i] 72 [in_i] ALEX ([facility]) Body height 72 [in_i] 72 [in_i] ALEX ([facility]) Body height 72 [in_i] 72 [in_i] ALEX ([facility]) Body height 72 [in_i] 72 [in_i] ALEX ([facility]) Body height 72 [in_i] 72 [in_i] ALEX ([facility]) Body height 72 [in_i] 72 [in_i] ALEX ([facility]) Diastolic blood pressure 78 mm[Hg] 78 mm[Hg] ALEX ([facility]) Body height 72 [in_i] 72 [in_i] ALEX ([facility]) Body weight 3136 [oz_av] 3136 [oz_av] ALEX ([facility]) Body mass index (BMI) [Ratio] 26.6 kg/m2 26.6 k g/m2 ALEX ([facility]) Systolic blood pressure 117 mm[Hg] 117 mm[Hg] A [facility] ([facility]) Body mass index (BMI) [Ratio] 26.6 kg/m2 26.6 k g/m2 ALEX ([facility]) Diastolic blood pressure 78 mm[Hg] 78 mm[Hg] ALEX ([facility]) Body weight 3136 [oz_av] 3136 [oz_av] ALEX ([facility]) Systolic blood pressure 117 mm[Hg] 117 mm[Hg] [facility] Body height 72 [in_i] 72 [in_i] ALEX ([facility]) Systolic blood pressure 117 mm[Hg] 117 mm[Hg] A [facility] ([facility]) Body weight 3136 [oz_av] 3136 [oz_av] ALEX ([facility]) Diastolic blood pressure 78 mm[Hg] 78 mm[Hg] ALEX ([facility]) Body height 72 [in_i] 72 [in_i] ALEX ([facility]) Body mass index (BMI) [Ratio] 26.6 kg/m2 26.6 k g/m2 ALEX ([facility]) Diastolic blood pressure 78 mm[Hg] 78 mm[Hg] ALEX ([facility]) Body height 72 [in_i] 72 [in_i] ALEX ([facility]) Body mass index (BMI) [Ratio] 26.6 kg/m2 26.6 k g/m2 ALEX ([facility]) Systolic blood pressure 117 mm[Hg] 117 mm[Hg] [facility] Body weight 3136 [oz_av] 3136 [oz_av] ALEX ([facility]) Body weight 3136 [oz_av] 3136 [oz_av] ALEX ([facility]) Diastolic blood pressure 78 mm[Hg] 78 mm[Hg] ALEX ([facility]) Body height 72 [in_i] 72 [in_i] ALEX ([facility]) Body mass index (BMI) [Ratio] 26.6 kg/m2 26.6 k g/m2 ALEX ([facility]) Systolic blood pressure 117 mm[Hg] 117 mm[Hg] [facility] Diastolic blood pressure 78 mm[Hg] 78 mm[Hg] ALEX ([facility]) Diastolic blood pressure 78 mm[Hg] 78 mm[Hg] ALEX ([facility]) Body height 72 [in_i] 72 [in_i] ALEX ([facility]) Body mass index (BMI) [Ratio] 26.6 kg/m2 26.6 k g/m2 ALEX ([facility]) Systolic blood pressure 117 mm[Hg] 117 mm[Hg] A [facility] ([facility]) Body weight 3136 [oz_av] 3136 [oz_av] ALEX ([facility]) Body height 72 [in_i] 72 [in_i] ALEX ([facility]) Body mass index (BMI) [Ratio] 26.6 kg/m2 26.6 k g/m2 ALEX ([facility]) Systolic blood pressure 117 mm[Hg] 117 mm[Hg] [facility] Body weight 3136 [oz_av] 3136 [oz_av] ALEX ([facility]) Diastolic blood pressure 78 mm[Hg] 78 mm[Hg] ALEX ([facility]) Body height 72 [in_i] 72 [in_i] ALEX ([facility]) Body mass index (BMI) [Ratio] 26.6 kg/m2 26.6 k g/m2 ALEX ([facility]) Systolic blood pressure 117 mm[Hg] 117 mm[Hg] [facility] Body weight 3136 [oz_av] 3136 [oz_av] ALEX ([facility]) Diastolic blood pressure 78 mm[Hg] 78 mm[Hg] ALEX ([facility]) Body height 72 [in_i] 72 [in_i] ALEX ([facility]) Body mass index (BMI) [Ratio] 26.6 kg/m2 26.6 k g/m2 ALEX ([facility]) Systolic blood pressure 117 mm[Hg] 117 mm[Hg] A [facility] ([facility]) Body weight 3136 [oz_av] 3136 [oz_av] ALEX ([facility]) Diastolic blood pressure 78 mm[Hg] 78 mm[Hg] ALEX ([facility]) Body height 72 [in_i] 72 [in_i] ALEX ([facility]) Body mass index (BMI) [Ratio] 26.6 kg/m2 26.6 k g/m2 ALEX ([facility]) Systolic blood pressure 117 mm[Hg] 117 mm[Hg] [facility] Body weight 3136 [oz_av] 3136 [oz_av] ALEX ([facility]) Diastolic blood pressure 78 mm[Hg] 78 mm[Hg] ALEX ([facility]) Body height 72 [in_i] 72 [in_i] ALEX ([facility]) Body mass index (BMI) [Ratio] 26.6 kg/m2 26.6 k g/m2 ALEX ([facility]) Systolic blood pressure 117 mm[Hg] 117 mm[Hg] A [facility] ([facility]) Body weight 3136 [oz_av] 3136 [oz_av] ALEX ([facility]) Diastolic blood pressure 78 mm[Hg] 78 mm[Hg] ALEX ([facility]) Body height 72 [in_i] 72 [in_i] ALEX ([facility]) Body mass index (BMI) [Ratio] 26.6 kg/m2 26.6 k g/m2 ALEX ([facility]) Systolic blood pressure 117 mm[Hg] 117 mm[Hg] [facility] Body weight 3136 [oz_av] 3136 [oz_av] ALEX ([facility]) Diastolic blood pressure 78 mm[Hg] 78 mm[Hg] ALEX ([facility]) Body height 72 [in_i] 72 [in_i] ALEX ([facility]) Body mass index (BMI) [Ratio] 26.6 kg/m2 26.6 k g/m2 ALEX ([facility]) Systolic blood pressure 117 mm[Hg] 117 mm[Hg] [facility] Body weight 3136 [oz_av] 3136 [oz_av] ALEX ([facility]) Diastolic blood pressure 78 mm[Hg] 78 mm[Hg] ALEX ([facility]) Body height 72 [in_i] 72 [in_i] ALEX ([facility]) Body mass index (BMI) [Ratio] 26.6 kg/m2 26.6 k g/m2 ALEX ([facility]) Systolic blood pressure 117 mm[Hg] 117 mm[Hg] A [facility] ([facility]) Body weight 3136 [oz_av] 3136 [oz_av] ALEX ([facility]) Body mass index (BMI) [Ratio] 26.6 kg/m2 26.6 k g/m2 ALEX ([facility]) Systolic blood pressure 117 mm[Hg] 117 mm[Hg] A [facility] ([facility]) Body weight 3136 [oz_av] 3136 [oz_av] ALEX ([facility]) Diastolic blood pressure 78 mm[Hg] 78 mm[Hg] ALEX ([facility]) Body height 72 [in_i] 72 [in_i] ALEX ([facility]) Diastolic blood pressure 78 mm[Hg] 78 mm[Hg] ALEX ([facility]) Body height 72 [in_i] 72 [in_i] ALEX ([facility]) Body mass index (BMI) [Ratio] 26.6 kg/m2 26.6 k g/m2 ALEX ([facility]) Systolic blood pressure 117 mm[Hg] 117 mm[Hg] A [facility] ([facility]) Body weight 3136 [oz_av] 3136 [oz_av] ALEX ([facility]) Diastolic blood pressure 78 mm[Hg] 78 mm[Hg] ALEX ([facility]) Body height 72 [in_i] 72 [in_i] ALEX ([facility]) Body mass index (BMI) [Ratio] 26.6 kg/m2 26.6 k g/m2 ALEX ([facility]) Systolic blood pressure 117 mm[Hg] 117 mm[Hg] [facility] Body weight 3136 [oz_av] 3136 [oz_av] ALEX ([facility]) Body weight 3216 [oz_av] 3216 [oz_av] ALEX ([facility]) Diastolic blood pressure 76 mm[Hg] 76 mm[Hg] ALEX ([facility]) Body height 72 [in_i] 72 [in_i] ALEX ([facility]) Body mass index (BMI) [Ratio] 27.3 kg/m2 27.3 k g/m2 ALEX ([facility]) Systolic blood pressure 126 mm[Hg] 126 mm[Hg] [facility] Diastolic blood pressure 76 mm[Hg] 76 mm[Hg] ALEX ([facility]) Body height 72 [in_i] 72 [in_i] ALEX ([facility]) Body mass index (BMI) [Ratio] 27.3 kg/m2 27.3 k g/m2 ALEX ([facility]) Systolic blood pressure 126 mm[Hg] 126 mm[Hg] [facility] Body weight 3216 [oz_av] 3216 [oz_av] ALEX ([facility]) Diastolic blood pressure 76 mm[Hg] 76 mm[Hg] ALEX ([facility]) Body height 72 [in_i] 72 [in_i] ALEX ([facility]) Body mass index (BMI) [Ratio] 27.3 kg/m2 27.3 k g/m2 ALEX ([facility]) Systolic blood pressure 126 mm[Hg] 126 mm[Hg] [facility] Body weight 3216 [oz_av] 3216 [oz_av] ALEX ([facility]) Body mass index (BMI) [Ratio] 27.3 kg/m2 27.3 k g/m2 ALEX ([facility]) Systolic blood pressure 126 mm[Hg] 126 mm[Hg] A [facility] ([facility]) Body weight 3216 [oz_av] 3216 [oz_av] ALEX ([facility]) Diastolic blood pressure 76 mm[Hg] 76 mm[Hg] ALEX ([facility]) Body height 72 [in_i] 72 [in_i] ALEX ([facility]) Diastolic blood pressure 76 mm[Hg] 76 mm[Hg] ALEX ([facility]) Body height 72 [in_i] 72 [in_i] ALEX ([facility]) Body mass index (BMI) [Ratio] 27.3 kg/m2 27.3 k g/m2 ALEX ([facility]) Systolic blood pressure 126 mm[Hg] 126 mm[Hg] A [facility] ([facility]) Body weight 3216 [oz_av] 3216 [oz_av] ALEX ([facility]) Diastolic blood pressure 76 mm[Hg] 76 mm[Hg] ALEX ([facility]) Body height 72 [in_i] 72 [in_i] ALEX ([facility]) Body mass index (BMI) [Ratio] 27.3 kg/m2 27.3 k g/m2 ALEX ([facility]) Systolic blood pressure 126 mm[Hg] 126 mm[Hg] [facility] Body weight 3216 [oz_av] 3216 [oz_av] ALEX ([facility]) Diastolic blood pressure 76 mm[Hg] 76 mm[Hg] ALEX ([facility]) Body height 72 [in_i] 72 [in_i] ALEX ([facility]) Body mass index (BMI) [Ratio] 27.3 kg/m2 27.3 k g/m2 ALEX ([facility]) Systolic blood pressure 126 mm[Hg] 126 mm[Hg] [facility] Body weight 3216 [oz_av] 3216 [oz_av] ALEX ([facility]) Diastolic blood pressure 76 mm[Hg] 76 mm[Hg] ALEX ([facility]) Body height 72 [in_i] 72 [in_i] ALEX ([facility]) Body mass index (BMI) [Ratio] 27.3 kg/m2 27.3 k g/m2 ALEX ([facility]) Systolic blood pressure 126 mm[Hg] 126 mm[Hg] [facility] Body weight 3216 [oz_av] 3216 [oz_av] ALEX ([facility]) Diastolic blood pressure 76 mm[Hg] 76 mm[Hg] ALEX ([facility]) Body height 72 [in_i] 72 [in_i] ALEX ([facility]) Body mass index (BMI) [Ratio] 27.3 kg/m2 27.3 k g/m2 ALEX ([facility]) Systolic blood pressure 126 mm[Hg] 126 mm[Hg] [facility] Body weight 3216 [oz_av] 3216 [oz_av] ALEX ([facility]) Systolic blood pressure 126 mm[Hg] 126 mm[Hg] A THENA ([facility]) Body weight 3216 [oz_av] 3216 [oz_av] ALEX ([facility]) Diastolic blood pressure 76 mm[Hg] 76 mm[Hg] ALEX ([facility]) Body height 72 [in_i] 72 [in_i] ALEX ([facility]) Body mass index (BMI) [Ratio] 27.3 kg/m2 27.3 k g/m2 ALEX ([facility]) Diastolic blood pressure 76 mm[Hg] 76 mm[Hg] ALEX ([facility]) Body height 72 [in_i] 72 [in_i] ALEX ([facility]) Body mass index (BMI) [Ratio] 27.3 kg/m2 27.3 k g/m2 ALEX ([facility]) Systolic blood pressure 126 mm[Hg] 126 mm[Hg] [facility] Body weight 3216 [oz_av] 3216 [oz_av] ALEX ([facility]) Body weight 3216 [oz_av] 3216 [oz_av] ALEX ([facility]) Systolic blood pressure 126 mm[Hg] 126 mm[Hg] [facility] Diastolic blood pressure 76 mm[Hg] 76 mm[Hg] ALEX ([facility]) Body height 72 [in_i] 72 [in_i] ALEX ([facility]) Body mass index (BMI) [Ratio] 27.3 kg/m2 27.3 k g/m2 ALEX ([facility]) Diastolic blood pressure 76 mm[Hg] 76 mm[Hg] ALEX ([facility]) Body height 72 [in_i] 72 [in_i] ALEX ([facility]) Body mass index (BMI) [Ratio] 27.3 kg/m2 27.3 k g/m2 ALEX ([facility]) Systolic blood pressure 126 mm[Hg] 126 mm[Hg] [facility] Body weight 3216 [oz_av] 3216 [oz_av] ALEX ([facility]) Diastolic blood pressure 76 mm[Hg] 76 mm[Hg] ALEX ([facility]) Body height 72 [in_i] 72 [in_i] ALEX ([facility]) Body mass index (BMI) [Ratio] 27.3 kg/m2 27.3 k g/m2 ALEX ([facility]) Systolic blood pressure 126 mm[Hg] 126 mm[Hg] [facility] Body weight 3216 [oz_av] 3216 [oz_av] ALEX ([facility]) Diastolic blood pressure 76 mm[Hg] 76 mm[Hg] ALEX ([facility]) Body height 72 [in_i] 72 [in_i] ALEX ([facility]) Body mass index (BMI) [Ratio] 27.3 kg/m2 27.3 k g/m2 ALEX ([facility]) Systolic blood pressure 126 mm[Hg] 126 mm[Hg] A [facility] ([facility]) Body weight 3216 [oz_av] 3216 [oz_av] ALEX ([facility]) Body height 72 [in_i] 72 [in_i] ALEX ([facility]) Body mass index (BMI) [Ratio] 27.3 kg/m2 27.3 k g/m2 ALEX ([facility]) Systolic blood pressure 126 mm[Hg] 126 mm[Hg] [facility] Diastolic blood pressure 76 mm[Hg] 76 mm[Hg] ALEX ([facility]) Body weight 3216 [oz_av] 3216 [oz_av] ALEX ([facility]) Diastolic blood pressure 76 mm[Hg] 76 mm[Hg] ALEX ([facility]) Body height 72 [in_i] 72 [in_i] ALEX ([facility]) Body mass index (BMI) [Ratio] 27.3 kg/m2 27.3 k g/m2 ALEX ([facility]) Systolic blood pressure 126 mm[Hg] 126 mm[Hg] A THENA ([facility]) Body weight 3216 [oz_av] 3216 [oz_av] ALEX ([facility]) Diastolic blood pressure 76 mm[Hg] 76 mm[Hg] ALEX ([facility]) Body height 72 [in_i] 72 [in_i] ALEX ([facility]) Body mass index (BMI) [Ratio] 27.3 kg/m2 27.3 k g/m2 ALEX ([facility]) Systolic blood pressure 126 mm[Hg] 126 mm[Hg] [facility] Body weight 3216 [oz_av] 3216 [oz_av] ALEX ([facility]) Diastolic blood pressure 86 mm[Hg] 86 mm[Hg] ALEX ([facility]) Body height 72 [in_i] 72 [in_i] ALEX ([facility]) Body mass index (BMI) [Ratio] 27.9 kg/m2 27.9 k g/m2 ALEX ([facility]) Systolic blood pressure 129 mm[Hg] 129 mm[Hg] A THENA ([facility]) Body weight 3296 [oz_av] 3296 [oz_av] ALEX ([facility]) Body weight 3296 [oz_av] 3296 [oz_av] ALEX ([facility]) Diastolic blood pressure 86 mm[Hg] 86 mm[Hg] ALEX ([facility]) Body height 72 [in_i] 72 [in_i] ALEX ([facility]) Body mass index (BMI) [Ratio] 27.9 kg/m2 27.9 k g/m2 ALEX ([facility]) Systolic blood pressure 129 mm[Hg] 129 mm[Hg] [facility] Diastolic blood pressure 86 mm[Hg] 86 mm[Hg] ALEX ([facility]) Body mass index (BMI) [Ratio] 27.9 kg/m2 27.9 k g/m2 ALEX ([facility]) Body height 72 [in_i] 72 [in_i] ALEX ([facility]) Body weight 3296 [oz_av] 3296 [oz_av] ALEX ([facility]) Systolic blood pressure 129 mm[Hg] 129 mm[Hg] A THENA ([facility]) Diastolic blood pressure 86 mm[Hg] 86 mm[Hg] ALEX ([facility]) Body height 72 [in_i] 72 [in_i] ALEX ([facility]) Body mass index (BMI) [Ratio] 27.9 kg/m2 27.9 k g/m2 ALEX ([facility]) Systolic blood pressure 129 mm[Hg] 129 mm[Hg] A THENA ([facility]) Body weight 3296 [oz_av] 3296 [oz_av] ALEX ([facility]) Diastolic blood pressure 86 mm[Hg] 86 mm[Hg] ALEX ([facility]) Body height 72 [in_i] 72 [in_i] ALEX ([facility]) Body mass index (BMI) [Ratio] 27.9 kg/m2 27.9 k g/m2 ALEX ([facility]) Systolic blood pressure 129 mm[Hg] 129 mm[Hg] [facility] Body weight 3296 [oz_av] 3296 [oz_av] ALEX ([facility]) Diastolic blood pressure 86 mm[Hg] 86 mm[Hg] ALEX ([facility]) Body height 72 [in_i] 72 [in_i] ALEX ([facility]) Body mass index (BMI) [Ratio] 27.9 kg/m2 27.9 k g/m2 ALEX ([facility]) Systolic blood pressure 129 mm[Hg] 129 mm[Hg] A [facility] ([facility]) Body weight 3296 [oz_av] 3296 [oz_av] ALEX ([facility]) Diastolic blood pressure 86 mm[Hg] 86 mm[Hg] ALEX ([facility]) Body height 72 [in_i] 72 [in_i] ALEX ([facility]) Body mass index (BMI) [Ratio] 27.9 kg/m2 27.9 k g/m2 ALEX ([facility]) Systolic blood pressure 129 mm[Hg] 129 mm[Hg] [facility] Body weight 3296 [oz_av] 3296 [oz_av] ALEX ([facility]) Diastolic blood pressure 86 mm[Hg] 86 mm[Hg] ALEX ([facility]) Body height 72 [in_i] 72 [in_i] ALEX ([facility]) Body mass index (BMI) [Ratio] 27.9 kg/m2 27.9 k g/m2 ALEX ([facility]) Systolic blood pressure 129 mm[Hg] 129 mm[Hg] [facility] Body weight 3296 [oz_av] 3296 [oz_av] ALEX ([facility]) Diastolic blood pressure 86 mm[Hg] 86 mm[Hg] ALEX ([facility]) Body height 72 [in_i] 72 [in_i] ALEX ([facility]) Body mass index (BMI) [Ratio] 27.9 kg/m2 27.9 k g/m2 ALEX ([facility]) Systolic blood pressure 129 mm[Hg] 129 mm[Hg] [facility] Body weight 3296 [oz_av] 3296 [oz_av] ALEX ([facility]) Diastolic blood pressure 86 mm[Hg] 86 mm[Hg] ALEX ([facility]) Body height 72 [in_i] 72 [in_i] ALEX ([facility]) Body mass index (BMI) [Ratio] 27.9 kg/m2 27.9 k g/m2 ALEX ([facility]) Systolic blood pressure 129 mm[Hg] 129 mm[Hg] A [facility] ([facility]) Body weight 3296 [oz_av] 3296 [oz_av] ALEX ([facility]) Diastolic blood pressure 86 mm[Hg] 86 mm[Hg] ALEX ([facility]) Body height 72 [in_i] 72 [in_i] ALEX ([facility]) Body mass index (BMI) [Ratio] 27.9 kg/m2 27.9 k g/m2 ALEX ([facility]) Systolic blood pressure 129 mm[Hg] 129 mm[Hg] [facility] Body weight 3296 [oz_av] 3296 [oz_av] ALEX ([facility]) Diastolic blood pressure 86 mm[Hg] 86 mm[Hg] ALEX ([facility]) Body height 72 [in_i] 72 [in_i] ALEX ([facility]) Body mass index (BMI) [Ratio] 27.9 kg/m2 27.9 k g/m2 ALEX ([facility]) Systolic blood pressure 129 mm[Hg] 129 mm[Hg] [facility] Body weight 3296 [oz_av] 3296 [oz_av] ALEX ([facility]) Diastolic blood pressure 86 mm[Hg] 86 mm[Hg] ALEX ([facility]) Body height 72 [in_i] 72 [in_i] ALEX ([facility]) Body mass index (BMI) [Ratio] 27.9 kg/m2 27.9 k g/m2 ALEX ([facility]) Systolic blood pressure 129 mm[Hg] 129 mm[Hg] [facility] Body weight 3296 [oz_av] 3296 [oz_av] ALEX ([facility]) Diastolic blood pressure 86 mm[Hg] 86 mm[Hg] ALEX ([facility]) Body height 72 [in_i] 72 [in_i] ALEX ([facility]) Body mass index (BMI) [Ratio] 27.9 kg/m2 27.9 k g/m2 ALEX ([facility]) Systolic blood pressure 129 mm[Hg] 129 mm[Hg] A [facility] ([facility]) Body weight 3296 [oz_av] 3296 [oz_av] ALEX ([facility]) Diastolic blood pressure 86 mm[Hg] 86 mm[Hg] ALEX ([facility]) Body height 72 [in_i] 72 [in_i] ALEX ([facility]) Body mass index (BMI) [Ratio] 27.9 kg/m2 27.9 k g/m2 ALEX ([facility]) Systolic blood pressure 129 mm[Hg] 129 mm[Hg] [facility] Body weight 3296 [oz_av] 3296 [oz_av] ALEX ([facility]) Diastolic blood pressure 86 mm[Hg] 86 mm[Hg] ALEX ([facility]) Body height 72 [in_i] 72 [in_i] ALEX ([facility]) Body mass index (BMI) [Ratio] 27.9 kg/m2 27.9 k g/m2 ALEX ([facility]) Systolic blood pressure 129 mm[Hg] 129 mm[Hg] [facility] Body weight 3296 [oz_av] 3296 [oz_av] ALEX ([facility]) Diastolic blood pressure 86 mm[Hg] 86 mm[Hg] ALEX ([facility]) Body height 72 [in_i] 72 [in_i] ALEX ([facility]) Body mass index (BMI) [Ratio] 27.9 kg/m2 27.9 k g/m2 ALEX ([facility]) Systolic blood pressure 129 mm[Hg] 129 mm[Hg] [facility] Body weight 3296 [oz_av] 3296 [oz_av] ALEX ([facility]) Diastolic blood pressure 86 mm[Hg] 86 mm[Hg] ALEX ([facility]) Body height 72 [in_i] 72 [in_i] ALEX ([facility]) Body mass index (BMI) [Ratio] 27.9 kg/m2 27.9 k g/m2 ALEX ([facility]) Systolic blood pressure 129 mm[Hg] 129 mm[Hg] [facility] Body weight 3296 [oz_av] 3296 [oz_av] ALEX ([facility]) Diastolic blood pressure 86 mm[Hg] 86 mm[Hg] ALEX ([facility]) Body height 72 [in_i] 72 [in_i] ALEX ([facility]) Body mass index (BMI) [Ratio] 27.9 kg/m2 27.9 k g/m2 ALEX ([facility]) Systolic blood pressure 129 mm[Hg] 129 mm[Hg] [facility] Body weight 3296 [oz_av] 3296 [oz_av] ALEX ([facility]) Diastolic blood pressure 71 mm[Hg] 71 mm[Hg] ALEX ([facility]) Body height 72 [in_i] 72 [in_i] ALEX ([facility]) Systolic blood pressure 109 mm[Hg] 109 mm[Hg] A [facility] ([facility]) Body mass index (BMI) [Ratio] 29.01 kg/m2 29.01 kg/m2 ALEX ([facility]) Body weight 3410.08 [oz_av] 3410.08 [oz_av] [facility] ([facility]) Body height 72 [in_i] 72 [in_i] ALEX ([facility]) Diastolic blood pressure 71 mm[Hg] 71 mm[Hg] ALEX ([facility]) Systolic blood pressure 109 mm[Hg] 109 mm[Hg] A [facility] ([facility]) Body mass index (BMI) [Ratio] 29.01 kg/m2 29.01 kg/m2 ALEX ([facility]) Body weight 3410.08 [oz_av] 3410.08 [oz_av] [facility] ([facility]) Systolic blood pressure 109 mm[Hg] 109 mm[Hg] [facility] Body weight 3410.08 [oz_av] 3410.08 [oz_av] [facility] ([facility]) Diastolic blood pressure 71 mm[Hg] 71 mm[Hg] ALEX ([facility]) Body height 72 [in_i] 72 [in_i] ALEX ([facility]) Body mass index (BMI) [Ratio] 29.01 kg/m2 29.01 kg/m2 ALEX ([facility]) Diastolic blood pressure 71 mm[Hg] 71 mm[Hg] ALEX ([facility]) Body height 72 [in_i] 72 [in_i] ALEX ([facility]) Body mass index (BMI) [Ratio] 29.01 kg/m2 29.01 kg/m2 ALEX ([facility]) Systolic blood pressure 109 mm[Hg] 109 mm[Hg] [facility] Body weight 3410.08 [oz_av] 3410.08 [oz_av] [facility] ([facility]) Diastolic blood pressure 71 mm[Hg] 71 mm[Hg] ALEX ([facility]) Body height 72 [in_i] 72 [in_i] ALEX ([facility]) Body mass index (BMI) [Ratio] 29.01 kg/m2 29.01 kg/m2 ALEX ([facility]) Systolic blood pressure 109 mm[Hg] 109 mm[Hg] [facility] Body weight 3410.08 [oz_av] 3410.08 [oz_av] [facility] ([facility]) Body weight 3410.08 [oz_av] 3410.08 [oz_av] [facility] ([facility]) Diastolic blood pressure 71 mm[Hg] 71 mm[Hg] ALEX ([facility]) Body height 72 [in_i] 72 [in_i] ALEX ([facility]) Body mass index (BMI) [Ratio] 29.01 kg/m2 29.01 kg/m2 ALEX ([facility]) Systolic blood pressure 109 mm[Hg] 109 mm[Hg] [facility] Diastolic blood pressure 71 mm[Hg] 71 mm[Hg] ALEX ([facility]) Body height 72 [in_i] 72 [in_i] ALEX ([facility]) Body mass index (BMI) [Ratio] 29.01 kg/m2 29.01 kg/m2 ALEX ([facility]) Systolic blood pressure 109 mm[Hg] 109 mm[Hg] [facility] Body weight 3410.08 [oz_av] 3410.08 [oz_av] [facility] ([facility]) Diastolic blood pressure 71 mm[Hg] 71 mm[Hg] ALEX ([facility]) Body height 72 [in_i] 72 [in_i] ALEX ([facility]) Body mass index (BMI) [Ratio] 29.01 kg/m2 29.01 kg/m2 ALEX ([facility]) Systolic blood pressure 109 mm[Hg] 109 mm[Hg] A [facility] ([facility]) Body weight 3410.08 [oz_av] 3410.08 [oz_av] [facility] ([facility]) Diastolic blood pressure 71 mm[Hg] 71 mm[Hg] ALEX ([facility]) Body height 72 [in_i] 72 [in_i] ALEX ([facility]) Body mass index (BMI) [Ratio] 29.01 kg/m2 29.01 kg/m2 ALEX ([facility]) Systolic blood pressure 109 mm[Hg] 109 mm[Hg] A [facility] ([facility]) Body weight 3410.08 [oz_av] 3410.08 [oz_av] [facility] ([facility]) Diastolic blood pressure 71 mm[Hg] 71 mm[Hg] ALEX ([facility]) Body height 72 [in_i] 72 [in_i] ALEX ([facility]) Body mass index (BMI) [Ratio] 29.01 kg/m2 29.01 kg/m2 ALEX ([facility]) Systolic blood pressure 109 mm[Hg] 109 mm[Hg] A [facility] ([facility]) Body weight 3410.08 [oz_av] 3410.08 [oz_av] [facility] ([facility]) Diastolic blood pressure 71 mm[Hg] 71 mm[Hg] ALEX ([facility]) Body height 72 [in_i] 72 [in_i] ALEX ([facility]) Body mass index (BMI) [Ratio] 29.01 kg/m2 29.01 kg/m2 ALEX ([facility]) Systolic blood pressure 109 mm[Hg] 109 mm[Hg] A [facility] ([facility]) Body weight 3410.08 [oz_av] 3410.08 [oz_av] [facility] ([facility]) Diastolic blood pressure 71 mm[Hg] 71 mm[Hg] ALEX ([facility]) Body height 72 [in_i] 72 [in_i] ALEX ([facility]) Body mass index (BMI) [Ratio] 29.01 kg/m2 29.01 kg/m2 ALEX ([facility]) Systolic blood pressure 109 mm[Hg] 109 mm[Hg] A [facility] ([facility]) Body weight 3410.08 [oz_av] 3410.08 [oz_av] [facility] ([facility]) Body weight 3410.08 [oz_av] 3410.08 [oz_av] [facility] ([facility]) Diastolic blood pressure 71 mm[Hg] 71 mm[Hg] ALEX ([facility]) Body height 72 [in_i] 72 [in_i] ALEX ([facility]) Body mass index (BMI) [Ratio] 29.01 kg/m2 29.01 kg/m2 ALEX ([facility]) Systolic blood pressure 109 mm[Hg] 109 mm[Hg] A [facility] ([facility]) Systolic blood pressure 109 mm[Hg] 109 mm[Hg] A [facility] ([facility]) Body weight 3410.08 [oz_av] 3410.08 [oz_av] [facility] ([facility]) Diastolic blood pressure 71 mm[Hg] 71 mm[Hg] ALEX ([facility]) Body height 72 [in_i] 72 [in_i] ALEX ([facility]) Body mass index (BMI) [Ratio] 29.01 kg/m2 29.01 kg/m2 ALEX ([facility]) Body weight 3410.08 [oz_av] 3410.08 [oz_av] [facility] ([facility]) Diastolic blood pressure 71 mm[Hg] 71 mm[Hg] ALEX ([facility]) Body height 72 [in_i] 72 [in_i] ALEX ([facility]) Body mass index (BMI) [Ratio] 29.01 kg/m2 29.01 kg/m2 ALEX ([facility]) Systolic blood pressure 109 mm[Hg] 109 mm[Hg] [facility] Diastolic blood pressure 71 mm[Hg] 71 mm[Hg] ALEX ([facility]) Body weight 3410.08 [oz_av] 3410.08 [oz_av] [facility] ([facility]) Body height 72 [in_i] 72 [in_i] ALEX ([facility]) Body mass index (BMI) [Ratio] 29.01 kg/m2 29.01 kg/m2 ALEX ([facility]) Systolic blood pressure 109 mm[Hg] 109 mm[Hg] [facility] Diastolic blood pressure 71 mm[Hg] 71 mm[Hg] ALEX ([facility]) Body height 72 [in_i] 72 [in_i] ALEX ([facility]) Body mass index (BMI) [Ratio] 29.01 kg/m2 29.01 kg/m2 ALEX ([facility]) Systolic blood pressure 109 mm[Hg] 109 mm[Hg] A [facility] ([facility]) Body weight 3410.08 [oz_av] 3410.08 [oz_av] [facility] ([facility]) Diastolic blood pressure 71 mm[Hg] 71 mm[Hg] ALEX ([facility]) Body height 72 [in_i] 72 [in_i] ALEX ([facility]) Body mass index (BMI) [Ratio] 29.01 kg/m2 29.01 kg/m2 ALEX ([facility]) Systolic blood pressure 109 mm[Hg] 109 mm[Hg] A [facility] ([facility]) Body weight 3410.08 [oz_av] 3410.08 [oz_av] [facility] ([facility]) Patient Treatment Plan of Care Planned Activity Planned Date Details Description Data Source (s) 60 ACTUAT Fluticasone propionate 0.25 MG /ACTUAT / salmeterol 0.05 MG/ACTUAT Dry Powder Inhaler 11/25/2020 12:00:00 AM EDT ATHEN A ([facility]) 60 ACTUAT Fluticasone propionate 0.25 MG /ACTUAT / salmeterol 0.05 MG/ACTUAT Dry Powder Inhaler 11/25/2020 12:00:00 AM EDT ATHEN A ([facility]) 60 ACTUAT Fluticasone propionate 0.25 MG /ACTUAT / salmeterol 0.05 MG/ACTUAT Dry Powder Inhaler 11/25/2020 12:00:00 AM EDT ATHEN A ([facility]) 60 ACTUAT Fluticasone propionate 0.25 MG /ACTUAT / salmeterol 0.05 MG/ACTUAT Dry Powder Inhaler 11/25/2020 12:00:00 AM EDT ATHEN A ([facility]) 60 ACTUAT Fluticasone propionate 0.25 MG /ACTUAT / salmeterol 0.05 MG/ACTUAT Dry Powder Inhaler 11/25/2020 12:00:00 AM EDT ATHEN A ([facility]) 60 ACTUAT Fluticasone propionate 0.25 MG /ACTUAT / salmeterol 0.05 MG/ACTUAT Dry Powder Inhaler 11/25/2020 12:00:00 AM EDT ATHEN A ([facility]) 60 ACTUAT Fluticasone propionate 0.25 MG /ACTUAT / salmeterol 0.05 MG/ACTUAT Dry Powder Inhaler 11/25/2020 12:00:00 AM EDT ATHEN A ([facility]) 60 ACTUAT Fluticasone propionate 0.25 MG /ACTUAT / salmeterol 0.05 MG/ACTUAT Dry Powder Inhaler 11/25/2020 12:00:00 AM EDT ATHEN A ([facility]) 60 ACTUAT Fluticasone propionate 0.25 MG /ACTUAT / salmeterol 0.05 MG/ACTUAT Dry Powder Inhaler 11/25/2020 12:00:00 AM EDT ATHEN A ([facility]) 60 ACTUAT Fluticasone propionate 0.25 MG /ACTUAT / salmeterol 0.05 MG/ACTUAT Dry Powder Inhaler 11/25/2020 12:00:00 AM EDT ATHEN A ([facility]) 60 ACTUAT Fluticasone propionate 0.25 MG /ACTUAT / salmeterol 0.05 MG/ACTUAT Dry Powder Inhaler 11/25/2020 12:00:00 AM EDT ATHEN A ([facility]) 60 ACTUAT Fluticasone propionate 0.25 MG /ACTUAT / salmeterol 0.05 MG/ACTUAT Dry Powder Inhaler 11/25/2020 12:00:00 AM EDT ATHEN A ([facility]) 60 ACTUAT Fluticasone propionate 0.25 MG /ACTUAT / salmeterol 0.05 MG/ACTUAT Dry Powder Inhaler 11/25/2020 12:00:00 AM EDT ATHEN A ([facility]) 60 ACTUAT Fluticasone propionate 0.25 MG /ACTUAT / salmeterol 0.05 MG/ACTUAT Dry Powder Inhaler 11/25/2020 12:00:00 AM EDT ATHEN A ([facility]) 60 ACTUAT Fluticasone propionate 0.25 MG /ACTUAT / salmeterol 0.05 MG/ACTUAT Dry Powder Inhaler 11/25/2020 12:00:00 AM EDT ATHEN A ([facility]) 60 ACTUAT Fluticasone propionate 0.25 MG /ACTUAT / salmeterol 0.05 MG/ACTUAT Dry Powder Inhaler 11/25/2020 12:00:00 AM EDT ATHEN A ([facility]) 60 ACTUAT Fluticasone propionate 0.25 MG /ACTUAT / salmeterol 0.05 MG/ACTUAT Dry Powder Inhaler 11/25/2020 12:00:00 AM EDT ATHEN A ([facility]) Ibuprofen 600 MG Oral Tablet [facility]LEX ([facility]) gabapentin 300 MG Oral Capsule ALEX ([facility]) Fluzone Quad 60 mcg (15 mcg x 4)/0.5 mL intramuscular susp. INJECT DIRECTED ALEX ([facility]) Escitalopram 20 MG Oral Tablet ALEX ([facility]) Escitalopram 10 MG Oral Tablet ALEX ([facility]) Amoxicillin 875 MG / Clavulanate 125 MG Oral Tablet ALEX ([facility]) Acetaminophen 325 MG Oral Tablet ALEX ([facility]) Tobramycin 3 MG/ML Ophthalmic Solution [facility] ([facility]) tizanidine 2 MG Oral Tablet [facility] ([facility]) terbinafine 250 MG Oral Tablet [facility] ([facility]) Sulfamethoxazole 800 MG / Trimethoprim 160 MG Oral Tablet [facility] ([facility]) sildenafil 100 MG Oral Tablet [facility] ([facility]) Omeprazole 20 MG Delayed Release Oral Capsule [facility] ([facility]) Naproxen 500 MG Oral Tablet ALEX ([facility]) methylprednisolone 4 mg tablets in a dos e pack TAKE DOSE BRIJESH DIRECTED ON SHEET ALEX ([facility]) meloxicam 7.5 MG Oral Tablet ALEX ([facility]) Ibuprofen 600 MG Oral Tablet A[facility] ([facility]) gabapentin 300 MG Oral Capsule ALEX ([facility]) Fluzone Quad 60 mcg (15 mcg x 4)/0.5 mL intramuscular susp. INJECT DIRECTED ALEX ([facility]) Escitalopram 20 MG Oral Tablet ALEX ([facility]) Escitalopram 10 MG Oral Tablet ALEX ([facility]) Amoxicillin 875 MG / Clavulanate 125 MG Oral Tablet ALEX ([facility]) Acetaminophen 325 MG Oral Tablet ALEX ([facility]) Tobramycin 3 MG/ML Ophthalmic Solution ALEX ([facility]) tizanidine 2 MG Oral Tablet ALEX ([facility]) terbinafine 250 MG Oral Tablet ALEX ([facility]) Sulfamethoxazole 800 MG / Trimethoprim 160 MG Oral Tablet ALEX ([facility]) sildenafil 100 MG Oral Tablet ALEX ([facility]) Omeprazole 20 MG Delayed Release Oral Capsule ALEX ([facility]) Naproxen 500 MG Oral Tablet ALEX ([facility]) methylprednisolone 4 mg tablets in a dos e pack TAKE DOSE BRIJESH DIRECTED ON SHEET ALEX ([facility]) meloxicam 7.5 MG Oral Tablet ALEX ([facility]) Ibuprofen 600 MG Oral Tablet A[facility] ([facility]) gabapentin 300 MG Oral Capsule ALEX ([facility]) Fluzone Quad 60 mcg (15 mcg x 4)/0.5 mL intramuscular susp. INJECT DIRECTED ALEX ([facility]) Escitalopram 20 MG Oral Tablet ALEX ([facility]) Escitalopram 10 MG Oral Tablet ALEX ([facility]) Amoxicillin 875 MG / Clavulanate 125 MG Oral Tablet ALEX ([facility]) Acetaminophen 325 MG Oral Tablet ALEX ([facility]) Tobramycin 3 MG/ML Ophthalmic Solution ALEX ([facility]) tizanidine 2 MG Oral Tablet ALEX ([facility]) terbinafine 250 MG Oral Tablet ALEX ([facility]) Sulfamethoxazole 800 MG / Trimethoprim 160 MG Oral Tablet ALEX ([facility]) sildenafil 100 MG Oral Tablet ALEX ([facility]) Omeprazole 20 MG Delayed Release Oral Capsule ALEX ([facility]) Naproxen 500 MG Oral Tablet ALEX ([facility]) methylprednisolone 4 mg tablets in a dos e pack TAKE DOSE BRIJESH DIRECTED ON SHEET ALEX ([facility]) meloxicam 7.5 MG Oral Tablet ALEX ([facility]) Ibuprofen 600 MG Oral Tablet ALEX ([facility]) gabapentin 300 MG Oral Capsule ALEX ([facility]) Fluzone Quad 60 mcg (15 mcg x 4)/0.5 mL intramuscular susp. INJECT DIRECTED ALEX ([facility]) Escitalopram 20 MG Oral Tablet ALEX ([facility]) Escitalopram 10 MG Oral Tablet ALEX ([facility]) Amoxicillin 875 MG / Clavulanate 125 MG Oral Tablet ALEX ([facility]) Acetaminophen 325 MG Oral Tablet ALEX ([facility]) Tobramycin 3 MG/ML Ophthalmic Solution ALEX ([facility]) tizanidine 2 MG Oral Tablet ALEX ([facility]) terbinafine 250 MG Oral Tablet ALEX ([facility]) Sulfamethoxazole 800 MG / Trimethoprim 160 MG Oral Tablet ALEX ([facility]) sildenafil 100 MG Oral Tablet ALEX ([facility]) Omeprazole 20 MG Delayed Release Oral Capsule ALEX ([facility]) Naproxen 500 MG Oral Tablet ALEX ([facility]) meloxicam 7.5 MG Oral Tablet ALEX ([facility]) Ibuprofen 600 MG Oral Tablet ALEX ([facility]) gabapentin 300 MG Oral Capsule ALEX ([facility]) Fluzone Quad 60 mcg (15 mcg x 4)/0.5 mL intramuscular susp. INJECT DIRECTED ALEX ([facility]) Escitalopram 20 MG Oral Tablet ALEX ([facility]) Escitalopram 10 MG Oral Tablet ALEX ([facility]) Amoxicillin 875 MG / Clavulanate 125 MG Oral Tablet ALEX ([facility]) Acetaminophen 325 MG Oral Tablet ALEX ([facility]) Tobramycin 3 MG/ML Ophthalmic Solution ALEX ([facility]) tizanidine 2 MG Oral Tablet ALEX ([facility]) terbinafine 250 MG Oral Tablet ALEX ([facility] [place] Sulfamethoxazole 800 MG / Trimethoprim 160 MG Oral Tablet ALEX ([facility] [place]) sildenafil 100 MG Oral Tablet ALEX ([facility] [place]) Omeprazole 20 MG Delayed Release Oral Capsule ALEX ([facility] [place]) Naproxen 500 MG Oral Tablet ALEX ([facility] [place]) methylprednisolone 4 mg tablets in a dos e pack TAKE DOSE BRIJESH DIRECTED ON SHEET ALEX ([facility]) meloxicam 7.5 MG Oral Tablet ALEX ([facility] [place]) Ibuprofen 600 MG Oral Tablet ALEX ([facility] [place]) gabapentin 300 MG Oral Capsule ALEX ([facility] [place]) Fluzone Quad 60 mcg (15 mcg x 4)/0.5 mL intramuscular susp. INJECT DIRECTED ALEX ([facility]) Escitalopram 20 MG Oral Tablet ALEX ([facility] [place]) Escitalopram 10 MG Oral Tablet ALEX ([facility] [place]) Amoxicillin 875 MG / Clavulanate 125 MG Oral Tablet ALEX ([facility] [place]) Acetaminophen 325 MG Oral Tablet ALEX ([facility] [place]) Tobramycin 3 MG/ML Ophthalmic Solution ALEX ([facility] [place]) tizanidine 2 MG Oral Tablet ALEX ([facility] [place]) Tobramycin 3 MG/ML Ophthalmic Solution ALEX ([facility] [place]) tizanidine 2 MG Oral Tablet ALEX ([facility] [place]) terbinafine 250 MG Oral Tablet ALEX ([facility] [place]) Sulfamethoxazole 800 MG / Trimethoprim 160 MG Oral Tablet ALEX ([facility] [place]) sildenafil 100 MG Oral Tablet ALEX ([facility] [place]) Omeprazole 20 MG Delayed Release Oral Capsule ALEX ([facility] [place]) Naproxen 500 MG Oral Tablet ALEX ([facility] [place]) methylprednisolone 4 mg tablets in a dos e pack TAKE DOSE BRIJESH DIRECTED ON SHEET ALEX ([facility]) meloxicam 7.5 MG Oral Tablet ALEX ([facility] [place]) Ibuprofen 600 MG Oral Tablet ALEX ([facility] [place]) gabapentin 300 MG Oral Capsule ALEX ([facility] [place]) Fluzone Quad 60 mcg (15 mcg x 4)/0.5 mL intramuscular susp. INJECT DIRECTED ALEX ([facility]) Escitalopram 20 MG Oral Tablet ALEX ([facility] [place]) Escitalopram 10 MG Oral Tablet ALEX ([facility] [place]) Amoxicillin 875 MG / Clavulanate 125 MG Oral Tablet ALEX ([facility] [place]) Acetaminophen 325 MG Oral Tablet ALEX ([facility] [place]) Tobramycin 3 MG/ML Ophthalmic Solution ALEX ([facility] [place]) tizanidine 2 MG Oral Tablet ALEX ([facility] [place]) terbinafine 250 MG Oral Tablet ALEX ([facility] [place]) Sulfamethoxazole 800 MG / Trimethoprim 160 MG Oral Tablet ALEX ([facility] [place]) sildenafil 100 MG Oral Tablet ALEX ([facility] [place]) Omeprazole 20 MG Delayed Release Oral Capsule ALEX ([facility] [place]) Naproxen 500 MG Oral Tablet ALEX ([facility] [place]) methylprednisolone 4 mg tablets in a dos e pack TAKE DOSE BRIJESH DIRECTED ON SHEET ALEX ([facility]) meloxicam 7.5 MG Oral Tablet ALEX ([facility] [place]) Prednisone 20 MG Oral Tablet ALEX ([facility] [place]) Omeprazole 20 MG Delayed Release Oral Capsule ALEX ([facility] [place]) Naproxen 500 MG Oral Tablet ALEX ([facility] [place]) methylprednisolone 4 mg tablets in a dos e pack TAKE DOSE BRIJESH DIRECTED ON SHEET ALEX ([facility]) meloxicam 7.5 MG Oral Tablet ALEX ([facility] [place]) Ibuprofen 600 MG Oral Tablet ALEX ([facility] [place]) gabapentin 300 MG Oral Capsule ALEX ([facility] [place]) Furosemide 20 MG Oral Tablet ALEX ([facility] [place]) Fluzone Quad 60 mcg (15 mcg x 4)/0.5 mL intramuscular susp. INJECT DIRECTED ALEX ([facility]) Escitalopram 20 MG Oral Tablet ALEX ([facility] [place]) Escitalopram 10 MG Oral Tablet ALEX ([facility] [place]) doxycycline hyclate 100 MG Oral Tablet ALEX ([facility] [place]) Amoxicillin 875 MG / Clavulanate 125 MG Oral Tablet ALEX ([facility] [place]) Acetaminophen 325 MG Oral Tablet ALEX ([facility] [place]) Tobramycin 3 MG/ML Ophthalmic Solution ALEX ([facility] [place]) tizanidine 2 MG Oral Tablet ALEX ([facility] [place]) Prednisone 20 MG Oral Tablet ALEX ([facility] [place]) Omeprazole 20 MG Delayed Release Oral Capsule ALEX ([facility] [place]) Naproxen 500 MG Oral Tablet ALEX ([facility] [place]) methylprednisolone 4 mg tablets in a dos e pack TAKE DOSE BRIJESH DIRECTED ON SHEET ALEX ([facility]) meloxicam 7.5 MG Oral Tablet ALEX ([facility] [place]) Ibuprofen 600 MG Oral Tablet ALEX ([facility] [place]) gabapentin 300 MG Oral Capsule ALEX ([facility] [place]) Furosemide 20 MG Oral Tablet ALEX ([facility] [place]) Fluzone Quad 60 mcg (15 mcg x 4)/0.5 mL intramuscular susp. INJECT DIRECTED ALEX ([facility]) Escitalopram 20 MG Oral Tablet ALEX ([facility] [place]) Escitalopram 10 MG Oral Tablet ALEX ([facility] [place]) doxycycline hyclate 100 MG Oral Tablet ALEX ([facility] [place]) Amoxicillin 875 MG / Clavulanate 125 MG Oral Tablet ALEX ([facility] [place]) Acetaminophen 325 MG Oral Tablet ALEX ([facility] [place]) Tobramycin 3 MG/ML Ophthalmic Solution ALEX ([facility] [place]) tizanidine 2 MG Oral Tablet ALEX ([facility] [place]) Prednisone 20 MG Oral Tablet ALEX ([facility] [place]) Naproxen 500 MG Oral Tablet ALEX ([facility] [place]) methylprednisolone 4 mg tablets in a dos e pack TAKE DOSE BRIJESH DIRECTED ON SHEET ALEX ([facility]) meloxicam 7.5 MG Oral Tablet ALEX ([facility] [place]) gabapentin 300 MG Oral Capsule ALEX ([facility] [place]) Furosemide 20 MG Oral Tablet ALEX ([facility] [place]) Fluzone Quad 60 mcg (15 mcg x 4)/0.5 mL intramuscular susp. INJECT DIRECTED ALXE ([facility]) Escitalopram 10 MG Oral Tablet ALEX ([facility] [place]) Tobramycin 3 MG/ML Ophthalmic Solution ALEX ([facility] [place]) tizanidine 2 MG Oral Tablet ALEX ([facility] [place]) Prednisone 20 MG Oral Tablet ALEX ([facility] [place]) Naproxen 500 MG Oral Tablet ALEX ([facility] [place]) methylprednisolone 4 mg tablets in a dos e pack TAKE DOSE BRIJESH DIRECTED ON SHEET ALEX ([facility]) meloxicam 7.5 MG Oral Tablet ALEX ([facility] [place]) gabapentin 300 MG Oral Capsule ALEX ([facility] [place]) Furosemide 20 MG Oral Tablet ALEX ([facility] [place]) Fluzone Quad 60 mcg (15 mcg x 4)/0.5 mL intramuscular susp. INJECT DIRECTED ALEX ([facility]) Escitalopram 10 MG Oral Tablet ALEX ([facility] [place]) doxycycline hyclate 100 MG Oral Tablet ALEX ([facility] [place]) Amoxicillin 875 MG / Clavulanate 125 MG Oral Tablet ALEX ([facility] [place]) Acetaminophen 325 MG Oral Tablet ALEX ([facility] [place]) Tobramycin 3 MG/ML Ophthalmic Solution ALEX ([facility] [place]) tizanidine 2 MG Oral Tablet ALEX ([facility] [place]) Prednisone 20 MG Oral Tablet ALEX ([facility] [place]) Naproxen 500 MG Oral Tablet ALEX ([facility] [place]) methylprednisolone 4 mg tablets in a dos e pack TAKE DOSE BRIJESH DIRECTED ON SHEET ALEX ([facility]) meloxicam 7.5 MG Oral Tablet ALEX ([facility] [place]) gabapentin 300 MG Oral Capsule ALEX ([facility] [place]) Furosemide 20 MG Oral Tablet ALEX ([facility] [place]) Fluzone Quad 60 mcg (15 mcg x 4)/0.5 mL intramuscular susp. INJECT DIRECTED ALEX ([facility]) Escitalopram 10 MG Oral Tablet ALEX ([facility] [place]) doxycycline hyclate 100 MG Oral Tablet ALEX ([facility] [place]) Amoxicillin 875 MG / Clavulanate 125 MG Oral Tablet ALEX ([facility] [place]) Acetaminophen 325 MG Oral Tablet ALEX ([facility] [place]) Tobramycin 3 MG/ML Ophthalmic Solution ALEX ([facility] [place]) tizanidine 2 MG Oral Tablet ALEX ([facility] [place]) methylprednisolone 4 mg tablets in a dos e pack TAKE DOSE BRIJESH DIRECTED ON SHEET ALEX ([facility]) Prednisone 20 MG Oral Tablet ALEX ([facility] [place]) Naproxen 500 MG Oral Tablet ALEX ([facility] [place]) methylprednisolone 4 mg tablets in a dos e pack TAKE DOSE BRIJESH DIRECTED ON SHEET ALEX ([facility]) meloxicam 7.5 MG Oral Tablet ALEX ([facility] [place]) gabapentin 300 MG Oral Capsule ALEX ([facility] [place]) Furosemide 20 MG Oral Tablet ALEX ([facility] [place]) Fluzone Quad 60 mcg (15 mcg x 4)/0.5 mL intramuscular susp. INJECT DIRECTED ALEX ([facility]) Escitalopram 10 MG Oral Tablet ALEX ([facility] [place]) doxycycline hyclate 100 MG Oral Tablet ALEX ([facility] [place]) Amoxicillin 875 MG / Clavulanate 125 MG Oral Tablet ALEX ([facility] [place]) Acetaminophen 325 MG Oral Tablet ALEX ([facility] [place]) Tobramycin 3 MG/ML Ophthalmic Solution ALEX ([facility] [place]) tizanidine 2 MG Oral Tablet ALEX ([facility] [place]) Prednisone 20 MG Oral Tablet ALEX ([facility] [place]) Naproxen 500 MG Oral Tablet ALEX ([facility] [place]) methylprednisolone 4 mg tablets in a dos e pack TAKE DOSE BRIJESH DIRECTED ON SHEET ALEX ([facility]) meloxicam 7.5 MG Oral Tablet ALEX ([facility] [place]) gabapentin 300 MG Oral Capsule ALEX ([facility] [place]) Furosemide 20 MG Oral Tablet ALEX ([facility] [place]) Fluzone Quad 60 mcg (15 mcg x 4)/0.5 mL intramuscular susp. INJECT DIRECTED ALEX ([facility]) Escitalopram 10 MG Oral Tablet ALEX ([facility] [place]) doxycycline hyclate 100 MG Oral Tablet ALEX ([facility] [place]) Amoxicillin 875 MG / Clavulanate 125 MG Oral Tablet ALEX ([facility] [place]) Acetaminophen 325 MG Oral Tablet ALEX ([facility] [place]) Tobramycin 3 MG/ML Ophthalmic Solution ALEX ([facility] [place]) tizanidine 2 MG Oral Tablet ALEX ([facility] [place]) Prednisone 20 MG Oral Tablet ALEX ([facility] [place]) Naproxen 500 MG Oral Tablet ALEX ([facility] [place]) methylprednisolone 4 mg tablets in a dos e pack TAKE DOSE BRIJESH DIRECTED ON SHEET ALEX ([facility]) meloxicam 7.5 MG Oral Tablet ALEX ([facility] [place]) gabapentin 300 MG Oral Capsule ALEX ([facility] [place]) Furosemide 20 MG Oral Tablet ALEX ([facility] [place]) Fluzone Quad 60 mcg (15 mcg x 4)/0.5 mL intramuscular susp. INJECT DIRECTED ALEX ([facility]) Escitalopram 10 MG Oral Tablet ALEX ([facility] [place]) doxycycline hyclate 100 MG Oral Tablet ALEX ([facility] [place]) Amoxicillin 875 MG / Clavulanate 125 MG Oral Tablet ALEX ([facility] [place]) Acetaminophen 325 MG Oral Tablet ALEX ([facility] [place]) doxycycline hyclate 100 MG Oral Tablet ALEX ([facility] [place]) Amoxicillin 875 MG / Clavulanate 125 MG Oral Tablet ALEX ([facility] [place]) Acetaminophen 325 MG Oral Tablet ALEX ([facility] [place]) Tobramycin 3 MG/ML Ophthalmic Solution ALEX ([facility] [place]) tizanidine 2 MG Oral Tablet ALEX ([facility] [place]) Prednisone 20 MG Oral Tablet ALEX ([facility] [place]) Naproxen 500 MG Oral Tablet ALEX ([facility] [place]) methylprednisolone 4 mg tablets in a dos e pack TAKE DOSE BRIJESH DIRECTED ON SHEET ALEX ([facility]) meloxicam 7.5 MG Oral Tablet ALEX ([facility] [place]) gabapentin 300 MG Oral Capsule ALEX ([facility] [place]) Furosemide 20 MG Oral Tablet ALEX ([facility] [place]) Fluzone Quad 60 mcg (15 mcg x 4)/0.5 mL intramuscular susp. INJECT DIRECTED ALEX ([facility]) Escitalopram 10 MG Oral Tablet ALEX ([facility] [place]) doxycycline hyclate 100 MG Oral Tablet ALEX ([facility] [place]) Amoxicillin 875 MG / Clavulanate 125 MG Oral Tablet ALEX ([facility] [place]) Acetaminophen 325 MG Oral Tablet ALEX ([facility] [place]) Tobramycin 3 MG/ML Ophthalmic Solution ALEX ([facility] [place]) tizanidine 2 MG Oral Tablet ALEX ([facility] [place]) Prednisone 20 MG Oral Tablet ALEX ([facility] [place]) Naproxen 500 MG Oral Tablet ALEX ([facility] [place]) methylprednisolone 4 mg tablets in a dos e pack TAKE DOSE BRIJESH DIRECTED ON SHEET ALEX ([facility]) meloxicam 7.5 MG Oral Tablet ALEX ([facility] [place]) gabapentin 300 MG Oral Capsule ALEX ([facility] [place]) Furosemide 20 MG Oral Tablet ALEX ([facility] [place]) Fluzone Quad 60 mcg (15 mcg x 4)/0.5 mL intramuscular susp. INJECT DIRECTED ALEX ([facility]) Escitalopram 10 MG Oral Tablet ALEX ([facility] [place]) doxycycline hyclate 100 MG Oral Tablet ALEX ([facility] [place]) Amoxicillin 875 MG / Clavulanate 125 MG Oral Tablet ALEX ([facility] [place]) Acetaminophen 325 MG Oral Tablet ALEX ([facility] [place])
[2021-05-04 22:06] LABS: ABG BASE EXCESS -0.7 (-2.0-2.0); ABG HCO3 23.3 MEQ/L (22.0-26.0); ABG O2 SATURATION 95.9 % (95.0-99.0); ABG PARTIAL PRESSURE CO2 36.1 mmHg (35.0-45.0); ABG PARTIAL PRESSURE O2 79.7 mmHg (75.0-100.0); ABG STANDARD HCO3 23.9 MEQ/L (22.0-26.0); ABG TOTAL CO2 24.4 MEQ/L (22.0-29.0); ABG pH (ARTERIAL) 7.427 UNITS (7.350-7.450)
[2021-05-04 22:18] LABS: BASO % 0.3 % (0.0-1.0); EOS # 0.1 10^3/uL (0.0-0.5); EOS % 0.8 % (0.0-3.0); HEMATOCRIT 41.8 % (42.0-52.0); HEMOGLOBIN 12.5 g/dl (13.5-17.5); LYMPH # 2.2 10^3/uL (1.5-5.0); LYMPH % 15.4 % (24.0-44.0); MEAN CORPUSCULAR HEMOGLOBIN 22.4 pg (27.0-33.0); MEAN CORPUSCULAR HGB CONC 29.9 g/dl (32.0-36.5); MONO # 1.3 10^3/uL (0.0-0.8); NEUTROPHILS # 10.5 10^3/uL (1.5-8.5); NEUTROPHILS % 74.1 % (36.0-66.0); PLATELET COUNT, AUTOMATED 251 10^3/uL (150-450); RED BLOOD COUNT 5.57 10^6/uL (4.30-6.10); WHITE BLOOD COUNT 14.1 10^3/uL (4.0-10.0)
[2021-05-04 22:36] LABS: ERYTHROCYTE SEDIMENTATION RATE 33 mm/hr (0-20)
[2021-05-04 22:48] LABS: ALT/SGPT 18 U/L (12-78); BILIRUBIN,DIRECT 0.1 MG/DL (0.0-0.2); BILIRUBIN,TOTAL 0.3 MG/DL (0.2-1.0); BLOOD UREA NITROGEN 12 MG/DL (7-18); C REACTIVE PROTEIN QUANTITATIV 4.68 MG/DL (0.00-0.30); CALCIUM LEVEL 8.1 MG/DL (8.5-10.1); CARBON DIOXIDE LEVEL 26 MEQ/L (21-32); CHLORIDE LEVEL 107 MEQ/L (98-107); CK-MB VALUE MASS 1.6 NG/ML (<3.6); CPK CREATINE PHOSPHOKINASE 101 U/L (39-308); CREATININE FOR GFR 1.42 MG/DL (0.70-1.30); GLUCOSE, FASTING 116 MG/DL (70-100); MB/CK RELATIVE INDEX 1.58 (< OR =4); NT-PRO BNP 4146 PG/ML (<125); POTASSIUM SERUM 4.6 MEQ/L (3.5-5.1); SODIUM LEVEL 138 MEQ/L (136-145); TOTAL PROTEIN 7.6 GM/DL (6.4-8.2); TROPONIN I < 0.02 NG/ML (< 0.10)
--- NOTE | 2021-05-04 23:48 | REPVR ---
PROCEDURE INFORMATION: Exam: XR Chest Exam date and time: 05/04/2021 9:46 PM Age: 50 years old Clinical indication: Dyspnea; Additional info: cough TECHNIQUE: Imaging protocol: XR of the chest. Views: 1 view. COMPARISON: 1. CR PORTABLE CHEST X-RAY 03/31/2021 1:[address] ANGIO CHEST 03/31/2021 4:32:09 AM FINDINGS: Lungs: There is chronic interstitial thickening, honeycombing, and traction bronchiectasis in both lungs that is similar in appearance compared to the prior chest x-ray on 03/31/2021. Pleural spaces: Unremarkable. No pleural effusion. No pneumothorax. Heart/Mediastinum: Unremarkable. No cardiomegaly. Bones/joints: Postoperative changes are noted from an anterior cervical discectomy and interbody fusion in the lower cervical spine. IMPRESSION: Chronic interstitial thickening, honeycombing, and traction bronchiectasis in both lungs that is similar in appearance compared to the prior chest x-ray on 03/31/2021 and can be seen with a usual interstitial pneumonia or nonspecific interstitial pneumonia pattern of lung disease. Electronically signed by: Pierce Guajardo On 05/04/2021 23:47:44 PM
[2021-05-04] MEDS ORDERED: PIPERACILLIN/TAZOBACTAM SOD 4.5 GM in D5W MINI-BAG PLUS 50 ML IV ONE (23:50)
[2021-05-04] MEDS ORDERED: VANCOMYCIN HCL 1,000 MG, VIAL MATE ADAPTER 1 EACH in NS 250 ML IV ONE (23:50)
--- NOTE | 2021-05-05 00:01 | REPVR ---
PROCEDURE INFORMATION: Exam: XR Left Hand Exam date and time: 05/04/2021 9:51 PM Age: 50 years old Clinical indication: Pain; Hand; Left; Additional info: Pain left thumb TECHNIQUE: Imaging protocol: XR Left hand. Views: 3 or more views. COMPARISON: 1. CR Wrist, complete LEFT 08/27/2016 11:33 AM 2. CR Wrist, complete 06/18/2016 5:24:46 PM FINDINGS: Bones/joints: Postoperative changes are noted from a resection of the proximal portion of the left scaphoid, lunate, and a portion of the triquetrum. There is no acute fracture or dislocation of the left hand. There is severe narrowing of the radiocarpal joint space at the articulation to seen the distal radius and capitate, which has developed since the left wrist x-rays on 08/27/2016. 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 There are several ossified bodies within and around the radiocarpal joint, which can also be seen in the left wrist x-rays on 08/27/2016. There is a smooth periosteal reaction involving the ulnar aspect of the left distal radius. The carpometacarpal joints, metacarpophalangeal joints, and interphalangeal joints are unremarkable. Soft tissues: There is soft tissue swelling along the radial aspect of the left wrist and left 1st metacarpal. IMPRESSION: 1. Soft tissue swelling along the radial aspect of the left wrist and left 1st metacarpal. 2. Degenerative changes involving the left distal radioulnar joint and radiocarpal joint, which have developed since the left wrist x-rays on 08/27/2016. 3. Postoperative changes are noted from a resection of the proximal portion of the left scaphoid, lunate, and a portion of the triquetrum, and there are several ossified bodies within and around the radiocarpal joint, which can also be seen in the left wrist x-rays on 08/27/2016. Electronically signed by: Pierce Guajardo On 05/05/2021 00:01:09 AM
[2021-05-05] MEDS ORDERED: BUSP5TA PO (00:15)
[2021-05-05] MEDS ORDERED: HOME MED LIST COMPLETE! XX SCH (00:20)
[2021-05-05] MEDS ORDERED: MORPHINE 4 MG/ML 1ML VIAL/SYRINGE (J2270) IV ONE (01:25)
[2021-05-05] MEDS ORDERED: diazePAM 10MG/2ML SYRINGE (J3360 PER 5MG) IV ONE (03:20)
--- NOTE | 2021-05-05 04:34 | REPVR ---
PROCEDURE INFORMATION: Exam: MR Left Upper Extremity Other Than Joint Without Contrast; Hand Exam date and time: 05/05/2021 4:03 AM Age: 50 years old Clinical indication: Pain and condition or disease; Prior surgery; Surgery date: 6+ months; Surgery type: For kienbock disease; Additional info: Rule out flexor tenosynovitis of the left thumb. TECHNIQUE: Imaging protocol: MR of the Left upper extremity without contrast. Exam focused on the hand. COMPARISON: CR Hand, complete LEFT 05/04/2021 9:41 PM FINDINGS: Limitations: Motion artifact degrades the image quality of several sequences obtained. Bones and cartilage: There is no acute fracture or dislocation of the left hand. The bone marrow signal is unremarkable. Postoperative changes are noted from a resection of the proximal portion of the scaphoid, resection of the lunate, and resection of the proximal portion of the triquetrum. 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 There are ossified bodies within and around the left radiocarpal joint. There is mild osteoarthritis involving the left distal radioulnar joint, triscaphe joint, and basal joint. Joint spaces: There is a left basal joint effusion. Collateral ligaments of digits: Intact. Volar plates of the fingers: Intact. Annular pulleys: The A1, A2, A3, A4, and A5 pulleys of the index, middle, ring, and little fingers are intact. The A1 frannie, oblique frannie, and A2 frannie of the thumb are intact. Sagittal bands: Intact. Extensor hoods: Intact. Flexor compartment tendons: There is a small amount of fluid in the left flexor pollicis longus tendon sheath, which is compatible with tenosynovitis. The flexor tendons are intact. Extensor compartment tendons: The extensor tendons are intact. There is tendinosis involving the extensor carpi ulnaris tendon at the level of the ulnar groove. There is fluid in the extensor pollicis longus tendon sheath and extensor carpi radialis longus and brevis tendon sheaths at the crossover point distal to Dakota's tubercle in the dorsal aspect of the wrist, which can be seen with a distal intersection syndrome. There is fluid in the left abductor pollicis longus and extensor pollicis brevis tendon sheaths, which can be seen with de Quervain tenosynovitis. Muscles: There is increased T2 signal in the left abductor pollicis brevis, opponens pollicis, flexor pollicis brevis, adductor pollicis, and 1st dorsal interosseous muscles. Soft tissues: There is edema in the subcutaneous tissues along the radial aspect of the left wrist and left 1st metacarpal. No drainable soft tissue fluid collection is noted. Carpal tunnel: No abnormal signal is noted in the median nerve. The median nerve does not have a flattened appearance in the carpal tunnel. There is no palmar bowing of the transverse carpal ligament. No swelling of the median nerve prior to its entry into the carpal tunnel is noted. There is no mass, cyst, fluid collection, or tenosynovitis of the flexor compartment tendons in the carpal tunnel. Guyon's canal: No compression of the ulnar nerve is noted in its course through Guyon's canal. There is no abnormal signal in the ulnar nerve. There is no accessory hypothenar muscle, mass, cyst, or fluid collection in Guyon's canal. The hook of the hamate is intact. IMPRESSION: 1. Increased T2 signal in the left abductor pollicis brevis, opponens pollicis, flexor pollicis brevis, adductor pollicis, and 1st dorsal interosseous muscles, which may represent grade 1 muscle strains or myositis. 2. Tenosynovitis involving the left flexor pollicis longus tendon. 3. Fluid in the left abductor pollicis longus and extensor pollicis brevis tendon sheaths, which can be seen with de Quervain tenosynovitis. 4. Fluid in the extensor pollicis longus tendon sheath and extensor carpi radialis longus and brevis tendon sheaths at the crossover point distal to Dakota's tubercle in the dorsal aspect of the wrist, which can be seen with a left distal intersection syndrome. 5. Tendinosis involving the left extensor carpi ulnaris tendon at the level of the ulnar groove. 6. 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 7. Mild osteoarthritis involving the left distal radioulnar, triscaphe, and basal joints. 8. Soft tissue edema along the radial aspect of the left wrist and left 1st metacarpal. Electronically signed by: Pierce Guajardo On 05/05/2021 04:33:36 AM
[2021-05-05] MEDS ORDERED: FUROSEMIDE 40MG/4ML VIAL (J1940) IV ONE (06:55)
[2021-05-05] MEDS ORDERED: ALBUTEROL SULFATE 2.5 MG/0.5 ML INH NEB SOLN NEB PRN (06:55)
[2021-05-05] MEDS ORDERED: PREGABALIN 75 MG CAP(LYRICA) PO PRN (06:55)
--- OUTSIDE RECORDS SUMMARY | 2021-05-05 07:17 | CCD ---
Author Author [facility] Address Unknown Phone Unavailable Care Team Providers Care Rig Hand Name Role Phone Jesus Mayfield MD Unavailable Unavailable Jesus Mayfield MD Unavailable Unavailable Jesus Mayfield MD Unavailable Unavailable Jesus Mayfield MD Unavailable Unavailable Jesus Mayfiedl MD Unavailable Unavailable Jesus Mayfield MD Unavailable [...] Unavailable Unavailable Jesus Mayfield MD Unavailable Unavailable Jseus Mayfield MD Unavailable Unavailable Jesus Mayfiedl MD Unavailable Unavailable Jesus Mayfield MD Unavailable [...] Unavailable Jesus Mayfield MD Unavailable Unavailable Sonia Powre MD Unavailable Unavailable Sonia Power MD Unavailable [...] Unavailable Jesus Mayfield MD Unavailable Unavailable Jesus Mayifeld MD Unavailable Unavailable Jesus Mayfield MD Unavailable [...] is protected by Article 27-F of the [facility] Public Health law. If you continue you may have access to information: Regarding HIV / AIDS; Provided by facilities licensed or operated by the [facility] Office of Mental Health; or Provided by the [facility] Office for People With Developmental Disabilities. If such information is present, then the following [facility] mandated warning applies: This information has been [...] law may result in a fine or fci sentence or both. A general authorization for the release of medical or other information is NOT sufficient authorization for further disc losure. Allergies and Adverse Reactions Type Description Substance Reaction Status Data Source(s ) Propensity to adverse reactions NO KNOWN ALLERGIES NO KNOWN ALLERGIES [facility] Allergy to substance Allergy to substance Allergy to substance A[facility] ([facility]) Allergy to substance Allergy to substance Allergy to substance A[facility] ([facility]) Allergy to substance Allergy to substance Allergy to substance A[facility] ([facility]) Allergy to substance Allergy to substance Allergy to substance A[facility] ([facility]) Allergy to substance Allergy to substance Allergy to substance [facility] ([facility]) Allergy to substance Allergy to substance Allergy to substance A[facility] ([facility]) Allergy to substance Allergy to substance Allergy to substance A[facility] ([facility]) Allergy to substance Allergy to substance Allergy to substance A[facility] ([facility]) Family History Family Member Name Family Member Gender Family Member Status Date o f Status Description Data Source(s) Unknown Unknown Problem [facility] ([facility]) Encounters Encounter Providers Location Date Indications Data Source(s ) Outpatient 05/30/2021 12:00:00 AM [facility] Outpatient Attender: Nicola ARZATEeferrer: Blayne Mayfield MD 05/30/2021 12:00:00 AM [facility] Blayne Mayfield MD: [address] [place] [address], Ph. Attender: Blayne Mayfield MD [facility] Medical 05/02/2021 12:00:00 AM EDT ALEX ([facility]) Blayne Mayfield MD: [address] [place] [address]2 504, Ph. Attender: Blayne Mayfield MD [facility] Medical 05/01/2021 12:00:00 AM EDT ALEX ([facility]) Blayne Mayfield MD: [address] [place] [address]0 504, Ph. Attender: Blayne Mayfield MD [facility] Medical 05/01/2021 12:00:00 AM EDT ALEX ([facility]) Blayne Mayfield MD: [address] [place] [address]4 504, Ph. Attender: Blayne Mayfield MD [facility] Medical 04/25/2021 12:00:00 AM EDT ALEX ([facility]) Blayne Mayfield MD: [address] [place] [address]7 504, Ph. Attender: Blayne Mayfield MD [facility] Medical 04/25/2021 12:00:00 AM EDT ALEX ([facility]) Blayne Mayfield MD: [address] [place] [address]7 504, Ph. Attender: Blayne Mayfield MD [facility] Medical 04/25/2021 12:00:00 AM EDT ALEX ([facility]) Blayne Mayfield MD: [address] [place] [address]9 504, Ph. Attender: Blayne Mayfield MD [facility] Medical 04/18/2021 12:00:00 AM EDT ALEX ([facility]) Blayne Mayfield MD: [address] [place] [address]8 504, Ph. Attender: Blayne Mayfield MD [facility] Medical 04/18/2021 12:00:00 AM EDT ALEX ([facility]) Blayne Mayfield MD: [address] [place] [address]1 504, Ph. Attender: Blayne Mayfield MD [facility] Medical 04/18/2021 12:00:00 AM EDT ALEX ([facility]) Blayne Mayfield MD: [address] [place] [address]3 504, Ph. Attender: Blayne Mayfield MD [facility] Medical 04/18/2021 12:00:00 AM EDT ALEX ([facility]) Blayne Mayfield MD: [address] [place] [address]1 504, Ph. Attender: Blayne Mayfield MD [facility] Medical 04/08/2021 12:00:00 AM EDT ALEX ([facility]) Blayne Mayfield MD: [address] [place] [address]8 504, Ph. Attender: Blayne Mayfield MD [facility] Medical 04/08/2021 12:00:00 AM EDT ALEX ([facility]) Blayne Mayfield MD: [address] [place] [address]5 504, Ph. Attender: Blayne Mayfield MD [facility] Medical 04/08/2021 12:00:00 AM EDT ALEX ([facility]) Blayne Mayfield MD: [address] [place] [address]3 504, Ph. Attender: Blayne Mayfield MD [facility] Medical 04/08/2021 12:00:00 AM EDT ALEX ([facility]) Blayne Mayfield MD: [address] [place] [address]0 504, Ph. Attender: Blayne Mayfield MD [facility] Medical 04/08/2021 12:00:00 AM EDT ALEX ([facility]) Blayne Mayfield MD: [address] [place] [address]4 504, Ph. Attender: Blayne Mayfield MD [facility] Medical 04/08/2021 12:00:00 AM EDT ALEX ([facility]) Blayne Mayfield MD: [address] [place] [address]2 504, Ph. Attender: Blayne Mayfield MD [facility] Medical 04/04/2021 12:00:00 AM EDT ALEX ([facility]) Blayne Mayfield MD: [address] [place] [address]0 504, Ph. Attender: Blayne Mayfield MD [facility] Medical 04/04/2021 12:00:00 AM EDT ALEX ([facility]) Blayne Mayfield MD: [address] [place] [address]2 504, Ph. Attender: Blayne Mayfield MD [facility] Medical 04/04/2021 12:00:00 AM EDT ALEX ([facility]) Blayne Mayfield MD: [address] [place] [address]2 504, Ph. Attender: Blayne Mayfield MD [facility] Medical 04/04/2021 12:00:00 AM EDT ALEX ([facility]) Blayne Mayfield MD: [address] [place] [address]4 504, Ph. Attender: Blayne Mayfield MD [facility] Medical 04/04/2021 12:00:00 AM EDT ALEX ([facility]) Blayne Mayfield MD: [address] [place] [address]4 504, Ph. Attender: Blayne Mayfield MD [facility] Medical 04/04/2021 12:00:00 AM EDT ALEX ([facility]) Blayne Mayfield MD: [address] [place] [address] 504, Ph. Attender: Blayne Mayfield MD [facility] Medical 04/04/2021 12:00:00 AM EDT ALEX ([facility]) Outpatient Attender: Sonia Han/[place] n[place] 04/02/2021 01:23:00 AM EDT [facility] ([facility]) Outpatient Attender: Sonia Han/[place]vin n[place] 04/01/2021 01:23:00 AM EDT [facility] ([facility]) Outpatient Attender: Sonia Han/[place]/Evin ndl 03/31/2021 01:23:00 AM EDT [facility] ([facility]) Blayne Mayfield MD: [address] [place] [address] 504, Ph. Attender: Blayne Mayfield MD [facility] Medical 03/28/2021 12:00:00 AM EDT ALEX ([facility]) Blayne Mayfield MD: [address] [place] [address]1 504, Ph. Attender: Blayne Mayfield MD [facility] Medical 03/28/2021 12:00:00 AM EDT ALEX ([facility]) Blayne Mayfield MD: [address] [place] [address] 504, Ph. Attender: Blayne Mayfield MD [facility] Medical 03/28/2021 12:00:00 AM EDT ALEX ([facility]) Blayne Mayfield MD: [address] [place] [address]0 504, Ph. Attender: Blayne Mayfield MD [facility] Medical 03/28/2021 12:00:00 AM EDT ALEX ([facility]) Blayne Mayfield MD: [address] [place] [address]1 504, Ph. Attender: Blayne Mayfield MD [facility] Medical 03/28/2021 12:00:00 AM EDT ALEX ([facility]) Blayne Mayfield MD: [address] [place] [address]1 504, Ph. Attender: Blayne Mayfield MD [facility] Medical 03/28/2021 12:00:00 AM EDT ALEX ([facility]) Blayne Mayfield MD: [address] [place] [address]0 504, Ph. Attender: Blayne Mayfield MD [facility] Medical 03/28/2021 12:00:00 AM EDT ALEX ([facility]) Blayne Mayfield MD: [address] [place] [address]0 504, Ph. Attender: Blayne Mayfield MD [facility] Medical 03/25/2021 12:00:00 AM EDT ALEX ([facility]) Blayne Mayfield MD: [address] [place] [address]4 504, Ph. Attender: Blayne Mayfield MD [facility] Medical 03/25/2021 12:00:00 AM EDT ALEX ([facility]) Blayne Mayfield MD: [address] [place] [address] 504, Ph. Attender: Blayne Mayfield MD [facility] Medical 03/25/2021 12:00:00 AM EDT ALEX ([facility]) Blayne Mayfield MD: [address] [place] [address]6 504, Ph. Attender: Blayne Mayfield MD [facility] Medical 03/25/2021 12:00:00 AM EDT ALEX ([facility]) Blayne Mayfield MD: [address] [place] [address]4 504, Ph. Attender: Blayne Mayfield MD [facility] Medical 03/25/2021 12:00:00 AM EDT ALEX ([facility]) Blayne Mayfield MD: [address] [place] [address]7 504, Ph. Attender: Blayne Mayfield MD [facility] Medical 03/25/2021 12:00:00 AM EDT ALEX ([facility]) Blayne Mayfield MD: [address] [place] [address]0 504, Ph. Attender: Blayne Mayfield MD [facility] Medical 03/25/2021 12:00:00 AM EDT ALEX ([facility]) Blayne Mayfield MD: [address] [place] [address]5 504, Ph. Attender: Blayne Mayfield MD [facility] Medical 03/25/2021 12:00:00 AM EDT ALEX ([facility]) Blayne Mayfield MD: [address] [place] [address]6 504, Ph. Attender: Blayne Mayfield MD [facility] Medical 03/18/2021 12:00:00 AM EDT ALEX ([facility]) Blayne Mayfield MD: [address] [place] [address]8 504, Ph. Attender: Blayne Mayfield MD [facility] Medical 03/18/2021 12:00:00 AM EDT ALEX ([facility]) Blayne Mayfield MD: [address] [place] [address]6 504, Ph. Attender: Blayne Mayfield MD [facility] Medical 03/18/2021 12:00:00 AM EDT ALEX ([facility]) Blayne Mayfield MD: [address] [place] [address] 504, Ph. Attender: Blayne Mayfield MD [facility] Medical 03/18/2021 12:00:00 AM EDT ALEX ([facility]) Blayne Mayfield MD: [address] [place] [address]6 504, Ph. Attender: Blayne Mayfield MD [facility] Medical 03/18/2021 12:00:00 AM EDT ALEX ([facility]) Blayne Mayfield MD: [address] [place] [address]8 504, Ph. Attender: Blayne Mayfield MD [facility] Medical 03/18/2021 12:00:00 AM EDT ALEX ([facility]) Blayne Mayfield MD: [address] [place] [address]2 504, Ph. Attender: Blayne Mayfield MD [facility] Medical 03/18/2021 12:00:00 AM EDT ALEX ([facility]) Blayne Mayfield MD: [address] [place] [address]6 504, Ph. Attender: Blayne Mayfield MD [facility] Medical 03/18/2021 12:00:00 AM EDT ALEX ([facility]) Blayne Mayfield MD: [address] [place] [address]8 504, Ph. Attender: Blayne Mayfield MD [facility] Medical 03/18/2021 12:00:00 AM EDT ALEX ([facility]) Blayne Mayfield MD: [address] [place] [address]2 504, Ph. Attender: Blayne Mayfield MD [facility] Medical 03/10/2021 12:00:00 AM EDT ALEX ([facility]) Blayne Mayfield MD: [address] [place] [address]4 504, Ph. Attender: Blayne Mayfield MD [facility] Medical 03/10/2021 12:00:00 AM EDT ALEX ([facility]) Blayne Mayfield MD: [address] [place] [address]8 504, Ph. Attender: Blayne Mayfield MD [facility] Medical 03/10/2021 12:00:00 AM EDT ALEX ([facility]) Blayne Mayfield MD: [address] [place] [address]1 504, Ph. Attender: Blayne Mayfield MD [facility] Medical 03/10/2021 12:00:00 AM EDT ALEX ([facility]) Blayne Mayfield MD: [address] [place] [address]8 504, Ph. Attender: Blayne Mayfield MD [facility] Medical 03/10/2021 12:00:00 AM EDT ALEX ([facility]) Blayne Mayfield MD: [address] [place] [address]4 504, Ph. Attender: Blayne Mayfield MD [facility] Medical 03/10/2021 12:00:00 AM EDT ALEX ([facility]) Blayne Mayfield MD: [address] [place] [address]2 504, Ph. Attender: Blayne Mayfield MD [facility] Medical 03/10/2021 12:00:00 AM EDT ALEX ([facility]) Blayne Mayfield MD: [address] [place] [address]3 504, Ph. Attender: Blayne Mayfield MD [facility] Medical 03/10/2021 12:00:00 AM EDT ALEX ([facility]) Blayne Mayfield MD: [address] [place] [address]1 504, Ph. Attender: Blayne Mayfield MD [facility] Medical 03/10/2021 12:00:00 AM EDT ALEX ([facility]) Blayne Mayfield MD: [address] [place] [address]8 504, Ph. Attender: Blayne Mayfield MD [facility] Medical 02/26/2021 12:00:00 AM EDT ALEX ([facility]) Blayne Mayfield MD: [address] [place] [address]1 504, Ph. Attender: Blayne Mayfield MD [facility] Medical 02/26/2021 12:00:00 AM EDT ALEX ([facility]) Blayne Mayfield MD: [address] [place] [address]0 504, Ph. Attender: Blayne Mayfield MD [facility] Medical 02/26/2021 12:00:00 AM EDT ALEX ([facility]) Blayne Mayfield MD: [address] [place] [address]3 504, Ph. Attender: Blayne Mayfield MD [facility] Medical 02/26/2021 12:00:00 AM EDT ALEX ([facility]) Blayne Mayfield MD: [address] [place] [address]0 504, Ph. Attender: Blayne Mayfield MD [facility] Medical 02/26/2021 12:00:00 AM EDT ALEX ([facility]) Blayne Mayfield MD: [address] [place] [address]3 504, Ph. Attender: Blayne Mayfield MD [facility] Medical 02/26/2021 12:00:00 AM EDT ALEX ([facility]) Blayne Mayfield MD: [address] [place] [address]7 504, Ph. Attender: Blyane Mayfield MD [facility] Medical 02/26/2021 12:00:00 AM EDT ALEX ([facility]) Blayne Mayfield MD: [address] [place] [address]2 504, Ph. Attender: Blayne Mayfield MD [facility] Medical 02/26/2021 12:00:00 AM EDT ALEX ([facility]) Blayne Mayfield MD: [address] [place] [address]6 504, Ph. Attender: Blayne Mayfield MD [facility] Medical 02/26/2021 12:00:00 AM EDT ALEX ([facility]) Blayne Mayfield MD: [address] [place] [address]8 504, Ph. Attender: Blayne Mayfield MD [facility] Medical 02/26/2021 12:00:00 AM EDT ALEX ([facility]) Blayne Mayfield MD: [address] [place] [address]8 504, Ph. Attender: Blayne Mayfield MD [facility] Medical 02/05/2021 12:00:00 AM EDT ALEX ([facility]) Blayne Mayfield MD: [address] [place] [address]1 504, Ph. Attender: Blayne Mayfield MD [facility] Medical 02/05/2021 12:00:00 AM EDT ALEX ([facility]) Blayne Mayfield MD: [address] [place] [address]7 504, Ph. Attender: Blayne Mayfield MD [facility] Medical 02/05/2021 12:00:00 AM EDT ALEX ([facility]) Blayne Mayfield MD: [address] [place] [address]2 504, Ph. Attender: Blayne Mayfield MD [facility] Medical 02/05/2021 12:00:00 AM EDT ALEX ([facility]) Blayne Mayfield MD: [address] [place] [address]4 504, Ph. Attender: Blayne Mayfield MD [facility] Medical 02/05/2021 12:00:00 AM EDT ALEX ([facility]) Blayne Mayfield MD: [address] [place] [address]8 504, Ph. Attender: Blayne Mayfield MD [facility] Medical 02/05/2021 12:00:00 AM EDT ALEX ([facility]) Blayne Mayfield MD: [address] [place] [address]9 504, Ph. Attender: Blayne Mayfield MD [facility] Medical 02/05/2021 12:00:00 AM EDT ALEX ([facility]) Blayne Mayfield MD: [address] [place] [address]2 504, Ph. Attender: Blayne Mayfield MD [facility] Medical 02/05/2021 12:00:00 AM EDT ALEX ([facility]) Blayne Mayfield MD: [address] [place] [address]5 504, Ph. Attender: Blayne Mayfield MD [facility] Medical 02/05/2021 12:00:00 AM EDT ALEX ([facility]) Blayne Mayfield MD: [address] [place] [address]8 504, Ph. Attender: Blayne Mayfield MD [facility] Medical 02/05/2021 12:00:00 AM EDT ALEX ([facility]) Blayne Mayfield MD: [address] [place] [address]5 504, Ph. Attender: Blayne Mayfield MD [facility] Medical 02/05/2021 12:00:00 AM EDT ALEX ([facility]) Blayne Mayfield MD: [address] [place] [address]6 504, Ph. Attender: Blayne Mayfield MD [facility] Medical 01/22/2021 12:00:00 AM EDT ALEX ([facility]) Blayne Mayfield MD: [address] [place] [address]5 504, Ph. Attender: Blayne Mayfield MD [facility] Medical 01/22/2021 12:00:00 AM EDT ALEX ([facility]) Blayne Mayfield MD: [address] [place] [address]2 504, Ph. Attender: Blayne Mayfield MD [facility] Medical 01/22/2021 12:00:00 AM EDT ALEX ([facility]) Blayne Mayfield MD: [address] [place] [address]3 504, Ph. Attender: Blayne Mayfield MD [facility] Medical 01/22/2021 12:00:00 AM EDT ALEX ([facility]) Blayne Mayfield MD: [address] [place] [address]9 504, Ph. Attender: Blayne Mayfield MD [facility] Medical 01/22/2021 12:00:00 AM EDT ALEX ([facility]) Blayne Mayfield MD: [address] [place] [address]0 504, Ph. Attender: Blayne Mayfield MD [facility] Medical 01/22/2021 12:00:00 AM EDT ALEX ([facility]) Blayne Mayfield MD: [address] [place] [address]-1 504, Ph. Attender: Blayne Mayfield MD [facility] Medical 01/22/2021 12:00:00 AM EDT ALEX ([facility]) Blayne Mayfield MD: [address] [place] [address]9 504, Ph. Attender: Blayne Mayfield MD [facility] Medical 01/22/2021 12:00:00 AM EDT ALEX ([facility]) Blayne Mayfield MD: [address] [place] [address]3 504, Ph. Attender: Blayne Mayfield MD [facility] Medical 01/22/2021 12:00:00 AM EDT ALEX ([facility]) Blayne Mayfield MD: [address] [place] [address]2 504, Ph. Attender: Blayne Mayfield MD [facility] Medical 01/22/2021 12:00:00 AM EDT ALEX ([facility]) Blayne Mayfield MD: [address] [place] [address]6 504, Ph. Attender: Blayne Mayfield MD [facility] Medical 01/22/2021 12:00:00 AM EDT ALEX ([facility]) Blayne Mayfield MD: [address] [place] [address]-6 504, Ph. Attender: Blayne Mayfield MD [facility] Medical 01/22/2021 12:00:00 AM EDT ALEX ([facility]) Blayne Mayfield MD: [address] [place] [address]4 504, Ph. Attender: Blayne Mayfield MD [facility] Medical 01/08/2021 12:00:00 AM EDT ALEX ([facility]) Blayne Mayfield MD: [address] [place] [address]9 504, Ph. Attender: Blayne Mayfield MD [facility] Medical 01/08/2021 12:00:00 AM EDT ALEX ([facility]) Blayne Mayfield MD: [address] [place] [address]-1 504, Ph. Attender: Blayne Mayfield MD [facility] Medical 01/08/2021 12:00:00 AM EDT ALEX ([facility]) Blayne Mayfield MD: [address] [place] [address]6 504, Ph. Attender: Blayne Mayfield MD [facility] Medical 01/08/2021 12:00:00 AM EDT ALEX ([facility]) Blayne Mayfield MD: [address] [place] [address]0 504, Ph. Attender: Blayne Mayfield MD [facility] Medical 01/08/2021 12:00:00 AM EDT ALEX ([facility]) Blayne Mayfield MD: [address] [place] [address]6 504, Ph. Attender: Blayne Mayfield MD [facility] Medical 01/08/2021 12:00:00 AM EDT ALEX ([facility]) Blayne Mayfield MD: [address] [place] [address]0 504, Ph. Attender: Blayne Mayfield MD [facility] Medical 01/08/2021 12:00:00 AM EDT ALEX ([facility]) Blayne Mayfield MD: [address] [place] [address]5 504, Ph. Attender: Blayne Mayfield MD [facility] Medical 01/08/2021 12:00:00 AM EDT ALEX ([facility]) Blayne Mayfield MD: [address] [place] [address]0 504, Ph. Attender: Blayne Mayfield MD [facility] Medical 01/08/2021 12:00:00 AM EDT ALEX ([facility]) Blayne Mayfield MD: [address] [place] [address]9 504, Ph. Attender: Blayne Mayfield MD [facility] Medical 01/08/2021 12:00:00 AM EDT ALEX ([facility]) Blayne Mayfield MD: [address] [place] [address]1 504, Ph. Attender: Blayne Mayfield MD [facility] Medical 01/08/2021 12:00:00 AM EDT ALEX ([facility]) Blayne Mayfield MD: [address] [place] [address]3 504, Ph. Attender: Blayne Mayfield MD [facility] Medical 01/08/2021 12:00:00 AM EDT ALEX ([facility]) Blayne Mayfield MD: [address] [place] [address] 504, Ph. Attender: Blayne Mayfield MD [facility] Medical 01/08/2021 12:00:00 AM EDT ALEX ([facility]) Blayne Mayfield MD: [address] [place] [address]-6 504, Ph. Attender: Blayne Mayfield MD [facility] Medical 01/08/2021 12:00:00 AM EDT ALEX ([facility]) Blayne Mayfield MD: [address] [place] [address]5 504, Ph. Attender: Blayne Mayfield MD [facility] Medical 12/25/2020 12:00:00 AM EDT ALEX ([facility]) Blayne Mayfield MD: [address] [place] [address]-4 504, Ph. Attender: Blayne Mayfield MD [facility] Medical 12/25/2020 12:00:00 AM EDT ALEX ([facility]) Blayne Mayfield MD: [address] [place] [address], Ph. Attender: Blayne Mayfield MD [facility] Medical 12/25/2020 12:00:00 AM EDT [facility] ([facility]) Blayne Mayfield MD: [address] [place] [address], Ph. Attender: lBayne Mayfield MD [facility] Medical 12/25/2020 12:00:00 AM EDT A[facility] ([facility]) Blayne Mayfield MD: [address] [place] [address], Ph. Attender: Blayne Mayfield MD [facility] Medical 12/25/2020 12:00:00 AM EDT [facility] ([facility]) Blayne Mayfield MD: [address] [place] [address]0 [address], Ph. Attender: Blayne Mayfield MD [facility] Medical 12/25/2020 12:00:00 AM EDT [facility] ([facility]) Blayne Mayfield MD: [address] [place] [address]9 504, Ph. Attender: Blayne Mayfield MD [facility] Medical 12/25/2020 12:00:00 AM EDT [facility] ([facility]) Blayne Mayfield MD: [address] [place] [address]0 504, Ph. Attender: Blayne Mayfield MD [facility] Medical 12/25/2020 12:00:00 AM EDT [facility] ([facility]) Blayne Mayfield MD: [address] [place] [address], Ph. Attender: Blayne Mayfield MD [facility] Medical 12/25/2020 12:00:00 AM EDT [facility] ([facility]) Blayne Mayfield MD: [address] [place] [address]0 [address], Ph. Attender: Blayne Mayfield MD [facility] Medical 12/25/2020 12:00:00 AM EDT [facility] ([facility]) Blayne Mayfield MD: [address] [place] [address], Ph. Attender: Blayne Mayfield MD [facility] Medical 12/25/2020 12:00:00 AM EDT [facility] ([facility]) Blayne Mayfield MD: [address] [place] [address], Ph. Attender: Blayne Mayfield MD [facility] Medical 12/25/2020 12:00:00 AM EDT [facility] ([facility]) Blayne Mayfield MD: [address] [place] [address], Ph. Attender: Blayne Mayfield MD [facility] Medical 12/25/2020 12:00:00 AM EDT [facility] ([facility]) Blayne Mayfield MD: [address] [place] [address], Ph. Attender: Blayne Mayfield MD [facility] Medical 12/25/2020 12:00:00 AM EDT [facility] ([facility]) Blayne Mayfield MD: [address] [place] [address], Ph. Attender: Blayne Mayfield MD [facility] Medical 12/11/2020 12:00:00 AM EDT [facility] ([facility]) Blayne Mayfield MD: [address] [place] [address], Ph. Attender: Blayne Mayfield MD [facility] Medical 12/11/2020 12:00:00 AM EDT [facility] ([facility]) Blayne Mayfield MD: [address] [place] [address], Ph. Attender: Blayne Mayfield MD [facility] Medical 12/11/2020 12:00:00 AM EDT [facility] ([facility]) Blayne Mayfield MD: [address] [place] [address], Ph. Attender: Blayne Mayfield MD [facility] Medical 12/11/2020 12:00:00 AM EDT [facility] ([facility]) Blayne Mayfield MD: [address] [place] [address], Ph. Attender: Blayne Mayfield MD [facility] Medical 12/11/2020 12:00:00 AM EDT [facility] ([facility]) Blayne Mayfield MD: [address] [place] [address], Ph. Attender: Blayne Mayfield MD [facility] Medical 12/11/2020 12:00:00 AM EDT [facility] ([facility]) Blayne Mayfield MD: [address] [place] [address], Ph. Attender: Blayne Mayfield MD [facility] Medical 12/11/2020 12:00:00 AM EDT [facility] ([facility]) Blayne Mayfield MD: [address] [place] [address], Ph. Attender: Blayne Mayfield MD [facility] Medical 12/11/2020 12:00:00 AM EDT [facility] ([facility]) Blayne Mayfield MD: [address] [place] [address], Ph. Attender: Blayne Mayfield MD [facility] Medical 12/11/2020 12:00:00 AM EDT [facility] ([facility]) Blayne Mayfield MD: [address] [place] [address], Ph. Attender: Blayne Mayfield MD [facility] Medical 12/11/2020 12:00:00 AM EDT [facility] ([facility]) Blayne Mayfield MD: [address] [place] [address], Ph. Attender: Blayne Mayfield MD [facility] Medical 12/11/2020 12:00:00 AM EDT [facility] ([facility]) Blayne Mayfield MD: [address] [place] [address], Ph. Attender: Blayne Mayfield MD [facility] Medical 12/11/2020 12:00:00 AM EDT [facility] ([facility]) Blayne Mayfield MD: [address] [place] [address], Ph. Attender: Blayne Mayfield MD [facility] Medical 12/11/2020 12:00:00 AM EDT [facility] ([facility]) Blayne Mayfield MD: [address] [place] [address], Ph. Attender: Blayne Mayfield MD [facility] Medical 12/11/2020 12:00:00 AM EDT [facility] ([facility]) Blayne Mayfield MD: [address] [place] [address], Ph. Attender: Blayne Mayfield MD [facility] Medical 12/11/2020 12:00:00 AM EDT [facility] ([facility]) Blayne Mayfield MD: [address] [place] [address], Ph. Attender: Blayne Mayfield MD [facility] Medical 11/27/2020 12:00:00 AM EDT [facility] ([facility]) Blayne Mayfield MD: [address] [place] [address], Ph. Attender: Blayne Mayfield MD [facility] Medical 11/27/2020 12:00:00 AM EDT ALEX ([facility]) Blayne Mayfield MD: [address] [place] [address], Ph. Attender: Blayne Mayfield MD [facility] Medical 11/27/2020 12:00:00 AM EDT [facility] ([facility]) Blayne Mayfield MD: [address] [place] [address], Ph. Attender: Blayne Mayfield MD [facility] Medical 11/27/2020 12:00:00 AM EDT [facility] ([facility]) Blayne Mayfield MD: [address] [place] [address], Ph. Attender: Blayne Mayfield MD [facility] Medical 11/27/2020 12:00:00 AM EDT [facility] ([facility]) Blayne Mayfield MD: [address] [place] [address], Ph. Attender: Blayne Mayfield MD [facility] Medical 11/27/2020 12:00:00 AM EDT [facility] ([facility]) Blayne Mayfield MD: [address] [place] [address], Ph. Attender: Blayne Mayfield MD [facility] Medical 11/27/2020 12:00:00 AM EDT [facility] ([facility]) Blayne Mayfield MD: [address] [place] [address], Ph. Attender: Blayne Mayfield MD [facility] Medical 11/27/2020 12:00:00 AM EDT [facility] ([facility]) Blayne Mayfield MD: [address] [place] [address], Ph. Attender: Blayne Mayfield MD [facility] Medical 11/27/2020 12:00:00 AM EDT [facility] ([facility]) Blayne Mayfield MD: [address] [place] [address], Ph. Attender: Blayne Mayfield MD [facility] Medical 11/27/2020 12:00:00 AM EDT [facility] ([facility]) Blayne Mayfield MD: [address], [place] [address], Ph. Attender: Blayne Mayfield MD [facility] Medical 11/27/2020 12:00:00 AM EDT [facility] ([facility]) Blayne Mayfield MD: [address] [place] [address], Ph. Attender: Blayne Mayfield MD [facility] Medical 11/27/2020 12:00:00 AM EDT [facility] ([facility]) Blayne Mayfield MD: [address] [place] [address], Ph. Attender: Blayne Mayfield MD [facility] Medical 11/27/2020 12:00:00 AM EDT A[facility] ([facility]) Blayne Mayfield MD: [address] [place] [address], Ph. Attender: Blayne Mayfield MD [facility] Medical 11/27/2020 12:00:00 AM EDT ALEX ([facility]) Blayne Mayfield MD: [address] [place] [address], Ph. Attender: Blayne Mayfield MD [facility] Medical 11/27/2020 12:00:00 AM EDT [facility]LEX ([facility]) Blayne Mayfield MD: [address] [place] [address], Ph. Attender: Blayne Mayfield MD [facility] Medical 11/27/2020 12:00:00 AM EDT [facility] ([facility]) Blayne Mayfield MD: [address] [place] [address], Ph. Attender: Blayne Mayfield MD [facility] Medical 11/25/2020 12:00:00 AM EDT [facility]LEX ([facility]) Blayne Mayfield MD: [address] [place] [address], Ph. Attender: Blayne Mayfield MD [facility] Medical 11/25/2020 12:00:00 AM EDT ALEX ([facility]) Blayne Mayfield MD: [address] [place] [address], Ph. Attender: Blayne Mayfield MD [facility] Medical 11/25/2020 12:00:00 AM EDT ALEX ([facility]) Blayne Mayfield MD: [address] [place] [address], Ph. Attender: Blayne Mayfield MD [facility] Medical 11/25/2020 12:00:00 AM EDT ALEX ([facility]) Blayne Mayfield MD: [address] [place] [address], Ph. Attender: Blayne Mayfield MD [facility] Medical 11/25/2020 12:00:00 AM EDT ALEX ([facility]) Blayne Mayfield MD: [address] [place] [address], Ph. Attender: Blayne Mayfield MD [facility] Medical 11/25/2020 12:00:00 AM EDT [facility] ([facility]) Blayne Mayfield MD: [address] [place] [address], Ph. Attender: Blayne Mayfield MD [facility] Medical 11/25/2020 12:00:00 AM EDT ALEX ([facility]) Blayne Mayfield MD: [address] [place] [address], Ph. Attender: Blayne Mayfield MD [facility] Medical 11/25/2020 12:00:00 AM EDT ALEX ([facility]) Blayne Mayfield MD: [address] [place] [address], Ph. Attender: Blayne Mayfield MD [facility] Medical 11/25/2020 12:00:00 AM EDT ALEX ([facility]) Blayne Mayfield MD: [address] [place] [address], Ph. Attender: Blayne Mayfield MD [facility] Medical 11/25/2020 12:00:00 AM EDT ALEX ([facility]) Blayne Mayfield MD: [address] [place] [address], Ph. Attender: Blayne Mayfield MD [facility] Medical 11/25/2020 12:00:00 AM EDT ALEX ([facility]) Blayne Mayfield MD: [address] [place] [address], Ph. Attender: Blayne Mayfield MD [facility] Medical 11/25/2020 12:00:00 AM EDT ALEX ([facility]) Blayne Mayfield MD: [address] [place] [address], Ph. Attender: Blayne Mayfield MD [facility] Medical 11/25/2020 12:00:00 AM EDT ALEX ([facility]) Blayne Mayfield MD: [address] [place] [address]1 504, Ph. Attender: Blayne Mayfield MD [facility] Medical 11/25/2020 12:00:00 AM EDT ALEX ([facility]) Blayne Mayfield MD: [address] [place] [address], Ph. Attender: Blayne Mayfield MD [facility] Medical 11/25/2020 12:00:00 AM EDT ALEX ([facility]) Blayne Mayfield MD: [address] [place] [address], Ph. Attender: Blayne Mayfield MD [facility] Medical 11/25/2020 12:00:00 AM EDT ALEX ([facility]) Blayne Mayfiedl MD: [address] [place] [address], Ph. Attender: Blayne Mayfield MD [facility] Medical 11/25/2020 12:00:00 AM EDT ALEX ([facility]) Blayne Mayfield MD: [address] [place] [address], Ph. Attender: Blayne Mayfield MD [facility] Medical 09/19/2020 12:00:00 AM EST [facility] ([facility]) Blayne Mayfield MD: [address] [place] [address], Ph. Attender: Blayne Mayfield MD [facility] Medical 09/19/2020 12:00:00 AM EST ALEX ([facility]) Blayne Mayfield MD: [address] [place] [address], Ph. Attender: Blayne Mayfield MD [facility] Medical 09/19/2020 12:00:00 AM EST [facility] ([facility]) Blayne Mayfield MD: [address] [place] [address], Ph. Attender: Blayne Mayfield MD [facility] Medical 09/19/2020 12:00:00 AM EST [facility] ([facility]) Blayne Mayfield MD: [address] [place] [address] 504, Ph. Attender: Blayne Mayfield MD [facility] Medical 09/19/2020 12:00:00 AM EST [facility] ([facility]) Blayne Mayfield MD: [address] [place] [address] 504, Ph. Attender: Blayne Mayfield MD [facility] Medical 09/19/2020 12:00:00 AM EST [facility] ([facility]) Blayne Mayfield MD: [address] [place] [address] 504, Ph. Attender: Blayne Mayfield MD [facility] Medical 09/19/2020 12:00:00 AM EST [facility] ([facility]) Blayne Mayfield MD: [address] [place] [address]2 504, Ph. Attender: Blayne Mayfield MD [facility] Medical 09/19/2020 12:00:00 AM EST [facility] ([facility]) Blayne Mayfield MD: [address] [place] [address] 504, Ph. Attender: Blayne Mayfield MD [facility] Medical 09/19/2020 12:00:00 AM EST [facility] ([facility]) Blayne Mayfield MD: [address] [place] [address]9 504, Ph. Attender: Blayne Mayfield MD [facility] Medical 09/19/2020 12:00:00 AM EST [facility] ([facility]) Blayne Mayfield MD: [address] [place] [address] 504, Ph. Attender: Blayne Mayfield MD [facility] Medical 09/19/2020 12:00:00 AM EST [facility] ([facility]) Blayne Mayfield MD: [address] [place] [address]0 504, Ph. Attender: Blayne Mayfield MD [facility] Medical 09/19/2020 12:00:00 AM EST [facility] ([facility]) Blayne Mayfield MD: [address] [place] [address] 504, Ph. Attender: Blayne Mayfield MD [facility] Medical 09/19/2020 12:00:00 AM EST [facility] ([facility]) Blayne Mayfield MD: [address] [place] [address] 504, Ph. Attender: Blayne Mayfield MD [facility] Medical 09/19/2020 12:00:00 AM EST [facility] ([facility]) Blayne Mayfield MD: [address] [place] [address] 504, Ph. Attender: Blayne Mayfield MD [facility] Medical 09/19/2020 12:00:00 AM EST [facility] ([facility]) Blayne Mayfield MD: [address] [place] [address] 504, Ph. Attender: Blayne Mayfield MD [facility] Medical 09/19/2020 12:00:00 AM EST [facility] ([facility]) Blayne Mayfield MD: [address] [place] [address] 504, Ph. Attender: Blayne Mayfield MD [facility] Medical 09/19/2020 12:00:00 AM EST [facility] ([facility]) Blayne Mayfield MD: [address] [place] [address]1 504, Ph. Attender: Blayne Mayfield MD [facility] Medical 09/19/2020 12:00:00 AM EST [facility] ([facility]) Blayne Mayfield MD: [address] [place] [address]5 504, Ph. Attender: Blayne Mayfield MD [facility] Medical 05/08/2020 12:00:00 AM EDT [facility] ([facility]) Blayne Mayfield MD: [address] [place] [address], Ph. Attender: Blayne Mayfield MD [facility] Medical 05/08/2020 12:00:00 AM EDT [facility] ([facility]) Blayne Mayfield MD: [address] [place] [address] 504, Ph. Attender: Blayne Mayfield MD [facility] Medical 05/08/2020 12:00:00 AM EDT ALEX ([facility]) Blayne Mayfield MD: [address] [place] [address] 504, Ph. Attender: Blayne Mayfield MD [facility] Medical 05/08/2020 12:00:00 AM EDT [facility]LEX ([facility]) Blayne Mayfield MD: [address] [place] [address], Ph. Attender: Blayne Mayfield MD [facility] Medical 05/08/2020 12:00:00 AM EDT [facility]LEX ([facility]) Blayne Mayfield MD: [address] [place] [address]4 504, Ph. Attender: Blayne Mayfield MD [facility] Medical 05/08/2020 12:00:00 AM EDT [facility]LEX ([facility]) Blayne Mayfield MD: [address] [place] [address] 504, Ph. Attender: Blayne Mayfield MD [facility] Medical 05/08/2020 12:00:00 AM EDT [facility] ([facility]) Blayne Mayfield MD: [address] [place] [address] 504, Ph. Attender: Blayne Mayfield MD [facility] Medical 05/08/2020 12:00:00 AM EDT [facility]LEX ([facility]) Blayne Mayfield MD: [address] [place] [address]1 504, Ph. Attender: Blayne Mayfield MD [facility] Medical 05/08/2020 12:00:00 AM EDT [facility] ([facility]) Blayne Mayfield MD: [address] [place] [address]4 504, Ph. Attender: Blayne Mayfield MD [facility] Medical 05/08/2020 12:00:00 AM EDT [facility]LEX ([facility]) Blayne Mayfield MD: [address] [place] [address]0 504, Ph. Attender: Blayne Mayfield MD [facility] Medical 05/08/2020 12:00:00 AM EDT [facility] ([facility]) Blayne Mayfield MD: [address] [place] [address]1 504, Ph. Attender: Blayne Mayfield MD [facility] Medical 05/08/2020 12:00:00 AM EDT [facility] ([facility]) Blayne Mayfield MD: [address] [place] [address] 504, Ph. Attender: Blayne Mayfield MD [facility] Medical 05/08/2020 12:00:00 AM EDT [facility] ([facility]) Blayne Mayfield MD: [address] [place] [address]8 504, Ph. Attender: Blayne Mayfield MD [facility] Medical 05/08/2020 12:00:00 AM EDT [facility]LEX ([facility]) Blayne Mayfield MD: [address] [place] [address]5 504, Ph. Attender: Blayne Mayfield MD [facility] Medical 05/08/2020 12:00:00 AM EDT [facility]ELX ([facility]) Blayne Mayfield MD: [address] [place] [address]6 504, Ph. Attender: Blayne Mayfield MD [facility] Medical 05/08/2020 12:00:00 AM EDT ALEX ([facility]) Blayne Mayfield MD: [address] [place] [address] 504, Ph. Attender: Blayne Mayfield MD [facility] Medical 05/08/2020 12:00:00 AM EDT [facility]LEX ([facility]) Blayne Mayfield MD: [address] [place] [address]0 504, Ph. Attender: Blayne Mayfield MD [facility] Medical 05/08/2020 12:00:00 AM EDT [facility] ([facility]) Blayne Mayfield MD: [address] [place] [address] 504, Ph. Attender: Blayne Mayfield MD [facility] Medical 05/08/2020 12:00:00 AM EDT [facility] ([facility]) Outpatient Attender: HILARIO ALEJANDRA Physical Therapy 04/25/2020 03:30:00 PM EDT [facility] ([facility]) Outpatient Attender: Blayne Mayfield MD 04/09/2020 08:31:05 AM EDT [facility] Outpatient Attender: Blayne Mayfield MD 04/09/2020 08:31:02 AM EDT [facility] Outpatient Attender: Blayne Mayfield MD FP 03/28/2020 05:19:00 PM EDT [facility] Outpatient Attender: Blayne Mayfield MD FP 03/27/2020 03:39:01 PM EDT [facility] Outpatient Attender: Blayne Mayfield MD FP 03/26/2020 02:59:01 PM EDT [facility] Outpatient Attender: HILARIO ALEJANDRA Physical Therapy 03/20/2020 02:00:00 PM EDT [facility] ([facility]) Outpatient Attender: Blayne Mayfield MD 03/14/2020 11:23:00 AM EDT [facility] Outpatient Attender: Blayne Mayfield MD 03/11/2020 08:53:01 AM EDT [facility] Immunizations Vaccine Date Status Description Data Source(s) COVID-19, mRNA, LNP-S, PF, 100 mcg/0.5 mL dose 11/22/2020 12 :00:00 AM EDT completed 11/22/2020 [place] ([facility]) COVID-19, mRNA, LNP-S, PF, 100 mcg/0.5 mL dose 11/22/2020 12 :00:00 AM EDT completed 11/22/2020 [facility]) COVID-19, mRNA, LNP-S, PF, 100 mcg/0.5 mL dose 11/22/2020 12 :00:00 AM EDT completed 11/22/2020 [facility]) COVID-19, mRNA, LNP-S, PF, 100 mcg/0.5 mL dose 11/22/2020 12 :00:00 AM EDT completed 11/22/2020 [place] ([facility]) COVID-19, mRNA, LNP-S, PF, 100 mcg/0.5 mL dose 11/22/2020 12 :00:00 AM EDT completed 11/22/2020 [place] ([facility]) COVID-19, mRNA, LNP-S, PF, 100 mcg/0.5 mL dose 11/22/2020 12 :00:00 AM EDT completed 11/22/2020 [place] ([facility]) COVID-19, mRNA, LNP-S, PF, 100 mcg/0.5 mL dose 11/22/2020 12 :00:00 AM EDT completed 11/22/2020 [place] ([facility]) COVID-19, mRNA, LNP-S, PF, 100 mcg/0.5 mL dose 11/22/2020 12 :00:00 AM EDT completed 11/22/2020 [place] ([facility]) COVID-19, mRNA, LNP-S, PF, 100 mcg/0.5 mL dose 11/22/2020 12 :00:00 AM EDT completed 11/22/2020 [place] ([facility]) COVID-19, mRNA, LNP-S, PF, 100 mcg/0.5 mL dose 11/22/2020 12 :00:00 AM EDT completed 11/22/2020 [facility]) COVID-19, mRNA, LNP-S, PF, 100 mcg/0.5 mL dose 11/22/2020 12 :00:00 AM EDT completed 11/22/2020 [place] ([facility]) COVID-19, mRNA, LNP-S, PF, 100 mcg/0.5 mL dose 11/22/2020 12 :00:00 AM EDT completed 11/22/2020 [place] ([facility]) COVID-19, mRNA, LNP-S, PF, 100 mcg/0.5 mL dose 11/22/2020 12 :00:00 AM EDT completed 11/22/2020 [facility] ([facility]) COVID-19, mRNA, LNP-S, PF, 100 mcg/0.5 mL dose 11/22/2020 12 :00:00 AM EDT completed 11/22/2020 [facility] ([facility]) COVID-19, mRNA, LNP-S, PF, 100 mcg/0.5 mL dose 11/22/2020 12 :00:00 AM EDT completed 11/22/2020 [facility]) COVID-19, mRNA, LNP-S, PF, 100 mcg/0.5 mL dose 11/22/2020 12 :00:00 AM EDT completed 11/22/2020 [facility] ([facility]) COVID-19, mRNA, LNP-S, PF, 100 mcg/0.5 mL dose 11/22/2020 12 :00:00 AM EDT completed 11/22/2020 [facility] ([facility]) COVID-19 VACCINE Moderna 11/22/2020 12:00:00 AM EDT completed [facility] Vaccine Series Complete: YESThis Data wa s Submitted to [facility] Via [employer]. COVID-19 VACC,MRNA(MODERNA)/PF 11/22/2020 12:00:00 AM EDT completed Farrah Kramer COVID-19, mRNA, LNP-S, PF, 100 mcg/0.5 mL dose 10/23/2020 12 :00:00 AM EDT completed 10/23/2020 [place] ([facility]) COVID-19, mRNA, LNP-S, PF, 100 mcg/0.5 mL dose 10/23/2020 12 :00:00 AM EDT completed 10/23/2020 [place] ([facility]) COVID-19, mRNA, LNP-S, PF, 100 mcg/0.5 mL dose 10/23/2020 12 :00:00 AM EDT completed 10/23/2020 [place] ([facility]) COVID-19, mRNA, LNP-S, PF, 100 mcg/0.5 mL dose 10/23/2020 12 :00:00 AM EDT completed 10/23/2020 [place] ([facility]) COVID-19, mRNA, LNP-S, PF, 100 mcg/0.5 mL dose 10/23/2020 12 :00:00 AM EDT completed 10/23/2020 [place] ([facility]) COVID-19, mRNA, LNP-S, PF, 100 mcg/0.5 mL dose 10/23/2020 12 :00:00 AM EDT completed 10/23/2020 [place] ([facility]) COVID-19, mRNA, LNP-S, PF, 100 mcg/0.5 mL dose 10/23/2020 12 :00:00 AM EDT completed 10/23/2020 [facility] ([facility]) COVID-19, mRNA, LNP-S, PF, 100 mcg/0.5 mL dose 10/23/2020 12 :00:00 AM EDT completed 10/23/2020 [facility] ([facility]) COVID-19, mRNA, LNP-S, PF, 100 mcg/0.5 mL dose 10/23/2020 12 :00:00 AM EDT completed 10/23/2020 [place] ([facility]) COVID-19, mRNA, LNP-S, PF, 100 mcg/0.5 mL dose 10/23/2020 12 :00:00 AM EDT completed 10/23/2020 [place] ([facility]) COVID-19, mRNA, LNP-S, PF, 100 mcg/0.5 mL dose 10/23/2020 12 :00:00 AM EDT completed 10/23/2020 [place] [facility] [facility], mRNA, LNP-S, PF, 100 mcg/0.5 mL dose 10/23/2020 12 :00:00 AM EDT completed 10/23/2020 [place] ([facility]) COVID-19, mRNA, LNP-S, PF, 100 mcg/0.5 mL dose 10/23/2020 12 :00:00 AM EDT completed 10/23/2020 [place] ([facility]) COVID-19, mRNA, LNP-S, PF, 100 mcg/0.5 mL dose 10/23/2020 12 :00:00 AM EDT completed 10/23/2020 [place] ([facility]) COVID-19, mRNA, LNP-S, PF, 100 mcg/0.5 mL dose 10/23/2020 12 :00:00 AM EDT completed 10/23/2020 [place] ([facility]) COVID-19, mRNA, LNP-S, PF, 100 mcg/0.5 mL dose 10/23/2020 12 :00:00 AM EDT completed 10/23/2020 [place] ([facility]) COVID-19, mRNA, LNP-S, PF, 100 mcg/0.5 mL dose 10/23/2020 12 :00:00 AM EDT completed 10/23/2020 [place] ([facility]) COVID-19 VACCINE Moderna 10/23/2020 12:00:00 AM EDT completed [facility] Vaccine Series Complete: NOThis Data was Submitted to [facility] Via [employer]. COVID-19 VACCINE, [id number], LNP-S (MODERNA)/PF 10/23/2020 1 [...] salmeterol 0.05 MG/ACTUAT Dry Powder Inhaler [facility] ([facility]) 60 ACTUAT Fluticasone propionate 0.25 MG /ACTUAT / salmeterol 0.05 MG/ACTUAT Dry Powder Inhaler fluticasone 250 mcg-salmeterol 50 mcg/dose blistr powdr for inhalation USE DIRECTED fluticasone 250 mcg-salmeterol 50 mcg/do se blistr powdr for inhalation USE DIRECTED 11/25/2020 12:00:00 AM EDT completed 60 ACTUAT fluticason e propionate 0.25 MG/ACTUAT / salmeterol 0.05 MG/ACTUAT Dry Powder Inhaler [facility] ([facility]) 60 ACTUAT Fluticasone propionate 0.25 MG /ACTUAT / salmeterol 0.05 MG/ACTUAT Dry Powder Inhaler fluticasone 250 mcg-salmeterol 50 mcg/dose blistr powdr for inhalation USE DIRECTED fluticasone 250 mcg-salmeterol 50 mcg/do se blistr powdr for inhalation USE DIRECTED 11/25/2020 12:00:00 AM EDT completed 60 ACTUAT fluticason e propionate 0.25 MG/ACTUAT / salmeterol 0.05 MG/ACTUAT Dry Powder Inhaler [facility] ([facility]) 60 ACTUAT Fluticasone propionate 0.25 MG /ACTUAT / salmeterol 0.05 MG/ACTUAT Dry Powder Inhaler fluticasone 250 mcg-salmeterol 50 mcg/dose blistr powdr for inhalation USE DIRECTED fluticasone 250 mcg-salmeterol 50 mcg/do se blistr powdr for inhalation USE DIRECTED 11/25/2020 12:00:00 AM EDT completed 60 ACTUAT fluticason e propionate 0.25 MG/ACTUAT / salmeterol 0.05 MG/ACTUAT Dry Powder Inhaler [facility] ([facility]) 60 ACTUAT Fluticasone propionate 0.25 MG /ACTUAT / salmeterol 0.05 MG/ACTUAT Dry Powder Inhaler fluticasone 250 mcg-salmeterol 50 mcg/dose blistr powdr for inhalation USE DIRECTED fluticasone 250 mcg-salmeterol 50 mcg/do se blistr powdr for inhalation USE DIRECTED 11/25/2020 12:00:00 AM EDT completed 60 ACTUAT fluticason e propionate 0.25 MG/ACTUAT / salmeterol 0.05 MG/ACTUAT Dry Powder Inhaler [facility] ([facility]) 60 ACTUAT Fluticasone propionate 0.25 MG /ACTUAT / salmeterol 0.05 MG/ACTUAT Dry Powder Inhaler fluticasone 250 mcg-salmeterol 50 mcg/dose blistr powdr for inhalation USE DIRECTED fluticasone 250 mcg-salmeterol 50 mcg/do se blistr powdr for inhalation USE DIRECTED 11/25/2020 12:00:00 AM EDT completed 60 ACTUAT fluticason e propionate 0.25 MG/ACTUAT / salmeterol 0.05 MG/ACTUAT Dry Powder Inhaler [facility] ([facility]) 60 ACTUAT Fluticasone propionate 0.25 MG /ACTUAT / salmeterol 0.05 MG/ACTUAT Dry Powder Inhaler fluticasone 250 mcg-salmeterol 50 mcg/dose blistr powdr for inhalation USE DIRECTED fluticasone 250 mcg-salmeterol 50 mcg/do se blistr powdr for inhalation USE DIRECTED 11/25/2020 12:00:00 AM EDT completed 60 ACTUAT fluticason e propionate 0.25 MG/ACTUAT / salmeterol 0.05 MG/ACTUAT Dry Powder Inhaler [facility] ([facility]) 60 ACTUAT Fluticasone propionate 0.25 MG /ACTUAT / salmeterol 0.05 MG/ACTUAT Dry Powder Inhaler fluticasone 250 mcg-salmeterol 50 mcg/dose blistr powdr for inhalation USE DIRECTED fluticasone 250 mcg-salmeterol 50 mcg/do se blistr powdr for inhalation USE DIRECTED 11/25/2020 12:00:00 AM EDT completed 60 ACTUAT fluticason e propionate 0.25 MG/ACTUAT / salmeterol 0.05 MG/ACTUAT Dry Powder Inhaler [facility] ([facility]) 60 ACTUAT Fluticasone propionate 0.25 MG /ACTUAT / salmeterol 0.05 MG/ACTUAT Dry Powder Inhaler fluticasone 250 mcg-salmeterol 50 mcg/dose blistr powdr for inhalation USE DIRECTED fluticasone 250 mcg-salmeterol 50 mcg/do se blistr powdr for inhalation USE DIRECTED 11/25/2020 12:00:00 AM EDT completed 60 ACTUAT fluticason e propionate 0.25 MG/ACTUAT / salmeterol 0.05 MG/ACTUAT Dry Powder Inhaler [facility] ([facility]) 60 ACTUAT Fluticasone propionate 0.25 MG /ACTUAT / salmeterol 0.05 MG/ACTUAT Dry Powder Inhaler fluticasone 250 mcg-salmeterol 50 mcg/dose blistr powdr for inhalation USE DIRECTED fluticasone 250 mcg-salmeterol 50 mcg/do se blistr powdr for inhalation USE DIRECTED 11/25/2020 12:00:00 AM EDT completed 60 ACTUAT fluticason e propionate 0.25 MG/ACTUAT / salmeterol 0.05 MG/ACTUAT Dry Powder Inhaler [facility] ([facility]) 60 ACTUAT Fluticasone propionate 0.25 MG /ACTUAT / salmeterol 0.05 MG/ACTUAT Dry Powder Inhaler fluticasone 250 mcg-salmeterol 50 mcg/dose blistr powdr for inhalation USE DIRECTED fluticasone 250 mcg-salmeterol 50 mcg/do se blistr powdr for inhalation USE DIRECTED 11/25/2020 12:00:00 AM EDT completed 60 ACTUAT fluticason e propionate 0.25 MG/ACTUAT / salmeterol 0.05 MG/ACTUAT Dry Powder Inhaler [facility] ([facility]) 60 ACTUAT Fluticasone propionate 0.25 MG /ACTUAT / salmeterol 0.05 MG/ACTUAT Dry Powder Inhaler fluticasone 250 mcg-salmeterol 50 mcg/dose blistr powdr for inhalation USE DIRECTED fluticasone 250 mcg-salmeterol 50 mcg/do se blistr powdr for inhalation USE DIRECTED 11/25/2020 12:00:00 AM EDT completed 60 ACTUAT fluticason e propionate 0.25 MG/ACTUAT / salmeterol 0.05 MG/ACTUAT Dry Powder Inhaler [facility] ([facility]) 60 ACTUAT Fluticasone propionate 0.25 MG /ACTUAT / salmeterol 0.05 MG/ACTUAT Dry Powder Inhaler fluticasone 250 mcg-salmeterol 50 mcg/dose blistr powdr for inhalation USE DIRECTED fluticasone 250 mcg-salmeterol 50 mcg/do se blistr powdr for inhalation USE DIRECTED 11/25/2020 12:00:00 AM EDT completed 60 ACTUAT fluticason e propionate 0.25 MG/ACTUAT / salmeterol 0.05 MG/ACTUAT Dry Powder Inhaler [facility] ([facility]) 60 ACTUAT Fluticasone propionate 0.25 MG /ACTUAT / salmeterol 0.05 MG/ACTUAT Dry Powder Inhaler fluticasone 250 mcg-salmeterol 50 mcg/dose blistr powdr for inhalation USE DIRECTED fluticasone 250 mcg-salmeterol 50 mcg/do se blistr powdr for inhalation USE DIRECTED 11/25/2020 12:00:00 AM EDT completed 60 ACTUAT fluticason e propionate 0.25 MG/ACTUAT / salmeterol 0.05 MG/ACTUAT Dry Powder Inhaler [facility] ([facility]) 60 ACTUAT Fluticasone propionate 0.25 MG /ACTUAT / salmeterol 0.05 MG/ACTUAT Dry Powder Inhaler fluticasone 250 mcg-salmeterol 50 mcg/dose blistr powdr for inhalation USE DIRECTED fluticasone 250 mcg-salmeterol 50 mcg/do se blistr powdr for inhalation USE DIRECTED 11/25/2020 12:00:00 AM EDT completed 60 ACTUAT fluticason e propionate 0.25 MG/ACTUAT / salmeterol 0.05 MG/ACTUAT Dry Powder Inhaler [facility] ([facility]) 60 ACTUAT Fluticasone propionate 0.25 MG /ACTUAT / salmeterol 0.05 MG/ACTUAT Dry Powder Inhaler fluticasone 250 mcg-salmeterol 50 mcg/dose blistr powdr for inhalation USE DIRECTED fluticasone 250 mcg-salmeterol 50 mcg/do se blistr powdr for inhalation USE DIRECTED 11/25/2020 12:00:00 AM EDT completed 60 ACTUAT fluticason e propionate 0.25 MG/ACTUAT / salmeterol 0.05 MG/ACTUAT Dry Powder Inhaler [facility] ([facility]) 60 ACTUAT Fluticasone propionate 0.25 MG /ACTUAT / salmeterol 0.05 MG/ACTUAT Dry Powder Inhaler fluticasone 250 mcg-salmeterol 50 mcg/dose blistr powdr for inhalation USE DIRECTED fluticasone 250 mcg-salmeterol 50 mcg/do se blistr powdr for inhalation USE DIRECTED 11/25/2020 12:00:00 AM EDT completed 60 ACTUAT fluticason e propionate 0.25 MG/ACTUAT / salmeterol 0.05 MG/ACTUAT Dry Powder Inhaler [place] ([facility]) 150 mg 11/21/2020 12:00:00 AM [...] 03/2020 12:00:00 AM EDT active [facility] ( [facility]) gabapentin 300 MG Oral Capsule Gabapentin 03/20/2020 12:00:00 AM EDT ORAL active [facility] ([facility]) 300 mg 03/20/2020 12:00:00 AM [...] tobramycin 3 MG/ML Ophtha lmic Solution [place] ([facility]) gabapentin 300 MG Oral Capsule gabapenti [...] completed gabapentin 300 MG Oral Capsule [place] ([facility]) Acetaminophen 325 MG Oral Tablet acetami nophen 325 mg tablet TAKE ONE TABLET BY MOUTH EVERY 6 HOURS NEEDED FOR PAIN acetaminophen 325 mg tablet TAKE ONE TABLET BY MOUTH EVERY 6 HOURS NEEDED FOR PAIN completed acetaminophen 325 MG Oral Tablet [place] ([facility]) Escitalopram 20 MG Oral Tablet escitalopram 20 mg tabl et escitalopram 20 mg tablet completed escitalopram 20 MG Oral Tablet [place] ([facility]) Prednisone 20 MG Oral Tablet prednisone [...] completed prednisone 20 MG Oral Tablet [place] ([facility]) Acetaminophen 325 MG Oral Tablet acetami nophen 325 mg tablet TAKE ONE TABLET BY MOUTH EVERY 6 HOURS NEEDED FOR PAIN acetaminophen 325 mg tablet TAKE ONE TABLET BY MOUTH EVERY 6 HOURS NEEDED FOR PAIN completed acetaminophen 325 MG Oral Tablet [facility] ([facility]) methylprednisolone 4 mg tablets in a dos e pack TAKE DOSE BRIJESH DIRECTED ON SHEET [id number] completed methylpre dnisolone 4 mg tablets in a dose pack [place] ([facility]) Ibuprofen 600 MG Oral Tablet ibuprofen 6 00 mg tablet TAKE ONE TABLET BY MOUTH TWICE A DAY ibuprofen 600 mg tablet TAKE ONE TABLET BY MOUTH TWICE A DAY completed ibuprofen 600 MG Ora l Tablet [place] ([facility]) Escitalopram 10 MG Oral Tablet escitalop ac 10 mg tablet TAKE ONE TABLET BY MOUTH EVERY DAY escitalopram 10 mg tablet TAKE ONE TABLET BY MOUTH EVERY DAY completed escitalopram 1 0 MG Oral Tablet [place] ([facility]) Tobramycin 3 MG/ML Ophthalmic Solution t obramycin 0.3 % eye drops INSTILL 2 DROPS INTO AFFECTED EYE S THREE TIMES A DAY FOR 7 DAYS tobramycin 0.3 % eye drops INSTILL 2 DROPS INTO AFFECTED EYE S THREE TIMES A DAY FOR 7 DAYS completed tobramycin 3 MG/ML Ophtha lmic Solution [place] ([facility]) Tobramycin 3 MG/ML Ophthalmic Solution t obramycin 0.3 % eye drops INSTILL 2 DROPS INTO AFFECTED EYE S THREE TIMES A DAY FOR 7 DAYS tobramycin 0.3 % eye drops INSTILL 2 DROPS INTO AFFECTED EYE S THREE TIMES A DAY FOR 7 DAYS completed tobramycin 3 MG/ML Ophtha lmic Solution [place] ([facility]) Escitalopram 10 MG Oral Tablet escitalop ac 10 mg tablet TAKE ONE TABLET BY MOUTH EVERY DAY escitalopram 10 mg tablet TAKE ONE TABLET BY MOUTH EVERY DAY completed escitalopram 1 0 MG Oral Tablet [place] ([facility]) meloxicam 7.5 MG Oral Tablet meloxicam 7 .5 mg tablet TAKE ONE TABLET BY MOUTH EVERY DAY meloxicam 7.5 mg tablet TAKE ONE TABLET BY MOUTH EVERY DAY completed meloxicam 7.5 MG Oral Tablet [place] ([facility]) Prednisone 20 MG Oral Tablet prednisone [...] completed prednisone 20 MG Oral Tablet [place] ([facility]) Amoxicillin 875 MG / Clavulanate 125 MG Oral Tablet amoxicillin 875 mg-potassium clavulanate 125 mg tablet TAKE ONE TABLET BY MOUTH TWICE A DAY FOR 14 DAYS amoxicillin 875 mg-potassium clavulanate 125 mg tablet TAKE ONE TABLET BY MOUTH TWICE A DAY FOR 14 DAYS completed amoxicillin 875 MG / clavulanate 125 MG Oral Tablet [facility] ([facility]) Acetaminophen 325 MG Oral Tablet acetami nophen 325 mg tablet TAKE ONE TABLET BY MOUTH EVERY 6 HOURS NEEDED FOR PAIN acetaminophen 325 mg tablet TAKE ONE TABLET BY MOUTH EVERY 6 HOURS NEEDED FOR PAIN completed acetaminophen 325 MG Oral Tablet [facility] ([facility]) gabapentin 300 MG Oral Capsule [...] completed gabapentin 300 MG Oral Capsule [facility] ([facility]) Sulfamethoxazole 800 MG / Trimethoprim 1 60 MG Oral Tablet sulfamethoxazole 800 mg-trimethoprim 160 mg tablet TAKE 1 TABLET BY MOUTH TWO TIMES A DAY FOR 7 DAYS sulfamethoxazole 800 mg-trimethoprim 160 mg tablet TAKE 1 TABLET BY MOUTH TWO TIMES A DAY FOR 7 DAYS completed sulfamethoxazole 800 MG / trimethoprim 160 MG Oral Tablet [place] ([facility]) tizanidine 2 MG Oral Tablet tizanidine 2 mg tablet TAKE ONE TABLET BY MOUTH EVERY 8 HOURS NEEDED FOR SPASMS tizanidine 2 mg tablet TAKE ONE TABLET B Y MOUTH EVERY 8 HOURS NEEDED FOR SPASMS completed tizanidine 2 MG Oral Tablet [place] ([facility]) Amoxicillin 875 MG / Clavulanate 125 MG Oral Tablet amoxicillin 875 mg-potassium clavulanate 125 mg tablet TAKE ONE TABLET BY MOUTH TWICE A DAY FOR 14 DAYS amoxicillin 875 mg-potassium clavulanate 125 mg tablet TAKE ONE TABLET BY MOUTH TWICE A DAY FOR 14 DAYS completed amoxicillin 875 MG / clavulanate 125 MG Oral Tablet [facility] ([facility]) Escitalopram 10 MG Oral Tablet escitalop ac 10 mg tablet TAKE ONE TABLET BY MOUTH EVERY DAY escitalopram 10 mg tablet TAKE ONE TABLET BY MOUTH EVERY DAY completed escitalopram 1 0 MG Oral Tablet [facility] ([facility]) Fluzone Quad 8513-4322 60 mcg (15 mcg x 4)/0.5 mL intramuscular susp. INJECT DIRECTED [id number] completed influe nza A virus A/[facility] Mykel (H3N2) antigen 0.03 MG/ML / influenza A virus A/ (H1N1) antigen 0.03 MG/ML / influenza B virus B/[facility] antigen 0.03 MG/ML / influenza B virus B/Val antigen 0.03 MG/ML Injectable Suspension [facility] ([facility]) Furosemide 20 MG Oral Tablet furosemide 20 mg tablet TAKE ONE TABLET BY MOUTH EVERY DAY furosemide 20 mg tablet TAKE ONE TABLET BY MOUTH EVERY DAY completed furosemide 20 MG Oral Tablet [place] ([facility]) Sulfamethoxazole 800 MG / Trimethoprim 1 60 MG Oral Tablet sulfamethoxazole 800 mg-trimethoprim 160 mg tablet TAKE 1 TABLET BY MOUTH TWO TIMES A DAY FOR 7 DAYS sulfamethoxazole 800 mg-trimethoprim 160 mg tablet TAKE 1 TABLET BY MOUTH TWO TIMES A DAY FOR 7 DAYS completed sulfamethoxazole 800 MG / trimethoprim 160 MG Oral Tablet [place] ([facility]) Furosemide 20 MG Oral Tablet furosemide 20 mg tablet TAKE ONE TABLET BY MOUTH EVERY DAY furosemide 20 mg tablet TAKE ONE TABLET BY MOUTH EVERY DAY completed furosemide 20 MG Oral Tablet [place] ([facility]) Amoxicillin 875 MG / Clavulanate 125 MG Oral Tablet amoxicillin 875 mg-potassium clavulanate 125 mg tablet TAKE ONE TABLET BY MOUTH TWICE A DAY FOR 14 DAYS amoxicillin 875 mg-potassium clavulanate 125 mg tablet TAKE ONE TABLET BY MOUTH TWICE A DAY FOR 14 DAYS completed amoxicillin 875 MG / clavulanate 125 MG Oral Tablet [place] ([facility]) methylprednisolone 4 mg tablets in a dos e pack TAKE DOSE BRIJESH DIRECTED ON SHEET [id number] completed methylpre dnisolone 4 mg tablets in a dose pack [place] ([facility]) Amoxicillin 875 MG / Clavulanate 125 MG Oral Tablet amoxicillin 875 mg-potassium clavulanate 125 mg tablet TAKE ONE TABLET BY MOUTH TWICE A DAY FOR 14 DAYS amoxicillin 875 mg-potassium clavulanate 125 mg tablet TAKE ONE TABLET BY MOUTH TWICE A DAY FOR 14 DAYS completed amoxicillin 875 MG / clavulanate 125 MG Oral Tablet [place] ([facility]) meloxicam 7.5 MG Oral Tablet meloxicam 7 .5 mg tablet TAKE ONE TABLET BY MOUTH EVERY DAY meloxicam 7.5 mg tablet TAKE ONE TABLET BY MOUTH EVERY DAY completed meloxicam 7.5 MG Oral Tablet [place] ([facility]) gabapentin 300 MG Oral Capsule gabapenti [...] completed gabapentin 300 MG Oral Capsule [facility] ([facility]) gabapentin 300 MG Oral Capsule [...] completed gabapentin 300 MG Oral Capsule [facility] ([facility]) Tobramycin 3 MG/ML Ophthalmic Solution t obramycin 0.3 % eye drops INSTILL 2 DROPS INTO AFFECTED EYE S THREE TIMES A DAY FOR 7 DAYS tobramycin 0.3 % eye drops INSTILL 2 DROPS INTO AFFECTED EYE S THREE TIMES A DAY FOR 7 DAYS completed tobramycin 3 MG/ML Ophtha lmic Solution [place] ([facility]) Tobramycin 3 MG/ML Ophthalmic Solution t obramycin 0.3 % eye drops INSTILL 2 DROPS INTO AFFECTED EYE S THREE TIMES A DAY FOR 7 DAYS tobramycin 0.3 % eye drops INSTILL 2 DROPS INTO AFFECTED EYE S THREE TIMES A DAY FOR 7 DAYS completed tobramycin 3 MG/ML Ophtha lmic Solution [place] ([facility]) terbinafine 250 MG Oral Tablet terbinafi ne HCl 250 mg tablet TAKE 1 TABLET BY MOUTH ONCE DAILY terbinafine HCl 250 mg tablet TAKE 1 TAB LET BY MOUTH ONCE DAILY completed terbinafine 250 MG Oral Tablet [place] ([facility]) methylprednisolone 4 mg tablets in a dos e pack TAKE DOSE BRIJESH DIRECTED ON SHEET [id number] completed methylpre dnisolone 4 mg tablets in a dose pack [facility] ([facility]) methylprednisolone 4 mg tablets in a dos e pack TAKE DOSE BRIJESH DIRECTED ON SHEET [id number] completed methylpre dnisolone 4 mg tablets in a dose pack [facility] ([facility]) methylprednisolone 4 mg tablets in a dos e pack TAKE DOSE BRIJESH DIRECTED ON SHEET [id number] completed methylpre dnisolone 4 mg tablets in a dose pack [place] ([facility]) Fluzone Quad 60 mcg (15 mcg x 4)/0.5 mL intramuscular susp. INJECT DIRECTED [id number] completed influe nza A virus A/[facility]opez (H3N2) antigen 0.03 MG/ML / influenza A virus A/ (H1N1) antigen 0.03 MG/ML / influenza B virus B/[facility] antigen 0.03 MG/ML / influenza B virus B/[place] antigen 0.03 MG/ML Injectable Suspension [facility] ([facility]) Tobramycin 3 MG/ML Ophthalmic Solution t obramycin 0.3 % eye drops INSTILL 2 DROPS INTO AFFECTED EYE S THREE TIMES A DAY FOR 7 DAYS tobramycin 0.3 % eye drops INSTILL 2 DROPS INTO AFFECTED EYE S THREE TIMES A DAY FOR 7 DAYS completed tobramycin 3 MG/ML Ophtha lmic Solution [facility] ([facility]) meloxicam 7.5 MG Oral Tablet meloxicam 7 .5 mg tablet TAKE ONE TABLET BY MOUTH EVERY DAY meloxicam 7.5 mg tablet TAKE ONE TABLET BY MOUTH EVERY DAY completed meloxicam 7.5 MG Oral Tablet [place] ([facility]) Naproxen 500 MG Oral Tablet naproxen 500 mg tablet TAKE ONE TABLET BY MOUTH EVERY 12 HOURS FOR 7 DAYS naproxen 500 mg tablet TAKE ONE TABLET B Y MOUTH EVERY 12 HOURS FOR 7 DAYS completed na proxen 500 MG Oral Tablet [facility] ([facility]) Ibuprofen 600 MG Oral Tablet ibuprofen 6 00 mg tablet TAKE ONE TABLET BY MOUTH TWICE A DAY ibuprofen 600 mg tablet TAKE ONE TABLET BY MOUTH TWICE A DAY completed ibuprofen 600 MG Ora l Tablet [place] ([facility]) Fluzone Quad 60 mcg (15 mcg x 4)/0.5 mL intramuscular susp. INJECT DIRECTED [id number] completed Fluzon e Quad 60 mcg (15 mcg x 4)/0.5 mL intramuscular susp. [facility] ([facility]) tizanidine 2 MG Oral Tablet tizanidine 2 mg tablet TAKE ONE TABLET BY MOUTH EVERY 8 HOURS NEEDED FOR SPASMS tizanidine 2 mg tablet TAKE ONE TABLET B Y MOUTH EVERY 8 HOURS NEEDED FOR SPASMS completed tizanidine 2 MG Oral Tablet [facility] ([facility]) doxycycline hyclate 100 MG Oral Tablet d oxycycline hyclate 100 mg tablet TAKE ONE TABLET BY MOUTH TWICE A DAY doxycycline hyclate 100 mg tablet TAKE O NE TABLET BY MOUTH TWICE A DAY completed doxycycline hyclate 100 MG Oral Tablet [facility] ([facility]) Escitalopram 20 MG Oral Tablet escitalopram 20 mg tabl et escitalopram 20 mg tablet completed escitalopram 20 MG Oral Tablet [facility] ([facility]) doxycycline hyclate 100 MG Oral Tablet d oxycycline hyclate 100 mg tablet TAKE ONE TABLET BY MOUTH TWICE A DAY doxycycline hyclate 100 mg tablet TAKE O NE TABLET BY MOUTH TWICE A DAY completed doxycycline hyclate 100 MG Oral Tablet [facility] ([facility]) Naproxen 500 MG Oral Tablet naproxen 500 mg tablet TAKE ONE TABLET BY MOUTH EVERY 12 HOURS FOR 7 DAYS naproxen 500 mg tablet TAKE ONE TABLET B Y MOUTH EVERY 12 HOURS FOR 7 DAYS completed na proxen 500 MG Oral Tablet [place] ([facility]) doxycycline hyclate 100 MG Oral Tablet d oxycycline hyclate 100 mg tablet TAKE ONE TABLET BY MOUTH TWICE A DAY doxycycline hyclate 100 mg tablet TAKE O NE TABLET BY MOUTH TWICE A DAY completed doxycycline hyclate 100 MG Oral Tablet [facility] ([facility]) Amoxicillin 875 MG / Clavulanate 125 MG Oral Tablet amoxicillin 875 mg-potassium clavulanate 125 mg tablet TAKE ONE TABLET BY MOUTH TWICE A DAY FOR 14 DAYS amoxicillin 875 mg-potassium clavulanate 125 mg tablet TAKE ONE TABLET BY MOUTH TWICE A DAY FOR 14 DAYS completed amoxicillin 875 MG / clavulanate 125 MG Oral Tablet [facility] ([facility]) Omeprazole 20 MG Delayed Release Oral Ca psule omeprazole 20 mg capsule,delayed release TAKE ONE CAPSULE BY MOUTH EVERY DAY omeprazole 20 mg capsule,delayed release TAKE ONE CAPSULE BY MOUTH EVERY DAY completed omeprazole 20 MG Delayed Release Oral Capsule [facility] ([facility]) meloxicam 7.5 MG Oral Tablet meloxicam 7 .5 mg tablet TAKE ONE TABLET BY MOUTH EVERY DAY meloxicam 7.5 mg tablet TAKE ONE TABLET BY MOUTH EVERY DAY completed meloxicam 7.5 MG Oral Tablet [facility] ([facility]) Ibuprofen 600 MG Oral Tablet ibuprofen 6 00 mg tablet TAKE ONE TABLET BY MOUTH TWICE A DAY ibuprofen 600 mg tablet TAKE ONE TABLET BY MOUTH TWICE A DAY completed ibuprofen 600 MG Ora l Tablet [facility] ([facility]) Omeprazole 20 MG Delayed Release Oral Ca psule omeprazole 20 mg capsule,delayed release TAKE ONE CAPSULE BY MOUTH EVERY DAY omeprazole 20 mg capsule,delayed release TAKE ONE CAPSULE BY MOUTH EVERY DAY completed omeprazole 20 MG Delayed Release Oral Capsule [place] ([facility]) Fluzone Quad 60 mcg (15 mcg x 4)/0.5 mL intramuscular susp. INJECT DIRECTED [id number] completed Fluzon e Quad 60 mcg (15 mcg x 4)/0.5 mL intramuscular susp. [facility] ([facility]) gabapentin 300 MG Oral Capsule [...] THREE completed gabapentin 300 MG Oral Capsule [place] ([facility]) Tobramycin 3 MG/ML Ophthalmic Solution t obramycin 0.3 % eye drops INSTILL 2 DROPS INTO AFFECTED EYE S THREE TIMES A DAY FOR 7 DAYS tobramycin 0.3 % eye drops INSTILL 2 DROPS INTO AFFECTED EYE S THREE TIMES A DAY FOR 7 DAYS completed tobramycin 3 MG/ML Ophtha lmic Solution [facility]) methylprednisolone 4 mg tablets in a dos e pack TAKE DOSE BRIJESH DIRECTED ON SHEET [id number] completed methylpre dnisolone 4 mg tablets in a dose pack [place] ([facility]) Escitalopram 20 MG Oral Tablet escitalopram 20 mg tabl et escitalopram 20 mg tablet completed escitalopram 20 MG Oral Tablet [place] ([facility]) Ibuprofen 600 MG Oral Tablet ibuprofen 6 00 mg tablet TAKE ONE TABLET BY MOUTH TWICE A DAY ibuprofen 600 mg tablet TAKE ONE TABLET BY MOUTH TWICE A DAY completed ibuprofen 600 MG Ora l Tablet [facility]) methylprednisolone 4 mg tablets in a dos e pack TAKE DOSE BRIJESH DIRECTED ON SHEET [id number] completed methylpre dnisolone 4 mg tablets in a dose pack [place] ([facility]) Amoxicillin 875 MG / Clavulanate 125 MG Oral Tablet amoxicillin 875 mg-potassium clavulanate 125 mg tablet TAKE ONE TABLET BY MOUTH TWICE A DAY FOR 14 DAYS amoxicillin 875 mg-potassium clavulanate 125 mg tablet TAKE ONE TABLET BY MOUTH TWICE A DAY FOR 14 DAYS completed amoxicillin 875 MG / clavulanate 125 MG Oral Tablet [facility] ([facility]) Acetaminophen 325 MG Oral Tablet acetami nophen 325 mg tablet TAKE ONE TABLET BY MOUTH EVERY 6 HOURS NEEDED FOR PAIN acetaminophen 325 mg tablet TAKE ONE TABLET BY MOUTH EVERY 6 HOURS NEEDED FOR PAIN completed acetaminophen 325 MG Oral Tablet ALEX ([facility]) terbinafine 250 MG Oral Tablet terbinafi ne HCl 250 mg tablet TAKE 1 TABLET BY MOUTH ONCE DAILY terbinafine HCl 250 mg tablet TAKE 1 TAB LET BY MOUTH ONCE DAILY completed terbinafine 250 MG Oral Tablet [place] ([facility]) Prednisone 20 MG Oral Tablet prednisone [...] completed prednisone 20 MG Oral Tablet ALEX ([facility]) Amoxicillin 875 MG / Clavulanate 125 MG Oral Tablet amoxicillin 875 mg-potassium clavulanate 125 mg tablet TAKE ONE TABLET BY MOUTH TWICE A DAY FOR 14 DAYS amoxicillin 875 mg-potassium clavulanate 125 mg tablet TAKE ONE TABLET BY MOUTH TWICE A DAY FOR 14 DAYS completed amoxicillin 875 MG / clavulanate 125 MG Oral Tablet ALEX ([facility]) tizanidine 2 MG Oral Tablet tizanidine 2 mg tablet TAKE ONE TABLET BY MOUTH EVERY 8 HOURS NEEDED FOR SPASMS tizanidine 2 mg tablet TAKE ONE TABLET B Y MOUTH EVERY 8 HOURS NEEDED FOR SPASMS completed tizanidine 2 MG Oral Tablet ALEX ([facility]) Naproxen 500 MG Oral Tablet naproxen 500 mg tablet TAKE ONE TABLET BY MOUTH EVERY 12 HOURS FOR 7 DAYS naproxen 500 mg tablet TAKE ONE TABLET B Y MOUTH EVERY 12 HOURS FOR 7 DAYS completed na proxen 500 MG Oral Tablet ALEX ([facility]) Fluzone Quad 2852-9889 60 mcg (15 mcg x 4)/0.5 mL intramuscular susp. INJECT DIRECTED [id number] completed influe nza A virus A/[place]opez (H3N2) antigen 0.03 MG/ML / influenza A virus A/ (H1N1) antigen 0.03 MG/ML / influenza B virus B/[facility] antigen 0.03 MG/ML / influenza B virus B/Val antigen 0.03 MG/ML Injectable Suspension ALEX ([facility]) Acetaminophen 325 MG Oral Tablet acetami nophen 325 mg tablet TAKE ONE TABLET BY MOUTH EVERY 6 HOURS NEEDED FOR PAIN acetaminophen 325 mg tablet TAKE ONE TABLET BY MOUTH EVERY 6 HOURS NEEDED FOR PAIN completed acetaminophen 325 MG Oral Tablet ALEX ([facility]) Acetaminophen 325 MG Oral Tablet acetami nophen 325 mg tablet TAKE ONE TABLET BY MOUTH EVERY 6 HOURS NEEDED FOR PAIN acetaminophen 325 mg tablet TAKE ONE TABLET BY MOUTH EVERY 6 HOURS NEEDED FOR PAIN completed acetaminophen 325 MG Oral Tablet ALEX ([facility]) tizanidine 2 MG Oral Tablet tizanidine 2 mg tablet TAKE ONE TABLET BY MOUTH EVERY 8 HOURS NEEDED FOR SPASMS tizanidine 2 mg tablet TAKE ONE TABLET B Y MOUTH EVERY 8 HOURS NEEDED FOR SPASMS completed tizanidine 2 MG Oral Tablet ALEX ([facility]) doxycycline hyclate 100 MG Oral Tablet d oxycycline hyclate 100 mg tablet TAKE ONE TABLET BY MOUTH TWICE A DAY doxycycline hyclate 100 mg tablet TAKE O NE TABLET BY MOUTH TWICE A DAY completed doxycycline hyclate 100 MG Oral Tablet ALEX ([facility]) Tobramycin 3 MG/ML Ophthalmic Solution t obramycin 0.3 % eye drops INSTILL 2 DROPS INTO AFFECTED EYE S THREE TIMES A DAY FOR 7 DAYS tobramycin 0.3 % eye drops INSTILL 2 DROPS INTO AFFECTED EYE S THREE TIMES A DAY FOR 7 DAYS completed tobramycin 3 MG/ML Ophtha lmic Solution ALEX ([facility]) Prednisone 20 MG Oral Tablet prednisone [...] completed prednisone 20 MG Oral Tablet ALEX ([facility]) methylprednisolone 4 mg tablets in a dos e pack TAKE DOSE BRIJESH DIRECTED ON SHEET [id number] completed methylpre dnisolone 4 mg tablets in a dose pack ALEX ([facility]) gabapentin 300 MG Oral Capsule [...] completed gabapentin 300 MG Oral Capsule ALEX ([facility]) Acetaminophen 325 MG Oral Tablet acetami nophen 325 mg tablet TAKE ONE TABLET BY MOUTH EVERY 6 HOURS NEEDED FOR PAIN acetaminophen 325 mg tablet TAKE ONE TABLET BY MOUTH EVERY 6 HOURS NEEDED FOR PAIN completed acetaminophen 325 MG Oral Tablet [place] ([facility]) Escitalopram 10 MG Oral Tablet escitalop ac 10 mg tablet TAKE ONE TABLET BY MOUTH EVERY DAY escitalopram 10 mg tablet TAKE ONE TABLET BY MOUTH EVERY DAY completed escitalopram 1 0 MG Oral Tablet [place] ([facility]) sildenafil 100 MG Oral Tablet sildenafil 100 mg tablet Take 1 tablet every day by oral route as needed. sildenafil 100 mg tablet Take 1 tablet e very day by oral route as needed. 1 completed sildenafil 100 MG Oral Tablet [place] ([facility]) meloxicam 7.5 MG Oral Tablet meloxicam 7 .5 mg tablet TAKE ONE TABLET BY MOUTH EVERY DAY meloxicam 7.5 mg tablet TAKE ONE TABLET BY MOUTH EVERY DAY completed meloxicam 7.5 MG Oral Tablet [place] ([facility]) Furosemide 20 MG Oral Tablet furosemide 20 mg tablet TAKE ONE TABLET BY MOUTH EVERY DAY furosemide 20 mg tablet TAKE ONE TABLET BY MOUTH EVERY DAY completed furosemide 20 MG Oral Tablet [place] ([facility]) tizanidine 2 MG Oral Tablet tizanidine 2 mg tablet TAKE ONE TABLET BY MOUTH EVERY 8 HOURS NEEDED FOR SPASMS tizanidine 2 mg tablet TAKE ONE TABLET B Y MOUTH EVERY 8 HOURS NEEDED FOR SPASMS completed tizanidine 2 MG Oral Tablet ALEX ([facility]) Fluzone Quad [id number] 60 mcg (15 mcg x 4)/0.5 mL intramuscular susp. INJECT DIRECTED [id number] completed Fluzon e Quad [id number] 60 mcg (15 mcg x 4)/0.5 mL intramuscular susp. ALEX ([facility]) terbinafine 250 MG Oral Tablet terbinafi ne HCl 250 mg tablet TAKE 1 TABLET BY MOUTH ONCE DAILY terbinafine HCl 250 mg tablet TAKE 1 TAB LET BY MOUTH ONCE DAILY completed terbinafine 250 MG Oral Tablet [facility] ([facility]) Furosemide 20 MG Oral Tablet furosemide 20 mg tablet TAKE ONE TABLET BY MOUTH EVERY DAY furosemide 20 mg tablet TAKE ONE TABLET BY MOUTH EVERY DAY completed furosemide 20 MG Oral Tablet [facility] ([facility]) tizanidine 2 MG Oral Tablet tizanidine 2 mg tablet TAKE ONE TABLET BY MOUTH EVERY 8 HOURS NEEDED FOR SPASMS tizanidine 2 mg tablet TAKE ONE TABLET B Y MOUTH EVERY 8 HOURS NEEDED FOR SPASMS completed tizanidine 2 MG Oral Tablet [place] ([facility]) methylprednisolone 4 mg tablets in a dos e pack TAKE DOSE BRIJESH DIRECTED ON SHEET [id number] completed methylpre dnisolone 4 mg tablets in a dose pack [place] ([facility]) meloxicam 7.5 MG Oral Tablet meloxicam 7 .5 mg tablet TAKE ONE TABLET BY MOUTH EVERY DAY meloxicam 7.5 mg tablet TAKE ONE TABLET BY MOUTH EVERY DAY completed meloxicam 7.5 MG Oral Tablet [place] ([facility]) Amoxicillin 875 MG / Clavulanate 125 MG Oral Tablet amoxicillin 875 mg-potassium clavulanate 125 mg tablet TAKE ONE TABLET BY MOUTH TWICE A DAY FOR 14 DAYS amoxicillin 875 mg-potassium clavulanate 125 mg tablet TAKE ONE TABLET BY MOUTH TWICE A DAY FOR 14 DAYS completed amoxicillin 875 MG / clavulanate 125 MG Oral Tablet ALEX ([facility]) gabapentin 300 MG Oral Capsule [...] completed gabapentin 300 MG Oral Capsule ALEX ([facility]) Naproxen 500 MG Oral Tablet naproxen 500 mg tablet TAKE ONE TABLET BY MOUTH EVERY 12 HOURS FOR 7 DAYS naproxen 500 mg tablet TAKE ONE TABLET B Y MOUTH EVERY 12 HOURS FOR 7 DAYS completed na proxen 500 MG Oral Tablet [place] ([facility]) Naproxen 500 MG Oral Tablet naproxen 500 mg tablet TAKE ONE TABLET BY MOUTH EVERY 12 HOURS FOR 7 DAYS naproxen 500 mg tablet TAKE ONE TABLET B Y MOUTH EVERY 12 HOURS FOR 7 DAYS completed na proxen 500 MG Oral Tablet [facility] ([facility]) Sulfamethoxazole 800 MG / Trimethoprim 1 60 MG Oral Tablet sulfamethoxazole 800 mg-trimethoprim 160 mg tablet TAKE 1 TABLET BY MOUTH TWO TIMES A DAY FOR 7 DAYS sulfamethoxazole 800 mg-trimethoprim 160 mg tablet TAKE 1 TABLET BY MOUTH TWO TIMES A DAY FOR 7 DAYS completed sulfamethoxazole 800 MG / trimethoprim 160 MG Oral Tablet ALEX ([facility]) Fluzone Quad [id number] 60 mcg (15 mcg x 4)/0.5 mL intramuscular susp. INJECT DIRECTED [id number] completed influe nza A virus A/[facility]opez (H3N2) antigen 0.03 MG/ML / influenza A virus A/ (H1N1) antigen 0.03 MG/ML / influenza B virus B/[facility] antigen 0.03 MG/ML / influenza B virus B/[place] antigen 0.03 MG/ML Injectable Suspension ALEX ([facility]) Amoxicillin 875 MG / Clavulanate 125 MG Oral Tablet amoxicillin 875 mg-potassium clavulanate 125 mg tablet TAKE ONE TABLET BY MOUTH TWICE A DAY FOR 14 DAYS amoxicillin 875 mg-potassium clavulanate 125 mg tablet TAKE ONE TABLET BY MOUTH TWICE A DAY FOR 14 DAYS completed amoxicillin 875 MG / clavulanate 125 MG Oral Tablet ALEX ([facility]) Sulfamethoxazole 800 MG / Trimethoprim 1 60 MG Oral Tablet sulfamethoxazole 800 mg-trimethoprim 160 mg tablet TAKE 1 TABLET BY MOUTH TWO TIMES A DAY FOR 7 DAYS sulfamethoxazole 800 mg-trimethoprim 160 mg tablet TAKE 1 TABLET BY MOUTH TWO TIMES A DAY FOR 7 DAYS completed sulfamethoxazole 800 MG / trimethoprim 160 MG Oral Tablet [facility] ([facility]) Escitalopram 10 MG Oral Tablet escitalop ac 10 mg tablet TAKE ONE TABLET BY MOUTH EVERY DAY escitalopram 10 mg tablet TAKE ONE TABLET BY MOUTH EVERY DAY completed escitalopram 1 0 MG Oral Tablet [place] ([facility]) Tobramycin 3 MG/ML Ophthalmic Solution t obramycin 0.3 % eye drops INSTILL 2 DROPS INTO AFFECTED EYE S THREE TIMES A DAY FOR 7 DAYS tobramycin 0.3 % eye drops INSTILL 2 DROPS INTO AFFECTED EYE S THREE TIMES A DAY FOR 7 DAYS completed tobramycin 3 MG/ML Ophtha lmic Solution ALEX ([facility]) Amoxicillin 875 MG / Clavulanate 125 MG Oral Tablet amoxicillin 875 mg-potassium clavulanate 125 mg tablet TAKE ONE TABLET BY MOUTH TWICE A DAY FOR 14 DAYS amoxicillin 875 mg-potassium clavulanate 125 mg tablet TAKE ONE TABLET BY MOUTH TWICE A DAY FOR 14 DAYS completed amoxicillin 875 MG / clavulanate 125 MG Oral Tablet [place] ([facility]) Fluzone Quad 60 mcg (15 mcg x 4)/0.5 mL intramuscular susp. INJECT DIRECTED [id number] completed influe nza A virus A/ (H3N2) antigen 0.03 MG/ML / influenza A virus A/ (H1N1) antigen 0.03 MG/ML / influenza B virus B/[facility] antigen 0.03 MG/ML / influenza B virus B/Val antigen 0.03 MG/ML Injectable Suspension [place] ([facility]) gabapentin 300 MG Oral Capsule gabapenti [...] completed gabapentin 300 MG Oral Capsule ALEX ([facility]) Ibuprofen 600 MG Oral Tablet ibuprofen 6 00 mg tablet TAKE ONE TABLET BY MOUTH TWICE A DAY ibuprofen 600 mg tablet TAKE ONE TABLET BY MOUTH TWICE A DAY completed ibuprofen 600 MG Ora l Tablet [place] ([facility]) doxycycline hyclate 100 MG Oral Tablet d oxycycline hyclate 100 mg tablet TAKE ONE TABLET BY MOUTH TWICE A DAY doxycycline hyclate 100 mg tablet TAKE O NE TABLET BY MOUTH TWICE A DAY completed doxycycline hyclate 100 MG Oral Tablet ALEX ([facility]) tizanidine 2 MG Oral Tablet tizanidine 2 mg tablet TAKE ONE TABLET BY MOUTH EVERY 8 HOURS NEEDED FOR SPASMS tizanidine 2 mg tablet TAKE ONE TABLET B Y MOUTH EVERY 8 HOURS NEEDED FOR SPASMS completed tizanidine 2 MG Oral Tablet ALEX ([facility]) Tobramycin 3 MG/ML Ophthalmic Solution t obramycin 0.3 % eye drops INSTILL 2 DROPS INTO AFFECTED EYE S THREE TIMES A DAY FOR 7 DAYS tobramycin 0.3 % eye drops INSTILL 2 DROPS INTO AFFECTED EYE S THREE TIMES A DAY FOR 7 DAYS completed tobramycin 3 MG/ML Ophtha lmic Solution ALEX ([facility]) Ibuprofen 600 MG Oral Tablet ibuprofen 6 00 mg tablet TAKE ONE TABLET BY MOUTH TWICE A DAY ibuprofen 600 mg tablet TAKE ONE TABLET BY MOUTH TWICE A DAY completed ibuprofen 600 MG Ora l Tablet [place] ([facility]) gabapentin 300 MG Oral Capsule gabapenti [...] THREE completed gabapentin 300 MG Oral Capsule [place] ([facility]) Escitalopram 10 MG Oral Tablet escitalop ac 10 mg tablet TAKE ONE TABLET BY MOUTH EVERY DAY escitalopram 10 mg tablet TAKE ONE TABLET BY MOUTH EVERY DAY completed escitalopram 1 0 MG Oral Tablet [place] ([facility]) Naproxen 500 MG Oral Tablet naproxen 500 mg tablet TAKE ONE TABLET BY MOUTH EVERY 12 HOURS FOR 7 DAYS naproxen 500 mg tablet TAKE ONE TABLET B Y MOUTH EVERY 12 HOURS FOR 7 DAYS completed na proxen 500 MG Oral Tablet [place] ([facility]) meloxicam 7.5 MG Oral Tablet meloxicam 7 .5 mg tablet TAKE ONE TABLET BY MOUTH EVERY DAY meloxicam 7.5 mg tablet TAKE ONE TABLET BY MOUTH EVERY DAY completed meloxicam 7.5 MG Oral Tablet [place] ([facility]) Escitalopram 20 MG Oral Tablet escitalopram 20 mg tabl et escitalopram 20 mg tablet completed escitalopram 20 MG Oral Tablet [place] ([facility]) meloxicam 7.5 MG Oral Tablet meloxicam 7 .5 mg tablet TAKE ONE TABLET BY MOUTH EVERY DAY meloxicam 7.5 mg tablet TAKE ONE TABLET BY MOUTH EVERY DAY completed meloxicam 7.5 MG Oral Tablet [place] ([facility]) Ibuprofen 600 MG Oral Tablet ibuprofen 6 00 mg tablet TAKE ONE TABLET BY MOUTH TWICE A DAY ibuprofen 600 mg tablet TAKE ONE TABLET BY MOUTH TWICE A DAY completed ibuprofen 600 MG Ora l Tablet [place] ([facility]) methylprednisolone 4 mg tablets in a dos e pack TAKE DOSE BRIJESH DIRECTED ON SHEET [id number] completed methylpre dnisolone 4 mg tablets in a dose pack [place] ([facility]) Furosemide 20 MG Oral Tablet furosemide 20 mg tablet TAKE ONE TABLET BY MOUTH EVERY DAY furosemide 20 mg tablet TAKE ONE TABLET BY MOUTH EVERY DAY completed furosemide 20 MG Oral Tablet [place] ([facility]) Escitalopram 10 MG Oral Tablet escitalop ac 10 mg tablet TAKE ONE TABLET BY MOUTH EVERY DAY escitalopram 10 mg tablet TAKE ONE TABLET BY MOUTH EVERY DAY completed escitalopram 1 0 MG Oral Tablet [place] ([facility]) Escitalopram 10 MG Oral Tablet escitalop ac 10 mg tablet TAKE ONE TABLET BY MOUTH EVERY DAY escitalopram 10 mg tablet TAKE ONE TABLET BY MOUTH EVERY DAY completed escitalopram 1 0 MG Oral Tablet [place] ([facility]) terbinafine 250 MG Oral Tablet terbinafi ne HCl 250 mg tablet TAKE 1 TABLET BY MOUTH ONCE DAILY terbinafine HCl 250 mg tablet TAKE 1 TAB LET BY MOUTH ONCE DAILY completed terbinafine 250 MG Oral Tablet [place] ([facility]) Omeprazole 20 MG Delayed Release Oral Ca psule omeprazole 20 mg capsule,delayed release TAKE ONE CAPSULE BY MOUTH EVERY DAY omeprazole 20 mg capsule,delayed release TAKE ONE CAPSULE BY MOUTH EVERY DAY completed omeprazole 20 MG Delayed Release Oral Capsule [place] ([facility]) Furosemide 20 MG Oral Tablet furosemide 20 mg tablet TAKE ONE TABLET BY MOUTH EVERY DAY furosemide 20 mg tablet TAKE ONE TABLET BY MOUTH EVERY DAY completed furosemide 20 MG Oral Tablet [place] ([facility]) Tobramycin 3 MG/ML Ophthalmic Solution t obramycin 0.3 % eye drops INSTILL 2 DROPS INTO AFFECTED EYE S THREE TIMES A DAY FOR 7 DAYS tobramycin 0.3 % eye drops INSTILL 2 DROPS INTO AFFECTED EYE S THREE TIMES A DAY FOR 7 DAYS completed tobramycin 3 MG/ML Ophtha lmic Solution ALEX ([facility]) Sulfamethoxazole 800 MG / Trimethoprim 1 60 MG Oral Tablet sulfamethoxazole 800 mg-trimethoprim 160 mg tablet TAKE 1 TABLET BY MOUTH TWO TIMES A DAY FOR 7 DAYS sulfamethoxazole 800 mg-trimethoprim 160 mg tablet TAKE 1 TABLET BY MOUTH TWO TIMES A DAY FOR 7 DAYS completed sulfamethoxazole 800 MG / trimethoprim 160 MG Oral Tablet [place] ([facility]) Escitalopram 20 MG Oral Tablet escitalopram 20 mg tabl et escitalopram 20 mg tablet completed escitalopram 20 MG Oral Tablet [place] ([facility]) Naproxen 500 MG Oral Tablet naproxen 500 mg tablet TAKE ONE TABLET BY MOUTH EVERY 12 HOURS FOR 7 DAYS naproxen 500 mg tablet TAKE ONE TABLET B Y MOUTH EVERY 12 HOURS FOR 7 DAYS completed na proxen 500 MG Oral Tablet [place] ([facility]) Fluzone Quad 60 mcg (15 mcg x 4)/0.5 mL intramuscular susp. INJECT DIRECTED [id number] completed Fluzon e Quad 60 mcg (15 mcg x 4)/0.5 mL intramuscular susp. ALEX ([facility]) Prednisone 20 MG Oral Tablet [...] D completed prednisone 20 MG Oral Tablet [place] ([facility]) methylprednisolone 4 mg tablets in a dos e pack TAKE DOSE BRIJESH DIRECTED ON SHEET [id number] completed methylpre dnisolone 4 mg tablets in a dose pack [place] ([facility]) Acetaminophen 325 MG Oral Tablet acetami nophen 325 mg tablet TAKE ONE TABLET BY MOUTH EVERY 6 HOURS NEEDED FOR PAIN acetaminophen 325 mg tablet TAKE ONE TABLET BY MOUTH EVERY 6 HOURS NEEDED FOR PAIN completed acetaminophen 325 MG Oral Tablet [place] ([facility]) tizanidine 2 MG Oral Tablet tizanidine 2 mg tablet TAKE ONE TABLET BY MOUTH EVERY 8 HOURS NEEDED FOR SPASMS tizanidine 2 mg tablet TAKE ONE TABLET B Y MOUTH EVERY 8 HOURS NEEDED FOR SPASMS completed tizanidine 2 MG Oral Tablet [place] ([facility]) Tobramycin 3 MG/ML Ophthalmic Solution t obramycin 0.3 % eye drops INSTILL 2 DROPS INTO AFFECTED EYE S THREE TIMES A DAY FOR 7 DAYS tobramycin 0.3 % eye drops INSTILL 2 DROPS INTO AFFECTED EYE S THREE TIMES A DAY FOR 7 DAYS completed tobramycin 3 MG/ML Ophtha lmic Solution [place] ([facility]) Escitalopram 10 MG Oral Tablet escitalop ac 10 mg tablet TAKE ONE TABLET BY MOUTH EVERY DAY escitalopram 10 mg tablet TAKE ONE TABLET BY MOUTH EVERY DAY completed escitalopram 1 0 MG Oral Tablet [place] ([facility]) Ibuprofen 600 MG Oral Tablet ibuprofen 6 00 mg tablet TAKE ONE TABLET BY MOUTH TWICE A DAY ibuprofen 600 mg tablet TAKE ONE TABLET BY MOUTH TWICE A DAY completed ibuprofen 600 MG Ora l Tablet [place] ([facility]) Tobramycin 3 MG/ML Ophthalmic Solution t obramycin 0.3 % eye drops INSTILL 2 DROPS INTO AFFECTED EYE S THREE TIMES A DAY FOR 7 DAYS tobramycin 0.3 % eye drops INSTILL 2 DROPS INTO AFFECTED EYE S THREE TIMES A DAY FOR 7 DAYS completed tobramycin 3 MG/ML Ophtha lmic Solution [place] ([facility]) methylprednisolone 4 mg tablets in a dos e pack TAKE DOSE BRIJESH DIRECTED ON SHEET [id number] completed methylpre dnisolone 4 mg tablets in a dose pack [place] ([facility]) Escitalopram 10 MG Oral Tablet escitalop ac 10 mg tablet TAKE ONE TABLET BY MOUTH EVERY DAY escitalopram 10 mg tablet TAKE ONE TABLET BY MOUTH EVERY DAY completed escitalopram 1 0 MG Oral Tablet [place] ([facility]) Ibuprofen 600 MG Oral Tablet ibuprofen 6 00 mg tablet TAKE ONE TABLET BY MOUTH TWICE A DAY ibuprofen 600 mg tablet TAKE ONE TABLET BY MOUTH TWICE A DAY completed ibuprofen 600 MG Ora l Tablet [place] ([facility]) Escitalopram 10 MG Oral Tablet escitalop ac 10 mg tablet TAKE ONE TABLET BY MOUTH EVERY DAY escitalopram 10 mg tablet TAKE ONE TABLET BY MOUTH EVERY DAY completed escitalopram 1 0 MG Oral Tablet [place] ([facility]) Prednisone 20 MG Oral Tablet prednisone [...] completed prednisone 20 MG Oral Tablet [place] ([facility]) Naproxen 500 MG Oral Tablet naproxen 500 mg tablet TAKE ONE TABLET BY MOUTH EVERY 12 HOURS FOR 7 DAYS naproxen 500 mg tablet TAKE ONE TABLET B Y MOUTH EVERY 12 HOURS FOR 7 DAYS completed na proxen 500 MG Oral Tablet [place] ([facility]) sildenafil 100 MG Oral Tablet sildenafil 100 mg tablet Take 1 tablet every day by oral route as needed. sildenafil 100 mg tablet Take 1 tablet e very day by oral route as needed. 1 completed sildenafil 100 MG Oral Tablet [place] ([facility]) meloxicam 7.5 MG Oral Tablet meloxicam 7 .5 mg tablet TAKE ONE TABLET BY MOUTH EVERY DAY meloxicam 7.5 mg tablet TAKE ONE TABLET BY MOUTH EVERY DAY completed meloxicam 7.5 MG Oral Tablet [place] ([facility]) sildenafil 100 MG Oral Tablet sildenafil 100 mg tablet Take 1 tablet every day by oral route as needed. sildenafil 100 mg tablet Take 1 tablet e very day by oral route as needed. 1 completed sildenafil 100 MG Oral Tablet [place] ([facility]) methylprednisolone 4 mg tablets in a dos e pack TAKE DOSE BRIJESH DIRECTED ON SHEET [id number] completed methylpre dnisolone 4 mg tablets in a dose pack [place] ([facility]) sildenafil 100 MG Oral Tablet sildenafil 100 mg tablet Take 1 tablet every day by oral route as needed. sildenafil 100 mg tablet Take 1 tablet e very day by oral route as needed. 1 completed sildenafil 100 MG Oral Tablet [place] ([facility]) methylprednisolone 4 mg tablets in a dos e pack TAKE DOSE BRIJESH DIRECTED ON SHEET [id number] completed methylpre dnisolone 4 mg tablets in a dose pack [place] ([facility]) Fluzone Quad 60 mcg (15 mcg x 4)/0.5 mL intramuscular susp. INJECT DIRECTED [id number] completed Fluzon e Quad 60 mcg (15 mcg x 4)/0.5 mL intramuscular susp. ALEX ([facility]) tizanidine 2 MG Oral Tablet tizanidine 2 mg tablet TAKE ONE TABLET BY MOUTH EVERY 8 HOURS NEEDED FOR SPASMS tizanidine 2 mg tablet TAKE ONE TABLET B Y MOUTH EVERY 8 HOURS NEEDED FOR SPASMS completed tizanidine 2 MG Oral Tablet [facility] ([facility]) Escitalopram 20 MG Oral Tablet escitalopram 20 mg tabl et escitalopram 20 mg tablet completed escitalopram 20 MG Oral Tablet [place] ([facility]) Acetaminophen 325 MG Oral Tablet acetami nophen 325 mg tablet TAKE ONE TABLET BY MOUTH EVERY 6 HOURS NEEDED FOR PAIN acetaminophen 325 mg tablet TAKE ONE TABLET BY MOUTH EVERY 6 HOURS NEEDED FOR PAIN completed acetaminophen 325 MG Oral Tablet [place] ([facility]) sildenafil 100 MG Oral Tablet sildenafil 100 mg tablet Take 1 tablet every day by oral route as needed. sildenafil 100 mg tablet Take 1 tablet e very day by oral route as needed. 1 completed sildenafil 100 MG Oral Tablet [place] ([facility]) Omeprazole 20 MG Delayed Release Oral Ca psule omeprazole 20 mg capsule,delayed release TAKE ONE CAPSULE BY MOUTH EVERY DAY omeprazole 20 mg capsule,delayed release TAKE ONE CAPSULE BY MOUTH EVERY DAY completed omeprazole 20 MG Delayed Release Oral Capsule [place] ([facility]) Prednisone 20 MG Oral Tablet [...] completed prednisone 20 MG Oral Tablet [facility] ([facility]) Amoxicillin 875 MG / Clavulanate 125 MG Oral Tablet amoxicillin 875 mg-potassium clavulanate 125 mg tablet TAKE ONE TABLET BY MOUTH TWICE A DAY FOR 14 DAYS amoxicillin 875 mg-potassium clavulanate 125 mg tablet TAKE ONE TABLET BY MOUTH TWICE A DAY FOR 14 DAYS completed amoxicillin 875 MG / clavulanate 125 MG Oral Tablet [facility] ([facility]) Escitalopram 10 MG Oral Tablet escitalop ac 10 mg tablet TAKE ONE TABLET BY MOUTH EVERY DAY escitalopram 10 mg tablet TAKE ONE TABLET BY MOUTH EVERY DAY completed escitalopram 1 0 MG Oral Tablet [place] ([facility]) gabapentin 300 MG Oral Capsule gabapenti [...] completed gabapentin 300 MG Oral Capsule [place] ([facility]) terbinafine 250 MG Oral Tablet terbinafi ne HCl 250 mg tablet TAKE 1 TABLET BY MOUTH ONCE DAILY terbinafine HCl 250 mg tablet TAKE 1 TAB LET BY MOUTH ONCE DAILY completed terbinafine 250 MG Oral Tablet [place] ([facility]) gabapentin 300 MG Oral Capsule gabapenti [...] THREE completed gabapentin 300 MG Oral Capsule [place] ([facility]) Naproxen 500 MG Oral Tablet naproxen 500 mg tablet TAKE ONE TABLET BY MOUTH EVERY 12 HOURS FOR 7 DAYS naproxen 500 mg tablet TAKE ONE TABLET B Y MOUTH EVERY 12 HOURS FOR 7 DAYS completed na proxen 500 MG Oral Tablet [place] ([facility]) methylprednisolone 4 mg tablets in a dos e pack TAKE DOSE BRIJESH DIRECTED ON SHEET [id number] completed methylpre dnisolone 4 mg tablets in a dose pack [place] [facility] [facility]) meloxicam 7.5 MG Oral Tablet meloxicam 7 .5 mg tablet TAKE ONE TABLET BY MOUTH EVERY DAY meloxicam 7.5 mg tablet TAKE ONE TABLET BY MOUTH EVERY DAY completed meloxicam 7.5 MG Oral Tablet [place] ([facility]) meloxicam 7.5 MG Oral Tablet meloxicam 7 .5 mg tablet TAKE ONE TABLET BY MOUTH EVERY DAY meloxicam 7.5 mg tablet TAKE ONE TABLET BY MOUTH EVERY DAY completed meloxicam 7.5 MG Oral Tablet [place] ([facility]) Naproxen 500 MG Oral Tablet naproxen 500 mg tablet TAKE ONE TABLET BY MOUTH EVERY 12 HOURS FOR 7 DAYS naproxen 500 mg tablet TAKE ONE TABLET B Y MOUTH EVERY 12 HOURS FOR 7 DAYS completed na proxen 500 MG Oral Tablet [place] ([facility]) Omeprazole 20 MG Delayed Release Oral Ca psule omeprazole 20 mg capsule,delayed release TAKE ONE CAPSULE BY MOUTH EVERY DAY omeprazole 20 mg capsule,delayed release TAKE ONE CAPSULE BY MOUTH EVERY DAY completed omeprazole 20 MG Delayed Release Oral Capsule [place] ([facility]) Escitalopram 10 MG Oral Tablet escitalop ac 10 mg tablet TAKE ONE TABLET BY MOUTH EVERY DAY escitalopram 10 mg tablet TAKE ONE TABLET BY MOUTH EVERY DAY completed escitalopram 1 0 MG Oral Tablet [place] ([facility]) Escitalopram 20 MG Oral Tablet escitalopram 20 mg tabl et escitalopram 20 mg tablet completed escitalopram 20 MG Oral Tablet [place] ([facility]) Fluzone Quad 2505-8494 60 mcg (15 mcg x 4)/0.5 mL intramuscular susp. INJECT DIRECTED [id number] completed influe nza A virus A/Lopez (H3N2) antigen 0.03 MG/ML / influenza A virus A/Val (H1N1) antigen 0.03 MG/ML / influenza B virus B/[facility] antigen 0.03 MG/ML / influenza B virus B/[facility] antigen 0.03 MG/ML Injectable Suspension [place] ([facility]) tizanidine 2 MG Oral Tablet tizanidine 2 mg tablet TAKE ONE TABLET BY MOUTH EVERY 8 HOURS NEEDED FOR SPASMS tizanidine 2 mg tablet TAKE ONE TABLET B Y MOUTH EVERY 8 HOURS NEEDED FOR SPASMS completed tizanidine 2 MG Oral Tablet [place] ([facility]) Prednisone 20 MG Oral Tablet [...] D completed prednisone 20 MG Oral Tablet [place] ([facility]) gabapentin 300 MG Oral Capsule [...] THREE completed gabapentin 300 MG Oral Capsule [place] ([facility]) Acetaminophen 325 MG Oral Tablet acetami nophen 325 mg tablet TAKE ONE TABLET BY MOUTH EVERY 6 HOURS NEEDED FOR PAIN acetaminophen 325 mg tablet TAKE ONE TABLET BY MOUTH EVERY 6 HOURS NEEDED FOR PAIN completed acetaminophen 325 MG Oral Tablet [place] ([facility]) Amoxicillin 875 MG / Clavulanate 125 MG Oral Tablet amoxicillin 875 mg-potassium clavulanate 125 mg tablet TAKE ONE TABLET BY MOUTH TWICE A DAY FOR 14 DAYS amoxicillin 875 mg-potassium clavulanate 125 mg tablet TAKE ONE TABLET BY MOUTH TWICE A DAY FOR 14 DAYS completed amoxicillin 875 MG / clavulanate 125 MG Oral Tablet [place] ([facility]) methylprednisolone 4 mg tablets in a dos e pack TAKE DOSE BRIJESH DIRECTED ON SHEET [id number] completed methylpre dnisolone 4 mg tablets in a dose pack [place] ([facility]) Tobramycin 3 MG/ML Ophthalmic Solution t obramycin 0.3 % eye drops INSTILL 2 DROPS INTO AFFECTED EYE S THREE TIMES A DAY FOR 7 DAYS tobramycin 0.3 % eye drops INSTILL 2 DROPS INTO AFFECTED EYE S THREE TIMES A DAY FOR 7 DAYS completed tobramycin 3 MG/ML Ophtha lmic Solution [place] ([facility]) Sulfamethoxazole 800 MG / Trimethoprim 1 60 MG Oral Tablet sulfamethoxazole 800 mg-trimethoprim 160 mg tablet TAKE 1 TABLET BY MOUTH TWO TIMES A DAY FOR 7 DAYS sulfamethoxazole 800 mg-trimethoprim 160 mg tablet TAKE 1 TABLET BY MOUTH TWO TIMES A DAY FOR 7 DAYS completed sulfamethoxazole 800 MG / trimethoprim 160 MG Oral Tablet [place] ([facility]) Escitalopram 20 MG Oral Tablet escitalopram 20 mg tabl et escitalopram 20 mg tablet completed escitalopram 20 MG Oral Tablet [place] ([facility]) gabapentin 300 MG Oral Capsule gabapenti [...] THREE completed gabapentin 300 MG Oral Capsule [place] ([facility]) Acetaminophen 325 MG Oral Tablet acetami nophen 325 mg tablet TAKE ONE TABLET BY MOUTH EVERY 6 HOURS NEEDED FOR PAIN acetaminophen 325 mg tablet TAKE ONE TABLET BY MOUTH EVERY 6 HOURS NEEDED FOR PAIN completed acetaminophen 325 MG Oral Tablet [place] ([facility]) Acetaminophen 325 MG Oral Tablet acetami nophen 325 mg tablet TAKE ONE TABLET BY MOUTH EVERY 6 HOURS NEEDED FOR PAIN acetaminophen 325 mg tablet TAKE ONE TABLET BY MOUTH EVERY 6 HOURS NEEDED FOR PAIN completed acetaminophen 325 MG Oral Tablet [place] ([facility]) terbinafine 250 MG Oral Tablet terbinafi ne HCl 250 mg tablet TAKE 1 TABLET BY MOUTH ONCE DAILY terbinafine HCl 250 mg tablet TAKE 1 TAB LET BY MOUTH ONCE DAILY completed terbinafine 250 MG Oral Tablet [place] ([facility]) Tobramycin 3 MG/ML Ophthalmic Solution t obramycin 0.3 % eye drops INSTILL 2 DROPS INTO AFFECTED EYE S THREE TIMES A DAY FOR 7 DAYS tobramycin 0.3 % eye drops INSTILL 2 DROPS INTO AFFECTED EYE S THREE TIMES A DAY FOR 7 DAYS completed tobramycin 3 MG/ML Ophtha lmic Solution [place] ([facility]) meloxicam 7.5 MG Oral Tablet meloxicam 7 .5 mg tablet TAKE ONE TABLET BY MOUTH EVERY DAY meloxicam 7.5 mg tablet TAKE ONE TABLET BY MOUTH EVERY DAY completed meloxicam 7.5 MG Oral Tablet [place] ([facility]) Naproxen 500 MG Oral Tablet naproxen 500 mg tablet TAKE ONE TABLET BY MOUTH EVERY 12 HOURS FOR 7 DAYS naproxen 500 mg tablet TAKE ONE TABLET B Y MOUTH EVERY 12 HOURS FOR 7 DAYS completed na proxen 500 MG Oral Tablet [place] ([facility]) doxycycline hyclate 100 MG Oral Tablet d oxycycline hyclate 100 mg tablet TAKE ONE TABLET BY MOUTH TWICE A DAY doxycycline hyclate 100 mg tablet TAKE O NE TABLET BY MOUTH TWICE A DAY completed doxycycline hyclate 100 MG Oral Tablet [place] ([facility]) sildenafil 100 MG Oral Tablet sildenafil 100 mg tablet Take 1 tablet every day by oral route as needed. sildenafil 100 mg tablet Take 1 tablet e very day by oral route as needed. 1 completed sildenafil 100 MG Oral Tablet [place] ([facility]) Furosemide 20 MG Oral Tablet furosemide 20 mg tablet TAKE ONE TABLET BY MOUTH EVERY DAY furosemide 20 mg tablet TAKE ONE TABLET BY MOUTH EVERY DAY completed furosemide 20 MG Oral Tablet [place] ([facility]) Fluzone Quad 60 mcg (15 mcg x 4)/0.5 mL intramuscular susp. INJECT DIRECTED [id number] completed Fluzon e Quad [id number] 60 mcg (15 mcg x 4)/0.5 mL intramuscular susp. [place] ([facility]) Tobramycin 3 MG/ML Ophthalmic Solution t obramycin 0.3 % eye drops INSTILL 2 DROPS INTO AFFECTED EYE S THREE TIMES A DAY FOR 7 DAYS tobramycin 0.3 % eye drops INSTILL 2 DROPS INTO AFFECTED EYE S THREE TIMES A DAY FOR 7 DAYS completed tobramycin 3 MG/ML Ophtha lmic Solution [place] ([facility]) meloxicam 7.5 MG Oral Tablet meloxicam 7 .5 mg tablet TAKE ONE TABLET BY MOUTH EVERY DAY meloxicam 7.5 mg tablet TAKE ONE TABLET BY MOUTH EVERY DAY completed meloxicam 7.5 MG Oral Tablet [place] ([facility]) Escitalopram 10 MG Oral Tablet escitalop ac 10 mg tablet TAKE ONE TABLET BY MOUTH EVERY DAY escitalopram 10 mg tablet TAKE ONE TABLET BY MOUTH EVERY DAY completed escitalopram 1 0 MG Oral Tablet [place] ([facility]) Naproxen 500 MG Oral Tablet naproxen 500 mg tablet TAKE ONE TABLET BY MOUTH EVERY 12 HOURS FOR 7 DAYS naproxen 500 mg tablet TAKE ONE TABLET B Y MOUTH EVERY 12 HOURS FOR 7 DAYS completed na proxen 500 MG Oral Tablet [place] ([facility]) Amoxicillin 875 MG / Clavulanate 125 MG Oral Tablet amoxicillin 875 mg-potassium clavulanate 125 mg tablet TAKE ONE TABLET BY MOUTH TWICE A DAY FOR 14 DAYS amoxicillin 875 mg-potassium clavulanate 125 mg tablet TAKE ONE TABLET BY MOUTH TWICE A DAY FOR 14 DAYS completed amoxicillin 875 MG / clavulanate 125 MG Oral Tablet [place] ([facility]) gabapentin 300 MG Oral Capsule [...] completed gabapentin 300 MG Oral Capsule [place] ([facility]) Sulfamethoxazole 800 MG / Trimethoprim 1 60 MG Oral Tablet sulfamethoxazole 800 mg-trimethoprim 160 mg tablet TAKE 1 TABLET BY MOUTH TWO TIMES A DAY FOR 7 DAYS sulfamethoxazole 800 mg-trimethoprim 160 mg tablet TAKE 1 TABLET BY MOUTH TWO TIMES A DAY FOR 7 DAYS completed sulfamethoxazole 800 MG / trimethoprim 160 MG Oral Tablet [place] ([facility]) tizanidine 2 MG Oral Tablet tizanidine 2 mg tablet TAKE ONE TABLET BY MOUTH EVERY 8 HOURS NEEDED FOR SPASMS tizanidine 2 mg tablet TAKE ONE TABLET B Y MOUTH EVERY 8 HOURS NEEDED FOR SPASMS completed tizanidine 2 MG Oral Tablet [place] ([facility]) Fluzone Quad 60 mcg (15 mcg x 4)/0.5 mL intramuscular susp. INJECT DIRECTED [id number] completed influe nza A virus A/ (H3N2) antigen 0.03 MG/ML / influenza A virus A/Val (H1N1) antigen 0.03 MG/ML / influenza B virus B/[facility] antigen 0.03 MG/ML / influenza B virus B/[place] antigen 0.03 MG/ML Injectable Suspension [place] ([facility]) Naproxen 500 MG Oral Tablet naproxen 500 mg tablet TAKE ONE TABLET BY MOUTH EVERY 12 HOURS FOR 7 DAYS naproxen 500 mg tablet TAKE ONE TABLET B Y MOUTH EVERY 12 HOURS FOR 7 DAYS completed na proxen 500 MG Oral Tablet [place] ([facility]) meloxicam 7.5 MG Oral Tablet meloxicam 7 .5 mg tablet TAKE ONE TABLET BY MOUTH EVERY DAY meloxicam 7.5 mg tablet TAKE ONE TABLET BY MOUTH EVERY DAY completed meloxicam 7.5 MG Oral Tablet [place] ([facility]) Naproxen 500 MG Oral Tablet naproxen 500 mg tablet TAKE ONE TABLET BY MOUTH EVERY 12 HOURS FOR 7 DAYS naproxen 500 mg tablet TAKE ONE TABLET B Y MOUTH EVERY 12 HOURS FOR 7 DAYS completed na proxen 500 MG [facility] Fluzone Quad 60 mcg (15 mcg x 4)/0.5 mL intramuscular susp. INJECT DIRECTED [id number] completed Fluzon e Quad 60 mcg (15 mcg x 4)/0.5 mL intramuscular susp. [place] ([facility]) Tobramycin 3 MG/ML Ophthalmic Solution t obramycin 0.3 % eye drops INSTILL 2 DROPS INTO AFFECTED EYE S THREE TIMES A DAY FOR 7 DAYS tobramycin 0.3 % eye drops INSTILL 2 DROPS INTO AFFECTED EYE S THREE TIMES A DAY FOR 7 DAYS completed tobramycin 3 MG/ML Ophtha lmic Solution [place] ([facility]) Escitalopram 20 MG Oral Tablet escitalopram 20 mg tabl et escitalopram 20 mg tablet completed escitalopram 20 MG Oral Tablet [place] ([facility]) Fluzone Quad 60 mcg (15 mcg x 4)/0.5 mL intramuscular susp. INJECT DIRECTED [id number] completed Fluzon e Quad 60 mcg (15 mcg x 4)/0.5 mL intramuscular susp. [place] ([facility]) meloxicam 7.5 MG Oral Tablet meloxicam 7 .5 mg tablet TAKE ONE TABLET BY MOUTH EVERY DAY meloxicam 7.5 mg tablet TAKE ONE TABLET BY MOUTH EVERY DAY completed meloxicam 7.5 MG Oral Tablet [place] ([facility]) meloxicam 7.5 MG Oral Tablet meloxicam 7 .5 mg tablet TAKE ONE TABLET BY MOUTH EVERY DAY meloxicam 7.5 mg tablet TAKE ONE TABLET BY MOUTH EVERY DAY completed meloxicam 7.5 MG Oral Tablet [place] ([facility]) Amoxicillin 875 MG / Clavulanate 125 MG Oral Tablet amoxicillin 875 mg-potassium clavulanate 125 mg tablet TAKE ONE TABLET BY MOUTH TWICE A DAY FOR 14 DAYS amoxicillin 875 mg-potassium clavulanate 125 mg tablet TAKE ONE TABLET BY MOUTH TWICE A DAY FOR 14 DAYS completed amoxicillin 875 MG / clavulanate 125 MG Oral Tablet [place] ([facility]) tizanidine 2 MG Oral Tablet tizanidine 2 mg tablet TAKE ONE TABLET BY MOUTH EVERY 8 HOURS NEEDED FOR SPASMS tizanidine 2 mg tablet TAKE ONE TABLET B Y MOUTH EVERY 8 HOURS NEEDED FOR SPASMS completed tizanidine 2 MG Oral Tablet [place] ([facility]) Omeprazole 20 MG Delayed Release Oral Ca psule omeprazole 20 mg capsule,delayed release TAKE ONE CAPSULE BY MOUTH EVERY DAY omeprazole 20 mg capsule,delayed release TAKE ONE CAPSULE BY MOUTH EVERY DAY completed omeprazole 20 MG Delayed Release Oral Capsule [place] ([facility]) Naproxen 500 MG Oral Tablet naproxen 500 mg tablet TAKE ONE TABLET BY MOUTH EVERY 12 HOURS FOR 7 DAYS naproxen 500 mg tablet TAKE ONE TABLET B Y MOUTH EVERY 12 HOURS FOR 7 DAYS completed na proxen 500 MG Oral Tablet [place] ([facility]) Fluzone Quad [id number] 60 mcg (15 mcg x 4)/0.5 mL intramuscular susp. INJECT DIRECTED [id number] completed influe nza A virus A/Lopez (H3N2) antigen 0.03 MG/ML / influenza A virus A/ (H1N1) antigen 0.03 MG/ML / influenza B virus B/[facility] antigen 0.03 MG/ML / influenza B virus B/Val antigen 0.03 MG/ML Injectable Suspension [place] ([facility]) gabapentin 300 MG Oral Capsule gabapenti [...] completed gabapentin 300 MG Oral Capsule [place] ([facility]) sildenafil 100 MG Oral Tablet sildenafil 100 mg tablet Take 1 tablet every day by oral route as needed. sildenafil 100 mg tablet Take 1 tablet e very day by oral route as needed. 1 completed sildenafil 100 MG Oral Tablet [place] ([facility]) Amoxicillin 875 MG / Clavulanate 125 MG Oral Tablet amoxicillin 875 mg-potassium clavulanate 125 mg tablet TAKE ONE TABLET BY MOUTH TWICE A DAY FOR 14 DAYS amoxicillin 875 mg-potassium clavulanate 125 mg tablet TAKE ONE TABLET BY MOUTH TWICE A DAY FOR 14 DAYS completed amoxicillin 875 MG / clavulanate 125 MG Oral Tablet [place] ([facility]) Omeprazole 20 MG Delayed Release Oral Ca psule omeprazole 20 mg capsule,delayed release TAKE ONE CAPSULE BY MOUTH EVERY DAY omeprazole 20 mg capsule,delayed release TAKE ONE CAPSULE BY MOUTH EVERY DAY completed omeprazole 20 MG Delayed Release Oral Capsule [place] ([facility]) Prednisone 20 MG Oral Tablet [...] completed prednisone 20 MG Oral Tablet [place] ([facility]) Prednisone 20 MG Oral Tablet [...] completed prednisone 20 MG Oral Tablet [place] ([facility]) Furosemide 20 MG Oral Tablet furosemide 20 mg tablet TAKE ONE TABLET BY MOUTH EVERY DAY furosemide 20 mg tablet TAKE ONE TABLET BY MOUTH EVERY DAY completed furosemide 20 MG Oral Tablet [place] ([facility]) methylprednisolone 4 mg tablets in a dos e pack TAKE DOSE BRIJESH DIRECTED ON SHEET [id number] completed methylpre dnisolone 4 mg tablets in a dose pack [place] ([facility]) tizanidine 2 MG Oral Tablet tizanidine 2 mg tablet TAKE ONE TABLET BY MOUTH EVERY 8 HOURS NEEDED FOR SPASMS tizanidine 2 mg tablet TAKE ONE TABLET B Y MOUTH EVERY 8 HOURS NEEDED FOR SPASMS completed tizanidine 2 MG Oral Tablet [place] ([facility]) Omeprazole 20 MG Delayed Release Oral Ca psule omeprazole 20 mg capsule,delayed release TAKE ONE CAPSULE BY MOUTH EVERY DAY omeprazole 20 mg capsule,delayed release TAKE ONE CAPSULE BY MOUTH EVERY DAY completed omeprazole 20 MG Delayed Release Oral Capsule [place] ([facility]) Acetaminophen 325 MG Oral Tablet acetami nophen 325 mg tablet TAKE ONE TABLET BY MOUTH EVERY 6 HOURS NEEDED FOR PAIN acetaminophen 325 mg tablet TAKE ONE TABLET BY MOUTH EVERY 6 HOURS NEEDED FOR PAIN completed acetaminophen 325 MG Oral Tablet [place] ([facility]) Amoxicillin 875 MG / Clavulanate 125 MG Oral Tablet amoxicillin 875 mg-potassium clavulanate 125 mg tablet TAKE ONE TABLET BY MOUTH TWICE A DAY FOR 14 DAYS amoxicillin 875 mg-potassium clavulanate 125 mg tablet TAKE ONE TABLET BY MOUTH TWICE A DAY FOR 14 DAYS completed amoxicillin 875 MG / clavulanate 125 MG Oral Tablet [place] ([facility]) Amoxicillin 875 MG / Clavulanate 125 MG Oral Tablet amoxicillin 875 mg-potassium clavulanate 125 mg tablet TAKE ONE TABLET BY MOUTH TWICE A DAY FOR 14 DAYS amoxicillin 875 mg-potassium clavulanate 125 mg tablet TAKE ONE TABLET BY MOUTH TWICE A DAY FOR 14 DAYS completed amoxicillin 875 MG / clavulanate 125 MG Oral Tablet [place] ([facility]) doxycycline hyclate 100 MG Oral Tablet d oxycycline hyclate 100 mg tablet TAKE ONE TABLET BY MOUTH TWICE A DAY doxycycline hyclate 100 mg tablet TAKE O NE TABLET BY MOUTH TWICE A DAY completed doxycycline hyclate 100 MG Oral Tablet [place] ([facility]) tizanidine 2 MG Oral Tablet tizanidine 2 mg tablet TAKE ONE TABLET BY MOUTH EVERY 8 HOURS NEEDED FOR SPASMS tizanidine 2 mg tablet TAKE ONE TABLET B Y MOUTH EVERY 8 HOURS NEEDED FOR SPASMS completed tizanidine 2 MG Oral Tablet [place] ([facility]) doxycycline hyclate 100 MG Oral Tablet d oxycycline hyclate 100 mg tablet TAKE ONE TABLET BY MOUTH TWICE A DAY doxycycline hyclate 100 mg tablet TAKE O NE TABLET BY MOUTH TWICE A DAY completed doxycycline hyclate 100 MG Oral Tablet [place] ([facility]) Acetaminophen 325 MG Oral Tablet acetami nophen 325 mg tablet TAKE ONE TABLET BY MOUTH EVERY 6 HOURS NEEDED FOR PAIN acetaminophen 325 mg tablet TAKE ONE TABLET BY MOUTH EVERY 6 HOURS NEEDED FOR PAIN completed acetaminophen 325 MG Oral Tablet [place] ([facility]) Acetaminophen 325 MG Oral Tablet acetami nophen 325 mg tablet TAKE ONE TABLET BY MOUTH EVERY 6 HOURS NEEDED FOR PAIN acetaminophen 325 mg tablet TAKE ONE TABLET BY MOUTH EVERY 6 HOURS NEEDED FOR PAIN completed acetaminophen 325 MG Oral Tablet [place] ([facility]) meloxicam 7.5 MG Oral Tablet meloxicam 7 .5 mg tablet TAKE ONE TABLET BY MOUTH EVERY DAY meloxicam 7.5 mg tablet TAKE ONE TABLET BY MOUTH EVERY DAY completed meloxicam 7.5 MG Oral Tablet [place] ([facility]) tizanidine 2 MG Oral Tablet tizanidine 2 mg tablet TAKE ONE TABLET BY MOUTH EVERY 8 HOURS NEEDED FOR SPASMS tizanidine 2 mg tablet TAKE ONE TABLET B Y MOUTH EVERY 8 HOURS NEEDED FOR SPASMS completed tizanidine 2 MG Oral Tablet [place] ([facility]) Furosemide 20 MG Oral Tablet furosemide 20 mg tablet TAKE ONE TABLET BY MOUTH EVERY DAY furosemide 20 mg tablet TAKE ONE TABLET BY MOUTH EVERY DAY completed furosemide 20 MG Oral Tablet [place] ([facility]) Furosemide 20 MG Oral Tablet furosemide 20 mg tablet TAKE ONE TABLET BY MOUTH EVERY DAY furosemide 20 mg tablet TAKE ONE TABLET BY MOUTH EVERY DAY completed furosemide 20 MG Oral Tablet [place] ([facility]) gabapentin 300 MG Oral Capsule gabapenti [...] THREE completed gabapentin 300 MG Oral Capsule [place] ([facility]) Escitalopram 10 MG Oral Tablet escitalop ac 10 mg tablet TAKE ONE TABLET BY MOUTH EVERY DAY escitalopram 10 mg tablet TAKE ONE TABLET BY MOUTH EVERY DAY completed escitalopram 1 0 MG Oral Tablet [place] ([facility]) doxycycline hyclate 100 MG Oral Tablet d oxycycline hyclate 100 mg tablet TAKE ONE TABLET BY MOUTH TWICE A DAY doxycycline hyclate 100 mg tablet TAKE O NE TABLET BY MOUTH TWICE A DAY completed doxycycline hyclate 100 MG Oral Tablet [place] ([facility]) Naproxen 500 MG Oral Tablet naproxen 500 mg tablet TAKE ONE TABLET BY MOUTH EVERY 12 HOURS FOR 7 DAYS naproxen 500 mg tablet TAKE ONE TABLET B Y MOUTH EVERY 12 HOURS FOR 7 DAYS completed na proxen 500 MG Oral Tablet [place] ([facility]) Acetaminophen 325 MG Oral Tablet acetami nophen 325 mg tablet TAKE ONE TABLET BY MOUTH EVERY 6 HOURS NEEDED FOR PAIN acetaminophen 325 mg tablet TAKE ONE TABLET BY MOUTH EVERY 6 HOURS NEEDED FOR PAIN completed acetaminophen 325 MG Oral Tablet [place] ([facility]) Escitalopram 10 MG Oral Tablet escitalop ac 10 mg tablet TAKE ONE TABLET BY MOUTH EVERY DAY escitalopram 10 mg tablet TAKE ONE TABLET BY MOUTH EVERY DAY completed escitalopram 1 0 MG Oral Tablet [place] ([facility]) tizanidine 2 MG Oral Tablet tizanidine 2 mg tablet TAKE ONE TABLET BY MOUTH EVERY 8 HOURS NEEDED FOR SPASMS tizanidine 2 mg tablet TAKE ONE TABLET B Y MOUTH EVERY 8 HOURS NEEDED FOR SPASMS completed tizanidine 2 MG Oral Tablet [place] ([facility]) Naproxen 500 MG Oral Tablet naproxen 500 mg tablet TAKE ONE TABLET BY MOUTH EVERY 12 HOURS FOR 7 DAYS naproxen 500 mg tablet TAKE ONE TABLET B Y MOUTH EVERY 12 HOURS FOR 7 DAYS completed na proxen 500 MG Oral Tablet [place] ([facility]) tizanidine 2 MG Oral Tablet tizanidine 2 mg tablet TAKE ONE TABLET BY MOUTH EVERY 8 HOURS NEEDED FOR SPASMS tizanidine 2 mg tablet TAKE ONE TABLET B Y MOUTH EVERY 8 HOURS NEEDED FOR SPASMS completed tizanidine 2 MG Oral Tablet [place] ([facility]) Escitalopram 10 MG Oral Tablet escitalop ac 10 mg tablet TAKE ONE TABLET BY MOUTH EVERY DAY escitalopram 10 mg tablet TAKE ONE TABLET BY MOUTH EVERY DAY completed escitalopram 1 0 MG Oral Tablet [place] ([facility]) Acetaminophen 325 MG Oral Tablet acetami nophen 325 mg tablet TAKE ONE TABLET BY MOUTH EVERY 6 HOURS NEEDED FOR PAIN acetaminophen 325 mg tablet TAKE ONE TABLET BY MOUTH EVERY 6 HOURS NEEDED FOR PAIN completed acetaminophen 325 MG Oral Tablet [place] ([facility]) terbinafine 250 MG Oral Tablet terbinafi ne HCl 250 mg tablet TAKE 1 TABLET BY MOUTH ONCE DAILY terbinafine HCl 250 mg tablet TAKE 1 TAB LET BY MOUTH ONCE DAILY completed terbinafine 250 MG Oral Tablet [place] ([facility]) Omeprazole 20 MG Delayed Release Oral Ca psule omeprazole 20 mg capsule,delayed release TAKE ONE CAPSULE BY MOUTH EVERY DAY omeprazole 20 mg capsule,delayed release TAKE ONE CAPSULE BY MOUTH EVERY DAY completed omeprazole 20 MG Delayed Release Oral Capsule [facility] ([facility]) gabapentin 300 MG Oral Capsule [...] completed gabapentin 300 MG Oral Capsule [facility] ([facility]) doxycycline hyclate 100 MG Oral Tablet d oxycycline hyclate 100 mg tablet TAKE ONE TABLET BY MOUTH TWICE A DAY doxycycline hyclate 100 mg tablet TAKE O NE TABLET BY MOUTH TWICE A DAY completed doxycycline hyclate 100 MG Oral Tablet [facility] ([facility]) Fluzone Quad 60 mcg (15 mcg x 4)/0.5 mL intramuscular susp. INJECT DIRECTED [id number] completed Fluzon e Quad 60 mcg (15 mcg x 4)/0.5 mL intramuscular susp. [facility] ([facility]) Insurance Providers Payer name Policy type / Coverage type Policy ID Covered green party ID Covered green party's relationship to brewer Policy Brewer Plan Information G[facility]DO Not Use) [id number] Self Medicaid [place] Medigap Part B [id number] Self MEDICARE A [id number] Self [id number] A MEDICAID M [id number] Self [id number] EXCELLUS I [id number] Self [id number] Medicaid S [id number] [facility] I [id number] Self [id number] Managed Care - Community Plan [facility] P [id number] S [id number] [facility] Community Plan [facility] Part B [id number] Self Managed Care - Community Plan [facility] P [id number] S [id number] Medicaid S [id number] S [id number] Managed Care - Community Plan [facility] P [id number] S [id number] Medicare P [id number] S [id number] A Medicare P [id number] S [id number] A Medicaid S [id number] S [id number] MEDICAID [id number] SP [id number] MEDICAID [id number] SP [id number] [place] [id number] Self [place] Medig[place] Part B [id number] Self Medicare C [id number] SELF [id number] A MEDICAID [id number] SP [id number] Medicaid [facility] S D [id number] SELF [id number] Medicaid S [id number] S [id number] Medicaid S [id number] S [id number] Medicare Wrap O [id number] S [id number] [facility] [id number] SP [id number] Medicare P [id number] S [id number] D [facility] O [id number] S [id number] [employer] P [id number] S [id number] Medicare S [id number] S [id number] A MEDICAID [id number] SP [id number] Medicaid S [id number] S [id number] [place] [id number] SP [id number] [facility] MCRO [id number] SP [id number] UHC UNITED MEDICARE DUAL G [id number] Self [id number] [employer] [place] P [id number] S [id number] Medicaid S [id number] S [id number] [facility] P [id number] S [id number] Medicare Dme Supplies Medigap Part B [id number] Self DME Jurisdiction A [facility] C [id number] SELF [id number] [facility] Ezequiel/MCR Medigap Part B [id number] Self Medicaid [place] Medig[place] Part B [id number] [place] Medicare Primary [id number] Self MEDICAID UNAVAILABLE UNAVAILA BLE UN COMMUNITY PLAN MCDO [id number] SP [id number] Medicare P [id number] S [id number] MEDICARE [id number] SP [id number] MEDICARE [id number] SP [id number] [facility] P UNAVAILABLE [id number] S UNAVAILABLE SELF PAY UNAVAILABLE SP UNAVAILA BLE BLUE [place] [id number] SP [id number] MEDICAID W [id number] S [id number] MEDICAID W [id number] S [id number] BLUE CHOICE OPTION O [id number] S [id number] O BLUE [id number] SP [id number] O [id number] S [id number] W [id number] S [id number] [place] [id number] SP [id number] [facility](MCAID) O [id number] S [id number] Medicaid Dental O [id number] S [id number] MEDICARE [id number] SP [id number] MEDICAID M [id number] S [id number] MEDICAID [id number] SP [id number] [facility] [id number] SP [id number] MEDICAID [id number] SP [id number] [place] Medicare Primary [id number] Self [id number] Medicaid [place] Medigap Part B [id number] Self [id number] [place] Medicare Primary [id number] Self [id number] [facility] Medigap Part B [id number] Self [id number] Dual Complete Medigap Part B [id number] Self [id number] [place] Medicare Primary [id number] Self 1 [id number] Medicaid [place] Medigap Part B [id number] Self [id number] Medicare [place] Medicare Primary [id number] Self [id number] Medicare [place] Medicare Primary [id number] Self 1 [id number] Medicaid [place] Medigap Part B [id number] Self [id number] [place] Medicare Primary [id number] Self [id number] Medicare [facility]/NGS Medicare Primary [id number] Self 1 [id number] Medicaid [facility] Part B [id number] Self [id number] Medicare [facility] Medicare Primary [id number] Self [id number] ANSI-Medicare Part B [id number] ANSI-Medicaid [id number] ANSI-Medicare Part B [id number] MEDICARE [facility] [id number] SP [id number] Medicare [facility] Medicare Primary [id number] Self 1 [id number] [facility] Medigap Part B [id number] Self 1 [id number] Medicaid [place] Medigap Part B [id number] Self [id number] [facility] Health Maintenance Organization (HMO) [id number] Self 1 [id number] [facility] [id number] SP [id number] MEDICARE [id number] SP [id number] MEDICARE [id number] SP [id number] A Medicare Wrap O [id number] S [id number] [facility] [employer] P [id number] S [id number] [facility] [id number] SP [id number] MEDICARE C [id number] S [id number] A Problems, Conditions, and Diagnoses Code Display Name Description Problem Type Effective Dates Data Source(s) [id number] Decreased testosterone level Decreased Testosterone Le lynda Problem 11/27/2020 12:00:00 AM EDT [facility] ([facility]) [id number] Decreased testosterone level Decreased Testosterone Le lynda Problem 11/27/2020 12:00:00 AM EDT [facility] ([facility]) [id number] Decreased testosterone level Decreased Testosterone Le lynda Problem 11/27/2020 12:00:00 AM EDT [facility] ([facility]) [id number] Decreased testosterone level Decreased Testosterone Le lynda Problem 11/27/2020 12:00:00 AM EDT [facility] ([facility]) [id number] Decreased testosterone level Decreased Testosterone Le lynda Problem 11/27/2020 12:00:00 AM EDT [facility] ([facility]) [id number] Decreased testosterone level Decreased Testosterone Le lynda Problem 11/27/2020 12:00:00 AM EDT [facility] ([facility]) [id number] Decreased testosterone level Decreased Testosterone Le lynda Problem 11/27/2020 12:00:00 AM EDT [facility] ([facility]) [id number] Decreased testosterone level Decreased Testosterone Le lynda Problem 11/27/2020 12:00:00 AM EDT [facility] ([facility]) [id number] Decreased testosterone level Decreased Testosterone Le lynda Problem 11/27/2020 12:00:00 AM EDT [facility] ([facility]) [id number] Decreased testosterone level Decreased Testosterone Le lynda Problem 11/27/2020 12:00:00 AM EDT [facility] ([facility]) [id number] Decreased testosterone level Decreased Testosterone Le lynda Problem 11/27/2020 12:00:00 AM EDT [facility] ([facility]) [id number] Decreased testosterone level Decreased Testosterone Le lynda Problem 11/27/2020 12:00:00 AM EDT [facility] ([facility]) [id number] Decreased testosterone level Decreased Testosterone Le lynda Problem 11/27/2020 12:00:00 AM EDT [facility] ([facility]) [id number] Decreased testosterone level Decreased Testosterone Le lynda Problem 11/27/2020 12:00:00 AM EDT [facility] ([facility]) [id number] Decreased testosterone level Decreased Testosterone Le lynda Problem 11/27/2020 12:00:00 AM EDT [facility] ([facility]) [id number] Decreased testosterone level Decreased Testosterone Le lynda Problem 11/27/2020 12:00:00 AM EDT [facility] ([facility]) [id number] Erectile dysfunction Erectile Dysfunction Problem 09/19/2020 12:00:00 AM EST [facility] ([facility]) [id number] Erectile dysfunction Erectile Dysfunction Problem 09/19/2020 12:00:00 AM EST [facility] ([facility]) [id number] Erectile dysfunction Erectile Dysfunction Problem 09/19/2020 12:00:00 AM EST [facility] ([facility]) [id number] Erectile dysfunction Erectile Dysfunction Problem 09/19/2020 12:00:00 AM EST [facility] ([facility]) [id number] Erectile dysfunction Erectile Dysfunction Problem 09/19/2020 12:00:00 AM EST [facility] ([facility]) [id number] Erectile dysfunction Erectile Dysfunction Problem 09/19/2020 12:00:00 AM EST [facility] ([facility]) 782554060 Erectile dysfunction Erectile Dysfunction Problem 09/19/2020 12:00:00 AM EST [facility] ([facility]) [id number] Erectile dysfunction Erectile Dysfunction Problem 09/19/2020 12:00:00 AM EST [facility] ([facility]) [id number] Erectile dysfunction Erectile Dysfunction Problem 09/19/2020 12:00:00 AM EST [facility] ([facility]) [id number] Erectile dysfunction Erectile Dysfunction Problem 09/19/2020 12:00:00 AM EST [facility] ([facility]) [id number] Erectile dysfunction Erectile Dysfunction Problem 09/19/2020 12:00:00 AM EST [facility] ([facility]) [id number] Erectile dysfunction Erectile Dysfunction Problem 09/19/2020 12:00:00 AM EST [facility] ([facility]) [id number] Erectile dysfunction Erectile Dysfunction Problem 09/19/2020 12:00:00 AM EST [facility] ([facility]) [id number] Erectile dysfunction Erectile Dysfunction Problem 09/19/2020 12:00:00 AM EST [facility] ([facility]) [id number] Erectile dysfunction Erectile Dysfunction Problem 09/19/2020 12:00:00 AM EST [facility] ([facility]) [id number] Erectile dysfunction Erectile Dysfunction Problem 09/19/2020 12:00:00 AM EST [facility] ([facility]) [id number] Erectile dysfunction Erectile Dysfunction Problem 09/19/2020 12:00:00 AM EST [facility] ([facility]) [id number] Erectile dysfunction Erectile Dysfunction Problem 09/19/2020 12:00:00 AM EST [facility] ([facility]) [id number] Primary erectile dysfunction Primary Erectile Dysfunct ion Problem 05/08/2020 12:00:00 AM EDT [facility] ([facility]) [id number] Primary erectile dysfunction Primary Erectile Dysfunct ion Problem 05/08/2020 12:00:00 AM EDT [facility] ([facility]) [id number] Primary erectile dysfunction Primary Erectile Dysfunct ion Problem 05/08/2020 12:00:00 AM EDT [facility] ([facility]) [id number] Primary erectile dysfunction Primary Erectile Dysfunct ion Problem 05/08/2020 12:00:00 AM EDT [facility] ([facility]) [id number] Primary erectile dysfunction Primary Erectile Dysfunct ion Problem 05/08/2020 12:00:00 AM EDT [facility] ([facility]) [id number] Primary erectile dysfunction Primary Erectile Dysfunct ion Problem 05/08/2020 12:00:00 AM EDT [facility] ([facility]) [id number] Primary erectile dysfunction Primary Erectile Dysfunct ion Problem 05/08/2020 12:00:00 AM EDT [facility] ([facility]) [id number] Primary erectile dysfunction Primary Erectile Dysfunct ion Problem 05/08/2020 12:00:00 AM EDT [facility] ([facility]) [id number] Primary erectile dysfunction Primary Erectile Dysfunct ion Problem 05/08/2020 12:00:00 AM EDT [facility] ([facility]) [id number] Primary erectile dysfunction Primary Erectile Dysfunct ion Problem 05/08/2020 12:00:00 AM EDT [facility] ([facility]) [id number] Primary erectile dysfunction Primary Erectile Dysfunct ion Problem 05/08/2020 12:00:00 AM EDT [facility] ([facility]) [id number] Primary erectile dysfunction Primary Erectile Dysfunct ion Problem 05/08/2020 12:00:00 AM EDT [facility] ([facility]) [id number] Primary erectile dysfunction Primary Erectile Dysfunct ion Problem 05/08/2020 12:00:00 AM EDT [facility] ([facility]) [id number] Primary erectile dysfunction Primary Erectile Dysfunct ion Problem 05/08/2020 12:00:00 AM EDT [facility] ([facility]) [id number] Primary erectile dysfunction Primary Erectile Dysfunct ion Problem 05/08/2020 12:00:00 AM EDT [facility] ([facility]) [id number] Primary erectile dysfunction Primary Erectile Dysfunct ion Problem 05/08/2020 12:00:00 AM EDT [facility] ([facility]) [id number] Primary erectile dysfunction Primary Erectile Dysfunct ion Problem 05/08/2020 12:00:00 AM EDT [facility] ([facility]) [id number] Primary erectile dysfunction Primary Erectile Dysfunct ion Problem 05/08/2020 12:00:00 AM EDT [facility] ([facility]) [id number] Primary erectile dysfunction Primary Erectile Dysfunct ion Problem 05/08/2020 12:00:00 AM EDT [facility] ([facility]) [id number] SNOMED CT Concept SNOMED CT Concept Problem 04/25 05:55:28 PM EDT [facility]LEX ([facility]) [id number] Depressive disorder Depressive Disorder Problem 1 05:55:28 PM EDT [facility] ([facility]) 860104194 SNOMED CT Concept SNOMED CT Concept Problem 04/25 05:55:28 PM EDT [facility] ([facility]) [id number] Depressive disorder Depressive Disorder Problem 1 05:55:28 PM EDT [facility] ([facility]) 983699487 SNOMED CT Concept SNOMED CT Concept Problem 04/25 05:55:28 PM EDT [facility] ([facility]) [id number] Depressive disorder Depressive Disorder Problem 1 05:55:28 PM EDT [facility] ([facility]) 245008916 SNOMED CT Concept SNOMED CT Concept Problem 04/25 05:55:28 PM EDT [facility] ([facility]) 72768263 Depressive disorder Depressive Disorder Problem 1 05:55:28 PM EDT [facility] ([facility]) [id number] SNOMED CT Concept SNOMED CT Concept Problem 04/25 05:55:28 PM EDT [facility] ([facility]) 51471029 Depressive disorder Depressive Disorder Problem 1 05:55:28 PM EDT [facility] ([facility]) [id number] Depressive disorder Depressive Disorder Problem 1 05:55:28 PM EDT [facility] ([facility]) 469301147 SNOMED CT Concept SNOMED CT Concept Problem 04/25 05:55:28 PM EDT [facility] ([facility]) 675971902 SNOMED CT Concept SNOMED CT Concept Problem 04/25 05:55:28 PM EDT [facility] ([facility]) 41183164 Depressive disorder Depressive Disorder Problem 1 05:55:28 PM EDT [facility] ([facility]) 531315738 SNOMED CT Concept SNOMED CT Concept Problem 04/25 05:55:28 PM EDT [facility] ([facility]) 78352195 Depressive disorder Depressive Disorder Problem 1 05:55:28 PM EDT [facility] ([facility]) [id number] SNOMED CT Concept SNOMED CT Concept Problem 04/25 05:55:28 PM EDT [facility] ([facility]) 26438941 Depressive disorder Depressive Disorder Problem 1 05:55:28 PM EDT [facility] ([facility]) 667927066 SNOMED CT Concept SNOMED CT Concept Problem 04/25 05:55:28 PM EDT [facility] ([facility]) [id number] Depressive disorder Depressive Disorder Problem 1 05:55:28 PM EDT [facility] ([facility]) 444218738 SNOMED CT Concept SNOMED CT Concept Problem 04/25 05:55:28 PM EDT [facility] ([facility]) 28667474 Depressive disorder Depressive Disorder Problem 1 05:55:28 PM EDT [facility] ([facility]) 546769004 SNOMED CT Concept SNOMED CT Concept Problem 04/25 05:55:28 PM EDT [facility] ([facility]) [id number] Depressive disorder Depressive Disorder Problem 1 05:55:28 PM EDT [facility] ([facility]) [id number] Depressive disorder Depressive Disorder Problem 1 05:55:28 PM EDT [facility] ([facility]) 335578705 SNOMED CT Concept SNOMED CT Concept Problem 04/25 05:55:28 PM EDT [facility] ([facility]) [id number] Depressive disorder Depressive Disorder Problem 1 05:55:28 PM EDT [facility] ([facility]) 578525355 SNOMED CT Concept SNOMED CT Concept Problem 04/25 05:55:28 PM EDT [facility] ([facility]) 552293948 SNOMED CT Concept SNOMED CT Concept Problem 04/25 05:55:28 PM EDT [facility] ([facility]) [id number] Depressive disorder Depressive Disorder Problem 1 05:55:28 PM EDT ALEX ([facility]) 642355789 SNOMED CT Concept SNOMED CT Concept Problem 04/25 05:55:28 PM EDT [facility] ([facility]) [id number] Depressive disorder Depressive Disorder Problem 1 05:55:28 PM EDT [facility] ([facility]) 028980724 SNOMED CT Concept SNOMED CT Concept Problem 04/25 05:55:28 PM EDT [facility] ([facility]) 23433726 Depressive disorder Depressive Disorder Problem 1 05:55:28 PM EDT [facility] ([facility]) 505203810 SNOMED CT Concept SNOMED CT Concept Problem 04/25 05:55:28 PM EDT [facility] ([facility]) [id number] Depressive disorder Depressive Disorder Problem 1 05:55:28 PM EDT [facility] ([facility]) 552707879 SNOMED CT Concept SNOMED CT Concept Problem 04/25 05:55:28 PM EDT [facility] ([facility]) [id number] Depressive disorder Depressive Disorder Problem 1 05:55:28 PM EDT [facility] ([facility]) Surgeries/Procedures Procedure Description Date Indications Data Source(s) XR, chest, 2 view 04/18/2021 12:00:00 AM EDT [facility]) XR, chest, 2 view 04/18/2021 12:00:00 AM EDT [facility]) XR, chest, 2 view 04/18/2021 12:00:00 AM EDT [place] ([facility]) XR, chest, 2 view 04/18/2021 12:00:00 AM EDT [facility]) [facility] 04/02/2021 12:00:00 AM EDT [facility] ([facility], ) SBSQ HOSPITAL CARE/DAY 25 MINUTES 04/01/2021 12:00:00 AM EDT [facility] ([facility]) INITIAL HOSPITAL CARE/DAY 30 MINUTES 03/31/2021 12:00: 00 AM EDT [facility] ([facility], ) Results ID Date Data Source [id number] 05/01/2021 01:23:00 PM EDT [place] ([facility]) Name Value Range Interpretation Code Description Data Huma rce(s) Supporting Document(s) sars-cov-2 negative negative Sars-cov-2 [place] ([facility]) ID Date Data Source [id number] 05/01/2021 01:23:00 PM EDT [facility]) Name Value Range Interpretation Code Description Data Huma rce(s) Supporting Document(s) sars-cov-2 negative negative Sars-cov-2 [facility]) ID Date Data Source [id number] 05/01/2021 01:22:00 PM EDT [facility] Name Value Range Interpretation Code Description Data Huma rce(s) Supporting Document(s) SARS coronavirus 2 RdRp gene [Presence] in Respiratory specimen by OC with probe detection Not detected [facility] This lab was ordered by [facility] and reported by [facility]. ID Date Data Source [id number] 03/31/2021 01:20:00 AM EDT [facility] Name Value Range Interpretation Code Description Data Huma rce(s) Supporting Document(s) SARS-CoV-2 (COVID 19) NEGATIVE - SARS-CoV-2 (COVID19) [facility] This lab was ordered by [facility] a nd reported by [facility]. ID Date Data Source [id number] 03/28/2021 02:51:00 PM EDT [place] ([facility]) Name Value Range Interpretation Code Description Data Huma rce(s) Supporting Document(s) SARS-CoV-2 (COVID-19) RNA [Presence] in Respiratory specimen by OC with probe detection not detected not detected Sars Cov 2 RNA [facility]) ID Date Data Source [id number] 03/28/2021 02:51:00 PM EDT [facility]) Name Value Range Interpretation Code Description Data Huma rce(s) Supporting Document(s) SARS-CoV-2 (COVID-19) RNA [Presence] in Respiratory specimen by OC with probe detection not detected not detected Sars Cov 2 RNA [facility]) ID Date Data Source [id number] 03/28/2021 02:51:00 PM EDT [facility]) Name Value Range Interpretation Code Description Data Huma rce(s) Supporting Document(s) SARS-CoV-2 (COVID-19) RNA [Presence] in Respiratory specimen by OC with probe detection not detected not detected Sars Cov 2 RNA [facility]) ID Date Data Source [id number] 03/28/2021 02:51:00 PM EDT [facility]) Name Value Range Interpretation Code Description Data Huma rce(s) Supporting Document(s) SARS-CoV-2 (COVID-19) RNA [Presence] in Respiratory specimen by OC with probe detection not detected not detected Sars Cov 2 RNA [facility]) ID Date Data Source [id number] 03/28/2021 02:51:00 PM EDT [facility]) Name Value Range Interpretation Code Description Data Huma rce(s) Supporting Document(s) SARS-CoV-2 (COVID-19) RNA [Presence] in Respiratory specimen by OC with probe detection not detected not detected Sars Cov 2 RNA [facility]) ID Date Data Source [id number] 03/28/2021 02:51:00 PM EDT [facility]) Name Value Range Interpretation Code Description Data Huma rce(s) Supporting Document(s) SARS-CoV-2 (COVID-19) RNA [Presence] in Respiratory specimen by OC with probe detection not detected not detected Sars Cov 2 RNA [facility] ([facility]) ID Date Data Source [id number] 03/30/2021 11:58:00 AM EDT [facility] Name Value Range Interpretation Code Description Data Huma rce(s) Supporting Document(s) [id number] NOT DETECTED [facility] A Not Detected result means that SARS-Co V-2 RNA was notpresent in the specimen above the limit of detection.Test Method: Nucleic Acid Amplification Test includingreverse wing scorer polymerase chain reaction (RT-PCR)and wing scorer mediated amplification (TMA). The testmethod meets the [...] health care providers andpatients using the following websites:[email or web address] [email or web address]-uzryq1Vrlz test has been authorized by the FDA under anEmergency Use Authorization (EUA) for use by authorizedlaboratories.Due to the current public health emergency, [facility] is accepting samples from appropriateclinical sources collected using wide variety ofswabs and transport media for COVID-19. Not detectedtest results derived from specimens received in non-commercially manufactured viral collection kits or thosenot yet authorized by FDA for COVID-19 testing should becautiously evaluated and take extra precautions such assuch as additional clinical monitoring, including collectionof an additional specimen.Additional information about COVID-19 can be foundat the [place] website:[email or web address]. ID Date Data Source [id number] 03/28/2021 02:51:00 PM EDT [facility] Name Value Range Interpretation Code Description Data Huma rce(s) Supporting Document(s) SARS-COV-2 RNA RESP QL OC+PROBE Not detected [facility] This lab was ordered by [facility] and reported by [facility] [place]. ID Date Data Source [id number] 02/12/2021 10:50:00 AM EDT [place] ([facility]) Name Value Range Interpretation Code Description Data Huma rce(s) Supporting Document(s) Hemoglobin A1c/Hemoglobin.total in Blood 5.7 % Hemoglobin a1C [place] ([facility]) estimated average glucose 117 mg/dL 60-110 Above high norm al Estimated Average Glucose [place] ([facility]) ID Date Data Source [id number] 02/12/2021 10:50:00 AM EDT [place] ([facility]) Name Value Range Interpretation Code Description Data Huma rce(s) Supporting Document(s) thyroid stimulating hormone 1.980 uIU/mL 0.358-3.740 Thyroid Stimulating Hormone [place] ([facility]) ID Date Data Source [id number] 02/12/2021 10:50:00 AM EDT [place] ([facility]) Name Value Range Interpretation Code Description Data Huma rce(s) Supporting Document(s) prostatic specific Ag monitor 0.30 NG/mL < 4.00 Prosta tic Specific Ag Monitor [place] ([facility]) ID Date Data Source [id number] 02/12/2021 10:50:00 AM EDT [place] ([facility]) Name Value Range Interpretation Code Description Data Huma rce(s) Supporting Document(s) testosterone 536 NG/dL [phone] Testosterone [facility] (No [facility]) ID Date Data Source [id number] 02/12/2021 10:50:00 AM EDT [facility]) Name Value Range Interpretation Code Description Data Huma rce(s) Supporting Document(s) creatinine for GFR 1.11 mg/dL 0.70-1.30 Creatinine for GF R [place] ([facility]) blood urea nitrogen 13 mg/dL 7-18 Blood Urea Nitro gen [facility] ([facility]) glucose, fasting 94 mg/dL 70-100 Glucose, Fasting AT [place] ([facility]) glomerular filtration rate > 60.0 >56 Glomerula r Filtration Rate [facility] ([facility]) potassium serum 4.3 mEq/L 3.5-5.1 Potassium Serum ATHE NA ([facility]) chloride level 101 mEq/L 98-107 Chloride Level [place] ([facility]) carbon dioxide level 28 mEq/L 21-32 Carbon Dioxide Level [facility] ([facility]) sodium level 135 mEq/L 136-145 Below low normal Sodium Level AT[facility] NA ([facility]) calcium level 8.8 mg/dL 8.5-10.1 Calcium Level [place] ( [facility]) anion gap 6 mEq/L 8-16 Below low normal Anion Gap [facility] ( [facility]) AST/SGOT 20 U/L 7-37 AST/SGOT [facility] ([facility]) alkaline phosphatase 114 U/L 45-117 Alkaline Phosph atase [facility] ([facility]) ALT/SGPT 18 U/L 12-78 ALT/SGPT [facility] ([facility]) albumin/globulin ratio Albumin/globu karlee Ratio [facility] ([facility]) bilirubin,total 0.3 mg/dL 0.2-1.0 Bilirubin,total [facility] ([facility]) total protein 7.9 gm/dL 6.4-8.2 Total Protein [facility] ( [facility]) albumin 3.6 gm/dL 3.2-5.2 Albumin [facility] ([facility]) ID Date Data Source [id number] 02/12/2021 10:50:00 AM EDT [place] ([facility]) Name Value Range Interpretation Code Description Data Huma rce(s) Supporting Document(s) white blood count 9.2 10 4.0-10.0 White Blood Count [facility] ([facility]) red blood count 5.60 10 4.30-6.10 Red Blood Count AT[facility] NA ([facility]) hemoglobin 13.4 g/dL 13.5-17.5 Below low normal Hemoglobin [facility] ( [facility]) mean corpuscular hemoglobin 23.9 pg 27.0-33.0 Below low nor mal Mean Corpuscular Hemoglobin [facility] ([facility]) mean corpuscular volume 79.8 fL 80.0-96.0 Below low normal Mean Corpuscular Volume [facility] ([facility]) hematocrit 44.7 % 42.0-52.0 Hematocrit [facility] ([facility]) neutrophils % 62.2 % 36.0-66.0 Neutrophils % [facility] ( [facility]) red cell distribution width 15.3 % 11.5-14.5 Above high no rmal Red Cell Distribution Width [facility] ([facility]) platelet count, automated 298 10 150-450 Platelet C ount, Automated [facility] ([facility]) mean corpuscular HGB conc 30.0 g/dL 32.0-36.5 Below low tino l Mean Corpuscular HGB Conc [facility] ([facility]) mono % 8.8 % 2.0-8.0 Above high normal [place] % [facility] ([facility]) eos % 1.0 % 0.0-3.0 Eos % [facility] ([facility]) baso % 0.3 % 0.0-1.0 Baso % [facility] ([facility]) lymph % 27.4 % 24.0-44.0 Lymph % [facility] ([facility]) neutrophils # 5.7 10 1.5-8.5 Neutrophils # [facility] ( [facility]) immature granulocyte % 0.3 % 0-3.0 Immature Gran ulocyte % A[facility] ([facility]) lymph # 2.5 10 1.5-5.0 Lymph # [facility] ([facility]) nucleated red blood cell % 0.0 % 0-0 Nucleated Red Blood Cell % [facility] ([facility]) eos # 0.1 10 0.0-0.5 Eos # [facility] ([facility]) baso # 0.0 10 0.0-0.2 Baso # [facility] ([facility]) mono # 0.8 10 0.0-0.8 [place] # [facility] ([facility]) ID Date Data Source [id number] 02/12/2021 10:50:00 AM EDT [place] ([facility]) Name Value Range Interpretation Code Description Data Huma rce(s) Supporting Document(s) estimated average glucose 117 mg/dL 60-110 Above high norm al Estimated Average Glucose [place] ([facility]) Hemoglobin A1c/Hemoglobin.total in Blood 5.7 % Hemoglobin a1C [place] ([facility]) ID Date Data Source [id number] 02/12/2021 10:50:00 AM EDT [place] ([facility]) Name Value Range Interpretation Code Description Data Huma rce(s) Supporting Document(s) thyroid stimulating hormone 1.980 uIU/mL 0.358-3.740 Thyroid Stimulating Hormone [place] ([facility]) ID Date Data Source [id number] 02/12/2021 10:50:00 AM EDT [place] ([facility]) Name Value Range Interpretation Code Description Data Huma rce(s) Supporting Document(s) prostatic specific Ag monitor 0.30 NG/mL < 4.00 Prosta tic Specific Ag Monitor [place] ([facility]) ID Date Data Source [id number] 02/12/2021 10:50:00 AM EDT [facility]) Name Value Range Interpretation Code Description Data Huma rce(s) Supporting Document(s) testosterone 536 NG/dL [phone] Testosterone [facility] ([facility]) ID Date Data Source [id number] 02/12/2021 10:50:00 AM EDT [place] ([facility]) Name Value Range Interpretation Code Description Data Huma rce(s) Supporting Document(s) glomerular filtration rate > 60.0 >56 Glomerula r Filtration Rate [facility] ([facility]) creatinine for GFR 1.11 mg/dL 0.70-1.30 Creatinine for GF R [facility] ([facility]) glucose, fasting 94 mg/dL 70-100 Glucose, Fasting AT [place] ([facility]) blood urea nitrogen 13 mg/dL 7-18 Blood Urea Nitro gen [facility] ([facility]) sodium level 135 mEq/L 136-145 Below low normal Sodium Level [place] ([facility]) chloride level 101 mEq/L 98-107 Chloride Level [place] ([facility]) carbon dioxide level 28 mEq/L 21-32 Carbon Dioxide Level [place] ([facility]) potassium serum 4.3 mEq/L 3.5-5.1 Potassium Serum [place] ([facility]) AST/SGOT 20 U/L 7-37 AST/SGOT [facility] ([facility]) calcium level 8.8 mg/dL 8.5-10.1 Calcium Level [facility] ( [facility]) alkaline phosphatase 114 U/L 45-117 Alkaline Phosph atase [facility] ([facility]) ALT/SGPT 18 U/L 12-78 ALT/SGPT [facility] ([facility]) anion gap 6 mEq/L 8-16 Below low normal Anion Gap [facility] ( [facility]) albumin 3.6 gm/dL 3.2-5.2 Albumin [facility] ([facility]) albumin/globulin ratio Albumin/globu karlee Ratio [facility] ([facility]) total protein 7.9 gm/dL 6.4-8.2 Total Protein [facility] ( [facility]) bilirubin,total 0.3 mg/dL 0.2-1.0 Bilirubin,total [facility] ([facility]) ID Date Data Source [id number] 02/12/2021 10:50:00 AM EDT [place] ([facility]) Name Value Range Interpretation Code Description Data Huma rce(s) Supporting Document(s) white blood count 9.2 10 4.0-10.0 White Blood Count [facility] ([facility]) red blood count 5.60 10 4.30-6.10 Red Blood Count [facility] NA ([facility]) mean corpuscular hemoglobin 23.9 pg 27.0-33.0 Below low nor mal Mean Corpuscular Hemoglobin [facility] ([facility]) mean corpuscular volume 79.8 fL 80.0-96.0 Below low normal Mean Corpuscular Volume [facility] ([facility]) hematocrit 44.7 % 42.0-52.0 Hematocrit [facility] ([facility]) hemoglobin 13.4 g/dL 13.5-17.5 Below low normal Hemoglobin [facility] ( [facility]) neutrophils % 62.2 % 36.0-66.0 Neutrophils % [facility] ( [facility]) mean corpuscular HGB conc 30.0 g/dL 32.0-36.5 Below low tino l Mean Corpuscular HGB Conc [facility] ([facility]) red cell distribution width 15.3 % 11.5-14.5 Above high no rmal Red Cell Distribution Width [facility] ([facility]) platelet count, automated 298 10 150-450 Platelet C ount, Automated [place] ([facility]) eos % 1.0 % 0.0-3.0 Eos % [facility] ([facility]) lymph % 27.4 % 24.0-44.0 Lymph % [facility] ([facility]) mono % 8.8 % 2.0-8.0 Above high normal [place] % [facility] ([facility]) neutrophils # 5.7 10 1.5-8.5 Neutrophils # [facility] ( [facility]) baso % 0.3 % 0.0-1.0 Baso % [place] ([facility]) nucleated red blood cell % 0.0 % 0-0 Nucleated Red Blood Cell % [facility] ([facility]) immature granulocyte % 0.3 % 0-3.0 Immature Gran ulocyte % [facility] ([facility]) mono # 0.8 10 0.0-0.8 [place] # [facility] ([facility]) eos # 0.1 10 0.0-0.5 Eos # [facility] ([facility]) baso # 0.0 10 0.0-0.2 Baso # [facility] ([facility]) lymph # 2.5 10 1.5-5.0 Lymph # [facility] ([facility]) ID Date Data Source [id number] 02/12/2021 10:50:00 AM EDT [place] ([facility]) Name Value Range Interpretation Code Description Data Huma rce(s) Supporting Document(s) estimated average glucose 117 mg/dL 60-110 Above high norm al Estimated Average Glucose [place] ([facility]) Hemoglobin A1c/Hemoglobin.total in Blood 5.7 % Hemoglobin a1C [place] ([facility]) ID Date Data Source [id number] 02/12/2021 10:50:00 AM EDT [place] ([facility]) Name Value Range Interpretation Code Description Data Huma rce(s) Supporting Document(s) thyroid stimulating hormone 1.980 uIU/mL 0.358-3.740 Thyroid Stimulating Hormone [place] ([facility]) ID Date Data Source [id number] 02/12/2021 10:50:00 AM EDT [place] ([facility]) Name Value Range Interpretation Code Description Data Huma rce(s) Supporting Document(s) prostatic specific Ag monitor 0.30 NG/mL < 4.00 Prosta tic Specific Ag Monitor [place] ([facility]) ID Date Data Source [id number] 02/12/2021 10:50:00 AM EDT [place] ([facility]) Name Value Range Interpretation Code Description Data Huma rce(s) Supporting Document(s) testosterone 536 NG/dL [phone] Testosterone [facility] ([facility]) ID Date Data Source [id number] 02/12/2021 10:50:00 AM EDT [place] ([facility]) Name Value Range Interpretation Code Description Data Huma rce(s) Supporting Document(s) blood urea nitrogen 13 mg/dL 7-18 Blood Urea Nitro gen [facility] ([facility]) creatinine for GFR 1.11 mg/dL 0.70-1.30 Creatinine for GF R [place] ([facility]) glucose, fasting 94 mg/dL 70-100 Glucose, Fasting AT [facility] ([facility]) glomerular filtration rate > 60.0 >56 Glomerula r Filtration Rate [place] ([facility]) chloride level 101 mEq/L 98-107 Chloride Level [place] ([facility]) potassium serum 4.3 mEq/L 3.5-5.1 Potassium Serum [place] ([facility]) sodium level 135 mEq/L 136-145 Below low normal Sodium Level [place] ([facility]) AST/SGOT 20 U/L 7-37 AST/SGOT [facility] ([facility]) carbon dioxide level 28 mEq/L 21-32 Carbon Dioxide Level [facility] ([facility]) calcium level 8.8 mg/dL 8.5-10.1 Calcium Level [place] ( [facility]) anion gap 6 mEq/L 8-16 Below low normal Anion Gap [facility] ( [facility]) alkaline phosphatase 114 U/L 45-117 Alkaline Phosph atase [facility] ([facility]) ALT/SGPT 18 U/L 12-78 ALT/SGPT [facility] ([facility]) total protein 7.9 gm/dL 6.4-8.2 Total Protein [facility] ( [facility]) bilirubin,total 0.3 mg/dL 0.2-1.0 Bilirubin,total [facility] ([facility]) albumin 3.6 gm/dL 3.2-5.2 Albumin [facility] ([facility]) albumin/globulin ratio Albumin/globu karlee Ratio [facility] ([facility]) ID Date Data Source [id number] 02/12/2021 10:50:00 AM EDT [place] ([facility]) Name Value Range Interpretation Code Description Data Huma rce(s) Supporting Document(s) hemoglobin 13.4 g/dL 13.5-17.5 Below low normal Hemoglobin [facility] ( [facility]) white blood count 9.2 10 4.0-10.0 White Blood Count [facility] ([facility]) red blood count 5.60 10 4.30-6.10 Red Blood Count [facility] NA ([facility]) mean corpuscular volume 79.8 fL 80.0-96.0 Below low normal Mean Corpuscular Volume [facility] ([facility]) mean corpuscular hemoglobin 23.9 pg 27.0-33.0 Below low nor mal Mean Corpuscular Hemoglobin [facility] ([facility]) hematocrit 44.7 % 42.0-52.0 Hematocrit [facility] ([facility]) mean corpuscular HGB conc 30.0 g/dL 32.0-36.5 Below low tino l Mean Corpuscular HGB Conc [place] ([facility]) neutrophils % 62.2 % 36.0-66.0 Neutrophils % [facility] ( [facility]) red cell distribution width 15.3 % 11.5-14.5 Above high no rmal Red Cell Distribution Width [facility] ([facility]) platelet count, automated 298 10 150-450 Platelet C ount, Automated [facility] ([facility]) eos % 1.0 % 0.0-3.0 Eos % [facility] ([facility]) mono % 8.8 % 2.0-8.0 Above high normal [place] % [facility] ([facility]) lymph % 27.4 % 24.0-44.0 Lymph % [facility] ([facility]) baso % 0.3 % 0.0-1.0 Baso % [facility] ([facility]) nucleated red blood cell % 0.0 % 0-0 Nucleated Red Blood Cell % [facility] ([facility]) neutrophils # 5.7 10 1.5-8.5 Neutrophils # [facility] ( [facility]) lymph # 2.5 10 1.5-5.0 Lymph # [facility] ([facility]) immature granulocyte % 0.3 % 0-3.0 Immature Gran ulocyte % [facility] ([facility]) baso # 0.0 10 0.0-0.2 Baso # [facility] ([facility]) eos # 0.1 10 0.0-0.5 Eos # [facility] ([facility]) mono # 0.8 10 0.0-0.8 [place] # [facility] ([facility]) ID Date Data Source [id number] 02/12/2021 10:50:00 AM EDT [place] ([facility]) Name Value Range Interpretation Code Description Data Huma rce(s) Supporting Document(s) estimated average glucose 117 mg/dL 60-110 Above high norm al Estimated Average Glucose [place] ([facility]) Hemoglobin A1c/Hemoglobin.total in Blood 5.7 % Hemoglobin a1C [place] ([facility]) ID Date Data Source [id number] 02/12/2021 10:50:00 AM EDT [place] ([facility]) Name Value Range Interpretation Code Description Data Huma rce(s) Supporting Document(s) thyroid stimulating hormone 1.980 uIU/mL 0.358-3.740 Thyroid Stimulating Hormone [place] ([facility]) ID Date Data Source [id number] 02/12/2021 10:50:00 AM EDT [place] ([facility]) Name Value Range Interpretation Code Description Data Huma rce(s) Supporting Document(s) prostatic specific Ag monitor 0.30 NG/mL < 4.00 Prosta tic Specific Ag Monitor [place] ([facility]) ID Date Data Source [id number] 02/12/2021 10:50:00 AM EDT [facility]) Name Value Range Interpretation Code Description Data Huma rce(s) Supporting Document(s) testosterone 536 NG/dL [id number] Testosterone [facility] (No [facility]) ID Date Data Source [id number] 02/12/2021 10:50:00 AM EDT [place] ([facility]) Name Value Range Interpretation Code Description Data Huma rce(s) Supporting Document(s) creatinine for GFR 1.11 mg/dL 0.70-1.30 Creatinine for GF R [place] ([facility]) blood urea nitrogen 13 mg/dL 7-18 Blood Urea Nitro gen [facility] ([facility]) glucose, fasting 94 mg/dL 70-100 Glucose, Fasting AT [facility]) chloride level 101 mEq/L 98-107 Chloride Level [place] ([facility]) potassium serum 4.3 mEq/L 3.5-5.1 Potassium Serum [place] ([facility]) sodium level 135 mEq/L 136-145 Below low normal Sodium Level [place] ([facility]) glomerular filtration rate > 60.0 >56 Glomerula r Filtration Rate [place] ([facility]) ALT/SGPT 18 U/L 12-78 ALT/SGPT [facility] ([facility]) anion gap 6 mEq/L 8-16 Below low normal Anion Gap [facility] ( [facility]) calcium level 8.8 mg/dL 8.5-10.1 Calcium Level [facility] ( [facility]) carbon dioxide level 28 mEq/L 21-32 Carbon Dioxide Level [facility] ([facility]) AST/SGOT 20 U/L 7-37 AST/SGOT [facility] ([facility]) alkaline phosphatase 114 U/L 45-117 Alkaline Phosph atase [facility] ([facility]) total protein 7.9 gm/dL 6.4-8.2 Total Protein [facility] ( [facility]) albumin 3.6 gm/dL 3.2-5.2 Albumin [facility] ([facility]) bilirubin,total 0.3 mg/dL 0.2-1.0 Bilirubin,total [facility] ([facility]) albumin/globulin ratio Albumin/globu karlee Ratio [place] ([facility]) ID Date Data Source [id number] 02/12/2021 10:50:00 AM EDT [place] ([facility]) Name Value Range Interpretation Code Description Data Huma rce(s) Supporting Document(s) red blood count 5.60 10 4.30-6.10 Red Blood Count [place] NA ([facility]) white blood count 9.2 10 4.0-10.0 White Blood Count [facility] ([facility]) hemoglobin 13.4 g/dL 13.5-17.5 Below low normal Hemoglobin [facility] ( [facility]) hematocrit 44.7 % 42.0-52.0 Hematocrit [facility] ([facility]) mean corpuscular volume 79.8 fL 80.0-96.0 Below low normal Mean Corpuscular Volume [facility] ([facility]) red cell distribution width 15.3 % 11.5-14.5 Above high no rmal Red Cell Distribution Width [facility] ([facility]) mean corpuscular HGB conc 30.0 g/dL 32.0-36.5 Below low tino l Mean Corpuscular HGB Conc [facility] ([facility]) mean corpuscular hemoglobin 23.9 pg 27.0-33.0 Below low nor mal Mean Corpuscular Hemoglobin [place] ([facility]) platelet count, automated 298 10 150-450 Platelet C ount, Automated [place] ([facility]) eos % 1.0 % 0.0-3.0 Eos % [place] ([facility]) mono % 8.8 % 2.0-8.0 Above high normal [place] % [facility] ([facility]) neutrophils % 62.2 % 36.0-66.0 Neutrophils % [facility] ( [facility]) lymph % 27.4 % 24.0-44.0 Lymph % [facility] ([facility]) nucleated red blood cell % 0.0 % 0-0 Nucleated Red Blood Cell % [facility] ([facility]) immature granulocyte % 0.3 % 0-3.0 Immature Gran ulocyte % [facility] ([facility]) baso % 0.3 % 0.0-1.0 Baso % [facility] ([facility]) neutrophils # 5.7 10 1.5-8.5 Neutrophils # [facility] ( [facility]) lymph # 2.5 10 1.5-5.0 Lymph # [facility] ([facility]) eos # 0.1 10 0.0-0.5 Eos # [facility] ([facility]) mono # 0.8 10 0.0-0.8 [place] # [facility] ([facility]) baso # 0.0 10 0.0-0.2 Baso # [facility] ([facility]) ID Date Data Source [id number] 02/12/2021 10:50:00 AM EDT [facility]) Name Value Range Interpretation Code Description Data Huma rce(s) Supporting Document(s) estimated average glucose 117 mg/dL 60-110 Above high norm al Estimated Average Glucose [facility]) Hemoglobin A1c/Hemoglobin.total in Blood 5.7 % Hemoglobin a1C [place] ([facility]) ID Date Data Source [id number] 02/12/2021 10:50:00 AM EDT [facility]) Name Value Range Interpretation Code Description Data Uhma rce(s) Supporting Document(s) thyroid stimulating hormone 1.980 uIU/mL 0.358-3.740 Thyroid Stimulating Hormone [place] ([facility]) ID Date Data Source [id number] 02/12/2021 10:50:00 AM EDT [place] ([facility]) Name Value Range Interpretation Code Description Data Huma rce(s) Supporting Document(s) prostatic specific Ag monitor 0.30 NG/mL < 4.00 Prosta tic Specific Ag Monitor [place] ([facility]) ID Date Data Source [id number] 02/12/2021 10:50:00 AM EDT [facility]) Name Value Range Interpretation Code Description Data Huma rce(s) Supporting Document(s) testosterone 536 NG/dL [id number] Testosterone [facility] (No [facility]) ID Date Data Source [id number] 02/12/2021 10:50:00 AM EDT [place] ([facility]) Name Value Range Interpretation Code Description Data Huma rce(s) Supporting Document(s) glucose, fasting 94 mg/dL 70-100 Glucose, Fasting AT [facility] ([facility]) glomerular filtration rate > 60.0 >56 Glomerula r Filtration Rate [facility] ([facility]) creatinine for GFR 1.11 mg/dL 0.70-1.30 Creatinine for GF R [place] ([facility]) blood urea nitrogen 13 mg/dL 7-18 Blood Urea Nitro gen [facility] ([facility]) potassium serum 4.3 mEq/L 3.5-5.1 Potassium Serum [facility] ([facility]) chloride level 101 mEq/L 98-107 Chloride Level [facility] ([facility]) carbon dioxide level 28 mEq/L 21-32 Carbon Dioxide Level [facility] ([facility]) sodium level 135 mEq/L 136-145 Below low normal Sodium Level [facility] ([facility]) calcium level 8.8 mg/dL 8.5-10.1 Calcium Level [place] ( [facility]) anion gap 6 mEq/L 8-16 Below low normal Anion Gap [facility] ( [facility]) ALT/SGPT 18 U/L 12-78 ALT/SGPT [facility] ([facility]) AST/SGOT 20 U/L 7-37 AST/SGOT [facility] ([facility]) alkaline phosphatase 114 U/L 45-117 Alkaline Phosph atase [facility] ([facility]) albumin/globulin ratio Albumin/globu karlee Ratio [place] ([facility]) total protein 7.9 gm/dL 6.4-8.2 Total Protein [facility] ( [facility]) bilirubin,total 0.3 mg/dL 0.2-1.0 Bilirubin,total [facility] ([facility]) albumin 3.6 gm/dL 3.2-5.2 Albumin [facility] ([facility]) ID Date Data Source [id number] 02/12/2021 10:50:00 AM EDT [place] ([facility]) Name Value Range Interpretation Code Description Data Huma rce(s) Supporting Document(s) white blood count 9.2 10 4.0-10.0 White Blood Count [facility] ([facility]) hemoglobin 13.4 g/dL 13.5-17.5 Below low normal Hemoglobin A[facility] ( [facility]) red blood count 5.60 10 4.30-6.10 Red Blood Count AT[facility] NA ([facility]) mean corpuscular hemoglobin 23.9 pg 27.0-33.0 Below low nor mal Mean Corpuscular Hemoglobin [facility] ([facility]) hematocrit 44.7 % 42.0-52.0 Hematocrit [facility] ([facility]) mean corpuscular volume 79.8 fL 80.0-96.0 Below low normal Mean Corpuscular Volume [facility] ([facility]) mean corpuscular HGB conc 30.0 g/dL 32.0-36.5 Below low tino l Mean Corpuscular HGB Conc [facility] ([facility]) red cell distribution width 15.3 % 11.5-14.5 Above high no rmal Red Cell Distribution Width [facility] ([facility]) lymph % 27.4 % 24.0-44.0 Lymph % [facility] ([facility]) platelet count, automated 298 10 150-450 Platelet C ount, Automated [facility] ([facility]) neutrophils % 62.2 % 36.0-66.0 Neutrophils % [facility] ( [facility]) mono % 8.8 % 2.0-8.0 Above high normal [place] % ALEX ([facility]) eos % 1.0 % 0.0-3.0 Eos % [facility] ([facility]) baso % 0.3 % 0.0-1.0 Baso % [facility] ([facility]) lymph # 2.5 10 1.5-5.0 Lymph # [facility] ([facility]) neutrophils # 5.7 10 1.5-8.5 Neutrophils # [facility] ( [facility]) nucleated red blood cell % 0.0 % 0-0 Nucleated Red Blood Cell % [facility] ([facility]) immature granulocyte % 0.3 % 0-3.0 Immature Gran ulocyte % ALEX ([facility]) baso # 0.0 10 0.0-0.2 Baso # ALEX ([facility]) eos # 0.1 10 0.0-0.5 Eos # ALEX ([facility]) mono # 0.8 10 0.0-0.8 [place] # ALEX ([facility]) ID Date Data Source [id number] 02/12/2021 10:50:00 AM EDT [place] ([facility]) Name Value Range Interpretation Code Description Data Huma rce(s) Supporting Document(s) estimated average glucose 117 mg/dL 60-110 Above high norm al Estimated Average Glucose [place] ([facility]) Hemoglobin A1c/Hemoglobin.total in Blood 5.7 % Hemoglobin a1C [place] ([facility]) ID Date Data Source [id number] 02/12/2021 10:50:00 AM EDT [place] ([facility]) Name Value Range Interpretation Code Description Data Huma rce(s) Supporting Document(s) thyroid stimulating hormone 1.980 uIU/mL 0.358-3.740 Thyroid Stimulating Hormone [place] ([facility]) ID Date Data Source [id number] 02/12/2021 10:50:00 AM EDT [place] ([facility]) Name Value Range Interpretation Code Description Data Huma rce(s) Supporting Document(s) prostatic specific Ag monitor 0.30 NG/mL < 4.00 Prosta tic Specific Ag Monitor [place] ([facility]) ID Date Data Source [id number] 02/12/2021 10:50:00 AM EDT [facility] ([facility]) Name Value Range Interpretation Code Description Data Huma rce(s) Supporting Document(s) testosterone 536 NG/dL [phone] Testosterone ALEX (No [facility]) ID Date Data Source [id number] 02/12/2021 10:50:00 AM EDT [facility] ([facility]) Name Value Range Interpretation Code Description Data Huma rce(s) Supporting Document(s) glucose, fasting 94 mg/dL 70-100 Glucose, Fasting AT [facility] ([facility]) glomerular filtration rate > 60.0 >56 Glomerula r Filtration Rate ALEX ([facility]) blood urea nitrogen 13 mg/dL 7-18 Blood Urea Nitro gen ALEX ([facility]) sodium level 135 mEq/L 136-145 Below low normal Sodium Level ATHE NA ([facility]) creatinine for GFR 1.11 mg/dL 0.70-1.30 Creatinine for GF R ALEX ([facility]) carbon dioxide level 28 mEq/L 21-32 Carbon Dioxide Level ALEX ([facility]) chloride level 101 mEq/L 98-107 Chloride Level ALEX ([facility]) potassium serum 4.3 mEq/L 3.5-5.1 Potassium Serum ATHE ([facility]) anion gap 6 mEq/L 8-16 Below low normal Anion Gap ALEX ( [facility]) calcium level 8.8 mg/dL 8.5-10.1 Calcium Level ALEX ( [facility]) AST/SGOT 20 U/L 7-37 AST/SGOT [facility] ([facility]) ALT/SGPT 18 U/L 12-78 ALT/SGPT [facility] ([facility]) alkaline phosphatase 114 U/L 45-117 Alkaline Phosph atase ALEX ([facility]) total protein 7.9 gm/dL 6.4-8.2 Total Protein ALEX ( [facility]) albumin 3.6 gm/dL 3.2-5.2 Albumin ALEX ([facility]) albumin/globulin ratio Albumin/globu karlee Ratio ALEX ([facility]) bilirubin,total 0.3 mg/dL 0.2-1.0 Bilirubin,total ATHE ([facility]) ID Date Data Source [id number] 02/12/2021 10:50:00 AM EDT [place] ([facility]) Name Value Range Interpretation Code Description Data Huma rce(s) Supporting Document(s) white blood count 9.2 10 4.0-10.0 White Blood Count ALEX ([facility]) hemoglobin 13.4 g/dL 13.5-17.5 Below low normal Hemoglobin ALEX ( [facility]) hematocrit 44.7 % 42.0-52.0 Hematocrit ALEX ([facility]) red blood count 5.60 10 4.30-6.10 Red Blood Count ATHE ([facility]) red cell distribution width 15.3 % 11.5-14.5 Above high no rmal Red Cell Distribution Width ALEX ([facility]) mean corpuscular hemoglobin 23.9 pg 27.0-33.0 Below low nor mal Mean Corpuscular Hemoglobin ALEX ([facility]) mean corpuscular volume 79.8 fL 80.0-96.0 Below low normal Mean Corpuscular Volume ALEX ([facility]) mean corpuscular HGB conc 30.0 g/dL 32.0-36.5 Below low tino l Mean Corpuscular HGB Conc ALEX ([facility]) neutrophils % 62.2 % 36.0-66.0 Neutrophils % ALEX ( [facility]) platelet count, automated 298 10 150-450 Platelet C ount, Automated ALEX ([facility]) lymph % 27.4 % 24.0-44.0 Lymph % ALEX ([facility]) immature granulocyte % 0.3 % 0-3.0 Immature Gran ulocyte % ALEX ([facility]) mono % 8.8 % 2.0-8.0 Above high normal [place] % ALEX ([facility]) baso % 0.3 % 0.0-1.0 Baso % ALEX ([facility]) eos % 1.0 % 0.0-3.0 Eos % ALEX ([facility]) mono # 0.8 10 0.0-0.8 [place] # ALEX ([facility]) nucleated red blood cell % 0.0 % 0-0 Nucleated Red Blood Cell % ALEX ([facility]) neutrophils # 5.7 10 1.5-8.5 Neutrophils # ALEX ( [facility]) lymph # 2.5 10 1.5-5.0 Lymph # ALEX ([facility]) eos # 0.1 10 0.0-0.5 Eos # ALEX ([facility]) baso # 0.0 10 0.0-0.2 Baso # ALEX ([facility]) ID Date Data Source [id number] 02/12/2021 10:50:00 AM EDT [place] ([facility]) Name Value Range Interpretation Code Description Data Huma rce(s) Supporting Document(s) prostatic specific Ag monitor 0.30 NG/mL < 4.00 Prosta tic Specific Ag Monitor [place] ([facility]) ID Date Data Source [id number] 02/12/2021 10:50:00 AM EDT [place] ([facility]) Name Value Range Interpretation Code Description Data Huma rce(s) Supporting Document(s) testosterone 536 NG/dL [phone] Testosterone ALEX ([facility]) ID Date Data Source [id number] 02/12/2021 10:50:00 AM EDT [place] ([facility]) Name Value Range Interpretation Code Description Data Huma rce(s) Supporting Document(s) glucose, fasting 94 mg/dL 70-100 Glucose, Fasting AT [facility] ([facility]) blood urea nitrogen 13 mg/dL 7-18 Blood Urea Nitro gen A[facility] ([facility]) sodium level 135 mEq/L 136-145 Below low normal Sodium Level ATHE NA ([facility]) potassium serum 4.3 mEq/L 3.5-5.1 Potassium Serum ATHE ([facility]) glomerular filtration rate > 60.0 >56 Glomerula r Filtration Rate ALEX ([facility]) creatinine for GFR 1.11 mg/dL 0.70-1.30 Creatinine for GF R ALEX ([facility]) carbon dioxide level 28 mEq/L 21-32 Carbon Dioxide Level ALEX ([facility]) calcium level 8.8 mg/dL 8.5-10.1 Calcium Level ALEX ( [facility]) AST/SGOT 20 U/L 7-37 AST/SGOT [facility] ([facility]) chloride level 101 mEq/L 98-107 Chloride Level ALEX ([facility]) anion gap 6 mEq/L 8-16 Below low normal Anion Gap ALEX ( [facility]) total protein 7.9 gm/dL 6.4-8.2 Total Protein ALEX ( [facility]) alkaline phosphatase 114 U/L 45-117 Alkaline Phosph atase ALEX ([facility]) albumin 3.6 gm/dL 3.2-5.2 Albumin ALEX ([facility]) ALT/SGPT 18 U/L 12-78 ALT/SGPT [facility] ([facility]) bilirubin,total 0.3 mg/dL 0.2-1.0 Bilirubin,total ATHE NA ([facility]) albumin/globulin ratio Albumin/globu karlee Ratio ALEX ([facility]) ID Date Data Source [id number] 02/12/2021 10:50:00 AM EDT [place] ([facility]) Name Value Range Interpretation Code Description Data Huma rce(s) Supporting Document(s) white blood count 9.2 10 4.0-10.0 White Blood Count [facility] ([facility]) red blood count 5.60 10 4.30-6.10 Red Blood Count ATHE ([facility]) mean corpuscular volume 79.8 fL 80.0-96.0 Below low normal Mean Corpuscular Volume ALEX ([facility]) hematocrit 44.7 % 42.0-52.0 Hematocrit ALEX ([facility]) hemoglobin 13.4 g/dL 13.5-17.5 Below low normal Hemoglobin ALEX ( [facility]) red cell distribution width 15.3 % 11.5-14.5 Above high no rmal Red Cell Distribution Width ALEX ([facility]) platelet count, automated 298 10 150-450 Platelet C ount, Automated ALEX ([facility]) mean corpuscular HGB conc 30.0 g/dL 32.0-36.5 Below low tino l Mean Corpuscular HGB Conc ALEX ([facility]) mean corpuscular hemoglobin 23.9 pg 27.0-33.0 Below low nor mal Mean Corpuscular Hemoglobin ALEX ([facility]) mono % 8.8 % 2.0-8.0 Above high normal [place] % ALEX ([facility]) eos % 1.0 % 0.0-3.0 Eos % ALEX ([facility]) lymph % 27.4 % 24.0-44.0 Lymph % ALEX ([facility]) neutrophils % 62.2 % 36.0-66.0 Neutrophils % ALEX ( [facility]) nucleated red blood cell % 0.0 % 0-0 Nucleated Red Blood Cell % ALEX ([facility]) immature granulocyte % 0.3 % 0-3.0 Immature Gran ulocyte % ALEX ([facility]) baso % 0.3 % 0.0-1.0 Baso % ALEX ([facility]) neutrophils # 5.7 10 1.5-8.5 [place] # ALEX ( [facility]) mono # 0.8 10 0.0-0.8 [place] # ALEX ([facility]) lymph # 2.5 10 1.5-5.0 Lymph # ALEX ([facility]) baso # 0.0 10 0.0-0.2 Baso # ALEX ([facility]) eos # 0.1 10 0.0-0.5 [place] # [facility] ([facility]) ID Date Data Source [id number] 02/12/2021 10:50:00 AM EDT [place] ([facility]) Name Value Range Interpretation Code Description Data Huma rce(s) Supporting Document(s) Hemoglobin A1c/Hemoglobin.total in Blood 5.7 % Hemoglobin a1C [place] ([facility]) estimated average glucose 117 mg/dL 60-110 Above high norm al Estimated Average Glucose [place] ([facility]) ID Date Data Source [id number] 02/12/2021 10:50:00 AM EDT [facility]) Name Value Range Interpretation Code Description Data Huma rce(s) Supporting Document(s) thyroid stimulating hormone 1.980 uIU/mL 0.358-3.740 Thyroid Stimulating Hormone [facility]) ID Date Data Source [id number] 02/12/2021 10:50:00 AM EDT [place] ([facility]) Name Value Range Interpretation Code Description Data Huma rce(s) Supporting Document(s) prostatic specific Ag monitor 0.30 NG/mL < 4.00 Prosta tic Specific Ag Monitor [place] ([facility]) ID Date Data Source [id number] 02/12/2021 10:50:00 AM EDT [facility]) Name Value Range Interpretation Code Description Data Huma rce(s) Supporting Document(s) testosterone 536 NG/dL [id number] Testosterone ALEX (No [facility]) ID Date Data Source [id number] 02/12/2021 10:50:00 AM EDT [facility]) Name Value Range Interpretation Code Description Data Huma rce(s) Supporting Document(s) creatinine for GFR 1.11 mg/dL 0.70-1.30 Creatinine for GF R [place] ([facility]) glucose, fasting 94 mg/dL 70-100 Glucose, Fasting AT [facility]) blood urea nitrogen 13 mg/dL 7-18 Blood Urea Nitro gen ALEX ([facility]) sodium level 135 mEq/L 136-145 Below low normal Sodium Level ATHE NA ([facility]) potassium serum 4.3 mEq/L 3.5-5.1 Potassium Serum ATHE ([facility]) glomerular filtration rate > 60.0 >56 Glomerula r Filtration Rate ALEX ([facility]) anion gap 6 mEq/L 8-16 Below low normal Anion Gap ALEX ( [facility]) carbon dioxide level 28 mEq/L 21-32 Carbon Dioxide Level ALEX ([facility]) calcium level 8.8 mg/dL 8.5-10.1 Calcium Level ALEX ( [facility]) chloride level 101 mEq/L 98-107 Chloride Level ALEX ([facility]) bilirubin,total 0.3 mg/dL 0.2-1.0 Bilirubin,total AT[facility] ([facility]) AST/SGOT 20 U/L 7-37 AST/SGOT [facility] ([facility]) ALT/SGPT 18 U/L 12-78 ALT/SGPT A[facility] ([facility]) alkaline phosphatase 114 U/L 45-117 Alkaline Phosph atase ALEX ([facility]) albumin 3.6 gm/dL 3.2-5.2 Albumin ALEX ([facility]) albumin/globulin ratio Albumin/globu karlee Ratio ALEX ([facility]) total protein 7.9 gm/dL 6.4-8.2 Total Protein ALEX ( [facility]) ID Date Data Source [id number] 02/12/2021 10:50:00 AM EDT [place] ([facility]) Name Value Range Interpretation Code Description Data Huma rce(s) Supporting Document(s) red blood count 5.60 10 4.30-6.10 Red Blood Count [facility] ([facility]) white blood count 9.2 10 4.0-10.0 White Blood Count [facility] ([facility]) hematocrit 44.7 % 42.0-52.0 Hematocrit ALEX ([facility]) mean corpuscular volume 79.8 fL 80.0-96.0 Below low normal Mean Corpuscular Volume ALEX ([facility]) hemoglobin 13.4 g/dL 13.5-17.5 Below low normal Hemoglobin ALEX ( [facility]) mean corpuscular hemoglobin 23.9 pg 27.0-33.0 Below low nor mal Mean Corpuscular Hemoglobin ALEX ([facility]) platelet count, automated 298 10 150-450 Platelet C ount, Automated [facility] ([facility]) mean corpuscular HGB conc 30.0 g/dL 32.0-36.5 Below low tino l Mean Corpuscular HGB Conc A[facility] ([facility]) red cell distribution width 15.3 % 11.5-14.5 Above high no rmal Red Cell Distribution Width ALEX ([facility]) neutrophils % 62.2 % 36.0-66.0 Neutrophils % ALEX ( [facility]) mono % 8.8 % 2.0-8.0 Above high normal [place] % ALEX ([facility]) lymph % 27.4 % 24.0-44.0 Lymph % ALEX ([facility]) eos % 1.0 % 0.0-3.0 Eos % ALEX ([facility]) baso % 0.3 % 0.0-1.0 Baso % ALEX ([facility]) immature granulocyte % 0.3 % 0-3.0 Immature Gran ulocyte % ALEX ([facility]) nucleated red blood cell % 0.0 % 0-0 Nucleated Red Blood Cell % ALEX ([facility]) mono # 0.8 10 0.0-0.8 [place] # ALEX ([facility]) neutrophils # 5.7 10 1.5-8.5 Neutrophils # ALEX ( [facility]) lymph # 2.5 10 1.5-5.0 Lymph # ALEX ([facility]) baso # 0.0 10 0.0-0.2 Baso # ALEX ([facility]) eos # 0.1 10 0.0-0.5 [place] # [facility] ([facility]) ID Date Data Source [id number] 02/12/2021 10:50:00 AM EDT [facility]) Name Value Range Interpretation Code Description Data Huma rce(s) Supporting Document(s) Hemoglobin A1c/Hemoglobin.total in Blood 5.7 % Hemoglobin a1C [place] ([facility]) estimated average glucose 117 mg/dL 60-110 Above high norm al Estimated Average Glucose [place] ([facility]) ID Date Data Source [id number] 02/12/2021 10:50:00 AM EDT [place] ([facility]) Name Value Range Interpretation Code Description Data Huma rce(s) Supporting Document(s) thyroid stimulating hormone 1.980 uIU/mL 0.358-3.740 Thyroid Stimulating Hormone [place] ([facility]) ID Date Data Source [id number] 02/12/2021 10:50:00 AM EDT [place] ([facility]) Name Value Range Interpretation Code Description Data Huma rce(s) Supporting Document(s) prostatic specific Ag monitor 0.30 NG/mL < 4.00 Prosta tic Specific Ag Monitor [place] ([facility]) ID Date Data Source [id number] 02/12/2021 10:50:00 AM EDT [facility]) Name Value Range Interpretation Code Description Data Huma rce(s) Supporting Document(s) testosterone 536 NG/dL [id number] Testosterone ALEX (No [facility]) ID Date Data Source [id number] 02/12/2021 10:50:00 AM EDT [facility]) Name Value Range Interpretation Code Description Data Huma rce(s) Supporting Document(s) blood urea nitrogen 13 mg/dL 7-18 Blood Urea Nitro gen [place] ([facility]) creatinine for GFR 1.11 mg/dL 0.70-1.30 Creatinine for GF R [place] ([facility]) glucose, fasting 94 mg/dL 70-100 Glucose, Fasting AT [place] ([facility]) glomerular filtration rate > 60.0 >56 Glomerula r Filtration Rate [facility] ([facility]) sodium level 135 mEq/L 136-145 Below low normal Sodium Level ATHE ([facility]) potassium serum 4.3 mEq/L 3.5-5.1 Potassium Serum ATHE ([facility]) chloride level 101 mEq/L 98-107 Chloride Level ALEX ([facility]) calcium level 8.8 mg/dL 8.5-10.1 Calcium Level ALEX ( [facility]) carbon dioxide level 28 mEq/L 21-32 Carbon Dioxide Level ALEX ([facility]) anion gap 6 mEq/L 8-16 Below low normal Anion Gap ALEX ( [facility]) AST/SGOT 20 U/L 7-37 AST/SGOT [facility] ([facility]) alkaline phosphatase 114 U/L 45-117 Alkaline Phosph atase ALEX ([facility]) ALT/SGPT 18 U/L 12-78 ALT/SGPT [facility] ([facility]) bilirubin,total 0.3 mg/dL 0.2-1.0 Bilirubin,total AT[facility] ([facility]) total protein 7.9 gm/dL 6.4-8.2 Total Protein ALEX ( [facility]) albumin 3.6 gm/dL 3.2-5.2 Albumin ALEX ([facility]) albumin/globulin ratio Albumin/globu karlee Ratio [facility] ([facility]) ID Date Data Source [id number] 02/12/2021 10:50:00 AM EDT [place] ([facility]) Name Value Range Interpretation Code Description Data Huma rce(s) Supporting Document(s) white blood count 9.2 10 4.0-10.0 White Blood Count [facility] ([facility]) red blood count 5.60 10 4.30-6.10 Red Blood Count [facility] ([facility]) hematocrit 44.7 % 42.0-52.0 Hematocrit ALEX ([facility]) hemoglobin 13.4 g/dL 13.5-17.5 Below low normal Hemoglobin ALEX ( [facility]) mean corpuscular volume 79.8 fL 80.0-96.0 Below low normal Mean Corpuscular Volume A[facility] ([facility]) mean corpuscular hemoglobin 23.9 pg 27.0-33.0 Below low nor mal Mean Corpuscular Hemoglobin A[facility] ([facility]) red cell distribution width 15.3 % 11.5-14.5 Above high no rmal Red Cell Distribution Width [facility] ([facility]) mean corpuscular HGB conc 30.0 g/dL 32.0-36.5 Below low tino l Mean Corpuscular HGB Conc [facility] ([facility]) mono % 8.8 % 2.0-8.0 Above high normal [place] % ALEX ([facility]) lymph % 27.4 % 24.0-44.0 Lymph % ALEX ([facility]) platelet count, automated 298 10 150-450 Platelet C ount, Automated [facility] ([facility]) neutrophils % 62.2 % 36.0-66.0 Neutrophils % ALEX ( [facility]) immature granulocyte % 0.3 % 0-3.0 Immature Gran ulocyte % ALEX ([facility]) baso % 0.3 % 0.0-1.0 Baso % [facility] ([facility]) eos % 1.0 % 0.0-3.0 Eos % [facility]LEX ([facility]) nucleated red blood cell % 0.0 % 0-0 Nucleated Red Blood Cell % ALEX ([facility]) neutrophils # 5.7 10 1.5-8.5 Neutrophils # ALEX ( [facility]) lymph # 2.5 10 1.5-5.0 Lymph # A[facility] ([facility]) baso # 0.0 10 0.0-0.2 Baso # [facility] ([facility]) eos # 0.1 10 0.0-0.5 Eos # [facility] ([facility]) mono # 0.8 10 0.0-0.8 [place] # ALEX ([facility]) ID Date Data Source [id number] 02/12/2021 10:50:00 AM EDT [place] ([facility]) Name Value Range Interpretation Code Description Data Huma rce(s) Supporting Document(s) estimated average glucose 117 mg/dL 60-110 Above high norm al Estimated Average Glucose [place] ([facility]) Hemoglobin A1c/Hemoglobin.total in Blood 5.7 % Hemoglobin a1C [place] ([facility]) ID Date Data Source [id number] 02/12/2021 10:50:00 AM EDT [facility]) Name Value Range Interpretation Code Description Data Huma rce(s) Supporting Document(s) thyroid stimulating hormone 1.980 uIU/mL 0.358-3.740 Thyroid Stimulating Hormone [place] ([facility]) ID Date Data Source [id number] 02/12/2021 10:50:00 AM EDT [facility]) Name Value Range Interpretation Code Description Data Huam rce(s) Supporting Document(s) prostatic specific Ag monitor 0.30 NG/mL < 4.00 Prosta tic Specific Ag Monitor [place] ([facility]) ID Date Data Source [id number] 02/12/2021 10:50:00 AM EDT [facility]) Name Value Range Interpretation Code Description Data Huma rce(s) Supporting Document(s) testosterone 536 NG/dL 241-827 Testosterone ALEX (No [facility]) ID Date Data Source [id number] 02/12/2021 10:50:00 AM EDT [facility]) Name Value Range Interpretation Code Description Data Huma rce(s) Supporting Document(s) glucose, fasting 94 mg/dL 70-100 Glucose, Fasting AT [facility]) creatinine for GFR 1.11 mg/dL 0.70-1.30 Creatinine for GF R [facility] ([facility]) glomerular filtration rate > 60.0 >56 Glomerula r Filtration Rate ALEX ([facility]) blood urea nitrogen 13 mg/dL 7-18 Blood Urea Nitro gen ALEX ([facility]) chloride level 101 mEq/L 98-107 Chloride Level ALEX ([facility]) sodium level 135 mEq/L 136-145 Below low normal Sodium Level ATHE NA ([facility]) potassium serum 4.3 mEq/L 3.5-5.1 Potassium Serum ATHE ([facility]) carbon dioxide level 28 mEq/L 21-32 Carbon Dioxide Level ALEX ([facility]) calcium level 8.8 mg/dL 8.5-10.1 Calcium Level ALEX ( [facility]) anion gap 6 mEq/L 8-16 Below low normal Anion Gap ALEX ( [facility]) alkaline phosphatase 114 U/L 45-117 Alkaline Phosph atase ALEX ([facility]) AST/SGOT 20 U/L 7-37 AST/SGOT [facility] ([facility]) ALT/SGPT 18 U/L 12-78 ALT/SGPT [facility] ([facility]) bilirubin,total 0.3 mg/dL 0.2-1.0 Bilirubin,total ATHE ([facility]) total protein 7.9 gm/dL 6.4-8.2 Total Protein ALEX ( [facility]) albumin 3.6 gm/dL 3.2-5.2 Albumin ALEX ([facility]) albumin/globulin ratio Albumin/globu karlee Ratio ALEX ([facility]) ID Date Data Source [id number] 02/12/2021 10:50:00 AM EDT [place] ([facility]) Name Value Range Interpretation Code Description Data Huma rce(s) Supporting Document(s) white blood count 9.2 10 4.0-10.0 White Blood Count ALEX ([facility]) red blood count 5.60 10 4.30-6.10 Red Blood Count ATHE ([facility]) hemoglobin 13.4 g/dL 13.5-17.5 Below low normal Hemoglobin ALEX ( [facility]) hematocrit 44.7 % 42.0-52.0 Hematocrit ALEX ([facility]) red cell distribution width 15.3 % 11.5-14.5 Above high no rmal Red Cell Distribution Width ALEX ([facility]) mean corpuscular volume 79.8 fL 80.0-96.0 Below low normal Mean Corpuscular Volume ALEX ([facility]) mean corpuscular hemoglobin 23.9 pg 27.0-33.0 Below low nor mal Mean Corpuscular Hemoglobin ALEX ([facility]) mean corpuscular HGB conc 30.0 g/dL 32.0-36.5 Below low tino l Mean Corpuscular HGB Conc ALEX ([facility]) platelet count, automated 298 10 150-450 Platelet C ount, Automated ALEX ([facility]) neutrophils % 62.2 % 36.0-66.0 Neutrophils % ALEX ( [facility]) mono % 8.8 % 2.0-8.0 Above high normal [place] % ALEX ([facility]) eos % 1.0 % 0.0-3.0 Eos % ALEX ([facility]) lymph % 27.4 % 24.0-44.0 Lymph % ALEX ([facility]) immature granulocyte % 0.3 % 0-3.0 Immature Gran ulocyte % ALEX ([facility]) baso % 0.3 % 0.0-1.0 Baso % ALEX ([facility]) nucleated red blood cell % 0.0 % 0-0 Nucleated Red Blood Cell % [facility] [facility] neutrophils # 5.7 10 1.5-8.5 Neutrophils # ALEX ( [facility]) eos # 0.1 10 0.0-0.5 Eos # ALEX ([facility]) lymph # 2.5 10 1.5-5.0 Lymph # ALEX ([facility]) mono # 0.8 10 0.0-0.8 [place] # ALEX ([facility]) baso # 0.0 10 0.0-0.2 Baso # ALEX ([facility]) ID Date Data Source [id number] 02/12/2021 10:50:00 AM EDT [place] ([facility]) Name Value Range Interpretation Code Description Data Huma rce(s) Supporting Document(s) estimated average glucose 117 mg/dL 60-110 Above high norm al Estimated Average Glucose [place] ([facility]) Hemoglobin A1c/Hemoglobin.total in Blood 5.7 % Hemoglobin a1C [place] ([facility]) ID Date Data Source [id number] 02/12/2021 10:50:00 AM EDT [facility]) Name Value Range Interpretation Code Description Data Huam rce(s) Supporting Document(s) thyroid stimulating hormone 1.980 uIU/mL 0.358-3.740 Thyroid Stimulating Hormone [facility]) ID Date Data Source [id number] 06/27/2020 03:30:00 PM EST [facility]) Name Value Range Interpretation Code Description Data Huma rce(s) Supporting Document(s) SARS-CoV-2 (COVID-19) RNA [Presence] in Respiratory specimen by OC with probe detection detected not detected Abnormal (applies to non-numeric results) Sars Cov 2 RNA [facility]) ID Date Data Source [id number] 06/27/2020 03:30:00 PM EST [place] ([facility]) Name Value Range Interpretation Code Description Data Huma rce(s) Supporting Document(s) SARS-CoV-2 (COVID-19) RNA [Presence] in Respiratory specimen by OC with probe detection detected not detected Abnormal (applies to non-numeric results) Sars Cov 2 RNA [facility]) ID Date Data Source [id number] 06/27/2020 03:30:00 PM EST [facility]) Name Value Range Interpretation Code Description Data Huma rce(s) Supporting Document(s) SARS-CoV-2 (COVID-19) RNA [Presence] in Respiratory specimen by OC with probe detection detected not detected Abnormal (applies to non-numeric results) Sars Cov 2 RNA [facility]) ID Date Data Source [id number] 06/27/2020 03:30:00 PM EST [facility]) Name Value Range Interpretation Code Description Data Huma rce(s) Supporting Document(s) SARS-CoV-2 (COVID-19) RNA [Presence] in Respiratory specimen by OC with probe detection detected not detected Abnormal (applies to non-numeric results) Sars Cov 2 RNA [facility]) ID Date Data Source [id number] 06/27/2020 03:30:00 PM EST [facility]) Name Value Range Interpretation Code Description Data Huma rce(s) Supporting Document(s) SARS-CoV-2 (COVID-19) RNA [Presence] in Respiratory specimen by OC with probe detection detected not detected Abnormal (applies to non-numeric results) Sars Cov 2 RNA [facility]) ID Date Data Source [id number] 06/27/2020 03:30:00 PM EST [facility]) Name Value Range Interpretation Code Description Data Huma rce(s) Supporting Document(s) SARS-CoV-2 (COVID-19) RNA [Presence] in Respiratory specimen by OC with probe detection detected not detected Abnormal (applies to non-numeric results) Sars Cov 2 RNA [facility]) ID Date Data Source [id number] 06/27/2020 03:30:00 PM EST [facility]) Name Value Range Interpretation Code Description Data Huma rce(s) Supporting Document(s) SARS-CoV-2 (COVID-19) RNA [Presence] in Respiratory specimen by OC with probe detection detected not detected Abnormal (applies to non-numeric results) Sars Cov 2 RNA [facility]) ID Date Data Source [id number] 06/27/2020 03:30:00 PM EST [facility]) Name Value Range Interpretation Code Description Data Huma rce(s) Supporting Document(s) SARS-CoV-2 (COVID-19) RNA [Presence] in Respiratory specimen by OC with probe detection detected not detected Abnormal (applies to non-numeric results) Sars Cov 2 RNA [facility]) ID Date Data Source [id number] 06/27/2020 03:30:00 PM EST [facility]) Name Value Range Interpretation Code Description Data Huma rce(s) Supporting Document(s) SARS-CoV-2 (COVID-19) RNA [Presence] in Respiratory specimen by OC with probe detection detected not detected Abnormal (applies to non-numeric results) Sars Cov 2 RNA [facility]) ID Date Data Source [id number] 06/27/2020 03:30:00 PM EST [facility]) Name Value Range Interpretation Code Description Data Huma rce(s) Supporting Document(s) SARS-CoV-2 (COVID-19) RNA [Presence] in Respiratory specimen by OC with probe detection detected not detected Abnormal (applies to non-numeric results) Sars Cov 2 RNA [facility]) ID Date Data Source [id number] 06/27/2020 03:30:00 PM EST [facility]) Name Value Range Interpretation Code Description Data Huma rce(s) Supporting Document(s) SARS-CoV-2 (COVID-19) RNA [Presence] in Respiratory specimen by OC with probe detection detected not detected Abnormal (applies to non-numeric results) Sars Cov 2 RNA [facility]) ID Date Data Source [id number] 06/27/2020 03:30:00 PM EST [facility]) Name Value Range Interpretation Code Description Data Huma rce(s) Supporting Document(s) SARS-CoV-2 (COVID-19) RNA [Presence] in Respiratory specimen by OC with probe detection detected not detected Abnormal (applies to non-numeric results) Sars Cov 2 RNA [facility]) ID Date Data Source [id number] 06/27/2020 03:30:00 PM EST [facility]) Name Value Range Interpretation Code Description Data Huma rce(s) Supporting Document(s) SARS-CoV-2 (COVID-19) RNA [Presence] in Respiratory specimen by OC with probe detection detected not detected Abnormal (applies to non-numeric results) Sars Cov 2 RNA [facility]) ID Date Data Source [id number] 06/27/2020 03:30:00 PM EST [facility]) Name Value Range Interpretation Code Description Data Huma rce(s) Supporting Document(s) SARS-CoV-2 (COVID-19) RNA [Presence] in Respiratory specimen by OC with probe detection detected not detected Abnormal (applies to non-numeric results) Sars Cov 2 RNA [facility]) ID Date Data Source [id number] 06/27/2020 03:30:00 PM EST [facility]) Name Value Range Interpretation Code Description Data Huma rce(s) Supporting Document(s) SARS-CoV-2 (COVID-19) RNA [Presence] in Respiratory specimen by OC with probe detection detected not detected Abnormal (applies to non-numeric results) Sars Cov 2 RNA [facility]) ID Date Data Source [id number] 06/27/2020 03:30:00 PM EST [facility]) Name Value Range Interpretation Code Description Data Huma rce(s) Supporting Document(s) SARS-CoV-2 (COVID-19) RNA [Presence] in Respiratory specimen by OC with probe detection detected not detected Abnormal (applies to non-numeric results) Sars Cov 2 RNA [facility] ([facility]) ID Date Data Source [id number] 06/27/2020 03:30:00 PM EST [place] ([facility]) Name Value Range Interpretation Code Description Data Huma rce(s) Supporting Document(s) SARS-CoV-2 (COVID-19) RNA [Presence] in Respiratory specimen by OC with probe detection detected not detected Abnormal (applies to non-numeric results) Sars Cov 2 RNA [place] ([facility]) ID Date Data Source [id number] 06/27/2020 03:30:00 PM EST [place] ([facility]) Name Value Range Interpretation Code Description Data Huma rce(s) Supporting Document(s) SARS-CoV-2 (COVID-19) RNA [Presence] in Respiratory specimen by OC with probe detection detected not detected Abnormal (applies to non-numeric results) Sars Cov 2 RNA [facility] ([facility]) ID Date Data Source [id number] 06/27/2020 03:30:00 PM EST [facility] Name Value Range Interpretation Code Description Data Huma rce(s) Supporting Document(s) SARS-COV-2 RNA RESP QL OC+PROBE [facility] This lab was ordered by [facility] and reported by [facility]. ID Date Data Source [id number] 03/27/2020 02:58:43 PM EDT [facility] Measurements & CalculationsHeight: 72 inches (6 [...] (ER) or urgent care clinic? Yes - [facility] Emergency room (ER) or urgent care [...] barriers: nonePatient's Language used in visit: YesLanguage: maori Pain AssessmentPain ScaleNumeric Rating Scale: 5 / [...] on the note from Ortho 03/20/20:They list [place] and T3 on his med list. He has not been taking them. [employer] relfects this.They also started him on gabapentin. [...] during this visit, including review of any qagt-pld-nqjmmjn medications, herbal therapies, and/or supplements.Allergy ReviewAllergy List [...] essment & Plan Problems:Assessed:Sciatica, left side (ICD-724.3) (OVL28-X02.32) Assessment: Instructions: And spinal stenosis.Seeing Ortho for [...] Orders:Adult - Ofc Vst, EST, Level III [CPT-81274] Medications:LYRICA 200 MG ORAL CAPSULE (PREGABALIN) One po qd. #30[Capsule] x 1 Route:ORAL Entered and Authorized by: Blayne Mayfield MD Method used: Electronically to [facility] (retail) [address] [place] [address] Note to Pharmacy: Route: ORAL; RxID: [id number] signed by Blayne Mayfield MD on 03/27/2020 at 3:38 PM Name Value Range Interpretation Code Description Data Huma rce(s) Supporting Document(s) Procedure Social History No Information Vital Signs ID Date Data Source [id number] Name Value Range Interpretation Code Description Data Source(s) Body height 72 [in_i] 72 [in_i] [facility]) Body height 72 [in_i] 72 [in_i] [place] ([facility]) Body height 72 [in_i] 72 [in_i] [facility] ([facility]) Body height 72 [in_i] 72 [in_i] [facility] ([facility]) Body height 72 [in_i] 72 [in_i] [facility] ([facility]) Body height 72 [in_i] 72 [in_i] [facility] ([facility]) Diastolic blood pressure 81 mm[Hg] 81 mm[Hg] [facility] ([facility]) Body height 72 [in_i] 72 [in_i] [place] ([facility]) Body mass index (BMI) [Ratio] 29.1 kg/m2 29.1 k g/m2 [place] ([facility]) Systolic blood pressure 132 mm[Hg] 132 mm[Hg] [place] ([facility]) Body weight 3432 [oz_av] 3432 [oz_av] [facility] ([facility]) Diastolic blood pressure 81 mm[Hg] 81 mm[Hg] [facility] ([facility]) Body height 72 [in_i] 72 [in_i] [place] ([facility]) Body weight 3432 [oz_av] 3432 [oz_av] [facility] ([facility]) Body mass index (BMI) [Ratio] 29.1 kg/m2 29.1 k g/m2 [facility] ([facility]) Systolic blood pressure 132 mm[Hg] 132 mm[facility]Hg] [facility] Diastolic blood pressure 81 mm[Hg] 81 mm[Hg] [facility] ([facility]) Body height 72 [in_i] 72 [in_i] [facility] ([facility]) Body mass index (BMI) [Ratio] 29.1 kg/m2 29.1 k g/m2 [facility] ([facility]) Systolic blood pressure 132 mm[Hg] 132 mm[Hg] [place] ([facility]) Body weight 3432 [oz_av] 3432 [oz_av] [facility] ([facility]) Diastolic blood pressure 81 mm[Hg] 81 mm[Hg] [facility] ([facility]) Body height 72 [in_i] 72 [in_i] [facility] ([facility]) Body mass index (BMI) [Ratio] 29.1 kg/m2 29.1 k g/m2 [facility] ([facility]) Systolic blood pressure 132 mm[Hg] 132 mm[Hg] A [place] ([facility]) Body weight 3432 [oz_av] 3432 [oz_av] [facility] ([facility]) Diastolic blood pressure 81 mm[Hg] 81 mm[Hg] [facility] ([facility]) Body height 72 [in_i] 72 [in_i] [facility] ([facility]) Body mass index (BMI) [Ratio] 29.1 kg/m2 29.1 k g/m2 [facility] ([facility]) Systolic blood pressure 132 mm[Hg] 132 mm[Hg] [place] ([facility]) Body weight 3432 [oz_av] 3432 [oz_av] [facility] ([facility]) Diastolic blood pressure 81 mm[Hg] 81 mm[Hg] [facility] ([facility]) Body height 72 [in_i] 72 [in_i] [facility] ([facility]) Body mass index (BMI) [Ratio] 29.1 kg/m2 29.1 k g/m2 [facility] ([facility]) Systolic blood pressure 132 mm[Hg] 132 mm[Hg] A [place] ([facility]) Body weight 3432 [oz_av] 3432 [oz_av] [facility] ([facility]) Diastolic blood pressure 81 mm[Hg] 81 mm[Hg] [facility] ([facility]) Body height 72 [in_i] 72 [in_i] [facility] ([facility]) Body mass index (BMI) [Ratio] 29.1 kg/m2 29.1 k g/m2 [facility] ([facility]) Systolic blood pressure 132 mm[Hg] 132 mm[Hg] A [place] ([facility]) Body weight 3432 [oz_av] 3432 [oz_av] [facility] ([facility]) Diastolic blood pressure 74 mm[Hg] 74 mm[Hg] [facility] ([facility]) Body height 72 [in_i] 72 [in_i] [facility] ([facility]) Systolic blood pressure 122 mm[Hg] 122 mm[Hg] [facility] [place] ([facility]) Diastolic blood pressure 74 mm[Hg] 74 mm[Hg] [facility] ([facility]) Body height 72 [in_i] 72 [in_i] [facility] ([facility]) Systolic blood pressure 122 mm[Hg] 122 mm[Hg] [facility] [place] ([facility]) Body height 72 [in_i] 72 [in_i] [facility] ([facility]) Systolic blood pressure 122 mm[Hg] 122 mm[Hg] [facility] [place] ([facility]) Diastolic blood pressure 74 mm[Hg] 74 mm[Hg] [facility] ([facility]) Diastolic blood pressure 74 mm[Hg] 74 mm[Hg] [facility] ([facility]) Body height 72 [in_i] 72 [in_i] [facility] ([facility]) Systolic blood pressure 122 mm[Hg] 122 mm[Hg] [facility] [place] ([facility]) Diastolic blood pressure 74 mm[Hg] 74 mm[Hg] [facility] ([facility]) Body height 72 [in_i] 72 [in_i] [facility] ([facility]) Systolic blood pressure 122 mm[Hg] 122 mm[Hg] [facility] Diastolic blood pressure 74 mm[Hg] 74 mm[Hg] [facility] ([facility]) Body height 72 [in_i] 72 [in_i] [facility] ([facility]) Systolic blood pressure 122 mm[Hg] 122 mm[Hg] [facility] Diastolic blood pressure 74 mm[Hg] 74 mm[Hg] [facility] ([facility]) Body height 72 [in_i] 72 [in_i] [facility] ([facility]) Systolic blood pressure 122 mm[Hg] 122 mm[Hg] [facility] [place] ([facility]) Diastolic blood pressure 74 mm[Hg] 74 mm[Hg] [facility] ([facility]) Body height 72 [in_i] 72 [in_i] [facility] ([facility]) Systolic blood pressure 122 mm[Hg] 122 mm[Hg] [facility] Diastolic blood pressure 73 mm[Hg] 73 mm[Hg] [facility] ([facility]) Body height 72 [in_i] 72 [in_i] [facility] ([facility]) Body mass index (BMI) [Ratio] 28.9 kg/m2 28.9 k g/m2 [facility] ([facility]) Systolic blood pressure 121 mm[Hg] 121 mm[Hg] [facility] [place] ([facility]) Body weight 3408 [oz_av] 3408 [oz_av] [facility] ([facility]) Body weight 3408 [oz_av] 3408 [oz_av] [facility] ([facility]) Diastolic blood pressure 73 mm[Hg] 73 mm[Hg] [facility] ([facility]) Body height 72 [in_i] 72 [in_i] [facility] ([facility]) Body mass index (BMI) [Ratio] 28.9 kg/m2 28.9 k g/m2 [facility] ([facility]) Systolic blood pressure 121 mm[Hg] 121 mm[Hg] [facility] Diastolic blood pressure 73 mm[Hg] 73 mm[Hg] [facility] ([facility]) Body height 72 [in_i] 72 [in_i] [facility] ([facility]) Body mass index (BMI) [Ratio] 28.9 kg/m2 28.9 k g/m2 [facility] ([facility]) Systolic blood pressure 121 mm[Hg] 121 mm[Hg] A [facility] ([facility]) Body weight 3408 [oz_av] 3408 [oz_av] ALEX ([facility]) Diastolic blood pressure 73 mm[Hg] 73 mm[Hg] [facility] ([facility]) Body height 72 [in_i] 72 [in_i] [facility] ([facility]) Body mass index (BMI) [Ratio] 28.9 kg/m2 28.9 k g/m2 [facility] ([facility]) Systolic blood pressure 121 mm[Hg] 121 mm[Hg] [facility] Body weight 3408 [oz_av] 3408 [oz_av] [facility] ([facility]) Diastolic blood pressure 73 mm[Hg] 73 mm[Hg] [facility] ([facility]) Body height 72 [in_i] 72 [in_i] [facility] ([facility]) Body mass index (BMI) [Ratio] 28.9 kg/m2 28.9 k g/m2 [facility] ([facility]) Systolic blood pressure 121 mm[Hg] 121 mm[Hg] [facility] [place] ([facility]) Body weight 3408 [oz_av] 3408 [oz_av] A[facility] ([facility]) Diastolic blood pressure 73 mm[Hg] 73 mm[Hg] A[facility] ([facility]) Body height 72 [in_i] 72 [in_i] [facility] ([facility]) Body mass index (BMI) [Ratio] 28.9 kg/m2 28.9 k g/m2 [facility] ([facility]) Systolic blood pressure 121 mm[Hg] 121 mm[Hg] A [place] ([facility]) Body weight 3408 [oz_av] 3408 [oz_av] [facility] ([facility]) Diastolic blood pressure 73 mm[Hg] 73 mm[Hg] [facility] ([facility]) Body height 72 [in_i] 72 [in_i] [facility] ([facility]) Body mass index (BMI) [Ratio] 28.9 kg/m2 28.9 k g/m2 [facility] ([facility]) Systolic blood pressure 121 mm[Hg] 121 mm[Hg] [facility] Body weight 3408 [oz_av] 3408 [oz_av] [facility] ([facility]) Diastolic blood pressure 73 mm[Hg] 73 mm[Hg] [facility] ([facility]) Body height 72 [in_i] 72 [in_i] [facility] ([facility]) Body mass index (BMI) [Ratio] 28.9 kg/m2 28.9 k g/m2 [facility] ([facility]) Systolic blood pressure 121 mm[Hg] 121 mm[Hg] [facility] Body weight 3408 [oz_av] 3408 [oz_av] [facility] ([facility]) Diastolic blood pressure 73 mm[Hg] 73 mm[Hg] [facility] ([facility]) Body height 72 [in_i] 72 [in_i] [facility] ([facility]) Body mass index (BMI) [Ratio] 28.9 kg/m2 28.9 k g/m2 [facility] ([facility]) Systolic blood pressure 121 mm[Hg] 121 mm[Hg] A [place] ([facility]) Body weight 3408 [oz_av] 3408 [oz_av] [facility] ([facility]) Diastolic blood pressure 91 mm[Hg] 91 mm[Hg] [facility] ([facility]) Body height 72 [in_i] 72 [in_i] [facility] ([facility]) Body mass index (BMI) [Ratio] 29.3 kg/m2 29.3 k g/m2 [facility] ([facility]) Systolic blood pressure 133 mm[Hg] 133 mm[Hg] A [place] ([facility]) Body weight 3462 [oz_av] 3462 [oz_av] [facility] ([facility]) Diastolic blood pressure 91 mm[Hg] 91 mm[Hg] [facility] ([facility]) Body height 72 [in_i] 72 [in_i] [facility] ([facility]) Body mass index (BMI) [Ratio] 29.3 kg/m2 29.3 k g/m2 [facility] ([facility]) Systolic blood pressure 133 mm[Hg] 133 mm[Hg] [facility] Body weight 3462 [oz_av] 3462 [oz_av] [facility] ([facility]) Body mass index (BMI) [Ratio] 29.3 kg/m2 29.3 k g/m2 [facility] ([facility]) Diastolic blood pressure 91 mm[Hg] 91 mm[Hg] [facility] ([facility]) Body height 72 [in_i] 72 [in_i] [facility] ([facility]) Systolic blood pressure 133 mm[Hg] 133 mm[Hg] A [place] ([facility]) Body weight 3462 [oz_av] 3462 [oz_av] [facility] ([facility]) Diastolic blood pressure 91 mm[Hg] 91 mm[Hg] [facility] ([facility]) Body height 72 [in_i] 72 [in_i] [facility] ([facility]) Body weight 3462 [oz_av] 3462 [oz_av] [facility] ([facility]) Body mass index (BMI) [Ratio] 29.3 kg/m2 29.3 k g/m2 [facility] ([facility]) Systolic blood pressure 133 mm[Hg] 133 mm[Hg] A [facility] ([facility]) Diastolic blood pressure 91 mm[Hg] 91 mm[Hg] [facility] ([facility]) Body height 72 [in_i] 72 [in_i] [facility] ([facility]) Body mass index (BMI) [Ratio] 29.3 kg/m2 29.3 k g/m2 [facility] ([facility]) Systolic blood pressure 133 mm[Hg] 133 mm[Hg] A [facility] ([facility]) Body weight 3462 [oz_av] 3462 [oz_av] [facility] ([facility]) Diastolic blood pressure 91 mm[Hg] 91 mm[Hg] [facility] ([facility]) Body height 72 [in_i] 72 [in_i] [facility] ([facility]) Body mass index (BMI) [Ratio] 29.3 kg/m2 29.3 k g/m2 [facility] ([facility]) Systolic blood pressure 133 mm[Hg] 133 mm[Hg] A [facility] ([facility]) Body weight 3462 [oz_av] 3462 [oz_av] [facility] ([facility]) Diastolic blood pressure 91 mm[Hg] 91 mm[Hg] [facility] ([facility]) Body height 72 [in_i] 72 [in_i] [facility] ([facility]) Body mass index (BMI) [Ratio] 29.3 kg/m2 29.3 k g/m2 [facility] ([facility]) Systolic blood pressure 133 mm[Hg] 133 mm[Hg] [facility] Body weight 3462 [oz_av] 3462 [oz_av] [facility] ([facility]) Diastolic blood pressure 91 mm[Hg] 91 mm[Hg] [facility] ([facility]) Body height 72 [in_i] 72 [in_i] [facility] ([facility]) Body mass index (BMI) [Ratio] 29.3 kg/m2 29.3 k g/m2 [facility] ([facility]) Systolic blood pressure 133 mm[Hg] 133 mm[Hg] [facility] Body weight 3462 [oz_av] 3462 [oz_av] [facility] ([facility]) Diastolic blood pressure 91 mm[Hg] 91 mm[Hg] [facility] ([facility]) Body height 72 [in_i] 72 [in_i] [facility] ([facility]) Body mass index (BMI) [Ratio] 29.3 kg/m2 29.3 k g/m2 [facility] ([facility]) Systolic blood pressure 133 mm[Hg] 133 mm[Hg] A [facility] ([facility]) Body weight 3462 [oz_av] 3462 [oz_av] [facility] ([facility]) Diastolic blood pressure 91 mm[Hg] 91 mm[Hg] [facility] ([facility]) Body height 72 [in_i] 72 [in_i] [facility] ([facility]) Body mass index (BMI) [Ratio] 29.3 kg/m2 29.3 k g/m2 [facility] ([facility]) Systolic blood pressure 133 mm[Hg] 133 mm[Hg] A [facility] ([facility]) Body weight 3462 [oz_av] 3462 [oz_av] [facility] ([facility]) Diastolic blood pressure 91 mm[Hg] 91 mm[Hg] [facility] ([facility]) Body height 72 [in_i] 72 [in_i] [facility] ([facility]) Body mass index (BMI) [Ratio] 29.3 kg/m2 29.3 k g/m2 [facility] ([facility]) Systolic blood pressure 133 mm[Hg] 133 mm[Hg] A [facility] ([facility]) Body weight 3462 [oz_av] 3462 [oz_av] [facility] ([facility]) Body height 72 [in_i] 72 [in_i] [facility] ([facility]) Body height 72 [in_i] 72 [in_i] A[facility] ([facility]) Body height 72 [in_i] 72 [in_i] [facility] ([facility]) Body height 72 [in_i] 72 [in_i] [facility] ([facility]) Body height 72 [in_i] 72 [in_i] [facility] ([facility]) Body height 72 [in_i] 72 [in_i] [facility] ([facility]) Body height 72 [in_i] 72 [in_i] [facility] ([facility]) Body height 72 [in_i] 72 [in_i] [facility] ([facility]) Body height 72 [in_i] 72 [in_i] [facility] ([facility]) Body height 72 [in_i] 72 [in_i] [facility] ([facility]) Body height 72 [in_i] 72 [in_i] [facility] ([facility]) Body height 72 [in_i] 72 [in_i] [facility] ([facility]) Body height 72 [in_i] 72 [in_i] [facility] ([facility]) Body height 72 [in_i] 72 [in_i] [facility] ([facility]) Body height 72 [in_i] 72 [in_i] [facility] ([facility]) Diastolic blood pressure 78 mm[Hg] 78 mm[Hg] [facility] ([facility]) Body height 72 [in_i] 72 [in_i] [facility] ([facility]) Body mass index (BMI) [Ratio] 26.6 kg/m2 26.6 k g/m2 [facility] [facility] Systolic blood pressure 117 mm[Hg] 117 mm[Hg] A [facility] ([facility]) Body weight 3136 [oz_av] 3136 [oz_av] ALEX ([facility]) Body mass index (BMI) [Ratio] 26.6 kg/m2 26.6 k g/m2 ALEX ([facility]) Body height 72 [in_i] 72 [in_i] ALEX ([facility]) Diastolic blood pressure 78 mm[Hg] 78 mm[Hg] ALEX ([facility]) Systolic blood pressure 117 mm[Hg] 117 mm[Hg] [facility] Body weight 3136 [oz_av] 3136 [oz_av] ALEX ([facility]) Systolic blood pressure 117 mm[Hg] 117 mm[Hg] [facility] Diastolic blood pressure 78 mm[Hg] 78 mm[Hg] ALEX ([facility]) Body height 72 [in_i] 72 [in_i] ALEX ([facility]) Body mass index (BMI) [Ratio] 26.6 kg/m2 26.6 k g/m2 ALEX ([facility]) Body weight 3136 [oz_av] 3136 [oz_av] ALEX ([facility]) Diastolic blood pressure 78 mm[Hg] 78 mm[Hg] ALEX ([facility]) Body height 72 [in_i] 72 [in_i] ALEX ([facility]) Body mass index (BMI) [Ratio] 26.6 kg/m2 26.6 k g/m2 ALEX ([facility]) Systolic blood pressure 117 mm[Hg] 117 mm[Hg] [facility] Body weight 3136 [oz_av] 3136 [oz_av] ALEX ([facility]) Body weight 3136 [oz_av] 3136 [oz_av] ALEX ([facility]) Diastolic blood pressure 78 mm[Hg] 78 mm[Hg] ALEX ([facility]) Body height 72 [in_i] 72 [in_i] ALEX ([facility]) Body mass index (BMI) [Ratio] 26.6 kg/m2 26.6 k g/m2 ALEX ([facility]) Systolic blood pressure 117 mm[Hg] 117 mm[Hg] [facility] Diastolic blood pressure 78 mm[Hg] 78 mm[Hg] ALEX ([facility]) Body height 72 [in_i] 72 [in_i] ALEX ([facility]) Body mass index (BMI) [Ratio] 26.6 kg/m2 26.6 k g/m2 ALEX ([facility]) Systolic blood pressure 117 mm[Hg] 117 mm[Hg] [facility] Body weight 3136 [oz_av] 3136 [oz_av] ALEX ([facility]) Diastolic blood pressure 78 mm[Hg] 78 mm[Hg] ALEX ([facility]) Body height 72 [in_i] 72 [in_i] ALEX ([facility]) Body mass index (BMI) [Ratio] 26.6 kg/m2 26.6 k g/m2 ALEX ([facility]) Systolic blood pressure 117 mm[Hg] 117 mm[Hg] A THENA ([facility]) Body weight 3136 [oz_av] 3136 [oz_av] ALEX ([facility]) Diastolic blood pressure 78 mm[Hg] 78 mm[Hg] ALEX ([facility]) Body height 72 [in_i] 72 [in_i] ALEX ([facility]) Body mass index (BMI) [Ratio] 26.6 kg/m2 26.6 k g/m2 ALEX ([facility]) Systolic blood pressure 117 mm[Hg] 117 mm[Hg] A THENA ([facility]) Body weight 3136 [oz_av] 3136 [oz_av] ALEX ([facility]) Diastolic blood pressure 78 mm[Hg] 78 mm[Hg] ALEX ([facility]) Body height 72 [in_i] 72 [in_i] ALEX ([facility]) Body mass index (BMI) [Ratio] 26.6 kg/m2 26.6 k g/m2 ALEX ([facility]) Systolic blood pressure 117 mm[Hg] 117 mm[Hg] A THENA ([facility]) Body weight 3136 [oz_av] 3136 [oz_av] ALEX ([facility]) Diastolic blood pressure 78 mm[Hg] 78 mm[Hg] ALEX ([facility]) Body height 72 [in_i] 72 [in_i] ALEX ([facility]) Body mass index (BMI) [Ratio] 26.6 kg/m2 26.6 k g/m2 ALEX ([facility]) Systolic blood pressure 117 mm[Hg] 117 mm[Hg] A THENA ([facility]) Body weight 3136 [oz_av] 3136 [oz_av] ALEX ([facility]) Diastolic blood pressure 78 mm[Hg] 78 mm[Hg] ALEX ([facility]) Body height 72 [in_i] 72 [in_i] ALEX ([facility]) Body mass index (BMI) [Ratio] 26.6 kg/m2 26.6 k g/m2 ALEX ([facility]) Systolic blood pressure 117 mm[Hg] 117 mm[Hg] A THENA ([facility]) Body weight 3136 [oz_av] 3136 [oz_av] ALEX ([facility]) Diastolic blood pressure 78 mm[Hg] 78 mm[Hg] ALEX ([facility]) Body height 72 [in_i] 72 [in_i] ALEX ([facility]) Body mass index (BMI) [Ratio] 26.6 kg/m2 26.6 k g/m2 ALEX ([facility]) Systolic blood pressure 117 mm[Hg] 117 mm[Hg] A THENA ([facility]) Body weight 3136 [oz_av] 3136 [oz_av] ALEX ([facility]) Diastolic blood pressure 78 mm[Hg] 78 mm[Hg] ALEX ([facility]) Body height 72 [in_i] 72 [in_i] ALEX ([facility]) Body mass index (BMI) [Ratio] 26.6 kg/m2 26.6 k g/m2 ALEX ([facility]) Systolic blood pressure 117 mm[Hg] 117 mm[Hg] A THENA ([facility]) Body weight 3136 [oz_av] 3136 [oz_av] ALEX ([facility]) Diastolic blood pressure 78 mm[Hg] 78 mm[Hg] ALEX ([facility]) Body height 72 [in_i] 72 [in_i] ALEX ([facility]) Body mass index (BMI) [Ratio] 26.6 kg/m2 26.6 k g/m2 ALEX ([facility]) Systolic blood pressure 117 mm[Hg] 117 mm[Hg] A THENA ([facility]) Body weight 3136 [oz_av] 3136 [oz_av] ALEX ([facility]) Diastolic blood pressure 78 mm[Hg] 78 mm[Hg] ALEX ([facility]) Body height 72 [in_i] 72 [in_i] ALEX ([facility]) Body mass index (BMI) [Ratio] 26.6 kg/m2 26.6 k g/m2 ALEX ([facility]) Systolic blood pressure 117 mm[Hg] 117 mm[Hg] A THENA ([facility]) Body weight 3136 [oz_av] 3136 [oz_av] ALEX ([facility]) Diastolic blood pressure 78 mm[Hg] 78 mm[Hg] ALEX ([facility]) Body height 72 [in_i] 72 [in_i] ALEX ([facility]) Body mass index (BMI) [Ratio] 26.6 kg/m2 26.6 k g/m2 ALEX ([facility]) Systolic blood pressure 117 mm[Hg] 117 mm[Hg] A THENA ([facility]) Body weight 3136 [oz_av] 3136 [oz_av] ALEX ([facility]) Diastolic blood pressure 78 mm[Hg] 78 mm[Hg] ALEX ([facility]) Body height 72 [in_i] 72 [in_i] ALEX ([facility]) Body mass index (BMI) [Ratio] 26.6 kg/m2 26.6 k g/m2 ALEX ([facility]) Systolic blood pressure 117 mm[Hg] 117 mm[Hg] A THENA ([facility]) Body weight 3136 [oz_av] 3136 [oz_av] ALEX ([facility]) Body weight 3216 [oz_av] 3216 [oz_av] ALEX ([facility]) Diastolic blood pressure 76 mm[Hg] 76 mm[Hg] ALEX ([facility]) Body height 72 [in_i] 72 [in_i] ALEX ([facility]) Body mass index (BMI) [Ratio] 27.3 kg/m2 27.3 k g/m2 ALEX ([facility]) Systolic blood pressure 126 mm[Hg] 126 mm[Hg] A THENA ([facility]) Diastolic blood pressure 76 mm[Hg] 76 mm[Hg] ALEX ([facility]) Body height 72 [in_i] 72 [in_i] ALEX ([facility]) Body mass index (BMI) [Ratio] 27.3 kg/m2 27.3 k g/m2 ALEX ([facility]) Systolic blood pressure 126 mm[Hg] 126 mm[Hg] A THENA ([facility]) Body weight 3216 [oz_av] 3216 [oz_av] ALEX ([facility]) Body height 72 [in_i] 72 [in_i] ALEX ([facility]) Body mass index (BMI) [Ratio] 27.3 kg/m2 27.3 k g/m2 ALEX ([facility]) Systolic blood pressure 126 mm[Hg] 126 mm[Hg] A THENA ([facility]) Diastolic blood pressure 76 mm[Hg] 76 mm[Hg] ALEX ([facility]) Body weight 3216 [oz_av] 3216 [oz_av] ALEX ([facility]) Body mass index (BMI) [Ratio] 27.3 kg/m2 27.3 k g/m2 ALEX ([facility]) Body height 72 [in_i] 72 [in_i] ALEX ([facility]) Body weight 3216 [oz_av] 3216 [oz_av] ALEX ([facility]) Systolic blood pressure 126 mm[Hg] 126 mm[Hg] A THENA ([facility]) Diastolic blood pressure 76 mm[Hg] 76 mm[Hg] ALEX ([facility]) Diastolic blood pressure 76 mm[Hg] 76 mm[Hg] ALEX ([facility]) Body height 72 [in_i] 72 [in_i] ALEX ([facility]) Body mass index (BMI) [Ratio] 27.3 kg/m2 27.3 k g/m2 ALEX ([facility]) Systolic blood pressure 126 mm[Hg] 126 mm[Hg] A THENA ([facility]) Body weight 3216 [oz_av] 3216 [oz_av] ALEX ([facility]) Diastolic blood pressure 76 mm[Hg] 76 mm[Hg] ALEX ([facility]) Body height 72 [in_i] 72 [in_i] ALEX ([facility]) Body mass index (BMI) [Ratio] 27.3 kg/m2 27.3 k g/m2 ALEX ([facility]) Systolic blood pressure 126 mm[Hg] 126 mm[Hg] [facility] Body weight 3216 [oz_av] 3216 [oz_av] ALEX ([facility]) Diastolic blood pressure 76 mm[Hg] 76 mm[Hg] ALEX ([facility]) Body height 72 [in_i] 72 [in_i] ALEX ([facility]) Body mass index (BMI) [Ratio] 27.3 kg/m2 27.3 k g/m2 ALEX ([facility]) Systolic blood pressure 126 mm[Hg] 126 mm[Hg] [facility] Body weight 3216 [oz_av] 3216 [oz_av] ALEX ([facility]) Diastolic blood pressure 76 mm[Hg] 76 mm[Hg] ALEX ([facility]) Body height 72 [in_i] 72 [in_i] ALEX ([facility]) Body mass index (BMI) [Ratio] 27.3 kg/m2 27.3 k g/m2 ALEX ([facility]) Systolic blood pressure 126 mm[Hg] 126 mm[Hg] A THENA ([facility]) Body weight 3216 [oz_av] 3216 [oz_av] ALEX ([facility]) Diastolic blood pressure 76 mm[Hg] 76 mm[Hg] ALEX ([facility]) Body height 72 [in_i] 72 [in_i] ALEX ([facility]) Body mass index (BMI) [Ratio] 27.3 kg/m2 27.3 k g/m2 ALEX ([facility]) Systolic blood pressure 126 mm[Hg] 126 mm[Hg] A THENA ([facility]) Body weight 3216 [oz_av] 3216 [oz_av] ALEX ([facility]) Systolic blood pressure 126 mm[Hg] 126 mm[Hg] [facility] Body weight 3216 [oz_av] 3216 [oz_av] ALEX ([facility]) Diastolic blood pressure 76 mm[Hg] 76 mm[Hg] ALEX ([facility]) Body height 72 [in_i] 72 [in_i] ALEX ([facility]) Body mass index (BMI) [Ratio] 27.3 kg/m2 27.3 k g/m2 ALEX ([facility]) Diastolic blood pressure 76 mm[Hg] 76 mm[Hg] ALEX ([facility]) Body height 72 [in_i] 72 [in_i] ALEX ([facility]) Body mass index (BMI) [Ratio] 27.3 kg/m2 27.3 k g/m2 ALEX ([facility]) Systolic blood pressure 126 mm[Hg] 126 mm[Hg] [facility] Body weight 3216 [oz_av] 3216 [oz_av] ALEX ([facility]) Body weight 3216 [oz_av] 3216 [oz_av] ALEX ([facility]) Systolic blood pressure 126 mm[Hg] 126 mm[Hg] [facility] Diastolic blood pressure 76 mm[Hg] 76 mm[Hg] ALEX ([facility]) Body height 72 [in_i] 72 [in_i] ALEX ([facility]) Body mass index (BMI) [Ratio] 27.3 kg/m2 27.3 k g/m2 ALEX ([facility]) Diastolic blood pressure 76 mm[Hg] 76 mm[Hg] ALEX ([facility]) Body height 72 [in_i] 72 [in_i] ALEX ([facility]) Body mass index (BMI) [Ratio] 27.3 kg/m2 27.3 k g/m2 ALEX ([facility]) Systolic blood pressure 126 mm[Hg] 126 mm[Hg] A THENA ([facility]) Body weight 3216 [oz_av] 3216 [oz_av] ALEX ([facility]) Diastolic blood pressure 76 mm[Hg] 76 mm[Hg] ALEX ([facility]) Body height 72 [in_i] 72 [in_i] ALEX ([facility]) Body mass index (BMI) [Ratio] 27.3 kg/m2 27.3 k g/m2 ALEX ([facility]) Systolic blood pressure 126 mm[Hg] 126 mm[Hg] A THENA ([facility]) Body weight 3216 [oz_av] 3216 [oz_av] AELX ([facility]) Diastolic blood pressure 76 mm[Hg] 76 mm[Hg] ALEX ([facility]) Body height 72 [in_i] 72 [in_i] ALEX ([facility]) Body mass index (BMI) [Ratio] 27.3 kg/m2 27.3 k g/m2 ALEX ([facility]) Systolic blood pressure 126 mm[Hg] 126 mm[Hg] [facility] Body weight 3216 [oz_av] 3216 [oz_av] ALEX ([facility]) Body height 72 [in_i] 72 [in_i] ALEX ([facility]) Body mass index (BMI) [Ratio] 27.3 kg/m2 27.3 k g/m2 ALEX ([facility]) Systolic blood pressure 126 mm[Hg] 126 mm[Hg] [facility] Body weight 3216 [oz_av] 3216 [oz_av] ALEX ([facility]) Diastolic blood pressure 76 mm[Hg] 76 mm[Hg] ALEX ([facility]) Diastolic blood pressure 76 mm[Hg] 76 mm[Hg] ALEX ([facility]) Body height 72 [in_i] 72 [in_i] ALEX ([facility]) Body mass index (BMI) [Ratio] 27.3 kg/m2 27.3 k g/m2 ALEX ([facility]) Systolic blood pressure 126 mm[Hg] 126 mm[Hg] A THENA ([facility]) Body weight 3216 [oz_av] 3216 [oz_av] ALEX ([facility]) Diastolic blood pressure 76 mm[Hg] 76 mm[Hg] ALEX ([facility]) Body height 72 [in_i] 72 [in_i] ALEX ([facility]) Body mass index (BMI) [Ratio] 27.3 kg/m2 27.3 k g/m2 ALEX ([facility]) Systolic blood pressure 126 mm[Hg] 126 mm[Hg] [facility] Body weight 3216 [oz_av] 3216 [oz_av] ALEX ([facility]) Diastolic blood pressure 86 mm[Hg] 86 mm[Hg] ALEX ([facility]) Diastolic blood pressure 86 mm[Hg] 86 mm[Hg] ALEX ([facility]) Body height 72 [in_i] 72 [in_i] ALEX ([facility]) Body mass index (BMI) [Ratio] 27.9 kg/m2 27.9 k g/m2 ALEX ([facility]) Systolic blood pressure 129 mm[Hg] 129 mm[Hg] [facility] Body height 72 [in_i] 72 [in_i] ALEX ([facility]) Body mass index (BMI) [Ratio] 27.9 kg/m2 27.9 k g/m2 ALEX ([facility]) Systolic blood pressure 129 mm[Hg] 129 mm[Hg] A THENA ([facility]) Body weight 3296 [oz_av] 3296 [oz_av] ALEX ([facility]) Body weight 3296 [oz_av] 3296 [oz_av] ALEX ([facility]) Body height 72 [in_i] 72 [in_i] ALEX ([facility]) Body mass index (BMI) [Ratio] 27.9 kg/m2 27.9 k g/m2 ALEX ([facility]) Systolic blood pressure 129 mm[Hg] 129 mm[Hg] A THENA ([facility]) Body weight 3296 [oz_av] 3296 [oz_av] ALEX ([facility]) Diastolic blood pressure 86 mm[Hg] 86 mm[Hg] ALEX ([facility]) Diastolic blood pressure 86 mm[Hg] 86 mm[Hg] ALEX ([facility]) Body height 72 [in_i] 72 [in_i] ALEX ([facility]) Body mass index (BMI) [Ratio] 27.9 kg/m2 27.9 k g/m2 ALEX ([facility]) Systolic blood pressure 129 mm[Hg] 129 mm[Hg] A THENA ([facility]) Body weight 3296 [oz_av] 3296 [oz_av] ALEX ([facility]) Diastolic blood pressure 86 mm[Hg] 86 mm[Hg] ALEX ([facility]) Body height 72 [in_i] 72 [in_i] ALEX ([facility]) Body mass index (BMI) [Ratio] 27.9 kg/m2 27.9 k g/m2 ALEX ([facility]) Body weight 3296 [oz_av] 3296 [oz_av] ALEX ([facility]) Systolic blood pressure 129 mm[Hg] 129 mm[Hg] [facility] Diastolic blood pressure 86 mm[Hg] 86 mm[Hg] ALEX ([facility]) Body height 72 [in_i] 72 [in_i] ALEX ([facility]) Body mass index (BMI) [Ratio] 27.9 kg/m2 27.9 k g/m2 ALEX ([facility]) Systolic blood pressure 129 mm[Hg] 129 mm[Hg] A THENA ([facility]) Body weight 3296 [oz_av] 3296 [oz_av] ALEX ([facility]) Diastolic blood pressure 86 mm[Hg] 86 mm[Hg] ALEX ([facility]) Body height 72 [in_i] 72 [in_i] ALEX ([facility]) Body mass index (BMI) [Ratio] 27.9 kg/m2 27.9 k g/m2 ALEX ([facility]) Systolic blood pressure 129 mm[Hg] 129 mm[Hg] A THENA ([facility]) Diastolic blood pressure 86 mm[Hg] 86 mm[Hg] ALEX ([facility]) Body height 72 [in_i] 72 [in_i] ALEX ([facility]) Body mass index (BMI) [Ratio] 27.9 kg/m2 27.9 k g/m2 ALEX ([facility]) Systolic blood pressure 129 mm[Hg] 129 mm[Hg] A THENA ([facility]) Body weight 3296 [oz_av] 3296 [oz_av] ALEX ([facility]) Body weight 3296 [oz_av] 3296 [oz_av] ALEX ([facility]) Diastolic blood pressure 86 mm[Hg] 86 mm[Hg] ALEX ([facility]) Body height 72 [in_i] 72 [in_i] ALEX ([facility]) Body mass index (BMI) [Ratio] 27.9 kg/m2 27.9 k g/m2 ALEX ([facility]) Systolic blood pressure 129 mm[Hg] 129 mm[Hg] A THENA ([facility]) Body weight 3296 [oz_av] 3296 [oz_av] ALEX ([facility]) Diastolic blood pressure 86 mm[Hg] 86 mm[Hg] ALEX ([facility]) Body height 72 [in_i] 72 [in_i] ALEX ([facility]) Body mass index (BMI) [Ratio] 27.9 kg/m2 27.9 k g/m2 ALEX ([facility]) Systolic blood pressure 129 mm[Hg] 129 mm[Hg] A THENA ([facility]) Body weight 3296 [oz_av] 3296 [oz_av] ALEX ([facility]) Diastolic blood pressure 86 mm[Hg] 86 mm[Hg] ALEX ([facility]) Body height 72 [in_i] 72 [in_i] ALEX ([facility]) Body mass index (BMI) [Ratio] 27.9 kg/m2 27.9 k g/m2 ALEX ([facility]) Systolic blood pressure 129 mm[Hg] 129 mm[Hg] A THENA ([facility]) Body weight 3296 [oz_av] 3296 [oz_av] ALEX ([facility]) Diastolic blood pressure 86 mm[Hg] 86 mm[Hg] ALEX ([facility]) Body height 72 [in_i] 72 [in_i] ALEX ([facility]) Body mass index (BMI) [Ratio] 27.9 kg/m2 27.9 k g/m2 ALEX ([facility]) Systolic blood pressure 129 mm[Hg] 129 mm[Hg] [facility] Body weight 3296 [oz_av] 3296 [oz_av] ALEX ([facility]) Diastolic blood pressure 86 mm[Hg] 86 mm[Hg] ALEX ([facility]) Body height 72 [in_i] 72 [in_i] ALEX ([facility]) Body mass index (BMI) [Ratio] 27.9 kg/m2 27.9 k g/m2 ALEX ([facility]) Systolic blood pressure 129 mm[Hg] 129 mm[Hg] [facility] Body weight 3296 [oz_av] 3296 [oz_av] ALEX ([facility]) Diastolic blood pressure 86 mm[Hg] 86 mm[Hg] ALEX ([facility]) Body height 72 [in_i] 72 [in_i] ALEX ([facility]) Body mass index (BMI) [Ratio] 27.9 kg/m2 27.9 k g/m2 ALEX ([facility]) Systolic blood pressure 129 mm[Hg] 129 mm[Hg] A THENA ([facility]) Body weight 3296 [oz_av] 3296 [oz_av] ALEX ([facility]) Body height 72 [in_i] 72 [in_i] ALEX ([facility]) Body mass index (BMI) [Ratio] 27.9 kg/m2 27.9 k g/m2 ALEX ([facility]) Systolic blood pressure 129 mm[Hg] 129 mm[Hg] A THENA ([facility]) Body weight 3296 [oz_av] 3296 [oz_av] ALEX ([facility]) Diastolic blood pressure 86 mm[Hg] 86 mm[Hg] ALEX ([facility]) Diastolic blood pressure 86 mm[Hg] 86 mm[Hg] ALEX ([facility]) Body height 72 [in_i] 72 [in_i] ALEX ([facility]) Body mass index (BMI) [Ratio] 27.9 kg/m2 27.9 k g/m2 ALEX ([facility]) Systolic blood pressure 129 mm[Hg] 129 mm[Hg] A THENA ([facility]) Body weight 3296 [oz_av] 3296 [oz_av] ALEX ([facility]) Diastolic blood pressure 86 mm[Hg] 86 mm[Hg] ALEX ([facility]) Body height 72 [in_i] 72 [in_i] ALEX ([facility]) Body mass index (BMI) [Ratio] 27.9 kg/m2 27.9 k g/m2 ALEX ([facility]) Systolic blood pressure 129 mm[Hg] 129 mm[Hg] A THENA ([facility]) Body weight 3296 [oz_av] 3296 [oz_av] ALEX ([facility]) Diastolic blood pressure 86 mm[Hg] 86 mm[Hg] ALEX ([facility]) Body height 72 [in_i] 72 [in_i] ALEX ([facility]) Body mass index (BMI) [Ratio] 27.9 kg/m2 27.9 k g/m2 ALEX ([facility]) Systolic blood pressure 129 mm[Hg] 129 mm[Hg] A THENA ([facility]) Body weight 3296 [oz_av] 3296 [oz_av] ALEX ([facility]) Diastolic blood pressure 86 mm[Hg] 86 mm[Hg] ALEX ([facility]) Body height 72 [in_i] 72 [in_i] ALEX ([facility]) Body mass index (BMI) [Ratio] 27.9 kg/m2 27.9 k g/m2 ALEX ([facility]) Systolic blood pressure 129 mm[Hg] 129 mm[Hg] A THENA ([facility]) Body weight 3296 [oz_av] 3296 [oz_av] ALEX ([facility]) Diastolic blood pressure 71 mm[Hg] 71 mm[Hg] ALEX ([facility]) Body height 72 [in_i] 72 [in_i] ALEX ([facility]) Body mass index (BMI) [Ratio] 29.01 kg/m2 29.01 kg/m2 ALEX ([facility]) Systolic blood pressure 109 mm[Hg] 109 mm[Hg] [facility] Body weight 3410.08 [oz_av] 3410.08 [oz_av] [facility] ([facility]) Diastolic blood pressure 71 mm[Hg] 71 mm[Hg] ALEX ([facility]) Systolic blood pressure 109 mm[Hg] 109 mm[Hg] A THENA ([facility]) Body weight 3410.08 [oz_av] 3410.08 [oz_av] [facility] [place] ([facility]) Body height 72 [in_i] 72 [in_i] ALEX ([facility]) Body mass index (BMI) [Ratio] 29.01 kg/m2 29.01 kg/m2 ALEX ([facility]) Systolic blood pressure 109 mm[Hg] 109 mm[Hg] A [facility] ([facility]) Body weight 3410.08 [oz_av] 3410.08 [oz_av] [facility] [place] ([facility]) Diastolic blood pressure 71 mm[Hg] 71 mm[Hg] ALEX ([facility]) Body height 72 [in_i] 72 [in_i] ALEX ([facility]) Body mass index (BMI) [Ratio] 29.01 kg/m2 29.01 kg/m2 ALEX ([facility]) Diastolic blood pressure 71 mm[Hg] 71 mm[Hg] ALEX ([facility]) Body height 72 [in_i] 72 [in_i] ALEX ([facility]) Body mass index (BMI) [Ratio] 29.01 kg/m2 29.01 kg/m2 ALEX ([facility]) Systolic blood pressure 109 mm[Hg] 109 mm[Hg] A THENA ([facility]) Body weight 3410.08 [oz_av] 3410.08 [oz_av] [facility] [place] ([facility]) Diastolic blood pressure 71 mm[Hg] 71 mm[Hg] ALEX ([facility]) Body height 72 [in_i] 72 [in_i] ALEX ([facility]) Body mass index (BMI) [Ratio] 29.01 kg/m2 29.01 kg/m2 ALEX ([facility]) Systolic blood pressure 109 mm[Hg] 109 mm[Hg] A THENA ([facility]) Body weight 3410.08 [oz_av] 3410.08 [oz_av] [facility] ([facility]) Body weight 3410.08 [oz_av] 3410.08 [oz_av] [facility] [place] ([facility]) Diastolic blood pressure 71 mm[Hg] 71 mm[Hg] ALEX ([facility]) Body height 72 [in_i] 72 [in_i] ALEX ([facility]) Body mass index (BMI) [Ratio] 29.01 kg/m2 29.01 kg/m2 ALEX ([facility]) Systolic blood pressure 109 mm[Hg] 109 mm[Hg] [facility] Body weight 3410.08 [oz_av] 3410.08 [oz_av] [facility] ([facility]) Diastolic blood pressure 71 mm[Hg] 71 mm[Hg] ALEX ([facility]) Body height 72 [in_i] 72 [in_i] ALEX ([facility]) Body mass index (BMI) [Ratio] 29.01 kg/m2 29.01 kg/m2 ALEX ([facility]) Systolic blood pressure 109 mm[Hg] 109 mm[Hg] [facility] Diastolic blood pressure 71 mm[Hg] 71 mm[Hg] ALEX ([facility]) Body height 72 [in_i] 72 [in_i] ALEX ([facility]) Body mass index (BMI) [Ratio] 29.01 kg/m2 29.01 kg/m2 ALEX ([facility]) Systolic blood pressure 109 mm[Hg] 109 mm[Hg] [facility] Body weight 3410.08 [oz_av] 3410.08 [oz_av] ATH ADELE ([facility]) Diastolic blood pressure 71 mm[Hg] 71 mm[Hg] ALEX ([facility]) Body height 72 [in_i] 72 [in_i] ALEX ([facility]) Body mass index (BMI) [Ratio] 29.01 kg/m2 29.01 kg/m2 ALEX ([facility]) Systolic blood pressure 109 mm[Hg] 109 mm[facility]Hg[facility] Body weight 3410.08 [oz_av] 3410.08 [oz_av] ATH ADELE ([facility]) Diastolic blood pressure 71 mm[Hg] 71 mm[Hg] ALEX ([facility]) Body height 72 [in_i] 72 [in_i] ALEX ([facility]) Body mass index (BMI) [Ratio] 29.01 kg/m2 29.01 kg/m2 ALEX ([facility]) Systolic blood pressure 109 mm[Hg] 109 mm[Hg[facility] Body weight 3410.08 [oz_av] 3410.08 [oz_av] ATH ADELE ([facility]) Diastolic blood pressure 71 mm[Hg] 71 mm[Hg] ALEX ([facility]) Body height 72 [in_i] 72 [in_i] ALEX ([facility]) Body mass index (BMI) [Ratio] 29.01 kg/m2 29.01 kg/m2 ALEX ([facility]) Systolic blood pressure 109 mm[Hg] 109 mm[Hg] A THENA ([facility]) Body weight 3410.08 [oz_av] 3410.08 [oz_av] ATH ADELE ([facility]) Diastolic blood pressure 71 mm[Hg] 71 mm[Hg] ALEX ([facility]) Body height 72 [in_i] 72 [in_i] ALEX ([facility]) Body mass index (BMI) [Ratio] 29.01 kg/m2 29.01 kg/m2 ALEX ([facility]) Systolic blood pressure 109 mm[Hg] 109 mm[Hg] A THENA ([facility]) Body weight 3410.08 [oz_av] 3410.08 [oz_av] ATH ADELE ([facility]) Body weight 3410.08 [oz_av] 3410.08 [oz_av] ATH ADELE ([facility]) Diastolic blood pressure 71 mm[Hg] 71 mm[Hg] ALEX ([facility]) Body height 72 [in_i] 72 [in_i] ALEX ([facility]) Body mass index (BMI) [Ratio] 29.01 kg/m2 29.01 kg/m2 ALEX ([facility]) Systolic blood pressure 109 mm[Hg] 109 mm[Hg] A THENA ([facility]) Systolic blood pressure 109 mm[Hg] 109 mm[Hg] [facility] Body weight 3410.08 [oz_av] 3410.08 [oz_av] ATH ADELE ([facility]) Diastolic blood pressure 71 mm[Hg] 71 mm[Hg] ALEX ([facility]) Body height 72 [in_i] 72 [in_i] ALEX ([facility]) Body mass index (BMI) [Ratio] 29.01 kg/m2 29.01 kg/m2 ALEX ([facility]) Body weight 3410.08 [oz_av] 3410.08 [oz_av] ATH ADELE ([facility]) Diastolic blood pressure 71 mm[Hg] 71 mm[Hg] ALEX ([facility]) Body height 72 [in_i] 72 [in_i] ALEX ([facility]) Body mass index (BMI) [Ratio] 29.01 kg/m2 29.01 kg/m2 ALEX ([facility]) Systolic blood pressure 109 mm[Hg] 109 mm[Hg] [facility] Diastolic blood pressure 71 mm[Hg] 71 mm[Hg] ALEX ([facility]) Body height 72 [in_i] 72 [in_i] ALEX ([facility]) Body mass index (BMI) [Ratio] 29.01 kg/m2 29.01 kg/m2 ALEX ([facility]) Systolic blood pressure 109 mm[Hg] 109 mm[Hg] [facility] Body weight 3410.08 [oz_av] 3410.08 [oz_av] ATH ADELE ([facility]) Diastolic blood pressure 71 mm[Hg] 71 mm[Hg] ALEX ([facility]) Body height 72 [in_i] 72 [in_i] ALEX ([facility]) Body mass index (BMI) [Ratio] 29.01 kg/m2 29.01 kg/m2 ALEX ([facility]) Systolic blood pressure 109 mm[Hg] 109 mm[Hg] A MARIELENA ([facility]) Body weight 3410.08 [oz_av] 3410.08 [oz_av] ATH ADELE ([facility]) Diastolic blood pressure 71 mm[Hg] 71 mm[Hg] ALEX ([facility]) Body height 72 [in_i] 72 [in_i] ALEX ([facility]) Body mass index (BMI) [Ratio] 29.01 kg/m2 29.01 kg/m2 ALEX ([facility]) Systolic blood pressure 109 mm[Hg] 109 mm[Hg] A MARIELENA ([facility]) Body weight 3410.08 [oz_av] 3410.08 [oz_av] ATH ADELE ([facility]) Patient Treatment Plan of Care Planned Activity Planned Date Details Description Data Source (s) 60 ACTUAT Fluticasone propionate 0.25 MG /ACTUAT / salmeterol 0.05 MG/ACTUAT Dry Powder Inhaler 11/25/2020 12:00:00 AM EDT ATH A ([facility]) 60 ACTUAT Fluticasone propionate 0.25 MG /ACTUAT / salmeterol 0.05 MG/ACTUAT Dry Powder Inhaler 11/25/2020 12:00:00 AM EDT ATH A ([facility]) 60 ACTUAT Fluticasone propionate 0.25 MG /ACTUAT / salmeterol 0.05 MG/ACTUAT Dry Powder Inhaler 11/25/2020 12:00:00 AM EDT ATH A ([facility]) 60 ACTUAT Fluticasone propionate 0.25 MG /ACTUAT / salmeterol 0.05 MG/ACTUAT Dry Powder Inhaler 11/25/2020 12:00:00 AM EDT ATH A ([facility]) 60 ACTUAT Fluticasone propionate 0.25 MG /ACTUAT / salmeterol 0.05 MG/ACTUAT Dry Powder Inhaler 11/25/2020 12:00:00 AM EDT ATHEN A ([facility]) 60 ACTUAT Fluticasone propionate 0.25 MG /ACTUAT / salmeterol 0.05 MG/ACTUAT Dry Powder Inhaler 11/25/2020 12:00:00 AM EDT ATHEN A ([facility]) 60 ACTUAT Fluticasone propionate 0.25 MG /ACTUAT / salmeterol 0.05 MG/ACTUAT Dry Powder Inhaler 11/25/2020 12:00:00 AM EDT ATHEN A ([facility]) 60 ACTUAT Fluticasone propionate 0.25 MG /ACTUAT / salmeterol 0.05 MG/ACTUAT Dry Powder Inhaler 11/25/2020 12:00:00 AM EDT ATHEN A ([facility]) 60 ACTUAT Fluticasone propionate 0.25 MG /ACTUAT / salmeterol 0.05 MG/ACTUAT Dry Powder Inhaler 11/25/2020 12:00:00 AM EDT ATHEN A ([facility]) 60 ACTUAT Fluticasone propionate 0.25 MG /ACTUAT / salmeterol 0.05 MG/ACTUAT Dry Powder Inhaler 11/25/2020 12:00:00 AM EDT ATHEN A ([facility]) 60 ACTUAT Fluticasone propionate 0.25 MG /ACTUAT / salmeterol 0.05 MG/ACTUAT Dry Powder Inhaler 11/25/2020 12:00:00 AM EDT ATHEN A ([facility]) 60 ACTUAT Fluticasone propionate 0.25 MG /ACTUAT / salmeterol 0.05 MG/ACTUAT Dry Powder Inhaler 11/25/2020 12:00:00 AM EDT ATHEN A ([facility]) 60 ACTUAT Fluticasone propionate 0.25 MG /ACTUAT / salmeterol 0.05 MG/ACTUAT Dry Powder Inhaler 11/25/2020 12:00:00 AM EDT ATHEN A ([facility]) 60 ACTUAT Fluticasone propionate 0.25 MG /ACTUAT / salmeterol 0.05 MG/ACTUAT Dry Powder Inhaler 11/25/2020 12:00:00 AM EDT ATHEN A ([facility]) 60 ACTUAT Fluticasone propionate 0.25 MG /ACTUAT / salmeterol 0.05 MG/ACTUAT Dry Powder Inhaler 11/25/2020 12:00:00 AM EDT ATHEN A ([facility]) 60 ACTUAT Fluticasone propionate 0.25 MG /ACTUAT / salmeterol 0.05 MG/ACTUAT Dry Powder Inhaler 11/25/2020 12:00:00 AM EDT ATHEN A ([facility]) 60 ACTUAT Fluticasone propionate 0.25 MG /ACTUAT / salmeterol 0.05 MG/ACTUAT Dry Powder Inhaler 11/25/2020 12:00:00 AM EDT ATHEN A ([facility]) Ibuprofen 600 MG Oral Tablet ALEX ([facility]) gabapentin 300 MG Oral Capsule ALEX ([facility]) Fluzone Quad 60 mcg (15 mcg x 4)/0.5 mL intramuscular susp. INJECT DIRECTED ALEX ([facility]) Escitalopram 20 MG Oral Tablet ALEX ([facility]) Escitalopram 10 MG Oral Tablet ALEX ([facility]) Amoxicillin 875 MG / Clavulanate 125 MG Oral Tablet ALEX ([facility]) Acetaminophen 325 MG Oral Tablet ALEX ([facility]) Tobramycin 3 MG/ML Ophthalmic Solution ALEX ([facility]) tizanidine 2 MG Oral Tablet ALEX ([facility]) terbinafine 250 MG Oral Tablet ALEX ([facility]) Sulfamethoxazole 800 MG / Trimethoprim 160 MG Oral Tablet ALEX ([facility]) sildenafil 100 MG Oral Tablet ALEX ([facility]) Omeprazole 20 MG Delayed Release Oral Capsule ALEX ([facility]) Naproxen 500 MG Oral Tablet ALEX ([facility]) methylprednisolone 4 mg tablets in a dos e pack TAKE DOSE BRIJESH DIRECTED ON SHEET ALEX ([facility]) meloxicam 7.5 MG Oral Tablet ALEX ([facility]) Ibuprofen 600 MG Oral Tablet ALEX ([facility]) gabapentin 300 MG Oral Capsule ALEX ([facility]) Fluzone Quad 60 mcg (15 mcg x 4)/0.5 mL intramuscular susp. INJECT DIRECTED ALEX ([facility]) Escitalopram 20 MG Oral Tablet ALEX ([facility]) Escitalopram 10 MG Oral Tablet ALEX ([facility]) Amoxicillin 875 MG / Clavulanate 125 MG Oral Tablet ALEX ([facility]) Acetaminophen 325 MG Oral Tablet ALEX ([facility]) Tobramycin 3 MG/ML Ophthalmic Solution ALEX ([facility]) tizanidine 2 MG Oral Tablet ALEX ([facility]) terbinafine 250 MG Oral Tablet ALEX ([facility]) Sulfamethoxazole 800 MG / Trimethoprim 160 MG Oral Tablet ALEX ([facility]) sildenafil 100 MG Oral Tablet ALEX ([facility]) Omeprazole 20 MG Delayed Release Oral Capsule ALEX ([facility]) Naproxen 500 MG Oral Tablet ALEX ([facility]) methylprednisolone 4 mg tablets in a dos e pack TAKE DOSE BRIJESH DIRECTED ON SHEET ALEX ([facility]) meloxicam 7.5 MG Oral Tablet ALEX ([facility]) Ibuprofen 600 MG Oral Tablet ALEX ([facility]) gabapentin 300 MG Oral Capsule ALEX ([facility]) Fluzone Quad 60 mcg (15 mcg x 4)/0.5 mL intramuscular susp. INJECT DIRECTED ALEX ([facility]) Escitalopram 20 MG Oral Tablet ALEX ([facility]) Escitalopram 10 MG Oral Tablet ALEX ([facility]) Amoxicillin 875 MG / Clavulanate 125 MG Oral Tablet ALEX ([facility]) Acetaminophen 325 MG Oral Tablet ALEX ([facility]) Tobramycin 3 MG/ML Ophthalmic Solution ALEX ([facility]) tizanidine 2 MG Oral Tablet ALEX ([facility]) terbinafine 250 MG Oral Tablet ALEX ([facility]) Sulfamethoxazole 800 MG / Trimethoprim 160 MG Oral Tablet ALEX ([facility]) sildenafil 100 MG Oral Tablet ALEX ([facility]) Omeprazole 20 MG Delayed Release Oral Capsule ALEX ([facility]) Naproxen 500 MG Oral Tablet ALEX ([facility]) methylprednisolone 4 mg tablets in a dos e pack TAKE DOSE BRIJESH DIRECTED ON SHEET ALEX ([facility]) meloxicam 7.5 MG Oral Tablet ALEX ([facility]) Ibuprofen 600 MG Oral Tablet ALEX ([facility]) gabapentin 300 MG Oral Capsule ALEX ([facility]) Fluzone Quad 60 mcg (15 mcg x 4)/0.5 mL intramuscular susp. INJECT DIRECTED ALEX ([facility]) Escitalopram 20 MG Oral Tablet ALEX ([facility]) Escitalopram 10 MG Oral Tablet ALEX ([facility]) Amoxicillin 875 MG / Clavulanate 125 MG Oral Tablet ALEX ([facility]) Acetaminophen 325 MG Oral Tablet ALEX ([facility]) Tobramycin 3 MG/ML Ophthalmic Solution ALEX ([facility]) tizanidine 2 MG Oral Tablet ALEX ([facility]) terbinafine 250 MG Oral Tablet ALEX ([facility]) Sulfamethoxazole 800 MG / Trimethoprim 160 MG Oral Tablet ALEX ([facility]) sildenafil 100 MG Oral Tablet ALEX ([facility]) Omeprazole 20 MG Delayed Release Oral Capsule ALEX ([facility]) Naproxen 500 MG Oral Tablet ALEX ([facility]) meloxicam 7.5 MG Oral Tablet ALEX ([facility]) Ibuprofen 600 MG Oral Tablet ALEX ([facility]) gabapentin 300 MG Oral Capsule ALEX ([facility]) Fluzone Quad 60 mcg (15 mcg x 4)/0.5 mL intramuscular susp. INJECT DIRECTED ALEX ([facility]) Escitalopram 20 MG Oral Tablet ALEX ([facility]) Escitalopram 10 MG Oral Tablet ALEX ([facility]) Amoxicillin 875 MG / Clavulanate 125 MG Oral Tablet ALEX ([facility]) Acetaminophen 325 MG Oral Tablet ALEX ([facility]) Tobramycin 3 MG/ML Ophthalmic Solution ALEX ([facility]) tizanidine 2 MG Oral Tablet ALEX ([facility]) terbinafine 250 MG Oral Tablet ALEX ([facility]) Sulfamethoxazole 800 MG / Trimethoprim 160 MG Oral Tablet ALEX ([facility]) sildenafil 100 MG Oral Tablet ALEX ([facility]) Omeprazole 20 MG Delayed Release Oral Capsule ALEX ([facility]) Naproxen 500 MG Oral Tablet ALEX ([facility]) methylprednisolone 4 mg tablets in a dos e pack TAKE DOSE BRIJESH DIRECTED ON SHEET ALEX ([facility]) meloxicam 7.5 MG Oral Tablet ALEX ([facility]) Ibuprofen 600 MG Oral Tablet ALEX ([facility]) gabapentin 300 MG Oral Capsule ALEX ([facility]) Fluzone Quad 60 mcg (15 mcg x 4)/0.5 mL intramuscular susp. INJECT DIRECTED [place] ([facility]) Escitalopram 20 MG Oral Tablet ALEX ([facility]) Escitalopram 10 MG Oral Tablet ALEX ([facility]) Amoxicillin 875 MG / Clavulanate 125 MG Oral Tablet ALEX ([facility]) Acetaminophen 325 MG Oral Tablet ALEX ([facility]) Tobramycin 3 MG/ML Ophthalmic Solution ALEX ([facility]) tizanidine 2 MG Oral Tablet ALEX ([facility]) Tobramycin 3 MG/ML Ophthalmic Solution ALEX ([facility]) tizanidine 2 MG Oral Tablet ALEX ([facility]) terbinafine 250 MG Oral Tablet ALEX ([facility]) Sulfamethoxazole 800 MG / Trimethoprim 160 MG Oral Tablet ALEX ([facility]) sildenafil 100 MG Oral Tablet ALEX ([facility]) Omeprazole 20 MG Delayed Release Oral Capsule ALEX ([facility]) Naproxen 500 MG Oral Tablet ALEX ([facility]) methylprednisolone 4 mg tablets in a dos e pack TAKE DOSE BRIJESH DIRECTED ON SHEET ALEX ([facility]) meloxicam 7.5 MG Oral Tablet ALEX ([facility]) Ibuprofen 600 MG Oral Tablet ALEX ([facility]) gabapentin 300 MG Oral Capsule ALEX ([facility]) Fluzone Quad 60 mcg (15 mcg x 4)/0.5 mL intramuscular susp. INJECT DIRECTED ALEX ([facility]) Escitalopram 20 MG Oral Tablet ALEX ([facility]) Escitalopram 10 MG Oral Tablet ALEX ([facility]) Amoxicillin 875 MG / Clavulanate 125 MG Oral Tablet ALEX ([facility]) Acetaminophen 325 MG Oral Tablet ALEX ([facility]) Tobramycin 3 MG/ML Ophthalmic Solution ALEX ([facility]) tizanidine 2 MG Oral Tablet ALEX ([facility]) terbinafine 250 MG Oral Tablet ALEX ([facility]) Sulfamethoxazole 800 MG / Trimethoprim 160 MG Oral Tablet ALEX ([facility]) sildenafil 100 MG Oral Tablet ALEX ([facility]) Omeprazole 20 MG Delayed Release Oral Capsule ALEX ([facility]) Naproxen 500 MG Oral Tablet ALEX ([facility]) methylprednisolone 4 mg tablets in a dos e pack TAKE DOSE BRIJESH DIRECTED ON SHEET ALEX ([facility]) meloxicam 7.5 MG Oral Tablet ALEX ([facility]) Prednisone 20 MG Oral Tablet ALEX ([facility]) Omeprazole 20 MG Delayed Release Oral Capsule ALEX ([facility]) Naproxen 500 MG Oral Tablet ALEX ([facility]) methylprednisolone 4 mg tablets in a dos e pack TAKE DOSE BRIJESH DIRECTED ON SHEET ALEX ([facility]) meloxicam 7.5 MG Oral Tablet ALEX ([facility]) Ibuprofen 600 MG Oral Tablet ALEX ([facility]) gabapentin 300 MG Oral Capsule ALEX ([facility]) Furosemide 20 MG Oral Tablet ALEX ([facility]) Fluzone Quad 60 mcg (15 mcg x 4)/0.5 mL intramuscular susp. INJECT DIRECTED ALEX ([facility]) Escitalopram 20 MG Oral Tablet ALEX ([facility]) Escitalopram 10 MG Oral Tablet ALEX ([facility]) doxycycline hyclate 100 MG Oral Tablet ALEX ([facility]) Amoxicillin 875 MG / Clavulanate 125 MG Oral Tablet ALEX ([facility]) Acetaminophen 325 MG Oral Tablet ALEX ([facility]) Tobramycin 3 MG/ML Ophthalmic Solution ALEX ([facility]) tizanidine 2 MG Oral Tablet ALEX ([facility]) Prednisone 20 MG Oral Tablet ALEX ([facility]) Omeprazole 20 MG Delayed Release Oral Capsule ALEX ([facility]) Naproxen 500 MG Oral Tablet ALEX ([facility]) methylprednisolone 4 mg tablets in a dos e pack TAKE DOSE BRIJESH DIRECTED ON SHEET ALEX ([facility]) meloxicam 7.5 MG Oral Tablet ALEX ([facility]) Ibuprofen 600 MG Oral Tablet ALEX ([facility]) gabapentin 300 MG Oral Capsule ALEX ([facility]) Furosemide 20 MG Oral Tablet ALEX ([facility]) Fluzone Quad 60 mcg (15 mcg x 4)/0.5 mL intramuscular susp. INJECT DIRECTED ALEX ([facility]) Escitalopram 20 MG Oral Tablet ALEX ([facility]) Escitalopram 10 MG Oral Tablet ALEX ([facility]) doxycycline hyclate 100 MG Oral Tablet ALEX ([facility]) Amoxicillin 875 MG / Clavulanate 125 MG Oral Tablet ALEX ([facility]) Acetaminophen 325 MG Oral Tablet ALEX ([facility]) Tobramycin 3 MG/ML Ophthalmic Solution ALEX ([facility]) tizanidine 2 MG Oral Tablet ALEX ([facility]) Prednisone 20 MG Oral Tablet ALEX ([facility]) Naproxen 500 MG Oral Tablet ALEX ([facility]) methylprednisolone 4 mg tablets in a dos e pack TAKE DOSE BRIJESH DIRECTED ON SHEET ALEX ([facility]) meloxicam 7.5 MG Oral Tablet ALEX ([facility]) gabapentin 300 MG Oral Capsule ALEX ([facility]) Furosemide 20 MG Oral Tablet ALEX ([facility]) Fluzone Quad 60 mcg (15 mcg x 4)/0.5 mL intramuscular susp. INJECT DIRECTED ALEX ([facility]) Escitalopram 10 MG Oral Tablet ALEX ([facility]) Tobramycin 3 MG/ML Ophthalmic Solution ALEX ([facility]) tizanidine 2 MG Oral Tablet ALEX ([facility]) Prednisone 20 MG Oral Tablet ALEX ([facility]) Naproxen 500 MG Oral Tablet ALEX ([facility]) methylprednisolone 4 mg tablets in a dos e pack TAKE DOSE BRIJESH DIRECTED ON SHEET ALEX ([facility]) meloxicam 7.5 MG Oral Tablet ALEX ([facility]) gabapentin 300 MG Oral Capsule ALEX ([facility]) Furosemide 20 MG Oral Tablet ALEX ([facility]) Fluzone Quad 60 mcg (15 mcg x 4)/0.5 mL intramuscular susp. INJECT DIRECTED ALEX ([facility]) Escitalopram 10 MG Oral Tablet ALEX ([facility]) doxycycline hyclate 100 MG Oral Tablet ALEX ([facility]) Amoxicillin 875 MG / Clavulanate 125 MG Oral Tablet ALEX ([facility]) Acetaminophen 325 MG Oral Tablet ALEX ([facility]) Tobramycin 3 MG/ML Ophthalmic Solution ALEX ([facility]) tizanidine 2 MG Oral Tablet ALEX ([facility]) Prednisone 20 MG Oral Tablet ALEX ([facility]) Naproxen 500 MG Oral Tablet ALEX ([facility]) methylprednisolone 4 mg tablets in a dos e pack TAKE DOSE BRIJESH DIRECTED ON SHEET ALEX ([facility]) meloxicam 7.5 MG Oral Tablet ALEX ([facility]) gabapentin 300 MG Oral Capsule ALEX ([facility]) Furosemide 20 MG Oral Tablet ALEX ([facility]) Fluzone Quad 60 mcg (15 mcg x 4)/0.5 mL intramuscular susp. INJECT DIRECTED ALEX ([facility]) Escitalopram 10 MG Oral Tablet ALEX ([facility]) doxycycline hyclate 100 MG Oral Tablet ALEX ([facility]) Amoxicillin 875 MG / Clavulanate 125 MG Oral Tablet ALEX ([facility]) Acetaminophen 325 MG Oral Tablet ALEX ([facility]) Tobramycin 3 MG/ML Ophthalmic Solution ALEX ([facility]) tizanidine 2 MG Oral Tablet [place] ([facility]) methylprednisolone 4 mg tablets in a dos e pack TAKE DOSE BRIJESH DIRECTED ON SHEET ALEX ([facility]) Prednisone 20 MG Oral Tablet ALEX ([facility]) Naproxen 500 MG Oral Tablet ALEX ([facility]) methylprednisolone 4 mg tablets in a dos e pack TAKE DOSE BRIJESH DIRECTED ON SHEET ALEX ([facility]) meloxicam 7.5 MG Oral Tablet LAEX ([facility]) gabapentin 300 MG Oral Capsule ALEX ([facility]) Furosemide 20 MG Oral Tablet ALEX ([facility]) Fluzone Quad 60 mcg (15 mcg x 4)/0.5 mL intramuscular susp. INJECT DIRECTED ALEX ([facility]) Escitalopram 10 MG Oral Tablet ALEX ([facility]) doxycycline hyclate 100 MG Oral Tablet ALEX ([facility]) Amoxicillin 875 MG / Clavulanate 125 MG Oral Tablet ALEX ([facility]) Acetaminophen 325 MG Oral Tablet ALEX ([facility]) Tobramycin 3 MG/ML Ophthalmic Solution ALEX ([facility]) tizanidine 2 MG Oral Tablet ALEX ([facility]) Prednisone 20 MG Oral Tablet ALEX ([facility]) Naproxen 500 MG Oral Tablet ALEX ([facility]) methylprednisolone 4 mg tablets in a dos e pack TAKE DOSE BRIJESH DIRECTED ON SHEET ALEX ([facility]) meloxicam 7.5 MG Oral Tablet ALEX ([facility]) gabapentin 300 MG Oral Capsule ALEX ([facility]) Furosemide 20 MG Oral Tablet ALEX ([facility]) Fluzone Quad 60 mcg (15 mcg x 4)/0.5 mL intramuscular susp. INJECT DIRECTED ALEX ([facility]) Escitalopram 10 MG Oral Tablet ALEX ([facility]) doxycycline hyclate 100 MG Oral Tablet ALEX ([facility]) Amoxicillin 875 MG / Clavulanate 125 MG Oral Tablet ALEX ([facility]) Acetaminophen 325 MG Oral Tablet ALEX ([facility]) Tobramycin 3 MG/ML Ophthalmic Solution ALEX ([facility]) tizanidine 2 MG Oral Tablet ALEX ([facility]) Prednisone 20 MG Oral Tablet ALEX ([facility]) Naproxen 500 MG Oral Tablet ALEX ([facility]) methylprednisolone 4 mg tablets in a dos e pack TAKE DOSE BRIJESH DIRECTED ON SHEET ALEX ([facility]) meloxicam 7.5 MG Oral Tablet ALEX ([facility]) gabapentin 300 MG Oral Capsule ALEX ([facility]) Furosemide 20 MG Oral Tablet ALEX ([facility]) Fluzone Quad 60 mcg (15 mcg x 4)/0.5 mL intramuscular susp. INJECT DIRECTED [place] ([facility]) Escitalopram 10 MG Oral Tablet ALEX ([facility]) doxycycline hyclate 100 MG Oral Tablet ALEX ([facility]) Amoxicillin 875 MG / Clavulanate 125 MG Oral Tablet ALEX ([facility]) Acetaminophen 325 MG Oral Tablet ALEX ([facility]) doxycycline hyclate 100 MG Oral Tablet ALEX ([facility]) Amoxicillin 875 MG / Clavulanate 125 MG Oral Tablet ALEX ([facility]) Acetaminophen 325 MG Oral Tablet ALEX ([facility]) Tobramycin 3 MG/ML Ophthalmic Solution ALEX ([facility]) tizanidine 2 MG Oral Tablet ALEX ([facility]) Prednisone 20 MG Oral Tablet ALEX ([facility]) Naproxen 500 MG Oral Tablet ALEX ([facility]) methylprednisolone 4 mg tablets in a dos e pack TAKE DOSE BRIJESH DIRECTED ON SHEET ALEX ([facility]) meloxicam 7.5 MG Oral Tablet ALEX ([facility]) gabapentin 300 MG Oral Capsule ALEX ([facility]) Furosemide 20 MG Oral Tablet ALEX ([facility]) Fluzone Quad 60 mcg (15 mcg x 4)/0.5 mL intramuscular susp. INJECT DIRECTED ALEX ([facility]) Escitalopram 10 MG Oral Tablet ALEX ([facility]) doxycycline hyclate 100 MG Oral Tablet ALEX ([facility]) Amoxicillin 875 MG / Clavulanate 125 MG Oral Tablet ALEX ([facility]) Acetaminophen 325 MG Oral Tablet ALEX ([facility]) Tobramycin 3 MG/ML Ophthalmic Solution ALEX ([facility]) tizanidine 2 MG Oral Tablet ALEX ([facility]) Prednisone 20 MG Oral Tablet ALEX ([facility]) Naproxen 500 MG Oral Tablet ALEX ([facility]) methylprednisolone 4 mg tablets in a dos e pack TAKE DOSE BRIJESH DIRECTED ON SHEET ALEX ([facility]) meloxicam 7.5 MG Oral Tablet ALEX ([facility]) gabapentin 300 MG Oral Capsule [place] ([facility]) Furosemide 20 MG Oral Tablet [place] ([facility]) Fluzone Quad [id number] 60 mcg (15 mcg x 4)/0.5 mL intramuscular susp. INJECT DIRECTED [place] ([facility]) Escitalopram 10 MG Oral Tablet ALEX ([facility]) doxycycline hyclate 100 MG Oral Tablet ALEX ([facility]) Amoxicillin 875 MG / Clavulanate 125 MG Oral Tablet ALEX ([facility]) Acetaminophen 325 MG Oral Tablet ALEX ([facility])
[2021-05-05] MEDS: IPRATROPIUM 0.5MG/ALBUTEROL 2.5MG INH SOL UD 3ML (DUONEB) NEB SCH ×5 (08:00→20:00)
[2021-05-05] MEDS ORDERED: PILL CUTTER 1 EACH XX PRN (08:25)
[2021-05-05] MEDS: busPIRone 5 MG TAB PO SCH ×3 (09:11→22:34)
[2021-05-05 09:12] LABS: HEMATOCRIT 40.8 % (42.0-52.0); MEAN CORPUSCULAR HEMOGLOBIN 22.1 pg (27.0-33.0); MEAN CORPUSCULAR HGB CONC 29.4 g/dl (32.0-36.5); MEAN CORPUSCULAR VOLUME 75.3 fl (80.0-96.0); PLATELET COUNT, AUTOMATED 263 10^3/uL (150-450); RED BLOOD COUNT 5.42 10^6/uL (4.30-6.10); WHITE BLOOD COUNT 10.7 10^3/uL (4.0-10.0)
[2021-05-05] MEDS: METHADONE 10 MG TAB (S0109) PO SCH (09:12)
[2021-05-05] MEDS: DOXYCYCLINE HYCLATE 100MG TABLET PO SCH ×2 (09:13→22:28)
[2021-05-05] MEDS: MULTIVITAMINS/MINERALS THERAP 1 TAB PO SCH (09:13)
[2021-05-05] MEDS: PANTOPRAZOLE 40MG TAB (PROTONIX) PO SCH (09:13)
[2021-05-05 09:58] LABS: ALBUMIN 2.7 GM/DL (3.2-5.2); ALT/SGPT 15 U/L (12-78); BILIRUBIN,TOTAL 0.6 MG/DL (0.2-1.0); BLOOD UREA NITROGEN 9 MG/DL (7-18); CALCIUM LEVEL 8.1 MG/DL (8.5-10.1); CARBON DIOXIDE LEVEL 27 MEQ/L (21-32); CHLORIDE LEVEL 108 MEQ/L (98-107); CREATININE FOR GFR 1.27 MG/DL (0.70-1.30); GLOMERULAR FILTRATION RATE > 60.0 (>56); GLUCOSE, FASTING 113 MG/DL (70-100); POTASSIUM SERUM 4.4 MEQ/L (3.5-5.1); SODIUM LEVEL 140 MEQ/L (136-145); TOTAL PROTEIN 7.1 GM/DL (6.4-8.2)
[2021-05-05 11:15] VITALS: BP 118/86
[2021-05-05] MEDS ORDERED: MORPHINE 2 MG/ML 1ML VIAL (J2270) IV PRN (11:20)
[2021-05-05] MEDS: AMPICILLIN SOD/SULBACTAM SOD 3 GM in D5W MINI-BAG PLUS 100 ML IV SCH ×3 (11:56→22:28)
--- NOTE | 2021-05-05 13:28 | HPEPDOC ---
[facility] Medical History & Physical Date of Admission May 05, 2021 Date of Service: May 05, 2021 Attending Physician: Gladis Law MD History and Physical CHIEF COMPLAINT: left hand pain HISTORY OF PRESENT ILLNESS: Patient is a 50-year-old male with past medical history of HTN, GERD, HCV s/p treatment, polysubstance abuse on methadone therapy, Adult Pulmonary Langerhans Cell Histiocytosis, active smoker, recent history and hospitalization (03/31/21- 04/02/21) CAP, Pulmonary HTN, mild HFpEF (with recent exacerbation) with grade 1 diastolic dysfunction who presented to the emergency room with increasing left hand pain for the past 45 days. Patient states his pain began when his cat scratched him on his thumb on the left. Initially he states the pain was not present but she noticed increased redness, swelling and erythema extending up his left forearm. Yesterday he states the pain increased to 10/10, erythema worsened and he couldn't use his thumb as he normally would. He denies fevers, nausea, vomiting, diarrhea, the cat actually biting his finger, increased shortness of breath activity from baseline. Patient has baseline shortness of breath secondary to his chronic pulmonary disease with an associated cough. He states his cough is sometimes productive at baseline of thick logan colored phlegm. He denies any worsening of his respiratory symptoms from discharge of his last hospitalization which was just 03/31/2021 through 04/02/2021. Due to the increased swelling and redness the patient came to the ER for further evaluation. In the ER, vital signs were stable outside of the patient's oxygen dropping to 83% on RA . He was placed on 34 liters of O2. Chest x-ray The x-ray of the left hand was done showing soft tissue swelling along the radial aspect of the left wrist and left 1st metacarpal. Our orthopedic surgeon on-call suggested getting an MRI for further evaluation. MRI showed possible left abductor pollicis brevis, opponens pollicis, flexor pollicis brevis, adductor pollicis, and 1st dorsal interosseous muscles grade 1 muscle strains vs myositis. Tenosynovitis o f left flexor pollicis longus tendon, fluid in the left abductor pollicis longus and extensor pollicis brevis tendon sheaths, which can be seen with de Quervain tenosynovitis. ?left distal intersection syndrome and tendinosis involving the left extensor carpi ulnaris tendon at the level of the ulnar groove was commented on. Dr. Hassan our orthopedic surgeon had discussion with the hand surgeon at [facility] this a.m. and they reviewed the MRI imaging together. The hand surgeon felt that this is mostly a cellulitis process and there would not be much to drain or to have surgery on at this time. He suggested managing with IV antibiotics alone and did not think a transfer was warranted currently. Based off of this information the medicine service admitted the patient for left hand cellulitis, questionable pneumonia. REVIEW OF SYSTEMS: CONSTITUTIONAL: Denies lack of energy, unexplained weight gain or weight loss, loss of appetite, fever, night sweats EYES: Denies eye drainage, eye pain, visual changes, dry/irritated eye EARS, NOSE, MOUTH, THROAT: Denies difficulty hearing, ringing in ears, mouth sores, loose teeth, sore throat, facial numbness or pain NECK: Denies swollen glands CARDIOVASCULAR: Denies irregular heartbeat, racing heart, chest pains, swelling of feet or legs, pain in legs with walking RESPIRATORY: Denies shortness of breath, night sweats, wheezing, sputum production, oxygen at home, coughing up blood, cough lasting > 1 month GASTROINTESTINAL: Denies abdominal pain, constipation, bloody stool, diarrhea, heartburn, nausea, vomiting GENITOURINARY: Denies painful urination, bloody urine, frequent urination, urgency, leaking urine, impotence MUSCULOSKELETAL: Denies joint pain, muscle pain, leg swelling INTEGUMENTARY: Denies rash, itching, new skin lesion, change in existing skin lesion, hair loss or increase, breast changes. NEUROLOGICAL: Denies headaches, dizziness, difficulty walking, numbness or tingling PSYCHIATRIC: Denies depression, anxiety, recurrent bad thoughts, mood swings, hallucinations PAST MEDICAL HISTORY: HTN, GERD, HCV s/p treatment, polysubstance abuse on methadone therapy, Adult Pulmonary Langerhans Cell Histiocytosis, active smoker, recent history and hospitalization (03/31-04/02/21) CAP Pulmonary HTN, mild HFpEF (with recent exacerbation) with grade 1 diastolic dysfunction PAST SURGICAL HISTORY: Cervical fusion Unspec. b/l wrist surgeries Lung biopsy SOCIAL HISTORY: Current smoker, 2 cigarettes per day. History of one pack per day for 37 years. History of alcohol abuse but currently denies any alcohol use. History of illicit drug use with opiate addiction. Currently is on methadone that is prescribed by [facility]. Previously following with Dr. Greenfield at [facility]; however, is going to be established with the pulmonology office in [place] coming up shortly. FAMILY HISTORY: mother - DM ALLERGIES: Please see below. HOME MEDICATIONS: Please see below. PHYSICAL EXAMINATION: VS: 94% on 4 L NC, otherwise stable CONSTITUTIONAL: No acute distress, resting comfortably, AAO x 3 EYES: PERRLA, EOM intact HENT, MOUTH: Normocephalic, atraumatic, moist mucous membranes NECK: SUPPLE, no JVD, no lymphadenopathy, no carotid bruit CV: Regular rate and rhythm, S1S2 normal, no murmurs/rubs/gallops RESPIRATORY: Crackles bilaterally. Clear to auscultation bilaterally GI: BS positive in 4 quadrants, soft, nontender, nondistended, no rebound or guarding, no organomegaly : Deferred MUSCULOSKELETAL: Left hand swelling, mostly of left thumb. No erythema extending up arm; however, this was noted by ER provider earlier before abx. Decreasd ROM left thumb. + clubbing INTEGUMENTARY: Intact, no rashes, no lesions NEUROLOGIC: Cranial Nerves II-XII are intact, no focal deficits PSYCHIATRIC: Mood and affect are normal LABORATORY DATA: Please see below IMAGING: CXR: Chronic interstitial thickening, honeycombing, and traction bronchiectasis in both lungs that is similar in appearance compared to the prior chest x-ray on 03/31/2021 and can be seen with a usual interstitial pneumonia or nonspecific interstitial pneumonia pattern of lung disease. Left hand XR: 1. Soft tissue swelling along the radial aspect of the left wrist and left 1st metacarpal. 2. Degenerative changes involving the left distal radioulnar joint and radiocarpal joint, which have developed since the left wrist x-rays on 08/27/2016. 3. Postoperative changes are noted from a resection of the proximal portion of the left scaphoid, lunate, and a portion of the triquetrum, and there are several ossified bodies within and around the radiocarpal joint, which can also be seen in the left wrist x-rays on 08/27/2016. MRI left hand: 1. Increased T2 signal in the left abductor pollicis brevis, opponens pollicis, flexor pollicis brevis, adductor pollicis, and 1st dorsal interosseous muscles, which may represent grade 1 muscle strains or myositis. 2. Tenosynovitis involving the left flexor pollicis longus tendon. 3. Fluid in the left abductor pollicis longus and extensor pollicis brevis tendon sheaths, which can be seen with de Quervain tenosynovitis. 4. Fluid in the extensor pollicis longus tendon sheath and extensor carpi radialis longus and brevis tendon sheaths at the crossover point distal to Dakota's tubercle in the dorsal aspect of the wrist, which can be seen with a left distal intersection syndrome. 5. Tendinosis involving the left extensor carpi ulnaris tendon at the level of the ulnar groove. 6. 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 7. Mild osteoarthritis involving the left distal radioulnar, triscaphe, and basal joints. 8. Soft tissue edema along the radial aspect of the left wrist and left 1st metacarpal. Echocardiogram 03/2021: Sinus bradycardia without intraventricular conduction disturbance. M-mode and 2-dimensional echocardiography was performed with pulse, continuous wave, color flow, and tissue Doppler studies. Borderline hypertrophied left ventricle with hyperkinetic wall motion. Slightly dilated left atrium with grade 1 LV diastolic dysfunction but currently normal estimated mean left atrial pressure. Mildly dilated right heart chambers with normal wall motion and Doppler evidence of mild pulmonary hypertension. Normal IVC size and collapse against an elevated central venous pressure. Mildly dilated aortic root but normal ascending and aortic arch diameters. Normal-appearing and functional aortic valve. Normal-appearing and functioning mitral valve and tricuspid valve with mild tricuspid insufficiency. No apparent intracardiac mass or pericardial effusion. ASSESSMENT: 50-year-old male with past medical history of HTN, GERD, HCV s/p treatment, polysubstance abuse on methadone therapy, Adult Pulmonary Langerhans Cell Histiocytosis, active smoker, recent history and hospitalization (03/31/21- 04/02/21) CAP, Pulmonary HTN, mild HFpEF (with recent exacerbation) with grade 1 diastolic dysfunction admitted for left hand cellulitis, questionable pneumonia. PLAN: Left hand cellulitis s/p cat scratch -All imaging above -Borderline fever, WBC 14K on admission, LA wnl -Zosyn IV, pain control -F/u BCx x 2 sets -Case already discussed with Dr. 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 Adult Pulmonary Langerhans Cell Histiocytosis -CXR above, may not necessarily be new PNA; however, on and off O2 in the ER -Currently O2 dropped to 83 % with activity so was placed back on 4 L NC -What may be happening is that patient is likely dropping intermittently at home anyway, states he DOES NOT feel more SOB since discharge from last admission 04/02/21 -F/u procalcitonin, if neg stop abx -F/u Sputum cx -C/w duoneb, albuterol, zosyn, doxy, tylenol -He is to establish as new patient with pulmonary group in [place] this coming month HFpEF with likely improving mild exacerbation -No gross s/s of fluid overload -BNP 4K, last admission on 03/2021 was slightly over 6K -Given one dose lasix -Not on home BB, holding ACEi due to incr Cr -Echo above -Suggest f/u with cardiology o/p Elevated Cr likely 2/2 to home ACEi, prerenal causes -Resolved since first labs drawn -BP stable, does not drink fluids like he should -Stop ACEi for now, avoid nephrotoxic meds -Daily labs Polysubstance abuse on methadone therapy -Discussed his pain medications- states that his pain is severe even on methadone. -Morphine PRN for now, c/w methadone -As swelling improves, will not have need for both so deescalate as fit HTN -Stable -Hold ACEi Tobacco use -Nicotine patch GERD -PPI DVT px -Heparin SC DISPOSITION: Admitted under acute inpatient status. Plan is d/c home when medically improved. Vital Signs Vital Signs Date Time Temp Pulse Resp B/P (MAP) Pulse Ox O2 Delivery O2 Flow Rate FiO2 05/05/21 12:05 16 05/05/21 11:15 98.1 67 118/86 (97) 83 05/05/21 11:00 Nasal Cannula 3.0 Laboratory Data Labs 24H Laboratory Tests 2 05/04/21 21:55: Blood Gas Bicarbonate Standard 23.9, Arterial Blood pH 7.427, Arterial Blood Partial Pressure CO2 36.1, Arterial Blood Partial Pressure O2 79.7, Arterial Blood Total CO2 24.4, Arterial Blood HCO3 23.3, Arterial Blood Base Excess -0.7, Arterial Blood Oxygen Saturation 95.9 05/04/21 22:05: Immature Granulocyte % (Auto) 0.4, Neutrophils (%) (Auto) 74.1H, Lymphocytes (%) (Auto) 15.4L, Monocytes (%) (Auto) 9.0H, Eosinophils (%) (Auto) 0.8, Basophils (%) (Auto) 0.3, Neutrophils # (Auto) 10.5H, Lymphocytes # (Auto) 2.2, Monocytes # (Auto) 1.3H, Eosinophils # (Auto) 0.1, Basophils # (Auto) 0.0, Nucleated Red Blood Cells % (auto) 0.0, Erythrocyte Sedimentation Rate 33H, Anion Gap 5L, Glomerular Filtration Rate 56.0, Calcium Level 8.1L, Total Bilirubin 0.3, Direct Bilirubin 0.1, Aspartate Amino Transf (AST/SGOT) 26, Alanine Aminotransferase (ALT/SGPT) 18, Alkaline Phosphatase 111, Total Creatine Kinase 101, Creatine Kinase MB 1.6, Creatine Kinase MB Relative Index 1.58, Troponin I < 0.02, C- Reactive Protein, Quantitative 4.68H, AV-Ffb-V-Type Natriuretic Peptide 4146H, Total Protein 7.6, Albumin 3.0L, Albumin/Globulin Ratio 0.7, Thyroid Stimulating Hormone (TSH) 1.330 05/05/21 09:03: Nucleated Red Blood Cells % (auto) 0.0, Anion Gap 5L, Glomerular Filtration Rate > 60.0, Calcium Level 8.1L, Total Bilirubin 0.6#, Aspartate Amino Transf (AST/SGOT) 18, Alanine Aminotransferase (ALT/SGPT) 15, Alkaline Phosphatase 100, Total Protein 7.1, Albumin 2.7L, Albumin/Globulin Ratio 0.6 CBC/BMP Laboratory Tests 05/04/21 22:05 05/05/21 09:03 Microbiology Microbiology 05/05/21 Gram Stain, Received Pending 05/05/21 Sputum Culture, Received Pending 05/04/21 Blood Culture, Received Pending 05/04/21 Blood Culture, Received Pending 05/04/21 Respiratory Virus Panel (PCR) ([facility]) - Final, Complete Home Medications Scheduled Buspirone HCl (Buspirone HCl) 5 Mg Tablet, 5 MG PO TID Lisinopril (Lisinopril) 10 Mg Tablet, 10 MG PO DAILY Methadone HCl (Methadone Intensol) 10 Mg/1 Ml Oral.conc, 135 MG PO DAILY Multivitamins (Thera M Plus Tablet) 1 Tab Tab, 1 TAB PO DAILY Pantoprazole Sodium (Pantoprazole Sodium) 40 Mg Tablet.dr, 40 MG PO DAILY Testosterone Cypionate (Testosterone Cypionate) 100 Mg/1 Ml Vial, 100 MG IM QWEEK TUESDAYS Scheduled PRN Albuterol Sulfate (Proair Hfa) 108 Mcg/Act Aer, 2 PUFFS INH QID PRN for SHORTNESS OF BREATH Pregabalin (Pregabalin) 150 Mg Capsule, 150 MG PO BID PRN for PAIN LEVEL 1-4 Allergies Coded Allergies: No Known Allergies (Unverified , 03/01/20) A-FIB/CHADSVASC A-FIB History Current/History of A-Fib/PAF?: No Current PO Anticoag Therapy: No Age/Risk Factor Scoring CHADSVASC: CHADSVASC Response (Comments) Value Age Risk Factor Age < 65 years old 0 Gender Risk Factor Male 0 Hx of CHF Yes 1 Hx of HTN Yes 1 Hx of Stroke/TIA/or VTE No 0 Hx of Diabetes No 0 Hx of Vascular Disease No 0 Total 2 Treatment Treatment ordered: Other Other anticoagulant ordered: heparin Gladis Law MD May 05, 2021 13:28
[2021-05-05] MEDS: NICOTINE 21MG/24HR 1 EA TRANSDERMAL TD SCH (13:37)
[2021-05-05 14:00] VITALS: BP 125/82
[2021-05-05] MEDS: ACETAMINOPHEN TAB 650MG DOSE (2X325MG) PO PRN ×2 (16:51→22:29)
--- NOTE | 2021-05-05 18:22 | ECGEPIP ---
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
[2021-05-05 21:32] LABS: INR 1.16; PROTHROMBIN TIME 15.2 SECONDS (12.7-14.5)
[2021-05-05 21:33] LABS: PARTIAL THROMBOPLASTIN TIME 33.9 SECONDS (25.9-37.0)
[2021-05-05 22:00] VITALS: BP 127/71
[2021-05-05] MEDS: HEPARIN SOD (PORCINE) 5000UNITS/ML 1ML VIAL/SYRINGE SQ SCH (22:28)
[2021-05-06] MEDS: IPRATROPIUM 0.5MG/ALBUTEROL 2.5MG INH SOL UD 3ML (DUONEB) NEB SCH ×3 (04:00→08:00)
[2021-05-06] MEDS: AMPICILLIN SOD/SULBACTAM SOD 3 GM in D5W MINI-BAG PLUS 100 ML IV SCH ×2 (05:39→10:45)
[2021-05-06 06:00] VITALS: BP 120/66
[2021-05-06] MEDS: HEPARIN SOD (PORCINE) 5000UNITS/ML 1ML VIAL/SYRINGE SQ SCH (08:41)
[2021-05-06] MEDS: NICOTINE 21MG/24HR 1 EA TRANSDERMAL TD SCH ×2 (08:41→08:44)
[2021-05-06] MEDS: PANTOPRAZOLE 40MG TAB (PROTONIX) PO SCH (08:42)
[2021-05-06] MEDS: METHADONE 10 MG TAB (S0109) PO SCH (08:42)
[2021-05-06] MEDS: DOXYCYCLINE HYCLATE 100MG TABLET PO SCH (08:42)
[2021-05-06] MEDS: MULTIVITAMINS/MINERALS THERAP 1 TAB PO SCH (08:42)
[2021-05-06] MEDS: busPIRone 5 MG TAB PO SCH (08:42)
[2021-05-06 10:02] LABS: HEMATOCRIT 45.6 % (42.0-52.0); HEMOGLOBIN 13.4 g/dl (13.5-17.5); MEAN CORPUSCULAR HEMOGLOBIN 22.3 pg (27.0-33.0); MEAN CORPUSCULAR HGB CONC 29.4 g/dl (32.0-36.5); MEAN CORPUSCULAR VOLUME 75.7 fl (80.0-96.0); PLATELET COUNT, AUTOMATED 224 10^3/uL (150-450); RED BLOOD COUNT 6.02 10^6/uL (4.30-6.10); WHITE BLOOD COUNT 8.4 10^3/uL (4.0-10.0)
[2021-05-06 10:22] LABS: ALBUMIN 2.9 GM/DL (3.2-5.2); ALT/SGPT 15 U/L (12-78); BILIRUBIN,TOTAL 0.6 MG/DL (0.2-1.0); BLOOD UREA NITROGEN 10 MG/DL (7-18); CALCIUM LEVEL 9.4 MG/DL (8.5-10.1); CARBON DIOXIDE LEVEL 28 MEQ/L (21-32); CHLORIDE LEVEL 107 MEQ/L (98-107); CREATININE FOR GFR 1.07 MG/DL (0.70-1.30); GLOMERULAR FILTRATION RATE > 60.0 (>56); GLUCOSE, FASTING 90 MG/DL (70-100); MAGNESIUM LEVEL 1.8 MG/DL (1.8-2.4); POTASSIUM SERUM 4.3 MEQ/L (3.5-5.1); SODIUM LEVEL 139 MEQ/L (136-145)
[2021-05-06] MEDS ORDERED: AUGM875T28 PO (11:43)
[2021-05-06] MEDS ORDERED: DOXY100T PO (11:43)
[2021-05-06] MEDS ORDERED: PROB250C PO (11:44)
--- NOTE | 2021-05-06 14:33 | DS.PDOC ---
Discharge Summary General Date of Admission May 05, 2021 at 06:54 Date of Discharge 05/06/2021 Attending Physician: REMIGIO LANDRUM MD Discharge Summary PROCEDURES PERFORMED DURING STAY: None ADMITTING DIAGNOSES: L hand cellulitis DISCHARGE DIAGNOSES: L hand cellulitis Acute hypoxemic respiratory failure HTN GERD History of HCV s/p treatment Polysubstance abuse on methadone therapy Adult Pulmonary Langerhans Cell Histiocytosis Active smoker Pulmonary Chronic HFpEF with grade 1 diastolic dysfunction COMPLICATIONS/CHIEF COMPLAINT: Cellulitis Of Hand, Pneumonia. HISTORY OF PRESENT ILLNESS: 50-year-old M with past medical history of HTN, GERD, HCV s/p treatment, po lysubstance abuse on methadone therapy, Adult Pulmonary Langerhans Cell Histiocytosis, active smoker, recent history and hospitalization (03/31/21- 04/02/21) for CAP, Pulmonary HTN, mild HFpEF (with recent exacerbation) with grade 1 diastolic dysfunction who presented to the emergency room with increas ing left hand pain for 45 days. Patient reported his pain began when his cat scratched him on his thumb on the left. Initially he had no pain but he noticed increased redness, swelling and erythema extending up his left forearm. The day before presentation, the pain increased to 10/10, erythema worsened and he couldn't use his thumb as he normally would. He denied fevers, nausea, vomiting, diarrhea, the cat actually biting his finger, or increased shortness of breath activity from baseline. Patient has baseline shortness of breath secondary to his chronic pulmonary disease with an associated cough. He denied any worsening of his respiratory symptoms from discharge of his last hospitalization which was 03/31/2021 through 04/02/2021. HOSPITAL COURSE: In the ER, vital signs were stable outside of the patient's oxygen dropping to 83% on RA. He was placed on 34 liters of O2. The x-ray of the left hand was done showing soft tissue swelling along the radial aspect of the left wrist and left 1st metacarpal. Our orthopedic surgeon on-call suggested getting an MRI for further evaluation. MRI showed possible left abductor pollicis brevis, opponens pollicis, flexor pollicis brevis, adductor pollicis, and 1st dorsal interosseous muscles grade 1 muscle strains vs myositis. Tenosynovitis of left flexor pollicis longus tendon, fluid in the left abductor pollicis longus and extensor pollicis brevis tendon sheaths, which can be seen with de Quervain tenosynovitis. ?left distal intersection syndrome and tendinosis involving the left extensor carpi ulnaris tendon at the level of the ulnar groove was commented on. Dr. Hassan our orthopedic surgeon had discussion with the hand surgeon at [facility] this a.m. and they reviewed the MRI imaging together. The hand surgeon felt that this is mostly a cellulitis process and there would not be much to drain or to have surgery on at this time. He suggested managing with IV antibiotics alone and did not think a transfer was warranted currently. Based off of this information the medicine service admitted the patient for left hand cellulitis, questionable pneumonia. His hand erythema resolved, swelling drastically improved and hotness to touch also resolved with IV unasyn and PO doxy. His hypoxemia also resolved. He is now being discharged home on PO augmentin/doxy to complete a 7d course with close PCP follow up and plan for the already scheduled pulmonology appointment in [place]. DISCHARGE MEDICATIONS: Please see below. ALLERGIES: Please see below. PHYSICAL EXAMINATION ON DISCHARGE: VITAL SIGNS: Please see below. CONSTITUTIONAL: No acute distress, resting comfortably, AAO x 3 EYES: PERRLA, EOM intact HENT, MOUTH: Normocephalic, atraumatic, moist mucous membranes NECK: SUPPLE, no JVD, no lymphadenopathy, no carotid bruit CV: Regular rate and rhythm, S1S2 normal, no murmurs/rubs/gallops RESPIRATORY: Crackles bilaterally. Clear to auscultation bilaterally GI: BS positive in 4 quadrants, soft, nontender, nondistended, no rebound or guarding, no organomegaly MUSCULOSKELETAL: Left hand w/ mild swelling of the base of the left thumb. No erythema. FROM left thumb. INTEGUMENTARY: Intact, no rashes, no lesions NEUROLOGIC: Cranial Nerves II-XII are intact, no focal deficits PSYCHIATRIC: Mood and affect are normal LABORATORY DATA: Please see below. IMAGING: CXR: Chronic interstitial thickening, honeycombing, and traction bronchiectasis in both lungs that is similar in appearance compared to the prior chest x-ray on 03/31/2021 and can be seen with a usual interstitial pneumonia or nonspecific interstitial pneumonia pattern of lung disease. Left hand XR: 1. Soft tissue swelling along the radial aspect of the left wrist and left 1st metacarpal. 2. Degenerative changes involving the left distal radioulnar joint and radiocarpal joint, which have developed since the left wrist x-rays on 08/27/2016. 3. Postoperative changes are noted from a resection of the proximal portion of the left scaphoid, lunate, and a portion of the triquetrum, and there are several ossified bodies within and around the radiocarpal joint, which can also be seen in the left wrist x-rays on 08/27/2016. MRI left hand: 1. Increased T2 signal in the left abductor pollicis brevis, opponens pollicis, flexor pollicis brevis, adductor pollicis, and 1st dorsal interosseous muscles, which may represent grade 1 muscle strains or myositis. 2. Tenosynovitis involving the left flexor pollicis longus tendon. 3. Fluid in the left abductor pollicis longus and extensor pollicis brevis tendon sheaths, which can be seen with de Quervain tenosynovitis. 4. Fluid in the extensor pollicis longus tendon sheath and extensor carpi radialis longus and brevis tendon sheaths at the crossover point distal to Dakota's tubercle in the dorsal aspect of the wrist, which can be seen with a left distal intersection syndrome. 5. Tendinosis involving the left extensor carpi ulnaris tendon at the level of the ulnar groove. 6. 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 7. Mild osteoarthritis involving the left distal radioulnar, triscaphe, and basal joints. 8. Soft tissue edema along the radial aspect of the left wrist and left 1st metacarpal. PROGNOSIS: good ACTIVITY: As tolerated DIET: 2g sodium DISCHARGE PLAN: Home with 7d of augmentin/doxy and close PCP followup within 7d of hospital discharge. F/u as scheduled with [place] pulmonology. DISPOSITION: 01 Home, Self-Care. DISCHARGE INSTRUCTIONS: Home with 7d of augmentin/doxy and close PCP followup within 7d of hospital discharge. F/u as scheduled with [place] pulmonology. ITEMS TO FOLLOWUP ON ON OUTPATIENT: L hand cellulitis Pulmonology follow up DISCHARGE CONDITION: Stable TIME SPENT ON DISCHARGE: 40 minutes. Vital Signs/I&Os Vital Signs Date Time Temp Pulse Resp B/P (MAP) Pulse Ox O2 Delivery O2 Flow Rate FiO2 05/06/21 10:45 91 Room Air 05/06/21 06:00 97.4 64 18 120/66 (84) 3.0 I&O- Last 24 Hours up to 6 AM 05/06/21 06:00 Intake Total 2530 ml Output Total 1250 ml Balance 1280 ml Laboratory Data Labs 24H Laboratory Tests 2 05/05/21 21:05: Prothrombin Time 15.2H, Prothromb Time International Ratio 1.16, Activated Partial Thromboplast Time 33.9 05/06/21 09:36: Nucleated Red Blood Cells % (auto) 0.0, Anion Gap 4L, Glomerular Filtration Rate > 60.0, Calcium Level 9.4#, Magnesium Level 1.8, Total Bilirubin 0.6, Aspartate Amino Transf (AST/SGOT) 18, Alanine Aminotransferase (ALT/SGPT) 15, Alkaline Phosphatase 100, Total Protein 8.0, Albumin 2.9L, Albumin/Globulin Ratio 0.6 CBC/BMP Laboratory Tests 05/06/21 09:36 Microbiology Microbiology 05/05/21 Gram Stain - Final, Resulted 05/05/21 Sputum Culture, Resulted Pending 05/04/21 Blood Culture - Preliminary, Resulted No growth after 24 hours . All specim... 05/04/21 Blood Culture - Preliminary, Resulted No growth after 24 hours . All specim... 05/04/21 Respiratory Virus Panel (PCR) (RICHARD) - Final, Complete Discharge Medications Scheduled Amoxicillin/Potassium Clav (Augmentin 875-125 Tablet) 1 Each Tablet, 1 TAB PO BI D Buspirone HCl (Buspirone HCl) 5 Mg Tablet, 5 MG PO TID, (Reported) Doxycycline Hyclate (Doxycycline Hyclate) 100 Mg Tablet, 100 MG PO BID Lisinopril (Lisinopril) 10 Mg Tablet, 10 MG PO DAILY, (Reported) Methadone HCl (Methadone Intensol) 10 Mg/1 Ml Oral.conc, 135 MG PO DAILY, (Rep orted) Multivitamins (Thera M Plus Tablet) 1 Tab Tab, 1 TAB PO DAILY, (Reported) Pantoprazole Sodium (Pantoprazole Sodium) 40 Mg Tablet.dr, 40 MG PO DAILY, (Reported) Saccharomyces Boulardii (Probiotic) 250 Mg Capsule, 1 CAP PO DAILY Testosterone Cypionate (Testosterone Cypionate) 100 Mg/1 Ml Vial, 100 MG IM QWEEK, (Reported) TUESDAYS Scheduled PRN Albuterol Sulfate (Proair Hfa) 108 Mcg/Act Aer, 2 PUFFS INH QID PRN for SHORTNESS OF BREATH, (Reported) Pregabalin (Pregabalin) 150 Mg Capsule, 150 MG PO BID PRN for PAIN LEVEL 1-4, (Reported) Allergies Coded Allergies: No Known Allergies (Unverified , 03/01/20) REMIGIO LANDRUM MD May 06, 2021 14:33
== END 2021-05-06 12:23 | disposition home or self-care (01) | DRG 602 ==
LOC: M ED 20:38 → M ED INP 05-05 06:54 → ENRESERV 05-05 08:30 → M MSPAV 05-05 11:31
PROVIDERS: ADMIT Internal Medicine; ATTEND Internal Medicine
DX: L03.114 Cellulitis of left upper limb (principal); I50.33 Acute on chronic diastolic (congestive) heart failure; J18.9 Pneumonia, unspecified organism; J96.01 Acute respiratory failure with hypoxia; J84.82 Adult pulmonary Langerhans cell histiocytosis; C96.6 Unifocal Langerhans-cell histiocytosis; S60.512A Abrasion of left hand, initial encounter; I11.0 Hypertensive heart disease with heart failure; K21.9 Gastro-esophageal reflux disease without esophagitis; F17.200 Nicotine dependence, unspecified, uncomplicated; Z79.899 Other long term (current) drug therapy; W55.03XA Scratched by cat, initial encounter; Y92.009 Unspecified place in unspecified non-institutional (private) residence as the place of occurrence of the external cause

== ENCOUNTER 2021-06-07 15:46 | Emergency (ER) | payer MEDICARE ==
[~2021-06-07] VITALS: Ht 182.9 cm; Wt 98.6 kg
[~2021-06-07 15:46] MED LIST changes: +BUSP5TA PO; -CEFD1CAP8 PO; +CEFD300C41 PO; +PROB250C PO
[2021-06-07 15:47] VITALS: BP 135/74
== END 2021-06-07 21:42 | disposition left against medical advice (07) ==
LOC: M ED 15:46
DX: Z53.21 Procedure and treatment not carried out due to patient leaving prior to being seen by health care provider (principal)

== ENCOUNTER 2021-07-15 11:16 | Emergency (ER) | payer MEDICARE ==
[~2021-07-15 11:16] MED LIST changes: +CEFD1CAP8 PO; -CEFD300C41 PO
[2021-07-15] MEDS ORDERED: methylPREDNISolone 125MG 2ML VIAL IV ONE (11:35)
[2021-07-15 11:56] LABS: VENOUS BASE EXCESS 0.6 (-2.0-2.0); VENOUS HCO3 25.6 MEQ/L (23.0-27.0); VENOUS O2 SATURATION 96.6 % (60.0-80.0); VENOUS PARTIAL PRESSURE CO2 42.3 mmHg (38.0-50.0); VENOUS PARTIAL PRESSURE O2 87.4 mmHg (30.0-50.0); VENOUS PH 7.399 UNITS (7.330-7.430); VENOUS TOTAL CO2 26.9 MEQ/L (24.0-28.0)
[2021-07-15 12:06] LABS: BASO % 0.1 % (0.0-1.0); HEMATOCRIT 42.3 % (42.0-52.0); HEMOGLOBIN 12.1 g/dl (13.5-17.5); LYMPH # 0.6 10^3/uL (1.5-5.0); LYMPH % 6.4 % (24.0-44.0); MEAN CORPUSCULAR HEMOGLOBIN 19.9 pg (27.0-33.0); MEAN CORPUSCULAR HGB CONC 28.6 g/dl (32.0-36.5); MEAN CORPUSCULAR VOLUME 69.6 fl (80.0-96.0); MONO # 0.2 10^3/uL (0.0-0.8); MONO % 1.5 % (2.0-8.0); NEUTROPHILS # 8.9 10^3/uL (1.5-8.5); NEUTROPHILS % 91.6 % (36.0-66.0); PLATELET COUNT, AUTOMATED 281 10^3/uL (150-450); RED BLOOD COUNT 6.08 10^6/uL (4.30-6.10); WHITE BLOOD COUNT 9.7 10^3/uL (4.0-10.0)
--- NOTE | 2021-07-15 12:27 | REP ---
INDICATION: DYSPNEA/COUGH. COMPARISON: 05/04/2021 also portable TECHNIQUE: Portable FINDINGS: The technique utilized in obtaining the radiograph has magnified the cardiac silhouette and accentuated the interstitial markings. The cardiomediastinal silhouette lung duhram are unchanged. There is cardiomegaly accentuated by technique. There is a diffuse increase in the interstitial markings status quo. No acute patchy parenchymal opacities or pleural effusions have developed. There is no significant change in appearance of the osseous structures IMPRESSION: Stable portable chest. Correlate clinically to rule out the possibility of acute disease superimposed upon chronic change. <Electronically signed by Candelario Walsh > 07/15/21 [id number]
[2021-07-15 12:31] VITALS: BP 155/85
[2021-07-15 12:43] LABS: ALBUMIN 3.7 GM/DL (3.2-5.2); ALT/SGPT 21 U/L (12-78); BILIRUBIN,DIRECT 0.4 MG/DL (0.0-0.2); BILIRUBIN,TOTAL 0.9 MG/DL (0.2-1.0); BLOOD UREA NITROGEN 15 MG/DL (7-18); CARBON DIOXIDE LEVEL 26 MEQ/L (21-32); CHLORIDE LEVEL 105 MEQ/L (98-107); CREATININE FOR GFR 1.16 MG/DL (0.70-1.30); GLOMERULAR FILTRATION RATE > 60.0 (>56); GLUCOSE, FASTING 112 MG/DL (70-100); NT-PRO BNP 1254 PG/ML (<125); POTASSIUM SERUM 4.3 MEQ/L (3.5-5.1); SODIUM LEVEL 139 MEQ/L (136-145); TOTAL PROTEIN 7.9 GM/DL (6.4-8.2)
[2021-07-15 12:44] LABS: RSV AMPLIFICATION NEGATIVE (NEGATIVE)
--- NOTE | 2021-07-16 00:58 | ECGEPIP ---
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
== END 2021-07-15 15:00 | disposition left against medical advice (07) ==
LOC: EDBD 11:16 → M ED 11:16
DX: R06.00 Dyspnea, unspecified (principal); I11.0 Hypertensive heart disease with heart failure; I50.9 Heart failure, unspecified; G47.33 Obstructive sleep apnea (adult) (pediatric); F11.20 Opioid dependence, uncomplicated; F17.200 Nicotine dependence, unspecified, uncomplicated
CPT/HCPCS: 71045; 80048; 80076; 82803; 83605; 83880; 84443; 85025; 87040; 87631; 93005; 93041; 96374; 99285; J2930

== ENCOUNTER → 2021-12-23 | Outpatient (CLI) | payer MEDICARE, MEDICAID ==
[~2021-12-23] MED LIST changes: -CEFD1CAP8 PO; +CEFD300C41 PO
[2021-12-23 14:19] LABS: HEMATOCRIT 46.6 % (42.0-52.0); HEMOGLOBIN 14.7 g/dl (13.5-17.5); MEAN CORPUSCULAR HEMOGLOBIN 26.5 pg (27.0-33.0); MEAN CORPUSCULAR HGB CONC 31.5 g/dl (32.0-36.5); PLATELET COUNT, AUTOMATED 210 10^3/uL (150-450); RED BLOOD COUNT 5.55 10^6/uL (4.30-6.10); WHITE BLOOD COUNT 13.8 10^3/uL (4.0-10.0)
[2021-12-23 14:49] LABS: ALBUMIN 3.7 GM/DL (3.2-5.2); ALT/SGPT 26 U/L (12-78); BILIRUBIN,TOTAL 0.3 MG/DL (0.2-1.0); BLOOD UREA NITROGEN 16 MG/DL (7-18); CALCIUM LEVEL 9.9 MG/DL (8.5-10.1); CARBON DIOXIDE LEVEL 28 MEQ/L (21-32); CHLORIDE LEVEL 102 MEQ/L (98-107); CREATININE FOR GFR 1.22 MG/DL (0.70-1.30); GLOMERULAR FILTRATION RATE > 60.0 (>56); GLUCOSE, FASTING 98 MG/DL (70-100); POTASSIUM SERUM 4.6 MEQ/L (3.5-5.1); SODIUM LEVEL 138 MEQ/L (136-145); TOTAL PROTEIN 8.1 GM/DL (6.4-8.2)
[2021-12-23 15:09] LABS: HEPATITIS B SURFACE ANTIGEN NEGATIVE (NEGATIVE)
[2021-12-23 15:38] LABS: HIV 1&2 SCREEN CENTAUR NEGATIVE (NEGATIVE)
[2021-12-23 16:03] LABS: HEPATITIS C VIRUS ABY INDEX > 11.0 INDEX (<0.8)
[2021-12-23 16:10] LABS: GC DNA AMPLIFICATION NEGATIVE (NEGATIVE)
== END ==
LOC: M LAB 13:19
PROVIDERS: ATTEND Family Medicine
DX: F11.20 Opioid dependence, uncomplicated (principal)

== ENCOUNTER 2022-04-22 18:33 | Inpatient (IN) | payer MEDICARE, MEDICAID ==
[~2022-04-22] VITALS: Ht 182.9 cm; Wt 110.7 kg
[2022-04-22 19:05] LABS: VENOUS BASE EXCESS -2.3 (-2.0-2.0); VENOUS HCO3 23.6 MEQ/L (23.0-27.0); VENOUS O2 SATURATION 97.1 % (60.0-80.0); VENOUS PARTIAL PRESSURE CO2 44.4 mmHg (38.0-50.0); VENOUS PARTIAL PRESSURE O2 98.2 mmHg (30.0-50.0); VENOUS PH 7.343 UNITS (7.330-7.430); VENOUS STANDARD HCO3 22.6 MEQ/L; VENOUS TOTAL CO2 24.9 MEQ/L (24.0-28.0)
[2022-04-22] MEDS ORDERED: IPRATROPIUM 0.5MG/ALBUTEROL 2.5MG INH SOL UD 3ML (DUONEB) NEB ONE (19:05)
[2022-04-22 19:09] LABS: BASO % 0.3 % (0.0-1.0); EOS % 0.1 % (0.0-3.0); HEMATOCRIT 47.6 % (42.0-52.0); HEMOGLOBIN 13.6 g/dl (13.5-17.5); LYMPH % 15.1 % (24.0-44.0); MEAN CORPUSCULAR HEMOGLOBIN 21.6 pg (27.0-33.0); MEAN CORPUSCULAR HGB CONC 28.6 g/dl (32.0-36.5); MEAN CORPUSCULAR VOLUME 75.7 fl (80.0-96.0); MONO # 0.9 10^3/uL (0.0-0.8); MONO % 6.4 % (2.0-8.0); NEUTROPHILS # 10.3 10^3/uL (1.5-8.5); NEUTROPHILS % 77.4 % (36.0-66.0); PLATELET COUNT, AUTOMATED 259 10^3/uL (150-450); RED BLOOD COUNT 6.29 10^6/uL (4.30-6.10); WHITE BLOOD COUNT 13.3 10^3/uL (4.0-10.0)
[2022-04-22 19:22] LABS: ABG HCO3 29.1 MEQ/L (22.0-26.0); ABG O2 SATURATION 98.9 % (95.0-99.0); ABG PARTIAL PRESSURE CO2 50.6 mmHg (35.0-45.0); ABG PARTIAL PRESSURE O2 148.7 mmHg (75.0-100.0); ABG STANDARD HCO3 27.2 MEQ/L (22.0-26.0); ABG TOTAL CO2 30.7 MEQ/L (22.0-29.0); ABG pH (ARTERIAL) 7.378 UNITS (7.350-7.450)
[2022-04-22 19:48] LABS: ALBUMIN 3.4 GM/DL (3.2-5.2); BILIRUBIN,DIRECT 0.2 MG/DL (0.0-0.2); BILIRUBIN,TOTAL 0.4 MG/DL (0.2-1.0); CALCIUM LEVEL 8.8 MG/DL (8.5-10.1); CREATININE FOR GFR 1.59 MG/DL (0.70-1.30); GLOMERULAR FILTRATION RATE 48.9 (>56); POTASSIUM SERUM 5.1 MEQ/L (3.5-5.1); THYROID STIMULATING HORMONE 1.57 uIU/ML (0.358-3.740); TOTAL PROTEIN 7.4 GM/DL (6.4-8.2)
[2022-04-22 19:54] LABS: CPK CREATINE PHOSPHOKINASE 90 U/L (39-308)
[2022-04-22] MEDS ORDERED: ISOVUE-370 76% 100ML VIAL As Ordered ONE (20:39)
[2022-04-22 21:30] LABS: CPK CREATINE PHOSPHOKINASE 91 U/L (39-308)
[2022-04-22] MEDS ORDERED: ACETAMINOPHEN TAB 650MG DOSE (2X325MG) PO PRN (23:35)
[2022-04-22] MEDS ORDERED: TRAZ-252 PO (23:55)
[2022-04-22] MEDS ORDERED: PRED10TA2 PO (23:55)
[2022-04-22] MEDS ORDERED: ALBU8.5H INH (23:55)
[2022-04-22] MEDS ORDERED: BUSP10TA PO (23:55)
[2022-04-22] MEDS ORDERED: NICO4GUM42 MT (23:55)
[2022-04-22] MEDS ORDERED: ADV500INH INH (23:55)
[2022-04-23] MEDS: IPRATROPIUM 0.5MG/ALBUTEROL 2.5MG INH SOL UD 3ML (DUONEB) NEB SCH ×4 (03:00→20:00)
[2022-04-23] MEDS ORDERED: ALBUTEROL SULFATE 2.5 MG/0.5 ML INH NEB SOLN NEB PRN (03:40)
[2022-04-23] MEDS ORDERED: METH10CO3 PO (03:50)
[2022-04-23] MEDS ORDERED: methylPREDNISolone 40MG 1ML VIAL IM SCH (06:00)
[2022-04-23] MEDS: HEPARIN SOD (PORCINE) 5000UNITS/ML 1ML VIAL/SYRINGE SC SCH ×3 (06:20→23:33)
[2022-04-23 06:21] LABS: BLOOD UREA NITROGEN 11 MG/DL (7-18); CALCIUM LEVEL 8.7 MG/DL (8.5-10.1); CARBON DIOXIDE LEVEL 29 MEQ/L (21-32); CHLORIDE LEVEL 102 MEQ/L (98-107); CREATININE FOR GFR 1.26 MG/DL (0.70-1.30); GLOMERULAR FILTRATION RATE > 60.0 (>56); GLUCOSE, FASTING 67 MG/DL (70-100); POTASSIUM SERUM 4.5 MEQ/L (3.5-5.1); SODIUM LEVEL 139 MEQ/L (136-145)
[2022-04-23 08:00] VITALS: O2SAT 95
[2022-04-23] MEDS: ADVAIR HFA 230/21MCG INHALER INH SCH ×2 (08:00→21:13)
[2022-04-23 12:06] LABS: BASO % 0.2 % (0.0-1.0); EOS % 0.1 % (0.0-3.0); HEMATOCRIT 47.2 % (42.0-52.0); HEMOGLOBIN 13.4 g/dl (13.5-17.5); LYMPH # 0.8 10^3/uL (1.5-5.0); LYMPH % 8.1 % (24.0-44.0); MEAN CORPUSCULAR HEMOGLOBIN 21.4 pg (27.0-33.0); MEAN CORPUSCULAR HGB CONC 28.4 g/dl (32.0-36.5); MEAN CORPUSCULAR VOLUME 75.4 fl (80.0-96.0); MONO # 0.2 10^3/uL (0.0-0.8); MONO % 1.6 % (2.0-8.0); NEUTROPHILS # 8.7 10^3/uL (1.5-8.5); NEUTROPHILS % 89.3 % (36.0-66.0); PLATELET COUNT, AUTOMATED 222 10^3/uL (150-450); RED BLOOD COUNT 6.26 10^6/uL (4.30-6.10); WHITE BLOOD COUNT 9.8 10^3/uL (4.0-10.0)
[2022-04-23] MEDS: methylPREDNISolone 40MG 1ML VIAL IV SCH ×3 (12:15→23:33)
[2022-04-23] MEDS: METHADONE 10MG TAB PO SCH (12:15)
[2022-04-23] MEDS: PANTOPRAZOLE 40MG TAB (PROTONIX) PO SCH (12:15)
[2022-04-23 13:27] VITALS: BP 146/98
[2022-04-23 13:45] VITALS: O2SAT 93
[2022-04-23] MEDS: busPIRone 10 MG TAB PO SCH ×3 (13:54→20:40)
[2022-04-23 14:33] VITALS: O2SAT 91
[2022-04-23 20:35] VITALS: O2SAT 93
[2022-04-23] MEDS: traZODone 50 MG TAB PO SCH (20:40)
[2022-04-23 20:42] VITALS: BP 120/83
[2022-04-24] MEDS: IPRATROPIUM 0.5MG/ALBUTEROL 2.5MG INH SOL UD 3ML (DUONEB) NEB SCH ×4 (02:00→20:00)
[2022-04-24 06:00] VITALS: BP 141/80
[2022-04-24] MEDS: methylPREDNISolone 40MG 1ML VIAL IV SCH ×3 (06:17→20:53)
[2022-04-24] MEDS: HEPARIN SOD (PORCINE) 5000UNITS/ML 1ML VIAL/SYRINGE SC SCH ×3 (06:17→20:53)
[2022-04-24 06:32] LABS: BASO % 0.1 % (0.0-1.0); HEMATOCRIT 46.5 % (42.0-52.0); HEMOGLOBIN 13.1 g/dl (13.5-17.5); LYMPH # 0.8 10^3/uL (1.5-5.0); LYMPH % 6.8 % (24.0-44.0); MEAN CORPUSCULAR HEMOGLOBIN 21.3 pg (27.0-33.0); MEAN CORPUSCULAR HGB CONC 28.2 g/dl (32.0-36.5); MEAN CORPUSCULAR VOLUME 75.7 fl (80.0-96.0); MONO # 0.4 10^3/uL (0.0-0.8); MONO % 3.6 % (2.0-8.0); NEUTROPHILS # 10.6 10^3/uL (1.5-8.5); PLATELET COUNT, AUTOMATED 203 10^3/uL (150-450); RED BLOOD COUNT 6.14 10^6/uL (4.30-6.10)
[2022-04-24 06:56] LABS: BLOOD UREA NITROGEN 16 MG/DL (7-18); CALCIUM LEVEL 9.2 MG/DL (8.5-10.1); CARBON DIOXIDE LEVEL 29 MEQ/L (21-32); CHLORIDE LEVEL 102 MEQ/L (98-107); CREATININE FOR GFR 1.08 MG/DL (0.70-1.30); GLOMERULAR FILTRATION RATE > 60.0 (>56); GLUCOSE, FASTING 121 MG/DL (70-100); POTASSIUM SERUM 4.9 MEQ/L (3.5-5.1); SODIUM LEVEL 137 MEQ/L (136-145)
[2022-04-24] MEDS: ADVAIR HFA 230/21MCG INHALER INH SCH ×2 (07:37→20:00)
[2022-04-24] MEDS: PANTOPRAZOLE 40MG TAB (PROTONIX) PO SCH (08:32)
[2022-04-24] MEDS: busPIRone 10 MG TAB PO SCH ×4 (08:32→20:52)
[2022-04-24] MEDS: METHADONE 10MG TAB PO SCH (08:32)
[2022-04-24 14:00] VITALS: BP 142/90
[2022-04-24 19:48] VITALS: BP 137/86
[2022-04-24] MEDS: traZODone 50 MG TAB PO SCH (20:53)
[2022-04-24 23:44] VITALS: O2SAT 94
[2022-04-25] MEDS: IPRATROPIUM 0.5MG/ALBUTEROL 2.5MG INH SOL UD 3ML (DUONEB) NEB SCH ×3 (01:28→13:25)
[2022-04-25] MEDS: methylPREDNISolone 40MG 1ML VIAL IV SCH (05:24)
[2022-04-25] MEDS: HEPARIN SOD (PORCINE) 5000UNITS/ML 1ML VIAL/SYRINGE SC SCH ×2 (05:25→13:04)
[2022-04-25 05:49] LABS: BASO % 0.1 % (0.0-1.0); HEMATOCRIT 50.3 % (42.0-52.0); HEMOGLOBIN 14.1 g/dl (13.5-17.5); LYMPH % 5.5 % (24.0-44.0); MEAN CORPUSCULAR HEMOGLOBIN 21.1 pg (27.0-33.0); MEAN CORPUSCULAR VOLUME 75.3 fl (80.0-96.0); MONO # 0.7 10^3/uL (0.0-0.8); MONO % 3.7 % (2.0-8.0); NEUTROPHILS # 17.1 10^3/uL (1.5-8.5); NEUTROPHILS % 90.2 % (36.0-66.0); PLATELET COUNT, AUTOMATED 205 10^3/uL (150-450); RED BLOOD COUNT 6.68 10^6/uL (4.30-6.10)
[2022-04-25 05:51] VITALS: BP 141/80
[2022-04-25 06:26] LABS: BLOOD UREA NITROGEN 21 MG/DL (7-18); CALCIUM LEVEL 9.5 MG/DL (8.5-10.1); CARBON DIOXIDE LEVEL 31 MEQ/L (21-32); CHLORIDE LEVEL 101 MEQ/L (98-107); GLOMERULAR FILTRATION RATE > 60.0 (>56); GLUCOSE, FASTING 95 MG/DL (70-100); POTASSIUM SERUM 4.9 MEQ/L (3.5-5.1); SODIUM LEVEL 135 MEQ/L (136-145)
[2022-04-25] MEDS: ADVAIR HFA 230/21MCG INHALER INH SCH (07:46)
[2022-04-25] MEDS: busPIRone 10 MG TAB PO SCH ×2 (08:48→13:04)
[2022-04-25] MEDS: METHADONE 10MG TAB PO SCH (08:48)
[2022-04-25] MEDS: PANTOPRAZOLE 40MG TAB (PROTONIX) PO SCH (08:48)
[2022-04-25 14:00] VITALS: BP 137/78
[2022-04-25] MEDS ORDERED: PRED20TA PO (14:08)
[2022-04-25] MEDS ORDERED: predniSONE 10 MG TAB PO ONE (16:00)
[2022-04-26] MEDS ORDERED: predniSONE 20 MG TAB PO SCH (09:00)
== END 2022-04-25 15:45 | disposition home or self-care (01) | DRG 196 ==
LOC: M ED 18:33 → M ED INP 18:34 → ENRESERV 04-23 11:24 → M MSPAV 04-23 13:21 → OBSVTOIN 04-23 16:27
PROVIDERS: ADMIT Internal Medicine; ATTEND Internal Medicine
DX: J84.82 Adult pulmonary Langerhans cell histiocytosis (principal); J96.21 Acute and chronic respiratory failure with hypoxia; J96.22 Acute and chronic respiratory failure with hypercapnia; F11.20 Opioid dependence, uncomplicated; N17.9 Acute kidney failure, unspecified; E87.21 Acute metabolic acidosis; I12.9 Hypertensive chronic kidney disease with stage 1 through stage 4 chronic kidney disease, or unspecified chronic kidney disease; N18.9 Chronic kidney disease, unspecified; I27.20 Pulmonary hypertension, unspecified; J47.9 Bronchiectasis, uncomplicated; F31.9 Bipolar disorder, unspecified; K21.9 Gastro-esophageal reflux disease without esophagitis; J84.10 Pulmonary fibrosis, unspecified; G47.33 Obstructive sleep apnea (adult) (pediatric); D72.829 Elevated white blood cell count, unspecified; Z79.899 Other long term (current) drug therapy; Z87.891 Personal history of nicotine dependence; F41.9 Anxiety disorder, unspecified; M19.90 Unspecified osteoarthritis, unspecified site

== ENCOUNTER → 2022-05-02 | Outpatient (CLI) | payer MEDICARE, MEDICAID ==
[~2022-05-02] MED LIST changes: +ADV500INH INH; +ALBU8.5H INH; +BUSP10TA PO; +NICO4GUM42 MT; +PRED10TA2 PO; +TRAZ-252 PO
[2022-05-02 13:02] LABS: HEMATOCRIT 50.6 % (42.0-52.0); HEMOGLOBIN 14.4 g/dl (13.5-17.5); MEAN CORPUSCULAR HEMOGLOBIN 21.5 pg (27.0-33.0); MEAN CORPUSCULAR HGB CONC 28.5 g/dl (32.0-36.5); MEAN CORPUSCULAR VOLUME 75.5 fl (80.0-96.0); PLATELET COUNT, AUTOMATED 226 10^3/uL (150-450); WHITE BLOOD COUNT 15.8 10^3/uL (4.0-10.0)
== END ==
LOC: M LAB 12:31
PROVIDERS: ATTEND Internal Medicine
DX: D72.829 Elevated white blood cell count, unspecified (principal)

== ENCOUNTER → 2022-07-15 | Outpatient (CLI) | payer MEDICARE, MEDICAID | LOC: M RAD 13:45 | PROVIDERS: ATTEND Internal Medicine Pulmonary Disease | DX: C96.6 Unifocal Langerhans-cell histiocytosis (principal); J84.9 Interstitial pulmonary disease, unspecified ==

== ENCOUNTER 2022-07-27 16:04 | Inpatient (IN) | payer MEDICARE, MEDICAID ==
[~2022-07-27] VITALS: Ht 185.4 cm; Wt 108.6 kg
[~2022-07-27 16:04] MED LIST changes: +IPRATROPIUM 0.5MG/ALBUTEROL 2.5MG INH SOL UD 3ML (DUONEB) NEB SCH
[2022-07-27] MEDS ORDERED: methylPREDNISolone 125MG 2ML VIAL IV ONE (16:10)
[2022-07-27] MEDS ORDERED: IPRATROPIUM 0.5MG/ALBUTEROL 2.5MG INH SOL UD 3ML (DUONEB) NEB PRN (16:10)
[2022-07-27 16:53] LABS: BASO % 0.2 % (0.0-1.0); EOS % 0.1 % (0.0-3.0); HEMATOCRIT 51.4 % (42.0-52.0); HEMOGLOBIN 14.3 g/dl (13.5-17.5); LYMPH # 0.9 10^3/uL (1.5-5.0); MEAN CORPUSCULAR HEMOGLOBIN 21.4 pg (27.0-33.0); MEAN CORPUSCULAR HGB CONC 27.8 g/dl (32.0-36.5); MEAN CORPUSCULAR VOLUME 76.8 fl (80.0-96.0); MONO # 0.7 10^3/uL (0.0-0.8); NEUTROPHILS # 12.5 10^3/uL (1.5-8.5); NEUTROPHILS % 87.1 % (36.0-66.0); PLATELET COUNT, AUTOMATED 202 10^3/uL (150-450); RED BLOOD COUNT 6.69 10^6/uL (4.30-6.10); WHITE BLOOD COUNT 14.4 10^3/uL (4.0-10.0)
[2022-07-27 17:01] LABS: ALBUMIN 3.5 G/DL (3.2-5.2); ALKALINE PHOSPHATASE 75 U/L (46-116); ALT/SGPT 27 U/L (7.0-40); AST/SGOT 26 U/L (<34); BILIRUBIN,DIRECT 0.2 MG/DL (<0.4); BILIRUBIN,TOTAL 0.6 MG/DL (0.3-1.2); BLOOD UREA NITROGEN 22 MG/DL (9-23); CALCIUM LEVEL 8.2 MG/DL (8.5-10.1); CARBON DIOXIDE LEVEL 29 MMOL/L (20-31); CHLORIDE LEVEL 100 MMOL/L (98-107); CPK CREATINE PHOSPHOKINASE 85 U/L (46-171); CREATININE FOR GFR 1.61 MG/DL (0.70-1.30); GLOMERULAR FILTRATION RATE 48.2 (>56); GLUCOSE, FASTING 150 MG/DL (60-100); POTASSIUM SERUM 4.8 MMOL/L (3.5-5.1); SODIUM LEVEL 137 MMOL/L (136-145)
[2022-07-27] MEDS ORDERED: ISOVUE-370 76% 100ML VIAL As Ordered ONE (17:02)
[2022-07-27 17:04] LABS: THYROID STIMULATING HORMONE 2.008 uIU/ML (0.55-4.78)
[2022-07-27 18:28] LABS: CPK CREATINE PHOSPHOKINASE 79 U/L (46-171)
[2022-07-27] MEDS ORDERED: ACETAMINOPHEN TAB 650MG DOSE (2X325MG) PO PRN (19:50)
[2022-07-27] MEDS ORDERED: GI COCKTAIL 50ML BTL(HYOSCYAMINE/MAALOX/LIDOCAINE VISCOUS)(1:3:1) PO ONE (20:35)
[2022-07-27] MEDS ORDERED: BUSP30TA PO (21:19)
[2022-07-27] MEDS ORDERED: PRED20TA PO (21:24)
[2022-07-27] MEDS ORDERED: PARO20TA4 PO (21:27)
[2022-07-27] MEDS ORDERED: HOME MED LIST COMPLETE! XX SCH (21:30)
[2022-07-27] MEDS ORDERED: guaiFENesin SYRUP 200MG 10ML UDC PO PRN (21:55)
[2022-07-27] MEDS: busPIRone 10 MG TAB PO SCH (22:38)
[2022-07-27] MEDS: DOXYCYCLINE HYCLATE 100MG TABLET PO SCH (22:38)
[2022-07-27] MEDS: methylPREDNISolone 40MG 1ML VIAL IV SCH (22:46)
[2022-07-28] MEDS: IPRATROPIUM 0.5MG/ALBUTEROL 2.5MG INH SOL UD 3ML (DUONEB) NEB SCH ×2 (01:46→07:34)
[2022-07-28 05:47] VITALS: BP 116/64
[2022-07-28] MEDS ORDERED: HEPARIN SOD (PORCINE) 5000UNITS/ML 1ML VIAL/SYRINGE SQ SCH (06:00)
[2022-07-28] MEDS: methylPREDNISolone 40MG 1ML VIAL IV SCH (06:34)
[2022-07-28 07:00] LABS: HEMATOCRIT 48.8 % (42.0-52.0); HEMOGLOBIN 13.6 g/dl (13.5-17.5); MEAN CORPUSCULAR HEMOGLOBIN 21.8 pg (27.0-33.0); MEAN CORPUSCULAR HGB CONC 27.9 g/dl (32.0-36.5); MEAN CORPUSCULAR VOLUME 78.1 fl (80.0-96.0); PLATELET COUNT, AUTOMATED 166 10^3/uL (150-450); RED BLOOD COUNT 6.25 10^6/uL (4.30-6.10); WHITE BLOOD COUNT 10.9 10^3/uL (4.0-10.0)
[2022-07-28 07:32] VITALS: BP 129/87
[2022-07-28 07:46] LABS: ALBUMIN 3.5 G/DL (3.2-5.2); ALKALINE PHOSPHATASE 69 U/L (46-116); ALT/SGPT 26 U/L (7.0-40); AST/SGOT 22 U/L (<34); BILIRUBIN,TOTAL 0.5 MG/DL (0.3-1.2); BLOOD UREA NITROGEN 17 MG/DL (9-23); CALCIUM LEVEL 8.8 MG/DL (8.5-10.1); CARBON DIOXIDE LEVEL 34 MMOL/L (20-31); CHLORIDE LEVEL 98 MMOL/L (98-107); GLOMERULAR FILTRATION RATE > 60.0 (>56); GLUCOSE, FASTING 120 MG/DL (60-100); POTASSIUM SERUM 5.4 MMOL/L (3.5-5.1); SODIUM LEVEL 137 MMOL/L (136-145); TOTAL PROTEIN 6.5 G/DL (5.7-8.2)
[2022-07-28 08:13] VITALS: O2SAT 91
[2022-07-28] MEDS: busPIRone 10 MG TAB PO SCH (08:33)
[2022-07-28] MEDS: DOXYCYCLINE HYCLATE 100MG TABLET PO SCH (08:33)
[2022-07-28] MEDS ORDERED: PANTOPRAZOLE 40MG TAB (PROTONIX) PO SCH (09:00)
[2022-07-28] MEDS ORDERED: ENOXAPARIN 40MG/0.4ML SYRINGE (J1650 PER 10MG) SC SCH (09:00)
[2022-07-28] MEDS ORDERED: MULTIVITAMINS/MINERALS THERAP 1 TAB PO SCH (09:00)
[2022-07-28] MEDS ORDERED: METHADONE 10MG TAB PO SCH (09:00)
[2022-07-28] MEDS ORDERED: DOXY100T PO (10:29)
[2022-07-28] MEDS ORDERED: traZODone 50 MG TAB PO SCH (21:00)
[2022-07-28] MEDS ORDERED: PARoxetine 20MG TABLET PO SCH (21:00)
[2022-07-29] MEDS ORDERED: predniSONE 20 MG TAB PO SCH (09:00)
== END 2022-07-28 11:30 | disposition home or self-care (01) | DRG 196 ==
LOC: M ED 18:51 → M ED INP 21:18
PROVIDERS: ADMIT Family Medicine; ATTEND Student in an Organized Health Care Education/Training Program
DX: J84.82 Adult pulmonary Langerhans cell histiocytosis (principal); J96.21 Acute and chronic respiratory failure with hypoxia; N17.9 Acute kidney failure, unspecified; F11.20 Opioid dependence, uncomplicated; I12.9 Hypertensive chronic kidney disease with stage 1 through stage 4 chronic kidney disease, or unspecified chronic kidney disease; N18.9 Chronic kidney disease, unspecified; I27.20 Pulmonary hypertension, unspecified; J84.10 Pulmonary fibrosis, unspecified; Z79.52 Long term (current) use of systemic steroids; Z99.81 Dependence on supplemental oxygen; Z79.899 Other long term (current) drug therapy; Z87.891 Personal history of nicotine dependence

== ENCOUNTER → 2022-08-17 | Outpatient (REF) | payer MEDICARE, MEDICAID ==
[~2022-08-17] MED LIST changes: -IPRATROPIUM 0.5MG/ALBUTEROL 2.5MG INH SOL UD 3ML (DUONEB) NEB SCH; +PARO20TA4 PO
[2022-08-17 12:17] LABS: THYROID STIMULATING HORMONE 1.816 uIU/ML (0.55-4.78)
[2022-08-17 12:25] LABS: ALBUMIN 4.1 G/DL (3.2-5.2); ALKALINE PHOSPHATASE 71 U/L (46-116); ALT/SGPT 29 U/L (7.0-40); AST/SGOT 25 U/L (<34); BILIRUBIN,TOTAL 0.6 MG/DL (0.3-1.2); BLOOD UREA NITROGEN 14 MG/DL (9-23); CALCIUM LEVEL 9.5 MG/DL (8.5-10.1); CARBON DIOXIDE LEVEL 32 MMOL/L (20-31); CHLORIDE LEVEL 97 MMOL/L (98-107); CHOLESTEROL LEVEL 163 MG/DL (<200); CHOLESTEROL RISK RATIO 2.93 (<5); CREATININE FOR GFR 1.09 MG/DL (0.70-1.30); GLOMERULAR FILTRATION RATE > 60.0 (>56); GLUCOSE, FASTING 79 MG/DL (60-100); HDL CHOLESTEROL 55.6 MG/DL (>40); LDL CHOLESTEROL 89.4 MG/DL (<100); NON-HDL-C 107 MG/DL; POTASSIUM SERUM 4.7 MMOL/L (3.5-5.1); SODIUM LEVEL 137 MMOL/L (136-145); TOTAL PROTEIN 7.3 G/DL (5.7-8.2); TRIGLYCERIDES LEVEL 90 MG/DL (<150)
== END ==
LOC: M LAB REF 11:28
PROVIDERS: ATTEND Family Medicine Addiction Medicine
DX: I10 Essential (primary) hypertension (principal)

== ENCOUNTER → 2022-10-20 | Outpatient (CLI) | payer MEDICARE, MEDICAID ==
[~2022-10-20] MED LIST changes: +BACTDSTA PO
== END ==
LOC: M LAB 09:43
PROVIDERS: ATTEND Family Medicine
DX: F11.20 Opioid dependence, uncomplicated (principal)
CPT/HCPCS: 36415; G0480

== ENCOUNTER 2022-10-21 17:13 | Inpatient (IN) | payer MEDICARE, MEDICAID ==
[~2022-10-21] VITALS: Ht 182.9 cm; Wt 101.9 kg
[~2022-10-21 17:13] MED LIST changes: -BACTDSTA PO
[2022-10-21] MEDS ORDERED: IPRATROPIUM 0.5MG/ALBUTEROL 2.5MG INH SOL UD 3ML (DUONEB) NEB ONE (17:35)
[2022-10-21] MEDS ORDERED: ALBUTEROL SULFATE 2.5MG/0.5ML INH NEB SOLN INH ONE (17:35)
[2022-10-21 17:53] LABS: ABG HCO3 25.3 MEQ/L (22.0-26.0); ABG O2 SATURATION 87.3 % (95.0-99.0); ABG PARTIAL PRESSURE CO2 43.5 mmHg (35.0-45.0); ABG PARTIAL PRESSURE O2 54.3 mmHg (75.0-100.0); ABG STANDARD HCO3 24.2 MEQ/L (22.0-26.0); ABG TOTAL CO2 26.6 MEQ/L (22.0-29.0); ABG pH (ARTERIAL) 7.382 UNITS (7.350-7.450)
[2022-10-21 18:11] LABS: BASO # 0.1 10^3/uL (0.0-0.2); BASO % 0.4 % (0.0-1.0); EOS # 0.1 10^3/uL (0.0-0.5); EOS % 0.7 % (0.0-3.0); HEMATOCRIT 49.6 % (42.0-52.0); HEMOGLOBIN 14.6 g/dl (13.5-17.5); LYMPH # 2.1 10^3/uL (1.5-5.0); LYMPH % 17.4 % (24.0-44.0); MEAN CORPUSCULAR HEMOGLOBIN 23.2 pg (27.0-33.0); MEAN CORPUSCULAR HGB CONC 29.4 g/dl (32.0-36.5); MONO # 0.8 10^3/uL (0.0-0.8); NEUTROPHILS # 8.7 10^3/uL (1.5-8.5); NEUTROPHILS % 73.4 % (36.0-66.0); PLATELET COUNT, AUTOMATED 213 10^3/uL (150-450); RED BLOOD COUNT 6.28 10^6/uL (4.30-6.10); WHITE BLOOD COUNT 11.8 10^3/uL (4.0-10.0)
[2022-10-21 18:38] LABS: CK-MB VALUE MASS < 1.0 NG/ML (<3.6)
[2022-10-21 18:41] LABS: ALBUMIN 3.4 G/DL (3.2-5.2); ALKALINE PHOSPHATASE 89 U/L (46-116); ALT/SGPT 39 U/L (7.0-40); AST/SGOT 37 U/L (<34); BILIRUBIN,DIRECT 0.2 MG/DL (<0.4); BILIRUBIN,TOTAL 0.4 MG/DL (0.3-1.2); BLOOD UREA NITROGEN 9 MG/DL (9-23); CALCIUM LEVEL 8.2 MG/DL (8.5-10.1); CARBON DIOXIDE LEVEL 27 MMOL/L (20-31); CHLORIDE LEVEL 98 MMOL/L (98-107); CREATININE FOR GFR 1.24 MG/DL (0.70-1.30); GLOMERULAR FILTRATION RATE > 60.0 (>56); GLUCOSE, FASTING 144 MG/DL (60-100); POTASSIUM SERUM 4.2 MMOL/L (3.5-5.1); SODIUM LEVEL 132 MMOL/L (136-145); THYROXINE (T4) 10.7 UG/DL (4.5-10.9); TOTAL PROTEIN 6.6 G/DL (5.7-8.2)
[2022-10-21 18:42] LABS: THYROID STIMULATING HORMONE 1.819 uIU/ML (0.55-4.78)
[2022-10-21 18:44] LABS: CPK CREATINE PHOSPHOKINASE 51 U/L (46-171); MB/CK RELATIVE INDEX 1.96 (< OR =4)
[2022-10-21 19:15] LABS: CK-MB VALUE MASS < 1.0 NG/ML (<3.6)
[2022-10-21 19:19] LABS: CPK CREATINE PHOSPHOKINASE 59 U/L (46-171); MB/CK RELATIVE INDEX 1.69 (< OR =4)
[2022-10-21] MEDS ORDERED: ISOVUE-370 76% 100ML VIAL As Ordered ONE (19:26)
[2022-10-21] MEDS ORDERED: HOME MED LIST COMPLETE! XX SCH (20:45)
[2022-10-21] MEDS ORDERED: methylPREDNISolone 125MG 2ML VIAL IV ONE (21:30)
[2022-10-21] MEDS ORDERED: GLUCAGON INJ 1MG VIAL SC PRN (22:50)
[2022-10-21] MEDS ORDERED: ALBUTEROL SULFATE 2.5MG/0.5ML INH NEB SOLN NEB PRN (22:50)
[2022-10-21] MEDS ORDERED: DEXTROSE 50% 50ML SYRINGE IV PRN (22:50)
[2022-10-21] MEDS ORDERED: GLUCOSE 4GM CHEW TABLET PO PRN (22:50)
[2022-10-21] MEDS ORDERED: cefTRIAXone SOD 1 GM in D5W MINI-BAG PLUS 50 ML IV SCH (23:00)
[2022-10-21] MEDS ORDERED: BACTDSTA PO (23:29)
[2022-10-21 23:45] VITALS: BP 140/80
[2022-10-21] MEDS: DOXYCYCLINE HYCLATE 100MG TABLET PO SCH (23:48)
[2022-10-22] VITALS (22 sets, daily range): BP systolic 123–162; BP diastolic 71–91; O2SAT 76–96
[2022-10-22] MEDS: IPRATROPIUM 0.02% SOLN 0.5MG 2.5ML NEB NEB SCH ×5 (01:43→20:00)
[2022-10-22] MEDS: ALBUTEROL SULFATE 2.5MG/0.5ML INH NEB SOLN NEB SCH ×5 (01:44→20:00)
[2022-10-22 04:46] LABS: HEMATOCRIT 50.6 % (42.0-52.0); HEMOGLOBIN 14.7 g/dl (13.5-17.5); MEAN CORPUSCULAR HEMOGLOBIN 23.3 pg (27.0-33.0); MEAN CORPUSCULAR HGB CONC 29.1 g/dl (32.0-36.5); MEAN CORPUSCULAR VOLUME 80.3 fl (80.0-96.0); PLATELET COUNT, AUTOMATED 213 10^3/uL (150-450); WHITE BLOOD COUNT 4.4 10^3/uL (4.0-10.0)
[2022-10-22 05:10] LABS: BLOOD UREA NITROGEN 10 MG/DL (9-23); CALCIUM LEVEL 8.5 MG/DL (8.5-10.1); CARBON DIOXIDE LEVEL 27 MMOL/L (20-31); CHLORIDE LEVEL 102 MMOL/L (98-107); CREATININE FOR GFR 1.08 MG/DL (0.70-1.30); GLOMERULAR FILTRATION RATE > 60.0 (>56); GLUCOSE, FASTING 345 MG/DL (60-100); MAGNESIUM LEVEL 1.4 MG/DL (1.8-2.4); POTASSIUM SERUM 4.5 MMOL/L (3.5-5.1); SODIUM LEVEL 137 MMOL/L (136-145)
[2022-10-22] MEDS ORDERED: MAG SULF 1GM/100ML (MAG RUN) 1 GM in IV 1 EA IV ONE (05:20)
[2022-10-22] MEDS: HEPARIN SOD (PORCINE) 5000UNITS/ML 1ML VIAL/SYRINGE SC SCH ×3 (05:29→21:07)
[2022-10-22] MEDS: methylPREDNISolone 125MG 2ML VIAL IV SCH ×3 (05:29→21:07)
[2022-10-22] MEDS: ADVAIR HFA 230/21MCG INHALER INH SCH ×2 (07:41→20:00)
[2022-10-22] MEDS: INSULIN LISPRO (NovoLOG) PER UNIT SC SCH ×4 (07:52→20:57)
[2022-10-22] MEDS: busPIRone 10 MG TAB PO SCH ×4 (08:05→21:08)
[2022-10-22] MEDS: DOXYCYCLINE HYCLATE 100MG TABLET PO SCH (08:05)
[2022-10-22] MEDS: PANTOPRAZOLE 40MG TAB (PROTONIX) PO SCH (08:05)
[2022-10-22] MEDS: METHADONE 10MG TAB PO SCH (10:51)
[2022-10-22 11:57] LABS: HEMOGLOBIN A1c 6.3 % (4.0-6.0)
[2022-10-22 17:21] LABS: BARBITURATES URINE NEGATIVE (NEGATIVE); COCAINE METABOLITE URINE NEGATIVE (NEGATIVE); OPIATES URINE NEGATIVE (NEGATIVE); PHENCYCLIDINE URINE NEGATIVE (NEGATIVE)
[2022-10-22 17:22] LABS: AMPHETAMINES LEVEL URINE NEGATIVE (NEGATIVE); BENZODIAZEPINES URINE NEGATIVE (NEGATIVE); CANNABINOIDS URINE NEGATIVE (NEGATIVE)
[2022-10-22 17:25] LABS: METHADONE URINE POSITIVE (NEGATIVE)
[2022-10-22] MEDS: PARoxetine 20MG TABLET PO SCH (21:08)
[2022-10-23] VITALS (24 sets, daily range): BP systolic 132–155; BP diastolic 74–92; O2SAT 84–96
[2022-10-23] MEDS: ALBUTEROL SULFATE 2.5MG/0.5ML INH NEB SOLN NEB SCH ×2 (02:00→07:54)
[2022-10-23] MEDS: IPRATROPIUM 0.02% SOLN 0.5MG 2.5ML NEB NEB SCH ×2 (02:00→07:54)
[2022-10-23] MEDS: methylPREDNISolone 125MG 2ML VIAL IV SCH ×3 (06:06→21:26)
[2022-10-23] MEDS: HEPARIN SOD (PORCINE) 5000UNITS/ML 1ML VIAL/SYRINGE SC SCH ×3 (06:06→21:26)
[2022-10-23] MEDS: ADVAIR HFA 230/21MCG INHALER INH SCH ×2 (07:53→19:27)
[2022-10-23] MEDS: METHADONE 10MG TAB PO SCH (08:10)
[2022-10-23] MEDS: busPIRone 10 MG TAB PO SCH ×4 (08:10→21:26)
[2022-10-23] MEDS: PANTOPRAZOLE 40MG TAB (PROTONIX) PO SCH (08:10)
[2022-10-23] MEDS: INSULIN LISPRO (NovoLOG) PER UNIT SC SCH ×4 (08:11→21:00)
[2022-10-23 08:12] LABS: BASO % 0.1 % (0.0-1.0); HEMATOCRIT 51.8 % (42.0-52.0); HEMOGLOBIN 14.7 g/dl (13.5-17.5); LYMPH % 4.1 % (24.0-44.0); MEAN CORPUSCULAR HGB CONC 28.4 g/dl (32.0-36.5); MEAN CORPUSCULAR VOLUME 81.2 fl (80.0-96.0); MONO # 0.5 10^3/uL (0.0-0.8); MONO % 2.3 % (2.0-8.0); NEUTROPHILS # 21.9 10^3/uL (1.5-8.5); PLATELET COUNT, AUTOMATED 214 10^3/uL (150-450); RED BLOOD COUNT 6.38 10^6/uL (4.30-6.10); WHITE BLOOD COUNT 23.5 10^3/uL (4.0-10.0)
[2022-10-23 08:38] LABS: ALBUMIN 3.2 G/DL (3.2-5.2); ALKALINE PHOSPHATASE 81 U/L (46-116); ALT/SGPT 35 U/L (7.0-40); AST/SGOT 18 U/L (<34); BILIRUBIN,TOTAL 0.3 MG/DL (0.3-1.2); BLOOD UREA NITROGEN 13 MG/DL (9-23); CALCIUM LEVEL 9.1 MG/DL (8.5-10.1); CARBON DIOXIDE LEVEL 29 MMOL/L (20-31); CHLORIDE LEVEL 102 MMOL/L (98-107); CREATININE FOR GFR 0.91 MG/DL (0.70-1.30); GLOMERULAR FILTRATION RATE > 60.0 (>56); GLUCOSE, FASTING 126 MG/DL (60-100); MAGNESIUM LEVEL 1.7 MG/DL (1.8-2.4); POTASSIUM SERUM 4.5 MMOL/L (3.5-5.1); SODIUM LEVEL 140 MMOL/L (136-145); TOTAL PROTEIN 6.7 G/DL (5.7-8.2)
[2022-10-23] MEDS ORDERED: BACTRIM 160MG/800MG DS TAB PO SCH (09:00)
[2022-10-23] MEDS ORDERED: ALBUTEROL SULFATE 2.5MG/0.5ML INH NEB SOLN NEB PRN (10:00)
[2022-10-23] MEDS ORDERED: IPRATROPIUM 0.02% SOLN 0.5MG 2.5ML NEB NEB PRN (10:00)
[2022-10-23] MEDS ORDERED: MAGNESIUM OXIDE 400MG TAB (MAG-OX) PO ONE (10:10)
[2022-10-23] MEDS ORDERED: NICOTINE POLACRILEX 2 MG GUM PO PRN (14:50)
[2022-10-23] MEDS: PARoxetine 20MG TABLET PO SCH (21:26)
[2022-10-24 03:45] VITALS: BP 153/81
[2022-10-24 06:08] LABS: BASO % 0.1 % (0.0-1.0); HEMATOCRIT 50.7 % (42.0-52.0); HEMOGLOBIN 14.6 g/dl (13.5-17.5); LYMPH % 4.9 % (24.0-44.0); MEAN CORPUSCULAR HEMOGLOBIN 23.1 pg (27.0-33.0); MEAN CORPUSCULAR HGB CONC 28.8 g/dl (32.0-36.5); MEAN CORPUSCULAR VOLUME 80.2 fl (80.0-96.0); MONO # 0.5 10^3/uL (0.0-0.8); MONO % 2.3 % (2.0-8.0); NEUTROPHILS # 18.4 10^3/uL (1.5-8.5); NEUTROPHILS % 92.2 % (36.0-66.0); PLATELET COUNT, AUTOMATED 224 10^3/uL (150-450); RED BLOOD COUNT 6.32 10^6/uL (4.30-6.10)
[2022-10-24] MEDS: methylPREDNISolone 125MG 2ML VIAL IV SCH ×2 (06:17→14:17)
[2022-10-24] MEDS: HEPARIN SOD (PORCINE) 5000UNITS/ML 1ML VIAL/SYRINGE SC SCH ×2 (06:17→14:00)
[2022-10-24 06:29] LABS: ALBUMIN 3.2 G/DL (3.2-5.2); ALKALINE PHOSPHATASE 77 U/L (46-116); ALT/SGPT 32 U/L (7.0-40); AST/SGOT 18 U/L (<34); BILIRUBIN,TOTAL 0.3 MG/DL (0.3-1.2); BLOOD UREA NITROGEN 18 MG/DL (9-23); CALCIUM LEVEL 9.1 MG/DL (8.5-10.1); CARBON DIOXIDE LEVEL 30 MMOL/L (20-31); CHLORIDE LEVEL 103 MMOL/L (98-107); CREATININE FOR GFR 0.94 MG/DL (0.70-1.30); GLOMERULAR FILTRATION RATE > 60.0 (>56); GLUCOSE, FASTING 93 MG/DL (60-100); MAGNESIUM LEVEL 1.9 MG/DL (1.8-2.4); POTASSIUM SERUM 4.4 MMOL/L (3.5-5.1); SODIUM LEVEL 140 MMOL/L (136-145); TOTAL PROTEIN 6.7 G/DL (5.7-8.2)
[2022-10-24] MEDS: INSULIN LISPRO (NovoLOG) PER UNIT SC SCH ×2 (07:10→12:00)
[2022-10-24 07:33] VITALS: BP 162/78
[2022-10-24] MEDS: ADVAIR HFA 230/21MCG INHALER INH SCH (08:05)
[2022-10-24] MEDS: METHADONE 10MG TAB PO SCH (08:12)
[2022-10-24] MEDS: PANTOPRAZOLE 40MG TAB (PROTONIX) PO SCH (08:12)
[2022-10-24] MEDS: busPIRone 10 MG TAB PO SCH ×2 (08:12→12:56)
[2022-10-24 11:56] VITALS: BP 139/74
[2022-10-24] MEDS ORDERED: VITA200012 PO (13:02)
[2022-10-24] MEDS ORDERED: PRED20TA PO (13:02)
== END 2022-10-24 14:44 | disposition home or self-care (01) | DRG 189 ==
LOC: EDBD 17:13 → M ED 17:13 → M ED INP 21:57 → ENRESERV 23:02 → M ICU 23:35 → M PCU 10-22 15:41
PROVIDERS: ADMIT Internal Medicine; ATTEND Family Medicine
DX: J96.21 Acute and chronic respiratory failure with hypoxia (principal); J84.82 Adult pulmonary Langerhans cell histiocytosis; F11.20 Opioid dependence, uncomplicated; E87.1 Hypo-osmolality and hyponatremia; F19.20 Other psychoactive substance dependence, uncomplicated; K21.9 Gastro-esophageal reflux disease without esophagitis; Z99.81 Dependence on supplemental oxygen; R04.0 Epistaxis; F41.9 Anxiety disorder, unspecified; Z79.52 Long term (current) use of systemic steroids; F32.A Depression, unspecified; R73.9 Hyperglycemia, unspecified; Z79.899 Other long term (current) drug therapy; Z87.891 Personal history of nicotine dependence

== ENCOUNTER → 2022-10-21 | Outpatient (CLI) | payer MEDICARE, MEDICAID | LOC: M LAB 09:44 | PROVIDERS: ATTEND Family Medicine | DX: F11.20 Opioid dependence, uncomplicated (principal) ==

== ENCOUNTER 2022-10-29 17:36 | Inpatient (IN) | payer MEDICARE, MEDICAID ==
[~2022-10-29] VITALS: Ht 182.9 cm; Wt 105.5 kg
[~2022-10-29 17:36] MED LIST changes: +BACTDSTA PO; +VITA200012 PO
[2022-10-29] MEDS ORDERED: ALBUTEROL SULFATE 2.5MG/0.5ML INH NEB SOLN INH ONE (18:30)
[2022-10-29] MEDS ORDERED: IPRATROPIUM 0.5MG/ALBUTEROL 2.5MG INH SOL UD 3ML (DUONEB) NEB ONE (18:30)
[2022-10-29 19:03] LABS: ABG BASE EXCESS 2.6 (-2.0-2.0); ABG HCO3 27.6 MEQ/L (22.0-26.0); ABG O2 SATURATION 97.8 % (95.0-99.0); ABG PARTIAL PRESSURE CO2 43.7 mmHg (35.0-45.0); ABG PARTIAL PRESSURE O2 102.5 mmHg (75.0-100.0); ABG STANDARD HCO3 26.8 MEQ/L (22.0-26.0); ABG TOTAL CO2 28.9 MEQ/L (22.0-29.0); ABG pH (ARTERIAL) 7.418 UNITS (7.350-7.450)
[2022-10-29 19:33] LABS: BASO % 0.2 % (0.0-1.0); EOS % 0.1 % (0.0-3.0); HEMATOCRIT 50.1 % (42.0-52.0); HEMOGLOBIN 14.9 g/dl (13.5-17.5); LYMPH # 1.7 10^3/uL (1.5-5.0); LYMPH % 10.2 % (24.0-44.0); MEAN CORPUSCULAR HGB CONC 29.7 g/dl (32.0-36.5); MEAN CORPUSCULAR VOLUME 80.5 fl (80.0-96.0); MONO # 0.7 10^3/uL (0.0-0.8); MONO % 4.2 % (2.0-8.0); NEUTROPHILS % 83.9 % (36.0-66.0); PLATELET COUNT, AUTOMATED 220 10^3/uL (150-450); RED BLOOD COUNT 6.22 10^6/uL (4.30-6.10); WHITE BLOOD COUNT 16.7 10^3/uL (4.0-10.0)
[2022-10-29 19:51] LABS: INR 1.01; PROTHROMBIN TIME 13.5 SECONDS (12.5-14.5)
[2022-10-29] MEDS: ADVAIR HFA 230/21MCG INHALER INH SCH (20:00)
[2022-10-29 20:04] LABS: CK-MB VALUE MASS 1.3 NG/ML (<3.6)
[2022-10-29 20:06] LABS: ALBUMIN 3.4 G/DL (3.2-5.2); ALKALINE PHOSPHATASE 73 U/L (46-116); ALT/SGPT 32 U/L (7.0-40); AST/SGOT 33 U/L (<34); BILIRUBIN,DIRECT < 0.1 MG/DL (<0.4); BILIRUBIN,TOTAL 0.2 MG/DL (0.3-1.2); BLOOD UREA NITROGEN 21 MG/DL (9-23); CALCIUM LEVEL 8.5 MG/DL (8.5-10.1); CARBON DIOXIDE LEVEL 30 MMOL/L (20-31); CHLORIDE LEVEL 101 MMOL/L (98-107); CREATININE FOR GFR 0.91 MG/DL (0.70-1.30); GLOMERULAR FILTRATION RATE > 60.0 (>56); GLUCOSE, FASTING 85 MG/DL (60-100); POTASSIUM SERUM 4.7 MMOL/L (3.5-5.1); SODIUM LEVEL 138 MMOL/L (136-145); TOTAL PROTEIN 6.4 G/DL (5.7-8.2)
[2022-10-29 20:08] LABS: THYROID STIMULATING HORMONE 1.258 uIU/ML (0.55-4.78)
[2022-10-29 20:13] LABS: CPK CREATINE PHOSPHOKINASE 43 U/L (46-171); MB/CK RELATIVE INDEX 3.02 (< OR =4)
[2022-10-29] MEDS ORDERED: ACETAMINOPHEN TAB 650MG DOSE (2X325MG) PO PRN (20:20)
[2022-10-29] MEDS ORDERED: D3 S1CAP3 PO (20:38)
[2022-10-29] MEDS ORDERED: PRED20TA PO (20:38)
[2022-10-29] MEDS ORDERED: HOME MED LIST COMPLETE! XX SCH (20:40)
[2022-10-29] MEDS ORDERED: cefTRIAXone SOD 1 GM in D5W MINI-BAG PLUS 50 ML IV SCH (21:00)
[2022-10-29] MEDS: DOXYCYCLINE HYCLATE 100MG TABLET PO SCH (21:16)
[2022-10-29 22:19] VITALS: BP 155/85
[2022-10-29] MEDS: traZODone 50 MG TAB PO SCH (23:31)
[2022-10-29] MEDS: PARoxetine 20MG TABLET PO SCH (23:31)
[2022-10-29] MEDS: busPIRone 10 MG TAB PO SCH (23:31)
[2022-10-30] MEDS: IPRATROPIUM 0.5MG/ALBUTEROL 2.5MG INH SOL UD 3ML (DUONEB) NEB SCH ×4 (02:00→19:40)
[2022-10-30 05:17] VITALS: BP 139/77
[2022-10-30] MEDS: methylPREDNISolone 40MG 1ML VIAL IV SCH ×2 (05:22→17:15)
[2022-10-30 06:58] LABS: BASO % 0.2 % (0.0-1.0); HEMOGLOBIN 14.9 g/dl (13.5-17.5); LYMPH # 1.1 10^3/uL (1.5-5.0); LYMPH % 8.3 % (24.0-44.0); MEAN CORPUSCULAR HEMOGLOBIN 23.3 pg (27.0-33.0); MEAN CORPUSCULAR HGB CONC 28.7 g/dl (32.0-36.5); MEAN CORPUSCULAR VOLUME 81.4 fl (80.0-96.0); MONO # 0.4 10^3/uL (0.0-0.8); MONO % 3.1 % (2.0-8.0); NEUTROPHILS # 11.2 10^3/uL (1.5-8.5); NEUTROPHILS % 87.3 % (36.0-66.0); PLATELET COUNT, AUTOMATED 213 10^3/uL (150-450); RED BLOOD COUNT 6.39 10^6/uL (4.30-6.10); WHITE BLOOD COUNT 12.8 10^3/uL (4.0-10.0)
[2022-10-30 07:31] LABS: BLOOD UREA NITROGEN 18 MG/DL (9-23); CALCIUM LEVEL 8.8 MG/DL (8.5-10.1); CARBON DIOXIDE LEVEL 32 MMOL/L (20-31); CHLORIDE LEVEL 101 MMOL/L (98-107); CREATININE FOR GFR 0.86 MG/DL (0.70-1.30); GLOMERULAR FILTRATION RATE > 60.0 (>56); GLUCOSE, FASTING 121 MG/DL (60-100); MAGNESIUM LEVEL 1.9 MG/DL (1.8-2.4); POTASSIUM SERUM 4.9 MMOL/L (3.5-5.1); SODIUM LEVEL 138 MMOL/L (136-145)
[2022-10-30] MEDS: ADVAIR HFA 230/21MCG INHALER INH SCH ×2 (07:44→19:40)
[2022-10-30] MEDS: ENOXAPARIN 40MG/0.4ML SYRINGE (J1650 PER 10MG) SC SCH (08:59)
[2022-10-30] MEDS: PANTOPRAZOLE 40MG TAB (PROTONIX) PO SCH (09:00)
[2022-10-30] MEDS: METHADONE 10MG TAB PO SCH (09:00)
[2022-10-30] MEDS: BACTRIM 160MG/800MG DS TAB PO SCH (09:00)
[2022-10-30] MEDS: MULTIVITAMINS/MINERALS THERAP 1 TAB PO SCH (09:00)
[2022-10-30] MEDS: busPIRone 10 MG TAB PO SCH ×4 (09:00→20:35)
[2022-10-30] MEDS: DOXYCYCLINE HYCLATE 100MG TABLET PO SCH ×2 (09:00→20:35)
[2022-10-30 11:17] VITALS: O2SAT 89
[2022-10-30 11:51] VITALS: O2SAT 92
[2022-10-30 14:00] VITALS: BP 113/80
[2022-10-30 18:00] VITALS: BP 128/75
[2022-10-30 20:00] VITALS: BP 128/75
[2022-10-30] MEDS ORDERED: cefTRIAXone SOD 2 GM in D5W MINI-BAG PLUS 50 ML IV SCH (20:00)
[2022-10-30] MEDS: PARoxetine 20MG TABLET PO SCH (20:35)
[2022-10-30] MEDS: cefTRIAXone SOD 2 GM in D5W MINI-BAG PLUS 50 ML IV SCH (20:35)
[2022-10-30] MEDS: traZODone 50 MG TAB PO SCH (20:35)
[2022-10-31] MEDS: IPRATROPIUM 0.5MG/ALBUTEROL 2.5MG INH SOL UD 3ML (DUONEB) NEB SCH ×4 (02:00→19:38)
[2022-10-31] MEDS: methylPREDNISolone 40MG 1ML VIAL IV SCH ×2 (05:46→18:05)
[2022-10-31 06:00] VITALS: BP 124/70
[2022-10-31 06:10] LABS: HEMATOCRIT 50.7 % (42.0-52.0); HEMOGLOBIN 14.7 g/dl (13.5-17.5); MEAN CORPUSCULAR HEMOGLOBIN 23.5 pg (27.0-33.0); MEAN CORPUSCULAR VOLUME 81.1 fl (80.0-96.0); PLATELET COUNT, AUTOMATED 205 10^3/uL (150-450); RED BLOOD COUNT 6.25 10^6/uL (4.30-6.10)
[2022-10-31 06:38] LABS: BLOOD UREA NITROGEN 22 MG/DL (9-23); CALCIUM LEVEL 8.9 MG/DL (8.5-10.1); CARBON DIOXIDE LEVEL 31 MMOL/L (20-31); CHLORIDE LEVEL 100 MMOL/L (98-107); CREATININE FOR GFR 0.88 MG/DL (0.70-1.30); GLOMERULAR FILTRATION RATE > 60.0 (>56); GLUCOSE, FASTING 94 MG/DL (60-100); POTASSIUM SERUM 4.6 MMOL/L (3.5-5.1); SODIUM LEVEL 137 MMOL/L (136-145)
[2022-10-31] MEDS: ADVAIR HFA 230/21MCG INHALER INH SCH ×2 (07:35→19:38)
[2022-10-31 09:00] VITALS: O2SAT 93
[2022-10-31] MEDS: busPIRone 10 MG TAB PO SCH ×4 (09:35→21:11)
[2022-10-31] MEDS: METHADONE 10MG TAB PO SCH (09:35)
[2022-10-31] MEDS: MULTIVITAMINS/MINERALS THERAP 1 TAB PO SCH (09:36)
[2022-10-31] MEDS: ENOXAPARIN 40MG/0.4ML SYRINGE (J1650 PER 10MG) SC SCH (09:36)
[2022-10-31] MEDS: DOXYCYCLINE HYCLATE 100MG TABLET PO SCH ×2 (09:36→21:12)
[2022-10-31] MEDS: PANTOPRAZOLE 40MG TAB (PROTONIX) PO SCH (09:36)
[2022-10-31 14:00] VITALS: BP 128/89
[2022-10-31 19:31] VITALS: BP 122/76
[2022-10-31] MEDS: traZODone 50 MG TAB PO SCH (21:11)
[2022-10-31] MEDS: PARoxetine 20MG TABLET PO SCH (21:11)
[2022-10-31] MEDS: cefTRIAXone SOD 2 GM in D5W MINI-BAG PLUS 50 ML IV SCH (21:12)
[2022-11-01] MEDS: IPRATROPIUM 0.5MG/ALBUTEROL 2.5MG INH SOL UD 3ML (DUONEB) NEB SCH ×5 (01:03→19:25)
[2022-11-01] MEDS: methylPREDNISolone 40MG 1ML VIAL IV SCH ×2 (05:35→17:22)
[2022-11-01 06:00] VITALS: BP 133/88
[2022-11-01 06:20] LABS: HEMATOCRIT 56.4 % (42.0-52.0); HEMOGLOBIN 16.2 g/dl (13.5-17.5); MEAN CORPUSCULAR HEMOGLOBIN 23.8 pg (27.0-33.0); MEAN CORPUSCULAR HGB CONC 28.7 g/dl (32.0-36.5); MEAN CORPUSCULAR VOLUME 82.7 fl (80.0-96.0); PLATELET COUNT, AUTOMATED 192 10^3/uL (150-450); RED BLOOD COUNT 6.82 10^6/uL (4.30-6.10); WHITE BLOOD COUNT 17.1 10^3/uL (4.0-10.0)
[2022-11-01 06:46] LABS: BLOOD UREA NITROGEN 23 MG/DL (9-23); CALCIUM LEVEL 9.2 MG/DL (8.5-10.1); CARBON DIOXIDE LEVEL 33 MMOL/L (20-31); CHLORIDE LEVEL 98 MMOL/L (98-107); CREATININE FOR GFR 0.87 MG/DL (0.70-1.30); GLOMERULAR FILTRATION RATE > 60.0 (>56); GLUCOSE, FASTING 98 MG/DL (60-100); POTASSIUM SERUM 4.4 MMOL/L (3.5-5.1); SODIUM LEVEL 138 MMOL/L (136-145)
[2022-11-01] MEDS: METHADONE 10MG TAB PO SCH (09:18)
[2022-11-01] MEDS: busPIRone 10 MG TAB PO SCH ×4 (09:18→20:16)
[2022-11-01] MEDS: ENOXAPARIN 40MG/0.4ML SYRINGE (J1650 PER 10MG) SC SCH (09:18)
[2022-11-01] MEDS: DOXYCYCLINE HYCLATE 100MG TABLET PO SCH ×2 (09:18→20:17)
[2022-11-01] MEDS: MULTIVITAMINS/MINERALS THERAP 1 TAB PO SCH (09:18)
[2022-11-01] MEDS: PANTOPRAZOLE 40MG TAB (PROTONIX) PO SCH (09:18)
[2022-11-01] MEDS: ADVAIR HFA 230/21MCG INHALER INH SCH ×2 (11:00→19:24)
[2022-11-01 14:00] VITALS: BP 142/87
[2022-11-01 19:41] VITALS: BP 129/82
[2022-11-01] MEDS: PARoxetine 20MG TABLET PO SCH (20:16)
[2022-11-01] MEDS: traZODone 50 MG TAB PO SCH (20:16)
[2022-11-01] MEDS: cefTRIAXone SOD 2 GM in D5W MINI-BAG PLUS 50 ML IV SCH (20:17)
[2022-11-02] MEDS: IPRATROPIUM 0.5MG/ALBUTEROL 2.5MG INH SOL UD 3ML (DUONEB) NEB SCH ×2 (01:35→07:36)
[2022-11-02 06:07] VITALS: BP 145/96
[2022-11-02] MEDS: methylPREDNISolone 40MG 1ML VIAL IV SCH ×2 (06:12→18:21)
[2022-11-02 06:20] LABS: HEMOGLOBIN 16.2 g/dl (13.5-17.5); MEAN CORPUSCULAR HEMOGLOBIN 23.7 pg (27.0-33.0); MEAN CORPUSCULAR HGB CONC 28.9 g/dl (32.0-36.5); PLATELET COUNT, AUTOMATED 195 10^3/uL (150-450); RED BLOOD COUNT 6.83 10^6/uL (4.30-6.10); WHITE BLOOD COUNT 17.6 10^3/uL (4.0-10.0)
[2022-11-02 06:45] LABS: BLOOD UREA NITROGEN 25 MG/DL (9-23); CALCIUM LEVEL 9.1 MG/DL (8.5-10.1); CARBON DIOXIDE LEVEL 31 MMOL/L (20-31); CHLORIDE LEVEL 100 MMOL/L (98-107); CREATININE FOR GFR 0.79 MG/DL (0.70-1.30); GLOMERULAR FILTRATION RATE > 60.0 (>56); GLUCOSE, FASTING 78 MG/DL (60-100); POTASSIUM SERUM 4.6 MMOL/L (3.5-5.1); SODIUM LEVEL 136 MMOL/L (136-145)
[2022-11-02] MEDS: ADVAIR HFA 230/21MCG INHALER INH SCH ×2 (07:35→19:44)
[2022-11-02] MEDS: MULTIVITAMINS/MINERALS THERAP 1 TAB PO SCH (09:25)
[2022-11-02] MEDS: busPIRone 10 MG TAB PO SCH ×4 (09:25→20:13)
[2022-11-02] MEDS: DOXYCYCLINE HYCLATE 100MG TABLET PO SCH ×2 (09:25→20:13)
[2022-11-02] MEDS: PANTOPRAZOLE 40MG TAB (PROTONIX) PO SCH (09:25)
[2022-11-02] MEDS: METHADONE 10MG TAB PO SCH (09:26)
[2022-11-02] MEDS: ENOXAPARIN 40MG/0.4ML SYRINGE (J1650 PER 10MG) SC SCH (09:26)
[2022-11-02] MEDS: BACTRIM 160MG/800MG DS TAB PO SCH (09:30)
[2022-11-02] MEDS ORDERED: IPRATROPIUM HFA INHALER 12.9 GRAMS (ATROVENT HFA) INH SCH (11:25)
[2022-11-02] MEDS ORDERED: FUROSEMIDE 20MG/2ML VIAL IV ONE (11:25)
[2022-11-02] MEDS: LEVALBUTEROL 1.25MG 0.5ML CONCENTRATE NEB INH SCH ×2 (13:28→19:45)
[2022-11-02] MEDS: IPRATROPIUM 0.02% SOLN 0.5MG 2.5ML NEB INH SCH ×2 (13:28→19:44)
[2022-11-02 14:00] VITALS: BP 146/87
[2022-11-02] MEDS ORDERED: ISOVUE-370 76% 100ML VIAL As Ordered ONE (15:32)
[2022-11-02] MEDS: cefTRIAXone SOD 2 GM in D5W MINI-BAG PLUS 50 ML IV SCH (20:13)
[2022-11-02] MEDS: PARoxetine 20MG TABLET PO SCH (20:13)
[2022-11-02] MEDS: traZODone 50 MG TAB PO SCH (20:13)
[2022-11-02 20:55] VITALS: BP 131/85
[2022-11-03] MEDS: LEVALBUTEROL 1.25MG 0.5ML CONCENTRATE NEB INH SCH ×4 (02:00→20:00)
[2022-11-03] MEDS: IPRATROPIUM 0.02% SOLN 0.5MG 2.5ML NEB INH SCH ×4 (02:00→20:00)
[2022-11-03] MEDS: methylPREDNISolone 40MG 1ML VIAL IV SCH ×2 (05:20→17:38)
[2022-11-03 06:00] VITALS: BP 140/92
[2022-11-03 06:32] LABS: HEMATOCRIT 58.9 % (42.0-52.0); HEMOGLOBIN 17.1 g/dl (13.5-17.5); MEAN CORPUSCULAR HEMOGLOBIN 23.6 pg (27.0-33.0); MEAN CORPUSCULAR VOLUME 81.1 fl (80.0-96.0); PLATELET COUNT, AUTOMATED 184 10^3/uL (150-450); RED BLOOD COUNT 7.26 10^6/uL (4.30-6.10); WHITE BLOOD COUNT 16.4 10^3/uL (4.0-10.0)
[2022-11-03 07:04] LABS: BLOOD UREA NITROGEN 31 MG/DL (9-23); CALCIUM LEVEL 8.8 MG/DL (8.5-10.1); CARBON DIOXIDE LEVEL 30 MMOL/L (20-31); CHLORIDE LEVEL 99 MMOL/L (98-107); CREATININE FOR GFR 0.89 MG/DL (0.70-1.30); GLOMERULAR FILTRATION RATE > 60.0 (>56); GLUCOSE, FASTING 95 MG/DL (60-100); POTASSIUM SERUM 5.8 MMOL/L (3.5-5.1); SODIUM LEVEL 136 MMOL/L (136-145)
[2022-11-03] MEDS: ADVAIR HFA 230/21MCG INHALER INH SCH ×2 (07:35→20:00)
[2022-11-03] MEDS: DOXYCYCLINE HYCLATE 100MG TABLET PO SCH ×2 (09:24→20:02)
[2022-11-03] MEDS: busPIRone 10 MG TAB PO SCH ×4 (09:24→20:02)
[2022-11-03] MEDS: MULTIVITAMINS/MINERALS THERAP 1 TAB PO SCH (09:24)
[2022-11-03] MEDS: PANTOPRAZOLE 40MG TAB (PROTONIX) PO SCH (09:24)
[2022-11-03] MEDS: METHADONE 10MG TAB PO SCH (09:25)
[2022-11-03] MEDS: ENOXAPARIN 40MG/0.4ML SYRINGE (J1650 PER 10MG) SC SCH (09:25)
[2022-11-03 14:00] VITALS: BP 145/94
[2022-11-03 19:37] VITALS: BP 141/86
[2022-11-03] MEDS: PARoxetine 20MG TABLET PO SCH (20:02)
[2022-11-03] MEDS: traZODone 50 MG TAB PO SCH (20:02)
[2022-11-03] MEDS: cefTRIAXone SOD 2 GM in D5W MINI-BAG PLUS 50 ML IV SCH (20:02)
[2022-11-04] MEDS: IPRATROPIUM 0.02% SOLN 0.5MG 2.5ML NEB INH SCH ×2 (01:43→07:40)
[2022-11-04] MEDS: LEVALBUTEROL 1.25MG 0.5ML CONCENTRATE NEB INH SCH ×2 (01:43→07:40)
[2022-11-04] MEDS: methylPREDNISolone 40MG 1ML VIAL IV SCH (05:09)
[2022-11-04 05:52] VITALS: BP 138/88
[2022-11-04 06:58] LABS: HEMATOCRIT 57.4 % (42.0-52.0); HEMOGLOBIN 16.5 g/dl (13.5-17.5); MEAN CORPUSCULAR HEMOGLOBIN 23.2 pg (27.0-33.0); MEAN CORPUSCULAR HGB CONC 28.7 g/dl (32.0-36.5); MEAN CORPUSCULAR VOLUME 80.8 fl (80.0-96.0); PLATELET COUNT, AUTOMATED 188 10^3/uL (150-450); WHITE BLOOD COUNT 16.3 10^3/uL (4.0-10.0)
[2022-11-04 07:24] LABS: BLOOD UREA NITROGEN 32 MG/DL (9-23); CALCIUM LEVEL 9.3 MG/DL (8.5-10.1); CARBON DIOXIDE LEVEL 32 MMOL/L (20-31); CHLORIDE LEVEL 100 MMOL/L (98-107); CREATININE FOR GFR 0.86 MG/DL (0.70-1.30); GLOMERULAR FILTRATION RATE > 60.0 (>56); GLUCOSE, FASTING 84 MG/DL (60-100); POTASSIUM SERUM 4.6 MMOL/L (3.5-5.1); SODIUM LEVEL 137 MMOL/L (136-145)
[2022-11-04] MEDS: ADVAIR HFA 230/21MCG INHALER INH SCH (07:39)
[2022-11-04] MEDS: MULTIVITAMINS/MINERALS THERAP 1 TAB PO SCH (08:49)
[2022-11-04] MEDS: DOXYCYCLINE HYCLATE 100MG TABLET PO SCH (08:49)
[2022-11-04] MEDS: PANTOPRAZOLE 40MG TAB (PROTONIX) PO SCH (08:49)
[2022-11-04] MEDS: METHADONE 10MG TAB PO SCH (08:49)
[2022-11-04] MEDS: BACTRIM 160MG/800MG DS TAB PO SCH (08:49)
[2022-11-04] MEDS: busPIRone 10 MG TAB PO SCH (08:49)
[2022-11-04] MEDS: ENOXAPARIN 40MG/0.4ML SYRINGE (J1650 PER 10MG) SC SCH (08:50)
[2022-11-04] MEDS ORDERED: PRED20TA PO (09:05)
[2022-11-04] MEDS ORDERED: IPRATROPIUM 0.5MG/ALBUTEROL 2.5MG INH SOL UD 3ML (DUONEB) NEB SCH (14:00)
== END 2022-11-04 12:45 | disposition home or self-care (01) | DRG 189 ==
LOC: EDBD 17:36 → M ED 17:36 → M ED INP 20:18 → M MSPAV 22:10
PROVIDERS: ADMIT Family Medicine; ATTEND Family Medicine
DX: J96.21 Acute and chronic respiratory failure with hypoxia (principal); J84.82 Adult pulmonary Langerhans cell histiocytosis; F11.20 Opioid dependence, uncomplicated; K21.9 Gastro-esophageal reflux disease without esophagitis; J84.10 Pulmonary fibrosis, unspecified; Z79.899 Other long term (current) drug therapy; Z79.52 Long term (current) use of systemic steroids; F41.9 Anxiety disorder, unspecified; F32.A Depression, unspecified; Z87.891 Personal history of nicotine dependence

== ENCOUNTER 2022-11-08 10:33 | Emergency (ER) | payer MEDICARE, MEDICAID ==
[~2022-11-08] VITALS: Ht 182.9 cm; Wt 104.4 kg
[~2022-11-08 10:33] MED LIST changes: +D3 S1CAP3 PO
[2022-11-08] MEDS ORDERED: KETOROLAC 30 MG/ML 1ML VIAL IV ONE (11:40)
[2022-11-08 11:57] LABS: BASO # 0.1 10^3/uL (0.0-0.2); BASO % 0.5 % (0.0-1.0); EOS # 0.3 10^3/uL (0.0-0.5); EOS % 2.4 % (0.0-3.0); HEMATOCRIT 51.3 % (42.0-52.0); HEMOGLOBIN 15.2 g/dl (13.5-17.5); LYMPH # 2.8 10^3/uL (1.5-5.0); LYMPH % 19.7 % (24.0-44.0); MEAN CORPUSCULAR HGB CONC 29.6 g/dl (32.0-36.5); MONO % 7.2 % (2.0-8.0); NEUTROPHILS # 9.5 10^3/uL (1.5-8.5); NEUTROPHILS % 67.4 % (36.0-66.0); PLATELET COUNT, AUTOMATED 155 10^3/uL (150-450); RED BLOOD COUNT 6.33 10^6/uL (4.30-6.10)
[2022-11-08 12:15] LABS: ERYTHROCYTE SEDIMENTATION RATE 23 mm/hr (0-20)
[2022-11-08 12:20] LABS: ALBUMIN 3.3 G/DL (3.2-5.2); ALKALINE PHOSPHATASE 71 U/L (46-116); ALT/SGPT 51 U/L (7.0-40); AST/SGOT 33 U/L (<34); BILIRUBIN,TOTAL 0.4 MG/DL (0.3-1.2); BLOOD UREA NITROGEN 11 MG/DL (9-23); CALCIUM LEVEL 8.4 MG/DL (8.5-10.1); CARBON DIOXIDE LEVEL 31 MMOL/L (20-31); CHLORIDE LEVEL 102 MMOL/L (98-107); CREATININE FOR GFR 0.97 MG/DL (0.70-1.30); GLOMERULAR FILTRATION RATE > 60.0 (>56); GLUCOSE, FASTING 64 MG/DL (60-100); POTASSIUM SERUM 4.1 MMOL/L (3.5-5.1); RHEUMATOID FACTOR QUANT 19.1 IU/ML (<14); SODIUM LEVEL 138 MMOL/L (136-145); TOTAL PROTEIN 6.4 G/DL (5.7-8.2)
[2022-11-08 12:22] LABS: THYROID STIMULATING HORMONE 3.391 uIU/ML (0.55-4.78)
[2022-11-08 12:25] LABS: URIC ACID 4.2 MG/DL (3.7-9.2)
[2022-11-08] MEDS ORDERED: KETOROLAC 30 MG/ML 1ML VIAL IV STA (14:09)
[2022-11-08 15:40] VITALS: BP 130/81
[2022-11-10 14:09] LABS: ANTINUCLEAR ANTIBODIES DIRECT Negative (Negative)
== END 2022-11-08 15:48 | disposition home or self-care (01) ==
LOC: M ED 10:33 → M ED INP 13:51 → UNDOADMOB 13:51 → M ED INP 14:13 → UNDOADMOB 14:13 → M ED 15:48
DX: M13.0 Polyarthritis, unspecified (principal); K21.9 Gastro-esophageal reflux disease without esophagitis; E11.9 Type 2 diabetes mellitus without complications; F41.9 Anxiety disorder, unspecified; Z87.891 Personal history of nicotine dependence; Z79.52 Long term (current) use of systemic steroids; Z79.810 Long term (current) use of selective estrogen receptor modulators (SERMs); Z79.899 Other long term (current) drug therapy
CPT/HCPCS: 73564; 80053; 84443; 84550; 85025; 85652; 86038; 86140; 86200; 86431; 87040; 96374; 96376; 99284; J1885

== ENCOUNTER 2022-11-18 19:13 | Inpatient (IN) | payer MEDICARE, MEDICAID ==
[~2022-11-18] VITALS: Ht 182.9 cm; Wt 93.2 kg
[2022-11-18 20:10] LABS: BASO % 0.1 % (0.0-1.0); EOS % 0.1 % (0.0-3.0); HEMATOCRIT 50.8 % (42.0-52.0); HEMOGLOBIN 15.2 g/dl (13.5-17.5); LYMPH # 1.3 10^3/uL (1.5-5.0); LYMPH % 13.8 % (24.0-44.0); MEAN CORPUSCULAR HEMOGLOBIN 24.6 pg (27.0-33.0); MEAN CORPUSCULAR HGB CONC 29.9 g/dl (32.0-36.5); MEAN CORPUSCULAR VOLUME 82.1 fl (80.0-96.0); MONO # 0.6 10^3/uL (0.0-0.8); MONO % 6.1 % (2.0-8.0); NEUTROPHILS # 7.3 10^3/uL (1.5-8.5); NEUTROPHILS % 79.2 % (36.0-66.0); PLATELET COUNT, AUTOMATED 168 10^3/uL (150-450); RED BLOOD COUNT 6.19 10^6/uL (4.30-6.10); WHITE BLOOD COUNT 9.2 10^3/uL (4.0-10.0)
[2022-11-18 20:26] LABS: ALBUMIN 3.5 G/DL (3.2-5.2); BILIRUBIN,DIRECT 0.3 MG/DL (<0.4); BILIRUBIN,TOTAL 0.8 MG/DL (0.3-1.2); CK-MB VALUE MASS 3.1 NG/ML (<3.6); CREATININE FOR GFR 1.37 MG/DL (0.70-1.30); GLOMERULAR FILTRATION RATE 57.9 (>56); POTASSIUM SERUM 4.5 MMOL/L (3.5-5.1); TOTAL PROTEIN 6.6 G/DL (5.7-8.2)
[2022-11-18 20:29] LABS: RSV AMPLIFICATION NEGATIVE (NEGATIVE)
[2022-11-18 20:44] LABS: MB/CK RELATIVE INDEX 0.23 (< OR =4)
[2022-11-18] MEDS ORDERED: methylPREDNISolone 125MG 2ML VIAL IV ONE (22:05)
[2022-11-18 23:13] LABS: ABG BASE EXCESS 0.1 (-2.0-2.0); ABG HCO3 25.6 MMOL/L (22.0-26.0); ABG O2 SATURATION 93.2 % (95.0-99.0); ABG PARTIAL PRESSURE CO2 44.8 mmHg (35.0-45.0); ABG PARTIAL PRESSURE O2 73.5 mmHg (75.0-100.0); ABG STANDARD HCO3 24.4 MMOL/L. (22.0-26.0); ABG pH (ARTERIAL) 7.375 UNITS (7.350-7.450)
[2022-11-18] MEDS ORDERED: GLUCOSE 4GM CHEW TABLET PO PRN (23:25)
[2022-11-18] MEDS ORDERED: ALBUTEROL SULFATE 2.5MG/0.5ML INH NEB SOLN NEB PRN (23:25)
[2022-11-18] MEDS ORDERED: GLUCAGON INJ 1MG VIAL SC PRN (23:25)
[2022-11-18] MEDS ORDERED: ACETAMINOPHEN TAB 650MG DOSE (2X325MG) PO PRN (23:25)
[2022-11-18] MEDS ORDERED: DEXTROSE 50% 50ML SYRINGE IV PRN (23:25)
[2022-11-18] MEDS ORDERED: HOME MED LIST COMPLETE! XX SCH (23:45)
[2022-11-18] MEDS ORDERED: PRED20TA PO (23:45)
[2022-11-19] MEDS: IPRATROPIUM 0.5MG/ALBUTEROL 2.5MG INH SOL UD 3ML (DUONEB) NEB SCH ×4 (01:01→20:48)
[2022-11-19] MEDS ORDERED: NS 1,000 ML IV SCH ×2 (01:55→07:00)
[2022-11-19] MEDS ORDERED: NS 1,000 ML IV ONE (01:55)
[2022-11-19] MEDS ORDERED: METH10CO PO (03:41)
[2022-11-19] MEDS: methylPREDNISolone 40MG 1ML VIAL IV SCH ×3 (06:17→21:09)
[2022-11-19] MEDS: HEPARIN SOD (PORCINE) 5000UNITS/ML 1ML VIAL/SYRINGE SC SCH ×2 (06:17→13:40)
[2022-11-19 06:55] LABS: ALKALINE PHOSPHATASE 68 U/L (46-116); ALT/SGPT 36 U/L (7.0-40); AST/SGOT 75 U/L (<34); BILIRUBIN,TOTAL 0.7 MG/DL (0.3-1.2); BLOOD UREA NITROGEN 15 MG/DL (9-23); CALCIUM LEVEL 7.9 MG/DL (8.5-10.1); CARBON DIOXIDE LEVEL 27 MMOL/L (20-31); CHLORIDE LEVEL 105 MMOL/L (98-107); CREATININE FOR GFR 1.14 MG/DL (0.70-1.30); GLOMERULAR FILTRATION RATE > 60.0 (>56); GLUCOSE, FASTING 113 MG/DL (60-100); POTASSIUM SERUM 4.3 MMOL/L (3.5-5.1); SODIUM LEVEL 139 MMOL/L (136-145); TOTAL PROTEIN 5.8 G/DL (5.7-8.2)
[2022-11-19] MEDS: INSULIN LISPRO (NovoLOG) PER UNIT SC SCH ×4 (07:30→20:29)
[2022-11-19] MEDS: ADVAIR HFA 230/21MCG INHALER INH SCH ×2 (08:00→20:49)
[2022-11-19] MEDS: THIAMINE 100 MG TAB PO SCH (09:00)
[2022-11-19] MEDS: FOLIC ACID 1MG TAB PO SCH (09:00)
[2022-11-19] MEDS: MULTIVITAMINS/MINERALS THERAP 1 TAB PO SCH (09:00)
[2022-11-19 09:19] VITALS: O2SAT 90
[2022-11-19 09:31] LABS: CPK CREATINE PHOSPHOKINASE 1200 U/L (46-171)
[2022-11-19] MEDS ORDERED: NOTE (09:49)
[2022-11-19] MEDS ORDERED: HOME MED LIST COMPLETE! XX SCH (09:50)
[2022-11-19] MEDS ORDERED: PILL CUTTER 1 EACH XX PRN (09:50)
[2022-11-19] MEDS ORDERED: ISOVUE-370 76% 100ML VIAL As Ordered ONE ×2 (10:43→10:50)
[2022-11-19 12:00] VITALS: BP 113/67
[2022-11-19] MEDS: busPIRone 10 MG TAB PO SCH ×3 (14:02→20:45)
[2022-11-19] MEDS: METHADONE 10MG TAB PO SCH (14:02)
[2022-11-19 16:00] VITALS: BP 108/66
[2022-11-19] MEDS: RIVAROXABAN 15MG TAB (XARELTO) PO SCH (18:36)
[2022-11-19 19:48] VITALS: BP 106/61
[2022-11-19] MEDS: PARoxetine 20MG TABLET PO SCH (20:45)
[2022-11-19] MEDS: traZODone 50 MG TAB PO SCH (20:45)
[2022-11-19 23:40] VITALS: BP 110/63
[2022-11-20] MEDS: IPRATROPIUM 0.5MG/ALBUTEROL 2.5MG INH SOL UD 3ML (DUONEB) NEB SCH ×4 (02:00→19:54)
[2022-11-20 04:30] VITALS: BP 116/69
[2022-11-20] MEDS: methylPREDNISolone 40MG 1ML VIAL IV SCH ×3 (06:05→20:20)
[2022-11-20] MEDS: ADVAIR HFA 230/21MCG INHALER INH SCH ×2 (06:12→19:53)
[2022-11-20 07:44] LABS: BASO % 0.1 % (0.0-1.0); HEMATOCRIT 47.5 % (42.0-52.0); HEMOGLOBIN 14.1 g/dl (13.5-17.5); LYMPH # 0.8 10^3/uL (1.5-5.0); LYMPH % 9.3 % (24.0-44.0); MEAN CORPUSCULAR HEMOGLOBIN 24.7 pg (27.0-33.0); MEAN CORPUSCULAR HGB CONC 29.7 g/dl (32.0-36.5); MONO # 0.5 10^3/uL (0.0-0.8); MONO % 5.2 % (2.0-8.0); NEUTROPHILS # 7.6 10^3/uL (1.5-8.5); NEUTROPHILS % 84.6 % (36.0-66.0); PLATELET COUNT, AUTOMATED 131 10^3/uL (150-450); RED BLOOD COUNT 5.72 10^6/uL (4.30-6.10)
[2022-11-20 08:00] VITALS: BP 117/58
[2022-11-20 08:06] LABS: ALBUMIN 3.2 G/DL (3.2-5.2); ALKALINE PHOSPHATASE 64 U/L (46-116); ALT/SGPT 41 U/L (7.0-40); AST/SGOT 49 U/L (<34); BILIRUBIN,TOTAL 0.6 MG/DL (0.3-1.2); BLOOD UREA NITROGEN 18 MG/DL (9-23); CALCIUM LEVEL 8.3 MG/DL (8.5-10.1); CARBON DIOXIDE LEVEL 32 MMOL/L (20-31); CHLORIDE LEVEL 102 MMOL/L (98-107); CREATININE FOR GFR 0.98 MG/DL (0.70-1.30); GLOMERULAR FILTRATION RATE > 60.0 (>56); GLUCOSE, FASTING 112 MG/DL (60-100); POTASSIUM SERUM 4.5 MMOL/L (3.5-5.1); SODIUM LEVEL 139 MMOL/L (136-145); TOTAL PROTEIN 5.9 G/DL (5.7-8.2)
[2022-11-20 08:07] LABS: CPK CREATINE PHOSPHOKINASE 236 U/L (46-171)
[2022-11-20] MEDS: BACTRIM 160MG/800MG DS TAB PO SCH (08:26)
[2022-11-20] MEDS: INSULIN LISPRO (NovoLOG) PER UNIT SC SCH ×4 (08:26→20:12)
[2022-11-20] MEDS: RIVAROXABAN 15MG TAB (XARELTO) PO SCH ×2 (08:26→17:48)
[2022-11-20] MEDS: FOLIC ACID 1MG TAB PO SCH (08:26)
[2022-11-20] MEDS: busPIRone 10 MG TAB PO SCH ×4 (08:26→20:19)
[2022-11-20] MEDS: METHADONE 10MG TAB PO SCH (08:27)
[2022-11-20] MEDS: MULTIVITAMINS/MINERALS THERAP 1 TAB PO SCH (08:27)
[2022-11-20] MEDS: THIAMINE 100 MG TAB PO SCH (08:27)
[2022-11-20 16:00] VITALS: BP 111/75
[2022-11-20 20:04] VITALS: BP 119/73
[2022-11-20] MEDS: PARoxetine 20MG TABLET PO SCH (20:19)
[2022-11-20] MEDS: traZODone 50 MG TAB PO SCH (20:19)
[2022-11-20 23:58] VITALS: BP 119/72
[2022-11-21] MEDS: IPRATROPIUM 0.5MG/ALBUTEROL 2.5MG INH SOL UD 3ML (DUONEB) NEB SCH ×4 (01:43→19:54)
[2022-11-21] MEDS: methylPREDNISolone 40MG 1ML VIAL IV SCH ×3 (05:33→21:23)
[2022-11-21 06:03] VITALS: BP 126/77
[2022-11-21 06:55] LABS: BASO % 0.1 % (0.0-1.0); EOS % 0.1 % (0.0-3.0); HEMATOCRIT 46.2 % (42.0-52.0); HEMOGLOBIN 13.6 g/dl (13.5-17.5); LYMPH # 0.8 10^3/uL (1.5-5.0); LYMPH % 9.1 % (24.0-44.0); MEAN CORPUSCULAR HEMOGLOBIN 24.7 pg (27.0-33.0); MEAN CORPUSCULAR HGB CONC 29.4 g/dl (32.0-36.5); MONO # 0.5 10^3/uL (0.0-0.8); MONO % 5.6 % (2.0-8.0); NEUTROPHILS # 7.8 10^3/uL (1.5-8.5); NEUTROPHILS % 84.5 % (36.0-66.0); PLATELET COUNT, AUTOMATED 137 10^3/uL (150-450); WHITE BLOOD COUNT 9.3 10^3/uL (4.0-10.0)
[2022-11-21 07:25] LABS: ALBUMIN 3.2 G/DL (3.2-5.2); ALKALINE PHOSPHATASE 60 U/L (46-116); ALT/SGPT 37 U/L (7.0-40); AST/SGOT 31 U/L (<34); BILIRUBIN,TOTAL 0.6 MG/DL (0.3-1.2); BLOOD UREA NITROGEN 17 MG/DL (9-23); CALCIUM LEVEL 8.8 MG/DL (8.5-10.1); CARBON DIOXIDE LEVEL 32 MMOL/L (20-31); CHLORIDE LEVEL 101 MMOL/L (98-107); CREATININE FOR GFR 0.89 MG/DL (0.70-1.30); GLOMERULAR FILTRATION RATE > 60.0 (>56); GLUCOSE, FASTING 110 MG/DL (60-100); POTASSIUM SERUM 4.6 MMOL/L (3.5-5.1); SODIUM LEVEL 137 MMOL/L (136-145); TOTAL PROTEIN 5.8 G/DL (5.7-8.2)
[2022-11-21] MEDS: ADVAIR HFA 230/21MCG INHALER INH SCH ×2 (07:29→19:54)
[2022-11-21 08:00] VITALS: BP 118/69
[2022-11-21] MEDS: METHADONE 10MG TAB PO SCH (08:25)
[2022-11-21] MEDS: MULTIVITAMINS/MINERALS THERAP 1 TAB PO SCH (08:25)
[2022-11-21] MEDS: busPIRone 10 MG TAB PO SCH ×4 (08:26→21:23)
[2022-11-21] MEDS: FOLIC ACID 1MG TAB PO SCH (08:26)
[2022-11-21] MEDS: RIVAROXABAN 15MG TAB (XARELTO) PO SCH ×2 (08:26→17:00)
[2022-11-21] MEDS: THIAMINE 100 MG TAB PO SCH (08:26)
[2022-11-21] MEDS: INSULIN LISPRO (NovoLOG) PER UNIT SC SCH ×4 (08:27→21:00)
[2022-11-21 12:00] VITALS: BP 113/63
[2022-11-21 16:00] VITALS: BP 117/70
[2022-11-21 20:00] VITALS: BP 117/70
[2022-11-21] MEDS: PREGABALIN 75 MG CAP(LYRICA) PO SCH (21:23)
[2022-11-21] MEDS: traZODone 50 MG TAB PO SCH (21:23)
[2022-11-21] MEDS: PARoxetine 20MG TABLET PO SCH (21:26)
[2022-11-22] VITALS (7 sets, daily range): BP systolic 108–136; BP diastolic 67–78
[2022-11-22] MEDS: IPRATROPIUM 0.5MG/ALBUTEROL 2.5MG INH SOL UD 3ML (DUONEB) NEB SCH ×4 (02:00→20:30)
[2022-11-22] MEDS: methylPREDNISolone 40MG 1ML VIAL IV SCH ×3 (06:13→21:10)
[2022-11-22 07:16] LABS: BASO % 0.1 % (0.0-1.0); HEMATOCRIT 52.9 % (42.0-52.0); LYMPH # 1.3 10^3/uL (1.5-5.0); LYMPH % 10.1 % (24.0-44.0); MEAN CORPUSCULAR HEMOGLOBIN 24.8 pg (27.0-33.0); MEAN CORPUSCULAR HGB CONC 30.1 g/dl (32.0-36.5); MEAN CORPUSCULAR VOLUME 82.5 fl (80.0-96.0); MONO # 0.8 10^3/uL (0.0-0.8); MONO % 6.5 % (2.0-8.0); NEUTROPHILS # 10.3 10^3/uL (1.5-8.5); NEUTROPHILS % 82.7 % (36.0-66.0); PLATELET COUNT, AUTOMATED 193 10^3/uL (150-450); RED BLOOD COUNT 6.41 10^6/uL (4.30-6.10); WHITE BLOOD COUNT 12.4 10^3/uL (4.0-10.0)
[2022-11-22 07:17] LABS: HEMOGLOBIN 15.9 g/dl (13.5-17.5)
[2022-11-22] MEDS: ADVAIR HFA 230/21MCG INHALER INH SCH ×2 (07:26→19:10)
[2022-11-22] MEDS: INSULIN LISPRO (NovoLOG) PER UNIT SC SCH ×4 (07:30→19:41)
[2022-11-22 07:51] LABS: ALBUMIN 3.6 G/DL (3.2-5.2); ALKALINE PHOSPHATASE 72 U/L (46-116); ALT/SGPT 38 U/L (7.0-40); AST/SGOT 24 U/L (<34); BILIRUBIN,TOTAL 0.9 MG/DL (0.3-1.2); BLOOD UREA NITROGEN 18 MG/DL (9-23); CARBON DIOXIDE LEVEL 28 MMOL/L (20-31); CHLORIDE LEVEL 99 MMOL/L (98-107); CREATININE FOR GFR 0.87 MG/DL (0.70-1.30); GLOMERULAR FILTRATION RATE > 60.0 (>56); GLUCOSE, FASTING 81 MG/DL (60-100); POTASSIUM SERUM 4.5 MMOL/L (3.5-5.1); SODIUM LEVEL 137 MMOL/L (136-145)
[2022-11-22] MEDS: PREGABALIN 75 MG CAP(LYRICA) PO SCH ×2 (08:47→21:09)
[2022-11-22] MEDS: busPIRone 10 MG TAB PO SCH ×4 (08:47→21:10)
[2022-11-22] MEDS: METHADONE 10MG TAB PO SCH (08:47)
[2022-11-22] MEDS: MULTIVITAMINS/MINERALS THERAP 1 TAB PO SCH (08:47)
[2022-11-22] MEDS: RIVAROXABAN 15MG TAB (XARELTO) PO SCH ×2 (08:47→17:04)
[2022-11-22] MEDS: FOLIC ACID 1MG TAB PO SCH (08:47)
[2022-11-22] MEDS: THIAMINE 100 MG TAB PO SCH (08:47)
[2022-11-22] MEDS: traZODone 50 MG TAB PO SCH (21:10)
[2022-11-22] MEDS: PARoxetine 20MG TABLET PO SCH (21:10)
[2022-11-23] MEDS: IPRATROPIUM 0.5MG/ALBUTEROL 2.5MG INH SOL UD 3ML (DUONEB) NEB SCH ×3 (02:00→13:49)
[2022-11-23 03:30] VITALS: BP 121/85
[2022-11-23] MEDS: methylPREDNISolone 40MG 1ML VIAL IV SCH (05:19)
[2022-11-23 07:13] LABS: BASO % 0.1 % (0.0-1.0); HEMOGLOBIN 14.8 g/dl (13.5-17.5); LYMPH # 0.6 10^3/uL (1.5-5.0); LYMPH % 6.2 % (24.0-44.0); MEAN CORPUSCULAR HEMOGLOBIN 24.7 pg (27.0-33.0); MEAN CORPUSCULAR HGB CONC 29.6 g/dl (32.0-36.5); MEAN CORPUSCULAR VOLUME 83.5 fl (80.0-96.0); MONO # 0.6 10^3/uL (0.0-0.8); MONO % 5.7 % (2.0-8.0); NEUTROPHILS % 87.4 % (36.0-66.0); PLATELET COUNT, AUTOMATED 166 10^3/uL (150-450); RED BLOOD COUNT 5.99 10^6/uL (4.30-6.10); WHITE BLOOD COUNT 10.3 10^3/uL (4.0-10.0)
[2022-11-23] MEDS: ADVAIR HFA 230/21MCG INHALER INH SCH (07:28)
[2022-11-23 07:54] LABS: ALBUMIN 3.2 G/DL (3.2-5.2); ALKALINE PHOSPHATASE 61 U/L (46-116); ALT/SGPT 30 U/L (7.0-40); AST/SGOT 16 U/L (<34); BILIRUBIN,TOTAL 0.7 MG/DL (0.3-1.2); BLOOD UREA NITROGEN 22 MG/DL (9-23); CARBON DIOXIDE LEVEL 30 MMOL/L (20-31); CHLORIDE LEVEL 101 MMOL/L (98-107); CREATININE FOR GFR 0.82 MG/DL (0.70-1.30); GLOMERULAR FILTRATION RATE > 60.0 (>56); GLUCOSE, FASTING 110 MG/DL (60-100); POTASSIUM SERUM 4.4 MMOL/L (3.5-5.1); SODIUM LEVEL 137 MMOL/L (136-145); TOTAL PROTEIN 6.2 G/DL (5.7-8.2)
[2022-11-23 08:00] VITALS: BP 120/77
[2022-11-23] MEDS: INSULIN LISPRO (NovoLOG) PER UNIT SC SCH ×2 (08:19→12:00)
[2022-11-23] MEDS: busPIRone 10 MG TAB PO SCH ×2 (08:19→12:07)
[2022-11-23] MEDS: RIVAROXABAN 15MG TAB (XARELTO) PO SCH (08:19)
[2022-11-23] MEDS: BACTRIM 160MG/800MG DS TAB PO SCH (08:19)
[2022-11-23] MEDS: THIAMINE 100 MG TAB PO SCH (08:19)
[2022-11-23] MEDS: PREGABALIN 75 MG CAP(LYRICA) PO SCH (08:19)
[2022-11-23] MEDS: FOLIC ACID 1MG TAB PO SCH (08:20)
[2022-11-23] MEDS: METHADONE 10MG TAB PO SCH (08:20)
[2022-11-23] MEDS: MULTIVITAMINS/MINERALS THERAP 1 TAB PO SCH (08:20)
[2022-11-23 14:00] VITALS: BP 125/86
[2022-11-23] MEDS ORDERED: FOLI1TAB11 PO (15:23)
[2022-11-23] MEDS ORDERED: XARE20TA PO (15:23)
[2022-11-23] MEDS ORDERED: XARE15TA PO (15:23)
== END 2022-11-23 17:00 | disposition home or self-care (01) | DRG 196 ==
LOC: M ED 19:13 → M ED INP 23:23 → M MS4PR 11-19 08:45
PROVIDERS: ADMIT Internal Medicine; ATTEND Student in an Organized Health Care Education/Training Program
DX: J84.82 Adult pulmonary Langerhans cell histiocytosis (principal); J96.21 Acute and chronic respiratory failure with hypoxia; F11.20 Opioid dependence, uncomplicated; N17.9 Acute kidney failure, unspecified; M62.82 Rhabdomyolysis; K21.9 Gastro-esophageal reflux disease without esophagitis; R25.9 Unspecified abnormal involuntary movements; R74.01 Elevation of levels of liver transaminase levels; I10 Essential (primary) hypertension; I27.20 Pulmonary hypertension, unspecified; F31.9 Bipolar disorder, unspecified; R94.5 Abnormal results of liver function studies; F41.9 Anxiety disorder, unspecified; M19.90 Unspecified osteoarthritis, unspecified site; G47.33 Obstructive sleep apnea (adult) (pediatric); B19.20 Unspecified viral hepatitis C without hepatic coma; Z79.899 Other long term (current) drug therapy; Z79.52 Long term (current) use of systemic steroids

== ENCOUNTER 2022-12-30 11:10 | Inpatient (IN) | payer MEDICARE, MEDICAID ==
[~2022-12-30] VITALS: Ht 182.9 cm; Wt 87.7 kg
[2022-12-30] VITALS (10 sets, daily range): BP systolic 137–187; BP diastolic 63–90; TEMP 96.7; O2SAT 88–95
[~2022-12-30 11:10] MED LIST changes: +FOLI1TAB11 PO; +METH10CO PO; +NOTE; +XARE15TA PO; +XARE20TA PO
[2022-12-30] MEDS ORDERED: DEXTROSE 50% 50ML SYRINGE IV STA ×2 (11:42→21:20)
[2022-12-30] MEDS ORDERED: DEXTROSE 50% 50ML SYRINGE As Ordered ONE (11:43)
[2022-12-30] MEDS ORDERED: NS 1,000 ML IV ONE ×2 (12:00→16:50)
[2022-12-30 12:06] LABS: HEMOGLOBIN 14.2 g/dl (13.5-17.5); MEAN CORPUSCULAR HEMOGLOBIN 26.5 pg (27.0-33.0); MEAN CORPUSCULAR HGB CONC 28.4 g/dl (32.0-36.5); MEAN CORPUSCULAR VOLUME 93.5 fl (80.0-96.0); PLATELET COUNT, AUTOMATED 104 10^3/uL (150-450); RED BLOOD COUNT 5.35 10^6/uL (4.30-6.10)
[2022-12-30] MEDS ORDERED: NS 3,120 ML in IV 1 EA IV ONE (12:15)
[2022-12-30] MEDS ORDERED: PIPERACILLIN/TAZOBACTAM SOD 4.5 GM in D5W MINI-BAG PLUS 50 ML IV ONE (12:15)
[2022-12-30 12:17] LABS: WHITE BLOOD COUNT 31.6 10^3/uL (4.0-10.0)
[2022-12-30 12:25] LABS: ABG BASE EXCESS -12.4 (-2.0-2.0); ABG HCO3 15.7 MMOL/L (22.0-26.0); ABG O2 SATURATION 94.4 % (95.0-99.0); ABG PARTIAL PRESSURE CO2 43.8 mmHg (35.0-45.0); ABG PARTIAL PRESSURE O2 95.1 mmHg (75.0-100.0); ABG STANDARD HCO3 14.9 MMOL/L. (22.0-26.0)
[2022-12-30 12:28] LABS: ETHYL ALCOHOL (ETHANOL) < 0.003 % (0.000-0.010)
[2022-12-30 12:30] LABS: SALICYLATE LEVEL 8.6 MG/DL (<30)
[2022-12-30 12:31] LABS: ACETAMINOPHEN LEVEL < 2.0 UG/ML (10.0-20.0)
[2022-12-30 12:38] LABS: ATYPICAL LYMPH 1 % (0-5); LYMPHOCYTES 8 % (16-44); METAMYELOCYTES 2 % (0-0); MONOCYTES 4 % (0-5); NEUTROPHILS 70 % (28-66)
[2022-12-30 12:39] LABS: HYPOCHROMASIA 2+
[2022-12-30 12:40] LABS: ANISOCYTOSIS 3+; PLATELET ESTIMATE DECREASED (NORMAL)
[2022-12-30 12:48] LABS: ABG pH (ARTERIAL) 7.172 UNITS (7.350-7.450)
[2022-12-30 12:49] LABS: ALBUMIN 3.5 G/DL (3.2-5.2); ALKALINE PHOSPHATASE 77 U/L (46-116); BILIRUBIN,DIRECT 0.8 MG/DL (<0.4); BILIRUBIN,TOTAL 1.3 MG/DL (0.3-1.2); BLOOD UREA NITROGEN 32 MG/DL (9-23); CALCIUM LEVEL 9.2 MG/DL (8.5-10.1); CARBON DIOXIDE LEVEL 18 MMOL/L (20-31); CHLORIDE LEVEL 98 MMOL/L (98-107); CK-MB VALUE MASS 56.8 NG/ML (<3.6); CREATININE FOR GFR 4.15 MG/DL (0.70-1.30); GLOMERULAR FILTRATION RATE 16.1 (>56); GLUCOSE, FASTING 39 MG/DL (60-100); POTASSIUM SERUM 5.2 MMOL/L (3.5-5.1); SODIUM LEVEL 139 MMOL/L (136-145); THYROID STIMULATING HORMONE 5.093 uIU/ML (0.55-4.78); TOTAL PROTEIN 6.1 G/DL (5.7-8.2)
[2022-12-30] MEDS ORDERED: LIDOCAINE 2% 5ML JELLY UROJET TOP ONE (12:50)
[2022-12-30 13:29] LABS: ALT/SGPT > 6000 U/L (7.0-40); AST/SGOT > 6000 U/L (<34); CPK CREATINE PHOSPHOKINASE 2095 U/L (46-171); MB/CK RELATIVE INDEX 2.71 (< OR =4)
[2022-12-30 14:28] LABS: APPEARANCE, URINE CLOUDY (CLEAR); BACTERIA, URINE AUTO NEGATIVE (NEGATIVE); BILIRUBIN, URINE AUTO NEGATIVE (NEGATIVE); BLOOD, URINE BLOOD NEGATIVE (NEGATIVE); COLOR, URINE AMBER (YELLOW); GLUCOSE, URINE (UA) AUTO 1+ mg/dL (NEGATIVE); KETONE, URINE AUTO NEGATIVE (NEGATIVE); LEUKOCYTE ESTERASE, URINE AUTO TRACE (NEGATIVE); MUCUS, URINE SMALL (NEGATIVE); NITRITE, URINE AUTO NEGATIVE (NEGATIVE); PROTEIN, URINE AUTO 2+ mg/dL (NEGATIVE); RBC, URINE AUTO 2 /HPF (0-3); SPECIFIC GRAVITY URINE AUTO 1.013 (1.002-1.035); SQUAMOUS EPITHELIAL CELL UR AU 1 /HPF (0-6); WBC, URINE AUTO 0 /HPF (0-3)
[2022-12-30 14:48] LABS: AMPHETAMINES LEVEL URINE NEGATIVE (NEGATIVE); BENZODIAZEPINES URINE NEGATIVE (NEGATIVE); CANNABINOIDS URINE NEGATIVE (NEGATIVE); OPIATES URINE NEGATIVE (NEGATIVE); PHENCYCLIDINE URINE NEGATIVE (NEGATIVE)
[2022-12-30 14:49] LABS: BARBITURATES URINE NEGATIVE (NEGATIVE); COCAINE METABOLITE URINE NEGATIVE (NEGATIVE)
[2022-12-30 14:50] LABS: METHADONE URINE POSITIVE (NEGATIVE)
[2022-12-30 15:13] LABS: ABG BASE EXCESS -10.1 (-2.0-2.0); ABG O2 SATURATION 94.5 % (95.0-99.0); ABG PARTIAL PRESSURE CO2 41.6 mmHg (35.0-45.0); ABG PARTIAL PRESSURE O2 88.4 mmHg (75.0-100.0); ABG STANDARD HCO3 16.5 MMOL/L. (22.0-26.0); ABG TOTAL CO2 18.3 MMOL/L (22.0-29.0)
[2022-12-30 15:15] LABS: ABG pH (ARTERIAL) 7.229 UNITS (7.350-7.450)
[2022-12-30 15:45] LABS: ALBUMIN 2.8 G/DL (3.2-5.2); ALKALINE PHOSPHATASE 65 U/L (46-116); BILIRUBIN,TOTAL 1.3 MG/DL (0.3-1.2); BLOOD UREA NITROGEN 33 MG/DL (9-23); CALCIUM LEVEL 7.6 MG/DL (8.5-10.1); CARBON DIOXIDE LEVEL 20 MMOL/L (20-31); CHLORIDE LEVEL 101 MMOL/L (98-107); CREATININE FOR GFR 4.22 MG/DL (0.70-1.30); GLOMERULAR FILTRATION RATE 15.8 (>56); GLUCOSE, FASTING 165 MG/DL (60-100); POTASSIUM SERUM 5.5 MMOL/L (3.5-5.1); SODIUM LEVEL 139 MMOL/L (136-145)
[2022-12-30 16:01] LABS: ALT/SGPT > 6000 U/L (7.0-40); AST/SGOT > 6000 U/L (<34)
[2022-12-30 16:25] LABS: LIPASE 123 U/L (12-53)
[2022-12-30 16:46] LABS: PARTIAL THROMBOPLASTIN TIME 46.1 SECONDS (24.8-34.2); PROTHROMBIN TIME 75.1 SECONDS (12.5-14.5)
[2022-12-30 17:20] LABS: INR 9.08
[2022-12-30] MEDS ORDERED: PHYTONADIONE 5 MG TAB PO ONE (18:35)
[2022-12-30] MEDS ORDERED: TREP1VIA INH (18:54)
[2022-12-30] MEDS ORDERED: HYDROCORTISONE 100MG/2ML VIAL IV ONE (19:00)
[2022-12-30] MEDS ORDERED: SODIUM BICARBONATE 150 MEQ in D5W 1,000 ML IV SCH (19:00)
[2022-12-30 19:38] LABS: HEMATOCRIT 46.3 % (42.0-52.0); HEMOGLOBIN 13.4 g/dl (13.5-17.5); MEAN CORPUSCULAR HEMOGLOBIN 26.3 pg (27.0-33.0); MEAN CORPUSCULAR HGB CONC 28.9 g/dl (32.0-36.5); RED BLOOD COUNT 5.09 10^6/uL (4.30-6.10); WHITE BLOOD COUNT 25.2 10^3/uL (4.0-10.0)
[2022-12-30 19:59] LABS: LDH LACTATE DEHYDROGENASE > 4500 U/L (120-246)
[2022-12-30 20:00] LABS: ALBUMIN 2.9 G/DL (3.2-5.2); ALKALINE PHOSPHATASE 70 U/L (46-116); ALT/SGPT > 6000 U/L (7.0-40); AST/SGOT > 6000 U/L (<34); BILIRUBIN,TOTAL 1.5 MG/DL (0.3-1.2); BLOOD UREA NITROGEN 34 MG/DL (9-23); CALCIUM LEVEL 6.5 MG/DL (8.5-10.1); CARBON DIOXIDE LEVEL 18 MMOL/L (20-31); CHLORIDE LEVEL 105 MMOL/L (98-107); CREATININE FOR GFR 4.22 MG/DL (0.70-1.30); GLOMERULAR FILTRATION RATE 15.8 (>56); GLUCOSE, FASTING 190 MG/DL (60-100); SODIUM LEVEL 139 MMOL/L (136-145); TOTAL PROTEIN 5.1 G/DL (5.7-8.2)
[2022-12-30 20:07] LABS: PLATELET COUNT, AUTOMATED 75 10^3/uL (150-450)
[2022-12-30] MEDS: IPRATROPIUM 0.5MG/ALBUTEROL 2.5MG INH SOL UD 3ML (DUONEB) NEB SCH (20:16)
[2022-12-30] MEDS: PIPERACILLIN/TAZOBACTAM SOD 2.25 GM in D5W MINI-BAG PLUS 50 ML IV SCH (20:16)
[2022-12-30 20:38] LABS: ABG BASE EXCESS -8.7 (-2.0-2.0); ABG HCO3 18.6 MMOL/L (22.0-26.0); ABG O2 SATURATION 92.5 % (95.0-99.0); ABG PARTIAL PRESSURE CO2 44.8 mmHg (35.0-45.0); ABG PARTIAL PRESSURE O2 78.3 mmHg (75.0-100.0); ABG STANDARD HCO3 17.5 MMOL/L. (22.0-26.0); ABG TOTAL CO2 19.9 MMOL/L (22.0-29.0)
[2022-12-30 20:39] LABS: ABG pH (ARTERIAL) 7.235 UNITS (7.350-7.450)
[2022-12-30] MEDS: PANTOPRAZOLE 40MG VIAL IV SCH (21:13)
[2022-12-30 21:18] LABS: INR 3.91; PROTHROMBIN TIME 38.9 SECONDS (12.5-14.5)
[2022-12-30 21:19] LABS: PARTIAL THROMBOPLASTIN TIME 37.1 SECONDS (24.8-34.2)
[2022-12-30] MEDS ORDERED: HumuLIN R (REGULAR) INSULIN (NovoLIN R) **100U/ML** PER UNIT IV STA (21:20)
[2022-12-30 21:24] LABS: FIBRINOGEN 137 MG/DL (268-480)
[2022-12-30] MEDS: CALCIUM GLUCONATE 1,000 MG in D5W MINI-BAG PLUS 100 ML IV SCH ×2 (21:36→22:57)
[2022-12-30] MEDS ORDERED: FUROSEMIDE 100MG/10ML VIAL IV ONE (21:55)
[2022-12-30 22:01] LABS: D-DIMER QUANT > 4000 ng/ml (<500)
[2022-12-30] MEDS ORDERED: PRED20TA PO (23:14)
[2022-12-30] MEDS ORDERED: [UNRECOGNIZED DRUG - CODE] INH (23:14)
[2022-12-30] MEDS ORDERED: XARE20TA PO (23:14)
[2022-12-30] MEDS ORDERED: ALBU2.5V10 INH (23:14)
[2022-12-30] MEDS ORDERED: HOME MED LIST COMPLETE! XX SCH (23:15)
[2022-12-30 23:46] LABS: HEMATOCRIT 49.6 % (42.0-52.0); HEMOGLOBIN 14.1 g/dl (13.5-17.5)
[2022-12-31] VITALS (34 sets, daily range): BP systolic 110–166; BP diastolic 57–101; TEMP 97.5–98.6; O2SAT 88–98
[2022-12-31] MEDS: PIPERACILLIN/TAZOBACTAM SOD 2.25 GM in D5W MINI-BAG PLUS 50 ML IV SCH ×4 (00:30→18:24)
[2022-12-31 00:50] LABS: ABG BASE EXCESS -6.8 (-2.0-2.0); ABG O2 SATURATION 95.4 % (95.0-99.0); ABG PARTIAL PRESSURE CO2 50.8 mmHg (35.0-45.0); ABG PARTIAL PRESSURE O2 95.3 mmHg (75.0-100.0); ABG STANDARD HCO3 18.9 MMOL/L. (22.0-26.0); ABG TOTAL CO2 22.5 MMOL/L (22.0-29.0)
[2022-12-31 00:55] LABS: ABG pH (ARTERIAL) 7.234 UNITS (7.350-7.450)
[2022-12-31] MEDS ORDERED: FUROSEMIDE 100MG/10ML VIAL IV ONE (01:00)
[2022-12-31 04:49] LABS: HEMATOCRIT 46.3 % (42.0-52.0); HEMOGLOBIN 13.6 g/dl (13.5-17.5); MEAN CORPUSCULAR HEMOGLOBIN 26.5 pg (27.0-33.0); MEAN CORPUSCULAR HGB CONC 29.4 g/dl (32.0-36.5); MEAN CORPUSCULAR VOLUME 90.1 fl (80.0-96.0); RED BLOOD COUNT 5.14 10^6/uL (4.30-6.10); WHITE BLOOD COUNT 22.2 10^3/uL (4.0-10.0)
[2022-12-31 04:53] LABS: PLATELET COUNT, AUTOMATED 64 10^3/uL (150-450)
[2022-12-31 05:04] LABS: OSMOLALITY SERUM 310 MOSM/KG (275-295)
[2022-12-31 05:18] LABS: ALBUMIN 3.1 G/DL (3.2-5.2); ALKALINE PHOSPHATASE 76 U/L (46-116); BILIRUBIN,TOTAL 1.6 MG/DL (0.3-1.2); BLOOD UREA NITROGEN 45 MG/DL (9-23); CARBON DIOXIDE LEVEL 26 MMOL/L (20-31); CHLORIDE LEVEL 103 MMOL/L (98-107); CREATININE FOR GFR 5.09 MG/DL (0.70-1.30); GLOMERULAR FILTRATION RATE 12.7 (>56); GLUCOSE, FASTING 179 MG/DL (60-100); POTASSIUM SERUM 5.6 MMOL/L (3.5-5.1); SODIUM LEVEL 139 MMOL/L (136-145)
[2022-12-31 05:33] LABS: ALT/SGPT > 6000 U/L (7.0-40); AST/SGOT > 6000 U/L (<34); TOTAL PROTEIN 5.4 G/DL (5.7-8.2)
[2022-12-31 05:41] LABS: ABG BASE EXCESS -5.2 (-2.0-2.0); ABG HCO3 21.8 MMOL/L (22.0-26.0); ABG O2 SATURATION 96.5 % (95.0-99.0); ABG PARTIAL PRESSURE CO2 47.8 mmHg (35.0-45.0); ABG PARTIAL PRESSURE O2 99.9 mmHg (75.0-100.0); ABG STANDARD HCO3 20.2 MMOL/L. (22.0-26.0); ABG TOTAL CO2 23.3 MMOL/L (22.0-29.0); ABG pH (ARTERIAL) 7.277 UNITS (7.350-7.450)
[2022-12-31] MEDS: IPRATROPIUM 0.5MG/ALBUTEROL 2.5MG INH SOL UD 3ML (DUONEB) NEB SCH ×4 (07:34→18:59)
[2022-12-31] MEDS ORDERED: VANCOMYCIN HCL 1,000 MG, VIAL MATE ADAPTER 1 EACH in D5W 250 ML IV SCH (07:45)
[2022-12-31] MEDS ORDERED: D5W IV ONE ×3 (09:00→14:00)
[2022-12-31] MEDS ORDERED: LACTULOSE 20GM/30ML SYRUP UDC PO SCH (09:00)
[2022-12-31] MEDS ORDERED: ACETYLCYSTEINE IV ONE ×3 (09:00→14:00)
[2022-12-31] MEDS ORDERED: VANCOMYCIN INTERMITTENT/PULSE DOSING BY CLINICAL PHARMACIST PER DOSING PROTOCOL XX SCH (09:05)
[2022-12-31] MEDS: PANTOPRAZOLE 40MG VIAL IV SCH ×2 (09:26→20:05)
[2022-12-31 09:54] LABS: CPK CREATINE PHOSPHOKINASE 7295 U/L (46-171)
[2022-12-31] MEDS: FUROSEMIDE injection 250 MG in D5W 225 ML IV SCH (10:00)
[2022-12-31] MEDS ORDERED: VANCOMYCIN HCL 750 MG, VIAL MATE ADAPTER 1 EACH in D5W 250 ML IV ONE ×2 (10:00→11:00)
[2022-12-31 13:55] LABS: ABG BASE EXCESS -6.7 (-2.0-2.0); ABG HCO3 19.6 MMOL/L (22.0-26.0); ABG O2 SATURATION 95.3 % (95.0-99.0); ABG PARTIAL PRESSURE CO2 41.7 mmHg (35.0-45.0); ABG PARTIAL PRESSURE O2 85.8 mmHg (75.0-100.0); ABG TOTAL CO2 20.8 MMOL/L (22.0-29.0); ABG pH (ARTERIAL) 7.289 UNITS (7.350-7.450)
[2022-12-31] MEDS ORDERED: ONDANSETRON 4MG 2ML VIAL IV PRN (15:50)
[2022-12-31] MEDS ORDERED: LACTULOSE 20GM/30ML SYRUP UDC PO ONE (16:25)
[2022-12-31] MEDS ORDERED: LACTULOSE 20GM/30ML SYRUP UDC PR ONE (17:00)
[2022-12-31 18:47] LABS: ALBUMIN 2.7 G/DL (3.2-5.2); CALCIUM LEVEL 5.5 MG/DL (8.5-10.1); CREATININE FOR GFR 5.94 MG/DL (0.70-1.30); GLOMERULAR FILTRATION RATE 10.6 (>56); MAGNESIUM LEVEL 1.6 MG/DL (1.8-2.4); POTASSIUM SERUM 5.1 MMOL/L (3.5-5.1)
[2022-12-31] MEDS ORDERED: CALCIUM GLUCONATE 1,000 MG in D5W MINI-BAG PLUS 100 ML IV ONE (19:00)
[2022-12-31] MEDS ORDERED: MAG SULF 1GM/100ML (MAG RUN) 1 GM in IV 1 EA IV ONE (20:00)
[2022-12-31] MEDS: LACTULOSE 20GM/30ML SYRUP UDC PO SCH (20:05)
[2022-12-31] MEDS: CALCIUM GLUCONATE 1,000 MG in D5W MINI-BAG PLUS 100 ML IV SCH ×2 (22:18→23:33)
[2023-01-01] VITALS (63 sets, daily range): BP systolic 115–168; BP diastolic 63–105; TEMP 96.8–98.3; O2SAT 82–96
[2023-01-01] MEDS: PIPERACILLIN/TAZOBACTAM SOD 2.25 GM in D5W MINI-BAG PLUS 50 ML IV SCH ×2 (01:17→06:03)
[2023-01-01 05:03] LABS: BASO % 0.2 % (0.0-1.0); EOS % 0.1 % (0.0-3.0); HEMATOCRIT 41.7 % (42.0-52.0); HEMOGLOBIN 12.8 g/dl (13.5-17.5); LYMPH % 6.7 % (24.0-44.0); MEAN CORPUSCULAR HEMOGLOBIN 26.4 pg (27.0-33.0); MEAN CORPUSCULAR HGB CONC 30.7 g/dl (32.0-36.5); MONO # 0.4 10^3/uL (0.0-0.8); MONO % 2.9 % (2.0-8.0); NEUTROPHILS # 12.8 10^3/uL (1.5-8.5); NEUTROPHILS % 88.8 % (36.0-66.0); RED BLOOD COUNT 4.85 10^6/uL (4.30-6.10); WHITE BLOOD COUNT 14.4 10^3/uL (4.0-10.0)
[2023-01-01 05:28] LABS: INR 2.52; PROTHROMBIN TIME 27.6 SECONDS (12.5-14.5)
[2023-01-01 05:30] LABS: VANCOMYCIN RANDOM 14.3 UG/ML
[2023-01-01 05:38] LABS: ABG BASE EXCESS -8.8 (-2.0-2.0); ABG HCO3 18.8 MMOL/L (22.0-26.0); ABG PARTIAL PRESSURE CO2 46.8 mmHg (35.0-45.0); ABG STANDARD HCO3 17.4 MMOL/L. (22.0-26.0); ABG TOTAL CO2 20.2 MMOL/L (22.0-29.0)
[2023-01-01 05:40] LABS: ABG pH (ARTERIAL) 7.222 UNITS (7.350-7.450)
[2023-01-01 05:59] LABS: HIV 1&2 SCREEN NEGATIVE (NEGATIVE)
[2023-01-01 06:02] LABS: PLATELET COUNT, AUTOMATED 40 10^3/uL (150-450)
[2023-01-01 06:11] LABS: ALBUMIN 2.7 G/DL (3.2-5.2); ALKALINE PHOSPHATASE 80 U/L (46-116); ALT/SGPT 1000.00001 U/L (7.0-40); AST/SGOT > 6000 U/L (<34); BILIRUBIN,DIRECT 1.1 MG/DL (<0.4); BILIRUBIN,TOTAL 1.5 MG/DL (0.3-1.2); BLOOD UREA NITROGEN 59 MG/DL (9-23); CALCIUM LEVEL 6.2 MG/DL (8.5-10.1); CARBON DIOXIDE LEVEL 22 MMOL/L (20-31); CHLORIDE LEVEL 98 MMOL/L (98-107); CREATININE FOR GFR 6.82 MG/DL (0.70-1.30); GLOMERULAR FILTRATION RATE 9.1 (>56); GLUCOSE, FASTING 157 MG/DL (60-100); PHOSPHORUS LEVEL 8.6 MG/DL (2.5-4.9); POTASSIUM SERUM 5.4 MMOL/L (3.5-5.1); SODIUM LEVEL 136 MMOL/L (136-145); TOTAL PROTEIN 5.1 G/DL (5.7-8.2)
[2023-01-01] MEDS: IPRATROPIUM 0.5MG/ALBUTEROL 2.5MG INH SOL UD 3ML (DUONEB) NEB SCH ×4 (07:15→19:11)
[2023-01-01 07:51] LABS: AMYLASE 456 U/L (30-118); LIPASE 236 U/L (12-53)
[2023-01-01] MEDS ORDERED: CALCIUM GLUCONATE 1,000 MG in D5W MINI-BAG PLUS 100 ML IV ONE (08:00)
[2023-01-01] MEDS: LACTULOSE 20GM/30ML SYRUP UDC PO SCH ×3 (08:11→20:08)
[2023-01-01] MEDS: PANTOPRAZOLE 40MG VIAL IV SCH ×2 (08:11→20:08)
[2023-01-01] MEDS: FUROSEMIDE injection 250 MG in D5W 225 ML IV SCH (09:19)
[2023-01-01] MEDS ORDERED: HEPARIN 1,000UNITS/ML 10ML VIAL (FOR RADIOLOGY & DIALYSIS ONLY) IV STA (09:54)
[2023-01-01] MEDS ORDERED: VANCOMYCIN HCL 1,000 MG, VIAL MATE ADAPTER 1 EACH in D5W 250 ML IV ONE (10:00)
[2023-01-01] MEDS ORDERED: SODIUM CHLORIDE 0.9% 1000ML IV PRN (10:30)
[2023-01-01 11:07] LABS: ALBUMIN 2.8 G/DL (3.2-5.2); BLOOD UREA NITROGEN 60 MG/DL (9-23); CALCIUM LEVEL 6.4 MG/DL (8.5-10.1); CARBON DIOXIDE LEVEL 21 MMOL/L (20-31); CHLORIDE LEVEL 98 MMOL/L (98-107); CREATININE FOR GFR 7.27 MG/DL (0.70-1.30); GLOMERULAR FILTRATION RATE 8.4 (>56); GLUCOSE, FASTING 178 MG/DL (60-100); PHOSPHORUS LEVEL 8.7 MG/DL (2.5-4.9); POTASSIUM SERUM 5.8 MMOL/L (3.5-5.1); SODIUM LEVEL 136 MMOL/L (136-145)
[2023-01-01 11:09] LABS: HEPATITIS B SURFACE ANTIBODY NEGATIVE (POSITIVE)
[2023-01-01 11:21] LABS: HEPATITIS B SURFACE ANTIGEN NEGATIVE (NEGATIVE)
[2023-01-01 11:42] LABS: HEPATITIS B CORE ANTIBODY IGM NEGATIVE (NEGATIVE)
[2023-01-01 11:46] LABS: HEPATITIS C VIRUS ABY INDEX > 11.00 INDEX (<0.8)
[2023-01-01 12:06] LABS: ABG BASE EXCESS -8.4 (-2.0-2.0); ABG HCO3 20.9 MMOL/L (22.0-26.0); ABG O2 SATURATION 93.6 % (95.0-99.0); ABG PARTIAL PRESSURE CO2 59.5 mmHg (35.0-45.0); ABG PARTIAL PRESSURE O2 84.9 mmHg (75.0-100.0); ABG STANDARD HCO3 17.7 MMOL/L. (22.0-26.0); ABG TOTAL CO2 22.7 MMOL/L (22.0-29.0)
[2023-01-01 12:08] LABS: ABG pH (ARTERIAL) 7.163 UNITS (7.350-7.450)
[2023-01-01] MEDS ORDERED: SODIUM BICARBONATE 150 MEQ in D5W 1,000 ML IV STA (12:28)
[2023-01-01] MEDS ORDERED: SODIUM BICARBONATE 150 MEQ in D5W 1,000 ML IV SCH (13:00)
[2023-01-01] MEDS ORDERED: MIDAZOLAM INJ 2MG/2ML VIAL IV SCH (13:30)
[2023-01-01] MEDS ORDERED: MIDAZOLAM INJ 2MG/2ML VIAL IV STA (15:28)
[2023-01-01] MEDS: PIPERACILLIN/TAZOBACTAM SOD 4.5 GM in D5W MINI-BAG PLUS 50 ML IV SCH (15:39)
[2023-01-02] VITALS (18 sets, daily range): BP systolic 104–148; BP diastolic 60–103; TEMP 97.2–98.1; O2SAT 89–98
[2023-01-02] MEDS: PIPERACILLIN/TAZOBACTAM SOD 4.5 GM in D5W MINI-BAG PLUS 50 ML IV SCH ×2 (03:22→17:41)
[2023-01-02 04:29] LABS: BASO % 0.3 % (0.0-1.0); HEMATOCRIT 40.7 % (42.0-52.0); HEMOGLOBIN 12.3 g/dl (13.5-17.5); LYMPH # 0.4 10^3/uL (1.5-5.0); LYMPH % 3.4 % (24.0-44.0); MEAN CORPUSCULAR HEMOGLOBIN 26.4 pg (27.0-33.0); MEAN CORPUSCULAR HGB CONC 30.2 g/dl (32.0-36.5); MEAN CORPUSCULAR VOLUME 87.3 fl (80.0-96.0); MONO # 0.5 10^3/uL (0.0-0.8); MONO % 4.7 % (2.0-8.0); NEUTROPHILS # 9.7 10^3/uL (1.5-8.5); NEUTROPHILS % 90.7 % (36.0-66.0); RED BLOOD COUNT 4.66 10^6/uL (4.30-6.10); WHITE BLOOD COUNT 10.8 10^3/uL (4.0-10.0)
[2023-01-02 04:30] LABS: PLATELET COUNT, AUTOMATED 33 10^3/uL (150-450)
[2023-01-02 04:50] LABS: INR 1.81; PROTHROMBIN TIME 21.3 SECONDS (12.5-14.5)
[2023-01-02] MEDS ORDERED: OLANZapine INTRAMUSCULAR 10MG VIAL IM ONE (05:00)
[2023-01-02 05:21] LABS: ALBUMIN 2.5 G/DL (3.2-5.2); BILIRUBIN,DIRECT 1.6 MG/DL (<0.4); BILIRUBIN,TOTAL 2.3 MG/DL (0.3-1.2); CALCIUM LEVEL 6.4 MG/DL (8.5-10.1); CREATININE FOR GFR 5.22 MG/DL (0.70-1.30); GLOMERULAR FILTRATION RATE 12.4 (>56); MAGNESIUM LEVEL 1.5 MG/DL (1.8-2.4); PHOSPHORUS LEVEL 7.6 MG/DL (2.5-4.9); POTASSIUM SERUM 5.1 MMOL/L (3.5-5.1); TOTAL PROTEIN 4.6 G/DL (5.7-8.2)
[2023-01-02] MEDS ORDERED: MAG SULF 1GM/100ML (MAG RUN) 1 GM in IV 1 EA IV ONE (05:30)
[2023-01-02 05:59] LABS: ABG BASE EXCESS -7.6 (-2.0-2.0); ABG HCO3 21.5 MMOL/L (22.0-26.0); ABG O2 SATURATION 97.8 % (95.0-99.0); ABG PARTIAL PRESSURE CO2 59.8 mmHg (35.0-45.0); ABG PARTIAL PRESSURE O2 117.9 mmHg (75.0-100.0); ABG STANDARD HCO3 18.4 MMOL/L. (22.0-26.0); ABG TOTAL CO2 23.3 MMOL/L (22.0-29.0)
[2023-01-02 06:04] LABS: ABG pH (ARTERIAL) 7.173 UNITS (7.350-7.450)
[2023-01-02] MEDS: IPRATROPIUM 0.5MG/ALBUTEROL 2.5MG INH SOL UD 3ML (DUONEB) NEB SCH ×4 (07:37→20:18)
[2023-01-02] MEDS: PANTOPRAZOLE 40MG VIAL IV SCH ×2 (08:27→20:03)
[2023-01-02] MEDS ORDERED: SODIUM CHLORIDE 0.9% 1000ML IV PRN (09:20)
[2023-01-02] MEDS ORDERED: HEPARIN 1,000UNITS/ML 10ML VIAL (FOR RADIOLOGY & DIALYSIS ONLY) IV PRN (09:20)
[2023-01-02] MEDS ORDERED: HEPARIN 1,000UNITS/ML 10ML VIAL (FOR RADIOLOGY & DIALYSIS ONLY) XX SCH (10:00)
[2023-01-02 12:07] LABS: HEPATITIS C QUANTITATION HCV Not Detected IU/mL (.)
[2023-01-02 12:47] LABS: ABG HCO3 23.3 MMOL/L (22.0-26.0); ABG O2 SATURATION 94.4 % (95.0-99.0); ABG PARTIAL PRESSURE CO2 57.9 mmHg (35.0-45.0); ABG PARTIAL PRESSURE O2 83.3 mmHg (75.0-100.0); ABG STANDARD HCO3 20.3 MMOL/L. (22.0-26.0); ABG TOTAL CO2 25.1 MMOL/L (22.0-29.0)
[2023-01-02 12:53] LABS: ABG pH (ARTERIAL) 7.223 UNITS (7.350-7.450)
[2023-01-03] VITALS (20 sets, daily range): BP systolic 109–151; BP diastolic 64–94; TEMP 97–98.9; O2SAT 87–99
[2023-01-03] MEDS ORDERED: OLANZapine INTRAMUSCULAR 10MG VIAL IM ONE ×2 (00:35→04:55)
[2023-01-03] MEDS: PIPERACILLIN/TAZOBACTAM SOD 4.5 GM in D5W MINI-BAG PLUS 50 ML IV SCH ×2 (03:49→15:43)
[2023-01-03 04:52] LABS: BASO % 0.1 % (0.0-1.0); EOS % 0.3 % (0.0-3.0); HEMATOCRIT 37.4 % (42.0-52.0); HEMOGLOBIN 11.4 g/dl (13.5-17.5); LYMPH # 0.6 10^3/uL (1.5-5.0); LYMPH % 6.6 % (24.0-44.0); MEAN CORPUSCULAR HEMOGLOBIN 26.3 pg (27.0-33.0); MEAN CORPUSCULAR HGB CONC 30.5 g/dl (32.0-36.5); MEAN CORPUSCULAR VOLUME 86.2 fl (80.0-96.0); MONO # 0.5 10^3/uL (0.0-0.8); MONO % 5.9 % (2.0-8.0); NEUTROPHILS # 7.6 10^3/uL (1.5-8.5); NEUTROPHILS % 86.3 % (36.0-66.0); RED BLOOD COUNT 4.34 10^6/uL (4.30-6.10); WHITE BLOOD COUNT 8.8 10^3/uL (4.0-10.0)
[2023-01-03] MEDS ORDERED: FUROSEMIDE 20MG/2ML VIAL IV ONE (04:55)
[2023-01-03 04:56] LABS: PLATELET COUNT, AUTOMATED 33 10^3/uL (150-450)
[2023-01-03 05:07] LABS: INR 1.49; PROTHROMBIN TIME 18.3 SECONDS (12.5-14.5)
[2023-01-03 05:41] LABS: ALBUMIN 2.7 G/DL (3.2-5.2); BILIRUBIN,DIRECT 2.1 MG/DL (<0.4); BILIRUBIN,TOTAL 3.1 MG/DL (0.3-1.2); CALCIUM LEVEL 7.3 MG/DL (8.5-10.1); CREATININE FOR GFR 4.57 MG/DL (0.70-1.30); GLOMERULAR FILTRATION RATE 14.4 (>56); MAGNESIUM LEVEL 1.8 MG/DL (1.8-2.4); PHOSPHORUS LEVEL 6.2 MG/DL (2.5-4.9); POTASSIUM SERUM 4.8 MMOL/L (3.5-5.1); TOTAL PROTEIN 5.1 G/DL (5.7-8.2)
[2023-01-03 05:47] LABS: ABG BASE EXCESS -0.6 (-2.0-2.0); ABG HCO3 29.5 MMOL/L (22.0-26.0); ABG O2 SATURATION 98.7 % (95.0-99.0); ABG PARTIAL PRESSURE O2 151.2 mmHg (75.0-100.0); ABG STANDARD HCO3 24.1 MMOL/L. (22.0-26.0); ABG TOTAL CO2 31.8 MMOL/L (22.0-29.0)
[2023-01-03 05:56] LABS: ABG pH (ARTERIAL) 7.199 UNITS (7.350-7.450)
[2023-01-03 05:57] LABS: ABG PARTIAL PRESSURE CO2 77.3 mmHg (35.0-45.0)
[2023-01-03] MEDS ORDERED: HEPARIN 1,000UNITS/ML 10ML VIAL (FOR RADIOLOGY & DIALYSIS ONLY) IV PRN (06:00)
[2023-01-03] MEDS ORDERED: SODIUM CHLORIDE 0.9% 1000ML IV PRN (06:00)
[2023-01-03] MEDS ORDERED: HEPARIN 1,000UNITS/ML 10ML VIAL (FOR RADIOLOGY & DIALYSIS ONLY) XX SCH (06:00)
[2023-01-03] MEDS ORDERED: dexmedeTOMIDine (4MCG/ML)200MCG/50ML BTL (PRECEDEX) As Ordered ONE (07:45)
[2023-01-03] MEDS: dexmedeTOMidine 200 MCG in IV 1 EA IV SCH ×3 (07:49→22:42)
[2023-01-03] MEDS: IPRATROPIUM 0.5MG/ALBUTEROL 2.5MG INH SOL UD 3ML (DUONEB) NEB SCH ×4 (07:52→19:51)
[2023-01-03] MEDS ORDERED: MORPHINE 2 MG/ML 1ML VIAL IV STA (08:06)
[2023-01-03] MEDS ORDERED: MORPHINE 2 MG/ML 1ML VIAL As Ordered ONE (08:07)
[2023-01-03] MEDS ORDERED: MIDAZOLAM INJ 2MG/2ML VIAL IV STA ×2 (08:08→15:23)
[2023-01-03] MEDS ORDERED: MIDAZOLAM INJ 2MG/2ML VIAL As Ordered ONE (08:09)
[2023-01-03] MEDS: METHADONE 5MG TAB PO SCH (09:00)
[2023-01-03] MEDS: MULTIVITAMIN -ADULT INJECTION 10 ML, THIAMINE INJection 100 MG, FOLIC ACID 1 MG in NS 1... IV SCH (10:54)
[2023-01-03] MEDS: methylPREDNISolone 125MG 2ML VIAL IV SCH ×3 (10:54→23:30)
[2023-01-03] MEDS: PANTOPRAZOLE 40MG VIAL IV SCH ×2 (10:54→20:13)
[2023-01-03 12:44] LABS: ABG BASE EXCESS 3.6 (-2.0-2.0); ABG HCO3 30.5 MMOL/L (22.0-26.0); ABG O2 SATURATION 96.7 % (95.0-99.0); ABG PARTIAL PRESSURE CO2 56.6 mmHg (35.0-45.0); ABG PARTIAL PRESSURE O2 92.6 mmHg (75.0-100.0); ABG STANDARD HCO3 27.7 MMOL/L. (22.0-26.0); ABG TOTAL CO2 32.3 MMOL/L (22.0-29.0)
[2023-01-03] MEDS: D5W/0.45% SODIUM CHLORIDE 1,000 ML IV SCH (12:46)
[2023-01-03] MEDS: METHADONE 10MG TAB PO SCH (13:45)
[2023-01-04] VITALS (22 sets, daily range): BP systolic 119–145; BP diastolic 74–88; TEMP 96.4–97.4; O2SAT 66–97
[2023-01-04] MEDS: D5W/0.45% SODIUM CHLORIDE 1,000 ML IV SCH (00:55)
[2023-01-04] MEDS: dexmedeTOMidine 200 MCG in IV 1 EA IV SCH ×4 (00:56→16:49)
[2023-01-04] MEDS: PIPERACILLIN/TAZOBACTAM SOD 4.5 GM in D5W MINI-BAG PLUS 50 ML IV SCH ×2 (03:35→15:32)
[2023-01-04] MEDS ORDERED: MIDAZOLAM INJ 2MG/2ML VIAL IV STA ×8 (04:39→19:22)
[2023-01-04] MEDS ORDERED: MIDAZOLAM INJ 2MG/2ML VIAL As Ordered ONE (04:40)
[2023-01-04] MEDS ORDERED: MORPHINE 4 MG/ML 1ML VIAL IV STA ×5 (04:44→19:13)
[2023-01-04] MEDS ORDERED: MORPHINE 4 MG/ML 1ML VIAL As Ordered ONE (04:46)
[2023-01-04] MEDS ORDERED: FUROSEMIDE 20MG/2ML VIAL IV STA (04:47)
[2023-01-04] MEDS ORDERED: FUROSEMIDE 20MG/2ML VIAL As Ordered ONE (04:49)
[2023-01-04 05:07] LABS: BASO % 0.1 % (0.0-1.0); HEMATOCRIT 36.7 % (42.0-52.0); HEMOGLOBIN 11.2 g/dl (13.5-17.5); LYMPH # 0.4 10^3/uL (1.5-5.0); LYMPH % 5.8 % (24.0-44.0); MEAN CORPUSCULAR HEMOGLOBIN 25.9 pg (27.0-33.0); MEAN CORPUSCULAR HGB CONC 30.5 g/dl (32.0-36.5); MONO # 0.3 10^3/uL (0.0-0.8); MONO % 4.5 % (2.0-8.0); NEUTROPHILS # 6.4 10^3/uL (1.5-8.5); NEUTROPHILS % 89.2 % (36.0-66.0); RED BLOOD COUNT 4.32 10^6/uL (4.30-6.10); WHITE BLOOD COUNT 7.1 10^3/uL (4.0-10.0)
[2023-01-04 05:14] LABS: PLATELET COUNT, AUTOMATED 41 10^3/uL (150-450)
[2023-01-04 05:18] LABS: INR 1.53; PROTHROMBIN TIME 18.7 SECONDS (12.5-14.5)
[2023-01-04 05:56] LABS: ALBUMIN 2.5 G/DL (3.2-5.2); BILIRUBIN,DIRECT 1.5 MG/DL (<0.4); BILIRUBIN,TOTAL 2.3 MG/DL (0.3-1.2); CALCIUM LEVEL 7.5 MG/DL (8.5-10.1); CREATININE FOR GFR 4.34 MG/DL (0.70-1.30); GLOMERULAR FILTRATION RATE 15.3 (>56); PHOSPHORUS LEVEL 5.8 MG/DL (2.5-4.9); POTASSIUM SERUM 4.5 MMOL/L (3.5-5.1); TOTAL PROTEIN 5.8 G/DL (5.7-8.2)
[2023-01-04 06:01] LABS: ABG BASE EXCESS 0.3 (-2.0-2.0); ABG HCO3 27.1 MMOL/L (22.0-26.0); ABG O2 SATURATION 93.5 % (95.0-99.0); ABG PARTIAL PRESSURE CO2 53.4 mmHg (35.0-45.0); ABG PARTIAL PRESSURE O2 78.1 mmHg (75.0-100.0); ABG STANDARD HCO3 24.6 MMOL/L. (22.0-26.0); ABG TOTAL CO2 28.7 MMOL/L (22.0-29.0); ABG pH (ARTERIAL) 7.323 UNITS (7.350-7.450)
[2023-01-04] MEDS: PANTOPRAZOLE 40MG VIAL IV SCH (08:00)
[2023-01-04] MEDS: METHADONE 10MG TAB PO SCH (08:01)
[2023-01-04] MEDS: METHADONE 5MG TAB PO SCH (08:01)
[2023-01-04] MEDS: methylPREDNISolone 125MG 2ML VIAL IV SCH ×2 (08:01→15:31)
[2023-01-04] MEDS: IPRATROPIUM 0.5MG/ALBUTEROL 2.5MG INH SOL UD 3ML (DUONEB) NEB SCH ×3 (08:18→15:43)
[2023-01-04] MEDS: MULTIVITAMIN -ADULT INJECTION 10 ML, THIAMINE INJection 100 MG, FOLIC ACID 1 MG in NS 1... IV SCH (08:51)
[2023-01-04] MEDS ORDERED: OLANZapine 5 MG TAB PO SCH (09:00)
[2023-01-04] MEDS ORDERED: MORPHINE 2 MG/ML 1ML VIAL As Ordered ONE (10:04)
[2023-01-04] MEDS ORDERED: MORPHINE 2 MG/ML 1ML VIAL IV STA (10:06)
[2023-01-04] MEDS ORDERED: MIDAZOLAM INJ 2MG/2ML VIAL IV PRN ×2 (13:40→14:30)
[2023-01-04] MEDS ORDERED: MORPHINE 2 MG/ML 1ML VIAL IV ONE ×2 (16:00→16:15)
[2023-01-04] MEDS ORDERED: SCOPOLAMINE 1MG TRANSDERMAL PATCH TOP PRN (16:15)
[2023-01-04] MEDS ORDERED: LORazepam 2 MG/ML 1ML VIAL IV PRN (16:20)
[2023-01-04] MEDS: MORPHINE SULF IN 0.9% NACL 100 MG in IV 1 EA IV SCH ×4 (17:31→18:03)
[2023-01-04] MEDS ORDERED: LORazepam 2 MG/ML 1ML VIAL IV STA (18:49)
== END 2023-01-04 19:28 | disposition expired | DRG 871 ==
LOC: EDBD 11:10 → M ED 11:10 → M ED INP 17:37 → ENRESERV 19:08 → M ICU 19:51
PROVIDERS: ADMIT Internal Medicine; ATTEND Internal Medicine Pulmonary Disease
PROC: 5A1D70Z Performance of Urinary Filtration, Intermittent, Less than 6 Hours Per Day (ICD-10-PCS; principal; 2023-01-01)
PROC: 02HV33Z Insertion of Infusion Device into Superior Vena Cava, Percutaneous Approach (ICD-10-PCS; 2023-01-01)
PROC: 0JH63XZ Insertion of Tunneled Vascular Access Device into Chest Subcutaneous Tissue and Fascia, Percutaneous Approach (ICD-10-PCS; 2023-01-01)
DX: A41.9 Sepsis, unspecified organism (principal); G93.41 Metabolic encephalopathy; D65 Disseminated intravascular coagulation [defibrination syndrome]; J18.9 Pneumonia, unspecified organism; K72.00 Acute and subacute hepatic failure without coma; R65.21 Severe sepsis with septic shock; J96.21 Acute and chronic respiratory failure with hypoxia; N17.9 Acute kidney failure, unspecified; I24.8 Other forms of acute ischemic heart disease; E87.20 Acidosis, unspecified; M62.82 Rhabdomyolysis; E87.5 Hyperkalemia; I27.20 Pulmonary hypertension, unspecified; J84.10 Pulmonary fibrosis, unspecified; K21.9 Gastro-esophageal reflux disease without esophagitis; I12.9 Hypertensive chronic kidney disease with stage 1 through stage 4 chronic kidney disease, or unspecified chronic kidney disease; D69.6 Thrombocytopenia, unspecified; Z51.5 Encounter for palliative care; Z79.899 Other long term (current) drug therapy